=== PATIENT | female | born 1995 | race Caucasian/White ===

== ENCOUNTER 2016-10-24 20:23 | Outpatient (CLI) | payer OTHER ==
[2016-10-24 21:47] LABS: Amorphous Sediment,Urine Rare /hpf; Appearance,Urine Cloudy (Clear); Bacteria,Urine Rare /hpf; Bilirubin,Urine Negative (Negative); Glucose,Urine (UA) Negative (Negative); Ketones,Urine Negative (Negative); Leukocyte Esterase,Urine Large (Negative); Mucus,Urine Occasional /hpf; Nitrite,Urine Negative (Negative); PH, Urine 6.5 (5.0-8.0); Particle Count 10482; Protein,Urine 1+ (Negative); RBC,Urine 10 /hpf (0-5); Specific Gravity,Urine 1.022 (1.001-1.035); Squamous Epithelial Cell,Urine 7 /hpf (0-4); UA Billing (MACRO vs. MICRO) MICRO; WBC,Urine 46 /hpf (0-5)
[2016-10-24] MEDS ORDERED: CEPHALEXIN 500 MG CAP PO STA (21:56)
== END 2016-10-24 22:18 | disposition home or self-care (01) ==
LOC: FBPOP 20:23
PROVIDERS: ATTEND Obstetrics & Gynecology
DX: O99.89 Other specified diseases and conditions complicating pregnancy, childbirth and the puerperium (principal); Z3A.34 34 weeks gestation of pregnancy
CPT/HCPCS: 59025; 82731; 81001; G0463; 99213

== ENCOUNTER 2016-11-02 19:11 | Emergency (ER) | payer OTHER ==
[2016-11-02] MEDS ORDERED: ALBUTEROL NEBULIZED 2.5 MG/3 ML INHALATION STA (22:24)
[2016-11-02 22:37] VITALS: RESP 20
--- NOTE | 2016-11-02 22:49 | ED ---
URI HPI - General Chief Complaint: Upper Respiratory Infection Stated Complaint: Cough Time Seen by Provider: 11/02/16 22:00 Source: patient, RN notes reviewed Mode of arrival: ambulatory Limitations: no limitations - History of Present Illness Initial Comments: Patient is a 21-year-old female presenting to the with chief complaint of cough for approximately one week. She also reports that she has upper respiratory congestion. Patient is 36 weeks . Patient states that she has increased chest discomfort with coughing. Patient reports that she's had no fever or chills. She states that she's recently been placed on Keflex for a urinary tract infection is completed one day of it. Patient reports that her daughter has similar symptoms as well for approximately one week. Patient reports that she was seen approximately 2 months ago for cough and shortness of breath. That time patient was given lab work and a CT angiogram of her chest revealed no evidence of pulmonary embolism. Patient reports that she does have a history of asthma. Patient denies any recent fever, chills, shortness of breath, chest pain, back pain, abdominal pain, nausea vomiting, numbness or tingling, dysuria or hematuria, constipation or diarrhea, headaches or visual changes, or any other current symptoms - Related Data Home Medications Medication Instructions Recorded Confirmed Pnv with Ca,No.72/Iron/FA 1 tab PO HS 03/22/16 11/02/16 [ Plus Tablet] levETIRAcetam [Keppra] 500 mg PO BID 06/02/16 11/02/16 Folic Acid 1 mg PO HS 08/28/16 11/02/16 Allergies Allergy/AdvReac Type Severity Reaction Status Date / Time Sulfa (Sulfonamide Allergy Rash/Hives Verified 11/02/16 20:11 Antibiotics) NUTS Allergy Anaphylaxis Uncoded 11/02/16 20:11 Review of Systems ROS Statement: Those systems with pertinent positive or pertinent negative responses have been documented in the HPI. ROS Other: All systems not noted in ROS Statement are negative. Past Medical History Past Medical History: Seizure Disorder Additional Past Medical History / Comment(s): cerebral palsy History of Any Multi-Drug Resistant Organisms: None Reported Past Surgical History: No Surgical Hx Reported Past Anesthesia/Blood Transfusion Reactions: No Reported Reaction Additional Past Anesthesia/Blood Transfusion Reaction / Comment(s): FATHER- TAKES LONGER TO WAKE UP WITH ANESTHESIA" Past Psychological History: Anxiety, Bipolar Smoking Status: Never smoker Past Alcohol Use History: None Reported Past Drug Use History: None Reported General Exam - General Exam Comments Initial Comments: Patient is a pleasant 21-year-old female. She is on appear to be in any acute distress. Limitations: no limitations General appearance: alert, in no apparent distress Head exam: Present: atraumatic, normocephalic, normal inspection Eye exam: Present: normal appearance, PERRL, EOMI. Absent: scleral icterus, conjunctival injection, periorbital swelling ENT exam: Present: normal exam, mucous membranes moist Neck exam: Present: normal inspection. Absent: tenderness, meningismus, lymphadenopathy Respiratory exam: Present: normal lung sounds bilaterally, rhonchi (Mild rhonchi that is cleared with coughing.). Absent: respiratory distress, wheezes , rales, stridor Cardiovascular Exam: Present: regular rate, normal rhythm, normal heart sounds. Absent: systolic murmur, diastolic murmur, rubs, gallop, clicks GI/Abdominal exam: Present: soft, normal bowel sounds, other (Evidence of 36 weeks gestation.). Absent: distended, tenderness, guarding, rebound, rigid Extremities exam: Present: normal inspection, full ROM, normal capillary refill. Absent: tenderness, pedal edema, joint swelling, calf tenderness Back exam: Present: normal inspection Neurological exam: Present: alert, oriented X3, CN II-XII intact Psychiatric exam: Present: normal affect, normal mood Skin exam: Present: warm, dry, intact, normal color. Absent: rash Course Vital Signs 11/02/16 11/02/16 11/02/16 20:08 22:36 22:40 Temperature 97.3 F L Pulse Rate 104 H 88 Respiratory 18 20 Rate Blood Pressure 105/51 O2 Sat by Pulse 96 Oximetry 11/02/16 11/03/16 22:45 00:29 Temperature 98 F Pulse Rate 88 87 Respiratory 20 Rate Blood Pressure 133/70 O2 Sat by Pulse 98 Oximetry Medical Decision Making - Medical Decision Making Patient is a 21-year-old 36 weeks female with chief complaint of cough and upper a story congestion for approximately one week. Patient reports she has had no fevers. She reports that she's had increased chest discomfort with her coughing. Patient reports that she was given a CT angiogram approximately one month ago and had negative for PE. Patient denies any shortness of breath at this time. She denies any pleuritic chest pain. Patient is given a chest x- ray and albuterol breathing treatment. A verbal report of CXR was given by Dr. Cabrera and is negative for any acute process. Patient reports mild improvement after breathing treatment. Given that patient has been on Keflex for UTI for one day, I advised patient to continue. Patient will be diagnosed with viral upper respiratory syndrome. Given patient is , we will avoid steroids at this time. I advised at home remedies for decongestatns. REturn parameters discussed. Patient understands treatment plan and will comply. 11/02/16 22:56 EKG shows normal sinus rhythm. There is minimal criteria for LVH. Ventricular rate 100 bpm. NM interval is 42 ms. QRS duration 70 ms. QT/QTc is 334/4:30 milliseconds. - Radiology Data Radiology results: report reviewed CXR shows no acute process. Disposition Clinical Impression: Upper respiratory infection Disposition: HOME SELF-CARE Condition: Good Instructions: Upper Respiratory Infection (ED) Additional Instructions: Is instructed to follow-up with primary care physician in one to 2 days. Also follow-up with pattern generator operator Laura in regards to daughter's illness. Patient also instructed to use [id number] remedies such as tea and humidifiers to help with decongestion. Patient return to the [facility] if any alarming signs or symptoms occur. Referrals: Lawrence Bueno MD [Primary Care Provider] - 1-2 days Time of Disposition: 00:04
[2016-11-03 00:30] VITALS: BP 133/70; PULSE 87; TEMP 98
--- NOTE | 2017-01-22 13:14 | XR ---
EXAMINATION TYPE: XR chest 2V DATE OF EXAM: 11/02/2016 11:06 PM COMPARISON: 08/28/2016 HISTORY: Complaints of chest pain and cough. TECHNIQUE: Frontal and lateral views of the chest are obtained. FINDINGS: There is no focal air space opacity, pleural effusion, or pneumothorax seen. The cardiac silhouette size is within normal limits. The osseous structures are intact. IMPRESSION: 1. No acute cardiopulmonary process. 2. No significant interval change.
== END 2016-11-03 00:30 | disposition home or self-care (01) ==
LOC: EC 19:11
DX: O99.513 Diseases of the respiratory system complicating pregnancy, third trimester (principal); J06.9 Acute upper respiratory infection, unspecified; G40.909 Epilepsy, unspecified, not intractable, without status epilepticus; Z3A.36 36 weeks gestation of pregnancy; Z88.2 Allergy status to sulfonamides; Z91.018 Allergy to other foods; Z79.899 Other long term (current) drug therapy
CPT/HCPCS: 71020; 93005; 94640; 99283

== ENCOUNTER 2016-11-05 20:31 | Outpatient (CLI) | payer OTHER | END 2016-11-05 21:55 | disposition home or self-care (01) | LOC: FBPOP 20:31 | PROVIDERS: ATTEND Obstetrics & Gynecology | DX: O62.2 Other uterine inertia (principal); O23.43 Unspecified infection of urinary tract in pregnancy, third trimester; Z3A.36 36 weeks gestation of pregnancy | CPT/HCPCS: 59025; G0463; 99213 ==

== ENCOUNTER 2016-11-14 12:18 | Inpatient (IN) | payer OTHER ==
[2016-11-14 13:05] LABS: Basophils % (A) 0 %; CH 26.6; CHCM 31.5; Eosinophils # (A) 0.1 k/uL (0-0.7); Eosinophils % (A) 1 %; HCT 31.5 % (34.0-46.0); HDW 3.58; Hypochromasia Moderate; Luc % (Auto) 3; Lymphocytes # (A) 1.4 k/uL (1.0-4.8); Lymphocytes % (A) 17 %; MCH 26.9 pg (25.0-35.0); MCHC 31.7 g/dL (31.0-37.0); MCV 84.8 fL (80.0-100.0); Mean Platelet Volume 9.4; Monocytes # (A) 0.5 k/uL (0-1.0); Monocytes % (A) 6 %; Neutrophils % (A) 73 %; Poikilocytosis Slight; RBC 3.72 m/uL (3.80-5.40); RDW 15.2 % (11.5-15.5); WBC 8.3 k/uL (3.8-10.6); WBC (Perox) 8.81
[2016-11-14 13:16] LABS: ALT 29 U/L (9-52); AST 18 U/L (14-36); Blood Urea Nitrogen 11 mg/dL (7-17); LDH 481 U/L (313-618); Non-African American GFR(MDRD) >60 (>60 ml/min/1.73 sqM); Uric Acid 5.4 mg/dL (3.7-7.4)
[2016-11-14 13:38] LABS: Appearance,Urine Clear (Clear); Bacteria,Urine Rare /hpf; Bilirubin,Urine Negative (Negative); Glucose,Urine (UA) Negative (Negative); Ketones,Urine Negative (Negative); Leukocyte Esterase,Urine Moderate (Negative); Mucus,Urine Rare /hpf; Nitrite,Urine Negative (Negative); Particle Count 4131; Protein,Urine Trace (Negative); Specific Gravity,Urine 1.016 (1.001-1.035); Squamous Epithelial Cell,Urine 2 /hpf (0-4); UA Billing (MACRO vs. MICRO) MICRO; Urobilinogen,Urine <2.0 mg/dL (<2.0); WBC,Urine 10 /hpf (0-5)
[2016-11-14] MEDS: LACTATED RINGERS 1,000 ML IV SCH ×3 (14:37→19:15)
--- NOTE | 2016-11-14 16:46 | P.HPOB ---
History of Present Illness H&P Date: 11/14/16 Chief Complaint: IUP at 37 weeks: Active labor: Questionable gestational hypertension Patient is a 21-year-old at 37 weeks gestation who arrived having some vague complaints. She had pain and discomfort and heaviness in her vagina as well as initially some blood pressures that were minimally elevated. We have observed her in triage for a number of hours and over the last 45 minutes to hours she began having contractions that were significantly more regular. She is Feeling the contractions every approximately 5-6 minutes and after initial exam of 480 and -2 she is now 5-1/2 and 90 and about -2-1. She is admitted for labor. 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 She initially was supposed to go to high risk but she really went 1 or 2 times before stopping going to the high risk people as she could not make it there with regularity. She is also on Tegretol for a seizure disorder but has not had any seizures in a very long time. Pertinent labs do include O+ blood type Rh antibody was negative rubella is low positive hepatitis B surface antigen and RPR both negative groupie strep was also negative. Asthma intrauterine at term active labor with cervical dilation of the last 12 hours. Plan expect spontaneous vaginal delivery. She does have cerebral palsy and therefore cannot have an epidural. We'll manage her with IV pain medications as needed. Past Medical History Past Medical History: Seizure Disorder Additional Past Medical History / Comment(s): cerebral palsy History of Any Multi-Drug Resistant Organisms: None Reported Past Surgical History: No Surgical Hx Reported Past Anesthesia/Blood Transfusion Reactions: No Reported Reaction Additional Past Anesthesia/Blood Transfusion Reaction / Comment(s): FATHER- TAKES LONGER TO WAKE UP WITH ANESTHESIA" Past Psychological History: Anxiety, Bipolar Smoking Status: Never smoker Past Alcohol Use History: None Reported Past Drug Use History: None Reported Medications and Allergies Home Medications Medication Instructions Recorded Confirmed Type Pnv with Ca,No.72/Iron/FA 1 tab PO HS 03/22/16 11/07/16 History [ Plus Tablet] levETIRAcetam [Keppra] 500 mg PO BID 06/02/16 11/07/16 History RX: Folic Acid 1 mg PO HS 08/28/16 11/07/16 History Cephalexin [Keflex] 500 mg PO QID 11/05/16 11/07/16 History Allergies Allergy/AdvReac Type Severity Reaction Status Date / Time Sulfa (Sulfonamide Allergy Rash/Hives Verified 11/14/16 12:39 Antibiotics) NUTS Allergy Anaphylaxis Uncoded 11/14/16 12:39 Exam Osteopathic Statement: *. No significant issues noted on an osteopathic structural exam other than those noted in the History and Physical/Consult. - Vital Signs Vital signs: Intake and Output 11/14/16 11/14/16 11/14/16 06:59 14:59 22:59 Other: Weight 84.822 kg Patient Weight 11/15/16 06:59 Weight 84.822 kg - OBG Physical Exam Breast: both: normal (no masses) Abdomen: bowel sounds normal, no diffuse tenderness, no bruit present, no guarding noted, no hepatomegaly, no splenomegaly, no mass Vulva: both: normal Vagina: normal moisture, no discharge Cervix: no lesion (Dilated to 5.5 meters), no discharge Uterus: enlarged Adnexa: both: normal Anus/Rectum: normal perianal skin, no rectal mass, no hemorrhoids, heme negative Results Result Diagrams: 11/14/16 12:50 11/14/16 12:50 Abnormal Lab Results - Last 24 Hours (Table) 11/14/16 11/14/16 Range/Units 12:43 12:50 RBC 3.72 L (3.80-5.40) m/uL Hgb 10.0 L (11.4-16.0) gm/dL Hct 31.5 L (34.0-46.0) % Urine Protein Trace H (Negative) Ur Leukocyte Esterase Moderate H (Negative) Urine WBC 10 H (0-5) /hpf Urine Bacteria Rare H (None) /hpf Urine Mucus Rare H (None) /hpf
[2016-11-14] MEDS ORDERED: TERBUTALINE 1 MG/ML VIAL SQ PRN (17:16)
[2016-11-14] MEDS ORDERED: OXYTOCIN 10 UNIT/ML 1 ML VIAL IM PRN (17:16)
[2016-11-14] MEDS ORDERED: METHYLERGONOVINE 0.2 MG/ML 1 ML AMP IM PRN (17:16)
[2016-11-14] MEDS ORDERED: CARBOPROST TROMETHAMINE 250 MCG/ML 1 ML AMP IM PRN (17:16)
[2016-11-14] MEDS ORDERED: LIDOCAINE 1% (PF) 10 MG/ML (30 ML SDV) SQ PRN (17:16)
[2016-11-14] MEDS ORDERED: LACTATED RINGERS 1,000 ML IV SCH (17:30)
[2016-11-14] MEDS ORDERED: OXYTOCIN 30 UNITS/500 ML NS 30 UNIT in SALINE 1 500ML.BAG IV SCH (17:30)
[2016-11-14 17:51] VITALS: BMI 34.2
[2016-11-14] MEDS ORDERED: BUTORPHANOL 1 MG/ML 1 ML VIAL IV PRN (17:56)
[2016-11-14] MEDS: levETIRAcetam 500 MG TAB PO SCH ×2 (18:13→23:58)
--- NOTE | 2016-11-14 20:56 | P.PROBDLV ---
Vaginal Delivery Note - . Vaginal Delivery Note: Normal spontaneous vaginal delivery viable female infant Apgars 8 and 9 delivery time is 2042 hours. Please see dictated H&P per Dr. Haile on this patient's admission. Brief summary this is a pleasant 21-year-old 2 para 1 female 37-6/7 weeks gestation admitted to labor and delivery for evaluation of multiple symptoms including hypertension. Patient's found to be in active labor. Patient is artificial rupture membranes at 5 cm dilated for clear fluid. She does receive some Pitocin augmentation of labor. Due to multiple neurologic disorders, the patient is not a epidural candidate so she receives one dose of intrapartum Stadol for pain control. Patient progresses quickly and pushes the head and one push to the perineum. The posterior perineum was supported and we have controlled delivery of the 's head over the intact perineum. Mouth and nares are bulb suctioned. There is no evidence of a nuchal cord. With gentle downward traction we then have deliver the anterior and posterior shoulder and rest this infant's body. This is a vigorous viable female infant Apgars are 8 and 9 delivery time is 2042 hours. has spontaneous respirations and good cry and grossly appears normal after delivery of the the umbilical cord is doubly clamped and cut appears to be trivascular. The placenta spontaneously delivered intact. Estimated blood loss is 150 mL. There no lacerations and no repairs indicated. All counts are correct 3. There are no complications. and mother are stable in delivery room.
[2016-11-14] MEDS ORDERED: MEASLES-MUMPS-RUBELLA VACC/PF 12,500 UNIT/0.5 ML VIAL SQ ONE (22:38)
[2016-11-14] MEDS ORDERED: HYDROCORTISONE 2.5% RECTAL CREAM 30 GM TUBE RECTAL PRN (22:38)
[2016-11-14] MEDS ORDERED: Acetaminophen-Codeine 300-30mg TAB PO PRN ×2 (22:38)
[2016-11-14] MEDS ORDERED: LANOLIN CREAM 5 GM TUBE TOPICAL PRN (22:38)
[2016-11-14] MEDS ORDERED: WITCH HAZEL 1 EACH MED..PAD TOPICAL PRN (22:38)
[2016-11-14] MEDS ORDERED: diphenhydrAMINE 50 MG/ML 1 ML VIAL IVP PRN ×2 (22:38)
[2016-11-14] MEDS ORDERED: BENZOCAINE/MENTHOL SPRAY 1 GM/SPRAY AEROSOL TOPICAL PRN (22:38)
[2016-11-14] MEDS ORDERED: ACETAMINOPHEN TAB 325 MG TAB PO PRN (22:38)
[2016-11-14] MEDS ORDERED: SIMETHICONE 80 MG CHEWABLE PO PRN (22:38)
[2016-11-14] MEDS ORDERED: ZOLPIDEM 5 MG TAB PO PRN (22:38)
[2016-11-14] MEDS ORDERED: diphenhydrAMINE 50 MG CAP PO PRN (22:38)
[2016-11-14] MEDS ORDERED: diphenhydrAMINE 25 MG CAP PO PRN (22:38)
[2016-11-14] MEDS: OXYTOCIN 30 UNITS/500 ML NS 30 UNIT in SALINE 1 500ML.BAG IV SCH (22:44)
[2016-11-14] MEDS: SENNOSIDES-DOCUSATE SODIUM 1 EACH TAB PO SCH (23:58)
[2016-11-15] MEDS: OXYTOCIN 30 UNITS/500 ML NS 30 UNIT in SALINE 1 500ML.BAG IV SCH ×2 (03:49→08:02)
[2016-11-15] MEDS: IBUPROFEN 600 MG TAB PO PRN ×2 (04:42→18:40)
[2016-11-15] MEDS: SENNOSIDES-DOCUSATE SODIUM 1 EACH TAB PO SCH (08:08)
[2016-11-15] MEDS: levETIRAcetam 500 MG TAB PO SCH ×2 (08:12→20:34)
--- NOTE | 2016-11-15 09:12 | P.PNOBGVD ---
Subjective - Subjective Principal diagnosis: day 1 Interval history: Overall patient is doing very well. She is ambulating, voiding, and tolerating her diet. She voices no complaints. Patient reports: Reports appetite normal, Reports voiding normally, Reports pain well controlled, Reports ambulating normally [place]: doing well Objective - Latest Vital Signs Latest vital signs: Vital Signs Temp Pulse Resp BP Pulse Ox 11/15/16 08:00 98.0 F 100 17 128/72 97 11/15/16 03:47 97.4 F L 92 16 142/75 97 11/14/16 22:57 89 16 127/76 11/14/16 22:27 88 16 124/74 11/14/16 21:57 95 16 128/72 98 11/14/16 21:42 103 H 18 126/80 99 11/14/16 21:27 96 18 128/89 98 11/14/16 21:12 100 19 128/89 100 11/14/16 20:57 97.0 F L 111 H 20 136/83 98 11/14/16 17:02 95.9 F L 116 H 17 132/87 97 Intake and Output 11/14/16 11/15/16 11/15/16 22:59 06:59 14:59 Intake Total 377.367 Output Total 150 Balance 227.367 Intake: IV 375 Lactated Ringers 1,000 ml 375 @ 999 mls/hr IV .Q1H1M LANCE Rx#:[id number] Intake, IV Titration 2.367 Amount Oxytocin 30 Units/500 ml 2.367 Ns 30 unit In Saline 1 500ml.bag @ 1 MILLIUNIT/ MIN 1 mls/hr IV .Q24H LANCE Rx#:[id number] Output: Estimated Blood Loss 150 Other: # Voids 2 1 2 Weight 84.822 kg - Exam Lungs: bilateral: normal Chest: Normal S1, Normal S2 Extremities: Present: normal Abdomen: Present: normal appearance, soft Uterus: Present: normal, firm - Labs Labs: Abnormal Lab Results - Last 24 Hours (Table) 11/14/16 11/14/16 Range/Units 12:43 12:50 RBC 3.72 L (3.80-5.40) m/uL Hgb 10.0 L (11.4-16.0) gm/dL Hct 31.5 L (34.0-46.0) % Urine Protein Trace H (Negative) Ur Leukocyte Esterase Moderate H (Negative) Urine WBC 10 H (0-5) /hpf Urine Bacteria Rare H (None) /hpf Urine Mucus Rare H (None) /hpf
[2016-11-16] MEDS: SENNOSIDES-DOCUSATE SODIUM 1 EACH TAB PO SCH ×2 (01:21→08:00)
[2016-11-16 07:57] VITALS: RESP 18
--- NOTE | 2016-11-16 08:53 | P.DS ---
Providers Date of admission: 11/14/16 16:36 Expected date of discharge: 11/16/16 Attending physician: Yaron Haile Primary care physician: Stated None Hospital Course: Patient is doing very well day 2. She is ambulating, voiding, and she is tolerating her diet. She voices no complaints. Her vital signs are stable and she is afebrile. Her heart is regular, lungs are clear, extremities are without pain. Abdomen soft uterus is firm lochia is reported be light. Assessment post day 2. Plan discharged home follow up with me in 6 weeks. Prescription for a breast pump has been provided she requests no medications for pain and discharge instructions were thoroughly reviewed and all questions are answered for her prior to her discharge. She is stable for discharge at this time. Patient Condition at Discharge: Good Plan - Discharge Summary Discharge Medication List Pnv with Ca,No.72/Iron/FA [ Plus Tablet] 1 tab PO HS 03/22/16 [History] levETIRAcetam [Keppra] 500 mg PO BID 06/02/16 [History] Folic Acid 1 mg PO HS 08/28/16 [History] Follow up Appointment(s)/Referral(s): Yaron Haile DO [Doctor of Osteopathic Medicine] - 6 Weeks Activity/Diet/Wound Care/Special Instructions: No heavy lifting, limit stairs and driving and pelvic rest. If any high temperatures, heavy bleeding or severe pain call my office. Discharge Disposition: HOME SELF-CARE
[2016-11-16] MEDS: levETIRAcetam 500 MG TAB PO SCH (11:04)
[2016-11-16 16:09] VITALS: BP 133/79; PULSE 82; TEMP 98.3
== END 2016-11-16 20:15 | disposition home or self-care (01) | DRG 775 ==
LOC: FBPOP 12:18 → 4FBP 16:36
PROVIDERS: ADMIT Obstetrics & Gynecology; ATTEND Obstetrics & Gynecology
PROC: 10E0XZZ Delivery of Products of Conception, External Approach (ICD-10-PCS; principal; 2016-11-14)
DX: O13.4 Gestational [pregnancy-induced] hypertension without significant proteinuria, complicating childbirth (principal); O99.354 Diseases of the nervous system complicating childbirth; O99.344 Other mental disorders complicating childbirth; F31.9 Bipolar disorder, unspecified; F41.9 Anxiety disorder, unspecified; O99.52 Diseases of the respiratory system complicating childbirth; J45.909 Unspecified asthma, uncomplicated; G40.909 Epilepsy, unspecified, not intractable, without status epilepticus; G80.9 Cerebral palsy, unspecified; Z3A.37 37 weeks gestation of pregnancy; Z37.0 Single live birth; Z88.2 Allergy status to sulfonamides
CPT/HCPCS: 59025; 81001; 82565; 83615; 84450; 84460; 84520; 84550; 85025; 88307; 90707; 96360; 96361; 99215

== ENCOUNTER 2016-11-18 12:05 | Emergency (ER) | payer OTHER ==
--- NOTE | 2016-11-18 13:35 | ED ---
Skin/Abscess/FB HPI - General Chief complaint: Skin/Abscess/Foreign Body Stated complaint: breast pain Time Seen by Provider: 11/18/16 13:20 Source: patient, RN notes reviewed Mode of arrival: ambulatory Limitations: no limitations - History of Present Illness Initial comments: 21-year-old female presents emergency Department chief complaint of left breast swelling and pain. Patient states that she delivered on the first she's been breast-feeding. Patient states she is not having problems with the right breast that the left breast become tender or firm and swollen. Patient states that she is not getting much milk out of it either. Patient states it just started hurting cause her discomfort so she thought that she should be seen. Patient denies any fever chills with this. Patient denies any cough cold runny nose. Patient denies any history of this in the past. Patient states that she is not currently having any other symptoms. Patient states she was concerned due to to the swelling so she thought that she should be seen.Patient denies any recent fever, chills, shortness of breath, chest pain, back pain, abdominal pain, nausea vomiting, numbness or tingling, dysuria or hematuria, constipation or diarrhea, headaches or visual changes, or any other current symptoms. - Related Data Home Medications Medication Instructions Recorded Confirmed Pnv with Ca,No.72/Iron/FA 1 tab PO HS 03/22/16 11/18/16 [ Plus Tablet] levETIRAcetam [Keppra] 500 mg PO BID 06/02/16 11/18/16 Folic Acid 1 mg PO HS 08/28/16 11/18/16 Previous Rx's Medication Instructions Recorded Cephalexin [Keflex] 500 mg PO Q6HR #40 cap 11/18/16 Allergies Allergy/AdvReac Type Severity Reaction Status Date / Time Sulfa (Sulfonamide Allergy Rash/Hives Verified 11/18/16 12:55 Antibiotics) NUTS Allergy Anaphylaxis Uncoded 11/18/16 12:37 Review of Systems ROS Statement: Those systems with pertinent positive or pertinent negative responses have been documented in the HPI. ROS Other: All systems not noted in ROS Statement are negative. Past Medical History Past Medical History: Seizure Disorder Additional Past Medical History / Comment(s): cerebral palsy, 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 barre in 2010 History of Any Multi-Drug Resistant Organisms: None Reported Past Surgical History: No Surgical Hx Reported Past Anesthesia/Blood Transfusion Reactions: No Reported Reaction Additional Past Anesthesia/Blood Transfusion Reaction / Comment(s): FATHER- TAKES LONGER TO WAKE UP WITH ANESTHESIA" Past Psychological History: Anxiety, Bipolar Smoking Status: Never smoker Past Alcohol Use History: None Reported Past Drug Use History: None Reported - Past Family History Mother Family Medical History: No Reported History General Exam Limitations: no limitations General appearance: alert, in no apparent distress Eye exam: Present: normal appearance, PERRL, EOMI. Absent: scleral icterus, conjunctival injection, periorbital swelling Respiratory exam: Present: normal lung sounds bilaterally. Absent: respiratory distress, wheezes, rales, rhonchi, stridor Cardiovascular Exam: Present: regular rate, normal rhythm, normal heart sounds. Absent: systolic murmur, diastolic murmur, rubs, gallop, clicks GI/Abdominal exam: Present: soft, normal bowel sounds. Absent: distended, tenderness, guarding, rebound, rigid Neurological exam: Present: alert, oriented X3, CN II-XII intact. Absent: motor sensory deficit Psychiatric exam: Present: normal affect, normal mood Skin exam: Present: warm, dry, intact, other (Patient appears to have a swollen and red left breast.) Course Vital Signs 11/18/16 12:33 Temperature 98.2 F Pulse Rate 103 H Respiratory 16 Rate Blood Pressure 141/90 O2 Sat by Pulse 99 Oximetry Medical Decision Making - Medical Decision Making 21-year-old female presents with what appears to be a mastitis. At this time patient does appear to have a mastitis. Patient does not show an obvious abscess. Patient will be started on Keflex. We discussed that we will follow up on the culture and she needs to call back in a few days for the results. We discussed continue breast-feeding continue warm compresses ice as needed for pain. The patient stated that she understood all questions have been answered. She will be discharged. - Radiology Data Radiology results: image reviewed Interpreted by me: tech report reviewed Disposition Clinical Impression: Acute mastitis of left breast Disposition: HOME SELF-CARE Condition: Stable Instructions: Mastitis (ED) Additional Instructions: Please use medication as discussed. Please follow up with family doctor if symptoms have not improved over the next two days. Please return to the emergency room if your symptoms increase or worsen or for any other concerns. Prescriptions: Cephalexin [Keflex] 500 mg PO Q6HR #40 cap Referrals: Lawrence Bueno MD [Primary Care Provider] - 1-2 days Time of Disposition: 14:52
[2016-11-18] MEDS ORDERED: ACETAMINOPHEN TAB 500 MG TAB PO STA (13:36)
--- NOTE | 2016-11-18 15:08 | USB ---
EXAMINATION TYPE: US breast complete LT DATE OF EXAM: 11/18/2016 2:07 PM COMPARISON: NONE CLINICAL HISTORY: 21-year-old female with Pain. Patient is and unable to express milk from the left breast for 24 hours. TECHNIQUE: Whole left breast ultrasound performed including the subareolar region and axilla. Findings: No solid or cystic lesion is seen. There is some superficial glandular thickening noted which may rel ate to normal state or soft tissue infection. Some mildly ectatic ducts are also noted. No lymphadenopathy in the axilla. IMPRESSION: BI-RADS 3 - probably benign RECOMMENDATION: 1. Clinical management for any potential cellulitis or mastitis. There is no abscess or abnormal mas s seen. 2. A 3 month follow-up exam can be performed.
[2016-11-18 15:17] VITALS: BP 137/78; PULSE 89; RESP 18; TEMP 99.2
== END 2016-11-18 15:10 | disposition home or self-care (01) ==
LOC: EC 12:05
DX: O91.22 Nonpurulent mastitis associated with the puerperium (principal); Z79.899 Other long term (current) drug therapy; Z88.2 Allergy status to sulfonamides; Z91.018 Allergy to other foods; G40.909 Epilepsy, unspecified, not intractable, without status epilepticus
CPT/HCPCS: 87070; 87077; 87186; 87205; 99284

== ENCOUNTER 2017-03-02 00:20 | Emergency (ER) | payer OTHER ==
[2017-03-02 00:46] VITALS: TEMP 98.4
[2017-03-02] MEDS ORDERED: KETOROLAC 30 MG/ML 1 ML VIAL IVP STA (02:13)
[2017-03-02] MEDS ORDERED: SODIUM CHLORIDE 0.9% 1,000 ML IV ONE (02:13)
--- NOTE | 2017-03-02 02:16 | ED ---
Dizziness HPI - General Chief Complaint: Dizziness Stated Complaint: dizziness,headache Time Seen by Provider: 03/02/17 01:32 Source: patient, RN notes reviewed Mode of arrival: wheelchair Limitations: no limitations - History of Present Illness Initial Comments: Patient is a 21-year-old female presents to the emergency room for evaluation of dizziness. Patient states she shopping earlier today felt very dizzy and almost fell into her shopping cart. Patient states that her friend caught her. Patient denies loss of consciousness. Patient denies head trauma or any injuries. Patient states she has been feeling very dizzy and 6 out of 10 headache ever since. Patient denies changes in vision. Patient denies ear pain or ringing in ears. Patient denies any current shortness of breath or chest pain. Patient denies nausea or vomiting. Patient denies recent changes in medications. Patient does state that she ate today. Patient denies abdominal pain. Patient denies any chance of . Patient states she recently started new control. Patient states she's had vaginal bleeding ever since she started this new control. patient denies any pain or burning during urination, trouble urinating or blood in urine. She denies vaginal discomfort. Patient denies history of STDs. - Related Data Home Medications Medication Instructions Recorded Confirmed levETIRAcetam [Keppra] 500 mg PO BID 06/02/16 03/02/17 Folic Acid 1 mg PO HS 08/28/16 03/02/17 Mirena Iud 03/02/17 Previous Rx's Medication Instructions Recorded Ciprofloxacin HCl [Cipro] 500 mg PO Q12HR 10 Days 03/02/17 Allergies Allergy/AdvReac Type Severity Reaction Status Date / Time Sulfa (Sulfonamide Allergy Rash/Hives Verified 11/18/16 12:55 Antibiotics) NUTS Allergy Anaphylaxis Uncoded 11/18/16 12:37 Review of Systems ROS Statement: Those systems with pertinent positive or pertinent negative responses have been documented in the HPI. ROS Other: All systems not noted in ROS Statement are negative. Past Medical History Past Medical History: Seizure Disorder Additional Past Medical History / Comment(s): cerebral palsy, 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 barre in 2010 History of Any Multi-Drug Resistant Organisms: None Reported Past Surgical History: No Surgical Hx Reported Past Anesthesia/Blood Transfusion Reactions: No Reported Reaction Additional Past Anesthesia/Blood Transfusion Reaction / Comment(s): FATHER- TAKES LONGER TO WAKE UP WITH ANESTHESIA" Past Psychological History: Anxiety, Bipolar Smoking Status: Never smoker Past Alcohol Use History: None Reported Past Drug Use History: None Reported - Past Family History Mother Family Medical History: No Reported History General Exam - General Exam Comments Initial Comments: sitting in exam room, no acute distress. Limitations: no limitations General appearance: alert, in no apparent distress Head exam: Present: atraumatic, normocephalic, normal inspection Eye exam: Present: normal appearance, PERRL, EOMI Pupils: Present: normal accommodation ENT exam: Present: normal exam Neck exam: Present: normal inspection Respiratory exam: Present: normal lung sounds bilaterally. Absent: respiratory distress Cardiovascular Exam: Present: regular rate, normal rhythm, normal heart sounds GI/Abdominal exam: Present: soft, normal bowel sounds. Absent: distended, tenderness, guarding, rebound, rigid Extremities exam: Present: normal inspection Back exam: Present: normal inspection Neurological exam: Present: alert, oriented X3, CN II-XII intact, normal gait Psychiatric exam: Present: normal affect, normal mood Skin exam: Present: warm, dry, intact, normal color. Absent: rash Course Vital Signs 03/02/17 03/02/17 00:42 03:12 Temperature 98.4 F Pulse Rate 78 Pulse Rate [ 92 Left Standing] Pulse Rate [ 88 Sitting Appeals And Generalist Clerk] Pulse Rate [ 74 Supine Appeals And Generalist Clerk] Respiratory 18 Rate Blood Pressure 113/60 Blood Pressure 128/78 [Left Arm Standing] Blood Pressure 124/72 [Right Arm Sitting] Blood Pressure 119/57 [Right Arm Supine] O2 Sat by Pulse 100 Oximetry EKG Findings - EKG Comments: EKG Findings:: EKG: Normal sinus rhythm, ventricular rate 76 bpm, IN interval 160 ms, QRS duration 86 ms, QT/QTc 424/477 ms Medical Decision Making - Medical Decision Making patient is a 21-year-old female since emergency room for evaluation of dizziness. Labs no concerning findings. Urinalysis suspicious for urinary tract infection. Patient be given a gram of Rocephin in the emergency room and sent home with Kory. Advised patient to follow-up with her primary care provider on Saturday for reevaluation. Patient states she understands everything that was discussed with her. Return parameters discussed. Case discussed with Dr. Solis. - Lab Data Result diagrams: 03/02/17 03:15 03/02/17 03:15 Lab Results 03/02/17 03/02/17 03/02/17 Range/Units 03:15 03:15 03:15 WBC 7.6 (3.8-10.6) k/uL RBC 4.43 (3.80-5.40) m/uL Hgb 12.0 (11.4-16.0) gm/dL Hct 38.6 (34.0-46.0) % MCV 87.1 (80.0-100.0) fL MCH 27.1 (25.0-35.0) pg MCHC 31.1 (31.0-37.0) g/dL RDW 14.5 (11.5-15.5) % Plt Count 232 (150-450) k/uL Neutrophils % 59 % Lymphocytes % 31 % Monocytes % 5 % Eosinophils % 2 % Basophils % 1 % Neutrophils # 4.5 (1.3-7.7) k/uL Lymphocytes # 2.4 (1.0-4.8) k/uL Monocytes # 0.4 (0-1.0) k/uL Eosinophils # 0.2 (0-0.7) k/uL Basophils # 0.0 (0-0.2) k/uL Hypochromasia Slight Sodium 143 (137-145) mmol/L Potassium 4.1 (3.5-5.1) mmol/L Chloride 109 H (98-107) mmol/L Carbon Dioxide 24 (22-30) mmol/L Anion Gap 10 mmol/L BUN 17 (7-17) mg/dL Creatinine 0.80 (0.52-1.04) mg/dL Est GFR (MDRD) Af Amer >60 (>60 ml/min/1.73 sqM) Est GFR (MDRD) Non-Af >60 (>60 ml/min/1.73 sqM) Glucose 80 (74-99) mg/dL Calcium 9.1 (8.4-10.2) mg/dL Total Bilirubin 0.3 (0.2-1.3) mg/dL AST 29 (14-36) U/L ALT 29 (9-52) U/L Alkaline Phosphatase 107 (38-126) U/L Total Protein 6.8 (6.3-8.2) g/dL Albumin 4.1 (3.5-5.0) g/dL Urine Color Urine Appearance (Clear) Urine pH (5.0-8.0) Ur Specific [place] (1.001-1.035) Urine Protein (Negative) Urine Glucose (UA) (Negative) Urine Ketones (Negative) Urine Blood (Negative) Urine Nitrite (Negative) Urine Bilirubin (Negative) Urine Urobilinogen (<2.0) mg/dL Ur Leukocyte Esterase (Negative) Urine RBC (0-5) /hpf Urine WBC (0-5) /hpf Urine WBC Clumps (None) /hpf Ur Squamous Epith Cells (0-4) /hpf Urine Mucus (None) /hpf Urine HCG, Qual Not Detected (Not Detectd) 03/02/17 Range/Units 03:15 WBC (3.8-10.6) k/uL RBC (3.80-5.40) m/uL Hgb (11.4-16.0) gm/dL Hct (34.0-46.0) % MCV (80.0-100.0) fL MCH (25.0-35.0) pg MCHC (31.0-37.0) g/dL RDW (11.5-15.5) % Plt Count (150-450) k/uL Neutrophils % % Lymphocytes % % Monocytes % % Eosinophils % % Basophils % % Neutrophils # (1.3-7.7) k/uL Lymphocytes # (1.0-4.8) k/uL Monocytes # (0-1.0) k/uL Eosinophils # (0-0.7) k/uL Basophils # (0-0.2) k/uL Hypochromasia Sodium (137-145) mmol/L Potassium (3.5-5.1) mmol/L Chloride (98-107) mmol/L Carbon Dioxide (22-30) mmol/L Anion Gap mmol/L BUN (7-17) mg/dL Creatinine (0.52-1.04) mg/dL Est GFR (MDRD) Af Amer (>60 ml/min/1.73 sqM) Est GFR (MDRD) Non-Af (>60 ml/min/1.73 sqM) Glucose (74-99) mg/dL Calcium (8.4-10.2) mg/dL Total Bilirubin (0.2-1.3) mg/dL AST (14-36) U/L ALT (9-52) U/L Alkaline Phosphatase (38-126) U/L Total Protein (6.3-8.2) g/dL Albumin (3.5-5.0) g/dL Urine Color Yellow Urine Appearance Cloudy H (Clear) Urine pH 6.5 (5.0-8.0) Ur Specific [place] 1.022 (1.001-1.035) Urine Protein 1+ H (Negative) Urine Glucose (UA) Negative (Negative) Urine Ketones Negative (Negative) Urine Blood Large H (Negative) Urine Nitrite Negative (Negative) Urine Bilirubin Negative (Negative) Urine Urobilinogen 2.0 (<2.0) mg/dL Ur Leukocyte Esterase Large H (Negative) Urine RBC >182 H (0-5) /hpf Urine WBC >182 H (0-5) /hpf Urine WBC Clumps Occasional H (None) /hpf Ur Squamous Epith Cells 18 H (0-4) /hpf Urine Mucus Rare H (None) /hpf Urine HCG, Qual (Not Detectd) Disposition Clinical Impression: Urinary tract infection Disposition: HOME SELF-CARE Condition: Good Instructions: Urinary Tract Infection in Women (ED) Additional Instructions: Take antibiotics as directed. Please follow up with primary care provider on Saturday. If any new symptom arises or symptoms worsen, return to ER as soon as possible. Prescriptions: Ciprofloxacin HCl [Cipro] 500 mg PO Q12HR 10 Days Referrals: Lawrence Bueno MD [Primary Care Provider] - 1-2 days Time of Disposition: 04:33
[2017-03-02 03:41] LABS: Basophils % (A) 1 %; CH 27.2; CHCM 31.3; Eosinophils # (A) 0.2 k/uL (0-0.7); Eosinophils % (A) 2 %; HCT 38.6 % (34.0-46.0); HDW 2.72; Hypochromasia Slight; Luc # (Auto) 0.14; Luc % (Auto) 2; Lymphocytes # (A) 2.4 k/uL (1.0-4.8); Lymphocytes % (A) 31 %; MCH 27.1 pg (25.0-35.0); MCHC 31.1 g/dL (31.0-37.0); MCV 87.1 fL (80.0-100.0); Mean Platelet Volume 7.7; Monocytes # (A) 0.4 k/uL (0-1.0); Monocytes % (A) 5 %; Neutrophils # (A) 4.5 k/uL (1.3-7.7); Neutrophils % (A) 59 %; RBC 4.43 m/uL (3.80-5.40); RDW 14.5 % (11.5-15.5); WBC 7.6 k/uL (3.8-10.6); WBC (Perox) 7.73
[2017-03-02 03:48] LABS: Appearance,Urine Cloudy (Clear); Bilirubin,Urine Negative (Negative); Glucose,Urine (UA) Negative (Negative); Ketones,Urine Negative (Negative); Leukocyte Esterase,Urine Large (Negative); Mucus,Urine Rare /hpf; Nitrite,Urine Negative (Negative); PH, Urine 6.5 (5.0-8.0); Particle Count 13946; Protein,Urine 1+ (Negative); RBC,Urine >182 /hpf (0-5); Specific Gravity,Urine 1.022 (1.001-1.035); Squamous Epithelial Cell,Urine 18 /hpf (0-4); UA Billing (MACRO vs. MICRO) MICRO; WBC,Urine >182 /hpf (0-5)
[2017-03-02 04:13] LABS: ALT 29 U/L (9-52); AST 29 U/L (14-36); Alkaline Phosphatase 107 U/L (38-126); Anion Gap 10 mmol/L; Blood Urea Nitrogen 17 mg/dL (7-17); Calcium 9.1 mg/dL (8.4-10.2); Carbon Dioxide 24 mmol/L (22-30); Chloride 109 mmol/L (98-107); Glucose 80 mg/dL (74-99); Non-African American GFR(MDRD) >60 (>60 ml/min/1.73 sqM); Potassium 4.1 mmol/L (3.5-5.1); Sodium 143 mmol/L (137-145); Total Bilirubin 0.3 mg/dL (0.2-1.3); Total Protein 6.8 g/dL (6.3-8.2)
[2017-03-02] MEDS ORDERED: ACETAMINOPHEN TAB 325 MG TAB PO STA (04:40)
[2017-03-02 05:58] VITALS: BP 99/51; PULSE 79; RESP 17
== END 2017-03-02 05:56 | disposition home or self-care (01) ==
LOC: EC 00:20
DX: N39.0 Urinary tract infection, site not specified (principal); G40.909 Epilepsy, unspecified, not intractable, without status epilepticus; Z88.2 Allergy status to sulfonamides; Z91.018 Allergy to other foods; Z79.899 Other long term (current) drug therapy
CPT/HCPCS: 99284; 96374; 96375; 96361; 36415; 93005; 80053; 85025; 81001; 81025; 87086; J0696; J1885

== ENCOUNTER 2017-04-03 20:43 | Emergency (ER) | payer OTHER ==
[2017-04-03 21:59] LABS: Appearance,Urine Clear (Clear); Bilirubin,Urine Negative (Negative); Glucose,Urine (UA) Negative (Negative); Ketones,Urine Negative (Negative); Leukocyte Esterase,Urine Large (Negative); Mucus,Urine Rare /hpf; Nitrite,Urine Negative (Negative); Particle Count 3533; Protein,Urine Trace (Negative); RBC,Urine 25 /hpf (0-5); Specific Gravity,Urine 1.022 (1.001-1.035); Squamous Epithelial Cell,Urine 4 /hpf (0-4); UA Billing (MACRO vs. MICRO) MICRO; Urobilinogen,Urine <2.0 mg/dL (<2.0); WBC,Urine 23 /hpf (0-5)
[2017-04-03 22:22] VITALS: TEMP 98
--- NOTE | 2017-04-03 23:07 | US ---
EXAM: US Pelvis, Transvaginal CLINICAL HISTORY: Pelvic pain. TECHNIQUE: Real-time transvaginal pelvic ultrasound (complete) with image documentation. Transvaginal imaging was used for better evaluation of the endometrium and adnexa. COMPARISON: No relevant prior studies available. FINDINGS: Uterus/cervix: Uterus measures 8.3 x 3.8 x 4.6 cm. Intrauterine device noted in the region of the lower uterine segment/upper cervical region. Endometrium measures 5 mm in thickness. Right ovary: Right ovary measures 3.0 x 1.8 x 1.6 cm. Right ovarian follicles visualized. No evidence of right ovarian torsion. Left ovary: Left ovary measures 2.7 x 2.1 x 2.3 cm. Left ovarian follicles visualized. No evidence of left ovarian torsion. Free fluid: No free fluid in the pelvis. IMPRESSION: 1. Bilateral ovaries within normal limits. No evidence of ovarian torsion. 2. Intrauterine device in the region of the lower uterine segment/upper cervical region. 3. No free fluid in the pelvis.
--- NOTE | 2017-04-03 23:20 | ED ---
Abdominal Pain HPI - General Chief Complaint: Abdominal Pain Stated Complaint: Pelvic Pain Time Seen by Provider: 04/03/17 21:07 Source: patient, RN notes reviewed, old records reviewed Mode of arrival: ambulatory Limitations: no limitations - History of Present Illness Initial Comments: This is a 21-year-old female presenting to emergency Department chief complaint of pelvic pain. Patient reports that she has an IUD. She reports that it was placed 3 months ago by her bone char kiln tender. Patient reports that yesterday when she bent over she felt a sharp sudden pain and is concerned that she may have torn or broke her IUD. Patient reports with certain movements and seems to be worse. Patient denies any dysuria or vaginal discharge. She reports that she is not concerned for special transmitted infections. She denies any nausea or vomiting or abdominal pain. Patient reports no fever or chills. - Related Data Home Medications Medication Instructions Recorded Confirmed levETIRAcetam [Keppra] 500 mg PO BID 06/02/16 04/03/17 Folic Acid 1 mg PO HS 08/28/16 04/03/17 Mirena Iud 1 implant VAGINAL ONCE 03/02/17 04/03/17 Previous Rx's Medication Instructions Recorded Doxycycline [Vibramycin] 100 mg PO Q12HR #14 capsule 04/03/17 Allergies Allergy/AdvReac Type Severity Reaction Status Date / Time Sulfa (Sulfonamide Allergy Rash/Hives Verified 04/03/17 21:26 Antibiotics) NUTS Allergy Anaphylaxis Uncoded 04/03/17 20:52 Review of Systems ROS Statement: Those systems with pertinent positive or pertinent negative responses have been documented in the HPI. ROS Other: All systems not noted in ROS Statement are negative. Past Medical History Past Medical History: Seizure Disorder Additional Past Medical History / Comment(s): cerebral palsy, 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 barre in 2011 History of Any Multi-Drug Resistant Organisms: None Reported Past Surgical History: No Surgical Hx Reported Past Anesthesia/Blood Transfusion Reactions: No Reported Reaction Additional Past Anesthesia/Blood Transfusion Reaction / Comment(s): FATHER- TAKES LONGER TO WAKE UP WITH ANESTHESIA" Past Psychological History: Anxiety, Bipolar Smoking Status: Never smoker Past Alcohol Use History: None Reported Past Drug Use History: None Reported - Past Family History Mother Family Medical History: No Reported History General Exam - General Exam Comments Initial Comments: 21-year-old female. No acute distress. Limitations: no limitations General appearance: alert, in no apparent distress Head exam: Present: atraumatic, normocephalic, normal inspection Eye exam: Present: normal appearance, PERRL, EOMI. Absent: scleral icterus, conjunctival injection, periorbital swelling ENT exam: Present: normal exam, mucous membranes moist Neck exam: Present: normal inspection. Absent: tenderness, meningismus, lymphadenopathy Respiratory exam: Present: normal lung sounds bilaterally. Absent: respiratory distress, wheezes, rales, rhonchi, stridor Cardiovascular Exam: Present: regular rate, normal rhythm, normal heart sounds. Absent: systolic murmur, diastolic murmur, rubs, gallop, clicks GI/Abdominal exam: Present: soft, normal bowel sounds. Absent: distended, tenderness, guarding, rebound, rigid External exam: Present: normal external exam Speculum exam: Present: normal speculum exam, cervical discharge (Patient does have a significant amount of cervical discharge. IUD appears to be intact, able to the strings.) By manual exam: Present: cervical motion tenderness. Absent: normal by manual exam Extremities exam: Present: normal inspection, full ROM, normal capillary refill. Absent: tenderness, pedal edema, joint swelling, calf tenderness Back exam: Present: normal inspection Neurological exam: Present: alert, oriented X3, CN II-XII intact Psychiatric exam: Present: normal affect, normal mood Skin exam: Present: warm, dry, intact, normal color. Absent: rash Course Vital Signs 04/03/17 04/03/17 04/03/17 20:49 22:21 23:53 Temperature 98.6 F 98.0 F Pulse Rate 71 67 73 Respiratory 18 16 18 Rate Blood Pressure 132/60 138/65 124/80 O2 Sat by Pulse 96 97 100 Oximetry Medical Decision Making - Medical Decision Making This is a 21-year-old female presenting to emergency Department chief complaint of pelvic pain. Patient reports that she has an IUD. She reports that it was placed 3 months ago by her bone char kiln tender. Patient reports that yesterday when she bent over she felt a sharp sudden pain and is concerned that she may have torn or broke her IUD. Patient did have evidence of significant carotid vaginal discharge on pelvic exam. Her IUD does appear to be intact and able to visualize the strings. She did receive a transvaginal ultrasound. Ultrasound showed intact and in place IUD. Patient's rapid Trichomonas test to come back positive. Therefore patient was treated with Rocephin, Flagyl, and will be discharged with doxycycline for the next week. Advised patient of her results. Advised against sexual intercourse for the next 2 weeks. Patient agrees. Patient understands treatment plan will comply. Return parameters were discussed. - Lab Data Lab Results 04/03/17 04/03/17 04/03/17 Range/Units 21:45 21:45 22:15 Urine Color Yellow Urine Appearance Clear (Clear) Urine pH 6.0 (5.0-8.0) Ur Specific [place] 1.022 (1.001-1.035) Urine Protein Trace H (Negative) Urine Glucose (UA) Negative (Negative) Urine Ketones Negative (Negative) Urine Blood Moderate H (Negative) Urine Nitrite Negative (Negative) Urine Bilirubin Negative (Negative) Urine Urobilinogen <2.0 (<2.0) mg/dL Ur Leukocyte Esterase Large H (Negative) Urine RBC 25 H (0-5) /hpf Urine WBC 23 H (0-5) /hpf Ur Squamous Epith Cells 4 (0-4) /hpf Urine Mucus Rare H (None) /hpf Urine HCG, Qual Not Detected (Not Detectd) C.trachomatis RNA Not detected (Not detected) Chlamydia/GC DNA Source Endocervix N.gonorrhoeae RNA Not detected (Not detected) Trichomonas Ag (Rapid) (Negative) 04/03/17 Range/Units 22:15 Urine Color Urine Appearance (Clear) Urine pH (5.0-8.0) Ur Specific [place] (1.001-1.035) Urine Protein (Negative) Urine Glucose (UA) (Negative) Urine Ketones (Negative) Urine Blood (Negative) Urine Nitrite (Negative) Urine Bilirubin (Negative) Urine Urobilinogen (<2.0) mg/dL Ur Leukocyte Esterase (Negative) Urine RBC (0-5) /hpf Urine WBC (0-5) /hpf Ur Squamous Epith Cells (0-4) /hpf Urine Mucus (None) /hpf Urine HCG, Qual (Not Detectd) C.trachomatis RNA (Not detected) Chlamydia/GC DNA Source N.gonorrhoeae RNA (Not detected) Trichomonas Ag (Rapid) Positive H (Negative) - Radiology Data Radiology results: report reviewed Bilateral ovaries are within normal limits. No evidence of ovarian torsion. IUD in the region of the lower uterine segment and upper cervical region. No free fluid in pelvis. Disposition Clinical Impression: PID (pelvic inflammatory disease), Cervicitis Disposition: HOME SELF-CARE Condition: Good Instructions: Pelvic Inflammatory Disease (ED) Additional Instructions: Follow-up with her primary care provider. Completely anabiotic prescription. Return to the emergency department if any alarming signs or symptoms occur. Prescriptions: Doxycycline [Vibramycin] 100 mg PO Q12HR #14 capsule Referrals: Lawrence Bueno MD [Primary Care Provider] - 1-2 days Time of Disposition: 23:19
[2017-04-03] MEDS: metroNIDAZOLE 500 MG TAB PO STA (23:52)
[2017-04-03 23:54] VITALS: BP 124/80; PULSE 73; RESP 18
[2017-04-03] MEDS: cefTRIAXone 250 MG VIAL IM STA (23:55)
== END 2017-04-04 | disposition home or self-care (01) ==
LOC: EC 20:43
DX: N72 Inflammatory disease of cervix uteri (principal); N73.9 Female pelvic inflammatory disease, unspecified; G40.909 Epilepsy, unspecified, not intractable, without status epilepticus; Z79.899 Other long term (current) drug therapy; Z88.2 Allergy status to sulfonamides; Z91.018 Allergy to other foods; Z97.5 Presence of (intrauterine) contraceptive device
CPT/HCPCS: 87591; 87491; 81001; 81025; 87808; 87070; 93975; 76830; 99284; 96372; J0696; 87205

== ENCOUNTER 2017-05-06 13:34 | Emergency (ER) | payer OTHER ==
[2017-05-06 13:40] VITALS: RESP 16
[2017-05-06] MEDS ORDERED: SODIUM CHLORIDE 0.9% 1,000 ML IV STA (13:51)
[2017-05-06] MEDS ORDERED: ONDANSETRON 4 MG/2 ML VIAL IVP STA (13:51)
--- NOTE | 2017-05-06 14:04 | ED ---
Abdominal Pain HPI - General Chief Complaint: Abdominal Pain Stated Complaint: abdominal pain/vomiting Time Seen by Provider: 05/06/17 13:44 Source: patient, RN notes reviewed Mode of arrival: ambulatory Limitations: no limitations - History of Present Illness Initial Comments: 21-year-old female presents emergency Department chief complaint of abdominal discomfort. Patient states that she has had abdominal discomfort last few days. Patient had intermittent nausea vomiting. Patient states that she's mildly nauseated this time no fevers no chills. Patient states currently control and due for her menstrual cycle. She is concerned that she may have had . Patient denies any vaginal bleeding or vaginal discharge. No prior abdominal surgeries. Patient denies any chest pain or shortness breath patient doesn't dysuria or hematuria. No diarrhea no constipation. - Related Data Home Medications Medication Instructions Recorded Confirmed levETIRAcetam [Keppra] 500 mg PO BID 06/02/16 05/06/17 Folic Acid 1 mg PO DAILY 08/28/16 05/06/17 Mirena Iud 1 implant VAGINAL DIRECTED 03/02/17 05/06/17 Previous Rx's Medication Instructions Recorded Ondansetron Odt [Zofran Odt] 4 mg PO Q8HR PRN #10 tab 05/06/17 Allergies Allergy/AdvReac Type Severity Reaction Status Date / Time Sulfa (Sulfonamide Allergy Rash/Hives Verified 05/06/17 14:01 Antibiotics) NUTS Allergy Anaphylaxis Uncoded 05/06/17 13:37 Review of Systems ROS Statement: Those systems with pertinent positive or pertinent negative responses have been documented in the HPI. ROS Other: All systems not noted in ROS Statement are negative. Past Medical History Past Medical History: Seizure Disorder Additional Past Medical History / Comment(s): cerebral palsy, 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 barre in 2010 History of Any Multi-Drug Resistant Organisms: None Reported Past Surgical History: No Surgical Hx Reported Past Anesthesia/Blood Transfusion Reactions: No Reported Reaction Additional Past Anesthesia/Blood Transfusion Reaction / Comment(s): FATHER- TAKES LONGER TO WAKE UP WITH ANESTHESIA" Past Psychological History: Anxiety, Bipolar Smoking Status: Never smoker Past Alcohol Use History: None Reported Past Drug Use History: None Reported - Past Family History Mother Family Medical History: No Reported History General Exam Limitations: no limitations General appearance: alert, in no apparent distress Respiratory exam: Present: normal lung sounds bilaterally. Absent: respiratory distress, wheezes, rales, rhonchi, stridor Cardiovascular Exam: Present: regular rate, normal rhythm, normal heart sounds. Absent: systolic murmur, diastolic murmur, rubs, gallop, clicks GI/Abdominal exam: Present: soft, tenderness (mild diffuse), normal bowel sounds. Absent: distended, guarding, rebound, rigid Back exam: Absent: CVA tenderness (R), CVA tenderness (L) Skin exam: Present: warm, dry, intact, normal color. Absent: rash Course Vital Signs 05/06/17 13:37 Temperature 97.7 F Pulse Rate 82 Respiratory 16 Rate Blood Pressure 151/78 O2 Sat by Pulse 98 Oximetry Medical Decision Making - Medical Decision Making 21-year-old female presented emergency for nausea and abdominal discomfort. Patient's labwork unremarkable she does feel improved after IV fluids and Zofran. Patient we discharged at this time with Zofran. - Lab Data Result diagrams: 05/06/17 14:53 05/06/17 14:53 Lab Results 05/06/17 05/06/17 05/06/17 Range/Units 13:49 13:50 14:53 WBC (3.8-10.6) k/uL RBC (3.80-5.40) m/uL Hgb (11.4-16.0) gm/dL Hct (34.0-46.0) % MCV (80.0-100.0) fL MCH (25.0-35.0) pg MCHC (31.0-37.0) g/dL RDW (11.5-15.5) % Plt Count (150-450) k/uL Neutrophils % % Lymphocytes % % Monocytes % % Eosinophils % % Basophils % % Neutrophils # (1.3-7.7) k/uL Lymphocytes # (1.0-4.8) k/uL Monocytes # (0-1.0) k/uL Eosinophils # (0-0.7) k/uL Basophils # (0-0.2) k/uL Sodium 142 (137-145) mmol/L Potassium 4.2 (3.5-5.1) mmol/L Chloride 105 (98-107) mmol/L Carbon Dioxide 25 (22-30) mmol/L Anion Gap 12 mmol/L BUN 14 (7-17) mg/dL Creatinine 0.68 (0.52-1.04) mg/dL Est GFR (MDRD) Af Amer >60 (>60 ml/min/1.73 sqM) Est GFR (MDRD) Non-Af >60 (>60 ml/min/1.73 sqM) Glucose 76 (74-99) mg/dL Calcium 8.9 (8.4-10.2) mg/dL Total Bilirubin 0.7 (0.2-1.3) mg/dL AST 29 (14-36) U/L ALT 30 (9-52) U/L Alkaline Phosphatase 100 (38-126) U/L Total Protein 7.1 (6.3-8.2) g/dL Albumin 4.3 (3.5-5.0) g/dL Amylase 43 (30-110) U/L Lipase 57 (23-300) U/L Urine Color Yellow Urine Appearance Clear (Clear) Urine pH 6.5 (5.0-8.0) Ur Specific [place] 1.018 (1.001-1.035) Urine Protein Negative (Negative) Urine Glucose (UA) Negative (Negative) Urine Ketones Negative (Negative) Urine Blood Moderate H (Negative) Urine Nitrite Negative (Negative) Urine Bilirubin Negative (Negative) Urine Urobilinogen <2.0 (<2.0) mg/dL Ur Leukocyte Esterase Moderate H (Negative) Urine RBC <1 (0-5) /hpf Urine WBC 2 (0-5) /hpf Ur Squamous Epith Cells 5 H (0-4) /hpf Urine HCG, Qual Not Detected (Not Detectd) 05/06/17 Range/Units 14:53 WBC 5.7 (3.8-10.6) k/uL RBC 4.47 (3.80-5.40) m/uL Hgb 12.4 (11.4-16.0) gm/dL Hct 38.3 (34.0-46.0) % MCV 85.9 (80.0-100.0) fL MCH 27.8 (25.0-35.0) pg MCHC 32.4 (31.0-37.0) g/dL RDW 15.4 (11.5-15.5) % Plt Count 206 (150-450) k/uL Neutrophils % 68 % Lymphocytes % 22 % Monocytes % 6 % Eosinophils % 2 % Basophils % 0 % Neutrophils # 3.9 (1.3-7.7) k/uL Lymphocytes # 1.3 (1.0-4.8) k/uL Monocytes # 0.4 (0-1.0) k/uL Eosinophils # 0.1 (0-0.7) k/uL Basophils # 0.0 (0-0.2) k/uL Sodium (137-145) mmol/L Potassium (3.5-5.1) mmol/L Chloride (98-107) mmol/L Carbon Dioxide (22-30) mmol/L Anion Gap mmol/L BUN (7-17) mg/dL Creatinine (0.52-1.04) mg/dL Est GFR (MDRD) Af Amer (>60 ml/min/1.73 sqM) Est GFR (MDRD) Non-Af (>60 ml/min/1.73 sqM) Glucose (74-99) mg/dL Calcium (8.4-10.2) mg/dL Total Bilirubin (0.2-1.3) mg/dL AST (14-36) U/L ALT (9-52) U/L Alkaline Phosphatase (38-126) U/L Total Protein (6.3-8.2) g/dL Albumin (3.5-5.0) g/dL Amylase (30-110) U/L Lipase (23-300) U/L Urine Color Urine Appearance (Clear) Urine pH (5.0-8.0) Ur Specific [place] (1.001-1.035) Urine Protein (Negative) Urine Glucose (UA) (Negative) Urine Ketones (Negative) Urine Blood (Negative) Urine Nitrite (Negative) Urine Bilirubin (Negative) Urine Urobilinogen (<2.0) mg/dL Ur Leukocyte Esterase (Negative) Urine RBC (0-5) /hpf Urine WBC (0-5) /hpf Ur Squamous Epith Cells (0-4) /hpf Urine HCG, Qual (Not Detectd) Disposition Clinical Impression: Nausea & vomiting Disposition: HOME SELF-CARE Condition: Stable Instructions: Acute Nausea and Vomiting (ED) Additional Instructions: Please return to the Emergency Department if symptoms worsen or any other concerns. Prescriptions: Ondansetron Odt [Zofran Odt] 4 mg PO Q8HR PRN #10 tab PRN Reason: Nausea Referrals: Alsayegh,Roofan, MD [Primary Care Provider] - 1-2 days Time of Disposition: 16:20
[2017-05-06 14:52] LABS: Appearance,Urine Clear (Clear); Bilirubin,Urine Negative (Negative); Glucose,Urine (UA) Negative (Negative); Ketones,Urine Negative (Negative); Leukocyte Esterase,Urine Moderate (Negative); Nitrite,Urine Negative (Negative); PH, Urine 6.5 (5.0-8.0); Particle Count 4583; Protein,Urine Negative (Negative); RBC,Urine <1 /hpf (0-5); Specific Gravity,Urine 1.018 (1.001-1.035); Squamous Epithelial Cell,Urine 5 /hpf (0-4); UA Billing (MACRO vs. MICRO) MICRO; Urobilinogen,Urine <2.0 mg/dL (<2.0); WBC,Urine 2 /hpf (0-5)
[2017-05-06 15:05] LABS: Basophils % (A) 0 %; CH 27.3; CHCM 31.9; Eosinophils # (A) 0.1 k/uL (0-0.7); Eosinophils % (A) 2 %; HCT 38.3 % (34.0-46.0); HDW 2.44; HGB 12.4 gm/dL (11.4-16.0); Luc # (Auto) 0.08; Luc % (Auto) 1; Lymphocytes # (A) 1.3 k/uL (1.0-4.8); Lymphocytes % (A) 22 %; MCH 27.8 pg (25.0-35.0); MCHC 32.4 g/dL (31.0-37.0); MCV 85.9 fL (80.0-100.0); Mean Platelet Volume 8.7; Monocytes # (A) 0.4 k/uL (0-1.0); Monocytes % (A) 6 %; Neutrophils # (A) 3.9 k/uL (1.3-7.7); Neutrophils % (A) 68 %; RBC 4.47 m/uL (3.80-5.40); RDW 15.4 % (11.5-15.5); WBC 5.7 k/uL (3.8-10.6); WBC (Perox) 5.76
[2017-05-06 15:12] LABS: ALT 30 U/L (9-52); AST 29 U/L (14-36); Alkaline Phosphatase 100 U/L (38-126); Amylase 43 U/L (30-110); Anion Gap 12 mmol/L; Blood Urea Nitrogen 14 mg/dL (7-17); Calcium 8.9 mg/dL (8.4-10.2); Carbon Dioxide 25 mmol/L (22-30); Chloride 105 mmol/L (98-107); Glucose 76 mg/dL (74-99); Non-African American GFR(MDRD) >60 (>60 ml/min/1.73 sqM); Potassium 4.2 mmol/L (3.5-5.1); Sodium 142 mmol/L (137-145); Total Bilirubin 0.7 mg/dL (0.2-1.3); Total Protein 7.1 g/dL (6.3-8.2)
[2017-05-06 16:30] VITALS: BP 120/62; PULSE 64; TEMP 97.9
== END 2017-05-06 16:37 | disposition home or self-care (01) ==
LOC: EC 13:34
DX: R11.2 Nausea with vomiting, unspecified (principal); R10.817 Generalized abdominal tenderness; G40.909 Epilepsy, unspecified, not intractable, without status epilepticus; Z79.899 Other long term (current) drug therapy; Z88.2 Allergy status to sulfonamides; Z91.018 Allergy to other foods; Z97.5 Presence of (intrauterine) contraceptive device
CPT/HCPCS: 36415; 80053; 82150; 83690; 85025; 81001; 81025; 99284; 96374; 96361 ×2; J2405

== ENCOUNTER 2017-07-11 23:23 | Emergency (ER) | payer OTHER ==
[2017-07-11 23:29] VITALS: BP 117/75; PULSE 74; RESP 20; TEMP 98
[2017-07-11] MEDS ORDERED: SODIUM CHLORIDE 0.9% 500 ML IV STA (23:44)
[2017-07-11] MEDS ORDERED: ONDANSETRON 4 MG/2 ML VIAL IVP STA (23:44)
--- NOTE | 2017-07-11 23:46 | ED ---
General Adult HPI - General Chief complaint: Abdominal Pain Stated complaint: Abd Pain Time Seen by Provider: 07/11/17 23:25 Source: patient, RN notes reviewed Mode of arrival: ambulatory Limitations: no limitations - History of Present Illness Initial comments: Is a 21-year-old female presents emergency Department complaining of abdominal pain for a week. Patient states she's able to eat and drink without problem. Patient states over that week occasionally she has had to vomit usually no more than once a day and has been days if she has not vomited all. Patient denies any diarrhea. Patient denies fever chills. Patient denies abdominal surgeries. Patient states she has no dysuria hematuria urinary frequency. Patient states she doesn't believe she is because she is on control. Patient denies any vaginal bleeding or discharge. Patient denies any back pain. Patient denies being around anyone else with similar symptoms. Patient denies any chest pain difficult breathing shortness of breath. When I went in the room to get history from the patient the patient was sitting in bed comfortably texting someone. - Related Data Home Medications Medication Instructions Recorded Confirmed levETIRAcetam [Keppra] 500 mg PO BID 06/02/16 05/06/17 Folic Acid 1 mg PO DAILY 08/28/16 05/06/17 Mirena Iud 1 implant VAGINAL DIRECTED 03/02/17 05/06/17 Previous Rx's Medication Instructions Recorded Ondansetron Odt [Zofran Odt] 4 mg PO Q8HR PRN #10 tab 05/06/17 Allergies Allergy/AdvReac Type Severity Reaction Status Date / Time Sulfa (Sulfonamide Allergy Rash/Hives Verified 07/11/17 23:30 Antibiotics) NUTS Allergy Anaphylaxis Uncoded 07/11/17 23:30 Review of Systems ROS Statement: Those systems with pertinent positive or pertinent negative responses have been documented in the HPI. ROS Other: All systems not noted in ROS Statement are negative. Past Medical History Past Medical History: Seizure Disorder Additional Past Medical History / Comment(s): cerebral palsy, 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 barre in 2010 History of Any Multi-Drug Resistant Organisms: None Reported Past Surgical History: No Surgical Hx Reported Past Anesthesia/Blood Transfusion Reactions: No Reported Reaction Additional Past Anesthesia/Blood Transfusion Reaction / Comment(s): FATHER- TAKES LONGER TO WAKE UP WITH ANESTHESIA" Past Psychological History: Anxiety, Bipolar Smoking Status: Never smoker Past Alcohol Use History: None Reported Past Drug Use History: None Reported - Past Family History Mother Family Medical History: No Reported History General Exam - General Exam Comments Initial Comments: GENERAL: Patient is well-developed and well-nourished. Patient is nontoxic and well- hydrated and is in no acute distress. ENT: Neck is soft and supple. No significant lymphadenopathy is noted. Oropharynx is clear. Moist mucous membranes. Neck has full range of motion without eliciting any pain. EYES: The sclera were anicteric and conjunctiva were pink and moist. Extraocular movements were intact and pupils were equal round and reactive to light. Eyelids were unremarkable. PULMONARY: Unlabored respirations. Good breath sounds bilaterally. No audible rales rhonchi or wheezing was noted. CARDIOVASCULAR: There is a regular rate and rhythm without any murmurs gallops or rubs. ABDOMEN: Soft and nontender with normal bowel sounds. No palpable organomegaly was noted. There is no palpable pulsatile mass. SKIN: Skin is clear with no lesions or rashes and otherwise unremarkable. NEUROLOGIC: Patient is alert and oriented x3. Cranial nerves II through XII are grossly intact. Motor and sensory are also intact. Normal speech, volume and content. Symmetrical smile. MUSCULOSKELETAL: Normal extremities with adequate strength and full range of motion. LYMPHATICS: No significant lymphadenopathy is noted PSYCHIATRIC: Normal psychiatric evaluation. Normal interpersonal interactions appears functionally intact in deals appropriately with others. No signs of depression. No signs of anxiety. Limitations: no limitations Course Vital Signs 07/11/17 23:24 Temperature 98.0 F Pulse Rate 74 Respiratory 20 Rate Blood Pressure 117/75 O2 Sat by Pulse 95 Oximetry Medical Decision Making - Lab Data Result diagrams: 07/11/17 23:56 07/11/17 23:56 Lab Results 07/11/17 07/11/17 07/11/17 Range/Units 23:56 23:56 23:56 WBC 5.7 (3.8-10.6) k/uL RBC 4.91 (3.80-5.40) m/uL Hgb 14.0 (11.4-16.0) gm/dL Hct 43.3 (34.0-46.0) % MCV 88.2 (80.0-100.0) fL MCH 28.6 (25.0-35.0) pg MCHC 32.4 (31.0-37.0) g/dL RDW 16.1 H (11.5-15.5) % Plt Count 221 (150-450) k/uL Neutrophils % 59 % Lymphocytes % 31 % Monocytes % 5 % Eosinophils % 2 % Basophils % 1 % Neutrophils # 3.4 (1.3-7.7) k/uL Lymphocytes # 1.8 (1.0-4.8) k/uL Monocytes # 0.3 (0-1.0) k/uL Eosinophils # 0.1 (0-0.7) k/uL Basophils # 0.0 (0-0.2) k/uL Anisocytosis Slight Sodium 140 (137-145) mmol/L Potassium 4.1 (3.5-5.1) mmol/L Chloride 106 (98-107) mmol/L Carbon Dioxide 25 (22-30) mmol/L Anion Gap 9 mmol/L BUN 18 H (7-17) mg/dL Creatinine 0.70 (0.52-1.04) mg/dL Est GFR (MDRD) Af Amer >60 (>60 ml/min/1.73 sqM) Est GFR (MDRD) Non-Af >60 (>60 ml/min/1.73 sqM) Glucose 100 H (74-99) mg/dL Calcium 9.2 (8.4-10.2) mg/dL Total Bilirubin 0.2 (0.2-1.3) mg/dL AST 16 (14-36) U/L ALT 29 (9-52) U/L Alkaline Phosphatase 116 (38-126) U/L Total Protein 6.7 (6.3-8.2) g/dL Albumin 4.0 (3.5-5.0) g/dL Amylase 45 (30-110) U/L Lipase 75 (23-300) U/L Urine Color Urine Appearance (Clear) Urine pH (5.0-8.0) Ur Specific [place] (1.001-1.035) Urine Protein (Negative) Urine Glucose (UA) (Negative) Urine Ketones (Negative) Urine Blood (Negative) Urine Nitrite (Negative) Urine Bilirubin (Negative) Urine Urobilinogen (<2.0) mg/dL Ur Leukocyte Esterase (Negative) Urine RBC (0-5) /hpf Urine WBC (0-5) /hpf Ur Squamous Epith Cells (0-4) /hpf Urine HCG, Qual Not Detected (Not Detectd) 07/11/17 Range/Units 23:56 WBC (3.8-10.6) k/uL RBC (3.80-5.40) m/uL Hgb (11.4-16.0) gm/dL Hct (34.0-46.0) % MCV (80.0-100.0) fL MCH (25.0-35.0) pg MCHC (31.0-37.0) g/dL RDW (11.5-15.5) % Plt Count (150-450) k/uL Neutrophils % % Lymphocytes % % Monocytes % % Eosinophils % % Basophils % % Neutrophils # (1.3-7.7) k/uL Lymphocytes # (1.0-4.8) k/uL Monocytes # (0-1.0) k/uL Eosinophils # (0-0.7) k/uL Basophils # (0-0.2) k/uL Anisocytosis Sodium (137-145) mmol/L Potassium (3.5-5.1) mmol/L Chloride (98-107) mmol/L Carbon Dioxide (22-30) mmol/L Anion Gap mmol/L BUN (7-17) mg/dL Creatinine (0.52-1.04) mg/dL Est GFR (MDRD) Af Amer (>60 ml/min/1.73 sqM) Est GFR (MDRD) Non-Af (>60 ml/min/1.73 sqM) Glucose (74-99) mg/dL Calcium (8.4-10.2) mg/dL Total Bilirubin (0.2-1.3) mg/dL AST (14-36) U/L ALT (9-52) U/L Alkaline Phosphatase (38-126) U/L Total Protein (6.3-8.2) g/dL Albumin (3.5-5.0) g/dL Amylase (30-110) U/L Lipase (23-300) U/L Urine Color Yellow Urine Appearance Clear (Clear) Urine pH 6.0 (5.0-8.0) Ur Specific [place] 1.017 (1.001-1.035) Urine Protein Negative (Negative) Urine Glucose (UA) Negative (Negative) Urine Ketones Negative (Negative) Urine Blood Negative (Negative) Urine Nitrite Negative (Negative) Urine Bilirubin Negative (Negative) Urine Urobilinogen <2.0 (<2.0) mg/dL Ur Leukocyte Esterase Moderate H (Negative) Urine RBC 1 (0-5) /hpf Urine WBC 4 (0-5) /hpf Ur Squamous Epith Cells 5 H (0-4) /hpf Urine HCG, Qual (Not Detectd) Disposition Clinical Impression: Abdominal pain Disposition: HOME SELF-CARE Instructions: Abdominal Pain (ED) Referrals: Lawrence Bueno MD [Primary Care Provider] - 1-2 days Time of Disposition: 01:16
[2017-07-12 00:26] LABS: Anisocytosis Slight; Basophils % (A) 1 %; CH 28.9; CHCM 32.8; Eosinophils # (A) 0.1 k/uL (0-0.7); Eosinophils % (A) 2 %; HCT 43.3 % (34.0-46.0); HDW 2.39; Luc % (Auto) 2; Lymphocytes # (A) 1.8 k/uL (1.0-4.8); Lymphocytes % (A) 31 %; MCH 28.6 pg (25.0-35.0); MCHC 32.4 g/dL (31.0-37.0); MCV 88.2 fL (80.0-100.0); Mean Platelet Volume 8.7; Monocytes # (A) 0.3 k/uL (0-1.0); Monocytes % (A) 5 %; Neutrophils # (A) 3.4 k/uL (1.3-7.7); Neutrophils % (A) 59 %; RBC 4.91 m/uL (3.80-5.40); RDW 16.1 % (11.5-15.5); WBC 5.7 k/uL (3.8-10.6)
[2017-07-12 00:27] LABS: Appearance,Urine Clear (Clear); Bilirubin,Urine Negative (Negative); Glucose,Urine (UA) Negative (Negative); Ketones,Urine Negative (Negative); Leukocyte Esterase,Urine Moderate (Negative); Nitrite,Urine Negative (Negative); Particle Count 2261; Protein,Urine Negative (Negative); RBC,Urine 1 /hpf (0-5); Specific Gravity,Urine 1.017 (1.001-1.035); Squamous Epithelial Cell,Urine 5 /hpf (0-4); UA Billing (MACRO vs. MICRO) MICRO; Urobilinogen,Urine <2.0 mg/dL (<2.0); WBC,Urine 4 /hpf (0-5)
[2017-07-12 00:37] LABS: ALT 29 U/L (9-52); AST 16 U/L (14-36); Alkaline Phosphatase 116 U/L (38-126); Amylase 45 U/L (30-110); Anion Gap 9 mmol/L; Blood Urea Nitrogen 18 mg/dL (7-17); Calcium 9.2 mg/dL (8.4-10.2); Carbon Dioxide 25 mmol/L (22-30); Chloride 106 mmol/L (98-107); Glucose 100 mg/dL (74-99); Non-African American GFR(MDRD) >60 (>60 ml/min/1.73 sqM); Potassium 4.1 mmol/L (3.5-5.1); Sodium 140 mmol/L (137-145); Total Bilirubin 0.2 mg/dL (0.2-1.3); Total Protein 6.7 g/dL (6.3-8.2)
== END 2017-07-12 01:59 | disposition home or self-care (01) ==
LOC: EC 23:23
DX: R10.9 Unspecified abdominal pain (principal); G40.909 Epilepsy, unspecified, not intractable, without status epilepticus; Z97.5 Presence of (intrauterine) contraceptive device; Z88.2 Allergy status to sulfonamides; Z91.010 Allergy to peanuts; Z79.899 Other long term (current) drug therapy
CPT/HCPCS: 99284; 96374; 96361 ×2; 36415; 80053; 82150; 83690; 85025; 81001; 81025; J2405

== ENCOUNTER 2017-07-29 15:52 | Emergency (ER) | payer OTHER ==
[2017-07-29] MEDS ORDERED: PANTOPRAZOLE 40 MG/10 ML VIAL IVP STA (16:23)
[2017-07-29 17:02] LABS: Basophils % (A) 0 %; CHCM 31.5; Eosinophils # (A) 0.1 k/uL (0-0.7); Eosinophils % (A) 2 %; HCT 41.2 % (34.0-46.0); HGB 13.2 gm/dL (11.4-16.0); Luc # (Auto) 0.12; Luc % (Auto) 2; Lymphocytes # (A) 1.1 k/uL (1.0-4.8); Lymphocytes % (A) 18 %; MCH 28.7 pg (25.0-35.0); MCHC 32.2 g/dL (31.0-37.0); MCV 89.2 fL (80.0-100.0); Mean Platelet Volume 7.9; Monocytes # (A) 0.4 k/uL (0-1.0); Monocytes % (A) 7 %; Neutrophils # (A) 4.1 k/uL (1.3-7.7); Neutrophils % (A) 70 %; RBC 4.62 m/uL (3.80-5.40); RDW 14.6 % (11.5-15.5); WBC 5.9 k/uL (3.8-10.6); WBC (Perox) 5.64
[2017-07-29 17:06] LABS: Appearance,Urine Cloudy (Clear); Bacteria,Urine Rare /hpf; Bilirubin,Urine Negative (Negative); Glucose,Urine (UA) Negative (Negative); Ketones,Urine Negative (Negative); Leukocyte Esterase,Urine Moderate (Negative); Mucus,Urine Occasional /hpf; Nitrite,Urine Positive (Negative); Particle Count 6764; Protein,Urine 1+ (Negative); RBC,Urine 48 /hpf (0-5); Specific Gravity,Urine 1.022 (1.001-1.035); Squamous Epithelial Cell,Urine 13 /hpf (0-4); UA Billing (MACRO vs. MICRO) MICRO; Urobilinogen,Urine <2.0 mg/dL (<2.0); WBC,Urine 43 /hpf (0-5)
--- NOTE | 2017-07-29 17:07 | ED ---
General Adult HPI - General Chief complaint: Abdominal Pain Stated complaint: blood in stool Time Seen by Provider: 07/29/17 16:09 Source: patient, RN notes reviewed Mode of arrival: ambulatory Limitations: no limitations - History of Present Illness Initial comments: Patient 21-year-old female who presents emergency room today with a chief complaint of blood in her stool that she noticed yesterday. She just met that she's had this once in the past proximate 2 years ago. She states she did see a GI specialist at this time. States she never had a colonoscopy. She does admit that it was a bright color in both the toilet and on the toilet paper. Patient states wasn't normal bowel movement. she does admit to some lower abdominal cramping pain at times and lower abdomen. She denies any other complaints or associated symptoms. Patient denies any recent fever, chills, shortness of breath, chest pain, back pain, nausea or vomiting, numbness or tingling, dysuria or hematuria, constipation or diarrhea, headaches or visual changes, or any other complaints. - Related Data Home Medications Medication Instructions Recorded Confirmed levETIRAcetam [Keppra] 500 mg PO BID 06/02/16 07/29/17 Folic Acid 1 mg PO DAILY 08/28/16 07/29/17 Previous Rx's Medication Instructions Recorded Nitrofurantoin Monohyd/M-Cryst 100 mg PO Q12HR #14 cap 07/29/17 [Macrobid] Omeprazole 20 mg PO DAILY #7 capsule. 07/29/17 Allergies Allergy/AdvReac Type Severity Reaction Status Date / Time Sulfa (Sulfonamide Allergy Rash/Hives Verified 07/29/17 16:12 Antibiotics) NUTS Allergy Anaphylaxis Uncoded 07/29/17 15:57 Review of Systems ROS Statement: Those systems with pertinent positive or pertinent negative responses have been documented in the HPI. ROS Other: All systems not noted in ROS Statement are negative. Past Medical History Past Medical History: Seizure Disorder Additional Past Medical History / Comment(s): cerebral palsy, 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 barre in 2010 History of Any Multi-Drug Resistant Organisms: None Reported Past Surgical History: No Surgical Hx Reported Past Anesthesia/Blood Transfusion Reactions: No Reported Reaction Additional Past Anesthesia/Blood Transfusion Reaction / Comment(s): FATHER- TAKES LONGER TO WAKE UP WITH ANESTHESIA" Past Psychological History: Anxiety, Bipolar Smoking Status: Never smoker Past Alcohol Use History: None Reported Past Drug Use History: None Reported - Past Family History Mother Family Medical History: No Reported History General Exam - General Exam Comments Initial Comments: General: The patient is awake and alert, in no distress, and does not appear acutely ill. Eye: Pupils are equal, round and reactive to light, extra-ocular movements are intact. No nystagmus. There is normal conjunctiva bilaterally. No signs of icterus. Ears, nose, mouth and throat: There are moist mucous membranes and no oral lesions. Neck: The neck is supple, there is no tenderness or JVD. Cardiovascular: There is a regular rate and rhythm. No murmur, rub or gallop is appreciated. Respiratory: Lungs are clear to auscultation, respirations are non-labored, breath sounds are equal. No wheezes, stridor, rales, or rhonchi. Gastrointestinal: present Bowel sounds. Soft on palpation. Patient does havemild tenderness lower abdomen on palpation both left and right lower quadrant. No rebound tenderness. No guarding. No CVA tenderness. Musculoskeletal: Normal ROM, no tenderness. Strength 5/5. Sensation intact. Pulses equal bilaterally 2+. Neurological: A&O x 3. CN II-XII intact, There are no obvious motor or sensory deficits. Coordination appears grossly intact. Speech is normal. Skin: Skin is warm and dry and no rashes or lesions are noted. Psychiatric: Cooperative, appropriate mood & affect, normal judgment. Limitations: no limitations Course Vital Signs 07/29/17 15:54 Temperature 97.9 F Pulse Rate 79 Respiratory 20 Rate Blood Pressure 125/80 O2 Sat by Pulse 99 Oximetry Medical Decision Making - Medical Decision Making Patient's labs been reviewed. Guaiac positive. Patient's urinalysis does show evidence for a urinary tract infection. Patient's states she's symptomatically no symptoms for UTI. Patient resting comfortably here in the emergency room. Abdomen soft nontender. Her vitals are stable. Patient will be discharged home to follow up with her GI specialist that she seemed past once for blood in her stool. She is advised to return to emergency room if there is any symptoms of lightheadedness or dizziness or increased runny bowel movements. Patient states understanding and is in agreement. She'll be also treated for urinary tract infection with antibiotics. Advised follow-up the GI specialist or family doctor over the next 1-2 days. She states understanding and is in agreement. - Lab Data Result diagrams: 07/29/17 16:45 07/29/17 16:45 Lab Results 07/29/17 07/29/17 07/29/17 Range/Units 16:45 16:45 16:45 WBC 5.9 (3.8-10.6) k/uL RBC 4.62 (3.80-5.40) m/uL Hgb 13.2 (11.4-16.0) gm/dL Hct 41.2 (34.0-46.0) % MCV 89.2 (80.0-100.0) fL MCH 28.7 (25.0-35.0) pg MCHC 32.2 (31.0-37.0) g/dL RDW 14.6 (11.5-15.5) % Plt Count 190 (150-450) k/uL Neutrophils % 70 % Lymphocytes % 18 % Monocytes % 7 % Eosinophils % 2 % Basophils % 0 % Neutrophils # 4.1 (1.3-7.7) k/uL Lymphocytes # 1.1 (1.0-4.8) k/uL Monocytes # 0.4 (0-1.0) k/uL Eosinophils # 0.1 (0-0.7) k/uL Basophils # 0.0 (0-0.2) k/uL Sodium 141 (137-145) mmol/L Potassium 4.1 (3.5-5.1) mmol/L Chloride 108 H (98-107) mmol/L Carbon Dioxide 23 (22-30) mmol/L Anion Gap 10 mmol/L BUN 13 (7-17) mg/dL Creatinine 0.74 (0.52-1.04) mg/dL Est GFR (MDRD) Af Amer >60 (>60 ml/min/1.73 sqM) Est GFR (MDRD) Non-Af >60 (>60 ml/min/1.73 sqM) Glucose 81 (74-99) mg/dL Calcium 8.9 (8.4-10.2) mg/dL Total Bilirubin 0.3 (0.2-1.3) mg/dL AST 24 (14-36) U/L ALT 34 (9-52) U/L Alkaline Phosphatase 99 (38-126) U/L Total Protein 7.0 (6.3-8.2) g/dL Albumin 4.1 (3.5-5.0) g/dL Urine Color Urine Appearance (Clear) Urine pH (5.0-8.0) Ur Specific [place] (1.001-1.035) Urine Protein (Negative) Urine Glucose (UA) (Negative) Urine Ketones (Negative) Urine Blood (Negative) Urine Nitrite (Negative) Urine Bilirubin (Negative) Urine Urobilinogen (<2.0) mg/dL Ur Leukocyte Esterase (Negative) Urine RBC (0-5) /hpf Urine WBC (0-5) /hpf Ur Squamous Epith Cells (0-4) /hpf Urine Bacteria (None) /hpf Urine Mucus (None) /hpf Urine HCG, Qual Not Detected (Not Detectd) Stool Occult Blood (Negative) 07/29/17 07/29/17 Range/Units 16:45 16:45 WBC (3.8-10.6) k/uL RBC (3.80-5.40) m/uL Hgb (11.4-16.0) gm/dL Hct (34.0-46.0) % MCV (80.0-100.0) fL MCH (25.0-35.0) pg MCHC (31.0-37.0) g/dL RDW (11.5-15.5) % Plt Count (150-450) k/uL Neutrophils % % Lymphocytes % % Monocytes % % Eosinophils % % Basophils % % Neutrophils # (1.3-7.7) k/uL Lymphocytes # (1.0-4.8) k/uL Monocytes # (0-1.0) k/uL Eosinophils # (0-0.7) k/uL Basophils # (0-0.2) k/uL Sodium (137-145) mmol/L Potassium (3.5-5.1) mmol/L Chloride (98-107) mmol/L Carbon Dioxide (22-30) mmol/L Anion Gap mmol/L BUN (7-17) mg/dL Creatinine (0.52-1.04) mg/dL Est GFR (MDRD) Af Amer (>60 ml/min/1.73 sqM) Est GFR (MDRD) Non-Af (>60 ml/min/1.73 sqM) Glucose (74-99) mg/dL Calcium (8.4-10.2) mg/dL Total Bilirubin (0.2-1.3) mg/dL AST (14-36) U/L ALT (9-52) U/L Alkaline Phosphatase (38-126) U/L Total Protein (6.3-8.2) g/dL Albumin (3.5-5.0) g/dL Urine Color Yellow Urine Appearance Cloudy H (Clear) Urine pH 6.0 (5.0-8.0) Ur Specific [place] 1.022 (1.001-1.035) Urine Protein 1+ H (Negative) Urine Glucose (UA) Negative (Negative) Urine Ketones Negative (Negative) Urine Blood Moderate H (Negative) Urine Nitrite Positive H (Negative) Urine Bilirubin Negative (Negative) Urine Urobilinogen <2.0 (<2.0) mg/dL Ur Leukocyte Esterase Moderate H (Negative) Urine RBC 48 H (0-5) /hpf Urine WBC 43 H (0-5) /hpf Ur Squamous Epith Cells 13 H (0-4) /hpf Urine Bacteria Rare H (None) /hpf Urine Mucus Occasional H (None) /hpf Urine HCG, Qual (Not Detectd) Stool Occult Blood Positive H (Negative) Disposition Clinical Impression: UTI (urinary tract infection), Blood in stool Disposition: HOME SELF-CARE Condition: Good Instructions: Urinary Tract Infection in Women (ED) Additional Instructions: Please use medication as discussed. Please follow-up with GI/family doctor in the next 2 days. Please return to emergency room if the symptoms increase or worsen or for any other concerns. Prescriptions: Nitrofurantoin Monohyd/M-Cryst [Macrobid] 100 mg PO Q12HR #14 cap Omeprazole 20 mg PO DAILY #7 capsule.dr Referrals: Lawrence Bueno MD [Primary Care Provider] - 1-2 days Warren Srivastava MD [STAFF PHYSICIAN] - 1-2 days Time of Disposition: 18:22
[2017-07-29 17:14] LABS: ALT 34 U/L (9-52); AST 24 U/L (14-36); Alkaline Phosphatase 99 U/L (38-126); Anion Gap 10 mmol/L; Blood Urea Nitrogen 13 mg/dL (7-17); Calcium 8.9 mg/dL (8.4-10.2); Carbon Dioxide 23 mmol/L (22-30); Chloride 108 mmol/L (98-107); Glucose 81 mg/dL (74-99); Non-African American GFR(MDRD) >60 (>60 ml/min/1.73 sqM); Potassium 4.1 mmol/L (3.5-5.1); Sodium 141 mmol/L (137-145); Total Bilirubin 0.3 mg/dL (0.2-1.3)
--- NOTE | 2017-07-29 18:20 | XR ---
EXAMINATION TYPE: XR KUB DATE OF EXAM: 07/29/2017 COMPARISON: 10/25/2015 HISTORY: Pain and bright red blood in stool TECHNIQUE: 2 upright views FINDINGS: No abnormal gas collections. Bowel gas pattern is normal. No evident soft tissue mass. No s keletal findings. Visualized lung bases and pleural spaces are negative. IMPRESSION: Negative examination.
[2017-07-29 18:54] VITALS: BP 136/82; PULSE 60; RESP 18; TEMP 98
== END 2017-07-29 18:54 | disposition home or self-care (01) ==
LOC: EC 15:52
DX: N39.0 Urinary tract infection, site not specified (principal); K92.1 Melena; R10.30 Lower abdominal pain, unspecified; G40.909 Epilepsy, unspecified, not intractable, without status epilepticus; Z79.899 Other long term (current) drug therapy; Z88.2 Allergy status to sulfonamides; Z91.018 Allergy to other foods
CPT/HCPCS: 99284 ×2; 96374 ×2; 36415; 80053; 85025; 82272; 81001; 81025; 74000; C9113

== ENCOUNTER 2017-09-20 13:45 | Observation (INO) | payer OTHER ==
--- NOTE | 2017-09-20 16:59 | ED ---
General Adult HPI - General Chief complaint: Extremity Injury, Lower Stated complaint: Leg Numbness Time Seen by Provider: 09/20/17 14:05 Source: patient, RN notes reviewed Mode of arrival: ambulatory Limitations: no limitations - History of Present Illness Initial comments: This is a 21-year-old female who presents emergency Department complaining of right lateral leg numbness and right leg weakness. Patient states it started at 4 AM this morning it is been ongoing all day. Patient thought maybe it would go away as the day went on but has not so she came to the emergency department. Patient denies any injury or trauma. Patient states she has a past medical history significant for cerebral palsy but has no symptoms from that normally. 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 - Related Data Home Medications Medication Instructions Recorded Confirmed levETIRAcetam [Keppra] 500 mg PO BID 06/02/16 09/20/17 Allergies Allergy/AdvReac Type Severity Reaction Status Date / Time Sulfa (Sulfonamide Allergy Rash/Hives Verified 09/20/17 17:07 Antibiotics) NUTS Allergy Anaphylaxis Uncoded 09/20/17 14:05 Review of Systems ROS Statement: Those systems with pertinent positive or pertinent negative responses have been documented in the HPI. ROS Other: All systems not noted in ROS Statement are negative. Past Medical History Past Medical History: Seizure Disorder Additional Past Medical History / Comment(s): cerebral palsy, 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 barre in 2010 History of Any Multi-Drug Resistant Organisms: None Reported Past Surgical History: No Surgical Hx Reported Past Anesthesia/Blood Transfusion Reactions: No Reported Reaction Additional Past Anesthesia/Blood Transfusion Reaction / Comment(s): FATHER- TAKES LONGER TO WAKE UP WITH ANESTHESIA" Past Psychological History: Anxiety, Bipolar Smoking Status: Never smoker Past Alcohol Use History: None Reported Past Drug Use History: None Reported - Past Family History Mother Family Medical History: No Reported History General Exam - General Exam Comments Initial Comments: GENERAL: Patient is well-developed and well-nourished. Patient is nontoxic and well- hydrated and is in mild distress. ENT: Neck is soft and supple. No significant lymphadenopathy is noted. Oropharynx is clear. Moist mucous membranes. Neck has full range of motion without eliciting any pain. EYES: The sclera were anicteric and conjunctiva were pink and moist. Extraocular movements were intact and pupils were equal round and reactive to light. Eyelids were unremarkable. PULMONARY: Unlabored respirations. Good breath sounds bilaterally. No audible rales rhonchi or wheezing was noted. CARDIOVASCULAR: There is a regular rate and rhythm without any murmurs gallops or rubs. ABDOMEN: Soft and nontender with normal bowel sounds. No palpable organomegaly was noted. There is no palpable pulsatile mass. SKIN: Skin is clear with no lesions or rashes and otherwise unremarkable. NEUROLOGIC: Patient is alert and oriented x3. Cranial nerves II through XII are grossly intact. Patient is unable to do any kind of dorsiflexion of the right foot and she will not lift her leg off the bed. Patient states sensation down the leg is there however much decreased MUSCULOSKELETAL: Normal extremities with adequate strength and full range of motion. No lower extremity swelling or edema. No calf tenderness. LYMPHATICS: No significant lymphadenopathy is noted PSYCHIATRIC: Normal psychiatric evaluation. Limitations: no limitations Course Vital Signs 09/20/17 09/20/17 09/20/17 14:02 16:55 18:56 Temperature 98.4 F Pulse Rate 62 73 77 Respiratory 18 16 17 Rate Blood Pressure 134/66 127/79 124/65 O2 Sat by Pulse 99 98 97 Oximetry Medical Decision Making - Medical Decision Making EKG shows normal sinus rhythm at 70 bpm NC interval is 154 QRS is 80 QT interval 412 QTC is 469 per patient's EKG shows no ST segment elevation or depression or T wave abnormalities are noted CT of the brain shows no acute abnormality - Lab Data Result diagrams: 09/20/17 17:14 09/20/17 17:14 Lab Results 09/20/17 09/20/17 09/20/17 Range/Units 17:14 17:14 18:00 WBC 5.3 (3.8-10.6) k/uL RBC 4.50 (3.80-5.40) m/uL Hgb 13.0 (11.4-16.0) gm/dL Hct 39.9 (34.0-46.0) % MCV 88.6 (80.0-100.0) fL MCH 28.8 (25.0-35.0) pg MCHC 32.5 (31.0-37.0) g/dL RDW 14.7 (11.5-15.5) % Plt Count 272 (150-450) k/uL Neutrophils % 59 % Lymphocytes % 31 % Monocytes % 5 % Eosinophils % 2 % Basophils % 1 % Neutrophils # 3.1 (1.3-7.7) k/uL Lymphocytes # 1.7 (1.0-4.8) k/uL Monocytes # 0.3 (0-1.0) k/uL Eosinophils # 0.1 (0-0.7) k/uL Basophils # 0.0 (0-0.2) k/uL Sodium 145 (137-145) mmol/L Potassium 3.7 (3.5-5.1) mmol/L Chloride 106 (98-107) mmol/L Carbon Dioxide 26 (22-30) mmol/L Anion Gap 13 mmol/L BUN 14 (7-17) mg/dL Creatinine 0.70 (0.52-1.04) mg/dL Est GFR (MDRD) Af Amer >60 (>60 ml/min/1.73 sqM) Est GFR (MDRD) Non-Af >60 (>60 ml/min/1.73 sqM) Glucose 84 (74-99) mg/dL Calcium 9.3 (8.4-10.2) mg/dL Total Bilirubin 0.4 (0.2-1.3) mg/dL AST 36 (14-36) U/L ALT 41 (9-52) U/L Alkaline Phosphatase 90 (38-126) U/L Total Protein 7.3 (6.3-8.2) g/dL Albumin 4.5 (3.5-5.0) g/dL Urine HCG, Qual Not Detected (Not Detectd) Disposition Clinical Impression: CVA (cerebral vascular accident) Disposition: ADMITTED IP TO THIS HOSP Referrals: Lawrence Bueno MD [Primary Care Provider] - 1-2 days Time of Disposition: 19:25
[2017-09-20 17:30] LABS: Basophils % (A) 1 %; Eosinophils # (A) 0.1 k/uL (0-0.7); Eosinophils % (A) 2 %; HCT 39.9 % (34.0-46.0); Lymphocytes # (A) 1.7 k/uL (1.0-4.8); Lymphocytes % (A) 31 %; MCH 28.8 pg (25.0-35.0); MCHC 32.5 g/dL (31.0-37.0); MCV 88.6 fL (80.0-100.0); Mean Platelet Volume 7.2; Monocytes # (A) 0.3 k/uL (0-1.0); Monocytes % (A) 5 %; Neutrophils # (A) 3.1 k/uL (1.3-7.7); Neutrophils % (A) 59 %; Platelet Count 272 k/uL (150-450); RDW 14.7 % (11.5-15.5); WBC 5.3 k/uL (3.8-10.6)
[2017-09-20 17:40] LABS: ALT 41 U/L (9-52); AST 36 U/L (14-36); Albumin 4.5 g/dL (3.5-5.0); Alkaline Phosphatase 90 U/L (38-126); Anion Gap 13 mmol/L; Blood Urea Nitrogen 14 mg/dL (7-17); Calcium 9.3 mg/dL (8.4-10.2); Carbon Dioxide 26 mmol/L (22-30); Chloride 106 mmol/L (98-107); Glucose 84 mg/dL (74-99); Potassium 3.7 mmol/L (3.5-5.1); Sodium 145 mmol/L (137-145); Total Bilirubin 0.4 mg/dL (0.2-1.3); Total Protein 7.3 g/dL (6.3-8.2)
--- NOTE | 2017-09-20 18:38 | CT ---
EXAMINATION TYPE: CT brain wo con for TPA DATE OF EXAM: 09/20/2017 COMPARISON: 12/11/2013 HISTORY: leg numbness. CT DLP: 996 mGycm Automated exposure control for dose reduction was used. FINDINGS: Ventricles and sulci appear normal. There is no mass effect nor midline shift. There is no sign of in tracranial hemorrhage. The calvarium is intact. IMPRESSION: Negative CT scan of the brain. No change.
[2017-09-20] MEDS ORDERED: SODIUM CHLORIDE 0.9% 1,000 ML IV ONE (19:26)
[2017-09-20] MEDS: levETIRAcetam 500 MG TAB PO SCH (22:22)
[2017-09-21] MEDS: levETIRAcetam 500 MG TAB PO SCH ×2 (07:58→20:42)
--- NOTE | 2017-09-21 11:34 | P.CNNES ---
History of Present Illness Consult date: 09/21/17 Reason for Consult: Patient admitted with right leg weakness and possible stroke. History of Present Illness: This patient is a 21-year-old right-handed white female who was in her usual state of health until yesterday morning. Patient states that she awoke at about 4 AM as this is her normal time to get up to get to work. 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 She got up yesterday and noted that she was having some difficulty standing. She then complained of some numbness in her right leg. She thought it would improve with the time and breast however it did not seem to improve at all. She was able to stand but ambulated very slowly due to right leg weakness. She was complaining of some numbness in the right foot. She did mention this to her mother who suggests that she go to the emergency room for further evaluation. Patient mentions that she has a history of cerebral palsy and seizure disorder. She is on Keppra monotherapy for seizure prophylaxis. She has not had any recent breakthrough seizures. She states that her right leg was feeling numb from the mid leg portion down to the toes. No other areas of numbness was reported. She was having trouble moving her right ankle joint. 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 Second bout occurred in 2013 for which she required almost 3 months of rehabilitation. The exact etiology of these events is not well documented. She states she did have a spinal fluid analysis in 2013 which did not show evidence of Guillain-Snyder at the time. She has not had any recent recurrence of these symptoms. Her weakness in 2014 did involve her legs but it was symmetrical involving both lower extremities. Patient was seen in the emergency room by Dr. Smith. A computed tomography scan of the brain was completed. CAT scan came back negative for any acute changes. There was still some concern for question of acute stroke. Patient was advised admission to the hospital for further assessment and recommendations. Patient states that since coming into the hospital she still feels weak in the right foot. Its mostly the distal foot muscles that are involved. She does have maintained reflexes in the knee jerks bilaterally the finding of which would not be compatible with acute Guillain-Snyder syndrome. She also has slight hyperreflexia in the right knee jerk. Given this patient's young age there is also some concern for demyelinating disease such as MS. We've recommended that she should have a MRI of the brain completed for further evaluation. Depending on the results of the MRI she may require further analysis with a lumbar puncture but we will await the results of the MRI first. Patient states with her 2 bouts of suspected Guillain-Snyder she never required any specific treatment for these conditions. She does not have any sensory level in her waist or in the lower extremities. The acute onset of her symptoms suggest possibility of vascular ischemia and we will need to await her full MRI to be done for further assessment. Patient otherwise states he has been doing fairly well. She has not had any difficulty with seizures. She is on Keppra monotherapy and takes her medications religiously. We've recommended that a Keppra level be done this morning. We will try to obtain an MRI this weekend for further evaluation. We will continue close neurological follow-up this patient during this admission. Her overall prognosis at this time remains guarded. Review of Systems Constitutional: Denies chills, Denies fever Eyes: denies blurred vision, denies pain Ears, nose, mouth and throat: Denies headache, Denies sore throat Cardiovascular: Denies chest pain, Denies shortness of breath Respiratory: Denies cough Gastrointestinal: Denies abdominal pain, Denies diarrhea, Denies nausea, Denies vomiting Genitourinary: Denies dysuria, Denies hematuria Musculoskeletal: Denies myalgias Musculoskeletal: right: ankle stiffness Integumentary: Denies pruritus, Denies rash Neurological: Reports balance difficulties, Reports gait dysfunction, Reports paresthesias, Reports tingling, Denies numbness, Denies weakness Psychiatric: Denies anxiety, Denies depression Endocrine: Denies fatigue, Denies weight change 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, anx/bipolar and seizure disorder-last seizure 5 years ago History of Any Multi-Drug Resistant Organisms: None Reported Past Surgical History: No Surgical Hx Reported Additional Past Surgical History / Comment(s): no reported hx Past Anesthesia/Blood Transfusion Reactions: No Reported Reaction Additional Past Anesthesia/Blood Transfusion Reaction / Comment(s): FATHER- TAKES LONGER TO WAKE UP WITH ANESTHESIA" Smoking Status: Former smoker - Past Family History Mother Family Medical History: Diabetes Mellitus, Hypertension, Seizure Disorder Additional Family Medical History / Comment(s): SVT Father History Unknown: Yes Medications and Allergies Home Medications Medication Instructions Recorded Confirmed Type levETIRAcetam [Keppra] 500 mg PO BID 06/02/16 09/20/17 History Allergies Allergy/AdvReac Type Severity Reaction Status Date / Time Sulfa (Sulfonamide Allergy Rash/Hives Verified 09/20/17 17:07 Antibiotics) NUTS Allergy Anaphylaxis Uncoded 09/20/17 14:05 Physical Examination - Vital Signs Vital Signs: Vital Signs Temp Pulse Pulse Resp BP BP Pulse Ox 09/21/17 07:47 96.8 F L 73 18 110/64 95 09/21/17 04:00 97.8 F 64 16 101/59 96 09/21/17 00:00 97.8 F 85 16 112/62 96 09/20/17 20:30 97.6 F 73 16 129/80 96 09/20/17 20:13 98.6 F 75 16 136/89 99 09/20/17 18:56 77 17 124/65 97 09/20/17 16:55 73 16 127/79 98 09/20/17 14:02 98.4 F 62 18 134/66 99 Intake and Output 09/20/17 09/21/17 09/21/17 22:59 06:59 14:59 Intake Total 600 Balance 600 Intake: Intake, IV Titration 600 Amount Sodium Chloride 0.9% 1, 600 000 ml @ 75 mls/hr IV . [id number] ONE Rx#:[id number] Other: Voiding Method Toilet Toilet # Voids 0 0 Weight 73.6 kg - Constitutional General appearance: average body habitus, cooperative - EENT EENT: PERRL, mucous membranes moist - Respiratory Respiratory: lungs clear, normal breath sounds - Cardiovascular Cardiovascular: regular rate, normal S1, normal S2 Extremities: no peripheral edema bilaterally - Gastrointestinal Gastrointestinal: normoactive bowel sounds - Integumentary Integumentary: normal - Neurologic Cranial nerve examination: PERRL, EOMI, VFF, V1/V2/V3 grossly intact, face symmetric, intact shoulder shrug, intact gag reflex, intact corneal reflex, normal palatal elevation Speech examination: intact Sensorimotor examination: intact Motor examination - right side: 2/5: knee extensors, dorsiflexion, toe extension (EHL), plantarflexion, 3/5: hip flexors, 4/5: biceps, triceps, wrist flexion, wrist extension, recreation therapy teacher Motor examination - left side: 4/5: biceps, triceps, wrist flexion, wrist extension, recreation therapy teacher, hip flexors, knee extensors, dorsiflexion, toe extension (EHL) , plantarflexion Detailed sensory examination: intact Reflex and gait examination: intact Reflexes: 2+: ankle, bicep, tricep, 3+: knee - Musculoskeletal Musculoskeletal: no pain - Psychiatric Psychiatric: mood/affect appropriate, cooperative Results - Laboratory Findings CBC and BMP: 09/20/17 17:14 09/20/17 17:14 Assessment and Plan (1) Acute ischemic left MCA stroke Current Visit: Yes Status: Acute Code(s): I63.512 - CEREB INFRC D/T UNSP OCCLS OR STENOS OF LEFT MID CEREB ART SNOMED Code(s): 046693289 (2) History of Guillain-[place] syndrome Current Visit: Yes Status: Acute Code(s): Z86.69 - PERSONAL HISTORY OF DIS OF THE NERVOUS SYS AND SENSE ORGANS SNOMED Code(s): 177547443885877 (3) Seizure disorder Current Visit: Yes Status: Acute Code(s): G40.909 - EPILEPSY, UNSP, NOT INTRACTABLE, WITHOUT STATUS EPILEPTICUS SNOMED Code(s): 943556649 (4) History of cerebral palsy Current Visit: Yes Status: Acute Code(s): Z86.69 - PERSONAL HISTORY OF DIS OF THE NERVOUS SYS AND SENSE ORGANS SNOMED Code(s): 447872116 Plan: This patient is a 21-year-old female who was admitted to hospital with acute onset of right leg numbness and weakness distally. Patient awoke at 4 AM to go to work and noticed that she was having difficulty with the use of her right leg and foot. She was able to stand and ambulate but felt very weak on her right side. She was brought into the emergency room at [facility] for further evaluation. She was seen in the ER by Dr. Smith. Computed tomography scan of the brain was completed and was negative for any acute stroke or hemorrhage. Clinical findings suggested possibility of stroke. Computed tomography scan of the brain as noted was negative for any acute changes. Patient subsequently admitted to Hospital. 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 Her clinical history and exam findings at this time is not strongly in favor of acute Guillain-Snyder syndrome for this patient's current symptoms. We've recommended that she undergo an MRI of the brain for further evaluation to rule out demyelinating disease such as MS in this young female. We will await an MRI to be done and we'll give further recommendations at that time. If the patient develops ascending paresthesias and weakness we will consider performing a lumbar puncture for further evaluation for acute Guillain-Snyder syndrome. At this time her neurological exam is not consistent with that diagnosis. We will continue to follow her progress closely. As noted further recommendations will be given pending the results of her MRI of the brain. Overall prognosis at this time remains guarded. Time with Patient: Greater than 30
[2017-09-21 12:09] LABS: INR 1.1 (<1.2); Prothrombin Time 10.4 sec (9.0-12.0)
--- NOTE | 2017-09-21 14:40 | P.HPIM ---
History of Present Illness H&P Date: 09/21/17 Chief Complaint: Right lower extremity weakness This is a 21-year-old female with past medical history significant for seizure disorder and bipolar disorder who presented to the emergency room with a right lower extremity weakness and numbness that started yesterday. Patient said that her symptoms started all of a sudden. She described having trouble moving her right ankle joint. He also reported numbness only in the right foot. She denies having any recent seizure episodes. She is maintained on Keppra. She was advised by her mother to go to the emergency room. 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 They also said that this was diagnosed again in 2013 here at this hospital but I was unable to provide any medical records indicate that. Patient is currently admitted to the hospital for further evaluation. She underwent a computed tomography scan of the brain showing no acute intracranial findings. She was seen and evaluated by neurology. Plan to obtain an MRI for further evaluation. Review of Systems Review of system: 14 points review of systems were obtained and were negative except to what were mentioned in the HPI. 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, anx/bipolar and seizure disorder-last seizure 5 years ago History of Any Multi-Drug Resistant Organisms: None Reported Past Surgical History: No Surgical Hx Reported Additional Past Surgical History / Comment(s): no reported hx Past Anesthesia/Blood Transfusion Reactions: No Reported Reaction Additional Past Anesthesia/Blood Transfusion Reaction / Comment(s): FATHER- TAKES LONGER TO WAKE UP WITH ANESTHESIA" Smoking Status: Former smoker - Past Family History Mother Family Medical History: Diabetes Mellitus, Hypertension, Seizure Disorder Additional Family Medical History / Comment(s): SVT Father History Unknown: Yes Medications and Allergies Home Medications Medication Instructions Recorded Confirmed Type levETIRAcetam [Keppra] 500 mg PO BID 06/02/16 09/20/17 History Allergies Allergy/AdvReac Type Severity Reaction Status Date / Time Sulfa (Sulfonamide Allergy Rash/Hives Verified 09/20/17 17:07 Antibiotics) NUTS Allergy Anaphylaxis Uncoded 09/20/17 14:05 Physical Exam Vitals: Vital Signs Temp Pulse Pulse Resp BP BP Pulse Ox 12/09/17 11:23 96.2 F L 75 18 99/61 96 09/21/17 07:47 96.8 F L 73 18 110/64 95 09/21/17 04:00 97.8 F 64 16 101/59 96 09/21/17 00:00 97.8 F 85 16 112/62 96 09/20/17 20:30 97.6 F 73 16 129/80 96 09/20/17 20:13 98.6 F 75 16 136/89 99 09/20/17 18:56 77 17 124/65 97 09/20/17 16:55 73 16 127/79 98 Intake and Output 09/20/17 09/21/17 09/21/17 22:59 06:59 14:59 Intake Total 600 600 Balance 600 600 Intake: Intake, IV Titration 600 600 Amount Sodium Chloride 0.9% 1, 600 600 000 ml @ 75 mls/hr IV . [id number] ONE Rx#:[id number] Other: Voiding Method Toilet Toilet # Voids 0 0 Weight 73.6 kg General: The patient is awake and alert, in no distress Eye: there is normal conjunctiva bilaterally. Neck: The neck is supple, there is no JVD. Cardiovascular: Normal S1-S2, no S3-S4, no murmurs. Respiratory: Lungs clear to auscultation bilaterally Gastrointestinal: Abdomen is soft, nontender Musculoskeletal: There is no pedal edema. Neurological:. Speech is normal. Skin: Skin is warm and dry Results CBC & Chem 7: 09/20/17 17:14 09/20/17 17:14 Assessment and Plan Assessment: 1. Right lower extremity weakness/numbness: Exact etiology unclear. Seen and evaluated by neurology. MRI of the brain ordered. 2. History of seizure disorder, maintained on Keppra. No recent seizures reported. 3. Underlying bipolar disorder 4. 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 No medical records available for me to review. Today, I reviewed her medication list and lab work results. We'll continue current regimen. I will check fasting lipid profile. Appreciate neurology recommendations. PT/OT evaluation.
[2017-09-21] MEDS: HEPARIN SODIUM,PORCINE 5,000 UNIT/ML 1 ML VIAL SQ SCH (20:42)
[2017-09-22 06:45] LABS: Cholesterol 94 mg/dL (<200); HDL Cholesterol 44 mg/dL (40-60); LDL Cholesterol,Calculated 38 mg/dL (0-99); Triglycerides 58 mg/dL (<150)
[2017-09-22 08:43] VITALS: RESP 16
[2017-09-22] MEDS: HEPARIN SODIUM,PORCINE 5,000 UNIT/ML 1 ML VIAL SQ SCH ×2 (09:34→20:19)
[2017-09-22] MEDS: levETIRAcetam 500 MG TAB PO SCH ×2 (09:34→20:18)
--- NOTE | 2017-09-22 11:53 | P.PN ---
Subjective Patient reported that she is feeling the same as yesterday. She is awaiting MRI of the brain to be done as ordered by neurology. Objective - Vital Signs Vital signs: Vital Signs Temp 97.8 F 09/22/17 08:38 Pulse 58 L 09/22/17 08:38 Resp 16 09/22/17 08:38 BP 110/62 09/22/17 08:38 Pulse Ox 99 09/22/17 08:38 Intake & Output 09/21/17 09/22/17 09/22/17 18:59 06:59 18:59 Intake Total 1130 20 236 Output Total 1200 Balance -70 20 236 Weight 74.3 kg Intake: IV 20 0.9 20 Intake, IV Titration 600 Amount Sodium Chloride 0.9% 1, 600 000 ml @ 75 mls/hr IV . [id number] ONE Rx#:[id number] Oral 530 236 Output: Urine 1200 Other: Voiding Method Toilet Toilet - Exam General: The patient is awake and alert, in no distress Eye: there is normal conjunctiva bilaterally. Neck: The neck is supple, there is no JVD. Cardiovascular: Normal S1-S2, no S3-S4, no murmurs. Respiratory: Lungs clear to auscultation bilaterally Gastrointestinal: Abdomen is soft, nontender Musculoskeletal: There is no pedal edema. Neurological:. Speech is normal. Skin: Skin is warm and dry - Labs CBC & Chem 7: 09/20/17 17:14 09/20/17 17:14 Assessment and Plan Assessment: 1. Right lower extremity weakness/numbness: Exact etiology unclear. Seen and evaluated by neurology. MRI of the brain ordered. Cholesterol within normal range 2. History of seizure disorder, maintained on Keppra. No recent seizures reported. 3. Underlying bipolar disorder 4. 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 No medical records available for me to review. Awaiting MRI of the brain to be done in the morning. Today, I reviewed her medication list and lab work results. We'll continue current regimen. Appreciate neurology recommendations. PT/OT evaluation.
--- NOTE | 2017-09-22 14:20 | P.PN ---
Subjective Progress Note Date: 09/22/17 This patient is a 21-year-old female who is being evaluated for right leg numbness and weakness. She has not noticed much change from yesterday in terms of her symptoms of right leg weakness. MRI of the brain is been ordered an will likely be done only tomorrow morning. We are waiting the MRI for further evaluation. Patient has a history of underlying seizure disorder and is currently maintained on Keppra. Her Keppra blood level is still pending from the laboratory. She has not had any breakthrough seizures. Patient denies any headache or back pain at this time. She had given a history of remote Guillain- Snyder syndrome however actual records are still not available for review. She does have maintained reflexes in the lower extremities which is not typically seen with Guillain-Snyder syndrome. As noted we will await the MRI of the brain for further assessment and treatment plans based on these results. We have recommended that she be evaluated by physical therapy. She was able to stand today with some minimal assistance. She states the leg still feels numb. We will continue close neurological follow-up with the patient during this admission. Objective - Vital Signs Vital signs: Vital Signs Temp 97.8 F 09/22/17 08:38 Pulse 58 L 09/22/17 08:38 Resp 16 09/22/17 08:38 BP 110/62 09/22/17 08:38 Pulse Ox 99 09/22/17 08:38 Intake & Output 09/21/17 09/22/17 09/22/17 18:59 06:59 18:59 Intake Total 1130 20 236 Output Total 1200 Balance -70 20 236 Weight 74.3 kg Intake: IV 20 0.9 20 Intake, IV Titration 600 Amount Sodium Chloride 0.9% 1, 600 000 ml @ 75 mls/hr IV . [id number] ONE Rx#:[id number] Oral 530 236 Output: Urine 1200 Other: Voiding Method Toilet Toilet - Exam Physical examination: PHYSICAL EXAMINATION: Patient is resting comfortably in bed. VITAL SIGNS: Blood pressure is [110/62]. Heart rate is [58]. Respiration is [16] . Temperature is [97.8]. HEENT: Head is atraumatic, neck is supple, there were no carotid bruits. CHEST: Lungs are clear to auscultation and percussion. CARDIAC: S1, S2 normal rate and rhythm. There is no murmur. ABDOMEN: Soft and nontender. Bowel sounds are present. EXTREMITIES: There is no pedal edema. Peripheral pulses are present. Neurological examination: Patient's neurological examination is unchanged from yesterday. She continues to have right lower extremity weakness and numbness. - Labs CBC & Chem 7: 09/20/17 17:14 12 17:14 Assessment and Plan (1) Acute ischemic left MCA stroke Current Visit: Yes Status: Acute Code(s): I63.512 - CEREB INFRC D/T UNSP OCCLS OR STENOS OF LEFT MID CEREB ART SNOMED Code(s): 852622865 (2) History of Guillain-[place] syndrome Current Visit: Yes Status: Acute Code(s): Z86.69 - PERSONAL HISTORY OF DIS OF THE NERVOUS SYS AND SENSE ORGANS SNOMED Code(s): 999718785321372 (3) Seizure disorder Current Visit: Yes Status: Acute Code(s): G40.909 - EPILEPSY, UNSP, NOT INTRACTABLE, WITHOUT STATUS EPILEPTICUS SNOMED Code(s): 676945455 (4) History of cerebral palsy Current Visit: Yes Status: Acute Code(s): Z86.69 - PERSONAL HISTORY OF DIS OF THE NERVOUS SYS AND SENSE ORGANS SNOMED Code(s): 549959318 Plan: This patient is a 21-year-old female who was admitted to hospital with acute onset of right leg numbness and weakness distally. Patient awoke at 4 AM to go to work and noticed that she was having difficulty with the use of her right leg and foot. She was able to stand and ambulate but felt very weak on her right side. She was brought into the emergency room at [facility] for further evaluation. She was seen in the ER by Dr. Smith. Computed tomography scan of the brain was completed and was negative for any acute stroke or hemorrhage. Clinical findings suggested possibility of stroke. Computed tomography scan of the brain as noted was negative for any acute changes. Patient subsequently admitted to Hospital. 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 Her clinical history and exam findings at this time is not strongly in favor of acute Guillain-Snyder syndrome for this patient's current symptoms. We've recommended that she undergo an MRI of the brain for further evaluation to rule out demyelinating disease such as MS in this young female. We will await an MRI to be done and we'll give further recommendations at that time. If the patient develops ascending paresthesias and weakness we will consider performing a lumbar puncture for further evaluation for acute Guillain-Snyder syndrome. At this time her neurological exam is not consistent with that diagnosis. MRI of the brain is scheduled to be done tomorrow. Depending on those results further recommendations will be considered. We will continue to follow her progress closely. As noted further recommendations will be given pending the results of her MRI of the brain. Overall prognosis at this time remains guarded.
[2017-09-23] MEDS: levETIRAcetam 500 MG TAB PO SCH ×2 (08:50→20:51)
[2017-09-23] MEDS: HEPARIN SODIUM,PORCINE 5,000 UNIT/ML 1 ML VIAL SQ SCH ×2 (08:50→20:51)
--- NOTE | 2017-09-23 11:57 | P.PN ---
Subjective No events overnight. MRI scheduled for today around 2:30 in the afternoon Objective - Vital Signs Vital signs: Vital Signs Temp 97.5 F L 09/23/17 11:22 Pulse 80 09/23/17 11:22 Resp 16 09/23/17 11:22 BP 105/56 09/23/17 11:22 Pulse Ox 96 09/23/17 11:22 Intake & Output 09/22/17 09/23/17 09/23/17 18:59 06:59 18:59 Intake Total 1296 Output Total 1050 Balance 246 Weight 74.4 kg Intake: IV 0 0.9 0 Oral 1296 Output: Urine 1050 Other: Voiding Method Toilet Toilet Toilet # Voids 2 1 1 - Exam General: The patient is awake and alert, in no distress Eye: there is normal conjunctiva bilaterally. Neck: The neck is supple, there is no JVD. Cardiovascular: Normal S1-S2, no S3-S4, no murmurs. Respiratory: Lungs clear to auscultation bilaterally Gastrointestinal: Abdomen is soft, nontender Musculoskeletal: There is no pedal edema. Neurological:. Speech is normal. Skin: Skin is warm and dry - Labs CBC & Chem 7: 09/20/17 17:14 09/20/17 17:14 Assessment and Plan Assessment: 1. Right lower extremity weakness/numbness: Exact etiology unclear. Seen and evaluated by neurology. MRI of the brain ordered. Cholesterol within normal range 2. History of seizure disorder, maintained on Keppra. No recent seizures reported. 3. Underlying bipolar disorder 4. 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 No medical records available for me to review. Awaiting MRI of the brain to be done in the morning. Today, I reviewed her medication list and lab work results. We'll continue current regimen. Appreciate neurology recommendations. PT/OT evaluation. MRI scheduled for today at 2:30 PM. Appreciate neurology recommendations. Anticipate discharge tomorrow.
--- NOTE | 2017-09-23 15:43 | MR ---
EXAMINATION TYPE: MR brain wo/w con DATE OF EXAM: 09/23/2017 COMPARISON: Prior brain MRI dated 03/16/2015 HISTORY: Acute rt leg weakness, headaches TECHNIQUE: Multiplanar, multisequence images of the brain and brainstem is performed without and with IV contras t, utilizing 7 mL intravenous Gadavist . FINDINGS: Diffusion weighted images demonstrate no evidence of a recent infarct or other diffusion ab normality. There is no extra-axial fluid collection. Some minimal periventricular hyperintensity pre sent bilaterally and inversion recovery and T2-weighted sequences is a stable finding. The ventricula r system and cisternal spaces are normal in size and appearance. The brain volume is age appropriate . Midline structures demonstrate normal morphology. The craniocervical junction appears within normal limits. Post contrast images demonstrate no abnormal enhancement. The dural venous sinuses appear pa tent. The visualized sinuses are remarkable for mucosal disease in the maxillary sinuses and the glob es are intact. IMPRESSION: Stable exam, no acute abnormalities evident
--- NOTE | 2017-09-23 21:19 | P.PN ---
Subjective Progress Note Date: 09/23/17 This patient is a 21-year-old female who is being evaluated for right leg numbness and weakness. She has not noticed much change from yesterday in terms of her symptoms of right leg weakness. MRI of the brain is been ordered an will likely be done only tomorrow morning. We are waiting the MRI for further evaluation. Patient has a history of underlying seizure disorder and is currently maintained on Keppra. Her Keppra blood level is still pending from the laboratory. She has not had any breakthrough seizures. Patient denies any headache or back pain at this time. She had given a history of remote Guillain- Snyder syndrome however actual records are still not available for review. She does have maintained reflexes in the lower extremities which is not typically seen with Guillain-Snyder syndrome. As noted we will await the MRI of the brain for further assessment and treatment plans based on these results. We have recommended that she be evaluated by physical therapy. She was able to stand today with some minimal assistance. She states the leg still feels numb. Patient did go for MRI of the brain today. This MRI study was compared to previous study done on 03/16/2015. The MRI is normal with no evidence of acute stroke. There is no evidence to suggest underlying demyelinating disease. We discussed the results of the MRI today in detail with the patient. She may consider outpatient physical therapy for the right leg symptoms. As noted there is no evidence to consider Guillain-Snyder as her reflexes are intact. Patient is being considered for possible discharge home tomorrow. We will continue close neurological follow-up with the patient during this admission. Objective - Vital Signs Vital signs: Vital Signs Temp 97.6 F 09/23/17 16:00 Pulse 62 09/23/17 16:00 Resp 16 09/23/17 16:00 BP 113/60 09/23/17 16:00 Pulse Ox 100 09/23/17 16:00 Intake & Output 09/22/17 09/23/17 09/23/17 18:59 06:59 18:59 Intake Total 1296 680 Output Total 1050 200 Balance 246 480 Weight 74.4 kg Intake: IV 0 0.9 0 Oral 1296 680 Output: Urine 1050 200 Other: Voiding Method Toilet Toilet Toilet # Voids 2 1 1 - Exam Physical examination: PHYSICAL EXAMINATION: Patient is resting comfortably in bed. VITAL SIGNS: Blood pressure is [114/60]. Heart rate is [62]. Respiration is [16] . Temperature is [97.6]. HEENT: Head is atraumatic, neck is supple, there were no carotid bruits. CHEST: Lungs are clear to auscultation and percussion. CARDIAC: S1, S2 normal rate and rhythm. There is no murmur. ABDOMEN: Soft and nontender. Bowel sounds are present. EXTREMITIES: There is no pedal edema. Peripheral pulses are present. Neurological examination: Patient's neurological examination is unchanged from yesterday. She continues to have right lower extremity numbness only. She states her strength is improved today in the right leg. - Labs CBC & Chem 7: 09/20/17 17:14 12 17:14 Assessment and Plan (1) Acute ischemic left MCA stroke Current Visit: Yes Status: Acute Code(s): I63.512 - CEREB INFRC D/T UNSP OCCLS OR STENOS OF LEFT MID CEREB ART SNOMED Code(s): 665914868 (2) History of Guillain-[place] syndrome Current Visit: Yes Status: Acute Code(s): Z86.69 - PERSONAL HISTORY OF DIS OF THE NERVOUS SYS AND SENSE ORGANS SNOMED Code(s): 925349871547949 (3) Seizure disorder Current Visit: Yes Status: Acute Code(s): G40.909 - EPILEPSY, UNSP, NOT INTRACTABLE, WITHOUT STATUS EPILEPTICUS SNOMED Code(s): 358562923 (4) History of cerebral palsy Current Visit: Yes Status: Acute Code(s): Z86.69 - PERSONAL HISTORY OF DIS OF THE NERVOUS SYS AND SENSE ORGANS SNOMED Code(s): 788778716 Plan: This patient is a 21-year-old female initially admitted to Hospital last week with symptoms of right leg numbness and weakness. Her weakness in the right leg has shown improvement. She has been up and ambulating with a walker. She underwent MRI of the brain today which came back entirely normal with no evidence of acute stroke or demyelinating disease such as MS. We reviewed the MRI results today with the patient in detail. We are recommending she have some outpatient physical therapy. Her exam does not suggest underlying Guillain -Snyder as she has maintained reflexes. At this point we will consider further workup once the patient is more ambulatory. She may benefit from further evaluation of her lumbar spine. She has denied any significant back pain however since admission to the hospital. We reviewed the MRI results once again with the patient in detail. She may be considered for discharge home tomorrow. We will continue to follow her progress very closely during this admission.
[2017-09-24] MEDS: levETIRAcetam 500 MG TAB PO SCH (08:05)
[2017-09-24] MEDS: HEPARIN SODIUM,PORCINE 5,000 UNIT/ML 1 ML VIAL SQ SCH (08:05)
--- NOTE | 2017-09-24 11:37 | P.DS ---
Providers Date of admission: 09/20/17 19:25 Expected date of discharge: 09/24/17 Attending physician: Lawrence Bueno Consults: 09/20/17 19:26 Consult Physician Urgent Consulting Provider: Gene Cortez Consult Reason/Comments: CVA Do you want consulting provider notified?: Yes Primary care physician: Lawrence [facility] Course: This is a 21-year-old female with past medical history noted below who presented to the hospital with right lower extremity numbness and weakness. Patient was evaluated by neurology. She did not have any neurological focal deficits. Computed tomography scan of the brain was unremarkable. Patient underwent an MRI showing no acute findings either. She was cleared by neurology for discharge. She will be referred to physical therapy as an outpatient. Below is a list of her medical problems. 1. Right lower extremity weakness/numbness: Exact etiology unclear. Seen and evaluated by neurology. MRI of the brain unremarkable. Cholesterol within normal range 2. History of seizure disorder, maintained on Keppra. No recent seizures reported. 3. Underlying bipolar disorder 4. 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 No medical records available for me to review. Plan - Discharge Summary Discharge Rx Participant: No New Discharge Prescriptions: Continue levETIRAcetam [Keppra] 500 mg PO BID Discharge Medication List levETIRAcetam [Keppra] 500 mg PO BID 06/02/16 [History] Follow up Appointment(s)/Referral(s): Lawrence Bueno MD [Primary Care Provider] - 09/30/17 3:30 pm (Saturday) Discharge Disposition: HOME SELF-CARE
[2017-09-24 11:39] VITALS: BP 114/79; PULSE 87; TEMP 97.6
== END 2017-09-24 12:46 | disposition home or self-care (01) ==
LOC: EC 13:45 → INTOOBSV 19:25 → 6SEL 19:25 → UNDODISIN 09-24 12:46
PROVIDERS: ADMIT Internal Medicine; ATTEND Internal Medicine
DX: R20.0 Anesthesia of skin (principal); F31.9 Bipolar disorder, unspecified; R53.1 Weakness; G40.909 Epilepsy, unspecified, not intractable, without status epilepticus; G80.9 Cerebral palsy, unspecified; F41.9 Anxiety disorder, unspecified; Z79.899 Other long term (current) drug therapy; Z87.891 Personal history of nicotine dependence; Z88.2 Allergy status to sulfonamides; Z91.018 Allergy to other foods; Z86.69 Personal history of other diseases of the nervous system and sense organs; Z82.49 Family history of ischemic heart disease and other diseases of the circulatory system
CPT/HCPCS: 96376 ×3; 96361 ×3; 96374; 99285; 36415; 93005; 97162; 80061; 80053; 80177; 85025; 85610; 81025; 70450; 70553; G0378 ×5; J1644 ×4; A9581; 96360

== ENCOUNTER 2017-10-11 17:55 | Emergency (ER) | payer OTHER ==
[2017-10-11 18:08] VITALS: TEMP 101
[2017-10-11] MEDS ORDERED: IBUPROFEN 600 MG TAB PO STA (19:28)
[2017-10-11] MEDS ORDERED: ACETAMINOPHEN TAB 500 MG TAB PO STA (19:28)
[2017-10-11] MEDS ORDERED: diphenhydrAMINE 50 MG/ML 1 ML VIAL IVP STA (20:28)
[2017-10-11] MEDS ORDERED: ONDANSETRON 4 MG/2 ML VIAL IVP STA (20:28)
--- NOTE | 2017-10-11 20:28 | ED ---
Headache HPI - General Chief Complaint: Headache Stated Complaint: Headache Time Seen by Provider: 10/11/17 19:16 Source: RN notes reviewed, old records reviewed Mode of arrival: ambulatory Limitations: no limitations - History of Present Illness Initial Comments: Is a 21-year-old female presents emergency department today with 3 days of sore throat, nausea vomiting, and headache and fever. Patient has history of cervical palsy. She rubbed emergency department by herself today. She was admitted one month ago for a CVA possible. Patient had an MRI of her brain that time showed no abnormalities. She denies any neck pain or neck stiffness. She denies any specific abdominal pain. Patient denies any cough. She reports she's been taking Tylenol for relief of her headache. Patient states that she's been having chills, and poor appetite due to her sore throat. - Related Data Home Medications Medication Instructions Recorded Confirmed levETIRAcetam [Keppra] 500 mg PO BID 06/02/16 10/11/17 Acetaminophen Tab [Tylenol Tab] 1,000 mg PO Q6HR 10/11/17 10/11/17 Previous Rx's Medication Instructions Recorded Azithromycin [Zithromax Z-pack] 250 mg PO DIRECTED #6 tab 10/11/17 Ibuprofen [Motrin] 600 mg PO Q6HR PRN #20 tab 10/11/17 Ondansetron Odt [Zofran Odt] 4 mg PO Q8HR PRN #12 tab 10/11/17 methylPREDNISolone [Medrol Dose 4 mg PO DIRECTED #1 pack 10/11/17 Pack] Allergies Allergy/AdvReac Type Severity Reaction Status Date / Time peanut Allergy Anaphylaxis Verified 10/11/17 19:53 Sulfa (Sulfonamide Allergy Rash/Hives Verified 10/11/17 19:53 Antibiotics) tree nut [Nut] Allergy Anaphylaxis Verified 10/11/17 19:53 Review of Systems ROS Statement: Those systems with pertinent positive or pertinent negative responses have been documented in the HPI. ROS Other: All systems not noted in ROS Statement are negative. 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, anx/bipolar and seizure disorder-last seizure 5 years ago History of Any Multi-Drug Resistant Organisms: None Reported Past Surgical History: No Surgical Hx Reported Additional Past Surgical History / Comment(s): no reported hx Past Anesthesia/Blood Transfusion Reactions: No Reported Reaction Additional Past Anesthesia/Blood Transfusion Reaction / Comment(s): FATHER- TAKES LONGER TO WAKE UP WITH ANESTHESIA" Past Psychological History: Anxiety, Bipolar Smoking Status: Former smoker Past Alcohol Use History: None Reported Past Drug Use History: None Reported - Past Family History Mother Family Medical History: Diabetes Mellitus, Hypertension, Seizure Disorder Additional Family Medical History / Comment(s): SVT Father History Unknown: Yes General Exam - General Exam Comments Initial Comments: Is a 21-year-old female. Limitations: no limitations General appearance: alert, in no apparent distress Head exam: Present: atraumatic, normocephalic, normal inspection Eye exam: Present: normal appearance, PERRL, EOMI. Absent: scleral icterus, conjunctival injection, periorbital swelling ENT exam: Present: normal exam, mucous membranes moist. Absent: normal oropharynx (Erythematous oropharynx with bilateral) Neck exam: Present: normal inspection. Absent: tenderness, meningismus, lymphadenopathy Respiratory exam: Present: normal lung sounds bilaterally. Absent: respiratory distress, wheezes, rales, rhonchi, stridor Cardiovascular Exam: Present: regular rate, normal rhythm, normal heart sounds. Absent: systolic murmur, diastolic murmur, rubs, gallop, clicks GI/Abdominal exam: Present: soft, normal bowel sounds. Absent: distended, tenderness, guarding, rebound, rigid Extremities exam: Present: normal inspection, full ROM, normal capillary refill. Absent: tenderness, pedal edema, joint swelling, calf tenderness Back exam: Present: normal inspection, full ROM Neurological exam: Present: alert, oriented X3, CN II-XII intact Psychiatric exam: Present: normal affect, normal mood Skin exam: Present: warm, dry, intact, normal color. Absent: rash Course Vital Signs 10/11/17 10/11/17 18:07 21:29 Temperature 101 F H Pulse Rate 120 H 98 Respiratory 20 18 Rate Blood Pressure 128/66 120/66 O2 Sat by Pulse 97 96 Oximetry Medical Decision Making - Medical Decision Making 21-year-old female presents emergency per day with fever, chills, body aches and headache. Patient arrives to emergency room with fever 101. Given Motrin and Tylenol, IV fluids labwork obtained. Patient's labwork was reviewed and unremarkable. Her rapid strep was negative. Patient does have a significant leave erythematous oropharynx with exudates. Her heterophile test is also negative at this time. Discussed it could be too early to tell for possible mono at this time and he may not of turn positive for the heterophile. However given patient's erythema of her throat I will put the patient on azithromycin today for bacterial pharyngitis. Patient was reevaluated reports that she does feel much better after receiving IV fluids and Motrin Tylenol. Her fever is diminishing at this time. Patient understands treatment plan will comply. Discussed close return parameters. - Lab Data Result diagrams: 10/11/17 20:46 10/11/17 20:46 Lab Results 10/11/17 10/11/17 10/11/17 Range/Units 20:46 20:46 20:46 WBC 10.4 (3.8-10.6) k/uL RBC 4.78 (3.80-5.40) m/uL Hgb 13.8 (11.4-16.0) gm/dL Hct 42.0 (34.0-46.0) % MCV 87.9 (80.0-100.0) fL MCH 28.8 (25.0-35.0) pg MCHC 32.8 (31.0-37.0) g/dL RDW 14.3 (11.5-15.5) % Plt Count 169 (150-450) k/uL Neutrophils % 86 % Lymphocytes % 7 % Monocytes % 5 % Eosinophils % 1 % Basophils % 0 % Neutrophils # 9.0 H (1.3-7.7) k/uL Lymphocytes # 0.7 L (1.0-4.8) k/uL Monocytes # 0.5 (0-1.0) k/uL Eosinophils # 0.1 (0-0.7) k/uL Basophils # 0.0 (0-0.2) k/uL Sodium 136 L (137-145) mmol/L Potassium 5.6 H (3.5-5.1) mmol/L Chloride 101 (98-107) mmol/L Carbon Dioxide 24 (22-30) mmol/L Anion Gap 11 mmol/L BUN 12 (7-17) mg/dL Creatinine 0.82 (0.52-1.04) mg/dL Est GFR (MDRD) Af Amer >60 (>60 ml/min/1.73 sqM) Est GFR (MDRD) Non-Af >60 (>60 ml/min/1.73 sqM) Glucose 102 H (74-99) mg/dL Plasma Lactic Acid [place] (0.7-2.0) mmol/L Calcium 9.3 (8.4-10.2) mg/dL Total Bilirubin 1.0 (0.2-1.3) mg/dL AST 41 H (14-36) U/L ALT 26 (9-52) U/L Alkaline Phosphatase 97 (38-126) U/L Total Protein 8.4 H (6.3-8.2) g/dL Albumin 4.6 (3.5-5.0) g/dL Urine Color Urine Appearance (Clear) Urine pH (5.0-8.0) Ur Specific [place] (1.001-1.035) Urine Protein (Negative) Urine Glucose (UA) (Negative) Urine Ketones (Negative) Urine Blood (Negative) Urine Nitrite (Negative) Urine Bilirubin (Negative) Urine Urobilinogen (<2.0) mg/dL Ur Leukocyte Esterase (Negative) Urine RBC (0-5) /hpf Urine WBC (0-5) /hpf Ur Squamous Epith Cells (0-4) /hpf Urine Bacteria (None) /hpf Hyaline Casts (0-2) /lpf Urine Mucus (None) /hpf Heterophile Antibody (Negative) Influenza Type A RNA Not Detected (Not Detectd) Influenza Type B (PCR) Not Detected (Not Detectd) Group A Strep Rapid Negative (Negative) 10/11/17 10/11/17 10/11/17 Range/Units 20:46 20:46 20:50 WBC (3.8-10.6) k/uL RBC (3.80-5.40) m/uL Hgb (11.4-16.0) gm/dL Hct (34.0-46.0) % MCV (80.0-100.0) fL MCH (25.0-35.0) pg MCHC (31.0-37.0) g/dL RDW (11.5-15.5) % Plt Count (150-450) k/uL Neutrophils % % Lymphocytes % % Monocytes % % Eosinophils % % Basophils % % Neutrophils # (1.3-7.7) k/uL Lymphocytes # (1.0-4.8) k/uL Monocytes # (0-1.0) k/uL Eosinophils # (0-0.7) k/uL Basophils # (0-0.2) k/uL Sodium (137-145) mmol/L Potassium (3.5-5.1) mmol/L Chloride (98-107) mmol/L Carbon Dioxide (22-30) mmol/L Anion Gap mmol/L BUN (7-17) mg/dL Creatinine (0.52-1.04) mg/dL Est GFR (MDRD) Af Amer (>60 ml/min/1.73 sqM) Est GFR (MDRD) Non-Af (>60 ml/min/1.73 sqM) Glucose (74-99) mg/dL Plasma Lactic Acid Milad 0.9 (0.7-2.0) mmol/L Calcium (8.4-10.2) mg/dL Total Bilirubin (0.2-1.3) mg/dL AST (14-36) U/L ALT (9-52) U/L Alkaline Phosphatase (38-126) U/L Total Protein (6.3-8.2) g/dL Albumin (3.5-5.0) g/dL Urine Color Yellow Urine Appearance Clear (Clear) Urine pH 6.0 (5.0-8.0) Ur Specific [place] 1.027 (1.001-1.035) Urine Protein 1+ H (Negative) Urine Glucose (UA) Negative (Negative) Urine Ketones 1+ H (Negative) Urine Blood Negative (Negative) Urine Nitrite Negative (Negative) Urine Bilirubin Negative (Negative) Urine Urobilinogen 2.0 (<2.0) mg/dL Ur Leukocyte Esterase Negative (Negative) Urine RBC 5 (0-5) /hpf Urine WBC 2 (0-5) /hpf Ur Squamous Epith Cells 4 (0-4) /hpf Urine Bacteria Rare H (None) /hpf Hyaline Casts 5 H (0-2) /lpf Urine Mucus Many H (None) /hpf Heterophile Antibody Negative (Negative) Influenza Type A RNA (Not Detectd) Influenza Type B (PCR) (Not Detectd) Group A Strep Rapid (Negative) Disposition Clinical Impression: Pharyngitis, Headache Disposition: HOME SELF-CARE Condition: Good Instructions: Pharyngitis (ED), Acute Headache (ED) Additional Instructions: Rest rest, increase fluids. Follow-up with primary care provider. Alternate Motrin and Tylenol every 4 hours. Return to the emergency department if any alarming signs or symptoms occur. Prescriptions: Azithromycin [Zithromax Z-pack] 250 mg PO DIRECTED #6 tab Ibuprofen [Motrin] 600 mg PO Q6HR PRN #20 tab PRN Reason: Pain methylPREDNISolone [Medrol Dose Pack] 4 mg PO DIRECTED #1 pack Ondansetron Odt [Zofran Odt] 4 mg PO Q8HR PRN #12 tab PRN Reason: Nausea Referrals: Lawrence Bueno MD [Primary Care Provider] - 1-2 days Time of Disposition: 22:01
[2017-10-11 21:00] LABS: Basophils % (A) 0 %; Eosinophils # (A) 0.1 k/uL (0-0.7); Eosinophils % (A) 1 %; HGB 13.8 gm/dL (11.4-16.0); Lymphocytes # (A) 0.7 k/uL (1.0-4.8); Lymphocytes % (A) 7 %; MCH 28.8 pg (25.0-35.0); MCHC 32.8 g/dL (31.0-37.0); MCV 87.9 fL (80.0-100.0); Mean Platelet Volume 7.7; Monocytes # (A) 0.5 k/uL (0-1.0); Monocytes % (A) 5 %; Neutrophils % (A) 86 %; Platelet Count 169 k/uL (150-450); RBC 4.78 m/uL (3.80-5.40); RDW 14.3 % (11.5-15.5); WBC 10.4 k/uL (3.8-10.6)
[2017-10-11 21:14] LABS: ALT 26 U/L (9-52); AST 41 U/L (14-36); Albumin 4.6 g/dL (3.5-5.0); Alkaline Phosphatase 97 U/L (38-126); Anion Gap 11 mmol/L; Blood Urea Nitrogen 12 mg/dL (7-17); Calcium 9.3 mg/dL (8.4-10.2); Carbon Dioxide 24 mmol/L (22-30); Chloride 101 mmol/L (98-107); Glucose 102 mg/dL (74-99); Potassium 5.6 mmol/L (3.5-5.1); Sodium 136 mmol/L (137-145); Total Protein 8.4 g/dL (6.3-8.2)
[2017-10-11 21:24] LABS: Appearance,Urine Clear (Clear); Bacteria,Urine Rare /hpf; Bilirubin,Urine Negative (Negative); Blood,Urine Negative (Negative); Color,Urine Yellow; Glucose,Urine (UA) Negative (Negative); Hyaline Casts,Urine 5 /lpf (0-2); Ketones,Urine 1+ (Negative); Leukocyte Esterase,Urine Negative (Negative); Mucus,Urine Many /hpf; Nitrite,Urine Negative (Negative); Protein,Urine 1+ (Negative); RBC,Urine 5 /hpf (0-5); Specific Gravity,Urine 1.027 (1.001-1.035); Squamous Epithelial Cell,Urine 4 /hpf (0-4); WBC,Urine 2 /hpf (0-5)
[2017-10-11 21:29] VITALS: BP 120/66; PULSE 98; RESP 18
== END 2017-10-11 22:30 | disposition home or self-care (01) ==
LOC: EC 17:55
DX: J02.9 Acute pharyngitis, unspecified (principal); Z86.69 Personal history of other diseases of the nervous system and sense organs; Z87.891 Personal history of nicotine dependence; Z79.899 Other long term (current) drug therapy; Z91.010 Allergy to peanuts; Z91.018 Allergy to other foods; Z88.2 Allergy status to sulfonamides
CPT/HCPCS: 99284; 96374; 96375; 36415; 80053; 83605; 85025; 86308; 81001; 87040; 87086; 87081; 87430; 87077; 87186; 87502; J1200; J2405

== ENCOUNTER → 2017-10-23 | Outpatient (CLI) | payer OTHER | END | disposition home or self-care (01) | LOC: LABWHC1 10:37 | PROVIDERS: ATTEND Obstetrics & Gynecology | DX: N91.2 Amenorrhea, unspecified (principal) | CPT/HCPCS: 36415; 84702 ==

== ENCOUNTER → 2017-12-06 | Outpatient (CLI) | payer OTHER | END | disposition home or self-care (01) | LOC: LABWHC1 15:40 | PROVIDERS: ATTEND Obstetrics & Gynecology | DX: Z34.90 Encounter for supervision of normal pregnancy, unspecified, unspecified trimester (principal) | CPT/HCPCS: 36415; 84702 ==

== ENCOUNTER 2017-12-07 11:51 | Emergency (ER) | payer OTHER ==
[2017-12-07 11:58] VITALS: TEMP 97.8
[2017-12-07] MEDS ORDERED: ONDANSETRON 4 MG/2 ML VIAL IVP STA (12:20)
[2017-12-07] MEDS ORDERED: SODIUM CHLORIDE 0.9% 1,000 ML IV STA (12:20)
[2017-12-07 13:00] LABS: Basophils % (A) 0 %; Eosinophils # (A) 0.1 k/uL (0-0.7); Eosinophils % (A) 3 %; HCT 41.4 % (34.0-46.0); HGB 13.3 gm/dL (11.4-16.0); Lymphocytes # (A) 1.1 k/uL (1.0-4.8); Lymphocytes % (A) 27 %; MCH 28.6 pg (25.0-35.0); MCHC 32.2 g/dL (31.0-37.0); Mean Platelet Volume 7.8; Monocytes # (A) 0.3 k/uL (0-1.0); Monocytes % (A) 7 %; Neutrophils # (A) 2.5 k/uL (1.3-7.7); Neutrophils % (A) 61 %; Platelet Count 199 k/uL (150-450); RBC 4.66 m/uL (3.80-5.40); RDW 14.8 % (11.5-15.5); WBC 4.1 k/uL (3.8-10.6)
[2017-12-07 13:06] LABS: Appearance,Urine Cloudy (Clear); Bacteria,Urine Many /hpf; Bilirubin,Urine Negative (Negative); Blood,Urine Negative (Negative); Color,Urine Yellow; Glucose,Urine (UA) Negative (Negative); Ketones,Urine Negative (Negative); Leukocyte Esterase,Urine Moderate (Negative); Mucus,Urine Few /hpf; Nitrite,Urine Negative (Negative); Protein,Urine 1+ (Negative); Specific Gravity,Urine 1.026 (1.001-1.035); Squamous Epithelial Cell,Urine 24 /hpf (0-4); Urobilinogen,Urine <2.0 mg/dL (<2.0); WBC,Urine 8 /hpf (0-5)
[2017-12-07 13:12] LABS: ALT 27 U/L (9-52); AST 19 U/L (14-36); Albumin 4.2 g/dL (3.5-5.0); Alkaline Phosphatase 89 U/L (38-126); Amylase 56 U/L (30-110); Anion Gap 11 mmol/L; Blood Urea Nitrogen 15 mg/dL (7-17); Calcium 9.1 mg/dL (8.4-10.2); Carbon Dioxide 27 mmol/L (22-30); Chloride 104 mmol/L (98-107); Glucose 107 mg/dL (74-99); Lipase 116 U/L (23-300); Sodium 142 mmol/L (137-145); Total Bilirubin 0.3 mg/dL (0.2-1.3); Total Protein 7.2 g/dL (6.3-8.2)
--- NOTE | 2017-12-07 13:16 | ED ---
General Adult HPI - General Chief complaint: Abdominal Pain Stated complaint: lower abd pain; vomiting Time Seen by Provider: 12/07/17 12:06 Source: patient, RN notes reviewed Mode of arrival: ambulatory Limitations: no limitations - History of Present Illness Initial comments: 22-year-old female presents to the emergency department with a chief complaint of abdominal pain nausea vomiting. She's had this for the past 2 days. She spoke with her [employer] we tested her for and it was negative. She states she continues to have this abdominal pain. There is been nausea vomiting with it. She denies any changes in urination. She states that she was concerned due to the continued pain and continued nausea vomiting so she thought that she should be seen.Patient denies any recent fever, chills, shortness of breath, chest pain, back pain, numbness or tingling, dysuria or hematuria, constipation or diarrhea, headaches or visual changes, or any other current symptoms. - Related Data Home Medications Medication Instructions Recorded Confirmed levETIRAcetam [Keppra] 500 mg PO BID 06/02/16 12/07/17 Previous Rx's Medication Instructions Recorded Ondansetron Odt [Zofran ODT] 4 mg PO Q8HR PRN #20 tab 12/07/17 Allergies Allergy/AdvReac Type Severity Reaction Status Date / Time nut - unspecified Allergy Anaphylaxis Verified 12/07/17 12:24 peanut Allergy Anaphylaxis Verified 12/07/17 12:24 Sulfa (Sulfonamide Allergy Rash/Hives Verified 12/07/17 12:24 Antibiotics) tree nut [Nut] Allergy Anaphylaxis Verified 12/07/17 12:24 Review of Systems ROS Statement: Those systems with pertinent positive or pertinent negative responses have been documented in the HPI. ROS Other: All systems not noted in ROS Statement are negative. 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, anx/bipolar and seizure disorder-last seizure 5 years ago History of Any Multi-Drug Resistant Organisms: None Reported Past Surgical History: No Surgical Hx Reported Additional Past Surgical History / Comment(s): no reported hx Past Anesthesia/Blood Transfusion Reactions: No Reported Reaction Additional Past Anesthesia/Blood Transfusion Reaction / Comment(s): FATHER- TAKES LONGER TO WAKE UP WITH ANESTHESIA" Past Psychological History: Anxiety, Bipolar Smoking Status: Former smoker Past Alcohol Use History: None Reported Past Drug Use History: None Reported - Past Family History Mother Family Medical History: Diabetes Mellitus, Hypertension, Seizure Disorder Additional Family Medical History / Comment(s): SVT Father History Unknown: Yes General Exam - General Exam Comments Initial Comments: General: The patient is awake and alert, in no distress, and does not appear acutely ill. Eye: Pupils are equal, round and reactive to light, extra-ocular movements are intact; there is normal conjunctiva bilaterally. No signs of icterus. Ears, nose, mouth and throat: There are moist mucous membranes and no oral lesions. Neck: The neck is supple, there is no tenderness Cardiovascular: There is a regular rate and rhythm. No murmur, rub or gallop is appreciated. Respiratory: Lungs are clear to auscultation, respirations are non-labored, breath sounds are equal. No wheezes, stridor, rales, or rhonchi. Gastrointestinal: Soft, non-distended, diffusely mildly tender abdomen without masses or organomegaly noted. There is no rebound or guarding present. No CVA tenderness. Bowel sounds are unremarkable. Back: There is no tenderness to palpation in the midline. There is no obvious deformity. No rashes noted. Musculoskeletal: Normal ROM, no tenderness, There is no pedal edema. There is no calf tenderness or swelling. Sensation intact. Pulses equal bilaterally 2+. Neurological: CN II-XII intact, There are no obvious motor or sensory deficits. Coordination appears grossly intact. Speech is normal. Skin: Skin is warm and dry and no rashes or lesions are noted. Psychiatric: Cooperative, appropriate mood & affect, normal judgment. Limitations: no limitations Course Vital Signs 12/07/17 11:56 Temperature 97.8 F Pulse Rate 97 Respiratory 20 Rate Blood Pressure 121/77 O2 Sat by Pulse 96 Oximetry Medical Decision Making - Medical Decision Making 22-year-old female presents for abdominal pain with nausea vomiting. At this time lab work is been reviewed and negative. At this time CAT scan does not show any acute process. We discussed most likely the GI bug. We will start her on Zofran for home. We discussed return parameters and follow-up and all questions. Patient stated that she understood and she is agreement this plan. She will be discharged. - Lab Data Result diagrams: 12/07/17 12:40 12/07/17 12:40 Lab Results 12/07/17 12/07/17 12/07/17 Range/Units 12:40 12:40 12:40 WBC 4.1 (3.8-10.6) k/uL RBC 4.66 (3.80-5.40) m/uL Hgb 13.3 (11.4-16.0) gm/dL Hct 41.4 (34.0-46.0) % MCV 89.0 (80.0-100.0) fL MCH 28.6 (25.0-35.0) pg MCHC 32.2 (31.0-37.0) g/dL RDW 14.8 (11.5-15.5) % Plt Count 199 (150-450) k/uL Neutrophils % 61 % Lymphocytes % 27 % Monocytes % 7 % Eosinophils % 3 % Basophils % 0 % Neutrophils # 2.5 (1.3-7.7) k/uL Lymphocytes # 1.1 (1.0-4.8) k/uL Monocytes # 0.3 (0-1.0) k/uL Eosinophils # 0.1 (0-0.7) k/uL Basophils # 0.0 (0-0.2) k/uL Sodium 142 (137-145) mmol/L Potassium 4.0 (3.5-5.1) mmol/L Chloride 104 (98-107) mmol/L Carbon Dioxide 27 (22-30) mmol/L Anion Gap 11 mmol/L BUN 15 (7-17) mg/dL Creatinine 0.70 (0.52-1.04) mg/dL Est GFR (MDRD) Af Amer >60 (>60 ml/min/1.73 sqM) Est GFR (MDRD) Non-Af >60 (>60 ml/min/1.73 sqM) Glucose 107 H (74-99) mg/dL Calcium 9.1 (8.4-10.2) mg/dL Total Bilirubin 0.3 (0.2-1.3) mg/dL AST 19 (14-36) U/L ALT 27 (9-52) U/L Alkaline Phosphatase 89 (38-126) U/L Total Protein 7.2 (6.3-8.2) g/dL Albumin 4.2 (3.5-5.0) g/dL Amylase 56 (30-110) U/L Lipase 116 (23-300) U/L HCG, Quant <2.4 mIU/mL Urine Color Yellow Urine Appearance Cloudy H (Clear) Urine pH 6.0 (5.0-8.0) Ur Specific [place] 1.026 (1.001-1.035) Urine Protein 1+ H (Negative) Urine Glucose (UA) Negative (Negative) Urine Ketones Negative (Negative) Urine Blood Negative (Negative) Urine Nitrite Negative (Negative) Urine Bilirubin Negative (Negative) Urine Urobilinogen <2.0 (<2.0) mg/dL Ur Leukocyte Esterase Moderate H (Negative) Urine WBC 8 H (0-5) /hpf Ur Squamous Epith Cells 24 H (0-4) /hpf Urine Bacteria Many H (None) /hpf Urine Mucus Few H (None) /hpf - Radiology Data Radiology results: report reviewed, image reviewed Disposition Clinical Impression: Nausea & vomiting, Abdominal pain Disposition: HOME SELF-CARE Condition: Stable Instructions: Abdominal Pain (ED) Additional Instructions: Please use medication as discussed. Please follow up with family doctor if symptoms have not improved over the next two days. Please return to the emergency room if your symptoms increase or worsen or for any other concerns. Prescriptions: Ondansetron Odt [Zofran ODT] 4 mg PO Q8HR PRN #20 tab PRN Reason: Nausea Referrals: Lawrence Bueno MD [Primary Care Provider] - 1-2 days Time of Disposition: 14:29
[2017-12-07 13:28] LABS: HCG,Quantitative Serum <2.4 mIU/mL
[2017-12-07] MEDS ORDERED: RX INFO: IV CONTRAST WAS GIVEN 1 EACH MISC MISCELLANE PRN (13:42)
--- NOTE | 2017-12-07 14:25 | CT ---
EXAMINATION TYPE: CT abdomen pelvis w con DATE OF EXAM: 12/07/2017 HISTORY: Vomiting for [address] DLP: 564.8mGycm Automated Exposure Control for Dose Reduction was Utilized. CONTRAST: CT scan of the abdomen and pelvis is performed without oral but with IV Contrast, patient injected wi th 100 mL of Omnipaque 300. COMPARISON: CT abdomen and pelvis December 16, 2014 FINDINGS: LUNG BASES: No significant abnormality is appreciated. LIVER/GB: No significant abnormality is appreciated. PANCREAS: No significant abnormality is seen. SPLEEN: There is 1.8 cm splenule in splenic hilum redemonstrated ADRENALS: No significant abnormality is seen. KIDNEYS: No significant abnormality is seen. BOWEL: Evaluation of bowel is slightly suboptimal secondary to lack of enteric contrast. There is no suspicious small or large bowel dilatation. There is low lying cecum into the right pelvis. Appendix is felt within normal limits ascending in the midline of the upper pelvis. UTERUS/ADNEXA: Anteverted uterus is seen. Small to moderate amount of free fluid in pelvic cul-de-sac axial image 73 is noted. Both ovaries are seen near axial image 72 and not enlarged. LYMPH NODES: No greater than 1cm abdominal or pelvic lymph nodes are appreciated. OSSEOUS STRUCTURES: Mild facet arthropathy lower lumbar levels is present. OTHER: No significant additional abnormality is seen. IMPRESSION: No bowel obstruction is seen. Small to moderate amount of free fluid in pelvic cul-de-sac , nonspecific finding. Otherwise no significant finding is seen to account for patient's clinical sym ptoms.
[2017-12-07] MEDS ORDERED: METOCLOPRAMIDE 5 MG/ML 2 ML VIAL IVP STA (14:30)
[2017-12-07 14:50] VITALS: BP 105/61; PULSE 72; RESP 18
== END 2017-12-07 14:50 | disposition home or self-care (01) ==
LOC: EC 11:51
DX: R11.2 Nausea with vomiting, unspecified (principal); R10.9 Unspecified abdominal pain; G40.909 Epilepsy, unspecified, not intractable, without status epilepticus; Z87.891 Personal history of nicotine dependence; Z79.899 Other long term (current) drug therapy; Z88.2 Allergy status to sulfonamides; Z91.010 Allergy to peanuts; Z91.018 Allergy to other foods
CPT/HCPCS: 36415; 80053; 82150; 83690; 85025; 81001; 84702; 87086; 74177; 99284; 96374; 96375; 96361 ×2; J2765; J2405; Q9967; 87077; 87186

== ENCOUNTER 2018-01-21 15:13 | Emergency (ER) | payer OTHER ==
[2018-01-21 15:28] VITALS: RESP 18
[2018-01-21 16:16] LABS: Basophils % (A) 0 %; Eosinophils # (A) 0.1 k/uL (0-0.7); Eosinophils % (A) 1 %; HCT 39.2 % (34.0-46.0); HGB 13.4 gm/dL (11.4-16.0); Lymphocytes % (A) 21 %; MCH 29.2 pg (25.0-35.0); MCHC 34.2 g/dL (31.0-37.0); MCV 85.4 fL (80.0-100.0); Mean Platelet Volume 7.8; Monocytes # (A) 0.4 k/uL (0-1.0); Monocytes % (A) 5 %; Neutrophils # (A) 6.7 k/uL (1.3-7.7); Neutrophils % (A) 71 %; Platelet Count 241 k/uL (150-450); RBC 4.59 m/uL (3.80-5.40); RDW 14.8 % (11.5-15.5); WBC 9.4 k/uL (3.8-10.6)
[2018-01-21 16:26] LABS: ALT 26 U/L (9-52); AST 17 U/L (14-36); Albumin 4.2 g/dL (3.5-5.0); Alkaline Phosphatase 86 U/L (38-126); Amylase 62 U/L (30-110); Anion Gap 13 mmol/L; Blood Urea Nitrogen 16 mg/dL (7-17); Calcium 9.4 mg/dL (8.4-10.2); Carbon Dioxide 26 mmol/L (22-30); Chloride 104 mmol/L (98-107); Glucose 83 mg/dL (74-99); Lipase 140 U/L (23-300); Potassium 4.1 mmol/L (3.5-5.1); Sodium 143 mmol/L (137-145); Total Bilirubin <0.1 mg/dL (0.2-1.3); Total Protein 7.2 g/dL (6.3-8.2)
[2018-01-21 16:33] LABS: Appearance,Urine Cloudy (Clear); Bilirubin,Urine Negative (Negative); Blood,Urine Negative (Negative); Color,Urine Yellow; Glucose,Urine (UA) Negative (Negative); Ketones,Urine Negative (Negative); Leukocyte Esterase,Urine Large (Negative); Mucus,Urine Rare /hpf; Nitrite,Urine Negative (Negative); Protein,Urine Trace (Negative); RBC,Urine 3 /hpf (0-5); Specific Gravity,Urine 1.026 (1.001-1.035); Squamous Epithelial Cell,Urine 36 /hpf (0-4); Urobilinogen,Urine <2.0 mg/dL (<2.0); WBC,Urine 10 /hpf (0-5)
[2018-01-21] MEDS ORDERED: ACETAMINOPHEN TAB 500 MG TAB PO STA (19:25)
[2018-01-21] MEDS ORDERED: METOCLOPRAMIDE 10 MG TAB PO STA (19:43)
--- NOTE | 2018-01-21 19:48 | ED ---
Abdominal Pain HPI - General Chief Complaint: Abdominal Pain Stated Complaint: abdominal pain/nausea Time Seen by Provider: 01/21/18 19:18 Source: patient, RN notes reviewed, old records reviewed Mode of arrival: ambulatory Limitations: no limitations - History of Present Illness Initial Comments: This patient is a 22-year-old feel presents emergency room with a chief complaint of lower abdominal pain for the past 5 days. She reports that she's been feeling nauseated and has had a few episodes of vomiting. She relates that she has had no changes in urination or bowel habits. She reports her last menstrual cycle was at the end of December. Patient states that she has had no fevers or chills. She's had vomiting a few days ago but none today. She reports that she needs to drink she feels nauseated. - Related Data Home Medications Medication Instructions Recorded Confirmed levETIRAcetam [Keppra] 500 mg PO BID 06/02/16 01/21/18 Previous Rx's Medication Instructions Recorded Cephalexin [Keflex] 500 mg PO Q8HR #21 cap 01/21/18 Dnu-Lcse-Gxhiw Acid 1 cap PO DAILY #20 cap 01/21/18 [-U Capsule (formulary)] Allergies Allergy/AdvReac Type Severity Reaction Status Date / Time nut - unspecified Allergy Anaphylaxis Verified 01/21/18 19:25 peanut Allergy Anaphylaxis Verified 01/21/18 19:25 Sulfa (Sulfonamide Allergy Rash/Hives Verified 01/21/18 19:25 Antibiotics) tree nut [Nut] Allergy Anaphylaxis Verified 01/21/18 19:25 Review of Systems ROS Statement: Those systems with pertinent positive or pertinent negative responses have been documented in the HPI. ROS Other: All systems not noted in ROS Statement are negative. 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, anx/bipolar and seizure disorder-last seizure 5 years ago History of Any Multi-Drug Resistant Organisms: None Reported Past Surgical History: No Surgical Hx Reported Additional Past Surgical History / Comment(s): no reported hx Past Anesthesia/Blood Transfusion Reactions: No Reported Reaction Additional Past Anesthesia/Blood Transfusion Reaction / Comment(s): FATHER- TAKES LONGER TO WAKE UP WITH ANESTHESIA" Past Psychological History: Anxiety, Bipolar Smoking Status: Former smoker Past Alcohol Use History: None Reported Past Drug Use History: None Reported - Past Family History Mother Family Medical History: Diabetes Mellitus, Hypertension, Seizure Disorder Additional Family Medical History / Comment(s): SVT Father History Unknown: Yes General Exam - General Exam Comments Initial Comments: 22-year-old female. Alert and oriented. No distress. Limitations: no limitations General appearance: alert, in no apparent distress Head exam: Present: atraumatic, normocephalic, normal inspection Eye exam: Present: normal appearance, PERRL, EOMI. Absent: scleral icterus, conjunctival injection, periorbital swelling ENT exam: Present: normal exam, mucous membranes moist Neck exam: Present: normal inspection. Absent: tenderness, meningismus, lymphadenopathy Respiratory exam: Present: normal lung sounds bilaterally. Absent: respiratory distress, wheezes, rales, rhonchi, stridor Cardiovascular Exam: Present: regular rate, normal rhythm, normal heart sounds. Absent: systolic murmur, diastolic murmur, rubs, gallop, clicks GI/Abdominal exam: Present: soft, tenderness (Minimal suprapubic tenderness.), normal bowel sounds. Absent: distended, guarding, rebound, rigid Extremities exam: Present: normal inspection, full ROM, normal capillary refill. Absent: tenderness, pedal edema, joint swelling, calf tenderness Back exam: Present: normal inspection Neurological exam: Present: alert, oriented X3, CN II-XII intact Psychiatric exam: Present: normal affect, normal mood Course Vital Signs 01/21/18 15:24 Temperature 98.5 F Pulse Rate 81 Respiratory 18 Rate Blood Pressure 157/93 O2 Sat by Pulse 96 Oximetry Medical Decision Making - Medical Decision Making 22-year-old female presents emergency room and to the chief complaint of nausea and lower abdominal pain for the past 5 days. She states she had vomiting a few days ago. Patient is found to be , she did not know this prior to coming to emergency department. We the rest of her lab work was reviewed and normal. Rechecking a serum hCG and AB Rh. Patient is undergoing transvaginal ultrasound to confirm intrauterine . She does relate that her last menstrual period was towards the beginning of December she does not know exactly how far along she could be. She denies any vaginal bleeding or spotting. At this time patient is O+. Serum hCG is 123. Formula malignancy of at this time. Ultrasound was reviewed and shows no significant interest. IVP is not identified at this time. Discusses too early. Discussed she can follow-up with her [facility] and repeat hCG in a few days. Patient agrees treatment plan will comply. Return parameters were discussed. - Lab Data Result diagrams: 01/21/18 16:00 01/21/18 16:00 Lab Results 01/21/18 01/21/18 01/21/18 Range/Units 16:00 16:00 16:00 WBC 9.4 (3.8-10.6) k/uL RBC 4.59 (3.80-5.40) m/uL Hgb 13.4 (11.4-16.0) gm/dL Hct 39.2 (34.0-46.0) % MCV 85.4 (80.0-100.0) fL MCH 29.2 (25.0-35.0) pg MCHC 34.2 (31.0-37.0) g/dL RDW 14.8 (11.5-15.5) % Plt Count 241 (150-450) k/uL Neutrophils % 71 % Lymphocytes % 21 % Monocytes % 5 % Eosinophils % 1 % Basophils % 0 % Neutrophils # 6.7 (1.3-7.7) k/uL Lymphocytes # 2.0 (1.0-4.8) k/uL Monocytes # 0.4 (0-1.0) k/uL Eosinophils # 0.1 (0-0.7) k/uL Basophils # 0.0 (0-0.2) k/uL Sodium 143 (137-145) mmol/L Potassium 4.1 (3.5-5.1) mmol/L Chloride 104 (98-107) mmol/L Carbon Dioxide 26 (22-30) mmol/L Anion Gap 13 mmol/L BUN 16 (7-17) mg/dL Creatinine 0.74 (0.52-1.04) mg/dL Est GFR (CKD-EPI)AfAm >90 (>60 ml/min/1.73 sqM) Est GFR (CKD-EPI)NonAf >90 (>60 ml/min/1.73 sqM) Glucose 83 (74-99) mg/dL Calcium 9.4 (8.4-10.2) mg/dL Total Bilirubin <0.1 L (0.2-1.3) mg/dL AST 17 (14-36) U/L ALT 26 (9-52) U/L Alkaline Phosphatase 86 (38-126) U/L Total Protein 7.2 (6.3-8.2) g/dL Albumin 4.2 (3.5-5.0) g/dL Amylase 62 (30-110) U/L Lipase 140 (23-300) U/L HCG, Quant mIU/mL Urine Color Urine Appearance (Clear) Urine pH (5.0-8.0) Ur Specific [place] (1.001-1.035) Urine Protein (Negative) Urine Glucose (UA) (Negative) Urine Ketones (Negative) Urine Blood (Negative) Urine Nitrite (Negative) Urine Bilirubin (Negative) Urine Urobilinogen (<2.0) mg/dL Ur Leukocyte Esterase (Negative) Urine RBC (0-5) /hpf Urine WBC (0-5) /hpf Ur Squamous Epith Cells (0-4) /hpf Urine Mucus (None) /hpf Urine HCG, Qual Detected (Not Detectd) Blood Type Blood Type Recheck 01/21/18 01/21/18 01/21/18 Range/Units 16:00 16:00 16:00 WBC (3.8-10.6) k/uL RBC (3.80-5.40) m/uL Hgb (11.4-16.0) gm/dL Hct (34.0-46.0) % MCV (80.0-100.0) fL MCH (25.0-35.0) pg MCHC (31.0-37.0) g/dL RDW (11.5-15.5) % Plt Count (150-450) k/uL Neutrophils % % Lymphocytes % % Monocytes % % Eosinophils % % Basophils % % Neutrophils # (1.3-7.7) k/uL Lymphocytes # (1.0-4.8) k/uL Monocytes # (0-1.0) k/uL Eosinophils # (0-0.7) k/uL Basophils # (0-0.2) k/uL Sodium (137-145) mmol/L Potassium (3.5-5.1) mmol/L Chloride (98-107) mmol/L Carbon Dioxide (22-30) mmol/L Anion Gap mmol/L BUN (7-17) mg/dL Creatinine (0.52-1.04) mg/dL Est GFR (CKD-EPI)AfAm (>60 ml/min/1.73 sqM) Est GFR (CKD-EPI)NonAf (>60 ml/min/1.73 sqM) Glucose (74-99) mg/dL Calcium (8.4-10.2) mg/dL Total Bilirubin (0.2-1.3) mg/dL AST (14-36) U/L ALT (9-52) U/L Alkaline Phosphatase (38-126) U/L Total Protein (6.3-8.2) g/dL Albumin (3.5-5.0) g/dL Amylase (30-110) U/L Lipase (23-300) U/L HCG, Quant 129.3 mIU/mL Urine Color Yellow Urine Appearance Cloudy H (Clear) Urine pH 6.0 (5.0-8.0) Ur Specific [place] 1.026 (1.001-1.035) Urine Protein Trace H (Negative) Urine Glucose (UA) Negative (Negative) Urine Ketones Negative (Negative) Urine Blood Negative (Negative) Urine Nitrite Negative (Negative) Urine Bilirubin Negative (Negative) Urine Urobilinogen <2.0 (<2.0) mg/dL Ur Leukocyte Esterase Large H (Negative) Urine RBC 3 (0-5) /hpf Urine WBC 10 H (0-5) /hpf Ur Squamous Epith Cells 36 H (0-4) /hpf Urine Mucus Rare H (None) /hpf Urine HCG, Qual (Not Detectd) Blood Type O Positive Blood Type Recheck No - Radiology Data Radiology results: report reviewed No evidence of gestational sac. Minimal free fluid in the cul-de-sac could be physiologic. Thickened endometrium noted. Atelectasis are both reviewed and negative for any cysts or abnormalities. Disposition Clinical Impression: Early stage of , Abdominal pain affecting , UTI (urinary tract infection) Disposition: HOME SELF-CARE Condition: Good Instructions: Abdominal Pain (ED) Additional Instructions: Patient has a follow-up with [facility]. Repeat her hCG in the next 2 days. Take the medication as prescribed. Return to the emergency department if any alarming signs or symptoms occur. Prescriptions: Cephalexin [Keflex] 500 mg PO Q8HR #21 cap Jdz-Gvxf-Rynza Acid [-U Capsule (formulary)] 1 cap PO DAILY # 20 cap Referrals: Lawrence Bueno MD [Primary Care Provider] - 1-2 days Time of Disposition: 20:56
--- NOTE | 2018-01-21 20:51 | US ---
EXAMINATION TYPE: Transabdominal DATE OF EXAM: 01/14/18 COMPARISON: NONE CLINICAL HISTORY: Pain. cramping. EXAM PERFORMED: Transabdominal (TA) EXAM MEASUREMENTS: GESTATIONAL AGE / DATING Physician Established: Not yet established Dates by LMP: LMP unknown Dates by First Scan: No previous this is first scan Dates by Current Scan for: No IUP seen at this time MATERNAL ANATOMY Uterus: Right Ovary: 3.5 x 2.3 x 2.0 cm Left Ovary: 2.5 x 1.5 x 1.8 cm Post CDS / Adnexa: wnl Presence of free fluid: yes Presence of corpus luteal cyst: no GESTATION / SURVEY IUP: No IUP seen at this time Beta HcG (if available): Not available at this time IMPRESSION: No adnexal mass. No evidence of a gestational sac. Minimal free fluid in the cul-de-sac could be physiologic. Thickene d endometrium.
[2018-01-21 21:06] VITALS: BP 131/70; PULSE 76; TEMP 98.8
== END 2018-01-21 21:11 | disposition home or self-care (01) ==
LOC: EC 15:13
DX: O23.41 Unspecified infection of urinary tract in pregnancy, first trimester (principal); O26.891 Other specified pregnancy related conditions, first trimester; R10.30 Lower abdominal pain, unspecified; O99.351 Diseases of the nervous system complicating pregnancy, first trimester; G40.909 Epilepsy, unspecified, not intractable, without status epilepticus; Z3A.01 Less than 8 weeks gestation of pregnancy; Z87.891 Personal history of nicotine dependence; Z79.899 Other long term (current) drug therapy; Z91.010 Allergy to peanuts; Z91.018 Allergy to other foods; Z88.2 Allergy status to sulfonamides
CPT/HCPCS: 36415; 76801; 80053; 81001; 81025; 82150; 83690; 84702; 85025; 86900; 86901; 99284

== ENCOUNTER → 2018-01-23 | Outpatient (CLI) | payer OTHER | END | disposition home or self-care (01) | LOC: LABWHC1 15:34 | PROVIDERS: ATTEND Obstetrics & Gynecology | DX: Z34.80 Encounter for supervision of other normal pregnancy, unspecified trimester (principal); Z3A.00 Weeks of gestation of pregnancy not specified | CPT/HCPCS: 36415; 84702 ==

== ENCOUNTER → 2018-02-03 | Outpatient (CLI) | payer OTHER | END | disposition home or self-care (01) | LOC: LABWHC1 16:37 | PROVIDERS: ATTEND Obstetrics & Gynecology | DX: Z34.80 Encounter for supervision of other normal pregnancy, unspecified trimester (principal); Z3A.00 Weeks of gestation of pregnancy not specified | CPT/HCPCS: 36415; 84702 ==

== ENCOUNTER → 2018-02-10 | Outpatient (CLI) | payer OTHER ==
--- NOTE | 2018-02-10 16:07 | US ---
EXAMINATION TYPE: Transabdominal DATE OF EXAM: 01/14/18 COMPARISON: US 9 days ago. CLINICAL HISTORY: Follow to abn Z36: EXAM PERFORMED: Transvaginal (TV) [to better see pole for heart rate] and Transabdominal (TA) EXAM MEASUREMENTS: GESTATIONAL AGE / DATING Physician Established: Not yet established Dates by LMP: LMP unknown Dates by First Scan: (7 weeks/0 days) EDC: 09/28/2018 Dates by Current Scan for: 6 (weeks/5 days) EDC: 10/01/2018 MATERNAL ANATOMY Uterus: 11.8 x 6.5 x 4.6cm; couple of Nabothian cysts in cervix Right Ovary: 3.2 x 2.4 x 2.2cm Left Ovary: 1.8 x 2.1 x 2.8cm Post CDS / Adnexa: wnl Presence of free fluid: no Presence of corpus luteal cyst: in right ovary = 1.8 x 2.1 x 1.2cm Presence of subchorionic bleed: small anechoic area noted superior subchorion = 0.9 x 1.0 x 0.4cm GESTATION / SURVEY CRL: 0.8cm (6 weeks/5 days) Yolk Sac (normal less than 6mm): 3.0mm Heart Rate: 114 bpm Rhythm: Normal IUP: Viable IUP Date of LMP: unknown Beta HcG (if available): NA Single live intrauterine gestation is seen currently as gestational sac, yolk sac, and pole are identified on current study. No free fluid is seen in pelvic cul-de-sac. There is small curvilinear fluid collection towards end of study felt to reflect small hematoma measuring up to 1.0 cm long axis . A few nabothian cysts are marked in cervix by the technologist. Both ovaries are present. Within right ovary there is rim hypervascular 2.1 cm lesion likely reflecti ng corpus luteal cyst. IMPRESSION: Findings consistent with intrauterine are now confirmed, mean crown-rump length is 0.8 cm c orresponding to 6 week 5 day old fetus.
== END | disposition home or self-care (01) ==
LOC: RADUSWWP 14:51
PROVIDERS: ATTEND Obstetrics & Gynecology
DX: Z36.9 Encounter for antenatal screening, unspecified (principal)
CPT/HCPCS: 76801; 76817

== ENCOUNTER 2018-02-27 22:30 | Emergency (ER) | payer OTHER ==
[2018-02-27 22:45] VITALS: BP 133/79; PULSE 83; RESP 16; TEMP 98.2
--- NOTE | 2018-02-27 23:19 | ED ---
Abdominal Pain HPI - General Chief Complaint: Abdominal Pain Stated Complaint: 9 wks preg/cramping Time Seen by Provider: 02/27/18 22:54 Source: patient Mode of arrival: ambulatory Limitations: no limitations - History of Present Illness Initial Comments: This patient is 22-year-old woman presenting to be evaluated for a feeling of cramping and pressure in the suprapubic area that is been going on today. Patient denies any injury. She is not aware of any other inciting factor. She states that the sensation as constant but gets a little worse if she attempts to sit up. She has not noted any relieving factors. She has not noted changes in urination or bowel movements. She states that she is approximately 9 weeks and has not noticed any discharge or bleeding. She sees Dr.Kuester RIOJAS Complaint: abdominal pain -: hour(s) Location: diffuse Radiation: suprapubic Migration to: no migration Severity: moderate Quality: cramping, fullness Consistency: constant Improves With: nothing Worsens With: nothing Associated Symptoms: denies other symptoms - Related Data Patient : Yes Number of weeks : 9 Previous Rx's Medication Instructions Recorded Cct-Vwrg-Nhuaf Acid 1 cap PO DAILY #20 cap 01/21/18 [-U Capsule (formulary)] Amoxicillin 500 mg PO Q8H #21 capsule 02/28/18 Allergies Allergy/AdvReac Type Severity Reaction Status Date / Time nut - unspecified Allergy Anaphylaxis Verified 02/27/18 22:50 peanut Allergy Anaphylaxis Verified 02/27/18 22:50 Sulfa (Sulfonamide Allergy Rash/Hives Verified 02/27/18 22:50 Antibiotics) tree nut [Nut] Allergy Anaphylaxis Verified 02/27/18 22:50 Review of Systems ROS Statement: Those systems with pertinent positive or pertinent negative responses have been documented in the HPI. ROS Other: All systems not noted in ROS Statement are negative. Constitutional: Denies: fever, chills Respiratory: Denies: cough, dyspnea Cardiovascular: Denies: chest pain, palpitations, edema Gastrointestinal: Reports: as per HPI, abdominal pain. Denies: nausea, vomiting , diarrhea, constipation Genitourinary: Denies: dysuria, hematuria, abnormal menses Musculoskeletal: Denies: back pain Skin: Denies: rash Neurological: Denies: headache, weakness, numbness 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, anx/bipolar and seizure disorder-last seizure 5 years ago History of Any Multi-Drug Resistant Organisms: None Reported Past Surgical History: No Surgical Hx Reported Additional Past Surgical History / Comment(s): no reported hx Past Anesthesia/Blood Transfusion Reactions: No Reported Reaction Additional Past Anesthesia/Blood Transfusion Reaction / Comment(s): FATHER- TAKES LONGER TO WAKE UP WITH ANESTHESIA" Past Psychological History: Anxiety, Bipolar Smoking Status: Former smoker Past Alcohol Use History: None Reported Past Drug Use History: None Reported - Past Family History Mother Family Medical History: Diabetes Mellitus, Hypertension, Seizure Disorder Additional Family Medical History / Comment(s): SVT Father History Unknown: Yes General Exam Limitations: no limitations General appearance: alert, in no apparent distress Head exam: Present: normocephalic Eye exam: Present: normal appearance. Absent: scleral icterus, conjunctival injection ENT exam: Present: normal oropharynx Neck exam: Present: normal inspection Respiratory exam: Present: normal lung sounds bilaterally. Absent: respiratory distress, wheezes, rales, rhonchi, stridor Cardiovascular Exam: Present: regular rate, normal rhythm, normal heart sounds. Absent: systolic murmur, diastolic murmur, rubs, gallop GI/Abdominal exam: Present: soft. Absent: distended, tenderness, guarding, rebound, rigid External exam: Present: normal external exam Speculum exam: Present: normal speculum exam. Absent: erythema, vaginal discharge, cervical discharge, vaginal bleeding, foreign body, tissue, laceration By manual exam: Present: normal by manual exam. Absent: cervical motion tenderness, adnexal tenderness, adnexal mass, uterine enlargement, uterine tenderness Extremities exam: Present: normal inspection, normal capillary refill. Absent: pedal edema, calf tenderness Back exam: Present: normal inspection. Absent: CVA tenderness (R), CVA tenderness (L) Neurological exam: Present: alert Skin exam: Present: warm, dry, intact, normal color. Absent: rash Course Vital Signs 02/27/18 22:42 Temperature 98.2 F Pulse Rate 83 Respiratory 16 Rate Blood Pressure 133/79 O2 Sat by Pulse 98 Oximetry Medical Decision Making - Lab Data Lab Results 02/27/18 Range/Units 22:54 Urine Color Yellow Urine Appearance Cloudy H (Clear) Urine pH 6.5 (5.0-8.0) Ur Specific [place] 1.017 (1.001-1.035) Urine Protein Negative (Negative) Urine Glucose (UA) Negative (Negative) Urine Ketones Negative (Negative) Urine Blood Negative (Negative) Urine Nitrite Negative (Negative) Urine Bilirubin Negative (Negative) Urine Urobilinogen <2.0 (<2.0) mg/dL Ur Leukocyte Esterase Large H (Negative) Urine RBC 2 (0-5) /hpf Urine WBC 14 H (0-5) /hpf Ur Squamous Epith Cells 5 H (0-4) /hpf Amorphous Sediment Rare H (None) /hpf Urine Mucus Rare H (None) /hpf Disposition Clinical Impression: Subchorionic hematoma, Urinary tract infection Disposition: HOME SELF-CARE Condition: Good Instructions: Urinary Tract Infection in (ED), Subchorionic Hemorrhage (ED) Prescriptions: Amoxicillin 500 mg PO Q8H #21 capsule Is patient prescribed a controlled substance at d/c from ED?: No Referrals: Lawrence Bueno MD [Primary Care Provider] - 1-2 days
[2018-02-27 23:21] LABS: Amorphous Sediment,Urine Rare /hpf; Appearance,Urine Cloudy (Clear); Bilirubin,Urine Negative (Negative); Blood,Urine Negative (Negative); Color,Urine Yellow; Glucose,Urine (UA) Negative (Negative); Ketones,Urine Negative (Negative); Leukocyte Esterase,Urine Large (Negative); Mucus,Urine Rare /hpf; Nitrite,Urine Negative (Negative); PH, Urine 6.5 (5.0-8.0); Protein,Urine Negative (Negative); RBC,Urine 2 /hpf (0-5); Specific Gravity,Urine 1.017 (1.001-1.035); Squamous Epithelial Cell,Urine 5 /hpf (0-4); Urobilinogen,Urine <2.0 mg/dL (<2.0); WBC,Urine 14 /hpf (0-5)
--- NOTE | 2018-02-28 00:25 | US ---
EXAMINATION TYPE: Transabdominal DATE OF EXAM: 01/14/18 COMPARISON: US 2017 CLINICAL HISTORY: Pain. Cramping x 1 day, vaginal discharge, 3, para 2 EXAM PERFORMED: Transabdominal (TA) EXAM MEASUREMENTS: GESTATIONAL AGE / DATING Physician Established: (9 weeks/2 days) EDC: 10/01/2018 Dates by LMP: Unknown Dates by First Scan: ( 9 weeks/4 days) EDC: 09/28/2018 Dates by Current Scan for: (9 weeks/4 days) EDC: 09/28/2018 MATERNAL ANATOMY Uterus: 10.6 x 7.5 x 8.1cm, anteverted Right Ovary: 2.7 x 2.3 x 1.9cm Left Ovary: 3.0 x 1.8 x 2.1cm Post CDS / Adnexa: wnl Presence of free fluid: no Presence of corpus luteal cyst: right ovary: 2.2 x 1.7 x 1.5cm hypoechoic area, probably corpus luteu m Presence of subchorionic bleed: 1.9 x 0.9 x 2.1cm complex area inferior to gestational sac, probable subchorionic bleed GESTATION / SURVEY CRL: 2.7cm (9 weeks/4 days) Yolk Sac (normal less than 6mm): 4.3mm Heart Rate: 184 bpm Rhythm: Normal IUP: Viable IUP Date of LMP: Unknown Beta HcG (if available): Not available at time of exam Viable single IUP measuring 9 weeks 4 days with a heart rate of 184bpm and an estimated delivery date of 09/28/2018. IMPRESSION: Ultrasound gestational age is 9 weeks and 4 days. No complicating process seen.
[2018-02-28] MEDS ORDERED: AMOXICILLIN 500 MG CAP PO STA (00:32)
[2018-02-28] MEDS ORDERED: ACETAMINOPHEN TAB 325 MG TAB PO STA (00:32)
== END 2018-02-28 00:49 | disposition home or self-care (01) ==
LOC: EC 22:30
DX: O20.8 Other hemorrhage in early pregnancy (principal); O23.41 Unspecified infection of urinary tract in pregnancy, first trimester; Z3A.09 9 weeks gestation of pregnancy; Z87.891 Personal history of nicotine dependence; Z91.010 Allergy to peanuts; Z91.018 Allergy to other foods; Z88.2 Allergy status to sulfonamides
CPT/HCPCS: 36415; 76801; 81001; 84702; 86900; 86901; 99284

== ENCOUNTER 2018-03-14 18:02 | Emergency (ER) | payer OTHER ==
[2018-03-14] MEDS ORDERED: SODIUM CHLORIDE 0.9% 1,000 ML IV STA (18:54)
[2018-03-14 19:19] LABS: Basophils % (A) 0 %; Eosinophils # (A) 0.1 k/uL (0-0.7); Eosinophils % (A) 1 %; HCT 38.9 % (34.0-46.0); HGB 13.1 gm/dL (11.4-16.0); Lymphocytes # (A) 1.8 k/uL (1.0-4.8); Lymphocytes % (A) 20 %; MCH 29.7 pg (25.0-35.0); MCHC 33.8 g/dL (31.0-37.0); MCV 87.9 fL (80.0-100.0); Mean Platelet Volume 8.1; Monocytes # (A) 0.4 k/uL (0-1.0); Monocytes % (A) 5 %; Neutrophils # (A) 6.3 k/uL (1.3-7.7); Neutrophils % (A) 72 %; Platelet Count 195 k/uL (150-450); RBC 4.42 m/uL (3.80-5.40); RDW 14.5 % (11.5-15.5); WBC 8.7 k/uL (3.8-10.6)
--- NOTE | 2018-03-14 19:20 | ED ---
Dizziness HPI - General Chief Complaint: Dizziness Stated Complaint: Dizziness & SOB 11 weeks and fell Time Seen by Provider: 03/14/18 18:19 Source: patient Mode of arrival: wheelchair Limitations: no limitations - History of Present Illness Initial Comments: 22-year-old female patient presented to the emergency department today for evaluation of dizziness. Patient states that she woke from sleep around 0400 feeling short of breath with some chest tightness. She states that she became dizzy shortly after. States that the room was spinning for quite some time. States that it resolved somewhat throughout the day and then returned this evening. Patient states that she did fall this morning onto her bed from the dizziness and then once again this evening. States that she did fall with her arms outstretched. She denies hitting her head or losing consciousness with this. Denies any injury from this. Patient states that she is 11 weeks 2 days . States that she has been having abdominal pain and intermittent spotting since beginning of the . Patient states this was initially a triplet gestation with 2 losses at the beginning of the . She is A1 (with one twin gestation with one loss, and one spontaneous ). She denies any abnormal vaginal bleeding or discharge today. States that she did have severe abdominal pain that doubled her over yesterday however the pain has receded to her usual discomfort today. She denies any fevers or chills. Denies any nasal congestion, cough, or ear pain. States that she did develop a headache this evening. She denies any numbness, tingling, weakness, nausea, or vomiting. Denies any constipation or diarrhea. Patient denies any recent rash, fever, chills, shortness breath, chest pain, back pain, hematuria, dysuria, urinary urgency, urinary frequency, visual changes, or any other complaints. She is currently being treated for urinary tract infection. - Related Data Previous Rx's Medication Instructions Recorded Qrr-Wwne-Qhrmr Acid 1 cap PO DAILY #20 cap 01/21/18 [-U Capsule (formulary)] Amoxicillin 500 mg PO Q8H #21 capsule 02/28/18 Allergies Allergy/AdvReac Type Severity Reaction Status Date / Time nut - unspecified Allergy Anaphylaxis Verified 03/14/18 19:06 peanut Allergy Anaphylaxis Verified 03/14/18 19:06 Sulfa (Sulfonamide Allergy Rash/Hives Verified 03/14/18 19:06 Antibiotics) tree nut [Nut] Allergy Anaphylaxis Verified 03/14/18 19:06 Review of Systems ROS Statement: Those systems with pertinent positive or pertinent negative responses have been documented in the HPI. ROS Other: All systems not noted in ROS Statement are negative. 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, anx/bipolar and seizure disorder-last seizure 5 years ago History of Any Multi-Drug Resistant Organisms: None Reported Past Surgical History: No Surgical Hx Reported Additional Past Surgical History / Comment(s): no reported hx Past Anesthesia/Blood Transfusion Reactions: No Reported Reaction Additional Past Anesthesia/Blood Transfusion Reaction / Comment(s): FATHER- TAKES LONGER TO WAKE UP WITH ANESTHESIA" Past Psychological History: Anxiety, Bipolar Smoking Status: Former smoker Past Alcohol Use History: None Reported Past Drug Use History: None Reported - Past Family History Mother Family Medical History: Diabetes Mellitus, Hypertension, Seizure Disorder Additional Family Medical History / Comment(s): SVT Father History Unknown: Yes General Exam Limitations: no limitations General appearance: alert, in no apparent distress, other (this is a well- developed, well-nourished adult female patient in no acute distress. Vital signs upon presentation are temperature 98.7F, pulse 94, respirations 16, blood pressure 140/67, pulse ox 97% on room air.) Eye exam: Present: normal appearance, PERRL, EOMI. Absent: scleral icterus, conjunctival injection, periorbital swelling ENT exam: Present: normal exam, normal oropharynx, mucous membranes moist Respiratory exam: Present: normal lung sounds bilaterally. Absent: respiratory distress, wheezes, rales, rhonchi, stridor Cardiovascular Exam: Present: regular rate, normal rhythm, normal heart sounds. Absent: systolic murmur, diastolic murmur, rubs, gallop, clicks GI/Abdominal exam: Present: soft, tenderness (Lower abdominal pain), normal bowel sounds. Absent: distended, guarding, rebound, rigid Back exam: Present: normal inspection. Absent: CVA tenderness (R), CVA tenderness (L) Neurological exam: Present: alert, oriented X3, CN II-XII intact Psychiatric exam: Present: normal affect, normal mood Skin exam: Present: warm, dry, intact, normal color. Absent: rash Course Vital Signs 03/14/18 03/14/18 03/14/18 18:11 20:23 22:10 Temperature 98.7 F 97.6 F 97.8 F Pulse Rate 94 69 98 Respiratory 16 18 18 Rate Blood Pressure 140/67 120/73 119/73 O2 Sat by Pulse 97 100 96 Oximetry EKG Findings - EKG Comments: EKG Findings:: EKG obtained in 191 shows normal sinus rhythm with a ventricular rate of 75, ME interval 168, QR yazdanism 74, QTC 394, QTC 439. No evidence of ST elevation or depression. Medical Decision Making - Medical Decision Making 22-year-old female patient presented to the emergency department today for complaints of dizziness and an episode of shortness of breath at 4:00 this morning. Physical examination is unremarkable. Abdomen is soft and nontender. Lungs are clear to auscultation with good air movement. EKG shows normal sinus rhythm. Labs reviewed and are unremarkable. Ultrasound of the fetus was obtained and showed a normal intrauterine measuring 11 weeks 5 days with normal progression since last ultrasound. I did discuss findings and results with the patient. She is still feeling somewhat dizzy but is feeling better. I did discuss results. Patient be discharged home to follow-up with her [employer] [employer] [facility] as soon as possible. Return parameters discussed in detail. She verbalizes understanding and agrees with this plan. - Lab Data Result diagrams: 03/14/18 19:08 03/14/18 19:08 Lab Results 03/14/18 03/14/18 03/14/18 Range/Units 19:08 19:08 19:08 WBC 8.7 (3.8-10.6) k/uL RBC 4.42 (3.80-5.40) m/uL Hgb 13.1 (11.4-16.0) gm/dL Hct 38.9 (34.0-46.0) % MCV 87.9 (80.0-100.0) fL MCH 29.7 (25.0-35.0) pg MCHC 33.8 (31.0-37.0) g/dL RDW 14.5 (11.5-15.5) % Plt Count 195 (150-450) k/uL Neutrophils % 72 % Lymphocytes % 20 % Monocytes % 5 % Eosinophils % 1 % Basophils % 0 % Neutrophils # 6.3 (1.3-7.7) k/uL Lymphocytes # 1.8 (1.0-4.8) k/uL Monocytes # 0.4 (0-1.0) k/uL Eosinophils # 0.1 (0-0.7) k/uL Basophils # 0.0 (0-0.2) k/uL Sodium 137 (137-145) mmol/L Potassium 3.7 (3.5-5.1) mmol/L Chloride 101 (98-107) mmol/L Carbon Dioxide 27 (22-30) mmol/L Anion Gap 9 mmol/L BUN 9 (7-17) mg/dL Creatinine 0.59 (0.52-1.04) mg/dL Est GFR (CKD-EPI)AfAm >90 (>60 ml/min/1.73 sqM) Est GFR (CKD-EPI)NonAf >90 (>60 ml/min/1.73 sqM) Glucose 74 (74-99) mg/dL Calcium 9.2 (8.4-10.2) mg/dL Total Bilirubin 0.2 (0.2-1.3) mg/dL AST 20 (14-36) U/L ALT 27 (9-52) U/L Alkaline Phosphatase 74 (38-126) U/L Total Creatine Kinase 33 (30-135) U/L CK-MB (CK-2) 0.4 (0.0-2.4) ng/mL CK-MB (CK-2) Rel Index 1.2 Troponin I <0.012 (0.000-0.034) ng/mL Total Protein 6.5 (6.3-8.2) g/dL Albumin 3.8 (3.5-5.0) g/dL Urine Color Urine Appearance (Clear) Urine pH (5.0-8.0) Ur Specific [place] (1.001-1.035) Urine Protein (Negative) Urine Glucose (UA) (Negative) Urine Ketones (Negative) Urine Blood (Negative) Urine Nitrite (Negative) Urine Bilirubin (Negative) Urine Urobilinogen (<2.0) mg/dL Ur Leukocyte Esterase (Negative) Urine RBC (0-5) /hpf Urine WBC (0-5) /hpf Ur Squamous Epith Cells (0-4) /hpf Amorphous Sediment (None) /hpf Urine Bacteria (None) /hpf Urine Mucus (None) /hpf 03/14/18 Range/Units 19:08 WBC (3.8-10.6) k/uL RBC (3.80-5.40) m/uL Hgb (11.4-16.0) gm/dL Hct (34.0-46.0) % MCV (80.0-100.0) fL MCH (25.0-35.0) pg MCHC (31.0-37.0) g/dL RDW (11.5-15.5) % Plt Count (150-450) k/uL Neutrophils % % Lymphocytes % % Monocytes % % Eosinophils % % Basophils % % Neutrophils # (1.3-7.7) k/uL Lymphocytes # (1.0-4.8) k/uL Monocytes # (0-1.0) k/uL Eosinophils # (0-0.7) k/uL Basophils # (0-0.2) k/uL Sodium (137-145) mmol/L Potassium (3.5-5.1) mmol/L Chloride (98-107) mmol/L Carbon Dioxide (22-30) mmol/L Anion Gap mmol/L BUN (7-17) mg/dL Creatinine (0.52-1.04) mg/dL Est GFR (CKD-EPI)AfAm (>60 ml/min/1.73 sqM) Est GFR (CKD-EPI)NonAf (>60 ml/min/1.73 sqM) Glucose (74-99) mg/dL Calcium (8.4-10.2) mg/dL Total Bilirubin (0.2-1.3) mg/dL AST (14-36) U/L ALT (9-52) U/L Alkaline Phosphatase (38-126) U/L Total Creatine Kinase (30-135) U/L CK-MB (CK-2) (0.0-2.4) ng/mL CK-MB (CK-2) Rel Index Troponin I (0.000-0.034) ng/mL Total Protein (6.3-8.2) g/dL Albumin (3.5-5.0) g/dL Urine Color Yellow Urine Appearance Clear (Clear) Urine pH 6.0 (5.0-8.0) Ur Specific [place] 1.026 (1.001-1.035) Urine Protein Trace H (Negative) Urine Glucose (UA) Negative (Negative) Urine Ketones Negative (Negative) Urine Blood Negative (Negative) Urine Nitrite Negative (Negative) Urine Bilirubin Negative (Negative) Urine Urobilinogen <2.0 (<2.0) mg/dL Ur Leukocyte Esterase Moderate H (Negative) Urine RBC 1 (0-5) /hpf Urine WBC 37 H (0-5) /hpf Ur Squamous Epith Cells 8 H (0-4) /hpf Amorphous Sediment Rare H (None) /hpf Urine Bacteria Occasional H (None) /hpf Urine Mucus Occasional H (None) /hpf - Radiology Data Radiology results: report reviewed ultrasound was obtained. Report was reviewed in its entirety. Impression by Dr. Mckeon shows single live intrauterine gestation is redemonstrated, mean crown-rump length is 5.0 cm corresponding to 11 weeks 5-day -old fetus. Satisfactory interval progression is noted. Heart rate was 174. There is resolution a subchorionic hemorrhage felt present. Disposition Clinical Impression: Dizziness Disposition: HOME SELF-CARE Condition: Good Instructions: Dizziness (ED) Additional Instructions: Increase fluids. Follow-up with your [employer] [facility] as soon as possible. Follow-up through primary care physician for recheck. Return here immediately for any new , worsening, or concerning symptoms. Is patient prescribed a controlled substance at d/c from ED?: No Referrals: Lawrence Bueno MD [Primary Care Provider] - 1-2 days Time of Disposition: 21:35
[2018-03-14 19:28] LABS: ALT 27 U/L (9-52); AST 20 U/L (14-36); Albumin 3.8 g/dL (3.5-5.0); Alkaline Phosphatase 74 U/L (38-126); Anion Gap 9 mmol/L; Blood Urea Nitrogen 9 mg/dL (7-17); Calcium 9.2 mg/dL (8.4-10.2); Carbon Dioxide 27 mmol/L (22-30); Chloride 101 mmol/L (98-107); Glucose 74 mg/dL (74-99); Potassium 3.7 mmol/L (3.5-5.1); Sodium 137 mmol/L (137-145); Total Bilirubin 0.2 mg/dL (0.2-1.3); Total Protein 6.5 g/dL (6.3-8.2)
[2018-03-14 19:44] LABS: Creatine Kinase 33 U/L (30-135)
[2018-03-14 19:55] LABS: Creatine Kinase MB 0.4 ng/mL (0.0-2.4); Troponin I <0.012 ng/mL (0.000-0.034)
[2018-03-14 20:15] LABS: Amorphous Sediment,Urine Rare /hpf; Appearance,Urine Clear (Clear); Bacteria,Urine Occasional /hpf; Bilirubin,Urine Negative (Negative); Blood,Urine Negative (Negative); Color,Urine Yellow; Glucose,Urine (UA) Negative (Negative); Ketones,Urine Negative (Negative); Leukocyte Esterase,Urine Moderate (Negative); Mucus,Urine Occasional /hpf; Nitrite,Urine Negative (Negative); Protein,Urine Trace (Negative); RBC,Urine 1 /hpf (0-5); Specific Gravity,Urine 1.026 (1.001-1.035); Squamous Epithelial Cell,Urine 8 /hpf (0-4); Urobilinogen,Urine <2.0 mg/dL (<2.0); WBC,Urine 37 /hpf (0-5)
[2018-03-14 20:24] VITALS: RESP 18
--- NOTE | 2018-03-14 20:24 | US ---
EXAMINATION TYPE: Transabdominal DATE OF EXAM: 01/14/18 COMPARISON: Prior ultrasound from February 27, 2018 CLINICAL HISTORY: Pain. Dizziness since this morning. No bleeding today but states she has occasiona l spotting due to previous subchorionic bleed EXAM PERFORMED: Transabdominal (TA) EXAM MEASUREMENTS: GESTATIONAL AGE / DATING Dates by LMP: (11 weeks/2 days) EDC: 10/02/2018 Dates by Current Scan for: (11 weeks/5 days) EDC: 09/28/2018 MATERNAL ANATOMY Uterus: 13.2 x 8.5 x 6.8 cm Right Ovary: 4.8 x 2.5 x 2.1 cm Left Ovary: 3.2 x 2.0 x 1.5 cm Post CDS / Adnexa: no free fluid Presence of free fluid: no Presence of corpus luteal cyst: right ovarian hypoechoic lesion - 2.5 x 1.4 x 1.6 cm Presence of subchorionic bleed: no GESTATION / SURVEY CRL: 5.0 cm (11 weeks/5 days) MSD: Seen, not measured Yolk Sac (normal less than 6mm): not visualized Heart Rate: 174 bpm Rhythm: Normal IUP: Viable IUP Nuchal Translucency 10-14wks (normal less than 3mm): 1.2 mm Date of LMP: 12/25/2017, Beta HcG (if available): Not available at this time Single live IUP measuring 11 weeks 5 days Single live intrauterine gestation is seen as gestational sac and pole are identified. Yolk sac is not clearly seen on today's study. No free fluid is seen in pelvic cul-de-sac. There is interval resolution of subchorionic hemorrhage felt present. Both ovaries are seen. Within right ovary there is 2.5 cm oval hypoechoic lesion could reflect corpus luteal cyst unchanged from prior. IMPRESSION: Single live intrauterine gestation is redemonstrated, mean crown-rump length is 5.0 cm corresponding to 11 weeks 5 day old fetus. Satisfactory interval progression noted.
[2018-03-14 22:11] VITALS: BP 119/73; PULSE 98; TEMP 97.8
== END 2018-03-14 22:11 | disposition home or self-care (01) ==
LOC: EC 18:02
DX: O99.89 Other specified diseases and conditions complicating pregnancy, childbirth and the puerperium (principal); R42 Dizziness and giddiness; O23.41 Unspecified infection of urinary tract in pregnancy, first trimester; O26.851 Spotting complicating pregnancy, first trimester; R10.30 Lower abdominal pain, unspecified; R06.02 Shortness of breath; R51 Headache; R07.89 Other chest pain; Z87.891 Personal history of nicotine dependence; Z88.2 Allergy status to sulfonamides; Z91.010 Allergy to peanuts; Z91.018 Allergy to other foods; Z3A.11 11 weeks gestation of pregnancy; W01.0XXA Fall on same level from slipping, tripping and stumbling without subsequent striking against object, initial encounter; Y93.01 Activity, walking, marching and hiking; Y92.009 Unspecified place in unspecified non-institutional (private) residence as the place of occurrence of the external cause
CPT/HCPCS: 36415; 76801; 76813; 80053; 81001; 82550; 82553; 84484; 85025; 93005; 96360; 96361; 99284

== ENCOUNTER 2018-03-29 15:16 | Emergency (ER) | payer OTHER ==
[2018-03-29 15:37] VITALS: RESP 18
[2018-03-29] MEDS ORDERED: SODIUM CHLORIDE 0.9% 1,000 ML IV STA (16:03)
[2018-03-29 16:19] LABS: Basophils % (A) 0 %; Eosinophils # (A) 0.1 k/uL (0-0.7); Eosinophils % (A) 1 %; HCT 36.7 % (34.0-46.0); HGB 12.4 gm/dL (11.4-16.0); Lymphocytes # (A) 1.4 k/uL (1.0-4.8); Lymphocytes % (A) 19 %; MCH 29.3 pg (25.0-35.0); MCHC 33.7 g/dL (31.0-37.0); MCV 87.2 fL (80.0-100.0); Mean Platelet Volume 8.2; Monocytes # (A) 0.3 k/uL (0-1.0); Monocytes % (A) 4 %; Neutrophils # (A) 5.4 k/uL (1.3-7.7); Neutrophils % (A) 74 %; Platelet Count 190 k/uL (150-450); RBC 4.21 m/uL (3.80-5.40); RDW 14.5 % (11.5-15.5); WBC 7.2 k/uL (3.8-10.6)
[2018-03-29 16:28] LABS: ALT 27 U/L (9-52); AST 19 U/L (14-36); Albumin 3.4 g/dL (3.5-5.0); Alkaline Phosphatase 69 U/L (38-126); Anion Gap 11 mmol/L; Blood Urea Nitrogen 10 mg/dL (7-17); Calcium 8.7 mg/dL (8.4-10.2); Carbon Dioxide 20 mmol/L (22-30); Chloride 106 mmol/L (98-107); Glucose 96 mg/dL (74-99); Potassium 3.9 mmol/L (3.5-5.1); Sodium 137 mmol/L (137-145); Total Bilirubin 0.2 mg/dL (0.2-1.3); Total Protein 6.2 g/dL (6.3-8.2)
[2018-03-29 16:30] LABS: Appearance,Urine Cloudy (Clear); Bacteria,Urine Rare /hpf; Bilirubin,Urine Negative (Negative); Blood,Urine Negative (Negative); Color,Urine Yellow; Glucose,Urine (UA) Negative (Negative); Ketones,Urine Negative (Negative); Leukocyte Esterase,Urine Large (Negative); Mucus,Urine Rare /hpf; Nitrite,Urine Negative (Negative); Protein,Urine Negative (Negative); RBC,Urine 1 /hpf (0-5); Specific Gravity,Urine 1.017 (1.001-1.035); Squamous Epithelial Cell,Urine 16 /hpf (0-4); Urobilinogen,Urine <2.0 mg/dL (<2.0); WBC,Urine 4 /hpf (0-5)
--- NOTE | 2018-03-29 17:02 | ED ---
General Adult HPI - General Chief complaint: Abdominal Pain Stated complaint: Blood in Stool Time Seen by Provider: 03/29/18 15:20 Source: patient, RN notes reviewed Mode of arrival: ambulatory Limitations: no limitations - History of Present Illness Initial comments: 22-year-old female presents to the emergency department for a chief complaint of vaginal bleeding and cramping 2 days. Patient states she is 13 weeks . Patient states she has a sharp pain in the lower abdomen. Patient states she may also have some rectal bleeding. Patient denies diarrhea. She states her stools are of normal consistency. Patient denies any upper abdominal pain. Patient denies any dizziness, chest pain, or lightheadedness. Patient denies any nausea or vomiting. Patient denies passing any vaginal tissue. Patient has no other complaints at this time including shortness of breath, chest pain, abdominal pain, nausea or vomiting, headache, or visual changes. - Related Data Previous Rx's Medication Instructions Recorded Fzo-Kyow-Qqhbc Acid 1 cap PO DAILY #20 cap 01/21/18 [-U Capsule (formulary)] Amoxicillin 500 mg PO Q8H #21 capsule 02/28/18 Allergies Allergy/AdvReac Type Severity Reaction Status Date / Time nut - unspecified Allergy Anaphylaxis Verified 03/29/18 15:34 peanut Allergy Anaphylaxis Verified 03/29/18 15:34 Sulfa (Sulfonamide Allergy Rash/Hives Verified 03/29/18 15:34 Antibiotics) tree nut [Nut] Allergy Anaphylaxis Verified 03/29/18 15:34 Review of Systems ROS Statement: Those systems with pertinent positive or pertinent negative responses have been documented in the HPI. ROS Other: All systems not noted in ROS Statement are negative. 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, anx/bipolar and seizure disorder-last seizure 5 years ago History of Any Multi-Drug Resistant Organisms: None Reported Past Surgical History: No Surgical Hx Reported Additional Past Surgical History / Comment(s): no reported hx Past Anesthesia/Blood Transfusion Reactions: No Reported Reaction Additional Past Anesthesia/Blood Transfusion Reaction / Comment(s): FATHER- TAKES LONGER TO WAKE UP WITH ANESTHESIA" Past Psychological History: Anxiety, Bipolar Smoking Status: Former smoker Past Alcohol Use History: None Reported Past Drug Use History: None Reported - Past Family History Mother Family Medical History: Diabetes Mellitus, Hypertension, Seizure Disorder Additional Family Medical History / Comment(s): SVT Father History Unknown: Yes General Exam Limitations: no limitations General appearance: alert, in no apparent distress Head exam: Present: atraumatic, normocephalic, normal inspection Eye exam: Present: normal appearance ENT exam: Present: normal exam, mucous membranes moist Neck exam: Present: normal inspection, full ROM. Absent: tenderness, meningismus, lymphadenopathy Respiratory exam: Present: normal lung sounds bilaterally. Absent: respiratory distress, wheezes, rales, rhonchi, stridor Cardiovascular Exam: Present: regular rate, normal rhythm, normal heart sounds. Absent: systolic murmur, diastolic murmur, rubs, gallop, clicks GI/Abdominal exam: Present: soft, tenderness (Mild tenderness in the right and left lower quadrants. Mild tenderness in the suprapubic quadrant.), normal bowel sounds, other (Negative obturator and psoas signs.). Absent: distended, guarding, rebound, rigid Course Vital Signs 03/29/18 15:34 Temperature 98.3 F Pulse Rate 90 Respiratory 18 Rate Blood Pressure 126/83 O2 Sat by Pulse 97 Oximetry Medical Decision Making - Medical Decision Making 22-year-old female presents to the emergency department for a chief complaint of vaginal bleeding and cramping 2 days. Patient is 13 weeks . Patient may also have some rectal bleeding. On exam patient has mild lower abdominal tenderness. Negative obturator and psoas signs. Rest of the exam is unremarkable. CBC and CMP within normal limits. Hemoglobin 12.4. HCG 57,632. Ultrasound demonstrates a viable IUP that correlates with prior scans. Satisfactory growth compared to previous exams. At this time, patient is comfortable going home. She will follow up with OB in 1-2 days for vaginal bleeding and cramping. She will follow up with primary care in 1-2 days for rectal bleeding infection continues. She will return to the emergency Department if she has any worsening symptoms. Discussed with Dr. Burgess - Lab Data Result diagrams: 03/29/18 16:05 03/29/18 16:05 Lab Results 03/29/18 03/29/18 03/29/18 Range/Units 16:05 16:05 16:18 WBC 7.2 (3.8-10.6) k/uL RBC 4.21 (3.80-5.40) m/uL Hgb 12.4 (11.4-16.0) gm/dL Hct 36.7 (34.0-46.0) % MCV 87.2 (80.0-100.0) fL MCH 29.3 (25.0-35.0) pg MCHC 33.7 (31.0-37.0) g/dL RDW 14.5 (11.5-15.5) % Plt Count 190 (150-450) k/uL Neutrophils % 74 % Lymphocytes % 19 % Monocytes % 4 % Eosinophils % 1 % Basophils % 0 % Neutrophils # 5.4 (1.3-7.7) k/uL Lymphocytes # 1.4 (1.0-4.8) k/uL Monocytes # 0.3 (0-1.0) k/uL Eosinophils # 0.1 (0-0.7) k/uL Basophils # 0.0 (0-0.2) k/uL Sodium 137 (137-145) mmol/L Potassium 3.9 (3.5-5.1) mmol/L Chloride 106 (98-107) mmol/L Carbon Dioxide 20 L (22-30) mmol/L Anion Gap 11 mmol/L BUN 10 (7-17) mg/dL Creatinine 0.57 (0.52-1.04) mg/dL Est GFR (CKD-EPI)AfAm >90 (>60 ml/min/1.73 sqM) Est GFR (CKD-EPI)NonAf >90 (>60 ml/min/1.73 sqM) Glucose 96 (74-99) mg/dL Calcium 8.7 (8.4-10.2) mg/dL Total Bilirubin 0.2 (0.2-1.3) mg/dL AST 19 (14-36) U/L ALT 27 (9-52) U/L Alkaline Phosphatase 69 (38-126) U/L Total Protein 6.2 L (6.3-8.2) g/dL Albumin 3.4 L (3.5-5.0) g/dL HCG, Quant 52828.4 mIU/mL Urine Color Yellow Urine Appearance Cloudy H (Clear) Urine pH 7.0 (5.0-8.0) Ur Specific [place] 1.017 (1.001-1.035) Urine Protein Negative (Negative) Urine Glucose (UA) Negative (Negative) Urine Ketones Negative (Negative) Urine Blood Negative (Negative) Urine Nitrite Negative (Negative) Urine Bilirubin Negative (Negative) Urine Urobilinogen <2.0 (<2.0) mg/dL Ur Leukocyte Esterase Large H (Negative) Urine RBC 1 (0-5) /hpf Urine WBC 4 (0-5) /hpf Ur Squamous Epith Cells 16 H (0-4) /hpf Urine Bacteria Rare H (None) /hpf Urine Mucus Rare H (None) /hpf Disposition Clinical Impression: Vaginal bleeding Disposition: HOME SELF-CARE Condition: Good Instructions: First Trimester Vaginal Bleed (ED) Additional Instructions: Please monitor for worsening symptoms including increased pain and increased bleeding and return if these occur. Otherwise follow-up with primary care in 1- 2 days. Is patient prescribed a controlled substance at d/c from ED?: No Referrals: Lawrence Bueno MD [Primary Care Provider] - 1-2 days Time of Disposition: 17:57
[2018-03-29 17:09] LABS: HCG,Quantitative Serum 57632.4 mIU/mL
--- NOTE | 2018-03-29 17:21 | US ---
EXAMINATION TYPE: Transabdominal DATE OF EXAM: 01/14/18 COMPARISON: multiple US's CLINICAL HISTORY: Pain. spotting and cramping EXAM PERFORMED: Transabdominal (TA) EXAM MEASUREMENTS: GESTATIONAL AGE / DATING Physician Established: (13 weeks/3 days) EDC: 10/01/2018 Dates by LMP: LMP unknown Dates by First Scan: (13 weeks/6 days) EDC: 09/28/2018 Dates by Current Scan for: (13 weeks/5 days) EDC: 09/29/2018 MATERNAL ANATOMY Uterus: 13.4 x 8.9 x 9.0 cm Right Ovary: 2.6 x 1.9 x 1.7 cm Left Ovary: 2.6 x 1.7 x 1.9 cm Post CDS / Adnexa: wnl Presence of free fluid: none GESTATION / SURVEY CRL: 7.6 cm (13 weeks/5 days) Yolk Sac (normal less than 6mm): not seen Heart Rate: 155 bpm Rhythm: Normal IUP: Viable IUP Date of LMP: unknown Beta HcG (if available): Viable IUP that correlates with prior scans. IMPRESSION: No complicating process seen. Satisfactory growth compared to previous exams.
[2018-03-29 18:26] VITALS: BP 125/72; PULSE 74; TEMP 98.2
== END 2018-03-29 18:27 | disposition home or self-care (01) ==
LOC: EC 15:16
DX: O20.9 Hemorrhage in early pregnancy, unspecified (principal); Z87.891 Personal history of nicotine dependence; Z91.018 Allergy to other foods; Z91.010 Allergy to peanuts; Z88.2 Allergy status to sulfonamides; Z3A.13 13 weeks gestation of pregnancy
CPT/HCPCS: 36415; 76801; 80053; 81001; 84702; 85025; 96360; 96361; 99284

== ENCOUNTER → 2018-04-21 | Outpatient (CLI) | payer OTHER | END | disposition home or self-care (01) | LOC: LABWHC1 11:09 | PROVIDERS: ATTEND Obstetrics & Gynecology | DX: O99.281 Endocrine, nutritional and metabolic diseases complicating pregnancy, first trimester (principal); O26.891 Other specified pregnancy related conditions, first trimester; O09.291 Supervision of pregnancy with other poor reproductive or obstetric history, first trimester; Z3A.00 Weeks of gestation of pregnancy not specified | CPT/HCPCS: 36415; 82105; 82677; 84702; 86336 ==

== ENCOUNTER 2018-06-02 18:01 | Outpatient (CLI) | payer OTHER ==
[2018-06-02 19:04] VITALS: BP 120/71; PULSE 100; RESP 16; TEMP 97.9
[2018-06-02 19:12] LABS: Appearance,Urine Cloudy (Clear); Bacteria,Urine Few /hpf; Bilirubin,Urine Negative (Negative); Blood,Urine Negative (Negative); Budding Yeast,Urine Occasional /hpf; Color,Urine Yellow; Glucose,Urine (UA) Negative (Negative); Ketones,Urine Negative (Negative); Leukocyte Esterase,Urine Large (Negative); Mucus,Urine Occasional /hpf; Nitrite,Urine Negative (Negative); PH, Urine 6.5 (5.0-8.0); Protein,Urine Trace (Negative); Specific Gravity,Urine 1.017 (1.001-1.035); Squamous Epithelial Cell,Urine 23 /hpf (0-4); Urobilinogen,Urine <2.0 mg/dL (<2.0)
--- NOTE | 2018-06-10 08:13 | P.MSEPDOC ---
Presenting Problems - Arrival Data Date of Arrival on Unit: 06/02/18 Time of Arrival on Unit: 18:01 Mode of Transport: Ambulatory - Complaint OB-Reason for Admission/Chief Complaint: Pain Comment: right flank pain and dysuria Medical History - Information : 3 Para: 2 Term: 1 : 1 Abortions: Spontaneous or Elective: 3 Number of Living Children: 2 - Gestational Age Gestational Age by ARCELIA (wks/days): 22 Weeks and 5 Days - History Complications: Preeclampsia Review of Systems - Review of Systems Constitutional: No problems Breast: No problems ENT: No problems Cardiovascular: No problems Respiratory: No problems Gastrointestinal: No problems Genitourinary: Dysuria Musculoskeletal: No problems Neurological: No problems Skin: No problems Vital Signs - Temperature Temperature: 97.9 F Temperature Source: Temporal Artery Scan - Pulse Right Brachial Pulse Rate: 100 Pulse Assessment Method: Automatic Cuff - Respirations Respiratory Rate: 16 Oxygen Delivery Method: Room Air - Blood Pressure Right Arm Blood Pressure: 120/71 Blood Pressure Mean: 87 Blood Pressure Source: Automatic Cuff Medical Screen Scoring (Pre) - Cervical Exam Dilation: Exam Deferred Effacement: Exam Deferred Membranes: Intact - Uterine Contractions Frequency: N/A Duration: N/A Intensity: N/A - Maternal Vital Signs Maternal Temperature: N/A Maternal Blood Pressure: N/A Signs of Preeclampsia: N/A Maternal Respirations: N/A - Pain Assessment Pain Location and Character: Right, Back, Abdomen Pain Scale Used: Numeric (1 - 10) Pain Intensity: 8 Pain Description: *Acute, Stabbing Pain Frequency: Constant Pain Duration: 5 Pain Duration Units: Hours Pain Behavior: Facial Grimacing, Guarding Pain Aggravating Factors: Activity - Maternal Trauma Maternal Trauma: N/A - Assessment Baseline FHR: 140 Heart Rate - NICHD Category: Category I (Normal) = 0 - Total Score Total Score (Pre): 0 - Level of Risk Level of Risk: Low (0-5) Physician Notification (Pre) - Physician Notified Physician Notified Date: 06/02/18 Physician Notified Time: 19:30 Physician/Practitioner Notifed:: Dr. Haile New Order Received: Yes - Notification Comment Comment: Ordres given to Discharge patient home with instructions and patient to keep regularly scheduled appt. Disposition - Disposition OB Disposition: Discharge to home, Written follow up instructions reviewed Discharge Date: 06/02/18 Discharge Time: 19:39 I agree with the RN Medical Screening Exam: Yes Risk & Benefit of care provided described in d/c instruction: Yes Diagnosis: URINARY TRACT INFECTION, SITE NOT SPECIFIED
== END 2018-06-02 19:39 | disposition home or self-care (01) ==
LOC: FBPOP 18:01
PROVIDERS: ATTEND Obstetrics & Gynecology
DX: O23.40 Unspecified infection of urinary tract in pregnancy, unspecified trimester (principal); Z3A.22 22 weeks gestation of pregnancy
CPT/HCPCS: 81001; 87086; G0463; 99213

== ENCOUNTER → 2018-06-11 | Outpatient (CLI) | payer OTHER ==
[2018-06-11 13:10] LABS: HCT 37.6 % (34.0-46.0); HGB 12.2 gm/dL (11.4-16.0); MCH 30.5 pg (25.0-35.0); MCHC 32.6 g/dL (31.0-37.0); MCV 93.7 fL (80.0-100.0); Mean Platelet Volume 7.8; Platelet Count 201 k/uL (150-450); RBC 4.01 m/uL (3.80-5.40); RDW 15.5 % (11.5-15.5); WBC 9.4 k/uL (3.8-10.6)
== END | disposition home or self-care (01) ==
LOC: LABWHC1 11:57
PROVIDERS: ATTEND Obstetrics & Gynecology
DX: Z34.90 Encounter for supervision of normal pregnancy, unspecified, unspecified trimester (principal)
CPT/HCPCS: 36415; 82950; 84443; 85027

== ENCOUNTER 2018-06-26 15:57 | Outpatient (CLI) | payer OTHER ==
[2018-06-26 16:41] VITALS: BP 131/74; PULSE 94; RESP 18; TEMP 98.6
[2018-06-26 17:23] LABS: Amorphous Sediment,Urine Rare /hpf; Appearance,Urine Cloudy (Clear); Bilirubin,Urine Negative (Negative); Blood,Urine Negative (Negative); Color,Urine Yellow; Glucose,Urine (UA) Negative (Negative); Ketones,Urine Negative (Negative); Leukocyte Esterase,Urine Large (Negative); Mucus,Urine Rare /hpf; Nitrite,Urine Negative (Negative); PH, Urine 6.5 (5.0-8.0); Protein,Urine Negative (Negative); RBC,Urine 2 /hpf (0-5); Specific Gravity,Urine 1.015 (1.001-1.035); Squamous Epithelial Cell,Urine 4 /hpf (0-4); Urobilinogen,Urine <2.0 mg/dL (<2.0); WBC,Urine 14 /hpf (0-5)
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
== END 2018-06-26 18:10 | disposition home or self-care (01) ==
LOC: FBPOP 15:57
PROVIDERS: ATTEND Obstetrics & Gynecology
DX: O26.852 Spotting complicating pregnancy, second trimester (principal); Z3A.26 26 weeks gestation of pregnancy
CPT/HCPCS: 82731; 81001; 87086; G0463; 99213

== ENCOUNTER 2018-07-16 15:12 | Emergency (ER) | payer OTHER ==
--- NOTE | 2018-07-16 16:00 | ED ---
General Adult HPI - General Chief complaint: Nausea/Vomiting/Diarrhea Stated complaint: Dizzy,nauseated Time Seen by Provider: 07/16/18 15:37 Source: patient, RN notes reviewed Mode of arrival: ambulatory Limitations: no limitations - History of Present Illness Initial comments: Patient is a pleasant 22-year-old female presenting to the emergency department with nausea vomiting. Onset of symptoms was yesterday. Symptoms have been mostly persistent. Patient has vomited approximately 10-12 times. Patient is having some occasional blurry vision and dizziness. Patient did have some emesis early with however was not this bad. No abdominal pain. No vaginal bleeding. No pelvic pain. Patient is approximately 29 weeks gravid. Patient does see Dr. Rivera. - Related Data Home Medications Medication Instructions Recorded Confirmed Aspirin 81 mg PO DAILY 06/02/18 07/16/18 Folic Acid 1 mg PO DAILY 07/16/18 07/16/18 Previous Rx's Medication Instructions Recorded Zwl-Nydf-Srgsm Acid 1 cap PO DAILY #20 cap 01/21/18 [-U Capsule (formulary)] Allergies Allergy/AdvReac Type Severity Reaction Status Date / Time nut - unspecified Allergy Anaphylaxis Verified 07/16/18 17:35 peanut Allergy Anaphylaxis Verified 07/16/18 17:35 Sulfa (Sulfonamide Allergy Rash/Hives Verified 07/16/18 17:35 Antibiotics) tree nut [Nut] Allergy Anaphylaxis Verified 07/16/18 17:35 Review of Systems ROS Statement: Those systems with pertinent positive or pertinent negative responses have been documented in the HPI. ROS Other: All systems not noted in ROS Statement are negative. Constitutional: Denies: fever Eyes: Denies: eye pain ENT: Denies: ear pain Respiratory: Denies: cough Cardiovascular: Denies: chest pain Endocrine: Denies: fatigue Gastrointestinal: Reports: nausea, vomiting. Denies: abdominal pain Genitourinary: Denies: dysuria, hematuria Musculoskeletal: Denies: back pain Skin: Denies: rash Neurological: Denies: weakness 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, anx/bipolar and seizure disorder-last seizure 5 years ago History of Any Multi-Drug Resistant Organisms: None Reported Past Surgical History: No Surgical Hx Reported Additional Past Surgical History / Comment(s): no reported hx Past Anesthesia/Blood Transfusion Reactions: No Reported Reaction Additional Past Anesthesia/Blood Transfusion Reaction / Comment(s): FATHER- TAKES LONGER TO WAKE UP WITH ANESTHESIA" Past Psychological History: Anxiety, Bipolar Smoking Status: Former smoker Past Alcohol Use History: None Reported Past Drug Use History: None Reported - Past Family History Mother Family Medical History: Diabetes Mellitus, Hypertension, Seizure Disorder Additional Family Medical History / Comment(s): SVT Father History Unknown: Yes General Exam Limitations: no limitations General appearance: alert, in no apparent distress Head exam: Present: atraumatic Eye exam: Present: normal appearance, PERRL, EOMI. Absent: nystagmus ENT exam: Present: normal oropharynx Neck exam: Present: normal inspection Respiratory exam: Present: normal lung sounds bilaterally Cardiovascular Exam: Present: regular rate, normal rhythm GI/Abdominal exam: Present: soft, distended (Consistent with gravid state). Absent: tenderness, guarding Extremities exam: Present: normal inspection Neurological exam: Present: alert, oriented X3, CN II-XII intact. Absent: motor sensory deficit Expanded Neurological exam: Present: protecting the airway Speech: Present: fluid speech Cranial nerves: EOM's Intact: Normal Sensory exam: Upper Extremity Light Touch: Normal, Lower Extremity Light Touch: Normal Motor strength exam: RUE: 5, LUE: 5, RLE: 5, LLE: 5 Eye Response: (4) open spontaneously Motor Response: (6) obeys commands Verbal Response: (5) oriented Psychiatric exam: Present: normal affect, normal mood Skin exam: Present: normal color Course Vital Signs 07/16/18 07/16/18 15:21 17:12 Temperature 98.4 F Pulse Rate 113 H 86 Respiratory 18 20 Rate Blood Pressure 99/69 122/69 O2 Sat by Pulse 96 99 Oximetry Medical Decision Making - Medical Decision Making Patient reevaluated and feeling much better following medication. Patient will be sent upstairs for monitoring. - Lab Data Result diagrams: 07/16/18 16:45 07/16/18 16:45 Lab Results 07/16/18 07/16/18 07/16/18 Range/Units 16:45 16:45 16:45 WBC 6.0 (3.8-10.6) k/uL RBC 3.88 (3.80-5.40) m/uL Hgb 11.5 (11.4-16.0) gm/dL Hct 34.3 (34.0-46.0) % MCV 88.3 D (80.0-100.0) fL MCH 29.5 (25.0-35.0) pg MCHC 33.5 (31.0-37.0) g/dL RDW 14.8 (11.5-15.5) % Plt Count 165 (150-450) k/uL Neutrophils % 71 % Lymphocytes % 19 % Monocytes % 6 % Eosinophils % 2 % Basophils % 0 % Neutrophils # 4.3 (1.3-7.7) k/uL Lymphocytes # 1.2 (1.0-4.8) k/uL Monocytes # 0.4 (0-1.0) k/uL Eosinophils # 0.1 (0-0.7) k/uL Basophils # 0.0 (0-0.2) k/uL Sodium 138 (137-145) mmol/L Potassium 4.1 (3.5-5.1) mmol/L Chloride 107 (98-107) mmol/L Carbon Dioxide 23 (22-30) mmol/L Anion Gap 8 mmol/L BUN 8 (7-17) mg/dL Creatinine 0.45 L (0.52-1.04) mg/dL Est GFR (CKD-EPI)AfAm >90 (>60 ml/min/1.73 sqM) Est GFR (CKD-EPI)NonAf >90 (>60 ml/min/1.73 sqM) Glucose 103 H (74-99) mg/dL Calcium 8.9 (8.4-10.2) mg/dL Total Bilirubin 0.3 (0.2-1.3) mg/dL AST 24 (14-36) U/L ALT 25 (9-52) U/L Alkaline Phosphatase 110 (38-126) U/L Total Protein 6.1 L (6.3-8.2) g/dL Albumin 3.2 L (3.5-5.0) g/dL Amylase 61 (30-110) U/L Lipase 110 (23-300) U/L HCG, Quant 3525.4 mIU/mL Urine Color Yellow Urine Appearance Turbid H (Clear) Urine pH 7.5 (5.0-8.0) Ur Specific [place] 1.015 (1.001-1.035) Urine Protein Trace H (Negative) Urine Glucose (UA) Negative (Negative) Urine Ketones Negative (Negative) Urine Blood Negative (Negative) Urine Nitrite Negative (Negative) Urine Bilirubin Negative (Negative) Urine Urobilinogen <2.0 (<2.0) mg/dL Ur Leukocyte Esterase Large H (Negative) Urine RBC 7 H (0-5) /hpf Urine WBC 5 (0-5) /hpf Ur Squamous Epith Cells 9 H (0-4) /hpf Amorphous Sediment Occasional H (None) /hpf Urine Mucus Rare H (None) /hpf Disposition Clinical Impression: Vomiting, Dizziness Disposition: HOME SELF-CARE Condition: Stable Instructions: Acute Nausea and Vomiting (ED) Additional Instructions: Please head upstairs for upset recall monitoring and further evaluation. Return for increased dizziness, weakness, persistent vomiting, worsening symptoms or other concerns. Is patient prescribed a controlled substance at d/c from ED?: No Referrals: Lawrence Bueno MD [Primary Care Provider] - 1-2 days Yaron Haile DO [Doctor of Osteopathic Medicine] - 1-2 days Marcellus Zaldivar MD [STAFF PHYSICIAN] - 1-2 days Time of Disposition: 17:41
[2018-07-16] MEDS: SODIUM CHLORIDE 0.9% 2,000 ML IV STA (16:45)
[2018-07-16 16:58] LABS: Basophils % (A) 0 %; Eosinophils # (A) 0.1 k/uL (0-0.7); Eosinophils % (A) 2 %; HCT 34.3 % (34.0-46.0); HGB 11.5 gm/dL (11.4-16.0); Lymphocytes # (A) 1.2 k/uL (1.0-4.8); Lymphocytes % (A) 19 %; MCH 29.5 pg (25.0-35.0); MCHC 33.5 g/dL (31.0-37.0); Mean Platelet Volume 8.7; Monocytes # (A) 0.4 k/uL (0-1.0); Monocytes % (A) 6 %; Neutrophils # (A) 4.3 k/uL (1.3-7.7); Neutrophils % (A) 71 %; Platelet Count 165 k/uL (150-450); RBC 3.88 m/uL (3.80-5.40); RDW 14.8 % (11.5-15.5)
[2018-07-16 17:00] LABS: MCV 88.3 fL (80.0-100.0)
[2018-07-16 17:05] LABS: Amorphous Sediment,Urine Occasional /hpf; Appearance,Urine Turbid (Clear); Bilirubin,Urine Negative (Negative); Blood,Urine Negative (Negative); Color,Urine Yellow; Glucose,Urine (UA) Negative (Negative); Ketones,Urine Negative (Negative); Leukocyte Esterase,Urine Large (Negative); Mucus,Urine Rare /hpf; Nitrite,Urine Negative (Negative); PH, Urine 7.5 (5.0-8.0); Protein,Urine Trace (Negative); RBC,Urine 7 /hpf (0-5); Specific Gravity,Urine 1.015 (1.001-1.035); Squamous Epithelial Cell,Urine 9 /hpf (0-4); Urobilinogen,Urine <2.0 mg/dL (<2.0); WBC,Urine 5 /hpf (0-5)
[2018-07-16] MEDS: MECLIZINE 12.5 MG TAB PO STA (17:06)
[2018-07-16] MEDS: METOCLOPRAMIDE 5 MG/ML 2 ML VIAL IVP STA (17:06)
[2018-07-16 17:08] LABS: ALT 25 U/L (9-52); AST 24 U/L (14-36); Albumin 3.2 g/dL (3.5-5.0); Alkaline Phosphatase 110 U/L (38-126); Amylase 61 U/L (30-110); Anion Gap 8 mmol/L; Blood Urea Nitrogen 8 mg/dL (7-17); Calcium 8.9 mg/dL (8.4-10.2); Carbon Dioxide 23 mmol/L (22-30); Chloride 107 mmol/L (98-107); Glucose 103 mg/dL (74-99); Lipase 110 U/L (23-300); Potassium 4.1 mmol/L (3.5-5.1); Sodium 138 mmol/L (137-145); Total Bilirubin 0.3 mg/dL (0.2-1.3); Total Protein 6.1 g/dL (6.3-8.2)
[2018-07-16] MEDS: FAMOTIDINE 20 MG/2 ML VIAL IV STA (17:09)
[2018-07-16 17:13] VITALS: RESP 20
[2018-07-16 17:24] LABS: HCG,Quantitative Serum 3525.4 mIU/mL
[2018-07-16 18:01] VITALS: BP 129/77; PULSE 89; TEMP 98.1
== END 2018-07-16 17:50 | disposition home or self-care (01) ==
LOC: EC 15:12
DX: O21.9 Vomiting of pregnancy, unspecified (principal); O99.89 Other specified diseases and conditions complicating pregnancy, childbirth and the puerperium; R42 Dizziness and giddiness; Z87.891 Personal history of nicotine dependence; Z79.82 Long term (current) use of aspirin; Z91.018 Allergy to other foods; Z91.010 Allergy to peanuts; Z88.2 Allergy status to sulfonamides; Z3A.29 29 weeks gestation of pregnancy
CPT/HCPCS: 99284 ×2; 96374 ×2; 96375 ×2; 96361 ×3; 59025; 36415; 80053; 82150; 83690; 85025; 81001; 84702; 87086; G0463; J2765; 99213

== ENCOUNTER 2018-07-16 18:10 | Outpatient (CLI) | payer OTHER ==
[2018-07-16 18:36] LABS: Glucose,Whole Blood 82 mg/dL (75-99)
[2018-07-16 19:27] VITALS: BP 121/65; PULSE 81; RESP 18; TEMP 98.2
--- NOTE | 2018-08-11 18:26 | P.MSEPDOC ---
Presenting Problems - Arrival Data Date of Arrival on Unit: 07/16/18 Time of Arrival on Unit: 18:20 Mode of Transport: Ambulatory - Complaint OB-Reason for Admission/Chief Complaint: NST Comment: sent from Ec for montoring after treatment for nausea/vomiting Medical History - Information : 3 Para: 2 Term: 2 : 0 Abortions: Spontaneous or Elective: 0 Number of Living Children: 2 - Gestational Age Gestational Age by ARCELIA (wks/days): 29 Weeks and 0 Days - History Complications: GDM Comment: hx: preeclampsia in 2 previous pregnancies, on ASA. hx seizure disorder , none in the last 7 years Review of Systems - Review of Systems Constitutional: No problems Breast: No problems ENT: No problems Cardiovascular: No problems Respiratory: No problems Gastrointestinal: No problems Genitourinary: No problems Musculoskeletal: No problems Neurological: No problems Skin: No problems Vital Signs - Temperature Temperature: 98.2 F Temperature Source: Oral - Pulse Right Sitting Brachial Pulse Rate: 81 Pulse Assessment Method: Automatic Cuff - Respirations Respiratory Rate: 18 Oxygen Delivery Method: Room Air O2 Sat by Pulse Oximetry: 97 - Blood Pressure Right Arm Sitting Blood Pressure: 121/65 Blood Pressure Mean: 83 Blood Pressure Source: Automatic Cuff Medical Screen Scoring (Pre) - Cervical Exam Dilation: Exam Deferred Effacement: Exam Deferred Membranes: Intact - Uterine Contractions Frequency: N/A Duration: N/A Intensity: N/A - Maternal Vital Signs Maternal Temperature: N/A Maternal Blood Pressure: N/A Signs of Preeclampsia: N/A Maternal Respirations: N/A - Pain Assessment Pain Scale Used: Numeric (1 - 10) Pain Intensity: 0 Pain Management Goal: 3 - Maternal Trauma Maternal Trauma: N/A - Assessment Baseline FHR: 140 Heart Rate - NICHD Category: Category I (Normal) = 0 NST: Reactive Position: N/A Station: N/A - Total Score Total Score (Pre): 0 - Level of Risk Level of Risk: Low (0-5) Physician Notification (Pre) - Physician Notified Physician Notified Date: 07/16/18 Physician Notified Time: 19:17 Physician/Practitioner Notifed:: Dr Telles Spoke With: Dr Telles New Order Received: Yes - Notification Comment Comment: ok to dc home. Follow up with Dr Haile as scheduled. Disposition - Disposition OB Disposition: Discharge to home Discharge Date: 07/16/18 Discharge Time: 19:26 I agree with the RN Medical Screening Exam: Yes Risk & Benefit of care provided described in d/c instruction: Yes Diagnosis: NAUSEA WITH VOMITING, UNSPECIFIED
== END 2018-07-16 19:28 | disposition home or self-care (01) ==
LOC: FBPOP 18:10
PROVIDERS: ATTEND Obstetrics & Gynecology
DX: O21.2 Late vomiting of pregnancy (principal); Z3A.29 29 weeks gestation of pregnancy
CPT/HCPCS: 59025; G0463; 99213

== ENCOUNTER 2018-07-23 16:07 | Outpatient (CLI) | payer OTHER ==
[2018-07-23 16:29] LABS: Appearance,Urine Turbid (Clear); Bilirubin,Urine Negative (Negative); Blood,Urine Negative (Negative); Color,Urine Yellow; Glucose,Urine (UA) Negative (Negative); Ketones,Urine Negative (Negative); Leukocyte Esterase,Urine Large (Negative); Nitrite,Urine Negative (Negative); Protein,Urine Trace (Negative); Specific Gravity,Urine 1.012 (1.001-1.035); Squamous Epithelial Cell,Urine 5 /hpf (0-4); Urobilinogen,Urine <2.0 mg/dL (<2.0); WBC,Urine 10 /hpf (0-5)
[2018-07-23 16:58] VITALS: BP 124/72; PULSE 113; RESP 16; TEMP 98.4
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
== END 2018-07-23 16:50 | disposition home or self-care (01) ==
LOC: FBPOP 16:07
PROVIDERS: ATTEND Obstetrics & Gynecology
DX: O99.89 Other specified diseases and conditions complicating pregnancy, childbirth and the puerperium (principal); R10.9 Unspecified abdominal pain; Z3A.30 30 weeks gestation of pregnancy
CPT/HCPCS: 59025; 81001; G0463; 99213

== ENCOUNTER 2018-08-09 21:55 | Observation (INO) | payer OTHER ==
[2018-08-09 22:39] LABS: Appearance,Urine Clear (Clear); Bacteria,Urine Rare /hpf; Bilirubin,Urine Negative (Negative); Blood,Urine Negative (Negative); Color,Urine Light Yellow; Glucose,Urine (UA) Negative (Negative); Ketones,Urine Negative (Negative); Leukocyte Esterase,Urine Small (Negative); Mucus,Urine Rare /hpf; Nitrite,Urine Negative (Negative); Protein,Urine Negative (Negative); RBC,Urine 1 /hpf (0-5); Specific Gravity,Urine 1.008 (1.001-1.035); Squamous Epithelial Cell,Urine 2 /hpf (0-4); Urobilinogen,Urine <2.0 mg/dL (<2.0); WBC,Urine 2 /hpf (0-5)
[2018-08-09 22:39] LABS: Glucose,Whole Blood 118 mg/dL (75-99)
[2018-08-09 22:41] LABS: Amphetamine Screen,Urine Not Detected (NotDetected); Barbiturate Screen,Urine Not Detected (NotDetected); Benzodiazepines Screen,Urine Not Detected (NotDetected); Cocaine Screen,Urine Not Detected (NotDetected); Methadone Screen, Urine Not Detected (NotDetected); Opiate Screen,Urine Not Detected (NotDetected); Oxycodone Screen, Urine Not Detected (NotDetected); Phencyclidine Screen,Urine Not Detected (NotDetected); Tricyclic Antidepressant,Urine Not Detected (NotDetected); Urn Cannabinoid Scrn Not Detected (NotDetected)
[2018-08-09 23:00] LABS: Basophils % (A) 0 %; Eosinophils # (A) 0.1 k/uL (0-0.7); Eosinophils % (A) 1 %; HCT 33.2 % (34.0-46.0); HGB 10.7 gm/dL (11.4-16.0); Hypochromasia Slight; Lymphocytes # (A) 1.3 k/uL (1.0-4.8); Lymphocytes % (A) 17 %; MCH 28.5 pg (25.0-35.0); MCHC 32.2 g/dL (31.0-37.0); MCV 88.6 fL (80.0-100.0); Mean Platelet Volume 8.9; Monocytes # (A) 0.4 k/uL (0-1.0); Monocytes % (A) 6 %; Neutrophils # (A) 5.7 k/uL (1.3-7.7); Neutrophils % (A) 75 %; Platelet Count 134 k/uL (150-450); RBC 3.75 m/uL (3.80-5.40); RDW 15.6 % (11.5-15.5); WBC 7.7 k/uL (3.8-10.6)
[2018-08-09 23:08] LABS: Uric Acid 3.8 mg/dL (3.7-7.4)
[2018-08-10] VITALS: BMI 34.4
--- NOTE | 2018-08-10 00:20 | US ---
EXAMINATION TYPE: US OB >= 14 wk fetus DATE OF EXAM: 08/09/2018 COMPARISON: None CLINICAL HISTORY: pain TECHNIQUE: Transabdominal (TA) GESTATIONAL AGE / DATING Physician Established: (32 weeks/3 days) EDC: 10/01/2018 Dates by LMP: (32 weeks/3 days) EDC: Dates by First Scan: (32 weeks/0 days) EDC: 09/28/2018 Dates by Current Scan: (32 weeks/2 days) EDC: 10/02/2018 Beta HCG (if available): Not available at this time SURVEY IUP: Single PLACENTA: Posterior PREVIA: No Previa KENNY: 13.4 cm Normal CERVICAL LENGTH (transabdominal: norm > 3.0cm): 3.5 cm BIOMETRY PRESENTATION: Vertex LIE: Longitudinal BPD: 8.2 cm 32 weeks / 5 days HC: 29.6 cm 32 weeks / 5 days AC: 28.7 cm 32 weeks / 5 days FL: 6.3 cm 32 weeks / 4 days ESTIMATED WEIGHT IN GRAMS: 2034 grams ESTIMATED WEIGHT IN LBS/OZ: 4 lbs. 8 oz. WEIGHT PERCENTAGE BASED ON ESTABLISHED DATES: 48.9% HC/AC: 1.0 Normal FL/AC: 21.9 Normal HEART RATE: 147 bpm RHYTHM: Normal IMPRESSION: There is satisfactory growth compared to exam of 02/10/2018. No complicating process seen.
[2018-08-10] MEDS: LACTATED RINGERS 1,000 ML IV SCH ×2 (00:38→16:29)
[2018-08-10] MEDS: BETAMET ACET-BETAMETH SOD PHOS 6 MG/ML VIAL IM SCH (00:38)
--- NOTE | 2018-08-10 01:34 | P.HPOB ---
History of Present Illness H&P Date: 08/10/18 Chief Complaint: Pelvic pain and pressure This patient is a 22-year-old 3 para 2 female estimated date of confinement 10/01/2018 estimated gestational age 32-3/7 weeks who presented to labor and delivery with complaints of lower pelvic pain and pressure. Patient' s care is per Dr. Haile and has been complicated by multiple medical problems including seizure disorder, hyperthyroidism, gestational diabetes. Patient also was induced and her first at 36-6/7 weeks gestation for preeclampsia by Dr. Telles. Patient's blood pressures in the office have been normal, ranging 110-120/70's. Her initial blood pressure today was 155/80, repeat blood pressures have been 130 to 140/70-90. Patient denies headache or other symptomatology at this time. Cervix per the RN was 1 cm and thick however her fibronectin is positive. Patient has been seen by maternal medicine for her gestational diabetes and co-care. Review of Systems Constitutional: Reports as per HPI Genitourinary: Reports Menstruation: Reports amenorrhea Past Medical History Past Medical History: Seizure Disorder, Thyroid Disorder Additional Past Medical History / Comment(s): born 3 months premature has cerebral palsy, 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 barre in 2010, anx/bipolar and seizure disorder-last seizure 5 years ago History of Any Multi-Drug Resistant Organisms: None Reported Past Surgical History: No Surgical Hx Reported Additional Past Surgical History / Comment(s): no reported hx Past Anesthesia/Blood Transfusion Reactions: No Reported Reaction Additional Past Anesthesia/Blood Transfusion Reaction / Comment(s): FATHER- TAKES LONGER TO WAKE UP WITH ANESTHESIA" Past Psychological History: Anxiety, Bipolar Additional Psychological History / Comment(s): lives with parents Smoking Status: Never smoker Past Alcohol Use History: None Reported Additional Past Alcohol Use History / Comment(s): started smoking at Age 15 and quit age 16 ONLY SMOKED 2 CIG PER DAY Past Drug Use History: None Reported - Past Family History Mother Family Medical History: Diabetes Mellitus, Hypertension, Seizure Disorder Additional Family Medical History / Comment(s): SVT Father History Unknown: Yes Medications and Allergies Home Medications Medication Instructions Recorded Confirmed Type Cqd-Moyr-Xeolb Acid 1 cap PO DAILY #20 cap 01/21/18 07/23/18 Rx [-U Capsule (formulary)] Aspirin 81 mg PO DAILY 06/02/18 07/23/18 History Folic Acid 1 mg PO DAILY 07/16/18 07/23/18 History Allergies Allergy/AdvReac Type Severity Reaction Status Date / Time nut - unspecified Allergy Anaphylaxis Verified 07/23/18 16:10 peanut Allergy Anaphylaxis Verified 07/23/18 16:10 Sulfa (Sulfonamide Allergy Rash/Hives Verified 07/23/18 16:10 Antibiotics) tree nut [Nut] Allergy Anaphylaxis Verified 07/23/18 16:10 Exam Vital Signs Temp Pulse Resp BP 08/09/18 22:55 97.3 F L 98 16 155/80 Intake and Output 08/09/18 08/09/18 08/10/18 14:59 22:59 06:59 Other: Weight 85.275 kg 85.275 kg - OBG Physical Exam Abdomen: bowel sounds normal, no diffuse tenderness, no bruit present, no guarding noted, no hepatomegaly, no splenomegaly, no mass Cervix: no lesion (1 cm and thick per the RN.), no discharge Uterus: enlarged Results Obstetrical ultrasound was normal and level III ultrasound done approximately 2 weeks ago was normal. fibronectin was positive. Preeclampsia blood work was negative however her platelets were 136. Result Diagrams: 08/09/18 22:40 Abnormal Lab Results - Last 24 Hours (Table) 08/09/18 08/09/18 08/09/18 Range/Units 20:22 22:36 22:40 RBC 3.75 L (3.80-5.40) m/uL Hgb 10.7 L (11.4-16.0) gm/dL Hct 33.2 L (34.0-46.0) % RDW 15.6 H (11.5-15.5) % Plt Count 134 L (150-450) k/uL POC Glucose (mg/dL) 118 H (75-99) mg/dL Ur Leukocyte Esterase Small H (Negative) Urine Bacteria Rare H (None) /hpf Urine Mucus Rare H (None) /hpf Assessment and Plan Assessment: This is a 22-year-old 3 para 2 female 32-3/7 weeks gestation who is admitted to labor and delivery with complaints of lower pelvic pain and pressure. Cervix is 1 cm and thick however her fibronectin is positive therefore plan is to admit her for Celestone administration due to the increased risk of delivery. Patient is also a gestational diabetic although at this point is not on any medication and only diet controlled. She understands that the Celestone May elevated her glucose. Patient also has some mild gestational hypertension which appears to be new. There is no evidence of preeclampsia at this time. However she is being admitted for observation for this as well. And the repeat her CBC in the morning. Continue NST every shift and monitor closely. (1) 32 weeks gestation of Current Visit: Yes Status: Acute Code(s): Z3A.32 - 32 WEEKS GESTATION OF SNOMED Code(s): 1347424 (2) Pelvic pain affecting in third trimester, antepartum Current Visit: Yes Status: Acute Code(s): O26.893 - OTH RELATED CONDITIONS, THIRD TRIMESTER; R10.2 - PELVIC AND PERINEAL PAIN SNOMED Code(s): 320068023 (3) Gestational hypertension Current Visit: Yes Status: Acute Code(s): O13.9 - GESTATIONAL HTN W/O SIGNIFICANT PROTEINURIA, UNSP TRIMESTER SNOMED Code(s): 754968459
--- NOTE | 2018-08-10 06:59 | P.PN ---
Progress Note - Text Progress Note Date: 08/10/18 Hospital day #2. Patient is sleeping currently without complaints. heart tones are reactive. Blood pressures are now normal. CBC is pending. Patient received a dose of Celestone late last evening and she'll have a repeat 24 hours from that. Plan is to continue observation and every shift NSTs. Repeat Celestone tonight and if her blood pressures remained normal most likely she'll be discharged home tomorrow for close observation as an outpatient.
--- NOTE | 2018-08-10 07:04 | P.MSEPDOC ---
Presenting Problems - Arrival Data Date of Arrival on Unit: 08/09/18 Time of Arrival on Unit: 22:00 Mode of Transport: Portable - Complaint OB-Reason for Admission/Chief Complaint: Pain Medical History - Information : 3 Para: 2 Term: 1 : 1 Abortions: Spontaneous or Elective: 0 Number of Living Children: 2 - Gestational Age Gestational Age by ARCELIA (wks/days): 33 Weeks and 3 Days - History Complications: GDM, Prior Review of Systems - Review of Systems Constitutional: No problems Breast: No problems ENT: No problems Cardiovascular: No problems Respiratory: No problems Gastrointestinal: No problems Genitourinary: No problems Musculoskeletal: No problems Neurological: No problems Skin: No problems Vital Signs - Temperature Temperature: 97.7 F Temperature Source: Tympanic - Pulse Right Brachial Pulse Rate: 94 Pulse Assessment Method: Automatic Cuff - Respirations Respiratory Rate: 16 Oxygen Delivery Method: Room Air - Blood Pressure Right Arm Blood Pressure: 123/66 Blood Pressure Mean: 85 Blood Pressure Source: Automatic Cuff Medical Screen Scoring (Pre) - Cervical Exam Dilation: 1-3 cm = 1 Membranes: Intact - Uterine Contractions Frequency: > 5 minutes apart = 1 - Maternal Vital Signs Maternal Temperature: N/A Maternal Blood Pressure: N/A Signs of Preeclampsia: N/A Maternal Respirations: N/A - Pain Assessment Pain Location and Character: Abdomen Pain Scale Used: Numeric (1 - 10) Pain Intensity: 8 Pain Management Goal: 2 Pain Description: *Acute, Pressure Pain Radiation Location: na Pain Frequency: Intermittent Pain Duration: 1 Pain Duration Units: Minutes Pain Behavior: Vocalization Pain Aggravating Factors: None Non-Pharmacological Interventions: Position/Reposition - Maternal Trauma Maternal Trauma: N/A - Assessment Baseline FHR: 145 Heart Rate - NICHD Category: Category I (Normal) = 0 - Total Score Total Score (Pre): 2 - Level of Risk Level of Risk: Low (0-5) Physician Notification (Pre) - Physician Notified Physician Notified Date: 08/09/18 Physician Notified Time: 22:12 Physician/Practitioner Notifed:: Dr. Head Spoke With: Dr. Head New Order Received: Yes Medical Screen Scoring (Post) - Cervical Exam Dilation: 1-3 cm = 1 Membranes: Intact - Uterine Contractions Frequency: > 5 minutes apart = 1 - Maternal Vital Signs Maternal Temperature: N/A Maternal Blood Pressure: Systolic >139 = 2 Signs of Preeclampsia: N/A Maternal Respirations: N/A - Assessment Heart Rate: 145 Heart Rate - NICHD Category: Category I (Normal) = 0 - Total Score Total Score (Post): 4 - Post Treatment Level of Risk Post Treatment Level of Risk: Low (0-5) Physician Notification (Post) - Physician Notified Physician Notified Date: 08/09/18 Physician Notified Time: 23:15 Physician/Practitioner Notified:: DR. HEAD Spoke With: DR. HEAD New Order Received: Yes - Notification Comment Comment: ADMIT FOR OBV Disposition - Disposition OB Disposition: Admit I agree with the RN Medical Screening Exam: Yes Risk & Benefit of care provided described in d/c instruction: Yes Diagnosis: UNSPECIFIED ABDOMINAL PAIN
[2018-08-10 07:18] LABS: Basophils % (A) 0 %; Eosinophils % (A) 0 %; HGB 10.7 gm/dL (11.4-16.0); Hypochromasia Slight; Lymphocytes # (A) 0.7 k/uL (1.0-4.8); Lymphocytes % (A) 11 %; MCH 28.5 pg (25.0-35.0); MCHC 32.3 g/dL (31.0-37.0); MCV 88.3 fL (80.0-100.0); Mean Platelet Volume 8.6; Monocytes # (A) 0.1 k/uL (0-1.0); Monocytes % (A) 2 %; Neutrophils # (A) 5.9 k/uL (1.3-7.7); Neutrophils % (A) 86 %; Platelet Count 143 k/uL (150-450); RBC 3.74 m/uL (3.80-5.40); RDW 15.8 % (11.5-15.5); WBC 6.8 k/uL (3.8-10.6)
[2018-08-10 09:13] LABS: Glucose,Whole Blood 222 mg/dL (75-99)
--- NOTE | 2018-08-10 09:34 | P.PN ---
Progress Note - Text Progress Note Date: 08/10/18 Patients BS was 222 approximately 45 mins after eating breakfast. She states the highest at home has been 169. She has been apparently managed with diet per MFM. This may be secondary to steroid administration, however unlike to see this early. Regardless will watch glucose closely and start SSI.
[2018-08-10 10:54] LABS: Glucose,Whole Blood 185 mg/dL (75-99)
[2018-08-10] MEDS: INSULIN ASPART 100 UNIT/ML 1 ML 10 ML VIAL SQ SCH ×3 (11:04→20:24)
[2018-08-10 12:25] LABS: Glucose,Whole Blood 149 mg/dL (75-99)
[2018-08-10 14:55] LABS: Glucose,Whole Blood 156 mg/dL (75-99)
[2018-08-10 17:57] LABS: Glucose,Whole Blood 98 mg/dL (75-99)
[2018-08-10 20:26] LABS: Glucose,Whole Blood 139 mg/dL (75-99)
[2018-08-11 00:14] LABS: Glucose,Whole Blood 97 mg/dL (75-99)
[2018-08-11 00:31] VITALS: RESP 16
[2018-08-11] MEDS: BETAMET ACET-BETAMETH SOD PHOS 6 MG/ML VIAL IM SCH (02:32)
[2018-08-11 06:00] VITALS: BP 126/77; PULSE 97; TEMP 97.9
[2018-08-11] MEDS: INSULIN ASPART 100 UNIT/ML 1 ML 10 ML VIAL SQ SCH ×4 (06:01→16:22)
[2018-08-11 07:58] LABS: Glucose,Whole Blood 169 mg/dL (75-99)
--- NOTE | 2018-08-11 09:01 | P.DS ---
Providers Date of admission: 08/09/18 23:34 Expected date of discharge: 08/11/18 Attending physician: Darryl Head Primary care physician: Yaron Haile [facility] Course: Patient is doing well this morning. Her pain has completely resolved and she is having no further contractions. She made no cervical change. She did receive 2 doses of Celestone. She is 32 weeks with a positive fibronectin. Discussion was held with the patient on risks of labor with a relatively low positive predictive value but still possible she could go into labor due to the positive fibronectin and therefore she'll be on modified bedrest at home Couple of weeks. She is aware to not take her children [id number] on Saturday with 2 higher increased risk of going into labor. Other questions were answered for her at this time. Her vital signs stable and afebrile. Heart regular, lungs clear, extremities without pain. We had 1 tracings. All questions are answered for her and she will be discharged home later this morning in stable condition and she'll follow up with me on . Patient Condition at Discharge: Good Plan - Discharge Summary New Discharge Prescriptions: No Action Bux-Haeg-Oidro Acid [-U Capsule (formulary)] 1 cap PO DAILY #20 cap Aspirin 81 mg PO DAILY Folic Acid 1 mg PO DAILY Discharge Medication List Njs-Putk-Vngui Acid [-U Capsule (formulary)] 1 cap PO DAILY # 20 cap 01/21/18 [Rx] Aspirin 81 mg PO DAILY 06/02/18 [History] Folic Acid 1 mg PO DAILY 07/16/18 [History] Follow up Appointment(s)/Referral(s): Yaron Haile DO [Primary Care Provider] - 08/14/18 Activity/Diet/Wound Care/Special Instructions: No heavy lifting and complete pelvic rest. To be on modified bedrest at home for the next few days. Return with any contractions less than 10 minutes apart that are consistent and strong. Discharge Disposition: HOME SELF-CARE
[2018-08-11 10:09] LABS: Glucose,Whole Blood 190 mg/dL (75-99)
[2018-08-11] MEDS ORDERED: metFORMIN 500 MG TAB PO ONE (12:00)
[2018-08-11 16:28] LABS: Glucose,Whole Blood 143 mg/dL (75-99)
== END 2018-08-11 17:18 | disposition home or self-care (01) ==
LOC: FBPOP 21:55 → 4FBP 23:34 → INTOOBSV 23:34
PROVIDERS: ADMIT Obstetrics & Gynecology; ATTEND Obstetrics & Gynecology
DX: O26.893 Other specified pregnancy related conditions, third trimester (principal); R10.2 Pelvic and perineal pain; Z3A.36 36 weeks gestation of pregnancy; O14.93 Unspecified pre-eclampsia, third trimester; O13.3 Gestational [pregnancy-induced] hypertension without significant proteinuria, third trimester; O24.419 Gestational diabetes mellitus in pregnancy, unspecified control; G40.909 Epilepsy, unspecified, not intractable, without status epilepticus; E05.90 Thyrotoxicosis, unspecified without thyrotoxic crisis or storm; O99.283 Endocrine, nutritional and metabolic diseases complicating pregnancy, third trimester; G80.9 Cerebral palsy, unspecified; O99.353 Diseases of the nervous system complicating pregnancy, third trimester; Z87.891 Personal history of nicotine dependence; Z83.3 Family history of diabetes mellitus; Z82.49 Family history of ischemic heart disease and other diseases of the circulatory system; Z82.0 Family history of epilepsy and other diseases of the nervous system; Z79.82 Long term (current) use of aspirin; Z88.2 Allergy status to sulfonamides; Z91.018 Allergy to other foods; Z91.010 Allergy to peanuts
CPT/HCPCS: 59025; 96360; 96361; 96372 ×2; 82731; 83615; 84450; 84460; 84550; 85025 ×2; 81001; 80306; 87086; 83036; 76805; G0463; G0378 ×3; J0702 ×2; 99215

== ENCOUNTER 2018-08-21 16:57 | Emergency (ER) | payer OTHER ==
[2018-08-21 17:10] VITALS: TEMP 98.1
[2018-08-21 19:15] LABS: Glucose,Whole Blood 137 mg/dL (75-99)
[2018-08-21] MEDS ORDERED: SODIUM CHLORIDE 0.9% 1,000 ML IV STA (19:31)
--- NOTE | 2018-08-21 19:39 | ED ---
General Adult HPI - General Chief complaint: Recheck/Abnormal Lab/Rx Stated complaint: High blood sugar/34 wks preg Time Seen by Provider: 08/21/18 19:12 Source: patient, RN notes reviewed Mode of arrival: wheelchair Limitations: no limitations - History of Present Illness Initial comments: 22-year-old female who is currently 34 weeks presents to the emergency department for a chief complaint of "high blood sugar." Patient states she was at home when she checked her glucose and it was 210. She states that she believes it has gone down since that time she did check and in the waiting room. She states she was recently admitted 1 week ago and started on metformin for high glucose. She states that she has a follow-up tomorrow with a high risk reduction counselor for gestational diabetes. Patient states she has had mild chest pain earlier today that is now feeling much better and denies any shortness of breath with this. She denies any swelling. Patient has no other complaints at this time including shortness of breath, abdominal pain, nausea or vomiting, headache, or visual changes. - Related Data Home Medications Medication Instructions Recorded Confirmed Aspirin 81 mg PO DAILY 06/02/18 08/21/18 Folic Acid 1 mg PO DAILY 07/16/18 08/21/18 metFORMIN HCL 500 mg PO BID 08/21/18 08/21/18 Previous Rx's Medication Instructions Recorded Qov-Fizx-Atrxg Acid 1 cap PO DAILY #20 cap 01/21/18 [-U Capsule (formulary)] Cephalexin [Keflex] 500 mg PO Q6HR 10 Days cap 08/21/18 Allergies Allergy/AdvReac Type Severity Reaction Status Date / Time nut - unspecified Allergy Anaphylaxis Verified 08/21/18 18:52 peanut Allergy Anaphylaxis Verified 08/21/18 18:52 Sulfa (Sulfonamide Allergy Rash/Hives Verified 08/21/18 18:52 Antibiotics) tree nut [Nut] Allergy Anaphylaxis Verified 08/21/18 18:52 Review of Systems ROS Statement: Those systems with pertinent positive or pertinent negative responses have been documented in the HPI. ROS Other: All systems not noted in ROS Statement are negative. Past Medical History Past Medical History: Seizure Disorder, Thyroid Disorder Additional Past Medical History / Comment(s): born 3 months premature has cerebral palsy, 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 barre in 2010, anx/bipolar and seizure disorder-last seizure 5 years ago History of Any Multi-Drug Resistant Organisms: None Reported Past Surgical History: No Surgical Hx Reported Additional Past Surgical History / Comment(s): no reported hx Past Anesthesia/Blood Transfusion Reactions: No Reported Reaction Additional Past Anesthesia/Blood Transfusion Reaction / Comment(s): FATHER- TAKES LONGER TO WAKE UP WITH ANESTHESIA" Past Psychological History: Anxiety, Bipolar Smoking Status: Never smoker Past Alcohol Use History: None Reported Past Drug Use History: None Reported - Past Family History Mother Family Medical History: Diabetes Mellitus, Hypertension, Seizure Disorder Additional Family Medical History / Comment(s): SVT Father History Unknown: Yes General Exam Limitations: no limitations General appearance: alert, in no apparent distress Head exam: Present: atraumatic, normocephalic, normal inspection Eye exam: Present: normal appearance, PERRL, EOMI. Absent: scleral icterus, conjunctival injection, periorbital swelling ENT exam: Present: normal exam, mucous membranes moist Neck exam: Present: normal inspection, full ROM. Absent: tenderness, meningismus, lymphadenopathy Respiratory exam: Present: normal lung sounds bilaterally. Absent: respiratory distress, wheezes, rales, rhonchi, stridor Cardiovascular Exam: Present: regular rate, normal rhythm, normal heart sounds. Absent: systolic murmur, diastolic murmur, rubs, gallop, clicks GI/Abdominal exam: Present: soft, normal bowel sounds, other (). Absent : distended, tenderness, guarding, rebound, rigid Extremities exam: Absent: pedal edema (No pedal edema present) Neurological exam: Present: alert, oriented X3, CN II-XII intact Psychiatric exam: Present: normal affect, normal mood Course Vital Signs 08/21/18 17:07 Temperature 98.1 F Pulse Rate 114 H Respiratory 20 Rate Blood Pressure 125/83 O2 Sat by Pulse 95 Oximetry Medical Decision Making - Medical Decision Making 22-year-old female currently 34 weeks presents to the emergency department for a chief complaint of high glucose. Patient states she was 210 at home. Patient states she is being evaluated for gestational diabetes. She denies any swelling and does not have any pedal edema. Patient states she has a specialist appointment tomorrow morning for this. CBC and CMP are unremarkable. Glucose is 125. At this Point, patient would like to be discharged home so she can follow-up with her specialty appointment for this problem tomorrow. Urine did show possible infection and so patient will be treated with Keflex. No CVA tenderness on exam and patient denies back pain. However, I did discuss with the patient that this may be due to contamination and culture will be sent. She agrees to follow up in 2 days to seek culture results as to whether to continue the antibiotics. She will follow-up with Dr. Rivera as well for this. She will return here if she has any worsening symptoms. She voices understanding of this and agrees with this plan. Discussed care with Dr Burgess. - Lab Data Result diagrams: 08/21/18 19:08 08/21/18 19:08 Lab Results 08/21/18 08/21/18 08/21/18 Range/Units 19:02 19: 19:08 WBC 8.1 (3.8-10.6) k/uL RBC 4.13 (3.80-5.40) m/uL Hgb 11.7 (11.4-16.0) gm/dL Hct 35.6 (34.0-46.0) % MCV 86.3 (80.0-100.0) fL MCH 28.3 (25.0-35.0) pg MCHC 32.8 (31.0-37.0) g/dL RDW 15.9 H (11.5-15.5) % Plt Count 158 (150-450) k/uL Neutrophils % 72 % Lymphocytes % 19 % Monocytes % 7 % Eosinophils % 1 % Basophils % 0 % Neutrophils # 5.8 (1.3-7.7) k/uL Lymphocytes # 1.5 (1.0-4.8) k/uL Monocytes # 0.6 (0-1.0) k/uL Eosinophils # 0.1 (0-0.7) k/uL Basophils # 0.0 (0-0.2) k/uL Hypochromasia Slight Sodium 135 L (137-145) mmol/L Potassium 4.1 (3.5-5.1) mmol/L Chloride 106 (98-107) mmol/L Carbon Dioxide 22 (22-30) mmol/L Anion Gap 7 mmol/L BUN 11 (7-17) mg/dL Creatinine 0.52 (0.52-1.04) mg/dL Est GFR (CKD-EPI)AfAm >90 (>60 ml/min/1.73 sqM) Est GFR (CKD-EPI)NonAf >90 (>60 ml/min/1.73 sqM) Glucose 125 H (74-99) mg/dL POC Glucose (mg/dL) 137 H (75-99) mg/dL POC Glu Leadite Heater ID Fer Jeffries Calcium 9.2 (8.4-10.2) mg/dL Total Bilirubin 0.3 (0.2-1.3) mg/dL AST 17 (14-36) U/L ALT 22 (9-52) U/L Alkaline Phosphatase 165 H (38-126) U/L Total Protein 6.3 (6.3-8.2) g/dL Albumin 3.2 L (3.5-5.0) g/dL Urine Color Urine Appearance (Clear) Urine pH (5.0-8.0) Ur Specific [place] (1.001-1.035) Urine Protein (Negative) Urine Glucose (UA) (Negative) Urine Ketones (Negative) Urine Blood (Negative) Urine Nitrite (Negative) Urine Bilirubin (Negative) Urine Urobilinogen (<2.0) mg/dL Ur Leukocyte Esterase (Negative) Urine RBC (0-5) /hpf Urine WBC (0-5) /hpf Ur Squamous Epith Cells (0-4) /hpf Urine Bacteria (None) /hpf Urine Mucus (None) /hpf Urine Yeast (Budding) (None) /hpf 08/21/18 Range/Units 19:57 WBC (3.8-10.6) k/uL RBC (3.80-5.40) m/uL Hgb (11.4-16.0) gm/dL Hct (34.0-46.0) % MCV (80.0-100.0) fL MCH (25.0-35.0) pg MCHC (31.0-37.0) g/dL RDW (11.5-15.5) % Plt Count (150-450) k/uL Neutrophils % % Lymphocytes % % Monocytes % % Eosinophils % % Basophils % % Neutrophils # (1.3-7.7) k/uL Lymphocytes # (1.0-4.8) k/uL Monocytes # (0-1.0) k/uL Eosinophils # (0-0.7) k/uL Basophils # (0-0.2) k/uL Hypochromasia Sodium (137-145) mmol/L Potassium (3.5-5.1) mmol/L Chloride (98-107) mmol/L Carbon Dioxide (22-30) mmol/L Anion Gap mmol/L BUN (7-17) mg/dL Creatinine (0.52-1.04) mg/dL Est GFR (CKD-EPI)AfAm (>60 ml/min/1.73 sqM) Est GFR (CKD-EPI)NonAf (>60 ml/min/1.73 sqM) Glucose (74-99) mg/dL POC Glucose (mg/dL) (75-99) mg/dL POC Glu Leadite Heater ID Calcium (8.4-10.2) mg/dL Total Bilirubin (0.2-1.3) mg/dL AST (14-36) U/L ALT (9-52) U/L Alkaline Phosphatase (38-126) U/L Total Protein (6.3-8.2) g/dL Albumin (3.5-5.0) g/dL Urine Color Yellow Urine Appearance Cloudy H (Clear) Urine pH 7.0 (5.0-8.0) Ur Specific [place] 1.015 (1.001-1.035) Urine Protein Trace H (Negative) Urine Glucose (UA) Negative (Negative) Urine Ketones Negative (Negative) Urine Blood Negative (Negative) Urine Nitrite Negative (Negative) Urine Bilirubin Negative (Negative) Urine Urobilinogen <2.0 (<2.0) mg/dL Ur Leukocyte Esterase Large H (Negative) Urine RBC 6 H (0-5) /hpf Urine WBC 79 H (0-5) /hpf Ur Squamous Epith Cells 9 H (0-4) /hpf Urine Bacteria Occasional H (None) /hpf Urine Mucus Rare H (None) /hpf Urine Yeast (Budding) Few H (None) /hpf Disposition Clinical Impression: , UTI (urinary tract infection) Disposition: HOME SELF-CARE Condition: Good Instructions: Urinary Tract Infection in (ED) Additional Instructions: Please take Keflex as directed. Please follow-up with your specialist appointment tomorrow as well as your [employer]GER in 1-2 days. Return to the emergency department if you have any worsening symptoms. Prescriptions: Cephalexin [Keflex] 500 mg PO Q6HR 10 Days cap Is patient prescribed a controlled substance at d/c from ED?: No Referrals: Yaron Haile DO [Doctor of Osteopathic Medicine] - 1-2 days Time of Disposition: 22:14
[2018-08-21 20:31] LABS: Appearance,Urine Cloudy (Clear); Bacteria,Urine Occasional /hpf; Bilirubin,Urine Negative (Negative); Blood,Urine Negative (Negative); Budding Yeast,Urine Few /hpf; Color,Urine Yellow; Glucose,Urine (UA) Negative (Negative); Ketones,Urine Negative (Negative); Leukocyte Esterase,Urine Large (Negative); Mucus,Urine Rare /hpf; Nitrite,Urine Negative (Negative); Protein,Urine Trace (Negative); RBC,Urine 6 /hpf (0-5); Specific Gravity,Urine 1.015 (1.001-1.035); Squamous Epithelial Cell,Urine 9 /hpf (0-4); Urobilinogen,Urine <2.0 mg/dL (<2.0); WBC,Urine 79 /hpf (0-5)
[2018-08-21 20:37] LABS: ALT 22 U/L (9-52); AST 17 U/L (14-36); Albumin 3.2 g/dL (3.5-5.0); Alkaline Phosphatase 165 U/L (38-126); Anion Gap 7 mmol/L; Blood Urea Nitrogen 11 mg/dL (7-17); Calcium 9.2 mg/dL (8.4-10.2); Carbon Dioxide 22 mmol/L (22-30); Chloride 106 mmol/L (98-107); Glucose 125 mg/dL (74-99); Potassium 4.1 mmol/L (3.5-5.1); Sodium 135 mmol/L (137-145); Total Bilirubin 0.3 mg/dL (0.2-1.3); Total Protein 6.3 g/dL (6.3-8.2)
[2018-08-21 21:04] LABS: Basophils % (A) 0 %; Eosinophils # (A) 0.1 k/uL (0-0.7); Eosinophils % (A) 1 %; HCT 35.6 % (34.0-46.0); HGB 11.7 gm/dL (11.4-16.0); Hypochromasia Slight; Lymphocytes # (A) 1.5 k/uL (1.0-4.8); Lymphocytes % (A) 19 %; MCH 28.3 pg (25.0-35.0); MCHC 32.8 g/dL (31.0-37.0); MCV 86.3 fL (80.0-100.0); Mean Platelet Volume 9.7; Monocytes # (A) 0.6 k/uL (0-1.0); Monocytes % (A) 7 %; Neutrophils # (A) 5.8 k/uL (1.3-7.7); Neutrophils % (A) 72 %; Platelet Count 158 k/uL (150-450); RBC 4.13 m/uL (3.80-5.40); RDW 15.9 % (11.5-15.5); WBC 8.1 k/uL (3.8-10.6)
[2018-08-21 22:42] VITALS: BP 121/77; PULSE 93; RESP 16
== END 2018-08-21 22:41 | disposition home or self-care (01) ==
LOC: EC 16:57
DX: O23.43 Unspecified infection of urinary tract in pregnancy, third trimester (principal); O24.415 Gestational diabetes mellitus in pregnancy, controlled by oral hypoglycemic drugs; Z3A.34 34 weeks gestation of pregnancy; Z79.82 Long term (current) use of aspirin; Z79.84 Long term (current) use of oral hypoglycemic drugs; Z79.899 Other long term (current) drug therapy; Z88.2 Allergy status to sulfonamides; Z91.010 Allergy to peanuts; Z91.018 Allergy to other foods
CPT/HCPCS: 36415; 80053; 81001; 85025; 87086; 96360; 99283

== ENCOUNTER 2018-09-19 09:16 | Emergency (ER) | payer OTHER ==
[2018-09-19 09:20] VITALS: RESP 18
[2018-09-19] MEDS ORDERED: SODIUM CHLORIDE 0.9% 1,000 ML IV STA (09:34)
[2018-09-19] MEDS ORDERED: ONDANSETRON 4 MG/2 ML VIAL IVP STA (09:34)
--- NOTE | 2018-09-19 09:38 | ED ---
General Adult HPI - General Chief complaint: Nausea/Vomiting/Diarrhea Stated complaint: dizzy Time Seen by Provider: 09/19/18 09:22 Source: patient, RN notes reviewed Mode of arrival: ambulatory Limitations: no limitations - History of Present Illness Initial comments: Patient 22-year-old female presented to the emergency room today with a chief complaint of nausea vomiting over the last 3 days. States unable to keep anything down. Patient does admit to recent vaginal delivery at 34 weeks 5 days. Patient does admit that she had gestational diabetes. States she was taking metformin but has not been since the . Patient admits to feeling dizzy. She denies any other complaints or symptoms. Patient denies any recent fever, chills, shortness of breath, chest pain, back pain, numbness or tingling, headaches or visual changes, or any other complaints. - Related Data Previous Rx's Medication Instructions Recorded Wtf-Nlgc-Onkpr Acid 1 cap PO DAILY #20 cap 01/21/18 [-U Capsule (formulary)] Cephalexin [Keflex] 500 mg PO Q12HR 10 Days cap 09/19/18 Ondansetron Odt [Zofran ODT] 4 mg PO Q8HR PRN #20 tab 09/19/18 Allergies Allergy/AdvReac Type Severity Reaction Status Date / Time nut - unspecified Allergy Anaphylaxis Verified 09/19/18 09:49 peanut Allergy Anaphylaxis Verified 09/19/18 09:49 Sulfa (Sulfonamide Allergy Rash/Hives Verified 09/19/18 09:49 Antibiotics) tree nut [Nut] Allergy Anaphylaxis Verified 09/19/18 09:49 Review of Systems ROS Statement: Those systems with pertinent positive or pertinent negative responses have been documented in the HPI. ROS Other: All systems not noted in ROS Statement are negative. Past Medical History Past Medical History: Seizure Disorder, Thyroid Disorder Additional Past Medical History / Comment(s): born 3 months premature has cerebral palsy, 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 barre in 2010, anx/bipolar and seizure disorder-last seizure 5 years ago History of Any Multi-Drug Resistant Organisms: None Reported Past Surgical History: No Surgical Hx Reported Additional Past Surgical History / Comment(s): no reported hx Past Anesthesia/Blood Transfusion Reactions: No Reported Reaction Additional Past Anesthesia/Blood Transfusion Reaction / Comment(s): FATHER- TAKES LONGER TO WAKE UP WITH ANESTHESIA" Past Psychological History: Anxiety, Bipolar Smoking Status: Former smoker Past Alcohol Use History: None Reported Past Drug Use History: None Reported - Past Family History Mother Family Medical History: Diabetes Mellitus, Hypertension, Seizure Disorder Additional Family Medical History / Comment(s): SVT Father History Unknown: Yes General Exam - General Exam Comments Initial Comments: General: The patient is awake and alert, in no distress, and does not appear acutely ill. Eye: There is normal conjunctiva bilaterally. No signs of icterus. Ears, nose, mouth and throat: There are moist mucous membranes and no oral lesions. Neck: The neck is supple, there is no tenderness or JVD. Cardiovascular: There is a regular rate and rhythm. No murmur, rub or gallop is appreciated. Respiratory: Lungs are clear to auscultation, respirations are non-labored, breath sounds are equal. No wheezes, stridor, rales, or rhonchi. Gastrointestinal: Soft, non-distended, non-tender abdomen without masses or organomegaly noted. There is no rebound or guarding present. No CVA tenderness. Musculoskeletal: Normal ROM, no tenderness. Strength 5/5. Sensation intact. Pulses equal bilaterally 2+. Neurological: A&O x 3. CN II-XII intact, There are no obvious motor or sensory deficits. Coordination appears grossly intact. Speech is normal. Skin: Skin is warm and dry and no rashes or lesions are noted. Psychiatric: Cooperative, appropriate mood & affect, normal judgment. Limitations: no limitations Course Vital Signs 09/19/18 09/19/18 09:18 10:18 Temperature 98.2 F Pulse Rate 89 78 Respiratory 18 18 Rate Blood Pressure 159/81 120/75 O2 Sat by Pulse 99 98 Oximetry Medical Decision Making - Medical Decision Making Case discussed in detail with attending physician Dr. Burgess. Patient's labs been reviewed and show a positive acetone. Blood glucose was normal. Patient' s symptoms improved after nausea medication and IV fluids here. Her abdomen is soft nontender. Patient's vitals stable. Blood pressure much improved after initial elevated blood pressure at triage. Patient did have trace protein in the urine. She did have 2+ ketones. At this time patient is doing well and will be discharged home continue on nausea medication advised follow-up family doctor next 2 days. Urinalysis reviewed showing 17 white cells and patient does admit to some dysuria will be treated as cultures pending. She is advised return if any symptoms increase or worsen or for any other concerns. - Lab Data Result diagrams: 09/19/18 10:13 09/19/18 10:13 Lab Results 09/19/18 09/19/18 09/19/18 Range/Units 10:13 10:13 10:13 WBC 6.3 (3.8-10.6) k/uL RBC 4.78 (3.80-5.40) m/uL Hgb 13.4 (11.4-16.0) gm/dL Hct 41.7 (34.0-46.0) % MCV 87.2 (80.0-100.0) fL MCH 28.1 (25.0-35.0) pg MCHC 32.2 (31.0-37.0) g/dL RDW 16.1 H (11.5-15.5) % Plt Count 233 (150-450) k/uL Neutrophils % 72 % Lymphocytes % 20 % Monocytes % 5 % Eosinophils % 2 % Basophils % 0 % Neutrophils # 4.5 (1.3-7.7) k/uL Lymphocytes # 1.2 (1.0-4.8) k/uL Monocytes # 0.3 (0-1.0) k/uL Eosinophils # 0.1 (0-0.7) k/uL Basophils # 0.0 (0-0.2) k/uL Anisocytosis Slight Sodium 143 (137-145) mmol/L Potassium 4.1 (3.5-5.1) mmol/L Chloride 106 (98-107) mmol/L Carbon Dioxide 25 (22-30) mmol/L Anion Gap 12 mmol/L BUN 14 (7-17) mg/dL Creatinine 0.83 (0.52-1.04) mg/dL Est GFR (CKD-EPI)AfAm >90 (>60 ml/min/1.73 sqM) Est GFR (CKD-EPI)NonAf >90 (>60 ml/min/1.73 sqM) Glucose 82 (74-99) mg/dL Calcium 9.5 (8.4-10.2) mg/dL Total Bilirubin 0.5 (0.2-1.3) mg/dL AST 27 (14-36) U/L ALT 32 (9-52) U/L Alkaline Phosphatase 127 H (38-126) U/L Total Protein 7.5 (6.3-8.2) g/dL Albumin 4.3 (3.5-5.0) g/dL Amylase 56 (30-110) U/L Lipase 64 (23-300) U/L Urine Color Urine Appearance (Clear) Urine pH (5.0-8.0) Ur Specific [place] (1.001-1.035) Urine Protein (Negative) Urine Glucose (UA) (Negative) Urine Ketones (Negative) Urine Blood (Negative) Urine Nitrite (Negative) Urine Bilirubin (Negative) Urine Urobilinogen (<2.0) mg/dL Ur Leukocyte Esterase (Negative) Urine RBC (0-5) /hpf Urine WBC (0-5) /hpf Ur Squamous Epith Cells (0-4) /hpf Urine Mucus (None) /hpf Urine HCG, Qual Not Detected (Not Detectd) Acetone, Qual Positive (Negative) 09/19/18 Range/Units 10:13 WBC (3.8-10.6) k/uL RBC (3.80-5.40) m/uL Hgb (11.4-16.0) gm/dL Hct (34.0-46.0) % MCV (80.0-100.0) fL MCH (25.0-35.0) pg MCHC (31.0-37.0) g/dL RDW (11.5-15.5) % Plt Count (150-450) k/uL Neutrophils % % Lymphocytes % % Monocytes % % Eosinophils % % Basophils % % Neutrophils # (1.3-7.7) k/uL Lymphocytes # (1.0-4.8) k/uL Monocytes # (0-1.0) k/uL Eosinophils # (0-0.7) k/uL Basophils # (0-0.2) k/uL Anisocytosis Sodium (137-145) mmol/L Potassium (3.5-5.1) mmol/L Chloride (98-107) mmol/L Carbon Dioxide (22-30) mmol/L Anion Gap mmol/L BUN (7-17) mg/dL Creatinine (0.52-1.04) mg/dL Est GFR (CKD-EPI)AfAm (>60 ml/min/1.73 sqM) Est GFR (CKD-EPI)NonAf (>60 ml/min/1.73 sqM) Glucose (74-99) mg/dL Calcium (8.4-10.2) mg/dL Total Bilirubin (0.2-1.3) mg/dL AST (14-36) U/L ALT (9-52) U/L Alkaline Phosphatase (38-126) U/L Total Protein (6.3-8.2) g/dL Albumin (3.5-5.0) g/dL Amylase (30-110) U/L Lipase (23-300) U/L Urine Color Yellow Urine Appearance Cloudy H (Clear) Urine pH 6.0 (5.0-8.0) Ur Specific [place] 1.023 (1.001-1.035) Urine Protein Trace H (Negative) Urine Glucose (UA) Negative (Negative) Urine Ketones 2+ H (Negative) Urine Blood Moderate H (Negative) Urine Nitrite Negative (Negative) Urine Bilirubin Negative (Negative) Urine Urobilinogen 2.0 (<2.0) mg/dL Ur Leukocyte Esterase Large H (Negative) Urine RBC 3 (0-5) /hpf Urine WBC 17 H (0-5) /hpf Ur Squamous Epith Cells 4 (0-4) /hpf Urine Mucus Many H (None) /hpf Urine HCG, Qual (Not Detectd) Acetone, Qual (Negative) Disposition Clinical Impression: UTI (urinary tract infection), Nausea & vomiting Disposition: HOME SELF-CARE Condition: Good Instructions: Acute Nausea and Vomiting (ED) Additional Instructions: Please use medication as discussed. Please follow-up with family doctor in the next 2 days of symptoms have not improved. Please return to emergency room if the symptoms increase or worsen or for any other concerns. Prescriptions: Cephalexin [Keflex] 500 mg PO Q12HR 10 Days cap Ondansetron Odt [Zofran ODT] 4 mg PO Q8HR PRN #20 tab PRN Reason: Nausea Is patient prescribed a controlled substance at d/c from ED?: No Referrals: None,Stated [Primary Care Provider] - 1-2 days Time of Disposition: 11:45
[2018-09-19 10:33] LABS: Anisocytosis Slight; Basophils % (A) 0 %; Eosinophils # (A) 0.1 k/uL (0-0.7); Eosinophils % (A) 2 %; HCT 41.7 % (34.0-46.0); HGB 13.4 gm/dL (11.4-16.0); Lymphocytes # (A) 1.2 k/uL (1.0-4.8); Lymphocytes % (A) 20 %; MCH 28.1 pg (25.0-35.0); MCHC 32.2 g/dL (31.0-37.0); MCV 87.2 fL (80.0-100.0); Mean Platelet Volume 7.6; Monocytes # (A) 0.3 k/uL (0-1.0); Monocytes % (A) 5 %; Neutrophils # (A) 4.5 k/uL (1.3-7.7); Neutrophils % (A) 72 %; Platelet Count 233 k/uL (150-450); RBC 4.78 m/uL (3.80-5.40); RDW 16.1 % (11.5-15.5); WBC 6.3 k/uL (3.8-10.6)
[2018-09-19 10:45] LABS: ALT 32 U/L (9-52); AST 27 U/L (14-36); Albumin 4.3 g/dL (3.5-5.0); Alkaline Phosphatase 127 U/L (38-126); Amylase 56 U/L (30-110); Anion Gap 12 mmol/L; Blood Urea Nitrogen 14 mg/dL (7-17); Calcium 9.5 mg/dL (8.4-10.2); Carbon Dioxide 25 mmol/L (22-30); Chloride 106 mmol/L (98-107); Glucose 82 mg/dL (74-99); Lipase 64 U/L (23-300); Potassium 4.1 mmol/L (3.5-5.1); Sodium 143 mmol/L (137-145); Total Bilirubin 0.5 mg/dL (0.2-1.3); Total Protein 7.5 g/dL (6.3-8.2)
[2018-09-19 10:49] LABS: Appearance,Urine Cloudy (Clear); Bilirubin,Urine Negative (Negative); Blood,Urine Moderate (Negative); Color,Urine Yellow; Glucose,Urine (UA) Negative (Negative); Ketones,Urine 2+ (Negative); Leukocyte Esterase,Urine Large (Negative); Mucus,Urine Many /hpf; Nitrite,Urine Negative (Negative); Protein,Urine Trace (Negative); RBC,Urine 3 /hpf (0-5); Specific Gravity,Urine 1.023 (1.001-1.035); Squamous Epithelial Cell,Urine 4 /hpf (0-4)
[2018-09-19 12:02] VITALS: BP 105/67; PULSE 54
[2018-09-19 12:08] VITALS: TEMP 98
== END 2018-09-19 12:07 | disposition home or self-care (01) ==
LOC: EC 09:16
DX: N39.0 Urinary tract infection, site not specified (principal); R11.2 Nausea with vomiting, unspecified; Z87.891 Personal history of nicotine dependence; Z91.018 Allergy to other foods; Z91.010 Allergy to peanuts; Z88.2 Allergy status to sulfonamides
CPT/HCPCS: 36415; 93005; 80053; 82150; 82009; 83690; 85025; 81001; 81025; 87086; 99284; 96374; 96361; J2405

== ENCOUNTER 2018-09-22 08:35 | Emergency (ER) | payer OTHER ==
[2018-09-22 08:40] VITALS: RESP 18; TEMP 98.3
[2018-09-22] MEDS ORDERED: SODIUM CHLORIDE 0.9% 1,000 ML IV STA (09:04)
--- NOTE | 2018-09-22 09:54 | ED ---
Seizure HPI - General Chief Complaint: Seizure Stated Complaint: siezure Time Seen by Provider: 09/22/18 08:46 Source: patient, RN notes reviewed Mode of arrival: ambulatory Limitations: no limitations - History of Present Illness Initial Comments: 22-year-old female presents emergency Department chief complaint seizure. Patient states she's been having multiple seizures daily over the last few days. Patient states that she had not had any prior to this for last 7 years. She used to be on Tegretol. Patient states that she believes she is having them in her sleep but also one witnessed by mother. Patient states that she is 3 Weeks . Patient states she had no diagnosis of preeclampsia. Patient denies any issues with her blood pressure. She was gestational diabetic. Patient states that she feels that she's having seizures because she gets very confused states her face gets very flushed. Patient states either same symptoms that she has after a seizure. Patient denies any current headache , blurred vision, focal weakness, nausea vomiting. - Related Data Previous Rx's Medication Instructions Recorded Jkc-Lvyt-Rdurm Acid 1 cap PO DAILY #20 cap 01/21/18 [-U Capsule (formulary)] Cephalexin [Keflex] 500 mg PO Q6HR #20 cap 09/22/18 Ondansetron Odt [Zofran Odt] 4 mg PO Q8HR PRN #10 tab 09/22/18 Allergies Allergy/AdvReac Type Severity Reaction Status Date / Time nut - unspecified Allergy Anaphylaxis Verified 09/22/18 09:09 peanut Allergy Anaphylaxis Verified 09/22/18 09:09 Sulfa (Sulfonamide Allergy Rash/Hives Verified 09/22/18 09:09 Antibiotics) tree nut [Nut] Allergy Anaphylaxis Verified 09/22/18 09:09 Review of Systems ROS Statement: Those systems with pertinent positive or pertinent negative responses have been documented in the HPI. ROS Other: All systems not noted in ROS Statement are negative. Past Medical History Past Medical History: Seizure Disorder, Thyroid Disorder Additional Past Medical History / Comment(s): born 3 months premature has cerebral palsy, 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 barre in 2010, anx/bipolar and seizure disorder-last seizure 5 years ago History of Any Multi-Drug Resistant Organisms: None Reported Past Surgical History: No Surgical Hx Reported Additional Past Surgical History / Comment(s): no reported hx Past Anesthesia/Blood Transfusion Reactions: No Reported Reaction Additional Past Anesthesia/Blood Transfusion Reaction / Comment(s): FATHER- TAKES LONGER TO WAKE UP WITH ANESTHESIA" Past Psychological History: Anxiety, Bipolar Smoking Status: Former smoker Past Alcohol Use History: None Reported Past Drug Use History: None Reported - Past Family History Mother Family Medical History: Diabetes Mellitus, Hypertension, Seizure Disorder Additional Family Medical History / Comment(s): SVT Father History Unknown: Yes General Exam Limitations: no limitations General appearance: alert, in no apparent distress Head exam: Present: atraumatic, normocephalic, normal inspection Eye exam: Present: normal appearance, PERRL, EOMI. Absent: scleral icterus, conjunctival injection, periorbital swelling ENT exam: Present: normal exam, normal oropharynx, mucous membranes moist Neck exam: Present: normal inspection, full ROM. Absent: tenderness, meningismus, lymphadenopathy Respiratory exam: Present: normal lung sounds bilaterally. Absent: respiratory distress, wheezes, rales, rhonchi, stridor Cardiovascular Exam: Present: regular rate, normal rhythm, normal heart sounds. Absent: systolic murmur, diastolic murmur, rubs, gallop, clicks GI/Abdominal exam: Present: soft, normal bowel sounds. Absent: distended, tenderness, guarding, rebound, rigid Neurological exam: Present: alert, oriented X3, CN II-XII intact, reflexes normal. Absent: motor sensory deficit Skin exam: Present: warm, dry, intact, normal color. Absent: rash Course Vital Signs 09/22/18 08:37 Temperature 98.3 F Pulse Rate 76 Respiratory 18 Rate Blood Pressure 144/87 O2 Sat by Pulse 96 Oximetry Medical Decision Making - Medical Decision Making 22-year-old female presented to emergency department for possible seizure. Patient does have a history. Patient had lab work, EKG, drug screen, urinalysis. She does have mild dehydration, evidence of urinary tract infection. Patient also had mild hyperglycemia. She does feel improved after IV fluids, eating. Patient will be discharged with antiemetics, follow-up with Dr. Siegel her neurologist and return for any worsening symptoms. We did discuss no driving for 6 months and until cleared by neurology. - Lab Data Result diagrams: 09/22/18 09:45 09/22/18 09:45 Lab Results 09/22/18 09/22/18 09/22/18 Range/Units 09:45 09:45 09:45 WBC 5.8 (3.8-10.6) k/uL RBC 4.89 (3.80-5.40) m/uL Hgb 13.7 (11.4-16.0) gm/dL Hct 42.6 (34.0-46.0) % MCV 87.1 (80.0-100.0) fL MCH 27.9 (25.0-35.0) pg MCHC 32.0 (31.0-37.0) g/dL RDW 16.2 H (11.5-15.5) % Plt Count 228 (150-450) k/uL Neutrophils % 69 % Lymphocytes % 22 % Monocytes % 5 % Eosinophils % 2 % Basophils % 0 % Neutrophils # 4.0 (1.3-7.7) k/uL Lymphocytes # 1.3 (1.0-4.8) k/uL Monocytes # 0.3 (0-1.0) k/uL Eosinophils # 0.1 (0-0.7) k/uL Basophils # 0.0 (0-0.2) k/uL Anisocytosis Slight Sodium 144 (137-145) mmol/L Potassium 4.3 (3.5-5.1) mmol/L Chloride 106 (98-107) mmol/L Carbon Dioxide 25 (22-30) mmol/L Anion Gap 13 mmol/L BUN 12 (7-17) mg/dL Creatinine 0.83 (0.52-1.04) mg/dL Est GFR (CKD-EPI)AfAm >90 (>60 ml/min/1.73 sqM) Est GFR (CKD-EPI)NonAf >90 (>60 ml/min/1.73 sqM) Glucose 70 L (74-99) mg/dL Uric Acid 8.7 H (3.7-7.4) mg/dL Calcium 9.6 (8.4-10.2) mg/dL Total Bilirubin 0.6 (0.2-1.3) mg/dL AST 27 (14-36) U/L ALT 33 (9-52) U/L Alkaline Phosphatase 115 (38-126) U/L Lactate Dehydrogenase 549 (313-618) U/L Total Protein 7.5 (6.3-8.2) g/dL Albumin 4.3 (3.5-5.0) g/dL Urine Color Yellow Urine Appearance Cloudy H (Clear) Urine pH 6.0 (5.0-8.0) Ur Specific [place] 1.024 (1.001-1.035) Urine Protein 1+ H (Negative) Urine Glucose (UA) Negative (Negative) Urine Ketones 3+ H (Negative) Urine Blood Large H (Negative) Urine Nitrite Negative (Negative) Urine Bilirubin Negative (Negative) Urine Urobilinogen 2.0 (<2.0) mg/dL Ur Leukocyte Esterase Large H (Negative) Urine RBC 7 H (0-5) /hpf Urine WBC 72 H (0-5) /hpf Ur Squamous Epith Cells 17 H (0-4) /hpf Urine Bacteria Occasional H (None) /hpf Urine Mucus Few H (None) /hpf Urine HCG, Qual (Not Detectd) Urine Opiates Screen Not Detected (NotDetected) Ur Oxycodone Screen Not Detected (NotDetected) Urine Methadone Screen Not Detected (NotDetected) Ur Propoxyphene Screen Not Detected (NotDetected) Ur Barbiturates Screen Not Detected (NotDetected) U Tricyclic Antidepress Not Detected (NotDetected) Ur Phencyclidine Scrn Not Detected (NotDetected) Ur Amphetamines Screen Not Detected (NotDetected) U Methamphetamines Scrn Not Detected (NotDetected) U Benzodiazepines Scrn Not Detected (NotDetected) Urine Cocaine Screen Not Detected (NotDetected) U Marijuana (THC) Screen Not Detected (NotDetected) 09/22/18 Range/Units 09:45 WBC (3.8-10.6) k/uL RBC (3.80-5.40) m/uL Hgb (11.4-16.0) gm/dL Hct (34.0-46.0) % MCV (80.0-100.0) fL MCH (25.0-35.0) pg MCHC (31.0-37.0) g/dL RDW (11.5-15.5) % Plt Count (150-450) k/uL Neutrophils % % Lymphocytes % % Monocytes % % Eosinophils % % Basophils % % Neutrophils # (1.3-7.7) k/uL Lymphocytes # (1.0-4.8) k/uL Monocytes # (0-1.0) k/uL Eosinophils # (0-0.7) k/uL Basophils # (0-0.2) k/uL Anisocytosis Sodium (137-145) mmol/L Potassium (3.5-5.1) mmol/L Chloride (98-107) mmol/L Carbon Dioxide (22-30) mmol/L Anion Gap mmol/L BUN (7-17) mg/dL Creatinine (0.52-1.04) mg/dL Est GFR (CKD-EPI)AfAm (>60 ml/min/1.73 sqM) Est GFR (CKD-EPI)NonAf (>60 ml/min/1.73 sqM) Glucose (74-99) mg/dL Uric Acid (3.7-7.4) mg/dL Calcium (8.4-10.2) mg/dL Total Bilirubin (0.2-1.3) mg/dL AST (14-36) U/L ALT (9-52) U/L Alkaline Phosphatase (38-126) U/L Lactate Dehydrogenase (313-618) U/L Total Protein (6.3-8.2) g/dL Albumin (3.5-5.0) g/dL Urine Color Urine Appearance (Clear) Urine pH (5.0-8.0) Ur Specific [place] (1.001-1.035) Urine Protein (Negative) Urine Glucose (UA) (Negative) Urine Ketones (Negative) Urine Blood (Negative) Urine Nitrite (Negative) Urine Bilirubin (Negative) Urine Urobilinogen (<2.0) mg/dL Ur Leukocyte Esterase (Negative) Urine RBC (0-5) /hpf Urine WBC (0-5) /hpf Ur Squamous Epith Cells (0-4) /hpf Urine Bacteria (None) /hpf Urine Mucus (None) /hpf Urine HCG, Qual Not Detected (Not Detectd) Urine Opiates Screen (NotDetected) Ur Oxycodone Screen (NotDetected) Urine Methadone Screen (NotDetected) Ur Propoxyphene Screen (NotDetected) Ur Barbiturates Screen (NotDetected) U Tricyclic Antidepress (NotDetected) Ur Phencyclidine Scrn (NotDetected) Ur Amphetamines Screen (NotDetected) U Methamphetamines Scrn (NotDetected) U Benzodiazepines Scrn (NotDetected) Urine Cocaine Screen (NotDetected) U Marijuana (THC) Screen (NotDetected) Disposition Clinical Impression: Seizure disorder, Nausea & vomiting, Dehydration, UTI (urinary tract infection) Disposition: HOME SELF-CARE Condition: Stable Instructions: Acute Nausea and Vomiting (ED) Additional Instructions: Please return to the Emergency Department if symptoms worsen or any other concerns. Prescriptions: Cephalexin [Keflex] 500 mg PO Q6HR #20 cap Ondansetron Odt [Zofran Odt] 4 mg PO Q8HR PRN #10 tab PRN Reason: Nausea Is patient prescribed a controlled substance at d/c from ED?: No Referrals: Sherrie Siegel MD [STAFF PHYSICIAN] - 1-2 days Time of Disposition: 11:15
[2018-09-22 10:16] LABS: Anisocytosis Slight; Basophils % (A) 0 %; Eosinophils # (A) 0.1 k/uL (0-0.7); Eosinophils % (A) 2 %; HCT 42.6 % (34.0-46.0); HGB 13.7 gm/dL (11.4-16.0); Lymphocytes # (A) 1.3 k/uL (1.0-4.8); Lymphocytes % (A) 22 %; MCH 27.9 pg (25.0-35.0); MCV 87.1 fL (80.0-100.0); Mean Platelet Volume 7.7; Monocytes # (A) 0.3 k/uL (0-1.0); Monocytes % (A) 5 %; Neutrophils % (A) 69 %; Platelet Count 228 k/uL (150-450); RBC 4.89 m/uL (3.80-5.40); RDW 16.2 % (11.5-15.5); WBC 5.8 k/uL (3.8-10.6)
[2018-09-22 10:26] LABS: ALT 33 U/L (9-52); AST 27 U/L (14-36); Albumin 4.3 g/dL (3.5-5.0); Alkaline Phosphatase 115 U/L (38-126); Anion Gap 13 mmol/L; Blood Urea Nitrogen 12 mg/dL (7-17); Calcium 9.6 mg/dL (8.4-10.2); Carbon Dioxide 25 mmol/L (22-30); Chloride 106 mmol/L (98-107); Glucose 70 mg/dL (74-99); LDH 549 U/L (313-618); Potassium 4.3 mmol/L (3.5-5.1); Sodium 144 mmol/L (137-145); Total Bilirubin 0.6 mg/dL (0.2-1.3); Total Protein 7.5 g/dL (6.3-8.2); Uric Acid 8.7 mg/dL (3.7-7.4)
[2018-09-22 10:29] LABS: Amphetamine Screen,Urine Not Detected (NotDetected); Barbiturate Screen,Urine Not Detected (NotDetected); Benzodiazepines Screen,Urine Not Detected (NotDetected); Cocaine Screen,Urine Not Detected (NotDetected); Methadone Screen, Urine Not Detected (NotDetected); Opiate Screen,Urine Not Detected (NotDetected); Oxycodone Screen, Urine Not Detected (NotDetected); Phencyclidine Screen,Urine Not Detected (NotDetected); Tricyclic Antidepressant,Urine Not Detected (NotDetected); Urn Cannabinoid Scrn Not Detected (NotDetected)
[2018-09-22 10:45] LABS: Appearance,Urine Cloudy (Clear); Bacteria,Urine Occasional /hpf; Bilirubin,Urine Negative (Negative); Blood,Urine Large (Negative); Color,Urine Yellow; Glucose,Urine (UA) Negative (Negative); Ketones,Urine 3+ (Negative); Leukocyte Esterase,Urine Large (Negative); Mucus,Urine Few /hpf; Nitrite,Urine Negative (Negative); Protein,Urine 1+ (Negative); RBC,Urine 7 /hpf (0-5); Specific Gravity,Urine 1.024 (1.001-1.035); Squamous Epithelial Cell,Urine 17 /hpf (0-4); WBC,Urine 72 /hpf (0-5)
[2018-09-22 11:33] VITALS: BP 126/89; PULSE 70
== END 2018-09-22 11:31 | disposition home or self-care (01) ==
LOC: EC 08:35
DX: O99.355 Diseases of the nervous system complicating the puerperium (principal); G40.909 Epilepsy, unspecified, not intractable, without status epilepticus; O86.20 Urinary tract infection following delivery, unspecified; O99.285 Endocrine, nutritional and metabolic diseases complicating the puerperium; E86.0 Dehydration; O90.89 Other complications of the puerperium, not elsewhere classified; R11.2 Nausea with vomiting, unspecified; R73.9 Hyperglycemia, unspecified; Z87.891 Personal history of nicotine dependence; Z88.2 Allergy status to sulfonamides; Z91.010 Allergy to peanuts; Z91.018 Allergy to other foods; Z82.0 Family history of epilepsy and other diseases of the nervous system
CPT/HCPCS: 36415; 80053; 80306; 81001; 81025; 83615; 84550; 85025; 93005; 96360; 96361; 99284

== ENCOUNTER 2018-09-25 17:22 | Emergency (ER) | payer OTHER ==
[2018-09-25 17:50] VITALS: BP 128/81; PULSE 67; RESP 18; TEMP 98.5
[2018-09-25] MEDS ORDERED: SODIUM CHLORIDE 0.9% 1,000 ML IV STA ×2 (19:29)
[2018-09-25] MEDS ORDERED: KETOROLAC 30 MG/ML 1 ML VIAL IVP STA (19:30)
[2018-09-25] MEDS ORDERED: ORPHENADRINE 30 MG/ML 2 ML VIAL IVP STA (19:30)
[2018-09-25] MEDS ORDERED: ONDANSETRON 4 MG/2 ML VIAL IVP STA (19:30)
--- NOTE | 2018-09-25 19:32 | ED ---
General Adult HPI - General Source: patient, RN notes reviewed, old records reviewed Mode of arrival: ambulatory Limitations: no limitations <Claudia Crowell - Last Filed: 09/26/18 23:18> <Paige Bonilla - Last Filed: 10/01/18 04:58> - General Chief complaint: Neuro Symptoms/Deficit Stated complaint: POSS SEIZURE, POSS CP Time Seen by Provider: 09/25/18 19:14 - History of Present Illness Initial comments: 22-year-old female presents emergency Department today with complaint of questionable seizure activity. Patient states that she has been having pain in the back of her head and neck reading down her left arm. She states that her hands will cramp up and be numb and tingling. Patient states she's been having symptoms adamantly for the past few weeks. Patient thinks that she needs to be back on Tegretol her previous seizure medication. Patient reports that she does have some pain in her neck and back. Whenever she takes Motrin Tylenol makes her very sleepy. Patient states that she is supposed to follow up with Dr. Regalado on the . Patient was seen in the emergency department 3 daysor similar complaints. Patient is that sinus or urinary tract infection and started on antibiotics. (Claudia Crowell) - Related Data Previous Rx's Medication Instructions Recorded Gfn-Ipzv-Yyodg Acid 1 cap PO DAILY #20 cap 01/21/18 [-U Capsule (formulary)] Cephalexin [Keflex] 500 mg PO Q6HR #20 cap 09/22/18 Ondansetron Odt [Zofran Odt] 4 mg PO Q8HR PRN #10 tab 09/22/18 carBAMazepine [TEGretol] 200 mg PO Q12H #10 tablet 09/25/18 Allergies Allergy/AdvReac Type Severity Reaction Status Date / Time nut - unspecified Allergy Anaphylaxis Verified 09/25/18 19:16 peanut Allergy Anaphylaxis Verified 09/25/18 19:16 Sulfa (Sulfonamide Allergy Rash/Hives Verified 09/25/18 19:16 Antibiotics) tree nut [Nut] Allergy Anaphylaxis Verified 09/25/18 19:16 Review of Systems ROS Other: All systems not noted in ROS Statement are negative. <Claudia Crowell - Last Filed: 09/26/18 23:18> ROS Other: All systems not noted in ROS Statement are negative. <Paige Bonilla Livier - Last Filed: 10/01/18 04:58> ROS Statement: Those systems with pertinent positive or pertinent negative responses have been documented in the HPI. Past Medical History Past Medical History: Seizure Disorder, Thyroid Disorder Additional Past Medical History / Comment(s): born 3 months premature has cerebral palsy, 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 barre in 2011, anx/bipolar and seizure disorder-last seizure 5 years ago History of Any Multi-Drug Resistant Organisms: None Reported Past Surgical History: No Surgical Hx Reported Additional Past Surgical History / Comment(s): no reported hx Past Anesthesia/Blood Transfusion Reactions: No Reported Reaction Additional Past Anesthesia/Blood Transfusion Reaction / Comment(s): FATHER- TAKES LONGER TO WAKE UP WITH ANESTHESIA" Past Psychological History: Anxiety, Bipolar Smoking Status: Former smoker Past Alcohol Use History: None Reported Past Drug Use History: None Reported - Past Family History Mother Family Medical History: Diabetes Mellitus, Hypertension, Seizure Disorder Additional Family Medical History / Comment(s): SVT Father History Unknown: Yes <Claudia Crowell - Last Filed: 09/26/18 23:18> General Exam Limitations: no limitations General appearance: alert, in no apparent distress Head exam: Present: atraumatic, normocephalic, normal inspection Eye exam: Present: normal appearance, PERRL, EOMI. Absent: scleral icterus, conjunctival injection, periorbital swelling ENT exam: Present: normal exam, mucous membranes moist Neck exam: Present: normal inspection. Absent: tenderness, meningismus, lymphadenopathy Respiratory exam: Present: normal lung sounds bilaterally. Absent: respiratory distress, wheezes, rales, rhonchi, stridor Cardiovascular Exam: Present: regular rate, normal rhythm, normal heart sounds. Absent: systolic murmur, diastolic murmur, rubs, gallop, clicks GI/Abdominal exam: Present: soft, normal bowel sounds. Absent: distended, tenderness, guarding, rebound, rigid Extremities exam: Present: normal inspection, full ROM, normal capillary refill. Absent: tenderness, pedal edema, joint swelling, calf tenderness Back exam: Present: normal inspection Neurological exam: Present: alert, oriented X3, CN II-XII intact Psychiatric exam: Present: normal affect, normal mood Skin exam: Present: warm, dry, intact, normal color. Absent: rash <Claudia Crowell - Last Filed: 09/26/18 23:18> <Paige Bonilla - Last Filed: 10/01/18 04:58> - General Exam Comments Initial Comments: 22-year-old female. Alert and oriented. Patient appears in no significant distress. (Claudia Crowell) Vital Signs 09/25/18 17:46 Temperature 98.5 F Pulse Rate 67 Respiratory 18 Rate Blood Pressure 128/81 O2 Sat by Pulse 96 Oximetry Medical Decision Making - Lab Data Result diagrams: 09/25/18 19:55 09/25/18 19:55 <Claudia Crowell - Last Filed: 09/26/18 23:18> - Lab Data Result diagrams: 09/25/18 19:55 09/25/18 19:55 <Paige Bonilla - Last Filed: 10/01/18 04:58> - Medical Decision Making 22-year-old female presents returns today with chief complaint of paresthesias left arm. She's been having similar complaint the past few weeks. She simmers and paravertebral 3 days of similar complaints. She has no neurological deficits. Full range of motion. Normal pulses and sensation. This time Patient EKG was reviewed and normal. Lab work was unremarkable. Down time occurred and unable to see results of urinalysis. Patient was anxious for discharge per she was feeling better after medication. Do that with patient's pain be having nummular headaches and muscle spasms within the neck causing some of her headache in pain in the arm. At this time patient's family also requests that she be restarted on her seizure medication she has been off of that. They follow-up with neurology in 2 days. I discussed that we can resume Tegretol this time with low-dose and she can follow-up with her neurologist for further prescriptions. (Claudia Crowell) I was available for consultation in the emergency department. The history and physical exam were done by the midlevel provider. I was consulted for this patient's care. I reviewed the case with the midlevel provider and based on their presentation of the patient, I agree with the assessment, medical decision making and plan of care as documented. (Paige Bonilla) - Lab Data Lab Results 09/25/18 09/25/18 09/25/18 Range/Units 19:55 19:55 19:55 WBC 6.7 (3.8-10.6) k/uL RBC 4.70 (3.80-5.40) m/uL Hgb 12.9 (11.4-16.0) gm/dL Hct 40.6 (34.0-46.0) % MCV 86.4 (80.0-100.0) fL MCH 27.5 (25.0-35.0) pg MCHC 31.8 (31.0-37.0) g/dL RDW 16.2 H (11.5-15.5) % Plt Count 211 (150-450) k/uL Neutrophils % 57 % Lymphocytes % 33 % Monocytes % 5 % Eosinophils % 3 % Basophils % 0 % Neutrophils # 3.8 (1.3-7.7) k/uL Lymphocytes # 2.2 (1.0-4.8) k/uL Monocytes # 0.3 (0-1.0) k/uL Eosinophils # 0.2 (0-0.7) k/uL Basophils # 0.0 (0-0.2) k/uL Anisocytosis Slight PT 10.5 (9.0-12.0) sec INR 1.0 (<1.2) APTT 26.5 (22.0-30.0) sec Sodium 141 (137-145) mmol/L Potassium 3.7 (3.5-5.1) mmol/L Chloride 106 (98-107) mmol/L Carbon Dioxide 26 (22-30) mmol/L Anion Gap 9 mmol/L BUN 10 (7-17) mg/dL Creatinine 0.78 (0.52-1.04) mg/dL Est GFR (CKD-EPI)AfAm >90 (>60 ml/min/1.73 sqM) Est GFR (CKD-EPI)NonAf >90 (>60 ml/min/1.73 sqM) Glucose 77 (74-99) mg/dL Calcium 9.1 (8.4-10.2) mg/dL Total Bilirubin 0.4 (0.2-1.3) mg/dL AST 19 (14-36) U/L ALT 33 (9-52) U/L Alkaline Phosphatase 95 (38-126) U/L Total Protein 6.8 (6.3-8.2) g/dL Albumin 4.1 (3.5-5.0) g/dL Urine Color Urine Appearance (Clear) Urine pH (5.0-8.0) Ur Specific [place] (1.001-1.035) Urine Protein (Negative) Urine Glucose (UA) (Negative) Urine Ketones (Negative) Urine Blood (Negative) Urine Nitrite (Negative) Urine Bilirubin (Negative) Urine Urobilinogen (<2.0) mg/dL Ur Leukocyte Esterase (Negative) Urine RBC (0-5) /hpf Urine WBC (0-5) /hpf Ur Squamous Epith Cells (0-4) /hpf Urine Mucus (None) /hpf 09/25/18 Range/Units 21:05 WBC (3.8-10.6) k/uL RBC (3.80-5.40) m/uL Hgb (11.4-16.0) gm/dL Hct (34.0-46.0) % MCV (80.0-100.0) fL MCH (25.0-35.0) pg MCHC (31.0-37.0) g/dL RDW (11.5-15.5) % Plt Count (150-450) k/uL Neutrophils % % Lymphocytes % % Monocytes % % Eosinophils % % Basophils % % Neutrophils # (1.3-7.7) k/uL Lymphocytes # (1.0-4.8) k/uL Monocytes # (0-1.0) k/uL Eosinophils # (0-0.7) k/uL Basophils # (0-0.2) k/uL Anisocytosis PT (9.0-12.0) sec INR (<1.2) APTT (22.0-30.0) sec Sodium (137-145) mmol/L Potassium (3.5-5.1) mmol/L Chloride (98-107) mmol/L Carbon Dioxide (22-30) mmol/L Anion Gap mmol/L BUN (7-17) mg/dL Creatinine (0.52-1.04) mg/dL Est GFR (CKD-EPI)AfAm (>60 ml/min/1.73 sqM) Est GFR (CKD-EPI)NonAf (>60 ml/min/1.73 sqM) Glucose (74-99) mg/dL Calcium (8.4-10.2) mg/dL Total Bilirubin (0.2-1.3) mg/dL AST (14-36) U/L ALT (9-52) U/L Alkaline Phosphatase (38-126) U/L Total Protein (6.3-8.2) g/dL Albumin (3.5-5.0) g/dL Urine Color Yellow Urine Appearance Cloudy H (Clear) Urine pH 6.5 (5.0-8.0) Ur Specific [place] 1.011 (1.001-1.035) Urine Protein Trace H (Negative) Urine Glucose (UA) Negative (Negative) Urine Ketones Negative (Negative) Urine Blood Trace H (Negative) Urine Nitrite Negative (Negative) Urine Bilirubin Negative (Negative) Urine Urobilinogen <2.0 (<2.0) mg/dL Ur Leukocyte Esterase Large H (Negative) Urine RBC 13 H (0-5) /hpf Urine WBC >182 H (0-5) /hpf Ur Squamous Epith Cells 23 H (0-4) /hpf Urine Mucus Many H (None) /hpf 09/26/18 23:19 EKG performed at 2008 showed normal sinus rhythm, specifically there are no. Normally QT. Ventricular 84 bpm. Multiple 60 most seconds. QRS duration 74 ms. QT QTc is 360/434 ms. (Claudia Crowell) Disposition Is patient prescribed a controlled substance at d/c from ED?: No Time of Disposition: 21:32 <Claudia Crowell - Last Filed: 09/26/18 23:18> <Paige Bonilla - Last Filed: 10/01/18 04:58> Clinical Impression: Cervical paraspinal muscle spasm, Paresthesia Disposition: HOME SELF-CARE Condition: Good Prescriptions: carBAMazepine [TEGretol] 200 mg PO Q12H #10 tablet Referrals: None,Stated [Primary Care Provider] - 1-2 days Sherrie Siegel MD [STAFF PHYSICIAN] - 1-2 days
[2018-09-25 20:29] LABS: Anisocytosis Slight; Basophils % (A) 0 %; Eosinophils # (A) 0.2 k/uL (0-0.7); Eosinophils % (A) 3 %; HCT 40.6 % (34.0-46.0); HGB 12.9 gm/dL (11.4-16.0); Lymphocytes # (A) 2.2 k/uL (1.0-4.8); Lymphocytes % (A) 33 %; MCH 27.5 pg (25.0-35.0); MCHC 31.8 g/dL (31.0-37.0); MCV 86.4 fL (80.0-100.0); Mean Platelet Volume 7.6; Monocytes # (A) 0.3 k/uL (0-1.0); Monocytes % (A) 5 %; Neutrophils # (A) 3.8 k/uL (1.3-7.7); Neutrophils % (A) 57 %; Platelet Count 211 k/uL (150-450); RDW 16.2 % (11.5-15.5); WBC 6.7 k/uL (3.8-10.6)
[2018-09-25 20:31] LABS: ALT 33 U/L (9-52); AST 19 U/L (14-36); Albumin 4.1 g/dL (3.5-5.0); Alkaline Phosphatase 95 U/L (38-126); Anion Gap 9 mmol/L; Blood Urea Nitrogen 10 mg/dL (7-17); Calcium 9.1 mg/dL (8.4-10.2); Carbon Dioxide 26 mmol/L (22-30); Chloride 106 mmol/L (98-107); Glucose 77 mg/dL (74-99); Partial Thromboplastin Time 26.5 sec (22.0-30.0); Potassium 3.7 mmol/L (3.5-5.1); Prothrombin Time 10.5 sec (9.0-12.0); Sodium 141 mmol/L (137-145); Total Bilirubin 0.4 mg/dL (0.2-1.3); Total Protein 6.8 g/dL (6.3-8.2)
[2018-09-26 02:41] LABS: Appearance,Urine Cloudy (Clear); Bilirubin,Urine Negative (Negative); Blood,Urine Trace (Negative); Color,Urine Yellow; Glucose,Urine (UA) Negative (Negative); Ketones,Urine Negative (Negative); Leukocyte Esterase,Urine Large (Negative); Mucus,Urine Many /hpf; Nitrite,Urine Negative (Negative); PH, Urine 6.5 (5.0-8.0); Protein,Urine Trace (Negative); RBC,Urine 13 /hpf (0-5); Specific Gravity,Urine 1.011 (1.001-1.035); Squamous Epithelial Cell,Urine 23 /hpf (0-4); Urobilinogen,Urine <2.0 mg/dL (<2.0); WBC,Urine >182 /hpf (0-5)
== END 2018-09-25 22:15 | disposition home or self-care (01) ==
LOC: EC 17:22
DX: M62.830 Muscle spasm of back (principal); R20.2 Paresthesia of skin; M79.602 Pain in left arm; R51 Headache; Z87.891 Personal history of nicotine dependence; Z91.018 Allergy to other foods; Z91.010 Allergy to peanuts; Z88.2 Allergy status to sulfonamides
CPT/HCPCS: 36415; 93005; 80053; 85025; 85610; 85730; 81001; 99284; 96374; 96375 ×2; J2360; J2405; J1885

== ENCOUNTER 2018-10-17 18:13 | Emergency (ER) | payer OTHER ==
--- NOTE | 2018-10-17 19:11 | ED ---
URI HPI - General Chief Complaint: Upper Respiratory Infection Stated Complaint: cough/congestion/abdominal pain Time Seen by Provider: 10/17/18 19:00 Source: patient, RN notes reviewed Mode of arrival: ambulatory Limitations: no limitations - History of Present Illness Initial Comments: 22-year-old female sent emergency Department chief complaint of cough and cold- like symptoms for last 3-4 days. Patient states that hurts daughter at home has croup, her son who is 1-month-old is positive influenza admitted to the hospital. Patient states she has productive cough, sinus congestion. She has not taken any iybm-oqq-aertkll cough and cold medications. No reported fever. Denies any chest pain or shortness of breath. She states she has sinus pressure and earache. - Related Data Previous Rx's Medication Instructions Recorded Dnq-Rupd-Hswuw Acid 1 cap PO DAILY #20 cap 01/21/18 [-U Capsule (formulary)] Cephalexin [Keflex] 500 mg PO Q6HR #20 cap 09/22/18 Ondansetron Odt [Zofran Odt] 4 mg PO Q8HR PRN #10 tab 09/22/18 carBAMazepine [TEGretol] 200 mg PO Q12H #10 tablet 09/25/18 Oseltamivir [Tamiflu] 75 mg PO Q12HR #10 cap 10/17/18 Allergies Allergy/AdvReac Type Severity Reaction Status Date / Time nut - unspecified Allergy Anaphylaxis Verified 10/17/18 18:55 peanut Allergy Anaphylaxis Verified 10/17/18 18:55 Sulfa (Sulfonamide Allergy Rash/Hives Verified 10/17/18 18:55 Antibiotics) tree nut [Nut] Allergy Anaphylaxis Verified 10/17/18 18:55 Review of Systems ROS Statement: Those systems with pertinent positive or pertinent negative responses have been documented in the HPI. ROS Other: All systems not noted in ROS Statement are negative. Past Medical History Past Medical History: Seizure Disorder, Thyroid Disorder Additional Past Medical History / Comment(s): cerebral palsy, gullian barre in 2010 History of Any Multi-Drug Resistant Organisms: None Reported Past Surgical History: No Surgical Hx Reported Additional Past Surgical History / Comment(s): no reported hx Past Anesthesia/Blood Transfusion Reactions: No Reported Reaction Additional Past Anesthesia/Blood Transfusion Reaction / Comment(s): FATHER- TAKES LONGER TO WAKE UP WITH ANESTHESIA" Past Psychological History: Anxiety, Bipolar Smoking Status: Former smoker Past Alcohol Use History: None Reported Past Drug Use History: None Reported - Past Family History Mother Family Medical History: Diabetes Mellitus, Hypertension, Seizure Disorder Additional Family Medical History / Comment(s): SVT Father History Unknown: Yes General Exam Limitations: no limitations General appearance: alert, in no apparent distress Head exam: Present: atraumatic, normocephalic, normal inspection Eye exam: Present: normal appearance, PERRL, EOMI. Absent: scleral icterus, conjunctival injection, periorbital swelling ENT exam: Present: normal exam, normal oropharynx, mucous membranes moist, TM's normal bilaterally, normal external ear exam Neck exam: Present: normal inspection, full ROM. Absent: tenderness, meningismus, lymphadenopathy Respiratory exam: Present: normal lung sounds bilaterally. Absent: respiratory distress, wheezes, rales, rhonchi, stridor Cardiovascular Exam: Present: regular rate, normal rhythm, normal heart sounds. Absent: systolic murmur, diastolic murmur, rubs, gallop, clicks GI/Abdominal exam: Present: soft, normal bowel sounds. Absent: distended, tenderness, guarding, rebound, rigid Course Vital Signs 10/17/18 10/17/18 18:52 19:31 Temperature 98.1 F Pulse Rate 90 89 Respiratory 18 16 Rate Blood Pressure 120/82 124/88 O2 Sat by Pulse 97 95 Oximetry Medical Decision Making - Medical Decision Making 22-year-old female presented emergency Department chief complaint of cough congestion. Patient's influenza B positive. Patient will placed on antiviral secondary to sun been inpatient, multiple contacts at home. - Lab Data Lab Results 10/17/18 Range/Units 19:10 Influenza Type A RNA Not Detected (Not Detectd) Influenza Type B (PCR) Detected H (Not Detectd) Disposition Clinical Impression: Influenza B Disposition: HOME SELF-CARE Condition: Stable Instructions: Influenza (ED) Additional Instructions: Please return to the Emergency Department if symptoms worsen or any other concerns. Prescriptions: Oseltamivir [Tamiflu] 75 mg PO Q12HR #10 cap Is patient prescribed a controlled substance at d/c from ED?: No Referrals: Garland Lopez MD [Primary Care Provider] - 1-2 days Time of Disposition: 19:42
[2018-10-17 19:32] VITALS: BP 124/88; PULSE 89; RESP 16
--- NOTE | 2018-10-17 20:00 | XR ---
EXAMINATION TYPE: XR chest 2V DATE OF EXAM: 10/17/2018 COMPARISON: 08/13/2017 HISTORY: Cough TECHNIQUE: Frontal and lateral views of the chest are obtained. FINDINGS: Heart and mediastinum are normal. Lungs are clear. Diaphragm is normal. Bony thorax appear s normal. IMPRESSION: Normal chest. No adverse change compared to old exam.
[2018-10-17 20:02] VITALS: TEMP 98.6
== END 2018-10-17 20:02 | disposition home or self-care (01) ==
LOC: EC 18:13
DX: J10.1 Influenza due to other identified influenza virus with other respiratory manifestations (principal); H92.09 Otalgia, unspecified ear; Z87.891 Personal history of nicotine dependence; Z91.010 Allergy to peanuts; Z91.018 Allergy to other foods; Z88.2 Allergy status to sulfonamides
CPT/HCPCS: 71046; 87502; 99283

== ENCOUNTER 2018-11-13 23:38 | Emergency (ER) | payer OTHER ==
--- NOTE | 2018-11-14 01:00 | ED ---
Abdominal Pain HPI <Tasha Bermeo - Last Filed: 11/14/18 02:29> - General Source: patient Mode of arrival: ambulatory Limitations: no limitations - History of Present Illness MD Complaint: abdominal pain Onset/Timin -: hour(s) Location: suprapubic Radiation: none Migration to: no migration Severity: moderate Quality: cramping, sharp Consistency: constant Improves With: nothing Worsens With: nothing Associated Symptoms: other (Vaginal discharge) - Related Data LMP Date: 11/06/18 LMP (females 10-50): this week <Tony Solis - Last Filed: 11/14/18 03:21> - General Chief Complaint: Abdominal Pain Stated Complaint: abd pain Time Seen by Provider: 11/14/18 00:06 - History of Present Illness Initial Comments: This patient is a 23-year-old woman who presents to be evaluated for lower abdominal pain and vaginal discharge. The patient states that the pain started tonight around 7 PM. She states that she had been just sitting at the time and she noticed a sharp stabbing pain in the suprapubic area. The patient had approximately 2 weeks of a whitish vaginal discharge that is been going on before the onset of all this. The patient states that her last menstrual period was on November 06 and she states that it seemed to occur early. The patient denies any other symptoms. No nausea or vomiting. No change in bowel movements. No change in urination. (Tony Solis) - Related Data Previous Rx's Medication Instructions Recorded carBAMazepine [TEGretol] 200 mg PO Q12H #10 tablet 09/25/18 Oseltamivir [Tamiflu] 75 mg PO Q12HR #10 cap 10/17/18 metroNIDAZOLE [Flagyl] 500 mg PO BID #14 tab 11/14/18 Allergies Allergy/AdvReac Type Severity Reaction Status Date / Time nut - unspecified Allergy Anaphylaxis Verified 10/17/18 19:46 peanut Allergy Anaphylaxis Verified 10/17/18 19:46 Sulfa (Sulfonamide Allergy Rash/Hives Verified 10/17/18 19:46 Antibiotics) tree nut [Nut] Allergy Anaphylaxis Verified 10/17/18 19:46 Review of Systems ROS Other: All systems not noted in ROS Statement are negative. <Tasha Bermeo - Last Filed: 11/14/18 02:29> ROS Other: All systems not noted in ROS Statement are negative. Constitutional: Denies: fever, chills Respiratory: Denies: cough, dyspnea Cardiovascular: Denies: chest pain, palpitations, edema, syncope Gastrointestinal: Reports: abdominal pain. Denies: nausea, vomiting, diarrhea, constipation Genitourinary: Reports: discharge, abnormal menses. Denies: urgency, dysuria, frequency, hematuria Musculoskeletal: Denies: back pain Skin: Denies: rash Neurological: Denies: headache, weakness <Tony Solis - Last Filed: 11/14/18 03:21> ROS Statement: Those systems with pertinent positive or pertinent negative responses have been documented in the HPI. Past Medical History Past Medical History: Seizure Disorder, Thyroid Disorder Additional Past Medical History / Comment(s): cerebral palsy, gullian barre in 2010 History of Any Multi-Drug Resistant Organisms: None Reported Past Surgical History: No Surgical Hx Reported Additional Past Surgical History / Comment(s): no reported hx Past Anesthesia/Blood Transfusion Reactions: No Reported Reaction Additional Past Anesthesia/Blood Transfusion Reaction / Comment(s): FATHER- TAKES LONGER TO WAKE UP WITH ANESTHESIA" Past Psychological History: Anxiety, Bipolar Smoking Status: Former smoker Past Alcohol Use History: None Reported Past Drug Use History: None Reported - Past Family History Mother Family Medical History: Diabetes Mellitus, Hypertension, Seizure Disorder Additional Family Medical History / Comment(s): SVT Father History Unknown: Yes <Tony Solis - Last Filed: 11/14/18 03:21> General Exam External exam: Present: normal external exam Speculum exam: Present: vaginal discharge (Milky white vaginal discharge) By manual exam: Present: cervical motion tenderness (mild), adnexal tenderness ( mild). Absent: adnexal mass, uterine tenderness <Tasha Bermeo - Last Filed: 11/14/18 02:29> Limitations: no limitations General appearance: alert, in no apparent distress Head exam: Present: atraumatic, normocephalic Eye exam: Present: normal appearance. Absent: scleral icterus, conjunctival injection ENT exam: Present: normal oropharynx Neck exam: Present: normal inspection Respiratory exam: Present: normal lung sounds bilaterally. Absent: respiratory distress, wheezes, rales, rhonchi, stridor Cardiovascular Exam: Present: regular rate, normal rhythm, normal heart sounds. Absent: systolic murmur, diastolic murmur, rubs, gallop GI/Abdominal exam: Present: soft. Absent: distended, tenderness, guarding, rebound, rigid, mass, pulsatile mass, hernia Extremities exam: Present: normal inspection, normal capillary refill. Absent: pedal edema, calf tenderness Back exam: Present: normal inspection. Absent: CVA tenderness (R), CVA tenderness (L) Neurological exam: Present: alert Skin exam: Present: warm, dry, intact, normal color. Absent: rash <Tony Solis - Last Filed: 11/14/18 03:21> Vital Signs 11/13/18 23:47 Temperature 98.3 F Pulse Rate 75 Respiratory 16 Rate Blood Pressure 118/82 O2 Sat by Pulse 98 Oximetry - Lab Data Lab Results 11/14/18 11/14/18 Range/Units 00:40 00:40 Urine Color Yellow Urine Appearance Cloudy H (Clear) Urine pH 6.0 (5.0-8.0) Ur Specific [place] 1.025 (1.001-1.035) Urine Protein Trace H (Negative) Urine Glucose (UA) Negative (Negative) Urine Ketones Negative (Negative) Urine Blood Negative (Negative) Urine Nitrite Negative (Negative) Urine Bilirubin Negative (Negative) Urine Urobilinogen <2.0 (<2.0) mg/dL Ur Leukocyte Esterase Moderate H (Negative) Urine RBC 3 (0-5) /hpf Urine WBC 4 (0-5) /hpf Ur Squamous Epith Cells 18 H (0-4) /hpf Urine Mucus Rare H (None) /hpf Urine HCG, Qual Not Detected (Not Detectd) Disposition <Tasha Bermeo - Last Filed: 11/14/18 02:29> Is patient prescribed a controlled substance at d/c from ED?: No <Tony Solis - Last Filed: 11/14/18 03:21> Clinical Impression: Cervicitis Disposition: HOME SELF-CARE Condition: Fair Instructions (If sedation given, give patient instructions): Cervicitis (ED) Prescriptions: metroNIDAZOLE [Flagyl] 500 mg PO BID #14 tab Referrals: Garland Lopez MD [Primary Care Provider] - 1-2 days Yaron Haile DO [Doctor of Osteopathic Medicine] - 1-2 days
[2018-11-14 01:04] LABS: Appearance,Urine Cloudy (Clear); Bilirubin,Urine Negative (Negative); Blood,Urine Negative (Negative); Color,Urine Yellow; Glucose,Urine (UA) Negative (Negative); Ketones,Urine Negative (Negative); Leukocyte Esterase,Urine Moderate (Negative); Mucus,Urine Rare /hpf; Nitrite,Urine Negative (Negative); Protein,Urine Trace (Negative); RBC,Urine 3 /hpf (0-5); Specific Gravity,Urine 1.025 (1.001-1.035); Squamous Epithelial Cell,Urine 18 /hpf (0-4); Urobilinogen,Urine <2.0 mg/dL (<2.0); WBC,Urine 4 /hpf (0-5)
[2018-11-14] MEDS ORDERED: cefTRIAXone 250 MG VIAL IM STA (03:20)
[2018-11-14] MEDS ORDERED: AZITHROMYCIN 250 MG TAB PO STA (03:20)
[2018-11-14 03:49] VITALS: BP 108/72; PULSE 72; RESP 18; TEMP 98.2
[2018-11-15 15:30] LABS: C. trachomatis,PCR Negative (Neg,Equiv); Chlamydia trachomatis Source Vagina; N. gonorrhoeae,PCR Negative (Neg,Equiv); Neisseria Source Vagina
== END 2018-11-14 03:49 | disposition home or self-care (01) ==
LOC: EC 23:38
DX: N72 Inflammatory disease of cervix uteri (principal); Z87.891 Personal history of nicotine dependence; Z91.010 Allergy to peanuts; Z88.2 Allergy status to sulfonamides; Z91.018 Allergy to other foods
CPT/HCPCS: 81001; 81025; 87808; 87491; 87591; 99284; 96372; J0696

== ENCOUNTER → 2018-11-20 | Outpatient (CLI) | payer OTHER ==
--- NOTE | 2018-11-20 11:40 | US ---
EXAMINATION TYPE: US pelvis complete transvag DATE OF EXAM: 11/20/2018 COMPARISON: multiple OB ultrasounds CLINICAL HISTORY: Pelvic pain R10.2. TECHNIQUE: Transvaginal (TV) and Transabdominal (TA) . Transabdominal sonographic images of the pel vis were acquired. Transvaginal sonographic images were medically necessary to better assess the fol lowing anatomy: ovaries and uterus Date of LMP: 11/17/2018 EXAM MEASUREMENTS: Uterus: 8.2 x 4.3 x 5.5 cm Endometrial Stripe: 0.8 cm Right Ovary: 2.9 x 2.3 x 1.6 cm Left Ovary: 2.2 x 2.4 x 1.9 cm 1. Uterus: Anteverted multiple nabothian cysts, largest measures 1.2 x 1.1 x 1.3 cm and has hospitality internship al echoes. 2. Endometrium: wnl 3. Right Ovary: wnl 4. Left Ovary: wnl 5. Bilateral Adnexa: wnl 6. Posterior cul-de-sac: no free fluid IMPRESSION: 1. Multiple cervical nabothian cysts.
== END | disposition home or self-care (01) ==
LOC: RADUSWWP 10:53
PROVIDERS: ATTEND Obstetrics & Gynecology
DX: N88.8 Other specified noninflammatory disorders of cervix uteri (principal); R10.2 Pelvic and perineal pain
CPT/HCPCS: 76830; 76856

== ENCOUNTER 2018-12-20 12:00 | Emergency (ER) | payer OTHER ==
[2018-12-20 12:07] VITALS: RESP 18
[2018-12-20] MEDS ORDERED: METOCLOPRAMIDE 5 MG/ML 2 ML VIAL IVP STA (12:10)
[2018-12-20] MEDS ORDERED: SODIUM CHLORIDE 0.9% 1,000 ML IV ONE (12:10)
[2018-12-20 12:54] LABS: Basophils % (A) 0 %; Eosinophils # (A) 0.1 k/uL (0-0.7); Eosinophils % (A) 2 %; HCT 39.2 % (34.0-46.0); HGB 12.6 gm/dL (11.4-16.0); Lymphocytes # (A) 1.1 k/uL (1.0-4.8); Lymphocytes % (A) 17 %; MCH 28.3 pg (25.0-35.0); MCHC 32.1 g/dL (31.0-37.0); MCV 88.2 fL (80.0-100.0); Mean Platelet Volume 8.1; Monocytes # (A) 0.3 k/uL (0-1.0); Monocytes % (A) 5 %; Neutrophils # (A) 5.1 k/uL (1.3-7.7); Neutrophils % (A) 75 %; Platelet Count 199 k/uL (150-450); RBC 4.45 m/uL (3.80-5.40); RDW 14.8 % (11.5-15.5); WBC 6.7 k/uL (3.8-10.6)
[2018-12-20 13:07] LABS: ALT 32 U/L (9-52); AST 20 U/L (14-36); Albumin 4.5 g/dL (3.5-5.0); Alkaline Phosphatase 101 U/L (38-126); Anion Gap 12 mmol/L; Blood Urea Nitrogen 13 mg/dL (7-17); Calcium 9.2 mg/dL (8.4-10.2); Carbon Dioxide 24 mmol/L (22-30); Chloride 104 mmol/L (98-107); Glucose 83 mg/dL (74-99); Lipase 53 U/L (23-300); Potassium 3.7 mmol/L (3.5-5.1); Sodium 140 mmol/L (137-145); Total Bilirubin 0.8 mg/dL (0.2-1.3); Total Protein 7.4 g/dL (6.3-8.2)
[2018-12-20 13:08] LABS: Appearance,Urine Clear (Clear); Bilirubin,Urine Negative (Negative); Blood,Urine Negative (Negative); Color,Urine Yellow; Glucose,Urine (UA) Negative (Negative); Ketones,Urine Negative (Negative); Leukocyte Esterase,Urine Moderate (Negative); Mucus,Urine Many /hpf; Nitrite,Urine Negative (Negative); Protein,Urine 1+ (Negative); Specific Gravity,Urine 1.028 (1.001-1.035); Squamous Epithelial Cell,Urine 3 /hpf (0-4); Urobilinogen,Urine <2.0 mg/dL (<2.0)
--- NOTE | 2018-12-20 13:32 | ED ---
Abdominal Pain HPI - General Chief Complaint: Abdominal Pain Stated Complaint: abd pain, nausea (16wks pp) Time Seen by Provider: 12/20/18 12:09 Source: patient, RN notes reviewed Mode of arrival: ambulatory Limitations: no limitations - History of Present Illness Initial Comments: This a 23-year-old female presents emergency Department chief complaint of intermittent lower abdominal pain, intermittent nausea vomiting. Patient denies diarrhea constipation. Patient has no dysuria no hematuria. Patient is 4 months . Patient denies any vaginal bleeding or vaginal discharge. Patient denies any chance . Patient states she has no flank pain no back pain. Patient had multiple sick contacts with some her symptoms. - Related Data Previous Rx's Medication Instructions Recorded carBAMazepine [TEGretol] 200 mg PO Q12H #10 tablet 09/25/18 Oseltamivir [Tamiflu] 75 mg PO Q12HR #10 cap 10/17/18 metroNIDAZOLE [Flagyl] 500 mg PO BID #14 tab 11/14/18 Cephalexin [Keflex] 500 mg PO Q8HR 5 Days #15 cap 12/20/18 Allergies Allergy/AdvReac Type Severity Reaction Status Date / Time nut - unspecified Allergy Anaphylaxis Verified 12/20/18 12:07 peanut Allergy Anaphylaxis Verified 12/20/18 12:07 Sulfa (Sulfonamide Allergy Rash/Hives Verified 12/20/18 12:07 Antibiotics) tree nut [Nut] Allergy Anaphylaxis Verified 12/20/18 12:07 Review of Systems ROS Statement: Those systems with pertinent positive or pertinent negative responses have been documented in the HPI. ROS Other: All systems not noted in ROS Statement are negative. Past Medical History Past Medical History: Seizure Disorder, Thyroid Disorder Additional Past Medical History / Comment(s): cerebral palsy, gullian barre in 2010 History of Any Multi-Drug Resistant Organisms: None Reported Past Surgical History: No Surgical Hx Reported Additional Past Surgical History / Comment(s): no reported hx Past Anesthesia/Blood Transfusion Reactions: No Reported Reaction Additional Past Anesthesia/Blood Transfusion Reaction / Comment(s): FATHER- TAKES LONGER TO WAKE UP WITH ANESTHESIA" Past Psychological History: Anxiety, Bipolar Smoking Status: Former smoker Past Alcohol Use History: None Reported Past Drug Use History: None Reported - Past Family History Mother Family Medical History: Diabetes Mellitus, Hypertension, Seizure Disorder Additional Family Medical History / Comment(s): SVT Father History Unknown: Yes General Exam Limitations: no limitations General appearance: alert, in no apparent distress Head exam: Present: atraumatic, normocephalic, normal inspection Eye exam: Present: normal appearance, PERRL, EOMI. Absent: scleral icterus, conjunctival injection, periorbital swelling ENT exam: Present: normal exam, normal oropharynx, mucous membranes moist, TM's normal bilaterally Neck exam: Present: normal inspection, full ROM. Absent: tenderness, meningismus, lymphadenopathy Respiratory exam: Present: normal lung sounds bilaterally. Absent: respiratory distress, wheezes, rales, rhonchi, stridor Cardiovascular Exam: Present: regular rate, normal rhythm, normal heart sounds. Absent: systolic murmur, diastolic murmur, rubs, gallop, clicks GI/Abdominal exam: Present: soft, normal bowel sounds. Absent: distended, tenderness, guarding, rebound, rigid Back exam: Absent: CVA tenderness (R), CVA tenderness (L) Skin exam: Present: warm, dry, intact, normal color. Absent: rash Course Vital Signs 12/20/18 12:05 Temperature 98.2 F Pulse Rate 84 Respiratory 18 Rate Blood Pressure 137/67 O2 Sat by Pulse 100 Oximetry Medical Decision Making - Medical Decision Making 23-year-old female presented for lower abdominal pain. Patient is positive for at this time. Patient does have some asymptomatic bacteriuria. Patient be placed on Keflex. Patient's advised follow-up with [facility] return parameters were discussed. Patient did have ultrasound shows possible early gestational sac low patient's hCG is only 99 at this time. Patient will follow- up for recheck of beta hCG in 48 hours with [facility] and repeat ultrasound. - Lab Data Result diagrams: 12/20/18 12:35 12/20/18 12:35 Lab Results 12/20/18 12/20/18 12/20/18 Range/Units 12:35 12:35 12:35 WBC 6.7 (3.8-10.6) k/uL RBC 4.45 (3.80-5.40) m/uL Hgb 12.6 (11.4-16.0) gm/dL Hct 39.2 (34.0-46.0) % MCV 88.2 (80.0-100.0) fL MCH 28.3 (25.0-35.0) pg MCHC 32.1 (31.0-37.0) g/dL RDW 14.8 (11.5-15.5) % Plt Count 199 (150-450) k/uL Neutrophils % 75 % Lymphocytes % 17 % Monocytes % 5 % Eosinophils % 2 % Basophils % 0 % Neutrophils # 5.1 (1.3-7.7) k/uL Lymphocytes # 1.1 (1.0-4.8) k/uL Monocytes # 0.3 (0-1.0) k/uL Eosinophils # 0.1 (0-0.7) k/uL Basophils # 0.0 (0-0.2) k/uL Sodium 140 (137-145) mmol/L Potassium 3.7 (3.5-5.1) mmol/L Chloride 104 (98-107) mmol/L Carbon Dioxide 24 (22-30) mmol/L Anion Gap 12 mmol/L BUN 13 (7-17) mg/dL Creatinine 0.64 (0.52-1.04) mg/dL Est GFR (CKD-EPI)AfAm >90 (>60 ml/min/1.73 sqM) Est GFR (CKD-EPI)NonAf >90 (>60 ml/min/1.73 sqM) Glucose 83 (74-99) mg/dL Calcium 9.2 (8.4-10.2) mg/dL Total Bilirubin 0.8 (0.2-1.3) mg/dL AST 20 (14-36) U/L ALT 32 (9-52) U/L Alkaline Phosphatase 101 (38-126) U/L Total Protein 7.4 (6.3-8.2) g/dL Albumin 4.5 (3.5-5.0) g/dL Lipase 53 (23-300) U/L HCG, Quant mIU/mL Urine Color Yellow Urine Appearance Clear (Clear) Urine pH 6.0 (5.0-8.0) Ur Specific [place] 1.028 (1.001-1.035) Urine Protein 1+ H (Negative) Urine Glucose (UA) Negative (Negative) Urine Ketones Negative (Negative) Urine Blood Negative (Negative) Urine Nitrite Negative (Negative) Urine Bilirubin Negative (Negative) Urine Urobilinogen <2.0 (<2.0) mg/dL Ur Leukocyte Esterase Moderate H (Negative) Urine WBC 6 H (0-5) /hpf Ur Squamous Epith Cells 3 (0-4) /hpf Urine Mucus Many H (None) /hpf Urine HCG, Qual (Not Detectd) 12/20/18 12/20/18 Range/Units 12:35 12:35 WBC (3.8-10.6) k/uL RBC (3.80-5.40) m/uL Hgb (11.4-16.0) gm/dL Hct (34.0-46.0) % MCV (80.0-100.0) fL MCH (25.0-35.0) pg MCHC (31.0-37.0) g/dL RDW (11.5-15.5) % Plt Count (150-450) k/uL Neutrophils % % Lymphocytes % % Monocytes % % Eosinophils % % Basophils % % Neutrophils # (1.3-7.7) k/uL Lymphocytes # (1.0-4.8) k/uL Monocytes # (0-1.0) k/uL Eosinophils # (0-0.7) k/uL Basophils # (0-0.2) k/uL Sodium (137-145) mmol/L Potassium (3.5-5.1) mmol/L Chloride (98-107) mmol/L Carbon Dioxide (22-30) mmol/L Anion Gap mmol/L BUN (7-17) mg/dL Creatinine (0.52-1.04) mg/dL Est GFR (CKD-EPI)AfAm (>60 ml/min/1.73 sqM) Est GFR (CKD-EPI)NonAf (>60 ml/min/1.73 sqM) Glucose (74-99) mg/dL Calcium (8.4-10.2) mg/dL Total Bilirubin (0.2-1.3) mg/dL AST (14-36) U/L ALT (9-52) U/L Alkaline Phosphatase (38-126) U/L Total Protein (6.3-8.2) g/dL Albumin (3.5-5.0) g/dL Lipase (23-300) U/L HCG, Quant 99.4 mIU/mL Urine Color Urine Appearance (Clear) Urine pH (5.0-8.0) Ur Specific [place] (1.001-1.035) Urine Protein (Negative) Urine Glucose (UA) (Negative) Urine Ketones (Negative) Urine Blood (Negative) Urine Nitrite (Negative) Urine Bilirubin (Negative) Urine Urobilinogen (<2.0) mg/dL Ur Leukocyte Esterase (Negative) Urine WBC (0-5) /hpf Ur Squamous Epith Cells (0-4) /hpf Urine Mucus (None) /hpf Urine HCG, Qual Detected (Not Detectd) Disposition Clinical Impression: , Asymptomatic bacteriuria during Disposition: HOME SELF-CARE Condition: Stable Instructions (If sedation given, give patient instructions): (ED) Additional Instructions: Please return to the Emergency Department if symptoms worsen or any other concerns. Prescriptions: Cephalexin [Keflex] 500 mg PO Q8HR 5 Days #15 cap Is patient prescribed a controlled substance at d/c from ED?: No Referrals: Garland Lopez MD [Primary Care Provider] - 1-2 days Time of Disposition: 14:22
--- NOTE | 2018-12-20 14:00 | US ---
EXAMINATION TYPE: US transvaginal DATE OF EXAM: 12/20/2018 COMPARISON: US CLINICAL HISTORY: Pain. Pelvic pain x 1 week; and is 12 weeks post . TECHNIQUE: Transvaginal (TV) per EC Dept. Transvaginal sonographic images were completed. Date of LMP: approximately 11-27-18 EXAM MEASUREMENTS: Uterus: 9.5 x 6.5 x 4.8 cm Endometrial Stripe: 1.3 cm Right Ovary: 3.1 x 2.1x 1.9 cm Left Ovary: 4.1 x 2.4 x 2.7 cm 1. Uterus: Anteverted; multiple Nabothian Cysts seen in cervix. The largest complex cystic area nancy ures 1.2 x 1.2 x 1.0cm and was seen on prior US here likely representing a complex nabothian cyst. 2. Endometrium: multiple small endometrial cysts are seen with largest in upper endometrium = 0.3 x 0.3 x 0.2cm; endometrial thickness is wnl for day 24 LMP. 3. Right Ovary: multiple small follicles 4. Left Ovary: multifollicular with largest as complex cyst with peripheral ring of color flow = 1.7 x 1.8 x 1.3cm , likely corpus luteal cyst. Spectral, color and waveform Doppler imaging shows good arterial and venous flow within the ovaries ; there is no evidence for ovarian torsion. 5. Bilateral Adnexa: wnl 6. Posterior cul-de-sac: small amount of free fluid here = 2.4 x 2.7 x 0.4cm. Urine HCG from EC: qualitative detected IMPRESSION: Very small intraendometrial cystic change (3 mm) could represent early intrauterine gestation or pseu dogestational sac of ectopic . Correlation with serum beta hCG level is recommended. If the beta-hCG level is not fitting for very early intrauterine , ectopic should be cons idered as there is a complex irregular appearing nabothian cysts within the cervix although present o n the prior of 11/20/2018 that could less likely represent a cervical ectopic (rare).
[2018-12-20 14:43] VITALS: BP 128/75; PULSE 87; TEMP 97.8
== END 2018-12-20 14:43 | disposition home or self-care (01) ==
LOC: EC 12:00
DX: O99.89 Other specified diseases and conditions complicating pregnancy, childbirth and the puerperium (principal); R82.71 Bacteriuria; Z88.2 Allergy status to sulfonamides; Z91.018 Allergy to other foods; Z91.010 Allergy to peanuts; Z87.891 Personal history of nicotine dependence; Z3A.16 16 weeks gestation of pregnancy
CPT/HCPCS: 36415; 80053; 83690; 85025; 81001; 81025; 84702; 93975; 76830; 99284; 96374; 96361 ×2; J2765

== ENCOUNTER → 2018-12-24 | Outpatient (CLI) | payer OTHER | END | disposition home or self-care (01) | LOC: LABWHC1 09:07 | PROVIDERS: ATTEND Obstetrics & Gynecology | DX: Z34.80 Encounter for supervision of other normal pregnancy, unspecified trimester (principal) | CPT/HCPCS: 36415; 84702 ==

== ENCOUNTER 2018-12-29 08:44 | Emergency (ER) | payer OTHER ==
[2018-12-29 09:04] VITALS: RESP 18; TEMP 98.8
--- NOTE | 2018-12-29 10:53 | ED ---
Abdominal Pain HPI - General Chief Complaint: Abdominal Pain Stated Complaint: abdominal pain Time Seen by Provider: 12/29/18 09:59 Source: patient, RN notes reviewed Mode of arrival: ambulatory Limitations: no limitations - History of Present Illness Initial Comments: 23-year-old female presents emergency Department with chief complaint of lower abdominal pain. His been ongoing issue. Patient was here last week for similar complaints and found out she was . Patient had early . Has not had a repeat hCG. She states presents status repeated. She does have an appointment with [facility] January 16. Patient is A0. Patient is unsure how far along she is. Patient denies any current nausea vomiting diarrhea constipation. Patient has no dysuria no hematuria. - Related Data Home Medications Medication Instructions Recorded Confirmed No Known Home Medications 12/29/18 12/29/18 Allergies Allergy/AdvReac Type Severity Reaction Status Date / Time nut - unspecified Allergy Anaphylaxis Verified 12/29/18 10:08 peanut Allergy Anaphylaxis Verified 12/29/18 10:08 Sulfa (Sulfonamide Allergy Rash/Hives Verified 12/29/18 10:08 Antibiotics) tree nut [Nut] Allergy Anaphylaxis Verified 12/29/18 10:08 Review of Systems ROS Statement: Those systems with pertinent positive or pertinent negative responses have been documented in the HPI. ROS Other: All systems not noted in ROS Statement are negative. Past Medical History Past Medical History: Seizure Disorder, Thyroid Disorder Additional Past Medical History / Comment(s): cerebral palsy, gullian barre in 2010 History of Any Multi-Drug Resistant Organisms: None Reported Past Surgical History: No Surgical Hx Reported Additional Past Surgical History / Comment(s): no reported hx Past Anesthesia/Blood Transfusion Reactions: No Reported Reaction Additional Past Anesthesia/Blood Transfusion Reaction / Comment(s): FATHER- TAKES LONGER TO WAKE UP WITH ANESTHESIA" Past Psychological History: Anxiety, Bipolar Smoking Status: Former smoker Past Alcohol Use History: None Reported Past Drug Use History: None Reported - Past Family History Mother Family Medical History: Diabetes Mellitus, Hypertension, Seizure Disorder Additional Family Medical History / Comment(s): SVT Father History Unknown: Yes General Exam Limitations: no limitations General appearance: alert, in no apparent distress Head exam: Present: atraumatic, normocephalic, normal inspection Respiratory exam: Present: normal lung sounds bilaterally. Absent: respiratory distress, wheezes, rales, rhonchi, stridor Cardiovascular Exam: Present: regular rate, normal rhythm, normal heart sounds. Absent: systolic murmur, diastolic murmur, rubs, gallop, clicks GI/Abdominal exam: Present: soft, normal bowel sounds. Absent: distended, tenderness, guarding, rebound, rigid Back exam: Absent: CVA tenderness (R), CVA tenderness (L) Skin exam: Present: warm, dry, intact, normal color. Absent: rash Course Vital Signs 12/29/18 12/29/18 08:58 12:33 Temperature 98.8 F Pulse Rate 94 80 Respiratory 18 18 Rate Blood Pressure 121/70 120/71 O2 Sat by Pulse 98 98 Oximetry Medical Decision Making - Medical Decision Making 23-year-old female presented for abdominal pain. Patient hCG did significantly L Edy at this time all child was obtained does not show confirmed intrauterine . Dr. Rivera was contacted by Dr. Ruiz who feels this is just an early . She is repeat hCG Saturday morning and follow-up in office at 1:30 PM. Patient understands this and verbalizes understanding. - Lab Data Result diagrams: 12/29/18 10:45 Lab Results 12/29/18 12/29/18 12/29/18 Range/Units 10:45 10:45 10:45 WBC 6.6 (3.8-10.6) k/uL RBC 4.62 (3.80-5.40) m/uL Hgb 13.0 (11.4-16.0) gm/dL Hct 40.9 (34.0-46.0) % MCV 88.6 (80.0-100.0) fL MCH 28.1 (25.0-35.0) pg MCHC 31.7 (31.0-37.0) g/dL RDW 14.8 (11.5-15.5) % Plt Count 258 (150-450) k/uL Neutrophils % 67 % Lymphocytes % 25 % Monocytes % 5 % Eosinophils % 2 % Basophils % 0 % Neutrophils # 4.4 (1.3-7.7) k/uL Lymphocytes # 1.6 (1.0-4.8) k/uL Monocytes # 0.3 (0-1.0) k/uL Eosinophils # 0.1 (0-0.7) k/uL Basophils # 0.0 (0-0.2) k/uL HCG, Qual Detected HCG, Quant 7515.0 mIU/mL Urine Color Yellow Urine Appearance Cloudy H (Clear) Urine pH 6.5 (5.0-8.0) Ur Specific [place] 1.020 (1.001-1.035) Urine Protein Trace H (Negative) Urine Glucose (UA) Negative (Negative) Urine Ketones Negative (Negative) Urine Blood Negative (Negative) Urine Nitrite Negative (Negative) Urine Bilirubin Negative (Negative) Urine Urobilinogen <2.0 (<2.0) mg/dL Ur Leukocyte Esterase Large H (Negative) Urine RBC 3 (0-5) /hpf Urine WBC 2 (0-5) /hpf Ur Squamous Epith Cells 16 H (0-4) /hpf Urine Bacteria Rare H (None) /hpf Urine Mucus Rare H (None) /hpf Disposition Clinical Impression: Abdominal pain, Disposition: HOME SELF-CARE Condition: Stable Instructions (If sedation given, give patient instructions): Abdominal Pain in (ED) Additional Instructions: Please return to the Emergency Department if symptoms worsen or any other concerns. Is patient prescribed a controlled substance at d/c from ED?: No Referrals: Garland Lopez MD [Primary Care Provider] - 1-2 days
[2018-12-29 11:11] LABS: Basophils % (A) 0 %; Eosinophils # (A) 0.1 k/uL (0-0.7); Eosinophils % (A) 2 %; HCT 40.9 % (34.0-46.0); Lymphocytes # (A) 1.6 k/uL (1.0-4.8); Lymphocytes % (A) 25 %; MCH 28.1 pg (25.0-35.0); MCHC 31.7 g/dL (31.0-37.0); MCV 88.6 fL (80.0-100.0); Mean Platelet Volume 7.5; Monocytes # (A) 0.3 k/uL (0-1.0); Monocytes % (A) 5 %; Neutrophils # (A) 4.4 k/uL (1.3-7.7); Neutrophils % (A) 67 %; Platelet Count 258 k/uL (150-450); RBC 4.62 m/uL (3.80-5.40); RDW 14.8 % (11.5-15.5); WBC 6.6 k/uL (3.8-10.6)
[2018-12-29 11:24] LABS: Appearance,Urine Cloudy (Clear); Bacteria,Urine Rare /hpf; Bilirubin,Urine Negative (Negative); Blood,Urine Negative (Negative); Color,Urine Yellow; Glucose,Urine (UA) Negative (Negative); Ketones,Urine Negative (Negative); Leukocyte Esterase,Urine Large (Negative); Mucus,Urine Rare /hpf; Nitrite,Urine Negative (Negative); PH, Urine 6.5 (5.0-8.0); Protein,Urine Trace (Negative); RBC,Urine 3 /hpf (0-5); Squamous Epithelial Cell,Urine 16 /hpf (0-4); Urobilinogen,Urine <2.0 mg/dL (<2.0)
[2018-12-29 11:26] LABS: HCG,Qualitative Serum Detected
[2018-12-29 12:37] VITALS: BP 120/71; PULSE 80
--- NOTE | 2018-12-29 12:52 | US ---
EXAMINATION TYPE: Transabdominal DATE OF EXAM: 12/29/2018 12:36 PM COMPARISON: us 12/20/2018 CLINICAL HISTORY: Pain. EXAM PERFORMED: Transvaginal (TV) and Transabdominal (TA), endovaginal scanning performed for better evaluation of the uterus and ovaries EXAM MEASUREMENTS: GESTATIONAL AGE / DATING Physician Established: Not yet established Dates by LMP: LMP unknown Dates by First Scan: No IUP visualized Dates by Current Scan for: No viable MATERNAL ANATOMY Uterus: 10.1 x 5.5 x 6.0 cm Right Ovary: 2.9 x 1.8 x 1.3 cm Left Ovary: 3.4 x 2.3 x 2.5 cm Post CDS / Adnexa: Small amount of free fluid visualized in cul de sac Presence of free fluid: Yes Presence of corpus luteal cyst: Left ovary measuring 2.6 x 1.7 x 2.2 cm Presence of subchorionic bleed: No GESTATION / SURVEY MSD: 0.57 cm - too small to date IUP: No pole or yolk sac visualized Date of LMP: LMP unknown Beta HcG (if available): 7515 No pole or yolk sac visualized. Hypoechoic area visualized within the endometrium measuring0.6 x 0.6 x 0.6 cm. Multiple possible nabothian cysts visualized. One of these areas within the cervix co ntains echogenic debris Endometrium thought to be thickened. IMPRESSION: Small sac present within the endometrial region is seen which is decreased in size compared to prior. No intrauterine identified at this time. Endometrial stripe thickening is present. Follow- up recommended.
== END 2018-12-29 14:31 | disposition home or self-care (01) ==
LOC: EC 08:44
DX: O26.891 Other specified pregnancy related conditions, first trimester (principal); R10.30 Lower abdominal pain, unspecified; Z3A.01 Less than 8 weeks gestation of pregnancy; Z87.891 Personal history of nicotine dependence; Z91.010 Allergy to peanuts; Z88.2 Allergy status to sulfonamides; Z91.018 Allergy to other foods
CPT/HCPCS: 36415; 76801; 76817; 81001; 84702; 84703; 85025; 99284

== ENCOUNTER → 2018-12-31 | Outpatient (CLI) | payer OTHER | END | disposition home or self-care (01) | LOC: LABWHC1 10:45 | PROVIDERS: ATTEND Physician Assistant | DX: O20.0 Threatened abortion (principal); Z3A.00 Weeks of gestation of pregnancy not specified | CPT/HCPCS: 36415; 84702 ==

== ENCOUNTER 2019-01-04 18:59 | Emergency (ER) | payer OTHER ==
[2019-01-04 19:40] VITALS: RESP 18
--- NOTE | 2019-01-04 21:24 | ED ---
General Adult HPI - General Source: patient, RN notes reviewed, old records reviewed Mode of arrival: ambulatory Limitations: no limitations <Roberto Stahl - Last Filed: 01/05/19 05:33> <Paige Bonilla - Last Filed: 01/05/19 07:52> - General Chief complaint: Vaginal Bleeding Stated complaint: 4 wks preg,bleeding Time Seen by Provider: 01/04/19 21:05 - History of Present Illness Initial comments: 23-year-old female patient presents to ER with approximately 3 days of suprapubic cramping pain, 3 days of vaginal bleeding. Patient reports that she is at least 4 weeks . Patient has followed up with [facility] one time for this , Dr. Rivera. Patient denies any other complaints. Patient denies nausea vomiting diarrhea, other areas of abdominal pain. Patient denies any chest pain or shortness of breath. Denies any dysuria. Systemic: Pt denies fatigue, myalgia, fever/chills, rash. Pt denies weakness, night sweats, weight loss. Neuro: Pt denies headache, visual disturbances, syncope or pre-syncope. HEENT: Pt denies ocular discharge or irritation, otalgia, rhinorrhea, pharyngit is or notable lymphadenopathy. Cardiopulmonary: Pt denies chest pain, SOB, heart palpitations, dyspnea on exertion. Abdominal/GI: Pt denies abdominal pain, n/v/d. : Pt denies dysuria, burning w/ urination, frequency/urgency. Denies new onset urinary or bowel incontinence. MSK: Pt denies myalgia, loss of strength or function in extremities. Neuro: Pt denies new onset weakness, paresthesias. (Roberto Stahl) - Related Data Previous Rx's Medication Instructions Recorded Cephalexin [Keflex] 500 mg PO Q12HR 10 Days cap 01/05/19 Allergies Allergy/AdvReac Type Severity Reaction Status Date / Time nut - unspecified Allergy Anaphylaxis Verified 12/29/18 10:08 peanut Allergy Anaphylaxis Verified 12/29/18 10:08 Sulfa (Sulfonamide Allergy Rash/Hives Verified 12/29/18 10:08 Antibiotics) tree nut [Nut] Allergy Anaphylaxis Verified 12/29/18 10:08 Review of Systems ROS Other: All systems not noted in ROS Statement are negative. <Roberto Stahl - Last Filed: 01/05/19 05:33> ROS Other: All systems not noted in ROS Statement are negative. <Paige Bonilla - Last Filed: 01/05/19 07:52> ROS Statement: Those systems with pertinent positive or pertinent negative responses have been documented in the HPI. Past Medical History Past Medical History: Seizure Disorder, Thyroid Disorder Additional Past Medical History / Comment(s): cerebral palsy, gullian barre in 2011, multiple miscarriages History of Any Multi-Drug Resistant Organisms: None Reported Past Surgical History: No Surgical Hx Reported Additional Past Surgical History / Comment(s): no reported hx Past Anesthesia/Blood Transfusion Reactions: No Reported Reaction Additional Past Anesthesia/Blood Transfusion Reaction / Comment(s): FATHER- TAKES LONGER TO WAKE UP WITH ANESTHESIA" Past Psychological History: Anxiety, Bipolar Smoking Status: Former smoker Past Alcohol Use History: None Reported Past Drug Use History: None Reported - Past Family History Mother Family Medical History: Diabetes Mellitus, Hypertension, Seizure Disorder Additional Family Medical History / Comment(s): SVT Father History Unknown: Yes <Roberto Stahl - Last Filed: 01/05/19 05:33> General Exam Limitations: no limitations <Roberto Stahl - Last Filed: 01/05/19 05:33> - General Exam Comments Initial Comments: Constitutional: NAD, AOX3, Pt has pleasant affect. HEENT: NC/AT, trachea midline, neck supple, no lymphadenopathy. Posterior pharynx non erythematous, without exudates. External ears appear normal, without discharge. Mucous membranes moist. Eyes PERRLA, EOM intact. There is no scleral icterus. No pallor noted. Cardiopulmonary: RRR, no murmurs, rubs or gallops, no JVD noted. Lungs CTAB in anterior and posterior min. No peripheral edema. Abdominal exam: Abdomen soft and non-distended. Abdomen non-tender to palpation in all 4 quadrants. Bowel sounds active in LLQ. No hepatosplenomegaly. No ecchymosis Neuro: CN II-XII grossly intact. No nuchal rigidity. MSK: No posterior calf tenderness bilaterally, homans sign negative bilaterally. Posterior tibialis and radial pulse +2 bilaterally. Sensation intact in upper and lower extremities. Full active ROM in upper and lower extremities, 5/5 stregnth. Pelvic: Cervical os closed, mild amount of blood noted in vaginal canal. No ulcerations, no lesions, no pathologic findings. Chaperogned by EUGENIO Heard. (Roberto Stahl) Course Vital Signs 01/04/19 01/04/19 01/05/19 19:35 22:31 00:40 Temperature 97.4 F L 97.6 F Pulse Rate 88 78 84 Respiratory 18 18 18 Rate Blood Pressure 142/77 127/84 137/78 O2 Sat by Pulse 99 98 100 Oximetry Medical Decision Making - Lab Data Result diagrams: 01/04/19 21:42 01/04/19 21:42 <Roberto Stahl - Last Filed: 01/05/19 05:33> - Lab Data Result diagrams: 01/04/19 21:42 01/04/19 21:42 <Paige Bonilla - Last Filed: 01/05/19 07:52> - Medical Decision Making 23-year-old female patient presents to ER with approximately 3 days of mims prapubic cramping pain, 3 days of vaginal bleeding. Patient reports that she is at least 4 weeks . Patient has followed up with [facility] one time for this , Dr. Rivera. Patient denies any other complaints. Patient denies nausea vomiting diarrhea, other areas of abdominal pain. Patient denies any chest pain or shortness of breath. Denies any dysuria. Patient's vital signs stable, afebrile. Physical exam displayed: Cervical os closed, mild amount of blood noted in vaginal canal. No ulcerations, no lesions, no pathologic findings. Chaperogned by EUGENIO Heard. Laboratory investigations revealed nonspecific CBC, CMP. UA displayed blood, asymptomatic bacteriuria. Transvaginal ultrasound displayed viable intrauterine , small subchorionic hemorrhage. Patient diagnosed with threatened , asymptomatic bacteria. Patient discharged with Keflex. Patient will follow-up with [facility] tomorrow. Patient return to ER if new symptoms develop or if condition worsens in any way. Case discussed with Dr. Bonilla. (Roberto Stahl) I was available for consultation in the emergency department. The history and physical exam were done by the midlevel provider. I was consulted for this patient's care. I reviewed the case with the midlevel provider and based on their presentation of the patient, I agree with the assessment, medical decision making and plan of care as documented. (Paige Bonilla) - Lab Data Lab Results 01/04/19 01/04/19 01/04/19 Range/Units 21:38 21:42 21:42 WBC 8.5 (3.8-10.6) k/uL RBC 4.49 (3.80-5.40) m/uL Hgb 12.2 (11.4-16.0) gm/dL Hct 39.6 (34.0-46.0) % MCV 88.1 (80.0-100.0) fL MCH 27.1 (25.0-35.0) pg MCHC 30.8 L (31.0-37.0) g/dL RDW 14.4 (11.5-15.5) % Plt Count 235 (150-450) k/uL Neutrophils % 70 % Lymphocytes % 21 % Monocytes % 5 % Eosinophils % 2 % Basophils % 0 % Neutrophils # 6.0 (1.3-7.7) k/uL Lymphocytes # 1.8 (1.0-4.8) k/uL Monocytes # 0.4 (0-1.0) k/uL Eosinophils # 0.2 (0-0.7) k/uL Basophils # 0.0 (0-0.2) k/uL Sodium 137 (137-145) mmol/L Potassium 4.6 (3.5-5.1) mmol/L Chloride 104 (98-107) mmol/L Carbon Dioxide 25 (22-30) mmol/L Anion Gap 8 mmol/L BUN 13 (7-17) mg/dL Creatinine 0.61 (0.52-1.04) mg/dL Est GFR (CKD-EPI)AfAm >90 (>60 ml/min/1.73 sqM) Est GFR (CKD-EPI)NonAf >90 (>60 ml/min/1.73 sqM) Glucose 66 L (74-99) mg/dL POC Glucose (mg/dL) (75-99) mg/dL POC Glu Stencil Sprayer ID Calcium 9.5 (8.4-10.2) mg/dL Total Bilirubin 0.4 (0.2-1.3) mg/dL AST 27 (14-36) U/L ALT 26 (9-52) U/L Alkaline Phosphatase 73 (38-126) U/L Total Protein 7.2 (6.3-8.2) g/dL Albumin 4.3 (3.5-5.0) g/dL Urine Color Urine Appearance (Clear) Urine pH (5.0-8.0) Ur Specific [place] (1.001-1.035) Urine Protein (Negative) Urine Glucose (UA) (Negative) Urine Ketones (Negative) Urine Blood (Negative) Urine Nitrite (Negative) Urine Bilirubin (Negative) Urine Urobilinogen (<2.0) mg/dL Ur Leukocyte Esterase (Negative) Urine RBC (0-5) /hpf Urine WBC (0-5) /hpf Ur Squamous Epith Cells (0-4) /hpf Urine Bacteria (None) /hpf Urine Mucus (None) /hpf Urine HCG, Qual (Not Detectd) Trichomonas Ag (Rapid) (Negative) Blood Type O Positive Blood Type Recheck No 01/04/19 01/04/19 01/05/19 Range/Units 22:12 22:12 00:21 WBC (3.8-10.6) k/uL RBC (3.80-5.40) m/uL Hgb (11.4-16.0) gm/dL Hct (34.0-46.0) % MCV (80.0-100.0) fL MCH (25.0-35.0) pg MCHC (31.0-37.0) g/dL RDW (11.5-15.5) % Plt Count (150-450) k/uL Neutrophils % % Lymphocytes % % Monocytes % % Eosinophils % % Basophils % % Neutrophils # (1.3-7.7) k/uL Lymphocytes # (1.0-4.8) k/uL Monocytes # (0-1.0) k/uL Eosinophils # (0-0.7) k/uL Basophils # (0-0.2) k/uL Sodium (137-145) mmol/L Potassium (3.5-5.1) mmol/L Chloride (98-107) mmol/L Carbon Dioxide (22-30) mmol/L Anion Gap mmol/L BUN (7-17) mg/dL Creatinine (0.52-1.04) mg/dL Est GFR (CKD-EPI)AfAm (>60 ml/min/1.73 sqM) Est GFR (CKD-EPI)NonAf (>60 ml/min/1.73 sqM) Glucose (74-99) mg/dL POC Glucose (mg/dL) (75-99) mg/dL POC Glu Stencil Sprayer ID Calcium (8.4-10.2) mg/dL Total Bilirubin (0.2-1.3) mg/dL AST (14-36) U/L ALT (9-52) U/L Alkaline Phosphatase (38-126) U/L Total Protein (6.3-8.2) g/dL Albumin (3.5-5.0) g/dL Urine Color Yellow Urine Appearance Cloudy H (Clear) Urine pH 6.5 (5.0-8.0) Ur Specific [place] 1.022 (1.001-1.035) Urine Protein 1+ H (Negative) Urine Glucose (UA) Negative (Negative) Urine Ketones Negative (Negative) Urine Blood Large H (Negative) Urine Nitrite Negative (Negative) Urine Bilirubin Negative (Negative) Urine Urobilinogen <2.0 (<2.0) mg/dL Ur Leukocyte Esterase Large H (Negative) Urine RBC >182 H (0-5) /hpf Urine WBC 75 H (0-5) /hpf Ur Squamous Epith Cells 22 H (0-4) /hpf Urine Bacteria Rare H (None) /hpf Urine Mucus Rare H (None) /hpf Urine HCG, Qual Detected (Not Detectd) Trichomonas Ag (Rapid) Negative (Negative) Blood Type Blood Type Recheck 01/05/19 Range/Units 00:34 WBC (3.8-10.6) k/uL RBC (3.80-5.40) m/uL Hgb (11.4-16.0) gm/dL Hct (34.0-46.0) % MCV (80.0-100.0) fL MCH (25.0-35.0) pg MCHC (31.0-37.0) g/dL RDW (11.5-15.5) % Plt Count (150-450) k/uL Neutrophils % % Lymphocytes % % Monocytes % % Eosinophils % % Basophils % % Neutrophils # (1.3-7.7) k/uL Lymphocytes # (1.0-4.8) k/uL Monocytes # (0-1.0) k/uL Eosinophils # (0-0.7) k/uL Basophils # (0-0.2) k/uL Sodium (137-145) mmol/L Potassium (3.5-5.1) mmol/L Chloride (98-107) mmol/L Carbon Dioxide (22-30) mmol/L Anion Gap mmol/L BUN (7-17) mg/dL Creatinine (0.52-1.04) mg/dL Est GFR (CKD-EPI)AfAm (>60 ml/min/1.73 sqM) Est GFR (CKD-EPI)NonAf (>60 ml/min/1.73 sqM) Glucose (74-99) mg/dL POC Glucose (mg/dL) 95 (75-99) mg/dL POC Glu Stencil Sprayer ID Orquidea Myers Calcium (8.4-10.2) mg/dL Total Bilirubin (0.2-1.3) mg/dL AST (14-36) U/L ALT (9-52) U/L Alkaline Phosphatase (38-126) U/L Total Protein (6.3-8.2) g/dL Albumin (3.5-5.0) g/dL Urine Color Urine Appearance (Clear) Urine pH (5.0-8.0) Ur Specific [place] (1.001-1.035) Urine Protein (Negative) Urine Glucose (UA) (Negative) Urine Ketones (Negative) Urine Blood (Negative) Urine Nitrite (Negative) Urine Bilirubin (Negative) Urine Urobilinogen (<2.0) mg/dL Ur Leukocyte Esterase (Negative) Urine RBC (0-5) /hpf Urine WBC (0-5) /hpf Ur Squamous Epith Cells (0-4) /hpf Urine Bacteria (None) /hpf Urine Mucus (None) /hpf Urine HCG, Qual (Not Detectd) Trichomonas Ag (Rapid) (Negative) Blood Type Blood Type Recheck Disposition Is patient prescribed a controlled substance at d/c from ED?: No <Roberto Stahl - Last Filed: 01/05/19 05:33> <Paige Bonilla - Last Filed: 01/05/19 07:52> Clinical Impression: Asymptomatic bacteriuria, Threatened Disposition: HOME SELF-CARE Condition: Stable Instructions (If sedation given, give patient instructions): Threatened Miscarriage (ED) Additional Instructions: Patient to adhere to previously discussed treatment plan and will take medication(s) as directed. Patient to follow up with PCP in 1-2 days. Patient to return to ED if symptoms do not improve. Please take medication as prescribed. Please follow-up with [facility] tomorrow. Please follow up with primary care provider in 1-2 days. Please return to ER if condition worsens in any way. Prescriptions: Cephalexin [Keflex] 500 mg PO Q12HR 10 Days cap Referrals: Garland Lopez MD [Primary Care Provider] - 1-2 days
[2019-01-04 21:58] LABS: Basophils % (A) 0 %; Eosinophils # (A) 0.2 k/uL (0-0.7); Eosinophils % (A) 2 %; HCT 39.6 % (34.0-46.0); HGB 12.2 gm/dL (11.4-16.0); Lymphocytes # (A) 1.8 k/uL (1.0-4.8); Lymphocytes % (A) 21 %; MCH 27.1 pg (25.0-35.0); MCHC 30.8 g/dL (31.0-37.0); MCV 88.1 fL (80.0-100.0); Mean Platelet Volume 8.4; Monocytes # (A) 0.4 k/uL (0-1.0); Monocytes % (A) 5 %; Neutrophils % (A) 70 %; Platelet Count 235 k/uL (150-450); RBC 4.49 m/uL (3.80-5.40); RDW 14.4 % (11.5-15.5); WBC 8.5 k/uL (3.8-10.6)
[2019-01-04 22:07] LABS: ALT 26 U/L (9-52); AST 27 U/L (14-36); Albumin 4.3 g/dL (3.5-5.0); Alkaline Phosphatase 73 U/L (38-126); Anion Gap 8 mmol/L; Blood Urea Nitrogen 13 mg/dL (7-17); Calcium 9.5 mg/dL (8.4-10.2); Carbon Dioxide 25 mmol/L (22-30); Chloride 104 mmol/L (98-107); Glucose 66 mg/dL (74-99); Sodium 137 mmol/L (137-145); Total Bilirubin 0.4 mg/dL (0.2-1.3); Total Protein 7.2 g/dL (6.3-8.2)
[2019-01-04 22:11] LABS: Potassium 4.6 mmol/L (3.5-5.1)
[2019-01-04 22:25] LABS: Appearance,Urine Cloudy (Clear); Bacteria,Urine Rare /hpf; Bilirubin,Urine Negative (Negative); Blood,Urine Large (Negative); Color,Urine Yellow; Glucose,Urine (UA) Negative (Negative); Ketones,Urine Negative (Negative); Leukocyte Esterase,Urine Large (Negative); Mucus,Urine Rare /hpf; Nitrite,Urine Negative (Negative); PH, Urine 6.5 (5.0-8.0); Protein,Urine 1+ (Negative); RBC,Urine >182 /hpf (0-5); Specific Gravity,Urine 1.022 (1.001-1.035); Squamous Epithelial Cell,Urine 22 /hpf (0-4); Urobilinogen,Urine <2.0 mg/dL (<2.0)
--- NOTE | 2019-01-04 22:36 | US ---
EXAM: US First Trimester, Transabdominal CLINICAL HISTORY: ITS.REASON US Reason: pain TECHNIQUE: Real-time transabdominal obstetrical ultrasound of the maternal pelvis and a first trimester with image documentation. COMPARISON: No relevant prior studies available. FINDINGS: Gestation: Gestational sac is visualized within the upper, fundal region of the rightward uterus. Yolk sac is visualized measuring 3 mm. pole is visualized measuring up to 2.8 mm estimated 5 week 6 day gestational age. Cardiac activity is visualized, heart rate currently measured up to 104 bpm. Placenta/amniotic fluid: There is a hypoechoic structure adjacent to the gestational sac measuring approximately 1.7 x 1.3 x 1.6 cm, most likely representing a subchorionic hemorrhage. Uterus/cervix: Uterus length 10.4 cm. Ovaries: The left ovary measures 3.3 x 2.1 x 2.3 cm. Peripherally vascular complex cystic focus is identified within the left ovary which is most likely a corpus luteum. The right ovary measures 3.0 x 1.3 x 1.1 cm. Free fluid: No free fluid. IMPRESSION: 1. Viable intrauterine , approximate age by measurements of 5 weeks 6 days. Low heart rate measurement between 102 and 104 bpm, possibly related to early gestational age. Attention recommended on follow-up. 2. Small subchorionic hemorrhage as above. Attention to this also recommended at follow-up.
[2019-01-05 00:35] LABS: Glucose,Whole Blood 95 mg/dL (75-99)
[2019-01-05 00:41] VITALS: BP 137/78; PULSE 84; TEMP 97.6
--- NOTE | 2019-01-05 05:35 | ED ---
Medical Decision Making - Medical Decision Making Patient blood type O+, rhogam not indicated. - Lab Data Result diagrams: 01/04/19 21:42 01/04/19 21:42 Lab Results 01/04/19 01/04/19 01/04/19 Range/Units 21:38 21:42 21:42 WBC 8.5 (3.8-10.6) k/uL RBC 4.49 (3.80-5.40) m/uL Hgb 12.2 (11.4-16.0) gm/dL Hct 39.6 (34.0-46.0) % MCV 88.1 (80.0-100.0) fL MCH 27.1 (25.0-35.0) pg MCHC 30.8 L (31.0-37.0) g/dL RDW 14.4 (11.5-15.5) % Plt Count 235 (150-450) k/uL Neutrophils % 70 % Lymphocytes % 21 % Monocytes % 5 % Eosinophils % 2 % Basophils % 0 % Neutrophils # 6.0 (1.3-7.7) k/uL Lymphocytes # 1.8 (1.0-4.8) k/uL Monocytes # 0.4 (0-1.0) k/uL Eosinophils # 0.2 (0-0.7) k/uL Basophils # 0.0 (0-0.2) k/uL Sodium 137 (137-145) mmol/L Potassium 4.6 (3.5-5.1) mmol/L Chloride 104 (98-107) mmol/L Carbon Dioxide 25 (22-30) mmol/L Anion Gap 8 mmol/L BUN 13 (7-17) mg/dL Creatinine 0.61 (0.52-1.04) mg/dL Est GFR (CKD-EPI)AfAm >90 (>60 ml/min/1.73 sqM) Est GFR (CKD-EPI)NonAf >90 (>60 ml/min/1.73 sqM) Glucose 66 L (74-99) mg/dL POC Glucose (mg/dL) (75-99) mg/dL POC Glu Recycling Attendant ID Calcium 9.5 (8.4-10.2) mg/dL Total Bilirubin 0.4 (0.2-1.3) mg/dL AST 27 (14-36) U/L ALT 26 (9-52) U/L Alkaline Phosphatase 73 (38-126) U/L Total Protein 7.2 (6.3-8.2) g/dL Albumin 4.3 (3.5-5.0) g/dL Urine Color Urine Appearance (Clear) Urine pH (5.0-8.0) Ur Specific [place] (1.001-1.035) Urine Protein (Negative) Urine Glucose (UA) (Negative) Urine Ketones (Negative) Urine Blood (Negative) Urine Nitrite (Negative) Urine Bilirubin (Negative) Urine Urobilinogen (<2.0) mg/dL Ur Leukocyte Esterase (Negative) Urine RBC (0-5) /hpf Urine WBC (0-5) /hpf Ur Squamous Epith Cells (0-4) /hpf Urine Bacteria (None) /hpf Urine Mucus (None) /hpf Urine HCG, Qual (Not Detectd) Trichomonas Ag (Rapid) (Negative) Blood Type O Positive Blood Type Recheck No 01/04/19 01/04/19 01/05/19 Range/Units 22:12 22:12 00:21 WBC (3.8-10.6) k/uL RBC (3.80-5.40) m/uL Hgb (11.4-16.0) gm/dL Hct (34.0-46.0) % MCV (80.0-100.0) fL MCH (25.0-35.0) pg MCHC (31.0-37.0) g/dL RDW (11.5-15.5) % Plt Count (150-450) k/uL Neutrophils % % Lymphocytes % % Monocytes % % Eosinophils % % Basophils % % Neutrophils # (1.3-7.7) k/uL Lymphocytes # (1.0-4.8) k/uL Monocytes # (0-1.0) k/uL Eosinophils # (0-0.7) k/uL Basophils # (0-0.2) k/uL Sodium (137-145) mmol/L Potassium (3.5-5.1) mmol/L Chloride (98-107) mmol/L Carbon Dioxide (22-30) mmol/L Anion Gap mmol/L BUN (7-17) mg/dL Creatinine (0.52-1.04) mg/dL Est GFR (CKD-EPI)AfAm (>60 ml/min/1.73 sqM) Est GFR (CKD-EPI)NonAf (>60 ml/min/1.73 sqM) Glucose (74-99) mg/dL POC Glucose (mg/dL) (75-99) mg/dL POC Glu Recycling Attendant ID Calcium (8.4-10.2) mg/dL Total Bilirubin (0.2-1.3) mg/dL AST (14-36) U/L ALT (9-52) U/L Alkaline Phosphatase (38-126) U/L Total Protein (6.3-8.2) g/dL Albumin (3.5-5.0) g/dL Urine Color Yellow Urine Appearance Cloudy H (Clear) Urine pH 6.5 (5.0-8.0) Ur Specific [place] 1.022 (1.001-1.035) Urine Protein 1+ H (Negative) Urine Glucose (UA) Negative (Negative) Urine Ketones Negative (Negative) Urine Blood Large H (Negative) Urine Nitrite Negative (Negative) Urine Bilirubin Negative (Negative) Urine Urobilinogen <2.0 (<2.0) mg/dL Ur Leukocyte Esterase Large H (Negative) Urine RBC >182 H (0-5) /hpf Urine WBC 75 H (0-5) /hpf Ur Squamous Epith Cells 22 H (0-4) /hpf Urine Bacteria Rare H (None) /hpf Urine Mucus Rare H (None) /hpf Urine HCG, Qual Detected (Not Detectd) Trichomonas Ag (Rapid) Negative (Negative) Blood Type Blood Type Recheck 01/05/19 Range/Units 00:34 WBC (3.8-10.6) k/uL RBC (3.80-5.40) m/uL Hgb (11.4-16.0) gm/dL Hct (34.0-46.0) % MCV (80.0-100.0) fL MCH (25.0-35.0) pg MCHC (31.0-37.0) g/dL RDW (11.5-15.5) % Plt Count (150-450) k/uL Neutrophils % % Lymphocytes % % Monocytes % % Eosinophils % % Basophils % % Neutrophils # (1.3-7.7) k/uL Lymphocytes # (1.0-4.8) k/uL Monocytes # (0-1.0) k/uL Eosinophils # (0-0.7) k/uL Basophils # (0-0.2) k/uL Sodium (137-145) mmol/L Potassium (3.5-5.1) mmol/L Chloride (98-107) mmol/L Carbon Dioxide (22-30) mmol/L Anion Gap mmol/L BUN (7-17) mg/dL Creatinine (0.52-1.04) mg/dL Est GFR (CKD-EPI)AfAm (>60 ml/min/1.73 sqM) Est GFR (CKD-EPI)NonAf (>60 ml/min/1.73 sqM) Glucose (74-99) mg/dL POC Glucose (mg/dL) 95 (75-99) mg/dL POC Glu Recycling Attendant Orquidea Chapin Calcium (8.4-10.2) mg/dL Total Bilirubin (0.2-1.3) mg/dL AST (14-36) U/L ALT (9-52) U/L Alkaline Phosphatase (38-126) U/L Total Protein (6.3-8.2) g/dL Albumin (3.5-5.0) g/dL Urine Color Urine Appearance (Clear) Urine pH (5.0-8.0) Ur Specific [place] (1.001-1.035) Urine Protein (Negative) Urine Glucose (UA) (Negative) Urine Ketones (Negative) Urine Blood (Negative) Urine Nitrite (Negative) Urine Bilirubin (Negative) Urine Urobilinogen (<2.0) mg/dL Ur Leukocyte Esterase (Negative) Urine RBC (0-5) /hpf Urine WBC (0-5) /hpf Ur Squamous Epith Cells (0-4) /hpf Urine Bacteria (None) /hpf Urine Mucus (None) /hpf Urine HCG, Qual (Not Detectd) Trichomonas Ag (Rapid) (Negative) Blood Type Blood Type Recheck Disposition Clinical Impression: Asymptomatic bacteriuria, Threatened Disposition: HOME SELF-CARE Condition: Stable Instructions (If sedation given, give patient instructions): Threatened Miscarriage (ED) Additional Instructions: Patient to adhere to previously discussed treatment plan and will take med ication(s) as directed. Patient to follow up with PCP in 1-2 days. Patient to return to ED if symptoms do not improve. Please take medication as prescribed. Please follow-up with [facility] tomorrow. Please follow up with primary care provider in 1-2 days. Please return to ER if condition worsens in any way. Prescriptions: Cephalexin [Keflex] 500 mg PO Q12HR 10 Days cap Is patient prescribed a controlled substance at d/c from ED?: No Referrals: Garland Lopez MD [Primary Care Provider] - 1-2 days
[2019-01-06 15:21] LABS: N. gonorrhoeae,PCR Negative (Neg,Equiv); Neisseria Source Vagina
[2019-01-06 16:32] LABS: C. trachomatis,PCR Negative (Neg,Equiv); Chlamydia trachomatis Source Vagina
== END 2019-01-05 00:40 | disposition home or self-care (01) ==
LOC: EC 18:59
DX: O20.0 Threatened abortion (principal); O99.89 Other specified diseases and conditions complicating pregnancy, childbirth and the puerperium; R82.71 Bacteriuria; Z3A.01 Less than 8 weeks gestation of pregnancy; Z91.010 Allergy to peanuts; Z91.018 Allergy to other foods; Z88.2 Allergy status to sulfonamides; Z87.891 Personal history of nicotine dependence
CPT/HCPCS: 36415; 76801; 80053; 81001; 81025; 85025; 86900; 86901; 87070; 87086; 87205; 87491; 87591; 87808; 99284

== ENCOUNTER 2019-01-12 19:35 | Emergency (ER) | payer OTHER ==
--- NOTE | 2019-01-12 20:28 | ED ---
Female Urogenital HPI - General Chief complaint: Vaginal Bleeding Stated complaint: Vaginal bleeding-poss miscarriage Time Seen by Provider: 01/12/19 20:13 Source: patient, RN notes reviewed, old records reviewed Mode of arrival: ambulatory Limitations: no limitations - History of Present Illness Initial comments: Simba is a female presents or urgency department today with complaints of vaginal bleeding. She played she's 56 weeks . Patient reports that she's been having some intermittent bleeding throughout this is beginning stage of . She reports that have been passing clots over the past week. Patient states that she has had some lower abdominal cramping. She denies any other complaints. - Related Data Home Medications Medication Instructions Recorded Confirmed No Known Home Medications 01/12/19 01/12/19 Allergies Allergy/AdvReac Type Severity Reaction Status Date / Time nut - unspecified Allergy Anaphylaxis Verified 01/12/19 20:49 peanut Allergy Anaphylaxis Verified 01/12/19 20:49 Sulfa (Sulfonamide Allergy Rash/Hives Verified 01/12/19 20:49 Antibiotics) tree nut [Nut] Allergy Anaphylaxis Verified 01/12/19 20:49 Review of Systems ROS Statement: Those systems with pertinent positive or pertinent negative responses have been documented in the HPI. ROS Other: All systems not noted in ROS Statement are negative. Past Medical History Past Medical History: Seizure Disorder, Thyroid Disorder Additional Past Medical History / Comment(s): cerebral palsy, gullian barre in 2010, multiple miscarriages, History of Any Multi-Drug Resistant Organisms: None Reported Past Surgical History: No Surgical Hx Reported Additional Past Surgical History / Comment(s): no reported hx Past Anesthesia/Blood Transfusion Reactions: No Reported Reaction Additional Past Anesthesia/Blood Transfusion Reaction / Comment(s): FATHER- TAKES LONGER TO WAKE UP WITH ANESTHESIA" Past Psychological History: Anxiety, Bipolar Smoking Status: Former smoker Past Alcohol Use History: None Reported Past Drug Use History: None Reported - Past Family History Mother Family Medical History: Diabetes Mellitus, Hypertension, Seizure Disorder Additional Family Medical History / Comment(s): SVT Father History Unknown: Yes General Exam - General Exam Comments Initial Comments: 23-year-old female. Alert and oriented 3. Patient appears in no significant distress. Limitations: no limitations Head exam: Present: atraumatic, normocephalic, normal inspection Eye exam: Present: normal appearance, PERRL, EOMI. Absent: scleral icterus, conjunctival injection, periorbital swelling ENT exam: Present: normal exam, mucous membranes moist Neck exam: Present: normal inspection. Absent: tenderness, meningismus, lymphadenopathy Respiratory exam: Present: normal lung sounds bilaterally. Absent: respiratory distress, wheezes, rales, rhonchi, stridor Cardiovascular Exam: Present: regular rate, normal rhythm, normal heart sounds. Absent: systolic murmur, diastolic murmur, rubs, gallop, clicks GI/Abdominal exam: Present: soft, normal bowel sounds. Absent: distended, tenderness, guarding, rebound, rigid External exam: Present: other (Patient refused pelvic exam) Extremities exam: Present: normal inspection, full ROM, normal capillary refill. Absent: tenderness, pedal edema, joint swelling, calf tenderness Back exam: Present: normal inspection Neurological exam: Present: alert, oriented X3, CN II-XII intact Psychiatric exam: Present: normal affect, normal mood Course Vital Signs 01/12/19 01/12/19 19:39 22:29 Temperature 98.6 F Pulse Rate 82 77 Respiratory 18 16 Rate Blood Pressure 144/80 120/72 O2 Sat by Pulse 100 100 Oximetry Medical Decision Making - Medical Decision Making 23-year-old female presents with vaginal bleeding past week. She reports she's possible clots concerned she has a miscarriage. She had ultrasound last week drinker weeks 6 days. She states she's been having bleeding since that time. Her hCG level has increased. Therefore ultrasound was completed. This shows a viable IUP. Heart rate 132. Patient is Rh+. She has refused pelvic exam at this time after ultrasound. Patient has no signs of UTI. Discussed following up with her [employer]. She has an appointment on the fifth. - Lab Data Result diagrams: 01/12/19 20:44 Lab Results 01/12/19 01/12/19 01/12/19 Range/Units 20:44 20:44 20:44 WBC 9.3 (3.8-10.6) k/uL RBC 4.45 (3.80-5.40) m/uL Hgb 12.5 (11.4-16.0) gm/dL Hct 37.8 (34.0-46.0) % MCV 85.0 (80.0-100.0) fL MCH 28.2 (25.0-35.0) pg MCHC 33.1 (31.0-37.0) g/dL RDW 14.9 (11.5-15.5) % Plt Count 228 (150-450) k/uL Neutrophils % 75 % Lymphocytes % 19 % Monocytes % 5 % Eosinophils % 1 % Basophils % 0 % Neutrophils # 6.9 (1.3-7.7) k/uL Lymphocytes # 1.8 (1.0-4.8) k/uL Monocytes # 0.4 (0-1.0) k/uL Eosinophils # 0.1 (0-0.7) k/uL Basophils # 0.0 (0-0.2) k/uL HCG, Quant 181811.0 mIU/mL Urine Color Urine Appearance (Clear) Urine pH (5.0-8.0) Ur Specific [place] (1.001-1.035) Urine Protein (Negative) Urine Glucose (UA) (Negative) Urine Ketones (Negative) Urine Blood (Negative) Urine Nitrite (Negative) Urine Bilirubin (Negative) Urine Urobilinogen (<2.0) mg/dL Ur Leukocyte Esterase (Negative) Urine WBC (0-5) /hpf Ur Squamous Epith Cells (0-4) /hpf Urine Mucus (None) /hpf Blood Type O Positive Blood Type Recheck No 01/12/19 Range/Units 20:51 WBC (3.8-10.6) k/uL RBC (3.80-5.40) m/uL Hgb (11.4-16.0) gm/dL Hct (34.0-46.0) % MCV (80.0-100.0) fL MCH (25.0-35.0) pg MCHC (31.0-37.0) g/dL RDW (11.5-15.5) % Plt Count (150-450) k/uL Neutrophils % % Lymphocytes % % Monocytes % % Eosinophils % % Basophils % % Neutrophils # (1.3-7.7) k/uL Lymphocytes # (1.0-4.8) k/uL Monocytes # (0-1.0) k/uL Eosinophils # (0-0.7) k/uL Basophils # (0-0.2) k/uL HCG, Quant mIU/mL Urine Color Yellow Urine Appearance Cloudy H (Clear) Urine pH 6.5 (5.0-8.0) Ur Specific [place] 1.023 (1.001-1.035) Urine Protein Negative (Negative) Urine Glucose (UA) Negative (Negative) Urine Ketones Negative (Negative) Urine Blood Moderate H (Negative) Urine Nitrite Negative (Negative) Urine Bilirubin Negative (Negative) Urine Urobilinogen <2.0 (<2.0) mg/dL Ur Leukocyte Esterase Small H (Negative) Urine WBC 3 (0-5) /hpf Ur Squamous Epith Cells 2 (0-4) /hpf Urine Mucus Rare H (None) /hpf Blood Type Blood Type Recheck Disposition Clinical Impression: 6 weeks gestation of , Vaginal bleeding during Disposition: HOME SELF-CARE Condition: Good Instructions (If sedation given, give patient instructions): First Trimester Vaginal Bleed (ED) Additional Instructions: Patient needs to follow-up with her [employer] for further [employer] care. Return to emergency department if any alarming signs or symptoms occur. Is patient prescribed a controlled substance at d/c from ED?: No Referrals: None,Stated [Primary Care Provider] - 1-2 days Yaron Haile DO [Doctor of Osteopathic Medicine] - 1-2 days Time of Disposition: 23:55
[2019-01-12 21:10] LABS: Basophils % (A) 0 %; Eosinophils # (A) 0.1 k/uL (0-0.7); Eosinophils % (A) 1 %; HCT 37.8 % (34.0-46.0); HGB 12.5 gm/dL (11.4-16.0); Lymphocytes # (A) 1.8 k/uL (1.0-4.8); Lymphocytes % (A) 19 %; MCH 28.2 pg (25.0-35.0); MCHC 33.1 g/dL (31.0-37.0); Mean Platelet Volume 8.1; Monocytes # (A) 0.4 k/uL (0-1.0); Monocytes % (A) 5 %; Neutrophils # (A) 6.9 k/uL (1.3-7.7); Neutrophils % (A) 75 %; Platelet Count 228 k/uL (150-450); RBC 4.45 m/uL (3.80-5.40); RDW 14.9 % (11.5-15.5); WBC 9.3 k/uL (3.8-10.6)
[2019-01-12 21:23] LABS: Appearance,Urine Cloudy (Clear); Bilirubin,Urine Negative (Negative); Blood,Urine Moderate (Negative); Color,Urine Yellow; Glucose,Urine (UA) Negative (Negative); Ketones,Urine Negative (Negative); Leukocyte Esterase,Urine Small (Negative); Mucus,Urine Rare /hpf; Nitrite,Urine Negative (Negative); PH, Urine 6.5 (5.0-8.0); Protein,Urine Negative (Negative); Specific Gravity,Urine 1.023 (1.001-1.035); Squamous Epithelial Cell,Urine 2 /hpf (0-4); Urobilinogen,Urine <2.0 mg/dL (<2.0); WBC,Urine 3 /hpf (0-5)
--- NOTE | 2019-01-12 23:49 | US ---
EXAM: US First Trimester, Transabdominal US , Transvaginal CLINICAL HISTORY: Pain TECHNIQUE: Real-time transabdominal and transvaginal obstetrical ultrasound of the maternal pelvis and a first trimester with image documentation. Transvaginal imaging was used for better evaluation of the fetus and adnexa. COMPARISON: No relevant prior studies available. FINDINGS: Gestation: Single intrauterine gestation with embryonic pole crown-rump length 8.9 mm consistent with 6 weeks 6 day gestation. Yolk sac is demonstrated. Positive heart tones 132 bpm. Uterus/cervix: 9.8 x 8.4 x 6.5 cm Unremarkable. No myometrial mass. Ovaries: The right ovary measures 2.3 x 1.1 x 1.2 cm. The left ovary measures 2.7 x 1.5 x 2.3 cm. Normal symmetric blood flow noted to the left and right ovary no mass. Free fluid: No free fluid. IMPRESSION: Viable single intrauterine gestation proximal to 6 weeks 6 days by ultrasound. Positive heart tones 132 bpm. Normal appearance left and right ovary
[2019-01-13 00:17] VITALS: BP 119/80; PULSE 81; RESP 18; TEMP 98.3
== END 2019-01-13 00:16 | disposition home or self-care (01) ==
LOC: EC 19:35
DX: O20.9 Hemorrhage in early pregnancy, unspecified (principal); Z3A.01 Less than 8 weeks gestation of pregnancy; Z87.891 Personal history of nicotine dependence; Z88.2 Allergy status to sulfonamides; Z91.010 Allergy to peanuts; Z91.018 Allergy to other foods
CPT/HCPCS: 36415; 76801; 81001; 84702; 85025; 86900; 86901; 99284

== ENCOUNTER 2019-02-08 21:04 | Emergency (ER) | payer OTHER ==
[2019-02-08 21:09] VITALS: BP 133/86; PULSE 87; RESP 18; TEMP 98.4
[2019-02-08] MEDS ORDERED: SODIUM CHLORIDE 0.9% 2,000 ML IV STA (21:25)
[2019-02-08] MEDS ORDERED: ACETAMINOPHEN TAB 500 MG TAB PO STA (21:25)
[2019-02-08] MEDS ORDERED: diphenhydrAMINE 50 MG/ML 1 ML VIAL IVP STA (21:27)
[2019-02-08] MEDS ORDERED: METOCLOPRAMIDE 5 MG/ML 2 ML VIAL IVP STA (21:27)
[2019-02-08 22:15] LABS: Amorphous Sediment,Urine Rare /hpf; Appearance,Urine Cloudy (Clear); Bilirubin,Urine Negative (Negative); Blood,Urine Negative (Negative); Color,Urine Yellow; Glucose,Urine (UA) Negative (Negative); Ketones,Urine Negative (Negative); Leukocyte Esterase,Urine Moderate (Negative); Mucus,Urine Rare /hpf; Nitrite,Urine Negative (Negative); PH, Urine 6.5 (5.0-8.0); Protein,Urine Negative (Negative); Specific Gravity,Urine 1.019 (1.001-1.035); Squamous Epithelial Cell,Urine 1 /hpf (0-4); Urobilinogen,Urine <2.0 mg/dL (<2.0); WBC,Urine 4 /hpf (0-5)
[2019-02-08 22:16] LABS: ALT 20 U/L (9-52); AST 16 U/L (14-36); Alkaline Phosphatase 90 U/L (38-126); Anion Gap 8 mmol/L; Blood Urea Nitrogen 12 mg/dL (7-17); Calcium 9.4 mg/dL (8.4-10.2); Carbon Dioxide 24 mmol/L (22-30); Chloride 105 mmol/L (98-107); Glucose 86 mg/dL (74-99); Potassium 3.6 mmol/L (3.5-5.1); Sodium 137 mmol/L (137-145); Total Bilirubin 0.2 mg/dL (0.2-1.3); Total Protein 6.9 g/dL (6.3-8.2)
[2019-02-08 22:23] LABS: Basophils % (A) 0 %; Eosinophils # (A) 0.1 k/uL (0-0.7); Eosinophils % (A) 1 %; HCT 37.3 % (34.0-46.0); HGB 12.3 gm/dL (11.4-16.0); Lymphocytes # (A) 1.6 k/uL (1.0-4.8); Lymphocytes % (A) 22 %; MCH 28.6 pg (25.0-35.0); MCHC 32.8 g/dL (31.0-37.0); Mean Platelet Volume 8.5; Monocytes # (A) 0.4 k/uL (0-1.0); Monocytes % (A) 5 %; Neutrophils # (A) 5.1 k/uL (1.3-7.7); Neutrophils % (A) 69 %; Platelet Count 214 k/uL (150-450); RBC 4.29 m/uL (3.80-5.40); RDW 15.1 % (11.5-15.5); WBC 7.4 k/uL (3.8-10.6)
--- NOTE | 2019-02-08 22:55 | ED ---
General Adult HPI - General Chief complaint: Dizziness Stated complaint: vomiting,dizziness Time Seen by Provider: 02/08/19 21:12 Source: patient, RN notes reviewed Mode of arrival: ambulatory Limitations: no limitations - History of Present Illness Initial comments: 23-year-old female currently 9 weeks presents to the emergency department for a chief complaint of nausea vomiting and diarrhea 2 hours. Patient states she has had nausea throughout her but it worsened somewhat 2 hours ago. Patient also had one episode of diarrhea. Patient also complaining of a generalized headache throughout the day which she states is con sistent with previous migraines. Patient denies any sensation of room spinning or dizziness but does state that she felt somewhat lightheaded when vomiting. Patient denies any loss of consciousness.patient does have a confirmed intrauterine . Patient has no other complaints at this time including shortness of breath, chest pain, abdominal pain, or visual changes. - Related Data Home Medications Medication Instructions Recorded Confirmed No Known Home Medications 01/12/19 01/12/19 Allergies Allergy/AdvReac Type Severity Reaction Status Date / Time nut - unspecified Allergy Anaphylaxis Verified 01/12/19 20:49 peanut Allergy Anaphylaxis Verified 01/12/19 20:49 Sulfa (Sulfonamide Allergy Rash/Hives Verified 01/12/19 20:49 Antibiotics) tree nut [Nut] Allergy Anaphylaxis Verified 01/12/19 20:49 Review of Systems ROS Statement: Those systems with pertinent positive or pertinent negative responses have been documented in the HPI. ROS Other: All systems not noted in ROS Statement are negative. Past Medical History Past Medical History: Seizure Disorder, Thyroid Disorder Additional Past Medical History / Comment(s): cerebral palsy, gullian barre in 2010, multiple miscarriages, History of Any Multi-Drug Resistant Organisms: None Reported Past Surgical History: No Surgical Hx Reported Additional Past Surgical History / Comment(s): no reported hx Past Anesthesia/Blood Transfusion Reactions: No Reported Reaction Additional Past Anesthesia/Blood Transfusion Reaction / Comment(s): FATHER- TAKES LONGER TO WAKE UP WITH ANESTHESIA" Past Psychological History: Anxiety, Bipolar Smoking Status: Former smoker Past Alcohol Use History: None Reported Past Drug Use History: None Reported - Past Family History Mother Family Medical History: Diabetes Mellitus, Hypertension, Seizure Disorder Additional Family Medical History / Comment(s): SVT Father History Unknown: Yes General Exam Limitations: no limitations General appearance: alert, in no apparent distress Head exam: Present: atraumatic, normocephalic, normal inspection Eye exam: Present: normal appearance, PERRL, EOMI. Absent: scleral icterus, conjunctival injection, periorbital swelling ENT exam: Present: normal exam, normal oropharynx, mucous membranes moist, TM's normal bilaterally, normal external ear exam Neck exam: Present: normal inspection, full ROM. Absent: tenderness, meningismus, lymphadenopathy Respiratory exam: Present: normal lung sounds bilaterally. Absent: respiratory distress, wheezes, rales, rhonchi, stridor Cardiovascular Exam: Present: regular rate, normal rhythm, normal heart sounds. Absent: systolic murmur, diastolic murmur, rubs, gallop, clicks GI/Abdominal exam: Present: soft, normal bowel sounds. Absent: distended, tenderness, guarding, rebound, rigid Neurological exam: Present: alert, oriented X3, CN II-XII intact, normal gait Expanded Patient oriented to: Present: person, place, time Speech: Present: fluid speech Cranial nerves: EOM's Intact: Normal, Tongue Deviation: Normal, Nystagmus: Normal, Facial Sensation: Normal Cerebellar function: Finger to Nose: Normal Upper motor neuron: Pronator Drift: Normal Sensory exam: Upper Extremity Light Touch: Normal, Upper Extremity Pin Prick: Normal, Lower Extremity Light Touch: Normal, Lower Extremity Pin Prick: Normal Motor strength exam: RUE: 5, LUE: 5, RLE: 5, LLE: 5 Eye Response: (4) open spontaneously Motor Response: (6) obeys commands Verbal Response: (5) oriented [place] Total: 15 Psychiatric exam: Present: normal affect, normal mood Skin exam: Present: warm, dry, intact, normal color. Absent: rash Course Vital Signs 02/08/19 21:06 Temperature 98.4 F Pulse Rate 87 Respiratory 18 Rate Blood Pressure 133/86 O2 Sat by Pulse 99 Oximetry Medical Decision Making - Medical Decision Making 23-year-old female currently 9 weeks presents for chief complaint of nausea vomiting and diarrhea 2 hours. This is consistent with patient's nausea throughout her but somewhat worse. Patient also has a headache and visit with migraine the patient has had multiple times in the past. States pain is exactly the same. No focal neuro deficits on exam. Patient is well- appearing. She is watching TV and comfortably resting. No abdominal tenderness. Patient denies any vaginal bleeding or discharge. CBC CMP is unremarkable. Urine is negative patient was given Tylenol Reglan and Benadryl, feeling much better at this time although the Benadryl did make her feel somewhat "loopy." Patient states nausea and headache if completely subsided. Patient requesting discharge. Patient will follow up with primary care in 1-2 days as well as her [employer]. She will return here if she has any worsening symptoms. - Lab Data Result diagrams: 02/08/19 21:00 02/08/19 21:00 Lab Results 02/08/19 02/08/19 02/08/19 Range/Units 21:00 21:00 21:00 WBC 7.4 (3.8-10.6) k/uL RBC 4.29 (3.80-5.40) m/uL Hgb 12.3 (11.4-16.0) gm/dL Hct 37.3 (34.0-46.0) % MCV 87.0 (80.0-100.0) fL MCH 28.6 (25.0-35.0) pg MCHC 32.8 (31.0-37.0) g/dL RDW 15.1 (11.5-15.5) % Plt Count 214 (150-450) k/uL Neutrophils % 69 % Lymphocytes % 22 % Monocytes % 5 % Eosinophils % 1 % Basophils % 0 % Neutrophils # 5.1 (1.3-7.7) k/uL Lymphocytes # 1.6 (1.0-4.8) k/uL Monocytes # 0.4 (0-1.0) k/uL Eosinophils # 0.1 (0-0.7) k/uL Basophils # 0.0 (0-0.2) k/uL Sodium 137 (137-145) mmol/L Potassium 3.6 (3.5-5.1) mmol/L Chloride 105 (98-107) mmol/L Carbon Dioxide 24 (22-30) mmol/L Anion Gap 8 mmol/L BUN 12 (7-17) mg/dL Creatinine 0.48 L (0.52-1.04) mg/dL Est GFR (CKD-EPI)AfAm >90 (>60 ml/min/1.73 sqM) Est GFR (CKD-EPI)NonAf >90 (>60 ml/min/1.73 sqM) Glucose 86 (74-99) mg/dL Calcium 9.4 (8.4-10.2) mg/dL Total Bilirubin 0.2 (0.2-1.3) mg/dL AST 16 (14-36) U/L ALT 20 (9-52) U/L Alkaline Phosphatase 90 (38-126) U/L Total Protein 6.9 (6.3-8.2) g/dL Albumin 4.0 (3.5-5.0) g/dL Urine Color Urine Appearance (Clear) Urine pH (5.0-8.0) Ur Specific [place] (1.001-1.035) Urine Protein (Negative) Urine Glucose (UA) (Negative) Urine Ketones (Negative) Urine Blood (Negative) Urine Nitrite (Negative) Urine Bilirubin (Negative) Urine Urobilinogen (<2.0) mg/dL Ur Leukocyte Esterase (Negative) Urine WBC (0-5) /hpf Ur Squamous Epith Cells (0-4) /hpf Amorphous Sediment (None) /hpf Urine Mucus (None) /hpf Urine HCG, Qual Detected (Not Detectd) 02/08/19 Range/Units 21:00 WBC (3.8-10.6) k/uL RBC (3.80-5.40) m/uL Hgb (11.4-16.0) gm/dL Hct (34.0-46.0) % MCV (80.0-100.0) fL MCH (25.0-35.0) pg MCHC (31.0-37.0) g/dL RDW (11.5-15.5) % Plt Count (150-450) k/uL Neutrophils % % Lymphocytes % % Monocytes % % Eosinophils % % Basophils % % Neutrophils # (1.3-7.7) k/uL Lymphocytes # (1.0-4.8) k/uL Monocytes # (0-1.0) k/uL Eosinophils # (0-0.7) k/uL Basophils # (0-0.2) k/uL Sodium (137-145) mmol/L Potassium (3.5-5.1) mmol/L Chloride (98-107) mmol/L Carbon Dioxide (22-30) mmol/L Anion Gap mmol/L BUN (7-17) mg/dL Creatinine (0.52-1.04) mg/dL Est GFR (CKD-EPI)AfAm (>60 ml/min/1.73 sqM) Est GFR (CKD-EPI)NonAf (>60 ml/min/1.73 sqM) Glucose (74-99) mg/dL Calcium (8.4-10.2) mg/dL Total Bilirubin (0.2-1.3) mg/dL AST (14-36) U/L ALT (9-52) U/L Alkaline Phosphatase (38-126) U/L Total Protein (6.3-8.2) g/dL Albumin (3.5-5.0) g/dL Urine Color Yellow Urine Appearance Cloudy H (Clear) Urine pH 6.5 (5.0-8.0) Ur Specific [place] 1.019 (1.001-1.035) Urine Protein Negative (Negative) Urine Glucose (UA) Negative (Negative) Urine Ketones Negative (Negative) Urine Blood Negative (Negative) Urine Nitrite Negative (Negative) Urine Bilirubin Negative (Negative) Urine Urobilinogen <2.0 (<2.0) mg/dL Ur Leukocyte Esterase Moderate H (Negative) Urine WBC 4 (0-5) /hpf Ur Squamous Epith Cells 1 (0-4) /hpf Amorphous Sediment Rare H (None) /hpf Urine Mucus Rare H (None) /hpf Urine HCG, Qual (Not Detectd) Disposition Clinical Impression: Nausea vomiting and diarrhea, Headache Disposition: HOME SELF-CARE Condition: Good Instructions (If sedation given, give patient instructions): Nausea and Vomiting in (ED) Additional Instructions: Please drink plenty of fluids. Take Tylenol for any pain. Please follow-up w [facility] primary care in 1-2 days. Return here to the emergency department if you have any worsening symptoms. Is patient prescribed a controlled substance at d/c from ED?: No Referrals: Mi Unger MD [REFERRING] - 1-2 days Time of Disposition: 22:54
== END 2019-02-08 23:11 | disposition home or self-care (01) ==
LOC: EC 21:04
DX: O21.9 Vomiting of pregnancy, unspecified (principal); O99.89 Other specified diseases and conditions complicating pregnancy, childbirth and the puerperium; R19.7 Diarrhea, unspecified; R51 Headache; R42 Dizziness and giddiness; Z86.69 Personal history of other diseases of the nervous system and sense organs; Z87.891 Personal history of nicotine dependence; Z91.018 Allergy to other foods; Z91.010 Allergy to peanuts; Z88.2 Allergy status to sulfonamides; Z3A.09 9 weeks gestation of pregnancy
CPT/HCPCS: 36415; 80053; 85025; 81001; 81025; 99284; 96374; 96375; 96361; J1200; J2765

== ENCOUNTER 2019-02-23 15:55 | Emergency (ER) | payer OTHER ==
[2019-02-23 16:00] VITALS: RESP 18; TEMP 98.2
[2019-02-23 16:53] LABS: Basophils % (A) 0 %; Eosinophils # (A) 0.1 k/uL (0-0.7); Eosinophils % (A) 1 %; HCT 35.5 % (34.0-46.0); HGB 11.9 gm/dL (11.4-16.0); Lymphocytes # (A) 1.6 k/uL (1.0-4.8); Lymphocytes % (A) 21 %; MCH 28.8 pg (25.0-35.0); MCHC 33.5 g/dL (31.0-37.0); MCV 85.8 fL (80.0-100.0); Mean Platelet Volume 8.5; Monocytes # (A) 0.3 k/uL (0-1.0); Monocytes % (A) 4 %; Neutrophils # (A) 5.3 k/uL (1.3-7.7); Neutrophils % (A) 71 %; Platelet Count 187 k/uL (150-450); RBC 4.14 m/uL (3.80-5.40); WBC 7.4 k/uL (3.8-10.6)
[2019-02-23 16:55] LABS: Amorphous Sediment,Urine Rare /hpf; Appearance,Urine Turbid (Clear); Bilirubin,Urine Negative (Negative); Blood,Urine Negative (Negative); Color,Urine Yellow; Glucose,Urine (UA) Negative (Negative); Ketones,Urine Negative (Negative); Leukocyte Esterase,Urine Negative (Negative); Mucus,Urine Rare /hpf; Nitrite,Urine Negative (Negative); Protein,Urine Negative (Negative); Specific Gravity,Urine 1.022 (1.001-1.035); Squamous Epithelial Cell,Urine 2 /hpf (0-4); Urobilinogen,Urine <2.0 mg/dL (<2.0)
[2019-02-23 17:01] LABS: ALT 16 U/L (9-52); AST 18 U/L (14-36); Albumin 3.8 g/dL (3.5-5.0); Alkaline Phosphatase 85 U/L (38-126); Anion Gap 7 mmol/L; Blood Urea Nitrogen 9 mg/dL (7-17); Calcium 9.2 mg/dL (8.4-10.2); Carbon Dioxide 24 mmol/L (22-30); Chloride 107 mmol/L (98-107); Glucose 86 mg/dL (74-99); Sodium 138 mmol/L (137-145); Total Bilirubin 0.1 mg/dL (0.2-1.3); Total Protein 6.6 g/dL (6.3-8.2)
--- NOTE | 2019-02-23 17:21 | ED ---
Female Urogenital HPI - General Chief complaint: Vaginal Bleeding Stated complaint: 13 wks /bleeding Time Seen by Provider: 02/23/19 16:07 Source: patient Mode of arrival: ambulatory Limitations: no limitations - History of Present Illness Initial comments: A1 female with no past medical history presenting today for chief complaint of leading of . Patient states her last menstrual period was every night she believes she is about 13 weeks . She states today which woke with 6 EMGs restaurant she noticed a blood clot in the toilet. She states she has had light spotting since. Patient states she has mild lower abdominal cramping that has been resolving throughout her stay in the emergency department. Patient denies dysuria urgency frequency she denies any severe abdominal pain chest pain source of breath or lower extremity swelling. Patient was concerned she was miscarrying and presents emergency department for further evaluation. Upon arrival patient appears well there is no signs of acute distress. She is hemodynamically stable. Remaining review of systems negative Last Menstrual Period: 11/22/18 - Related Data Home Medications Medication Instructions Recorded Confirmed Aspirin [[place] Aspirin EC] 81 mg PO DAILY 02/23/19 02/23/19 Folic Acid 1 mg PO DAILY 02/23/19 02/23/19 Pta-Enje-Heipo Acid 1 cap PO DAILY 02/23/19 02/23/19 [-U Capsule (formulary)] Allergies Allergy/AdvReac Type Severity Reaction Status Date / Time nut - unspecified Allergy Anaphylaxis Verified 02/23/19 16:20 peanut Allergy Anaphylaxis Verified 02/23/19 16:20 Sulfa (Sulfonamide Allergy Rash/Hives Verified 02/23/19 16:20 Antibiotics) tree nut [Nut] Allergy Anaphylaxis Verified 02/23/19 16:20 Review of Systems ROS Statement: Those systems with pertinent positive or pertinent negative responses have been documented in the HPI. ROS Other: All systems not noted in ROS Statement are negative. Past Medical History Past Medical History: Seizure Disorder, Thyroid Disorder Additional Past Medical History / Comment(s): cerebral palsy, gullian barre in 2010, multiple miscarriages, History of Any Multi-Drug Resistant Organisms: None Reported Past Surgical History: No Surgical Hx Reported Additional Past Surgical History / Comment(s): no reported hx Past Anesthesia/Blood Transfusion Reactions: No Reported Reaction Additional Past Anesthesia/Blood Transfusion Reaction / Comment(s): FATHER- TAKES LONGER TO WAKE UP WITH ANESTHESIA" Past Psychological History: Anxiety, Bipolar Smoking Status: Former smoker Past Alcohol Use History: None Reported Past Drug Use History: None Reported - Past Family History Mother Family Medical History: Diabetes Mellitus, Hypertension, Seizure Disorder Additional Family Medical History / Comment(s): SVT Father History Unknown: Yes General Exam - General Exam Comments Initial Comments: General: The patient is awake and alert, in no distress, and does not appear acutely ill. Eye: Pupils are equal, round and reactive to light, extra-ocular movements are intact. No nystagmus. There is normal conjunctiva bilaterally. No signs of icterus. Ears, nose, mouth and throat: There are moist mucous membranes and no oral lesions. Neck: The neck is supple, there is no tenderness or JVD. Cardiovascular: There is a regular rate and rhythm. No murmur, rub or gallop is appreciated. Respiratory: Lungs are clear to auscultation, respirations are non-labored, breath sounds are equal. No wheezes, stridor, rales, or rhonchi. Gastrointestinal: Soft, non-distended, non-tender abdomen without masses or organomegaly noted. There is no rebound or guarding present. No CVA tenderness. Bowel sounds are unremarkable. Pelvic: No external lesions. Vaginal mucosa pink well rugated. No adnexal or cervical motion tenderness. No blood in the vault. Small amount of scant vaginal discharge. No odor. Musculoskeletal: Normal ROM, no tenderness. Strength 5/5. Sensation intact. Pulses equal bilaterally 2+. Neurological: A&O x 3. CN II-XII intact, There are no obvious motor or sensory deficits. Coordination appears grossly intact. Speech is normal. Skin: Skin is warm and dry and no rashes or lesions are noted. Psychiatric: Cooperative, appropriate mood & affect, normal judgment. Limitations: no limitations Course Vital Signs 02/23/19 02/23/19 15:58 17:43 Temperature 98.2 F Pulse Rate 75 76 Respiratory 18 18 Rate Blood Pressure 150/59 132/86 O2 Sat by Pulse 95 97 Oximetry Medical Decision Making - Medical Decision Making Well-appearing 23-year-old female who believes she is 13 weeks presenting for bleeding in . Laboratory studies reveal stable hemoglobin. Patient denies heavy bleeding. Patient is O+. No antibodies. No vaginal bleeding evident on pelvic examination. There is discharge. Cultures pending. [place] is negative. Patient denies concern for STD and refuses prophylactic treatment. Patient urinalysis revealed no signs of urinary tract infection. US revealed 13 wk without complicating process. At this time feel patient is stable for discharge with outpatient [facility] follow-up for threatened . Patient has established care with Dr. Haile. At this time feel patient is stable for discharge with outpatient f/u as scheduled. Pt is agreeable with care plan and discharge. - Lab Data Result diagrams: 02/23/19 16:30 02/23/19 16:30 Lab Results 02/23/19 02/23/19 02/23/19 Range/Units 16:30 16:30 16:30 WBC 7.4 (3.8-10.6) k/uL RBC 4.14 (3.80-5.40) m/uL Hgb 11.9 (11.4-16.0) gm/dL Hct 35.5 (34.0-46.0) % MCV 85.8 (80.0-100.0) fL MCH 28.8 (25.0-35.0) pg MCHC 33.5 (31.0-37.0) g/dL RDW 15.0 (11.5-15.5) % Plt Count 187 (150-450) k/uL Neutrophils % 71 % Lymphocytes % 21 % Monocytes % 4 % Eosinophils % 1 % Basophils % 0 % Neutrophils # 5.3 (1.3-7.7) k/uL Lymphocytes # 1.6 (1.0-4.8) k/uL Monocytes # 0.3 (0-1.0) k/uL Eosinophils # 0.1 (0-0.7) k/uL Basophils # 0.0 (0-0.2) k/uL Sodium 138 (137-145) mmol/L Potassium 4.0 (3.5-5.1) mmol/L Chloride 107 (98-107) mmol/L Carbon Dioxide 24 (22-30) mmol/L Anion Gap 7 mmol/L BUN 9 (7-17) mg/dL Creatinine 0.64 (0.52-1.04) mg/dL Est GFR (CKD-EPI)AfAm >90 (>60 ml/min/1.73 sqM) Est GFR (CKD-EPI)NonAf >90 (>60 ml/min/1.73 sqM) Glucose 86 (74-99) mg/dL Calcium 9.2 (8.4-10.2) mg/dL Total Bilirubin 0.1 L (0.2-1.3) mg/dL AST 18 (14-36) U/L ALT 16 (9-52) U/L Alkaline Phosphatase 85 (38-126) U/L Total Protein 6.6 (6.3-8.2) g/dL Albumin 3.8 (3.5-5.0) g/dL HCG, Quant 56580.3 mIU/mL Urine Color Urine Appearance (Clear) Urine pH (5.0-8.0) Ur Specific [place] (1.001-1.035) Urine Protein (Negative) Urine Glucose (UA) (Negative) Urine Ketones (Negative) Urine Blood (Negative) Urine Nitrite (Negative) Urine Bilirubin (Negative) Urine Urobilinogen (<2.0) mg/dL Ur Leukocyte Esterase (Negative) Ur Squamous Epith Cells (0-4) /hpf Amorphous Sediment (None) /hpf Urine Mucus (None) /hpf Trichomonas Ag (Rapid) (Negative) Blood Type O Positive Blood Type Recheck No Antibody Screen NEGATIVE Spec Expiration Date 02/26/2019 - 232902/23/19 02/23/19 Range/Units 16:30 17:50 WBC (3.8-10.6) k/uL RBC (3.80-5.40) m/uL Hgb (11.4-16.0) gm/dL Hct (34.0-46.0) % MCV (80.0-100.0) fL MCH (25.0-35.0) pg MCHC (31.0-37.0) g/dL RDW (11.5-15.5) % Plt Count (150-450) k/uL Neutrophils % % Lymphocytes % % Monocytes % % Eosinophils % % Basophils % % Neutrophils # (1.3-7.7) k/uL Lymphocytes # (1.0-4.8) k/uL Monocytes # (0-1.0) k/uL Eosinophils # (0-0.7) k/uL Basophils # (0-0.2) k/uL Sodium (137-145) mmol/L Potassium (3.5-5.1) mmol/L Chloride (98-107) mmol/L Carbon Dioxide (22-30) mmol/L Anion Gap mmol/L BUN (7-17) mg/dL Creatinine (0.52-1.04) mg/dL Est GFR (CKD-EPI)AfAm (>60 ml/min/1.73 sqM) Est GFR (CKD-EPI)NonAf (>60 ml/min/1.73 sqM) Glucose (74-99) mg/dL Calcium (8.4-10.2) mg/dL Total Bilirubin (0.2-1.3) mg/dL AST (14-36) U/L ALT (9-52) U/L Alkaline Phosphatase (38-126) U/L Total Protein (6.3-8.2) g/dL Albumin (3.5-5.0) g/dL HCG, Quant mIU/mL Urine Color Yellow Urine Appearance Turbid H (Clear) Urine pH 7.0 (5.0-8.0) Ur Specific [place] 1.022 (1.001-1.035) Urine Protein Negative (Negative) Urine Glucose (UA) Negative (Negative) Urine Ketones Negative (Negative) Urine Blood Negative (Negative) Urine Nitrite Negative (Negative) Urine Bilirubin Negative (Negative) Urine Urobilinogen <2.0 (<2.0) mg/dL Ur Leukocyte Esterase Negative (Negative) Ur Squamous Epith Cells 2 (0-4) /hpf Amorphous Sediment Rare H (None) /hpf Urine Mucus Rare H (None) /hpf Trichomonas Ag (Rapid) Negative (Negative) Blood Type Blood Type Recheck Antibody Screen Spec Expiration Date Disposition Clinical Impression: Threatened , Bleeding in early , Cramping complicating , antepartum Disposition: HOME SELF-CARE Condition: Good Instructions (If sedation given, give patient instructions): Threatened Miscarriage (ED) Additional Instructions: Please use medication as discussed. Please follow-up with OBGYN as scheduled. Please return to emergency room if the symptoms increase or worsen or for any other concerns. Is patient prescribed a controlled substance at d/c from ED?: No Referrals: None,Stated [Primary Care Provider] - 1-2 days Yaron Haile DO [Doctor of Osteopathic Medicine] - 1-2 days Time of Disposition: 17:53
--- NOTE | 2019-02-23 17:30 | US ---
EXAMINATION TYPE: Transabdominal DATE OF EXAM: 02/23/2019 5:09 PM COMPARISON: 01/04/2019 CLINICAL HISTORY: pain. Bleeding earlier today. EXAM PERFORMED: Transabdominal (TA) EXAM MEASUREMENTS: GESTATIONAL AGE / DATING Physician Established: (13 weeks/2 days) EDC: 08/29/2019 Dates by LMP: (13 weeks/2 days) EDC: 08/29/2019 Dates by First Scan: (6 weeks/6 days) EDC: 08/29/2019 Dates by Current Scan for: (13 weeks/0 days) EDC: 08/31/2019 MATERNAL ANATOMY Uterus: 11.3 x 9.5 x 10.1 cm Right Ovary: 2.7 x 1.5 x 1.6 cm Left Ovary: 2.8 x 1.3 x 3.1 cm Post CDS / Adnexa: wnl Presence of free fluid: no Presence of corpus luteal cyst: no Presence of subchorionic bleed: no CRL: 6.71cm (13 weeks/0 days) Heart Rate: 142 bpm Rhythm: Normal IUP: Viable IUP Beta HcG (if available): Not available at this time IMPRESSION: No complicating process seen. There is satisfactory growth compared to old exam.
[2019-02-23 17:44] VITALS: BP 132/86; PULSE 76
[2019-02-23 17:45] LABS: HCG,Quantitative Serum 70323.3 mIU/mL
[2019-02-24 15:57] LABS: C. trachomatis,PCR Negative (Neg,Equiv); Chlamydia trachomatis Source Vagina; N. gonorrhoeae,PCR Negative (Neg,Equiv); Neisseria Source Vagina
== END 2019-02-23 17:55 | disposition home or self-care (01) ==
LOC: EC 15:55
DX: O20.0 Threatened abortion (principal); O26.891 Other specified pregnancy related conditions, first trimester; R10.9 Unspecified abdominal pain; Z3A.13 13 weeks gestation of pregnancy; Z79.82 Long term (current) use of aspirin; Z88.2 Allergy status to sulfonamides; Z91.010 Allergy to peanuts; Z91.018 Allergy to other foods; Z87.891 Personal history of nicotine dependence
CPT/HCPCS: 36415; 76801; 80053; 81001; 84702; 85025; 86850; 86900; 86901; 87070; 87205; 87491; 87591; 87808; 99284

== ENCOUNTER 2019-03-09 20:56 | Emergency (ER) | payer OTHER ==
[2019-03-09] MEDS ORDERED: PYRIDOXINE 100 MG/ML 1 ML VIAL IVP STA (21:25)
[2019-03-09] MEDS ORDERED: SODIUM CHLORIDE 0.9% 1,000 ML IV STA ×2 (21:25)
[2019-03-09] MEDS ORDERED: diphenhydrAMINE 50 MG/ML 1 ML VIAL IVP STA (21:25)
[2019-03-09] MEDS ORDERED: SODIUM CHLORIDE 0.9% 500 ML 500 ML IV STA (21:25)
[2019-03-09 22:22] LABS: Basophils % (A) 0 %; Eosinophils # (A) 0.2 k/uL (0-0.7); Eosinophils % (A) 2 %; HCT 35.7 % (34.0-46.0); HGB 11.9 gm/dL (11.4-16.0); Lymphocytes # (A) 1.6 k/uL (1.0-4.8); Lymphocytes % (A) 16 %; MCH 28.3 pg (25.0-35.0); MCHC 33.3 g/dL (31.0-37.0); MCV 84.8 fL (80.0-100.0); Mean Platelet Volume 8.1; Monocytes # (A) 0.4 k/uL (0-1.0); Monocytes % (A) 4 %; Neutrophils # (A) 7.9 k/uL (1.3-7.7); Neutrophils % (A) 78 %; Platelet Count 191 k/uL (150-450); RBC 4.21 m/uL (3.80-5.40); RDW 15.8 % (11.5-15.5); WBC 10.2 k/uL (3.8-10.6)
--- NOTE | 2019-03-09 22:28 | ED ---
Nausea/Vomiting/Diarrhea HPI - General Chief complaint: Nausea/Vomiting/Diarrhea Stated complaint: Dizzy, Chest Pain-15 weeks Time Seen by Provider: 03/09/19 21:21 Source: patient, old records reviewed Mode of arrival: wheelchair Limitations: no limitations - History of Present Illness Initial comments: This is a 23-year-old female the ER for evaluation does say for evaluation regards to nausea vomiting and . Patient has positive currently. With nausea vomiting is been affecting entire . She is on medication with history of. Preeclampsia. Patient otherwise has no abdominal pain, no active nausea vomiting. MD complaint: nausea, vomiting -: week(s) Description of Vomiting: food contents, watery Associated Abdominal Pain: No Radiation: none Severity: mild Severity scale (1-10): 3 Worsens with: none Associated Symptoms: loss of appetite, nausea/vomiting - Related Data Home Medications Medication Instructions Recorded Confirmed Aspirin [[place] Aspirin EC] 81 mg PO DAILY 02/23/19 03/09/19 Folic Acid 1 mg PO DAILY 02/23/19 03/09/19 Dyf-Koeo-Iavkl Acid 1 cap PO DAILY 02/23/19 03/09/19 [-U Capsule (formulary)] Allergies Allergy/AdvReac Type Severity Reaction Status Date / Time nut - unspecified Allergy Anaphylaxis Verified 03/09/19 21:22 peanut Allergy Anaphylaxis Verified 03/09/19 21:22 Sulfa (Sulfonamide Allergy Rash/Hives Verified 03/09/19 21:22 Antibiotics) tree nut [Nut] Allergy Anaphylaxis Verified 03/09/19 21:22 Review of Systems ROS Statement: Those systems with pertinent positive or pertinent negative responses have been documented in the HPI. ROS Other: All systems not noted in ROS Statement are negative. Past Medical History Past Medical History: Seizure Disorder, Thyroid Disorder Additional Past Medical History / Comment(s): cerebral palsy, gullian barre in 2011, multiple miscarriages, History of Any Multi-Drug Resistant Organisms: None Reported Past Surgical History: No Surgical Hx Reported Additional Past Surgical History / Comment(s): no reported hx Past Anesthesia/Blood Transfusion Reactions: No Reported Reaction Additional Past Anesthesia/Blood Transfusion Reaction / Comment(s): FATHER- TAKES LONGER TO WAKE UP WITH ANESTHESIA" Past Psychological History: Anxiety, Bipolar Smoking Status: Former smoker Past Alcohol Use History: None Reported Past Drug Use History: None Reported - Past Family History Mother Family Medical History: Diabetes Mellitus, Hypertension, Seizure Disorder Additional Family Medical History / Comment(s): SVT Father History Unknown: Yes General Exam Limitations: no limitations General appearance: alert, in no apparent distress Head exam: Present: atraumatic, normocephalic, normal inspection Eye exam: Present: normal appearance, PERRL, EOMI. Absent: scleral icterus, conjunctival injection, periorbital swelling ENT exam: Present: normal exam, mucous membranes moist Neck exam: Present: normal inspection. Absent: tenderness, meningismus, lymphadenopathy Respiratory exam: Present: normal lung sounds bilaterally. Absent: respiratory distress, wheezes, rales, rhonchi, stridor Cardiovascular Exam: Present: regular rate, normal rhythm, normal heart sounds. Absent: systolic murmur, diastolic murmur, rubs, gallop, clicks GI/Abdominal exam: Present: soft, normal bowel sounds. Absent: distended, tenderness, guarding, rebound, rigid Extremities exam: Present: normal inspection, full ROM, normal capillary refill. Absent: tenderness, pedal edema, joint swelling, calf tenderness Back exam: Present: normal inspection Neurological exam: Present: alert, oriented X3, CN II-XII intact Psychiatric exam: Present: normal affect, normal mood Skin exam: Present: warm, dry, intact, normal color. Absent: rash Course Vital Signs 03/09/19 21:07 Temperature 98.5 F Pulse Rate 91 Respiratory 20 Rate Blood Pressure 128/79 O2 Sat by Pulse 98 Oximetry - Reevaluation(s) Reevaluation #1: 03/09/19 23:30 Medical record is reviewed Reevaluation #2: 03/09/19 23:30 Patient symptoms are improved feeling better Medical Decision Making - Medical Decision Making 23 female DEL with nausea vomiting does have follow-up appointment tomorrow with her OB labwork is otherwise normal. Patient will be discharged home history of. Preeclampsia blood pressure now currently normal. No protein in the urine - Lab Data Result diagrams: 03/09/19 22:05 03/09/19 22:05 Lab Results 03/09/19 03/09/19 03/09/19 Range/Units 22:05 22:05 22:32 WBC 10.2 (3.8-10.6) k/uL RBC 4.21 (3.80-5.40) m/uL Hgb 11.9 (11.4-16.0) gm/dL Hct 35.7 (34.0-46.0) % MCV 84.8 (80.0-100.0) fL MCH 28.3 (25.0-35.0) pg MCHC 33.3 (31.0-37.0) g/dL RDW 15.8 H (11.5-15.5) % Plt Count 191 (150-450) k/uL Neutrophils % 78 % Lymphocytes % 16 % Monocytes % 4 % Eosinophils % 2 % Basophils % 0 % Neutrophils # 7.9 H (1.3-7.7) k/uL Lymphocytes # 1.6 (1.0-4.8) k/uL Monocytes # 0.4 (0-1.0) k/uL Eosinophils # 0.2 (0-0.7) k/uL Basophils # 0.0 (0-0.2) k/uL Sodium 139 (137-145) mmol/L Potassium 3.7 (3.5-5.1) mmol/L Chloride 107 (98-107) mmol/L Carbon Dioxide 24 (22-30) mmol/L Anion Gap 8 mmol/L BUN 12 (7-17) mg/dL Creatinine 0.53 (0.52-1.04) mg/dL Est GFR (CKD-EPI)AfAm >90 (>60 ml/min/1.73 sqM) Est GFR (CKD-EPI)NonAf >90 (>60 ml/min/1.73 sqM) Glucose 87 (74-99) mg/dL Calcium 9.3 (8.4-10.2) mg/dL Phosphorus 3.7 (2.5-4.5) mg/dL Magnesium 1.8 (1.6-2.3) mg/dL Total Bilirubin 0.1 L (0.2-1.3) mg/dL AST 15 (14-36) U/L ALT 14 (9-52) U/L Alkaline Phosphatase 88 (38-126) U/L Creatine Kinase 30 (30-135) U/L Total Protein 7.0 (6.3-8.2) g/dL Albumin 4.0 (3.5-5.0) g/dL Urine Color Yellow Urine Appearance Cloudy H (Clear) Urine pH 6.5 (5.0-8.0) Ur Specific [place] 1.027 (1.001-1.035) Urine Protein Negative (Negative) Urine Glucose (UA) Negative (Negative) Urine Ketones Negative (Negative) Urine Blood Negative (Negative) Urine Nitrite Negative (Negative) Urine Bilirubin Negative (Negative) Urine Urobilinogen <2.0 (<2.0) mg/dL Ur Leukocyte Esterase Moderate H (Negative) Urine RBC 3 (0-5) /hpf Urine WBC 5 (0-5) /hpf Ur Squamous Epith Cells 5 H (0-4) /hpf Amorphous Sediment Rare H (None) /hpf Urine Mucus Rare H (None) /hpf - EKG Data -: EKG Interpreted by Me (EKG shows normal sinus rhythm rate of 92, [place] 150, QRS 84, QTC 445) Disposition Clinical Impression: Vomiting, Nausea & vomiting, Nausea/vomiting in Disposition: HOME SELF-CARE Condition: Good Instructions (If sedation given, give patient instructions): Acute Nausea and Vomiting (ED) Is patient prescribed a controlled substance at d/c from ED?: No Referrals: None,Stated [Primary Care Provider] - 1-2 days
[2019-03-09 22:56] LABS: Amorphous Sediment,Urine Rare /hpf; Appearance,Urine Cloudy (Clear); Bilirubin,Urine Negative (Negative); Blood,Urine Negative (Negative); Color,Urine Yellow; Glucose,Urine (UA) Negative (Negative); Ketones,Urine Negative (Negative); Leukocyte Esterase,Urine Moderate (Negative); Mucus,Urine Rare /hpf; Nitrite,Urine Negative (Negative); PH, Urine 6.5 (5.0-8.0); Protein,Urine Negative (Negative); RBC,Urine 3 /hpf (0-5); Specific Gravity,Urine 1.027 (1.001-1.035); Squamous Epithelial Cell,Urine 5 /hpf (0-4); Urobilinogen,Urine <2.0 mg/dL (<2.0); WBC,Urine 5 /hpf (0-5)
[2019-03-09 23:03] LABS: ALT 14 U/L (9-52); AST 15 U/L (14-36); Alkaline Phosphatase 88 U/L (38-126); Anion Gap 8 mmol/L; Blood Urea Nitrogen 12 mg/dL (7-17); Calcium 9.3 mg/dL (8.4-10.2); Carbon Dioxide 24 mmol/L (22-30); Chloride 107 mmol/L (98-107); Creatine Kinase 30 U/L (30-135); Glucose 87 mg/dL (74-99); Magnesium 1.8 mg/dL (1.6-2.3); Phosphorus 3.7 mg/dL (2.5-4.5); Potassium 3.7 mmol/L (3.5-5.1); Sodium 139 mmol/L (137-145); Total Bilirubin 0.1 mg/dL (0.2-1.3)
[2019-03-10 00:15] VITALS: BP 125/73; PULSE 79; RESP 19; TEMP 98.7
== END 2019-03-10 00:01 | disposition home or self-care (01) ==
LOC: EC 20:56
DX: O21.9 Vomiting of pregnancy, unspecified (principal); O99.89 Other specified diseases and conditions complicating pregnancy, childbirth and the puerperium; R07.9 Chest pain, unspecified; R19.7 Diarrhea, unspecified; R63.0 Anorexia; Z79.82 Long term (current) use of aspirin; Z91.018 Allergy to other foods; Z91.010 Allergy to peanuts; Z88.2 Allergy status to sulfonamides; Z87.891 Personal history of nicotine dependence; Z3A.15 15 weeks gestation of pregnancy
CPT/HCPCS: 36415; 80053; 82550; 83735; 84100; 85025; 81001; 87086; 99284; 96374; 96375; 96361; J1200; J3415

== ENCOUNTER → 2019-03-19 | Outpatient (CLI) | payer OTHER | END | disposition home or self-care (01) | LOC: LABWHC1 13:59 | PROVIDERS: ATTEND Obstetrics & Gynecology Maternal & Fetal Medicine | DX: Z34.81 Encounter for supervision of other normal pregnancy, first trimester (principal) | CPT/HCPCS: 36415; 82105; 82677; 84702; 86336 ==

== ENCOUNTER 2019-03-26 23:40 | Emergency (ER) | payer OTHER ==
[2019-03-26 23:45] VITALS: RESP 16; TEMP 99.3
[2019-03-27 00:59] LABS: Appearance,Urine Cloudy (Clear); Bacteria,Urine Rare /hpf; Bilirubin,Urine Negative (Negative); Blood,Urine Negative (Negative); Color,Urine Yellow; Glucose,Urine (UA) Negative (Negative); Ketones,Urine Negative (Negative); Leukocyte Esterase,Urine Small (Negative); Mucus,Urine Rare /hpf; Nitrite,Urine Negative (Negative); PH, Urine 6.5 (5.0-8.0); Protein,Urine Negative (Negative); RBC,Urine 1 /hpf (0-5); Specific Gravity,Urine 1.014 (1.001-1.035); Squamous Epithelial Cell,Urine 11 /hpf (0-4); Urobilinogen,Urine <2.0 mg/dL (<2.0); WBC,Urine 9 /hpf (0-5)
--- NOTE | 2019-03-27 01:29 | ED ---
General Adult HPI - General Chief complaint: Urogenital Stated complaint: Abd Pain Time Seen by Provider: 03/26/19 23:53 Source: patient, RN notes reviewed Mode of arrival: ambulatory Limitations: no limitations - History of Present Illness Initial comments: 23-year-old female presents to the emergency department for a chief complaint of pelvic discomfort 3 days. Patient currently 17 weeks . Patient states that she is having suprapubic cramping that is sometimes sharp in nature. States she feels like she has pressure in her vagina. Denies any vaginal bleeding. Patient states this has been ongoing for 3 days but she has not had a chance to be evaluated. Patient denies fevers or chills. Patient denies diarrhea, states she is having normal bowel movements. Denies nausea or vomiting. States otherwise feels fine.Patient has no other complaints at this time including shortness of breath, chest pain, nausea or vomiting, headache, or visual changes. - Related Data Home Medications Medication Instructions Recorded Confirmed Aspirin [[place] Aspirin EC] 81 mg PO DAILY 02/23/19 03/09/19 Folic Acid 1 mg PO DAILY 02/23/19 03/09/19 Ogq-Vqdg-Zfrbk Acid 1 cap PO DAILY 02/23/19 03/09/19 [-U Capsule (formulary)] Allergies Allergy/AdvReac Type Severity Reaction Status Date / Time nut - unspecified Allergy Anaphylaxis Verified 03/26/19 23:45 peanut Allergy Anaphylaxis Verified 03/26/19 23:45 Sulfa (Sulfonamide Allergy Rash/Hives Verified 03/26/19 23:45 Antibiotics) tree nut [Nut] Allergy Anaphylaxis Verified 03/26/19 23:45 Review of Systems ROS Statement: Those systems with pertinent positive or pertinent negative responses have been documented in the HPI. ROS Other: All systems not noted in ROS Statement are negative. Past Medical History Past Medical History: Seizure Disorder, Thyroid Disorder Additional Past Medical History / Comment(s): cerebral palsy, gullian barre in 2010, multiple miscarriages, History of Any Multi-Drug Resistant Organisms: None Reported Past Surgical History: No Surgical Hx Reported Additional Past Surgical History / Comment(s): no reported hx Past Anesthesia/Blood Transfusion Reactions: No Reported Reaction Additional Past Anesthesia/Blood Transfusion Reaction / Comment(s): FATHER- TAKES LONGER TO WAKE UP WITH ANESTHESIA" Past Psychological History: Anxiety, Bipolar Smoking Status: Former smoker Past Alcohol Use History: None Reported Past Drug Use History: None Reported - Past Family History Mother Family Medical History: Diabetes Mellitus, Hypertension, Seizure Disorder Additional Family Medical History / Comment(s): SVT Father History Unknown: Yes General Exam Limitations: no limitations General appearance: alert, in no apparent distress Head exam: Present: atraumatic, normocephalic, normal inspection Eye exam: Present: normal appearance, PERRL, EOMI. Absent: scleral icterus, conjunctival injection, periorbital swelling ENT exam: Present: normal exam, mucous membranes moist Neck exam: Present: normal inspection, full ROM. Absent: tenderness, meningismus, lymphadenopathy Respiratory exam: Present: normal lung sounds bilaterally. Absent: respiratory distress, wheezes, rales, rhonchi, stridor Cardiovascular Exam: Present: regular rate, normal rhythm, normal heart sounds. Absent: systolic murmur, diastolic murmur, rubs, gallop, clicks GI/Abdominal exam: Present: soft, tenderness (Mild lower suprapubic tenderness. No upper abdominal tenderness, no right upper quadrant tenderness.), normal bowel sounds. Absent: distended, guarding, rebound, rigid External exam: Present: normal external exam. Absent: erythema, swelling, lesions, lacerations, ecchymosis Speculum exam: Present: normal speculum exam, vaginal discharge (Mild discharge noted). Absent: erythema, cervical discharge, vaginal bleeding, foreign body, tissue, laceration By manual exam: Present: adnexal tenderness, uterine tenderness. Absent: normal by manual exam, cervical motion tenderness Neurological exam: Present: alert, oriented X3, CN II-XII intact Psychiatric exam: Present: normal affect, normal mood Course Vital Signs 03/26/19 03/27/19 23:43 02:08 Temperature 99.3 F Pulse Rate 98 84 Respiratory 16 16 Rate Blood Pressure 133/83 113/68 O2 Sat by Pulse 98 100 Oximetry Medical Decision Making - Medical Decision Making 23-year-old female presents to the emergency department for a chief complaint of lower abdominal cramping 3 days. States it is sharp in nature. States it comes and goes. States she feels a pressure in her vagina associated with this. Denies any vaginal bleeding. Patient is currently 17 weeks . No nausea or vomiting. Denies diarrhea, having normal bowel movements. Denies fevers or chills. On exam patient has minimal lower abdominal tenderness without any guarding or rebound. No right upper quadrant tenderness. No upper abdominal tenderness at all. On bimanual exam patient does have uterus and bilateral adnexal tenderness. Minimal discharge, no significant discharge present. Gonorrhea, chlamydia pending. Trichomonas is negative. Urine does show small leukocyte esterase with 9 white blood cells and 11 squamous cells. This will be cultured. Ultrasound shows a normal with a heart rate of 158. On discharge patient's blood pressure 113/68. Patient follow-up with [facility] tomorrow. She will return here if she has any worsening symptoms. - Lab Data Lab Results 03/27/19 03/27/19 Range/Units 00:18 00:18 Urine Color Yellow Urine Appearance Cloudy H (Clear) Urine pH 6.5 (5.0-8.0) Ur Specific [place] 1.014 (1.001-1.035) Urine Protein Negative (Negative) Urine Glucose (UA) Negative (Negative) Urine Ketones Negative (Negative) Urine Blood Negative (Negative) Urine Nitrite Negative (Negative) Urine Bilirubin Negative (Negative) Urine Urobilinogen <2.0 (<2.0) mg/dL Ur Leukocyte Esterase Small H (Negative) Urine RBC 1 (0-5) /hpf Urine WBC 9 H (0-5) /hpf Ur Squamous Epith Cells 11 H (0-4) /hpf Urine Bacteria Rare H (None) /hpf Urine Mucus Rare H (None) /hpf Trichomonas Ag (Rapid) Negative (Negative) Disposition Clinical Impression: Pelvic pain during Disposition: HOME SELF-CARE Condition: Good Instructions (If sedation given, give patient instructions): Abdominal Pain in (ED) Additional Instructions: Please follow up with [facility] in one to 2 days. Please return here to the emergency department after having any worsening symptoms. Is patient prescribed a controlled substance at d/c from ED?: No Referrals: Yaron Haile DO [Doctor of Osteopathic Medicine] - 1-2 days Time of Disposition: 01:58
--- NOTE | 2019-03-27 01:52 | US ---
EXAM: US Uterus, Limited CLINICAL HISTORY: ITS.REASON US Reason: Pain TECHNIQUE: Real-time ultrasound of the maternal uterus (limited) with image documentation. COMPARISON: No relevant prior studies available. FINDINGS: Single live intrauterine is identified. BPD, head circumference, abdominal circumference, femur length (4.1 cm, 15 cm, 12.5 cm, 2.6 cm respectively) Estimated age is 18 weeks and 0 days. Estimated weight is 220 g. KENNY is 12.3 cm. Cervical length is 3.3 cm. position is vertex. Placenta is posterior. No peritoneal. Heart rate is 158 bpm. IMPRESSION: Normal ultrasound. Estimated delivery date is 08/28/19.
[2019-03-27 02:10] VITALS: BP 113/68; PULSE 84
[2019-03-29 13:38] LABS: C. trachomatis,PCR Negative (Neg,Equiv); Chlamydia trachomatis Source Vagina
[2019-03-29 13:44] LABS: N. gonorrhoeae,PCR Negative (Neg,Equiv); Neisseria Source Vagina
== END 2019-03-27 02:26 | disposition home or self-care (01) ==
LOC: EC 23:40
DX: O26.892 Other specified pregnancy related conditions, second trimester (principal); R10.2 Pelvic and perineal pain; Z3A.17 17 weeks gestation of pregnancy; Z87.891 Personal history of nicotine dependence; Z79.82 Long term (current) use of aspirin; Z79.899 Other long term (current) drug therapy; Z91.010 Allergy to peanuts; Z88.2 Allergy status to sulfonamides; Z91.018 Allergy to other foods
CPT/HCPCS: 76805; 81001; 87070; 87086; 87205; 87491; 87591; 87808; 99284

== ENCOUNTER 2019-05-08 18:46 | Emergency (ER) | payer OTHER ==
[2019-05-08 18:57] VITALS: BP 135/94; PULSE 94; RESP 18; TEMP 98.3
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
--- NOTE | 2019-05-08 20:11 | XR ---
PROCEDURE: XR hand complete LT - 3V DATE AND TIME: 05/08/2019 7:18 PM CLINICAL INDICATION: PHH; Pain TECHNIQUE: Department protocol COMPARISON: None FINDINGS: There is no fracture or malalignment. The soft tissues are unremarkable. IMPRESSION: NO ACUTE PROCESS.
--- NOTE | 2019-05-08 20:16 | XR ---
PROCEDURE: XR wrist complete LT - 4V DATE AND TIME: 05/08/2019 7:18 PM CLINICAL INDICATION: PHH; Pain TECHNIQUE: Department protocol COMPARISON: None FINDINGS: There is no fracture or malalignment. The soft tissues are unremarkable. IMPRESSION: NO ACUTE PROCESS.
== END 2019-05-08 20:33 | disposition home or self-care (01) ==
LOC: EC 18:46
DX: O9A.212 Injury, poisoning and certain other consequences of external causes complicating pregnancy, second trimester (principal); S69.92XA Unspecified injury of left wrist, hand and finger(s), initial encounter; Z87.891 Personal history of nicotine dependence; Z88.2 Allergy status to sulfonamides; Z91.010 Allergy to peanuts; Z91.018 Allergy to other foods; Z79.82 Long term (current) use of aspirin; Z87.59 Personal history of other complications of pregnancy, childbirth and the puerperium; Z3A.24 24 weeks gestation of pregnancy; Y04.0XXA Assault by unarmed brawl or fight, initial encounter; Y92.009 Unspecified place in unspecified non-institutional (private) residence as the place of occurrence of the external cause
CPT/HCPCS: 99284

== ENCOUNTER 2019-06-12 01:25 | Observation (INO) | payer OTHER ==
[2019-06-12 02:21] LABS: Anisocytosis Slight; Basophils % (A) 0 %; Eosinophils # (A) 0.2 k/uL (0-0.7); Eosinophils % (A) 2 %; HCT 32.9 % (34.0-46.0); HGB 10.4 gm/dL (11.4-16.0); Hypochromasia Slight; Lymphocytes # (A) 1.7 k/uL (1.0-4.8); Lymphocytes % (A) 16 %; MCH 27.4 pg (25.0-35.0); MCHC 31.6 g/dL (31.0-37.0); MCV 86.8 fL (80.0-100.0); Mean Platelet Volume 8.2; Monocytes # (A) 0.6 k/uL (0-1.0); Monocytes % (A) 5 %; Neutrophils # (A) 8.1 k/uL (1.3-7.7); Neutrophils % (A) 76 %; Platelet Count 190 k/uL (150-450); RBC 3.79 m/uL (3.80-5.40); RDW 16.7 % (11.5-15.5); WBC 10.7 k/uL (3.8-10.6)
[2019-06-12 02:28] LABS: Appearance,Urine Clear (Clear); Bacteria,Urine Rare /hpf; Bilirubin,Urine Negative (Negative); Blood,Urine Negative (Negative); Color,Urine Yellow; Glucose,Urine (UA) Negative (Negative); Ketones,Urine Negative (Negative); Leukocyte Esterase,Urine Large (Negative); Mucus,Urine Rare /hpf; Nitrite,Urine Negative (Negative); PH, Urine 6.5 (5.0-8.0); Protein,Urine Trace (Negative); RBC,Urine 1 /hpf (0-5); Specific Gravity,Urine 1.022 (1.001-1.035); Squamous Epithelial Cell,Urine 5 /hpf (0-4); Urobilinogen,Urine <2.0 mg/dL (<2.0); WBC,Urine 11 /hpf (0-5)
[2019-06-12 02:30] LABS: ALT 18 U/L (9-52); AST 16 U/L (14-36); African American GFR (CKD) >90 (>60 ml/min/1.73 sqM); Amylase 67 U/L (30-110); Anion Gap 11 mmol/L; Blood Urea Nitrogen 10 mg/dL (7-17); Carbon Dioxide 21 mmol/L (22-30); Chloride 105 mmol/L (98-107); Glucose 101 mg/dL (74-99); Magnesium 1.7 mg/dL (1.6-2.3); Phosphorus 3.7 mg/dL (2.5-4.5); Potassium 3.9 mmol/L (3.5-5.1); Sodium 137 mmol/L (137-145); Total Bilirubin 0.2 mg/dL (0.2-1.3); Uric Acid 3.6 mg/dL (3.7-7.4)
[2019-06-12 02:46] LABS: LDH 368 U/L (313-618)
[2019-06-12 03:17] LABS: INR 0.8 (<1.2); Prothrombin Time 9.3 sec (9.0-12.0)
[2019-06-12 04:20] VITALS: BP 120/72; PULSE 96; RESP 16
[2019-06-12 04:26] VITALS: BMI 33.0
[2019-06-12 04:31] VITALS: TEMP 97
--- NOTE | 2019-06-12 07:50 | US ---
EXAMINATION TYPE: US abdomen complete DATE OF EXAM: 06/12/2019 COMPARISON: CT 02/04/2018 CLINICAL HISTORY: 23-year-old female abdominal pain. TECHNIQUE: Multiple sonographic images of the abdomen are obtained. FINDINGS: FUR EXAMINER NOTES: Limited exam due to overlying bowel gas. Patient is 28 weeks EXAM MEASUREMENTS: Liver Length: 16.7 cm Gallbladder Wall: 0.2 cm CBD: 0.4 cm Spleen: 11.4 cm Right Kidney: 9.4 x 3.8 x 4.6 cm Left Kidney: 10.8 x 4.5 x 4.4 cm Pancreas: Mostly obscured by bowel gas. The visualized portion of the pancreatic body shows no gross abnormality. Liver: wnl as visualized Gallbladder: wnl Evidence for sonographic Jorgensen's sign: No CBD: wnl as visualized Spleen: wnl Right Kidney: No hydronephrosis. Left Kidney: No hydronephrosis. Upper IVC: wnl Abd Aorta: wnl as visualized, there are portions that are obscured by bowel gas IMPRESSION: Technically limited exam. No specific abnormality seen.
--- NOTE | 2019-06-12 07:56 | US ---
EXAMINATION TYPE: US OB >= 14 wk fetus DATE OF EXAM: 06/12/2019 COMPARISON: US 03/27/2019 CLINICAL HISTORY: 23-year-old female abdominal pain TECHNIQUE: Transabdominal (TA) FINDINGS: GESTATIONAL AGE / DATING Physician Established: (28 weeks/6 days) EDC: 08/29/2019 Dates by LMP: (28 weeks/6 days) EDC: 08/29/2019 Dates by First Scan: (28 weeks/4 days) EDC: 08/31/2019 Dates by Current Scan: (29 weeks/5 days) EDC: 08/23/2019 (5 days more growth than expected from 03/27/2019). Beta HCG (if available): Not available at this time SURVEY IUP: Single PLACENTA: Fundal PREVIA: No Previa KENNY: 14.5 cm Normal CERVICAL LENGTH (transabdominal: norm > 3.0cm): 3.9 cm BIOMETRY PRESENTATION: Vertex LIE: Longitudinal BPD: 7.4 cm 29 weeks / 6 days HC: 27.0 cm 29 weeks / 4 days AC: 25.6 cm 19 weeks / 6 days FL: 5.6 cm 29 weeks / 4 days ESTIMATED WEIGHT IN GRAMS: 1429 grams ESTIMATED WEIGHT IN LBS/OZ: 3 lbs. 2 oz. WEIGHT PERCENTAGE BASED ON ESTABLISHED DATES: 67% HC/AC: 1.06 Normal FL/AC: 22% Normal HEART RATE: 150 bpm RHYTHM: Normal Head Machinist notes: Viable IUP, measurements consistent with dates. IMPRESSION: 1. Single live intrauterine with estimated gestational age of 28 weeks 6 days by LMP. Curre nt ultrasound biometry is larger but concordant (29 weeks 5 days) placing the child at the 67th perce ntile for weight. Note 5 days more growth than expected from 03/27/2019. 2. Note that this was not performed as a survey for assessment of structures.
--- NOTE | 2019-06-12 08:07 | P.HPOB ---
History of Present Illness H&P Date: 06/12/19 Chief Complaint: Abdominal pain: at 28 weeks Patient is a 23-year-old G 6 P3 at 28 weeks gestation who for last 2 days had significant headaches, visual changes, abdominal epigastric pain, and overall generalized nausea and not feeling well. With her prior she did have an episode of preeclampsia and she is very concerned about this recurring. Vital signs are however stable with blood pressures in the 1 teens to 120s over 70s. There are no other outward signs or symptoms of preeclampsia, i.e., peripheral edema is absent as well as deep tendon reflexes being normal. Preeclampsia labs were done and were all normal. There is trace protein in her urine but other otherwise no other significant findings. We are admitting her for observational care and an ultrasound will be performed first thing in the morning of both the abdomen and the fetus. This will be done to rule out either renal stones or choledocholithiasis. Vital signs are stable and afebrile. Heart regular, lungs clear, extremities without pain. Abdomen overall is soft there is no significant specific tenderness there is no acute pain in the right upper quadrant at my evaluation. She does have positive bowel sounds. Assessment intrauterine 28 weeks Plan ultrasound and depending on results we'll make plans for future care. Past Medical History Past Medical History: Seizure Disorder, Thyroid Disorder Additional Past Medical History / Comment(s): cerebral palsy, gullian barre in 2010, multiple miscarriages, History of Any Multi-Drug Resistant Organisms: None Reported Past Surgical History: No Surgical Hx Reported Additional Past Surgical History / Comment(s): no reported hx Past Anesthesia/Blood Transfusion Reactions: No Reported Reaction Additional Past Anesthesia/Blood Transfusion Reaction / Comment(s): FATHER- TAKES LONGER TO WAKE UP WITH ANESTHESIA" Past Psychological History: Anxiety, Bipolar Additional Psychological History / Comment(s): lives with children Smoking Status: Former smoker Past Alcohol Use History: None Reported Additional Past Alcohol Use History / Comment(s): started smoking at Age 15 and quit age 16 ONLY SMOKED 2 CIG PER DAY Past Drug Use History: None Reported - Past Family History Mother Family Medical History: Diabetes Mellitus, Hypertension, Seizure Disorder Additional Family Medical History / Comment(s): SVT Father History Unknown: Yes Medications and Allergies Home Medications Medication Instructions Recorded Confirmed Type Aspirin [[place] Aspirin EC] 81 mg PO DAILY 02/23/19 06/12/19 History Folic Acid 1 mg PO DAILY 02/23/19 06/12/19 History Kdm-Ynob-Ghwja Acid 1 cap PO DAILY 02/23/19 06/12/19 History [-U Capsule (formulary)] Allergies Allergy/AdvReac Type Severity Reaction Status Date / Time nut - unspecified Allergy Anaphylaxis Verified 06/12/19 01:31 peanut Allergy Anaphylaxis Verified 06/12/19 01:31 Sulfa (Sulfonamide Allergy Rash/Hives Verified 06/12/19 01:31 Antibiotics) tree nut [Nut] Allergy Anaphylaxis Verified 06/12/19 01:31 Exam Osteopathic Statement: *. No significant issues noted on an osteopathic structural exam other than those noted in the History and Physical/Consult. Vital Signs Temp Pulse Resp BP Pulse Ox 06/12/19 04:00 96 16 120/72 06/12/19 01:50 97.0 F L 85 16 129/77 98 Intake and Output 06/11/19 06/12/19 06/12/19 22:59 06:59 14:59 Other: # Voids 3 Weight 82.1 kg Results Result Diagrams: 06/12/19 01:59 06/12/19 01:59 Abnormal Lab Results - Last 24 Hours (Table) 06/12/19 06/12/19 06/12/19 Range/Units 01:59 01:59 01:59 WBC 10.7 H (3.8-10.6) k/uL RBC 3.79 L (3.80-5.40) m/uL Hgb 10.4 L (11.4-16.0) gm/dL Hct 32.9 L (34.0-46.0) % RDW 16.7 H (11.5-15.5) % Neutrophils # 8.1 H (1.3-7.7) k/uL Fibrinogen (200-500) mg/dL Carbon Dioxide 21 L (22-30) mmol/L Creatinine 0.48 L (0.52-1.04) mg/dL Glucose 101 H (74-99) mg/dL Uric Acid 3.6 L (3.7-7.4) mg/dL Urine Protein Trace H (Negative) Ur Leukocyte Esterase Large H (Negative) Urine WBC 11 H (0-5) /hpf Ur Squamous Epith Cells 5 H (0-4) /hpf Urine Bacteria Rare H (None) /hpf Urine Mucus Rare H (None) /hpf 06/12/19 Range/Units 03:00 WBC (3.8-10.6) k/uL RBC (3.80-5.40) m/uL Hgb (11.4-16.0) gm/dL Hct (34.0-46.0) % RDW (11.5-15.5) % Neutrophils # (1.3-7.7) k/uL Fibrinogen 561 H (200-500) mg/dL Carbon Dioxide (22-30) mmol/L Creatinine (0.52-1.04) mg/dL Glucose (74-99) mg/dL Uric Acid (3.7-7.4) mg/dL Urine Protein (Negative) Ur Leukocyte Esterase (Negative) Urine WBC (0-5) /hpf Ur Squamous Epith Cells (0-4) /hpf Urine Bacteria (None) /hpf Urine Mucus (None) /hpf
--- NOTE | 2019-06-12 08:15 | P.DS ---
Providers Date of admission: 06/12/19 03:28 Expected date of discharge: 06/12/19 Attending physician: Yaron Haile Primary care physician: Stated None Hospital Course: Patient is doing much better this morning. Her pain is essentially resolved. Ultrasound reveals no gross findings with either or her abdomen. With normal labs as well the most likely scenario is that this is Precis related pain. Headache is completely resolved as well no visual changes this morning the room however, did have a strong odor of marijuana will need to add drug screen just to verify no other substance issues. She relates that she does not smoke marijuana and that it is her significant other that is using but the room unfortunately smell strongly of THC. She is aware that she is not supposed to be smoking and that she really should limit completely her exposure to the drug has some the drum will filter through her system and potential for the baby. Physical exam is generally unremarkable as morning. Assessment intrauterine 28 weeks pain essentially resolved no other gross findings Follow-up with me in 1 week. Return with increase or worsening of symptoms. Patient Condition at Discharge: Good Plan - Discharge Summary New Discharge Prescriptions: No Action Uch-Wazn-Fqgvc Acid [-U Capsule (formulary)] 1 cap PO DAILY Folic Acid 1 mg PO DAILY Aspirin [[place] Aspirin EC] 81 mg PO DAILY Discharge Medication List Aspirin [[place] Aspirin EC] 81 mg PO DAILY 02/23/19 [History] Folic Acid 1 mg PO DAILY 02/23/19 [History] Wjn-Byyk-Lhkah Acid [-U Capsule (formulary)] 1 cap PO DAILY 02/23/19 [History]
[2019-06-12 18:33] LABS: Urine Alcohol Negative (Negative); Urine Barbiturate Negative (Negative); Urine Cocaine Negative (Negative); Urine Methadone Negative (Negative); Urine Opiates Negative (Negative); Urine Phencyclidine Negative (Negative)
== END 2019-06-12 10:22 | disposition home or self-care (01) ==
LOC: FBPOP 01:25 → 4FBP 03:28
PROVIDERS: ADMIT Obstetrics & Gynecology; ATTEND Obstetrics & Gynecology
DX: O26.893 Other specified pregnancy related conditions, third trimester (principal); Z3A.28 28 weeks gestation of pregnancy; R10.13 Epigastric pain; R51 Headache; H53.149 Visual discomfort, unspecified; R11.0 Nausea; T75.89XA Other specified effects of external causes, initial encounter; O99.353 Diseases of the nervous system complicating pregnancy, third trimester; G40.909 Epilepsy, unspecified, not intractable, without status epilepticus; G80.9 Cerebral palsy, unspecified; O99.343 Other mental disorders complicating pregnancy, third trimester; F31.9 Bipolar disorder, unspecified; F41.9 Anxiety disorder, unspecified; Z87.891 Personal history of nicotine dependence; Z88.2 Allergy status to sulfonamides; Z91.018 Allergy to other foods; Z91.010 Allergy to peanuts; Z79.82 Long term (current) use of aspirin; Z83.3 Family history of diabetes mellitus; Z82.49 Family history of ischemic heart disease and other diseases of the circulatory system; Z82.0 Family history of epilepsy and other diseases of the nervous system
CPT/HCPCS: 80051; 82150; 82247; 82565; 83615; 83690; 83735; 84100; 82947; 84450; 84460; 84520; 84550; 85025; 85384; 85610; 85730; 81001; 80306; 76700; 76805; G0378

== ENCOUNTER 2019-07-03 09:15 | Outpatient (CLI) | payer OTHER ==
[2019-07-03 10:11] LABS: Appearance,Urine Cloudy (Clear); Bacteria,Urine Occasional /hpf; Bilirubin,Urine Negative (Negative); Blood,Urine Negative (Negative); Color,Urine Yellow; Glucose,Urine (UA) Negative (Negative); Ketones,Urine Negative (Negative); Leukocyte Esterase,Urine Large (Negative); Mucus,Urine Rare /hpf; Nitrite,Urine Negative (Negative); PH, Urine 6.5 (5.0-8.0); Protein,Urine Trace (Negative); RBC,Urine 2 /hpf (0-5); Specific Gravity,Urine 1.016 (1.001-1.035); Squamous Epithelial Cell,Urine 17 /hpf (0-4); Urobilinogen,Urine <2.0 mg/dL (<2.0); WBC,Urine 165 /hpf (0-5)
[2019-07-03 10:25] VITALS: BP 115/78; PULSE 88; RESP 14; TEMP 96.1
--- NOTE | 2019-08-12 00:33 | P.MSEPDOC ---
Presenting Problems - Arrival Data Date of Arrival on Unit: 07/03/19 Time of Arrival on Unit: 09:35 Mode of Transport: Ambulatory - Complaint OB-Reason for Admission/Chief Complaint: Other Comment: pain Medical History - Information : 6 Para: 3 Term: 0 : 3 Abortions: Spontaneous or Elective: 2 Number of Living Children: 3 - Gestational Age Gestational Age by ARCELIA (wks/days): 31 Weeks and 6 Days Review of Systems - Review of Systems Constitutional: No problems Breast: No problems ENT: No problems Cardiovascular: No problems Respiratory: No problems Gastrointestinal: No problems Genitourinary: No problems Musculoskeletal: No problems Neurological: No problems Skin: No problems Vital Signs - Temperature Temperature: 96.1 F Temperature Source: Temporal Artery Scan - Pulse Right Brachial Pulse Rate: 88 Pulse Assessment Method: Automatic Cuff - Respirations Respiratory Rate: 14 Oxygen Delivery Method: Room Air - Blood Pressure Right Arm Blood Pressure: 115/78 Blood Pressure Mean: 90 Blood Pressure Source: Automatic Cuff Medical Screen Scoring (Pre) - Cervical Exam Dilation: 0 cm = 0 Membranes: Intact - Uterine Contractions Frequency: N/A Duration: N/A Intensity: N/A - Maternal Vital Signs Maternal Temperature: N/A Maternal Blood Pressure: N/A Signs of Preeclampsia: N/A Maternal Respirations: N/A - Maternal Trauma Maternal Trauma: N/A - Assessment - Baby A Baseline FHR: 145 Heart Rate - NICHD Category: Category I (Normal) = 0 NST: Reactive - Total Score - Baby A Total Score - Baby A: 0 - Total Score - Baby B Total Score - Baby B: 0 - Total Score - Baby C Total Score - Baby C: 0 - Level of Risk - Baby A Level of Risk - Baby A: Low (0-5) - Level of Risk - Baby B Level of Risk - Baby B: Low (0-5) - Level of Risk - Baby C Level of Risk - Baby C: Low (0-5) Physician Notification (Pre) - Physician Notified Physician Notified Date: 07/03/19 Physician Notified Time: 10:10 Physician/Practitioner Notifed:: aguilar Spoke With: aguilar New Order Received: Yes - Notification Comment Comment: reported pt visit with c/o of sharp shooting pains x2 days with more intense today, reported hx of deliveries, collected ua, ffn, cervical exam, reactive nst, no contractions,. pt may be discharged with ua results wnl, no need to send ffn Disposition - Disposition OB Disposition: Triage, Discharge to home Discharge Date: 07/03/19 Discharge Time: 11:07 I agree with the RN Medical Screening Exam: Yes Risk & Benefit of care provided described in d/c instruction: Yes Diagnosis: FALSE LABOR BEFORE 37 COMPLETED WEEKS OF GEST, SECOND TRI
== END 2019-07-03 11:08 | disposition home or self-care (01) ==
LOC: FBPOP 09:15
PROVIDERS: ATTEND Obstetrics & Gynecology
DX: O47.03 False labor before 37 completed weeks of gestation, third trimester (principal); Z3A.31 31 weeks gestation of pregnancy
CPT/HCPCS: 59025; 81001; 87086; G0463; 99213

== ENCOUNTER 2019-07-11 02:35 | Outpatient (CLI) | payer OTHER ==
[2019-07-11 02:59] LABS: Amorphous Sediment,Urine Rare /hpf; Appearance,Urine Clear (Clear); Bacteria,Urine Rare /hpf; Bilirubin,Urine Negative (Negative); Blood,Urine Negative (Negative); Color,Urine Yellow; Glucose,Urine (UA) Negative (Negative); Ketones,Urine Negative (Negative); Leukocyte Esterase,Urine Large (Negative); Mucus,Urine Rare /hpf; Nitrite,Urine Negative (Negative); PH, Urine 6.5 (5.0-8.0); Protein,Urine Negative (Negative); RBC,Urine 1 /hpf (0-5); Specific Gravity,Urine 1.015 (1.001-1.035); Squamous Epithelial Cell,Urine 3 /hpf (0-4); Urobilinogen,Urine <2.0 mg/dL (<2.0); WBC,Urine 16 /hpf (0-5)
[2019-07-11 04:15] VITALS: BP 134/79; PULSE 97; RESP 16; TEMP 98.2
--- NOTE | 2019-07-11 10:48 | P.MSEPDOC ---
Presenting Problems - Arrival Data Date of Arrival on Unit: 07/11/19 Time of Arrival on Unit: 02:35 Mode of Transport: Wheelchair - Complaint OB-Reason for Admission/Chief Complaint: Pain Comment: abdominal pain that shoots to her lower back. Medical History - Information : 6 Para: 3 Term: 1 : 2 Abortions: Spontaneous or Elective: 2 Number of Living Children: 3 - Gestational Age Gestational Age by ARCELIA (wks/days): 33 Weeks and 0 Days - History Complications: GDM Review of Systems - Review of Systems Constitutional: No problems Breast: No problems ENT: No problems Cardiovascular: No problems Respiratory: No problems Gastrointestinal: No problems Genitourinary: No problems Musculoskeletal: No problems Neurological: Dizziness Skin: No problems Vital Signs - Temperature Temperature: 98.2 F Temperature Source: Oral - Pulse Right Sitting Pulse Rate: 97 Pulse Assessment Method: Automatic Cuff - Respirations Respiratory Rate: 16 Oxygen Delivery Method: Room Air O2 Sat by Pulse Oximetry: 97 - Blood Pressure Right Arm Sitting Blood Pressure: 134/79 Blood Pressure Mean: 97 Blood Pressure Source: Automatic Cuff Medical Screen Scoring (Pre) - Cervical Exam Dilation: Exam Deferred Effacement: Exam Deferred Membranes: Intact - Uterine Contractions Frequency: N/A - Maternal Vital Signs Maternal Temperature: N/A Maternal Respirations: N/A - Maternal Trauma Maternal Trauma: N/A - Assessment - Baby A Baseline FHR: 145 Heart Rate - NICHD Category: Category I (Normal) = 0 NST: Reactive - Total Score - Baby A Total Score - Baby A: 0 - Total Score - Baby B Total Score - Baby B: 0 - Total Score - Baby C Total Score - Baby C: 0 - Level of Risk - Baby A Level of Risk - Baby A: Low (0-5) - Level of Risk - Baby B Level of Risk - Baby B: Low (0-5) - Level of Risk - Baby C Level of Risk - Baby C: Low (0-5) Physician Notification (Pre) - Physician Notified Physician Notified Date: 07/11/19 Physician Notified Time: 03:24 Physician/Practitioner Notifed:: Mic Song Order Received: Yes - Notification Comment Comment: antibiotic and yeast infection med sent to [facility] Disposition - Disposition OB Disposition: Discharge to home, Written follow up instructions reviewed Discharge Date: 07/11/19 Discharge Time: 03:45 I agree with the RN Medical Screening Exam: Yes Risk & Benefit of care provided described in d/c instruction: Yes Diagnosis: URINARY TRACT INFECTION, SITE NOT SPECIFIED
== END 2019-07-11 03:45 | disposition home or self-care (01) ==
LOC: FBPOP 02:35
PROVIDERS: ATTEND Obstetrics & Gynecology
DX: O99.89 Other specified diseases and conditions complicating pregnancy, childbirth and the puerperium (principal); N39.0 Urinary tract infection, site not specified; Z3A.33 33 weeks gestation of pregnancy
CPT/HCPCS: 59025; 81001; G0463; 99213

== ENCOUNTER 2019-07-23 00:40 | Outpatient (CLI) | payer OTHER ==
[2019-07-23 01:20] VITALS: BP 118/77; PULSE 100; RESP 16; TEMP 97.2
[2019-07-23 01:41] LABS: Glucose,Whole Blood 116 mg/dL (75-99)
[2019-07-23] MEDS ORDERED: BETAMET ACET-BETAMETH SOD PHOS 6 MG/ML VIAL IM SCH (02:15)
--- NOTE | 2019-08-01 09:02 | P.MSEPDOC ---
Presenting Problems - Arrival Data Date of Arrival on Unit: 07/23/19 Time of Arrival on Unit: 00:40 Mode of Transport: Wheelchair - Complaint OB-Reason for Admission/Chief Complaint: Possible Onset of Labor Medical History - Information : 6 Para: 3 Term: 2 : 1 Abortions: Spontaneous or Elective: 2 Number of Living Children: 3 - Gestational Age Gestational Age by ARCELIA (wks/days): 34 Weeks and 5 Days - History Complications: GDM, Prior Review of Systems - Review of Systems Constitutional: No problems Breast: No problems ENT: No problems Cardiovascular: No problems Respiratory: No problems Gastrointestinal: No problems Genitourinary: No problems Musculoskeletal: No problems Neurological: No problems Skin: No problems Vital Signs - Temperature Temperature: 97.2 F Temperature Source: Temporal Artery Scan - Pulse Right Brachial Pulse Rate: 100 Pulse Assessment Method: Automatic Cuff - Respirations Respiratory Rate: 16 Oxygen Delivery Method: Room Air O2 Sat by Pulse Oximetry: 97 - Blood Pressure Right Arm Blood Pressure: 118/77 Blood Pressure Mean: 90 Blood Pressure Source: Automatic Cuff Medical Screen Scoring (Pre) - Cervical Exam Dilation: 1-3 cm = 1 Membranes: Intact - Uterine Contractions Frequency: N/A - Maternal Vital Signs Maternal Temperature: N/A Maternal Blood Pressure: N/A Signs of Preeclampsia: N/A Maternal Respirations: N/A - Maternal Trauma Maternal Trauma: N/A - Assessment - Baby A Baseline FHR: 150 Heart Rate - NICHD Category: Category I (Normal) = 0 NST: Reactive Position: N/A Station: N/A - Total Score - Baby A Total Score - Baby A: 1 - Total Score - Baby B Total Score - Baby B: 1 - Total Score - Baby C Total Score - Baby C: 1 - Level of Risk - Baby A Level of Risk - Baby A: Low (0-5) - Level of Risk - Baby B Level of Risk - Baby B: Low (0-5) - Level of Risk - Baby C Level of Risk - Baby C: Low (0-5) Physician Notification (Pre) - Physician Notified Physician Notified Date: 07/23/19 Physician Notified Time: 02:00 Physician/Practitioner Notifed:: Dr. Haile Spoke With: Dr. Haile New Order Received: Yes - Notification Comment Comment: Dr. Haile called and given the FFN results. Orders recieved to administer. 12mg dose of celestone and to recheck vag exam. If no change and pt is comfortable to. d/c to home. If pt is uncomfortable pt may stay for obv and will be evaluated by Dr. Haile in the am. Disposition - Disposition OB Disposition: Discharge to home Discharge Date: 07/23/19 Discharge Time: 02:27 I agree with the RN Medical Screening Exam: Yes Risk & Benefit of care provided described in d/c instruction: Yes Diagnosis: FALSE LABOR BEFORE 37 COMPLETED WEEKS OF GEST, THIRD TRI
== END 2019-07-23 02:27 | disposition home or self-care (01) ==
LOC: FBPOP 00:40
PROVIDERS: ATTEND Obstetrics & Gynecology
DX: O47.03 False labor before 37 completed weeks of gestation, third trimester (principal); Z3A.34 34 weeks gestation of pregnancy
CPT/HCPCS: 59025; 96372; 82731; G0463; J0702; 99214

== ENCOUNTER 2019-07-23 12:55 | Outpatient (CLI) | payer OTHER ==
[2019-07-23 13:21] LABS: Glucose,Whole Blood 162 mg/dL (75-99)
[2019-07-23 15:53] VITALS: BP 132/67; PULSE 111; RESP 16; TEMP 97.6
--- NOTE | 2019-07-31 10:53 | P.MSEPDOC ---
Presenting Problems - Arrival Data Date of Arrival on Unit: 07/23/19 Time of Arrival on Unit: 12:55 Mode of Transport: Ambulatory - Complaint OB-Reason for Admission/Chief Complaint: Possible Onset of Labor Medical History - Information : 6 Para: 3 Term: 1 : 2 Abortions: Spontaneous or Elective: 2 Number of Living Children: 3 - Gestational Age Gestational Age by ARCELIA (wks/days): 26 Weeks and 3 Days - History Complications: GDM Review of Systems - Review of Systems Constitutional: No problems Breast: No problems ENT: No problems Cardiovascular: No problems Respiratory: No problems Gastrointestinal: No problems Genitourinary: No problems Musculoskeletal: No problems Neurological: No problems Skin: No problems Vital Signs - Temperature Temperature: 97.6 F Temperature Source: Temporal Artery Scan - Pulse Pulse Oximetery Pulse Rate: 111 Pulse Assessment Method: Pulse Oximetry - Respirations Respiratory Rate: 16 - Blood Pressure Right Arm Sitting Blood Pressure: 132/67 Blood Pressure Mean: 88 Blood Pressure Source: Automatic Cuff Medical Screen Scoring (Pre) - Cervical Exam Dilation: 4-7 cm = 2 Effacement: More than 50% = 2 Membranes: Intact - Uterine Contractions Frequency: N/A Duration: N/A Intensity: N/A - Maternal Vital Signs Maternal Temperature: N/A Maternal Blood Pressure: N/A Signs of Preeclampsia: N/A Maternal Respirations: N/A - Maternal Trauma Maternal Trauma: N/A - Assessment - Baby A Baseline FHR: 140 Position: N/A Station: N/A - Total Score - Baby A Total Score - Baby A: 4 - Total Score - Baby B Total Score - Baby B: 4 - Total Score - Baby C Total Score - Baby C: 4 - Level of Risk - Baby A Level of Risk - Baby A: Low (0-5) - Level of Risk - Baby B Level of Risk - Baby B: Low (0-5) - Level of Risk - Baby C Level of Risk - Baby C: Low (0-5) Physician Notification (Pre) - Physician Notified Physician Notified Date: 07/23/19 Physician Notified Time: 13:30 Physician/Practitioner Notifed:: Dr Rogers Medical Screen Scoring (Post) - Cervical Exam Dilation: 4-7 cm = 2 Effacement: More than 50% = 2 Membranes: Intact - Uterine Contractions Frequency: N/A Duration: N/A Intensity: N/A - Maternal Vital Signs Maternal Temperature: N/A Maternal Blood Pressure: N/A Signs of Preeclampsia: N/A Maternal Respirations: N/A - Maternal Trauma Maternal Trauma: N/A - Assessment - Baby A Heart Rate: 140 Heart Rate - NICHD Category: Category I (Normal) = 0 NST: Reactive Position: N/A Station: N/A - Total Score Total Score - Baby A: 4 Total Score - Baby B: 4 Total Score - Baby C: 4 - Post Treatment Level of Risk Post Treatment Level of Risk - Baby A: Low (0-5) Post Treatment Level of Risk - Baby B: Low (0-5) Post Treatment Level of Risk - Baby C: Low (0-5) Physician Notification (Post) - Physician Notified Physician Notified Date: 07/23/19 Physician Notified Time: 13:30 Physician/Practitioner Notified:: Dr Rogers - Notification Comment Comment: If no cervical change after recheck may discharge home with instructions to return between [id number] 07/23/19 for 2nd Celestone injection. Disposition - Disposition OB Disposition: Triage Discharge Date: 07/23/19 Discharge Time: 14:30 I agree with the RN Medical Screening Exam: Yes Risk & Benefit of care provided described in d/c instruction: Yes Diagnosis: FALSE LABOR BEFORE 37 COMPLETED WEEKS OF GEST, THIRD TRI
== END 2019-07-23 14:30 | disposition home or self-care (01) ==
LOC: FBPOP 12:55
PROVIDERS: ATTEND Obstetrics & Gynecology
DX: O47.03 False labor before 37 completed weeks of gestation, third trimester (principal); Z3A.26 26 weeks gestation of pregnancy
CPT/HCPCS: 59025; G0463; 99213

== ENCOUNTER 2019-07-23 20:17 | Outpatient (CLI) | payer OTHER ==
[2019-07-24 00:38] VITALS: BP 130/72; PULSE 90; RESP 16; TEMP 98.4
--- NOTE | 2019-07-30 08:35 | P.MSEPDOC ---
Presenting Problems - Arrival Data Date of Arrival on Unit: 07/24/19 Time of Arrival on Unit: 20:17 Mode of Transport: Ambulatory - Complaint OB-Reason for Admission/Chief Complaint: Possible Onset of Labor Comment: pt presents to triage ambulatory complaints of contractions regular and more painful than when she was here earlier today. discharged today at 1430for ctx complaints. vag exam then 4 cm 70% -2 pt states has some bloody discharge, thinks is leaking amniotic fluid, states contractions make it so not feeling baby move the same Medical History - Information : 6 Para: 3 Term: 0 : 3 Abortions: Spontaneous or Elective: 2 Number of Living Children: 3 - Gestational Age Gestational Age by ARCELIA (wks/days): 34 Weeks and 6 Days Review of Systems - Review of Systems Constitutional: No problems Breast: No problems ENT: No problems Cardiovascular: No problems Respiratory: No problems Gastrointestinal: No problems Genitourinary: No problems Musculoskeletal: No problems Neurological: No problems Skin: No problems Vital Signs - Temperature Temperature: 98.4 F Temperature Source: Oral - Pulse Right Pulse Rate: 90 Pulse Assessment Method: Automatic Cuff - Respirations Respiratory Rate: 16 Oxygen Delivery Method: Room Air O2 Sat by Pulse Oximetry: 98 - Blood Pressure Right Arm Blood Pressure: 130/72 Blood Pressure Mean: 91 Blood Pressure Source: Automatic Cuff Medical Screen Scoring (Pre) - Cervical Exam Dilation: 4-7 cm = 2 Membranes: Intact - Uterine Contractions Frequency: N/A Duration: N/A Intensity: N/A - Maternal Vital Signs Maternal Temperature: N/A Maternal Blood Pressure: N/A Signs of Preeclampsia: N/A Maternal Respirations: N/A - Maternal Trauma Maternal Trauma: N/A - Assessment - Baby A Baseline FHR: 140 Heart Rate - NICHD Category: Category I (Normal) = 0 NST: Reactive Position: N/A Station: N/A - Total Score - Baby A Total Score - Baby A: 2 - Total Score - Baby B Total Score - Baby B: 2 - Total Score - Baby C Total Score - Baby C: 2 - Level of Risk - Baby A Level of Risk - Baby A: Low (0-5) - Level of Risk - Baby B Level of Risk - Baby B: Low (0-5) - Level of Risk - Baby C Level of Risk - Baby C: Low (0-5) Physician Notification (Pre) - Physician Notified Physician Notified Date: 07/24/19 Physician Notified Time: 21:00 Physician/Practitioner Notifed:: Dr Rogers New Order Received: Yes - Notification Comment Comment: Dr Rogers updated with Cervical exam unchanged from eariler today, amnisure negative, nst reactive. fht cat 1. no contractions per palpation or on toco. Orders to discharge pt with reassuance she is not in labor at this time since cervix is not changing and no contractions are noted. encourage pt to keep next scheduled appt and may return with worsening of symptoms Disposition - Disposition Discharge Date: 07/23/19 Discharge Time: 21:10 I agree with the RN Medical Screening Exam: Yes Risk & Benefit of care provided described in d/c instruction: Yes Diagnosis: RELATED CONDITIONS, UNSPECIFIED, THIRD TRIMESTER
== END 2019-07-23 21:10 | disposition home or self-care (01) ==
LOC: FBPOP 20:17
PROVIDERS: ATTEND Obstetrics & Gynecology
DX: O26.93 Pregnancy related conditions, unspecified, third trimester (principal); Z3A.34 34 weeks gestation of pregnancy
CPT/HCPCS: 59025; G0463; 99213

== ENCOUNTER 2019-07-24 06:45 | Outpatient (CLI) | payer OTHER ==
[2019-07-24 06:54] VITALS: PULSE 106; RESP 16; TEMP 96.6
[2019-07-24] MEDS ORDERED: BETAMET ACET-BETAMETH SOD PHOS 6 MG/ML VIAL IM SCH (07:00)
== END 2019-07-24 07:09 | disposition home or self-care (01) ==
LOC: FBPOP 06:45
PROVIDERS: ATTEND Obstetrics & Gynecology
DX: O60.00 Preterm labor without delivery, unspecified trimester (principal)
CPT/HCPCS: 96372; J0702

== ENCOUNTER 2019-07-25 10:05 | Outpatient (CLI) | payer OTHER ==
[2019-07-25 10:32] LABS: Glucose,Whole Blood 125 mg/dL (75-99)
[2019-07-25 10:49] VITALS: BP 130/69; PULSE 100; RESP 18; TEMP 98.3
--- NOTE | 2019-08-12 08:13 | P.MSEPDOC ---
Presenting Problems - Arrival Data Date of Arrival on Unit: 07/25/19 Time of Arrival on Unit: 10:05 Mode of Transport: Ambulatory - Complaint OB-Reason for Admission/Chief Complaint: Possible Onset of Labor Comment: irregular contractions, ?spotting in the bathtub, pressure Medical History - Information : 6 Para: 3 Number of Living Children: 3 - Gestational Age Gestational Age by ARCELIA (wks/days): 35 Weeks and 0 Days - History Complications: GDM, Prior Comment: second dose celestone given yesterday 07/24. blood sugar 125 currently. pt is diet controlled and states she checks her sugars 4x daily Review of Systems - Review of Systems Constitutional: No problems Breast: No problems ENT: No problems Cardiovascular: No problems Respiratory: No problems Gastrointestinal: No problems Genitourinary: No problems Musculoskeletal: No problems Neurological: No problems Skin: No problems Vital Signs - Temperature Temperature: 98.3 F Temperature Source: Oral - Pulse Right Sitting Brachial Pulse Rate: 100 Pulse Assessment Method: Auscultation - Respirations Respiratory Rate: 18 Oxygen Delivery Method: Room Air O2 Sat by Pulse Oximetry: 96 - Blood Pressure Right Arm Sitting Blood Pressure: 130/69 Blood Pressure Mean: 89 Blood Pressure Source: Automatic Cuff Medical Screen Scoring (Pre) - Cervical Exam Dilation: 4-7 cm = 2 Effacement: More than 50% = 2 Membranes: Intact - Uterine Contractions Frequency: > 5 minutes apart = 1 Duration: N/A Intensity: N/A - Maternal Vital Signs Maternal Temperature: N/A Maternal Blood Pressure: N/A Signs of Preeclampsia: N/A Maternal Respirations: N/A - Maternal Trauma Maternal Trauma: N/A - Assessment - Baby A Baseline FHR: 150 Heart Rate - NICHD Category: Category I (Normal) = 0 NST: Reactive Position: N/A - Total Score - Baby A Total Score - Baby A: 5 - Total Score - Baby B Total Score - Baby B: 5 - Total Score - Baby C Total Score - Baby C: 5 - Level of Risk - Baby A Level of Risk - Baby A: Low (0-5) - Level of Risk - Baby B Level of Risk - Baby B: Low (0-5) - Level of Risk - Baby C Level of Risk - Baby C: Low (0-5) Physician Notification (Pre) - Physician Notified Physician Notified Date: 07/25/19 Physician Notified Time: 10:30 Physician/Practitioner Notifed:: Dr Telles Spoke With: Dr Telles New Order Received: Yes - Notification Comment Comment: cervix remains 4cm. NST reactive. contractions irregular. dc home. pt to follow up with Dr Haile as scheduled. Disposition - Disposition OB Disposition: Discharge to home Discharge Date: 07/25/19 Discharge Time: 10:35 I agree with the RN Medical Screening Exam: Yes Risk & Benefit of care provided described in d/c instruction: Yes Diagnosis: FALSE LABOR BEFORE 37 COMPLETED WEEKS OF GEST, THIRD TRI
== END 2019-07-25 10:35 | disposition home or self-care (01) ==
LOC: FBPOP 10:05
PROVIDERS: ATTEND Obstetrics & Gynecology
DX: O47.03 False labor before 37 completed weeks of gestation, third trimester (principal); Z3A.35 35 weeks gestation of pregnancy
CPT/HCPCS: 59025; G0463; 99213

== ENCOUNTER 2019-07-29 16:35 | Outpatient (CLI) | payer OTHER ==
[2019-07-29 17:45] LABS: Basophils % (A) 0 %; Eosinophils # (A) 0.1 k/uL (0-0.7); Eosinophils % (A) 1 %; Hypochromasia Marked; Lymphocytes # (A) 1.6 k/uL (1.0-4.8); Lymphocytes % (A) 13 %; MCH 26.3 pg (25.0-35.0); MCHC 31.3 g/dL (31.0-37.0); Mean Platelet Volume 8.4; Monocytes # (A) 0.6 k/uL (0-1.0); Monocytes % (A) 5 %; Neutrophils # (A) 9.5 k/uL (1.3-7.7); Neutrophils % (A) 79 %; Platelet Count 183 k/uL (150-450); Poikilocytosis Slight; RBC 3.81 m/uL (3.80-5.40); RDW 15.4 % (11.5-15.5)
[2019-07-29 19:02] VITALS: BP 127/76; PULSE 122; RESP 18; TEMP 98.7
--- NOTE | 2019-08-01 12:04 | P.MSEPDOC ---
Presenting Problems - Arrival Data Date of Arrival on Unit: 07/29/19 Time of Arrival on Unit: 16:35 Mode of Transport: Ambulatory - Complaint OB-Reason for Admission/Chief Complaint: Observation/Evaluation Comment: pt here from office with order for cbc and plse ox monitoring for shorntess of. breath in office. Dr Haile in department at arrival and states to call him directly. with results. Medical History - Information : 6 Para: 3 Term: 1 : 2 Abortions: Spontaneous or Elective: 2 Number of Living Children: 3 - Gestational Age Gestational Age by ARCELIA (wks/days): 35 Weeks and 4 Days - History Complications: Prior Comment: pt states has pain in back and cramping in abd rated at 7/10. states is. "getting used to it" adn that it is not any different than it has been the last couple. weeks. pt has been to triage multiple times for contractions and pain Review of Systems - Review of Systems Constitutional: No problems Breast: No problems ENT: No problems Cardiovascular: No problems Respiratory: No problems Gastrointestinal: No problems Genitourinary: No problems Musculoskeletal: No problems Neurological: No problems Skin: No problems Vital Signs - Temperature Temperature: 98.7 F Temperature Source: Oral - Pulse Right Pulse Rate: 122 Pulse Assessment Method: Pulse Oximetry - Respirations Respiratory Rate: 18 Oxygen Delivery Method: Room Air O2 Sat by Pulse Oximetry: 97 - Blood Pressure Right Arm Blood Pressure: 127/76 Blood Pressure Mean: 93 Blood Pressure Source: Automatic Cuff Medical Screen Scoring (Pre) - Cervical Exam Dilation: Exam Deferred Effacement: Exam Deferred Membranes: Intact - Uterine Contractions Frequency: N/A - Maternal Vital Signs Maternal Temperature: N/A Maternal Blood Pressure: N/A Signs of Preeclampsia: N/A Maternal Respirations: N/A - Maternal Trauma Maternal Trauma: N/A - Assessment - Baby A Baseline FHR: 155 Heart Rate - NICHD Category: Category I (Normal) = 0 Position: N/A Station: N/A - Total Score - Baby A Total Score - Baby A: 0 - Total Score - Baby B Total Score - Baby B: 0 - Total Score - Baby C Total Score - Baby C: 0 - Level of Risk - Baby A Level of Risk - Baby A: Low (0-5) - Level of Risk - Baby B Level of Risk - Baby B: Low (0-5) - Level of Risk - Baby C Level of Risk - Baby C: Low (0-5) Physician Notification (Pre) - Physician Notified Physician Notified Date: 07/29/19 Physician Notified Time: 17:55 Physician/Practitioner Notifed:: Dr Haile Spoke With: Dr Haile New Order Received: Yes (discharge) - Notification Comment Comment: : Mic updated with cbc results including hgb 10. status cat 1, resp non. labored. lungs cta bilat. pulse ox 95 -97% while pt talking, no shortness of breath. observed. resp easy non labored. maternal heart rate elevated from her nourm at 105-125. order for discharge received. Disposition - Disposition OB Disposition: Discharge to home Discharge Date: 07/29/19 Discharge Time: 18:00 I agree with the RN Medical Screening Exam: Yes Risk & Benefit of care provided described in d/c instruction: Yes Diagnosis: RELATED CONDITIONS, UNSPECIFIED, THIRD TRIMESTER
== END 2019-07-29 18:00 | disposition home or self-care (01) ==
LOC: FBPOP 16:35
PROVIDERS: ATTEND Obstetrics & Gynecology
DX: O26.93 Pregnancy related conditions, unspecified, third trimester (principal); Z3A.35 35 weeks gestation of pregnancy
CPT/HCPCS: 85025

== ENCOUNTER 2019-07-30 20:36 | Outpatient (CLI) | payer OTHER ==
[2019-07-30 22:23] LABS: Amorphous Sediment,Urine Rare /hpf; Appearance,Urine Cloudy (Clear); Bacteria,Urine Few /hpf; Bilirubin,Urine Negative (Negative); Blood,Urine Negative (Negative); Color,Urine Yellow; Glucose,Urine (UA) Negative (Negative); Ketones,Urine Negative (Negative); Leukocyte Esterase,Urine Large (Negative); Mucus,Urine Rare /hpf; Nitrite,Urine Negative (Negative); Protein,Urine Negative (Negative); Specific Gravity,Urine 1.012 (1.001-1.035); Squamous Epithelial Cell,Urine 2 /hpf (0-4); Urobilinogen,Urine <2.0 mg/dL (<2.0); WBC,Urine 3 /hpf (0-5)
[2019-07-30 23:15] VITALS: BP 138/78; PULSE 106; RESP 18; TEMP 96.2
--- NOTE | 2019-07-31 08:23 | P.MSEPDOC ---
Presenting Problems - Arrival Data Date of Arrival on Unit: 07/30/19 Time of Arrival on Unit: 20:36 Mode of Transport: Wheelchair - Complaint OB-Reason for Admission/Chief Complaint: Possible Onset of Labor Comment: pt presents with c/o contractions since 1800 every couple of minutes Medical History - Information : 6 Para: 3 Term: 1 : 2 Abortions: Spontaneous or Elective: 2 Number of Living Children: 3 - Gestational Age Gestational Age by ARCELIA (wks/days): 35 Weeks and 5 Days Review of Systems - Review of Systems Constitutional: No problems Breast: No problems ENT: No problems Cardiovascular: No problems Respiratory: No problems Gastrointestinal: No problems Genitourinary: No problems Musculoskeletal: No problems Neurological: No problems Skin: No problems Vital Signs - Temperature Temperature: 96.2 F Temperature Source: Temporal Artery Scan - Pulse Right Brachial Pulse Rate: 106 Pulse Assessment Method: Automatic Cuff - Respirations Respiratory Rate: 18 Oxygen Delivery Method: Room Air O2 Sat by Pulse Oximetry: 96 - Blood Pressure Right Arm Blood Pressure: 138/78 Blood Pressure Mean: 98 Blood Pressure Source: Automatic Cuff Medical Screen Scoring (Pre) - Cervical Exam Dilation: 1-3 cm = 1 Effacement: More than 50% = 2 Membranes: Intact - Uterine Contractions Frequency: N/A, > 5 minutes apart = 1 Intensity: N/A - Maternal Vital Signs Maternal Temperature: N/A Maternal Blood Pressure: N/A Signs of Preeclampsia: N/A Maternal Respirations: N/A - Maternal Trauma Maternal Trauma: N/A - Assessment - Baby A Baseline FHR: 145 Heart Rate - NICHD Category: Category I (Normal) = 0 NST: Reactive Position: N/A Station: N/A - Total Score - Baby A Total Score - Baby A: 4 - Total Score - Baby B Total Score - Baby B: 4 - Total Score - Baby C Total Score - Baby C: 4 - Level of Risk - Baby A Level of Risk - Baby A: Low (0-5) - Level of Risk - Baby B Level of Risk - Baby B: Low (0-5) - Level of Risk - Baby C Level of Risk - Baby C: Low (0-5) Physician Notification (Pre) - Physician Notified Physician Notified Date: 07/30/19 Physician Notified Time: 22:24 Physician/Practitioner Notifed:: Dr. Head Spoke With: Dr. Head New Order Received: Yes - Notification Comment Comment: discharge pt home, follow up at next scheduled appt on aug 03 Disposition - Disposition OB Disposition: Discharge to home Discharge Date: 07/30/19 Discharge Time: 22:35 I agree with the RN Medical Screening Exam: Yes Risk & Benefit of care provided described in d/c instruction: Yes Diagnosis: FALSE LABOR BEFORE 37 COMPLETED WEEKS OF GEST, THIRD TRI (No cervical change from previous cervical exam earlier this week. No regular contractions. FHT are reactive. Advised to return if contractions become regular, decreased movement, leaking of fluid, etc. No evidence of active labor at this time. No evidence of maternal/ compromise. Followup with Dr. Haile as scheduled.)
== END 2019-07-30 22:34 | disposition home or self-care (01) ==
LOC: FBPOP 20:36
PROVIDERS: ATTEND Obstetrics & Gynecology
DX: O47.03 False labor before 37 completed weeks of gestation, third trimester (principal); Z3A.35 35 weeks gestation of pregnancy
CPT/HCPCS: 59025; 81001; G0463; 99213

== ENCOUNTER 2019-08-05 15:19 | Outpatient (CLI) | payer OTHER ==
[2019-08-05 16:54] VITALS: BP 123/77; PULSE 108; RESP 18; TEMP 96.6
--- NOTE | 2019-09-01 08:21 | P.MSEPDOC ---
Presenting Problems - Arrival Data Date of Arrival on Unit: 08/05/19 Time of Arrival on Unit: 15:20 Mode of Transport: Ambulatory - Complaint OB-Reason for Admission/Chief Complaint: Possible Onset of Labor Comment: sent from office for monitoring and cervical check per Dr Haile Medical History - Information : 6 Para: 3 Number of Living Children: 3 - Gestational Age Gestational Age by ARCELIA (wks/days): 36 Weeks and 4 Days Review of Systems - Review of Systems Constitutional: No problems Breast: No problems ENT: No problems Cardiovascular: No problems Respiratory: No problems Gastrointestinal: No problems Genitourinary: No problems Musculoskeletal: No problems Neurological: No problems Skin: No problems Vital Signs - Temperature Temperature: 96.6 F Temperature Source: Temporal Artery Scan - Pulse Right Sitting Brachial Pulse Rate: 108 Pulse Assessment Method: Automatic Cuff - Respirations Respiratory Rate: 18 Oxygen Delivery Method: Room Air O2 Sat by Pulse Oximetry: 96 - Blood Pressure Right Arm Sitting Blood Pressure: 123/77 Blood Pressure Mean: 92 Blood Pressure Source: Automatic Cuff Medical Screen Scoring (Pre) - Cervical Exam Dilation: 4-7 cm = 2 Effacement: More than 50% = 2 Membranes: Intact - Uterine Contractions Frequency: N/A Duration: N/A Intensity: N/A - Maternal Vital Signs Maternal Temperature: N/A Maternal Blood Pressure: N/A Signs of Preeclampsia: N/A Maternal Respirations: N/A - Maternal Trauma Maternal Trauma: N/A - Assessment - Baby A Baseline FHR: 145 Heart Rate - NICHD Category: Category I (Normal) = 0 NST: Reactive Position: N/A - Total Score - Baby A Total Score - Baby A: 4 - Total Score - Baby B Total Score - Baby B: 4 - Total Score - Baby C Total Score - Baby C: 4 - Level of Risk - Baby A Level of Risk - Baby A: Low (0-5) - Level of Risk - Baby B Level of Risk - Baby B: Low (0-5) - Level of Risk - Baby C Level of Risk - Baby C: Low (0-5) - Pain Assessment Pain Location and Character: Abdomen Pain Scale Used: Numeric (1 - 10) Pain Intensity: 6 Pain Management Goal: 3 Pain Description: Cramping Pain Radiation Location: none Pain Frequency: Constant Pain Duration: 1 Pain Duration Units: Months Pain Behavior: None Exhibited Effects of Pain: nnone Pain Aggravating Factors: None Physician Notification (Pre) - Physician Notified Physician Notified Date: 08/05/19 Physician Notified Time: 16:53 Physician/Practitioner Notifed:: dr haile Spoke With: dr haile New Order Received: Yes - Notification Comment Comment: dc home. pt remains 5 cm. pt to return with continued or increased symptoms. Disposition - Disposition OB Disposition: Discharge to home Discharge Date: 08/05/19 Discharge Time: 16:53 I agree with the RN Medical Screening Exam: Yes Risk & Benefit of care provided described in d/c instruction: Yes Diagnosis: FALSE LABOR BEFORE 37 COMPLETED WEEKS OF GEST, THIRD TRI
== END 2019-08-05 16:54 | disposition home or self-care (01) ==
LOC: FBPOP 15:19
PROVIDERS: ATTEND Obstetrics & Gynecology
DX: O47.03 False labor before 37 completed weeks of gestation, third trimester (principal); Z3A.36 36 weeks gestation of pregnancy
CPT/HCPCS: 59025; G0463; 99213

== ENCOUNTER 2019-08-05 22:12 | Inpatient (IN) | payer OTHER ==
[2019-08-05] MEDS ORDERED: ONDANSETRON 4 MG/2 ML VIAL IVP STA (22:22)
[2019-08-05] MEDS: LACTATED RINGERS 1,000 ML IV SCH ×2 (22:30→23:46)
[2019-08-06 00:10] VITALS: BMI 34.5
[2019-08-06] MEDS ORDERED: CARBOPROST TROMETHAMINE 250 MCG/ML 1 ML AMP IM PRN (09:24)
[2019-08-06] MEDS ORDERED: LIDOCAINE 0.5% (PF) 5 MG/ML (50 ML SDV) SQ PRN (09:24)
[2019-08-06] MEDS ORDERED: AMPICILLIN 2,000 MG in SODIUM CHLORIDE 0.9% 100 ML IVPB STA (09:24)
[2019-08-06] MEDS ORDERED: METHYLERGONOVINE 0.2 MG/ML 1 ML AMP IM PRN (09:24)
[2019-08-06] MEDS ORDERED: OXYTOCIN 10 UNIT/ML 1 ML VIAL IM PRN (09:24)
[2019-08-06] MEDS ORDERED: TERBUTALINE 1 MG/ML VIAL SQ PRN (09:24)
[2019-08-06] MEDS ORDERED: OXYTOCIN 30 UNITS/500 ML NS 30 UNIT in SALINE 1 500ML.BAG IV SCH (09:30)
[2019-08-06 09:54] LABS: Basophils % (A) 0 %; Eosinophils # (A) 0.1 k/uL (0-0.7); Eosinophils % (A) 1 %; HCT 32.4 % (34.0-46.0); HGB 10.2 gm/dL (11.4-16.0); Hypochromasia Marked; Lymphocytes # (A) 1.1 k/uL (1.0-4.8); Lymphocytes % (A) 11 %; MCH 26.7 pg (25.0-35.0); MCHC 31.4 g/dL (31.0-37.0); Mean Platelet Volume 9.7; Monocytes # (A) 0.5 k/uL (0-1.0); Monocytes % (A) 5 %; Neutrophils # (A) 8.3 k/uL (1.3-7.7); Neutrophils % (A) 82 %; Platelet Count 133 k/uL (150-450); Poikilocytosis Slight; RBC 3.81 m/uL (3.80-5.40); RDW 15.8 % (11.5-15.5); WBC 10.1 k/uL (3.8-10.6)
[2019-08-06] MEDS: LACTATED RINGERS 1,000 ML IV SCH ×10 (09:57→18:22)
[2019-08-06] MEDS: ONDANSETRON 4 MG/2 ML VIAL IVP PRN ×2 (11:16→19:02)
[2019-08-06] MEDS ORDERED: AMPICILLIN 1,000 MG in SODIUM CHLORIDE 0.9% 50 ML IVPB SCH (13:30)
[2019-08-06] MEDS ORDERED: BUTORPHANOL 1 MG/ML 1 ML VIAL IV PRN (14:30)
[2019-08-06] MEDS ORDERED: diphenhydrAMINE 25 MG CAP PO PRN (16:01)
[2019-08-06] MEDS ORDERED: diphenhydrAMINE 50 MG/ML 1 ML VIAL IVP PRN ×2 (16:01)
[2019-08-06] MEDS ORDERED: SIMETHICONE 80 MG CHEWABLE PO PRN (16:01)
[2019-08-06] MEDS ORDERED: ZOLPIDEM 5 MG TAB PO PRN (16:01)
[2019-08-06] MEDS ORDERED: LANOLIN CREAM 5 GM TUBE TOPICAL PRN (16:01)
[2019-08-06] MEDS ORDERED: WITCH HAZEL 1 EACH MED..PAD TOPICAL PRN (16:01)
[2019-08-06] MEDS ORDERED: BENZOCAINE/MENTHOL SPRAY 1 GM/SPRAY AEROSOL TOPICAL PRN (16:01)
[2019-08-06] MEDS ORDERED: HYDROCORTISONE 2.5% RECTAL CREAM 30 GM TUBE RECTAL PRN (16:01)
[2019-08-06] MEDS ORDERED: diphenhydrAMINE 50 MG CAP PO PRN (16:01)
[2019-08-06] MEDS: IBUPROFEN 600 MG TAB PO PRN (16:12)
[2019-08-06] MEDS ORDERED: OXYTOCIN 20 UNITS/1000 ML NS 1,000 ML IV SCH (16:15)
[2019-08-07] MEDS: IBUPROFEN 600 MG TAB PO PRN (00:42)
[2019-08-07] MEDS: SENNOSIDES-DOCUSATE SODIUM 1 EACH TAB PO SCH ×3 (02:08→19:54)
--- NOTE | 2019-08-07 06:40 | P.PROBDLV ---
Vaginal Delivery Note - . Vaginal Delivery Note: 23-year-old presented with advanced cervical dilation at 36 weeks and 5 days. She continued to make cervical change without contractions to about 6-1/2 cm, 70% effaced, and -2 station. Pitocin augmentation was started and amniotomy was performed at 1332. Clear fluid noted. Her cervix was completely dilated at 1452. She pushed, and delivered a viable female infant at 1453. I did miss the delivery and walked in with the baby in the warmer. I did deliver the placenta 1502 spontaneously intact with a three-vessel cord. Baby was 7 pounds 2.8 ounces and Apgars were 8, 9. Examined the cervix vagina and perineum, first- degree midline laceration repaired with 3-0 Vicryl. Estimated blood loss 300 mL. Mother and baby in stable condition.
--- NOTE | 2019-08-07 08:06 | P.PNOBGVD ---
Subjective - Subjective Principal diagnosis: day 1 Interval history: Overall patient doing very well. She is ambulating, voiding and tolerating her diet. She voices no complaints. Baby is still a little early and will therefore be kept until tomorrow. No other problems or concerns at this time. Plan for discharge to home tomorrow Patient reports: Reports appetite normal, Reports voiding normally, Reports pain well controlled, Reports ambulating normally : doing well Objective - Latest Vital Signs Latest vital signs: Vital Signs Temp Pulse Resp BP Pulse Ox 08/07/19 00:00 98.7 F 97 14 126/85 95 08/06/19 20:00 98.7 F 89 14 115/75 97 08/06/19 16:59 97.6 F 81 18 124/73 96 08/06/19 16:42 84 18 130/71 08/06/19 16:12 97.1 F L 85 18 118/65 08/06/19 15:57 96.8 F L 84 18 127/72 08/06/19 15:42 97.5 F L 84 18 130/73 08/06/19 15:27 98.1 F 86 18 130/66 08/06/19 15:12 96.9 F L 82 18 134/78 Intake and Output 08/06/19 08/07/19 08/07/19 22:59 06:59 14:59 Other: Voiding Method Toilet # Voids 1 1 - Exam Lungs: bilateral: normal Chest: Normal S1, Normal S2 Extremities: Present: normal Abdomen: Present: normal appearance, soft Uterus: Present: normal, firm - Labs Labs: Abnormal Lab Results - Last 24 Hours (Table) 08/05/19 Range/Units 22:30 Hgb 10.2 L (11.4-16.0) gm/dL Hct 32.4 L (34.0-46.0) % RDW 15.8 H (11.5-15.5) % Plt Count 133 L (150-450) k/uL Neutrophils # 8.3 H (1.3-7.7) k/uL
[2019-08-07 08:28] LABS: Anisocytosis Slight; Basophils % (A) 0 %; Eosinophils # (A) 0.1 k/uL (0-0.7); Eosinophils % (A) 2 %; HGB 9.2 gm/dL (11.4-16.0); Hypochromasia Moderate; Lymphocytes # (A) 1.4 k/uL (1.0-4.8); Lymphocytes % (A) 17 %; MCH 26.5 pg (25.0-35.0); MCHC 31.6 g/dL (31.0-37.0); MCV 83.7 fL (80.0-100.0); Mean Platelet Volume 9.1; Monocytes # (A) 0.5 k/uL (0-1.0); Monocytes % (A) 6 %; Neutrophils # (A) 5.6 k/uL (1.3-7.7); Neutrophils % (A) 72 %; Platelet Count 133 k/uL (150-450); Poikilocytosis Slight; RBC 3.47 m/uL (3.80-5.40); RDW 16.7 % (11.5-15.5); WBC 7.8 k/uL (3.8-10.6)
[2019-08-07] MEDS: ACETAMINOPHEN TAB 325 MG TAB PO PRN ×2 (19:44→19:45)
--- NOTE | 2019-08-08 07:06 | P.PNOBGVD ---
Subjective - Subjective Patient reports: Reports appetite normal, Reports voiding normally, Reports pain well controlled, Reports ambulating normally : doing well Objective - Latest Vital Signs Latest vital signs: Vital Signs Temp Pulse Resp BP Pulse Ox 08/08/19 00:00 97.8 F 86 18 127/87 95 08/07/19 16:00 98.8 F 91 18 115/63 97 08/07/19 08:00 98.2 F 101 H 18 118/74 95 - Exam Lungs: bilateral: normal Chest: Normal S1, Normal S2 Extremities: Present: normal Abdomen: Present: normal appearance, soft Uterus: Present: normal, firm - Labs Labs: Abnormal Lab Results - Last 24 Hours (Table) 08/07/19 Range/Units 08:11 RBC 3.47 L (3.80-5.40) m/uL Hgb 9.2 L (11.4-16.0) gm/dL Hct 29.0 L (34.0-46.0) % RDW 16.7 H (11.5-15.5) % Plt Count 133 L (150-450) k/uL Assessment and Plan Assessment: day #2. Patient is resting without complaints. Vital signs are stable she is afebrile. Uterus is firm nontender and she is having normal lochia. My impression this is a normal course. Plan is to continue routine care discharge home later today. (1) Normal vaginal delivery Current Visit: Yes Status: Acute Code(s): O80 - ENCOUNTER FOR FULL-TERM UNCOMPLICATED DELIVERY SNOMED Code(s): 10538222
--- NOTE | 2019-08-08 07:09 | P.DS ---
Providers Date of admission: 08/06/19 00:23 Expected date of discharge: 08/08/19 Attending physician: Yaron Haile Primary care physician: Stated None - Discharge Diagnosis(es) (1) Normal vaginal delivery Current Visit: Yes Status: Acute Hospital Course: Please see dictated H&P per Dr. Haile on this patient's admission. Brief summary this is a 23-year-old 6 para 3 female 36-5/7 weeks gestation admitted to labor and delivery in active labor. Patient goes on to have a vaginal delivery viable female , please see dictated delivery note per Dr. Telles. On day #2 patient's felt be stable for discharge home follow up with Dr. Haile in 6 weeks. Procedures: Normal spontaneous vaginal delivery Patient Condition at Discharge: Good Plan - Discharge Summary New Discharge Prescriptions: New Ibuprofen [Motrin] 600 mg PO Q6HR PRN #30 tab PRN Reason: Pain No Action [id number] Acid [-U Capsule (formulary)] 1 cap PO DAILY Folic Acid 1 mg PO DAILY Aspirin [[place] Aspirin EC] 81 mg PO DAILY metFORMIN HCL 500 mg PO AC-BID Discharge Medication List Aspirin [[place] Aspirin EC] 81 mg PO DAILY 02/23/19 [History] Folic Acid 1 mg PO DAILY 02/23/19 [History] [id number] Acid [-U Capsule (formulary)] 1 cap PO DAILY 02/23/19 [History] metFORMIN HCL 500 mg PO AC-BID 07/29/19 [History] Ibuprofen [Motrin] 600 mg PO Q6HR PRN #30 tab 08/07/19 [Rx] Follow up Appointment(s)/Referral(s): Yaron Haile DO [Doctor of Osteopathic Medicine] - 6 Weeks Patient Instructions/Handouts: Vaginal Delivery (DC) Activity/Diet/Wound Care/Special Instructions: No heavy lifting, limit stairs and driving, and pelvic rest. If any high temperatures, heavy bleeding, or severe pain call my office Discharge Disposition: HOME SELF-CARE
[2019-08-08 08:24] VITALS: BP 112/63; PULSE 92; RESP 15; TEMP 97.9
[2019-08-08] MEDS: SENNOSIDES-DOCUSATE SODIUM 1 EACH TAB PO SCH (08:25)
--- NOTE | 2019-08-17 18:30 | P.HPOB ---
History of Present Illness H&P Date: 08/17/19 Chief Complaint: Intrauterine at term Patient arrives in active labor and cervical change. Will admit for labor. Her course has been, complicated by gestational diabetes mellitus for which she saw maternal- medicine has been followed very closely over the latter part of the . She is currently 36 weeks 4 days gestation and other than labor pains is feeling well. She is receiving nonstress tests and biophysical profiles when indicated. Otherwise no other complaints and she is feeling well at this time. On physical exam vital signs are stable and afebrile. Heart regular, lungs clear, extremities without pain. Abdomen soft gravid uterus is noted. heart tones are reactive and showed category 1 tracing. Assessment intrauterine at 36 weeks 4 days gestation. Plan expect spontaneous vaginal delivery. Past Medical History Past Medical History: Seizure Disorder, Thyroid Disorder Additional Past Medical History / Comment(s): cerebral palsy, gullian barre in 2010, multiple miscarriages, History of Any Multi-Drug Resistant Organisms: None Reported Past Surgical History: No Surgical Hx Reported Additional Past Surgical History / Comment(s): no reported hx Past Anesthesia/Blood Transfusion Reactions: No Reported Reaction Additional Past Anesthesia/Blood Transfusion Reaction / Comment(s): FATHER- TAKES LONGER TO WAKE UP WITH ANESTHESIA" Past Psychological History: Anxiety, Bipolar Additional Psychological History / Comment(s): lives with children Smoking Status: Former smoker Additional Past Alcohol Use History / Comment(s): started smoking at Age 15 and quit age 16 ONLY SMOKED 2 CIG PER DAY Past Drug Use History: None Reported - Past Family History Mother Family Medical History: Diabetes Mellitus, Hypertension, Seizure Disorder, Supraventricular Tachycardia (SVT) Additional Family Medical History / Comment(s): SVT Father History Unknown: Yes Medications and Allergies Home Medications Medication Instructions Recorded Confirmed Type Aspirin [[place] Aspirin EC] 81 mg PO DAILY 02/23/19 08/05/19 History Folic Acid 1 mg PO DAILY 02/23/19 08/05/19 History Fhd-[id number]-Pqnrr Acid 1 cap PO DAILY 02/23/19 08/05/19 History [-U Capsule (formulary)] metFORMIN HCL 500 mg PO AC-BID 07/29/19 08/05/19 History Ibuprofen [Motrin] 600 mg PO Q6HR PRN #30 tab 08/07/19 Rx Allergies Allergy/AdvReac Type Severity Reaction Status Date / Time nut - unspecified Allergy Anaphylaxis Verified 08/05/19 22:20 peanut Allergy Anaphylaxis Verified 08/05/19 22:20 Sulfa (Sulfonamide Allergy Rash/Hives Verified 08/05/19 22:20 Antibiotics) tree nut [Nut] Allergy Anaphylaxis Verified 08/05/19 22:20 Exam Osteopathic Statement: *. No significant issues noted on an osteopathic structural exam other than those noted in the History and Physical/Consult. Results Result Diagrams: 08/07/19 08:11
== END 2019-08-08 13:30 | disposition home or self-care (01) | DRG 807 ==
LOC: FBPOP 22:12 → 4FBP 23:26 → OBSVTOIN 08-06 00:23
PROVIDERS: ADMIT Obstetrics & Gynecology; ATTEND Obstetrics & Gynecology
PROC: 10E0XZZ Delivery of Products of Conception, External Approach (ICD-10-PCS; principal; 2019-08-07)
PROC: 0HQ9XZZ Repair Perineum Skin, External Approach (ICD-10-PCS; 2019-08-07)
DX: O70.0 First degree perineal laceration during delivery (principal); Z37.0 Single live birth; Z3A.36 36 weeks gestation of pregnancy
CPT/HCPCS: 59025; 85025; 86850; 86900; 86901; 88307; 96361; 96374; 99214

== ENCOUNTER 2020-01-08 14:06 | Emergency (ER) | payer OTHER ==
[2020-01-08 14:52] LABS: Appearance,Urine Cloudy (Clear); Bacteria,Urine Rare /hpf; Bilirubin,Urine Negative (Negative); Blood,Urine Negative (Negative); Color,Urine Yellow; Glucose,Urine (UA) Negative (Negative); Hyaline Casts,Urine 1 /lpf (0-2); Ketones,Urine Negative (Negative); Leukocyte Esterase,Urine Large (Negative); Mucus,Urine Moderate /hpf; Nitrite,Urine Negative (Negative); Protein,Urine 1+ (Negative); RBC,Urine 2 /hpf (0-5); Specific Gravity,Urine 1.036 (1.001-1.035); Squamous Epithelial Cell,Urine 9 /hpf (0-4); Urobilinogen,Urine <2.0 mg/dL (<2.0); WBC,Urine 14 /hpf (0-5)
[2020-01-08] MEDS ORDERED: SODIUM CHLORIDE 0.9% 1,000 ML IV ONE (15:02)
[2020-01-08] MEDS ORDERED: ONDANSETRON 4 MG/2 ML VIAL IVP STA (15:02)
--- NOTE | 2020-01-08 15:03 | ED ---
General Adult HPI - General Chief complaint: Abdominal Pain Stated complaint: Nausea, Abd Pain Time Seen by Provider: 01/08/20 14:15 Source: patient Mode of arrival: ambulatory Limitations: no limitations - History of Present Illness Initial comments: Patient presents the ED complaining of having diffuse lower abdominal pain for the past 3 days and nausea since yesterday. Patient states that she has an IUD in place, and she states that her LMP was some time last month. Patient denies trauma or injury, fever or chills, headache, focal neuro deficit, chest pain, dyspnea, dizziness, upper abdominal pain, back or flank pain, vomiting, diarrhea or constipation, bloody or melanotic stool, dysuria/urinary frequency/hematuria/urinary symptoms, vaginal bleeding or discharge, or any other symptoms or complaints. - Related Data Home Medications Medication Instructions Recorded Confirmed Aspirin [[place] Aspirin EC] 81 mg PO DAILY 02/23/19 08/05/19 Folic Acid 1 mg PO DAILY 02/23/19 08/05/19 Ygf-Ihlb-Helrc Acid 1 cap PO DAILY 02/23/19 08/05/19 [-U Capsule (formulary)] metFORMIN HCL 500 mg PO AC-BID 07/29/19 08/05/19 Previous Rx's Medication Instructions Recorded Ibuprofen [Motrin] 600 mg PO Q6HR PRN #30 tab 08/07/19 Ciprofloxacin HCl [Cipro] 250 mg PO BID 3 Days #6 tab 01/08/20 Ondansetron Odt [Zofran Odt] 4 mg PO Q8HR PRN #10 tab 01/08/20 Allergies Allergy/AdvReac Type Severity Reaction Status Date / Time nut - unspecified Allergy Anaphylaxis Verified 01/08/20 14:11 peanut Allergy Anaphylaxis Verified 01/08/20 14:11 Sulfa (Sulfonamide Allergy Rash/Hives Verified 01/08/20 14:11 Antibiotics) tree nut [Nut] Allergy Anaphylaxis Verified 01/08/20 14:11 Review of Systems ROS Statement: Those systems with pertinent positive or pertinent negative responses have been documented in the HPI. ROS Other: All systems not noted in ROS Statement are negative. Past Medical History Past Medical History: Seizure Disorder, Thyroid Disorder Additional Past Medical History / Comment(s): cerebral palsy, gullian barre in 2010, multiple miscarriages, History of Any Multi-Drug Resistant Organisms: None Reported Past Surgical History: No Surgical Hx Reported Additional Past Surgical History / Comment(s): no reported hx Past Anesthesia/Blood Transfusion Reactions: No Reported Reaction Additional Past Anesthesia/Blood Transfusion Reaction / Comment(s): FATHER- TAKES LONGER TO WAKE UP WITH ANESTHESIA" Past Psychological History: Anxiety, Bipolar Smoking Status: Former smoker Past Alcohol Use History: None Reported Past Drug Use History: None Reported - Past Family History Mother Family Medical History: Diabetes Mellitus, Hypertension, Seizure Disorder, Supraventricular Tachycardia (SVT) Additional Family Medical History / Comment(s): SVT Father History Unknown: Yes General Exam Limitations: no limitations General appearance: alert, in no apparent distress Head exam: Present: atraumatic, normocephalic Eye exam: Present: normal appearance, EOMI ENT exam: Present: mucous membranes moist Respiratory exam: Present: normal lung sounds bilaterally. Absent: respiratory distress, wheezes, rales, rhonchi Cardiovascular Exam: Present: regular rate, normal rhythm, normal heart sounds, other (Normal radial pulses bilaterally) GI/Abdominal exam: Present: soft, normal bowel sounds, other (Mild generalized lower abdominal tenderness; no McBurney's point tenderness). Absent: distended, guarding, rebound Extremities exam: Absent: tenderness, pedal edema Back exam: Absent: CVA tenderness (R), CVA tenderness (L) Neurological exam: Present: alert, oriented X3. Absent: motor sensory deficit Psychiatric exam: Present: normal affect, normal mood Skin exam: Present: warm, dry, intact, normal color Course Vital Signs 01/08/20 01/08/20 14:07 15:48 Temperature 98.2 F 97.9 F Pulse Rate 104 H 96 Respiratory 20 18 Rate Blood Pressure 136/86 117/75 O2 Sat by Pulse 99 Oximetry - Reevaluation(s) Reevaluation #1: 01/08/20 16:06 Patient's abdomen remains soft and without any surgical signs on exam. Patient denies development of any new symptoms while in the ED. Patient is aware of her test results, and she feels comfortable being discharged home at this time. Medical Decision Making - Medical Decision Making Patient's UA is suggestive of possible UTI. Given her reported lower abdominal pain, will treat the patient with a course of antibiotics for UTI. Patient has no surgical signs on exam, and she has no McBurney's point tenderness. Patient is afebrile and without leukocytosis. Patient's test is negative. Patient's labs are otherwise fairly unremarkable. I do not suspect an emergent medical condition or a surgical abdominal process. Will discharge the patient home at this time. Patient was counseled about abdominal pain and UTI, and she was clearly explained return and follow-up instructions. She was instructed to return to the ED should she develop new or worsening pain or symptoms. Patient was also instructed to follow up closely with her primary care provider. She feels comfortable with this plan. - Lab Data Result diagrams: 01/08/20 14:56 01/08/20 14:56 Lab Results 01/08/20 01/08/20 01/08/20 Range/Units 14:15 14:15 14:56 WBC 8.3 (3.8-10.6) k/uL RBC 4.95 (3.80-5.40) m/uL Hgb 12.3 (11.4-16.0) gm/dL Hct 39.9 (34.0-46.0) % MCV 80.8 (80.0-100.0) fL MCH 24.8 L (25.0-35.0) pg MCHC 30.7 L (31.0-37.0) g/dL RDW 15.7 H (11.5-15.5) % Plt Count 235 (150-450) k/uL Neutrophils % 69 % Lymphocytes % 22 % Monocytes % 5 % Eosinophils % 2 % Basophils % 1 % Neutrophils # 5.7 (1.3-7.7) k/uL Lymphocytes # 1.9 (1.0-4.8) k/uL Monocytes # 0.4 (0-1.0) k/uL Eosinophils # 0.2 (0-0.7) k/uL Basophils # 0.0 (0-0.2) k/uL Hypochromasia Slight Sodium (137-145) mmol/L Potassium (3.5-5.1) mmol/L Chloride (98-107) mmol/L Carbon Dioxide (22-30) mmol/L Anion Gap mmol/L BUN (7-17) mg/dL Creatinine (0.52-1.04) mg/dL Est GFR (CKD-EPI)AfAm (>60 ml/min/1.73 sqM) Est GFR (CKD-EPI)NonAf (>60 ml/min/1.73 sqM) Glucose (74-99) mg/dL Calcium (8.4-10.2) mg/dL Total Bilirubin (0.2-1.3) mg/dL AST (14-36) U/L ALT (4-34) U/L Alkaline Phosphatase (38-126) U/L Total Protein (6.3-8.2) g/dL Albumin (3.5-5.0) g/dL Lipase (23-300) U/L HCG, Quant mIU/mL Urine Color Yellow Urine Appearance Cloudy H (Clear) Urine pH 6.0 (5.0-8.0) Ur Specific [place] 1.036 H (1.001-1.035) Urine Protein 1+ H (Negative) Urine Glucose (UA) Negative (Negative) Urine Ketones Negative (Negative) Urine Blood Negative (Negative) Urine Nitrite Negative (Negative) Urine Bilirubin Negative (Negative) Urine Urobilinogen <2.0 (<2.0) mg/dL Ur Leukocyte Esterase Large H (Negative) Urine RBC 2 (0-5) /hpf Urine WBC 14 H (0-5) /hpf Ur Squamous Epith Cells 9 H (0-4) /hpf Urine Bacteria Rare H (None) /hpf Hyaline Casts 1 (0-2) /lpf Urine Mucus Moderate H (None) /hpf Urine HCG, Qual Not Detected (Not Detectd) 01/08/20 Range/Units 14:56 WBC (3.8-10.6) k/uL RBC (3.80-5.40) m/uL Hgb (11.4-16.0) gm/dL Hct (34.0-46.0) % MCV (80.0-100.0) fL MCH (25.0-35.0) pg MCHC (31.0-37.0) g/dL RDW (11.5-15.5) % Plt Count (150-450) k/uL Neutrophils % % Lymphocytes % % Monocytes % % Eosinophils % % Basophils % % Neutrophils # (1.3-7.7) k/uL Lymphocytes # (1.0-4.8) k/uL Monocytes # (0-1.0) k/uL Eosinophils # (0-0.7) k/uL Basophils # (0-0.2) k/uL Hypochromasia Sodium 141 (137-145) mmol/L Potassium 3.8 (3.5-5.1) mmol/L Chloride 105 (98-107) mmol/L Carbon Dioxide 25 (22-30) mmol/L Anion Gap 11 mmol/L BUN 18 H (7-17) mg/dL Creatinine 0.78 (0.52-1.04) mg/dL Est GFR (CKD-EPI)AfAm >90 (>60 ml/min/1.73 sqM) Est GFR (CKD-EPI)NonAf >90 (>60 ml/min/1.73 sqM) Glucose 98 (74-99) mg/dL Calcium 9.3 (8.4-10.2) mg/dL Total Bilirubin 0.5 (0.2-1.3) mg/dL AST 29 (14-36) U/L ALT 22 (4-34) U/L Alkaline Phosphatase 102 (38-126) U/L Total Protein 7.7 (6.3-8.2) g/dL Albumin 4.6 (3.5-5.0) g/dL Lipase 74 (23-300) U/L HCG, Quant <2.4 mIU/mL Urine Color Urine Appearance (Clear) Urine pH (5.0-8.0) Ur Specific [place] (1.001-1.035) Urine Protein (Negative) Urine Glucose (UA) (Negative) Urine Ketones (Negative) Urine Blood (Negative) Urine Nitrite (Negative) Urine Bilirubin (Negative) Urine Urobilinogen (<2.0) mg/dL Ur Leukocyte Esterase (Negative) Urine RBC (0-5) /hpf Urine WBC (0-5) /hpf Ur Squamous Epith Cells (0-4) /hpf Urine Bacteria (None) /hpf Hyaline Casts (0-2) /lpf Urine Mucus (None) /hpf Urine HCG, Qual (Not Detectd) Disposition Clinical Impression: Abdominal pain, Nausea Narrative: Suspected UTI Disposition: HOME SELF-CARE Condition: Stable Instructions (If sedation given, give patient instructions): Abdominal Pain (ED), Urinary Tract Infection in Women (ED) Additional Instructions: Return to the ER immediately should you develop new or worsening pain, right lower abdominal pain, a fever, vomiting, feeling dizzy or faint, shortness of breath, or new or worsening symptoms. Follow up closely with your primary care provider. Prescriptions: Ciprofloxacin HCl [Cipro] 250 mg PO BID 3 Days #6 tab Ondansetron Odt [Zofran Odt] 4 mg PO Q8HR PRN #10 tab PRN Reason: Nausea Is patient prescribed a controlled substance at d/c from ED?: No Referrals: None,Stated [Primary Care Provider] - 1-2 days Time of Disposition: 16:12
[2020-01-08 15:12] LABS: Basophils % (A) 1 %; Eosinophils # (A) 0.2 k/uL (0-0.7); Eosinophils % (A) 2 %; HCT 39.9 % (34.0-46.0); HGB 12.3 gm/dL (11.4-16.0); Hypochromasia Slight; Lymphocytes # (A) 1.9 k/uL (1.0-4.8); Lymphocytes % (A) 22 %; MCH 24.8 pg (25.0-35.0); MCHC 30.7 g/dL (31.0-37.0); MCV 80.8 fL (80.0-100.0); Mean Platelet Volume 8.7; Monocytes # (A) 0.4 k/uL (0-1.0); Monocytes % (A) 5 %; Neutrophils # (A) 5.7 k/uL (1.3-7.7); Neutrophils % (A) 69 %; Platelet Count 235 k/uL (150-450); RBC 4.95 m/uL (3.80-5.40); RDW 15.7 % (11.5-15.5); WBC 8.3 k/uL (3.8-10.6)
[2020-01-08 15:21] LABS: ALT 22 U/L (4-34); AST 29 U/L (14-36); African American GFR (CKD) >90 (>60 ml/min/1.73 sqM); Albumin 4.6 g/dL (3.5-5.0); Alkaline Phosphatase 102 U/L (38-126); Anion Gap 11 mmol/L; Blood Urea Nitrogen 18 mg/dL (7-17); Calcium 9.3 mg/dL (8.4-10.2); Carbon Dioxide 25 mmol/L (22-30); Chloride 105 mmol/L (98-107); Glucose 98 mg/dL (74-99); Non-African American GFR(CKD) >90 (>60 ml/min/1.73 sqM); Potassium 3.8 mmol/L (3.5-5.1); Sodium 141 mmol/L (137-145); Total Bilirubin 0.5 mg/dL (0.2-1.3); Total Protein 7.7 g/dL (6.3-8.2)
[2020-01-08 15:38] LABS: HCG,Quantitative Serum <2.4 mIU/mL
[2020-01-08 15:49] VITALS: BP 117/75; PULSE 96; RESP 18; TEMP 97.9
== END 2020-01-08 16:20 | disposition home or self-care (01) ==
LOC: EC 14:06
DX: R11.0 Nausea (principal); N39.0 Urinary tract infection, site not specified; Z32.02 Encounter for pregnancy test, result negative; G80.9 Cerebral palsy, unspecified; G61.0 Guillain-Barre syndrome; Z87.891 Personal history of nicotine dependence; Z88.2 Allergy status to sulfonamides; Z91.010 Allergy to peanuts; Z91.018 Allergy to other foods; Z79.82 Long term (current) use of aspirin; Z97.5 Presence of (intrauterine) contraceptive device
CPT/HCPCS: 36415; 80053; 83690; 85025; 81001; 81025; 84702; 87086; 99284; 96374; 96361; J2405

== ENCOUNTER → 2020-03-16 | Outpatient (CLI) | payer OTHER ==
--- NOTE | 2020-03-16 17:22 | US ---
EXAMINATION TYPE: US pelvis complete transvag DATE OF EXAM: 03/16/2020 COMPARISON: NONE CLINICAL HISTORY: Z97.5Presence of (intrauterine) [id number]. Patient states IUD fell out x few days ago. TECHNIQUE: Transvaginal (TV) and Transabdominal (TA) . Transabdominal sonographic images of the pel vis were acquired. Transvaginal sonographic images were medically necessary to better assess the fol lowing anatomy: Endometrium Date of LMP: 02/17/2020, EXAM MEASUREMENTS: Uterus: 7.8 x 6.2 x 3.8 cm Endometrial Stripe: 1.1 cm Right Ovary: 2.9 x 1.9 x 2.0 cm Left Ovary: 3.2 x 2.3 x 2.1 cm 1. Uterus: Anteverted wnl 2. Endometrium: Appears heterogenous and with possible fluid with debris. IUD not visualized 3. Right Ovary: follicles 4. Left Ovary: follicles 5. Bilateral Adnexa: wnl 6. Posterior cul-de-sac: no free fluid Cervix- nabothian cysts. Fluid seen at external os. Heterogeneous anteverted uterus. Endometrial stripe is not thickened but canal shows hypoechoic mater ial probable blood products or debris. Shadowing linear IUD not identified in normal or abnormal posi tion. IMPRESSION: Blood products felt present within central endometrial canal. Expulsion of IUD confirmed.
== END | disposition home or self-care (01) ==
LOC: RADUSWWP 14:36
PROVIDERS: ATTEND Obstetrics & Gynecology
DX: T83.32XA Displacement of intrauterine contraceptive device, initial encounter (principal); T83.89XA Other specified complication of genitourinary prosthetic devices, implants and grafts, initial encounter; N92.0 Excessive and frequent menstruation with regular cycle
CPT/HCPCS: 76830; 76856

== ENCOUNTER 2020-04-24 15:13 | Emergency (ER) | payer OTHER ==
[2020-04-24] MEDS ORDERED: ONDANSETRON 4 MG ODT STARTER PACK 2 TAB BTL PO STA (15:31)
--- NOTE | 2020-04-24 15:33 | ED ---
Nausea/Vomiting/Diarrhea HPI - General Chief complaint: Nausea/Vomiting/Diarrhea Stated complaint: Nausea, headache Time Seen by Provider: 04/24/20 15:22 Source: patient Mode of arrival: ambulatory Limitations: no limitations - History of Present Illness Initial comments: 24-year-old female presenting today for chief complaint of nausea, vomiting. Patient states that she became nauseated at work and have multiple episodes of vomiting. Patient states that she denied a headache prior to this. Patient states that she gradually developed a headache stating that this is typical when she doesn't wear her glasses and she is not wearing her glasses today she states she was not really concerned the headache more so the nausea, vomiting. Denies visual changes, neck stiffness, fever, cough, congestion, urinary symptoms. Unsure if she is . LMP lst month. Patient has no additional complaints, denies diarrhea, hemoptysis or lightheadedness. on arrival no active vomiting appears well. States she came to the ER because she was told she needed to be covid tested before she could come back. - Related Data Home Medications Medication Instructions Recorded Confirmed Aspirin [[place] Aspirin EC] 81 mg PO DAILY 02/23/19 08/05/19 Folic Acid 1 mg PO DAILY 02/23/19 08/05/19 Nys-Evmd-Iraed Acid 1 cap PO DAILY 02/23/19 08/05/19 [-U Capsule (formulary)] metFORMIN HCL 500 mg PO AC-BID 07/29/19 08/05/19 Previous Rx's Medication Instructions Recorded Ibuprofen [Motrin] 600 mg PO Q6HR PRN #30 tab 08/07/19 Ciprofloxacin HCl [Cipro] 250 mg PO BID 3 Days #6 tab 01/08/20 Ondansetron Odt [Zofran Odt] 4 mg PO Q8HR PRN #10 tab 01/08/20 Allergies Allergy/AdvReac Type Severity Reaction Status Date / Time nut - unspecified Allergy Anaphylaxis Verified 04/24/20 15:21 peanut Allergy Anaphylaxis Verified 04/24/20 15:21 Sulfa (Sulfonamide Allergy Rash/Hives Verified 04/24/20 15:21 Antibiotics) tree nut [Nut] Allergy Anaphylaxis Verified 04/24/20 15:21 Review of Systems ROS Statement: Those systems with pertinent positive or pertinent negative responses have been documented in the HPI. ROS Other: All systems not noted in ROS Statement are negative. Past Medical History Past Medical History: Seizure Disorder, Thyroid Disorder Additional Past Medical History / Comment(s): cerebral palsy, gullian barre in 2011, multiple miscarriages, History of Any Multi-Drug Resistant Organisms: None Reported Past Surgical History: No Surgical Hx Reported Additional Past Surgical History / Comment(s): no reported hx Past Anesthesia/Blood Transfusion Reactions: No Reported Reaction Additional Past Anesthesia/Blood Transfusion Reaction / Comment(s): FATHER- TAKES LONGER TO WAKE UP WITH ANESTHESIA" Past Psychological History: Anxiety, Bipolar Smoking Status: Former smoker Past Alcohol Use History: None Reported Past Drug Use History: None Reported - Past Family History Mother Family Medical History: Diabetes Mellitus, Hypertension, Seizure Disorder, Supraventricular Tachycardia (SVT) Additional Family Medical History / Comment(s): SVT Father History Unknown: Yes General Exam - General Exam Comments Initial Comments: General: The patient is awake and alert, in no distress, and does not appear acutely ill. Eye: +3 mm pupils are equal, round and reactive to light, extra-ocular movements are intact. No nystagmus. There is normal conjunctiva bilaterally. No signs of icterus. Ears, nose, mouth and throat: There are moist mucous membranes and no oral lesions. Neck: The neck is supple, there is no tenderness or JVD. Cardiovascular: There is a regular rate and rhythm. No murmur, rub or gallop is appreciated. Respiratory: Lungs are clear to auscultation, respirations are non-labored, breath sounds are equal. No wheezes, stridor, rales, or rhonchi. Gastrointestinal: Soft, non-distended, non-tender abdomen without masses or organomegaly noted. There is no rebound or guarding present. Musculoskeletal: Normal ROM, no tenderness. Strength 5/5. Sensation intact. Radial pulses equal bilaterally 2+. Neurological: A&O x 3. CN II-XII intact, There are no obvious motor or sensory deficits. Coordination appears grossly intact. Speech is normal. Skin: Skin is warm and dry and no rashes or lesions are noted. Psychiatric: Cooperative, appropriate mood & affect, normal judgment. Limitations: no limitations Course Vital Signs 04/24/20 04/24/20 04/24/20 15:19 16:31 16:34 Temperature 98.4 F 98 F 98 F Pulse Rate 76 62 62 Respiratory 20 16 16 Rate Blood Pressure 122/80 105/71 105/71 O2 Sat by Pulse 97 95 95 Oximetry Medical Decision Making - Medical Decision Making 24yo presenting for vomiting that began today. HCG (-) no fevers, no abdominal pain complaints nor on exam. Patient appears well nontoxic. 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 Discussed return parameters and importance of PCP f/u. Patient is agreeable to care plan and discharge. - Lab Data Lab Results 04/24/20 Range/Units 15:44 Urine HCG, Qual Not Detected (Not Detectd) Disposition Clinical Impression: Nausea, Vomiting, Headache Disposition: HOME SELF-CARE Condition: Good Instructions (If sedation given, give patient instructions): Acute Nausea and Vomiting (ED) Additional Instructions: Please use medication as discussed. Please follow-up with family doctor in the next 2 days. Please return to emergency room if the symptoms increase or worsen or for any other concerns. Is patient prescribed a controlled substance at d/c from ED?: No Referrals: None,Stated [Primary Care Provider] - 1-2 days Time of Disposition: 15:32
[2020-04-24 16:35] VITALS: BP 105/71; PULSE 62; RESP 16; TEMP 98
== END 2020-04-24 16:36 | disposition home or self-care (01) ==
LOC: EC 15:13
DX: R11.2 Nausea with vomiting, unspecified (principal); R51 Headache; G80.9 Cerebral palsy, unspecified; Z79.82 Long term (current) use of aspirin; Z87.891 Personal history of nicotine dependence; Z91.010 Allergy to peanuts; Z88.2 Allergy status to sulfonamides; Z20.828 Contact with and (suspected) exposure to other viral communicable diseases
CPT/HCPCS: 81025; 99284; U0003; S0119

== ENCOUNTER → 2020-05-12 | Outpatient (CLI) | payer OTHER ==
--- NOTE | 2020-05-12 15:36 | XR ---
EXAMINATION TYPE: XR lumbar spine 2 or 3V DATE OF EXAM: 05/12/2020 CLINICAL HISTORY: Right foot numbness for one week. 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 TECHNIQUE: Frontal and lateral views of the lumbar spine obtained. COMPARISON: 01/07/2011 lumbar radiograph FINDINGS: There are 5 lumbar type vertebral bodies identified. The lumbar spine shows satisfactory alignment without evidence of acute fracture or dislocation. Vertebral body heights and disk space he ights are within normal limits. The overlying soft tissue appears unremarkable. IMPRESSION: No acute fracture or dislocation is seen in the lumbar spine.
== END | disposition home or self-care (01) ==
LOC: RADXRMAIN 11:36
PROVIDERS: ATTEND Internal Medicine
DX: G90.09 Other idiopathic peripheral autonomic neuropathy (principal)
CPT/HCPCS: 72100

== ENCOUNTER → 2020-09-01 | Outpatient (CLI) | payer OTHER | END | disposition home or self-care (01) | LOC: LABWHC1 16:25 | PROVIDERS: ATTEND Obstetrics & Gynecology | DX: N91.2 Amenorrhea, unspecified (principal) | CPT/HCPCS: 36415; 84702 ==

== ENCOUNTER 2020-09-07 15:35 | Emergency (ER) | payer OTHER ==
--- NOTE | 2020-09-07 17:14 | ED ---
General Adult HPI - General Chief complaint: Headache Stated complaint: headaches/cough/diarrhea Time Seen by Provider: 09/07/20 16:56 Source: patient Mode of arrival: ambulatory Limitations: no limitations - History of Present Illness Initial comments: Patient is 24-year-old female presenting to the emergency department with a chief complaint of headache and nausea. Patient reports she was exposed to her who tested positive or Covid about 4 days ago. Patient states about 2 days ago she developed her symptoms. She also reports some sinus congestion and rhinorrhea. States she has some chills but no fevers at home. Does report taking Tylenol Cold for the fever. She denies any chest pain, shortness of breath, light headedness, dizziness. States she does have history of headaches and they are exacerbated whenever she is sick. She does report nausea but no vomiting or diarrhea. - Related Data Home Medications Medication Instructions Recorded Confirmed Aspirin [[place] Aspirin EC] 81 mg PO DAILY 02/23/19 08/05/19 Folic Acid 1 mg PO DAILY 02/23/19 08/05/19 Qjx-Kuhz-Swzms Acid 1 cap PO DAILY 02/23/19 08/05/19 [-U Capsule (formulary)] metFORMIN HCL 500 mg PO AC-BID 07/29/19 08/05/19 Previous Rx's Medication Instructions Recorded Ibuprofen [Motrin] 600 mg PO Q6HR PRN #30 tab 08/07/19 Ciprofloxacin HCl [Cipro] 250 mg PO BID 3 Days #6 tab 01/08/20 Ondansetron Odt [Zofran Odt] 4 mg PO Q8HR PRN #10 tab 01/08/20 Allergies Allergy/AdvReac Type Severity Reaction Status Date / Time nut - unspecified Allergy Anaphylaxis Verified 09/07/20 16:25 peanut Allergy Anaphylaxis Verified 09/07/20 16:25 Sulfa (Sulfonamide Allergy Rash/Hives Verified 09/07/20 16:25 Antibiotics) tree nut [Nut] Allergy Anaphylaxis Verified 09/07/20 16:25 Review of Systems ROS Statement: Those systems with pertinent positive or pertinent negative responses have been documented in the HPI. ROS Other: All systems not noted in ROS Statement are negative. Past Medical History Past Medical History: Seizure Disorder, Thyroid Disorder Additional Past Medical History / Comment(s): cerebral palsy, gullian barre in 2010, multiple miscarriages, History of Any Multi-Drug Resistant Organisms: None Reported Past Surgical History: No Surgical Hx Reported Additional Past Surgical History / Comment(s): no reported hx Past Anesthesia/Blood Transfusion Reactions: No Reported Reaction Additional Past Anesthesia/Blood Transfusion Reaction / Comment(s): FATHER- TAKES LONGER TO WAKE UP WITH ANESTHESIA" Past Psychological History: Anxiety, Bipolar Smoking Status: Never smoker Past Alcohol Use History: None Reported Past Drug Use History: None Reported - Past Family History Mother Family Medical History: Diabetes Mellitus, Hypertension, Seizure Disorder, Supraventricular Tachycardia (SVT) Additional Family Medical History / Comment(s): SVT Father History Unknown: Yes General Exam Limitations: no limitations General appearance: alert, in no apparent distress Head exam: Present: atraumatic, normocephalic, normal inspection Eye exam: Present: normal appearance, PERRL, EOMI Pupils: Present: normal accommodation ENT exam: Present: normal exam, normal oropharynx, mucous membranes moist, TM's normal bilaterally, normal external ear exam Neck exam: Present: normal inspection, full ROM. Absent: tenderness, lymphadenopathy Respiratory exam: Present: normal lung sounds bilaterally. Absent: respiratory distress, wheezes, rales, rhonchi, stridor, chest wall tenderness, accessory muscle use Cardiovascular Exam: Present: regular rate, normal rhythm, normal heart sounds. Absent: bradycardia, tachycardia, systolic murmur, diastolic murmur Extremities exam: Present: normal inspection, full ROM, normal capillary refill. Absent: tenderness, pedal edema, joint swelling, calf tenderness Back exam: Present: normal inspection, full ROM. Absent: tenderness, CVA tenderness (R), CVA tenderness (L) Neurological exam: Present: alert, oriented X3 Psychiatric exam: Present: normal affect, normal mood. Absent: depressed, agitated Skin exam: Present: warm, dry, intact, normal color Course Vital Signs 09/07/20 09/07/20 16:23 17:57 Temperature 97.8 F 98 F Pulse Rate 99 78 Respiratory 18 16 Rate Blood Pressure 110/78 128/78 O2 Sat by Pulse 96 99 Oximetry Medical Decision Making - Medical Decision Making 24-year-old female presenting to the emergency department with a chief complaint of headache and nausea. On physical examination, patient is not in any respiratory distress. Lungs are clear to auscultation. Her vitals are stable. Patient also brought her 4 children to be evaluated as well. They have all been exposed to her who tested positive for days ago. I advised the patient that I we will only swab her for Covid, PCR testing. I advised her that if one person living in the household had tested positive while they have been living in close quarters for several days, the likelihood is very high that all of them have contracted the virus. She will receive the results in 3-5 days. She was advised to self isolate for 10 days from the day of onset of symptoms and only take Tylenol if she develops a fever. She was advised to follow with the primary care physician. Strict return parameters were thoroughly discussed with patient was intending agreeable. Case discussed with physician. Disposition Clinical Impression: Diarrhea, Headache, Fever Disposition: HOME SELF-CARE Condition: Stable Instructions (If sedation given, give patient instructions): Acute Headache (ED) Additional Instructions: Self isolate for 10 days from the onset of symptoms. Take Tylenol for fever. Follow with a primary care physician. Return to emergency department if symptoms worsen. Is patient prescribed a controlled substance at d/c from ED?: No Referrals: Mi Unger MD [Primary Care Provider] - 1-2 days Time of Disposition: 17:13
[2020-09-07 17:58] VITALS: BP 128/78; PULSE 78; RESP 16; TEMP 98
== END 2020-09-07 17:57 | disposition home or self-care (01) ==
LOC: EC 15:35
DX: R51.9 Headache, unspecified (principal); R50.9 Fever, unspecified; R19.7 Diarrhea, unspecified; Z88.2 Allergy status to sulfonamides; Z91.010 Allergy to peanuts; Z91.048 Other nonmedicinal substance allergy status; Z20.828 Contact with and (suspected) exposure to other viral communicable diseases
CPT/HCPCS: 99284; U0003

== ENCOUNTER → 2020-09-23 | Outpatient (CLI) | payer OTHER ==
[2020-09-24 09:12] LABS: DHEA Sulfate 366.7 ug/dL (26.0-430.0)
[2020-09-24 09:42] LABS: Estradiol 43.6 pg/mL; Luteinizing Hormone 9.1 mIU/mL; Prolactin 6.5 ng/mL (2.8-29.2)
[2020-09-24 09:43] LABS: Follicle Stimulating Hormone 9.9 mIU/mL
[2020-09-24 09:59] LABS: HCG,Quantitative Serum <2.0 mIU/mL
[2020-09-24 10:54] LABS: Progesterone 0.9 ng/mL
== END | disposition home or self-care (01) ==
LOC: LABWHC1 15:41
PROVIDERS: ATTEND Obstetrics & Gynecology
DX: Z13.29 Encounter for screening for other suspected endocrine disorder (principal); N93.8 Other specified abnormal uterine and vaginal bleeding
CPT/HCPCS: 36415; 82627; 82670; 83001; 83002; 84144; 84146; 84403; 84439; 84443; 84479; 84702

== ENCOUNTER → 2020-09-29 | Outpatient (CLI) | payer OTHER ==
--- NOTE | 2020-09-29 15:52 | US ---
EXAMINATION TYPE: US pelvic complete DATE OF EXAM: 09/29/2020 COMPARISON: [place] office on March 16, 2020 CLINICAL HISTORY: R10.2 PELVIC PAIN. cycles stopped in March, spotting in April, , pelvic pain and patient states her cervix dilates on it's own. TECHNIQUE: TA. Transabdominal sonographic images of the pelvis were acquired. Date of LMP: 03/2020 EXAM MEASUREMENTS: Uterus: 8.4 x 5.5 x 4.1 cm Endometrial Stripe: 1.1 cm Right Ovary: 2.4 x 1.8 x 2.0 cm Left Ovary: 2.4 x 2.0 x 1.8 cm 1. Uterus: Anteverted wnl 2. Endometrium: wnl 3. Right Ovary: follicles seen 4. Left Ovary: follicles seen 5. Bilateral Adnexa: wnl 6. Posterior cul-de-sac: wnl IMPRESSION: Transabdominal pelvic ultrasound is within normal limits on current study.
== END | disposition home or self-care (01) ==
LOC: RADUSWWP 15:05
PROVIDERS: ATTEND Obstetrics & Gynecology
DX: R10.2 Pelvic and perineal pain (principal)
CPT/HCPCS: 76856

== ENCOUNTER 2020-10-21 00:39 | Emergency (ER) | payer OTHER ==
[2020-10-21] MEDS ORDERED: KETOROLAC 15 MG/ML 1 ML VIAL IM STA (01:25)
--- NOTE | 2020-10-21 01:36 | ED ---
General Adult HPI - General Chief complaint: Chest Pain Stated complaint: Chest Pain Time Seen by Provider: 10/21/20 00:55 Source: patient Mode of arrival: wheelchair Limitations: no limitations - History of Present Illness Initial comments: 24-year-old female patient presents to the emergency department today for evaluation of chest pain. Patient states the pain is in the right upper chest started suddenly around 8 PM and has been worsening since. States she does have some shortness of breath with this. States the pain worsens with movement. Den ies any recent injury. States that she was not doing any increased physical activity at time of onset. Denies ever having pain similar to this. Denies cough or congestion. Denies fever or chills. Denies any pain to the lower extremities her calves. Denies taking any medications for her symptoms. Patient denies any recent rash, abdominal pain, nausea, vomiting, diarrhea, constipation, back pain, numbness, tingling, dizziness, weakness, hematuria, dysuria, urinary urgency, urinary frequency, headache, visual changes, or any other complaints. - Related Data Home Medications Medication Instructions Recorded Confirmed Aspirin [[place] Aspirin EC] 81 mg PO DAILY 02/23/19 08/05/19 Folic Acid 1 mg PO DAILY 02/23/19 08/05/19 Fyv-Fcsu-Zgcnk Acid 1 cap PO DAILY 02/23/19 08/05/19 [-U Capsule (formulary)] metFORMIN HCL 500 mg PO AC-BID 07/29/19 08/05/19 Previous Rx's Medication Instructions Recorded Ibuprofen [Motrin] 600 mg PO Q6HR PRN #30 tab 08/07/19 Ciprofloxacin HCl [Cipro] 250 mg PO BID 3 Days #6 tab 01/08/20 Ondansetron Odt [Zofran Odt] 4 mg PO Q8HR PRN #10 tab 01/08/20 Ibuprofen [Motrin] 600 mg PO Q8HR PRN #30 tab 10/21/20 Allergies Allergy/AdvReac Type Severity Reaction Status Date / Time nut - unspecified Allergy Anaphylaxis Verified 10/21/20 00:50 peanut Allergy Anaphylaxis Verified 10/21/20 00:50 Sulfa (Sulfonamide Allergy Rash/Hives Verified 10/21/20 00:50 Antibiotics) tree nut [Nut] Allergy Anaphylaxis Verified 10/21/20 00:50 Review of Systems ROS Statement: Those systems with pertinent positive or pertinent negative responses have been documented in the HPI. ROS Other: All systems not noted in ROS Statement are negative. Past Medical History Past Medical History: Seizure Disorder, Thyroid Disorder Additional Past Medical History / Comment(s): cerebral palsy, gullian barre in 2011, multiple miscarriages, History of Any Multi-Drug Resistant Organisms: None Reported Past Surgical History: No Surgical Hx Reported Additional Past Surgical History / Comment(s): no reported hx Past Anesthesia/Blood Transfusion Reactions: No Reported Reaction Additional Past Anesthesia/Blood Transfusion Reaction / Comment(s): FATHER- TAKES LONGER TO WAKE UP WITH ANESTHESIA" Past Psychological History: Anxiety, Bipolar Smoking Status: Never smoker Past Alcohol Use History: None Reported Past Drug Use History: None Reported - Past Family History Mother Family Medical History: Diabetes Mellitus, Hypertension, Seizure Disorder, Supraventricular Tachycardia (SVT) Additional Family Medical History / Comment(s): SVT Father History Unknown: Yes General Exam Limitations: no limitations General appearance: alert, in no apparent distress, other (This is a well- developed, well-nourished adult female patient in no acute distress. Vital signs upon presentation are temperature 98.1F, pulse 81, respirations 16, blood pressure 129/81, pulse ox 98% on room air.) Respiratory exam: Present: normal lung sounds bilaterally, chest wall tenderness (Right upper). Absent: respiratory distress, wheezes, rales, rhonchi, stridor, accessory muscle use Cardiovascular Exam: Present: regular rate, normal rhythm, normal heart sounds. Absent: systolic murmur, diastolic murmur, rubs, gallop, clicks GI/Abdominal exam: Present: soft, normal bowel sounds. Absent: distended, tenderness, guarding, rebound, rigid Neurological exam: Present: alert, oriented X3, CN II-XII intact Psychiatric exam: Present: normal affect, normal mood Skin exam: Present: warm, dry, intact, normal color. Absent: rash Course Vital Signs 10/21/20 10/21/20 00:50 01:52 Temperature 98.1 F Pulse Rate 81 Respiratory 16 18 Rate Blood Pressure 129/81 O2 Sat by Pulse 98 Oximetry EKG Findings - EKG Comments: EKG Findings:: EKG obtained at 0101 shows normal sinus rhythm with a ventricular rate of 89, NJ interval 166, QRS duration 84, QT 374, QTC 455, no evidence of ST elevation or depression. Medical Decision Making - Medical Decision Making 24 year old female patient presents to the emergency department today for evaluation of right-sided chest pain. Reports increased pain with movement and palpation over the area. Lungs are clear to auscultation with good air movement. EKG is unremarkable no ST elevation or depression. Chest x-ray is negative. She was given IM Toradol. Upon reevaluation she is resting comfortable in bed. She'll be discharged home to follow-up with her primary care physician for recheck in 1-2 days. Return parameters were discussed in detail. She verbalizes understanding and agrees with this plan. - Lab Data Lab Results 10/21/20 Range/Units 01:45 Urine HCG, Qual Not Detected (Not Detectd) - Radiology Data Radiology results: image reviewed Two-view x-ray of the chest is obtained. No signs of acute cardio pulmonary process after review of the images. Disposition Clinical Impression: Chest pain Disposition: HOME SELF-CARE Condition: Good Instructions (If sedation given, give patient instructions): Chest Pain (ED) Additional Instructions: Follow up with your primary care physician for recheck in 1-2 days. Return to the emergency department for further evaluation of any new, worsening, or concerning symptoms. Rest. Prescriptions: Ibuprofen [Motrin] 600 mg PO Q8HR PRN #30 tab PRN Reason: Pain Is patient prescribed a controlled substance at d/c from ED?: No Referrals: Mi Unger MD [Primary Care Provider] - 1-2 days Time of Disposition: 02:53
[2020-10-21 02:04] VITALS: RESP 18
--- NOTE | 2020-10-21 02:56 | XR ---
EXAM: XR Chest, 2 Views CLINICAL HISTORY: ITS.REASON XR Reason: Chest pain TECHNIQUE: Frontal and lateral views of the chest. COMPARISON: 10/17/2018 FINDINGS: Lungs: No focal consolidation. The pulmonary vasculature demonstrates no significant radiographic abnormality. Pleural space: Unremarkable. No pneumothorax. No large pleural effusion. Heart: Unremarkable. No cardiomegaly. Mediastinum: Unremarkable. No significant abnormality identified. The trachea is midline. Bones/joints: Unremarkable. IMPRESSION: No focal consolidation or acute cardiopulmonary process identified.
[2020-10-21 03:07] VITALS: BP 137/80; PULSE 76; TEMP 98.4
== END 2020-10-21 03:07 | disposition home or self-care (01) ==
LOC: EC 00:39
DX: R07.9 Chest pain, unspecified (principal); Z79.82 Long term (current) use of aspirin; Z79.899 Other long term (current) drug therapy; Z79.84 Long term (current) use of oral hypoglycemic drugs; Z91.018 Allergy to other foods; Z91.010 Allergy to peanuts; Z88.2 Allergy status to sulfonamides
CPT/HCPCS: 93005; 81025; 71046; 99285; 96372; J1885

== ENCOUNTER 2020-11-12 15:30 | Emergency (ER) | payer OTHER ==
[2020-11-12 15:44] VITALS: PULSE 86
[2020-11-12 16:15] LABS: Appearance,Urine Cloudy (Clear); Bacteria,Urine Rare /hpf; Bilirubin,Urine Negative (Negative); Blood,Urine Negative (Negative); Color,Urine Yellow; Glucose,Urine (UA) Negative (Negative); Ketones,Urine Negative (Negative); Leukocyte Esterase,Urine Large (Negative); Mucus,Urine Moderate /hpf; Nitrite,Urine Negative (Negative); PH, Urine 6.5 (5.0-8.0); Protein,Urine 1+ (Negative); RBC,Urine 4 /hpf (0-5); Specific Gravity,Urine 1.029 (1.001-1.035); Squamous Epithelial Cell,Urine 25 /hpf (0-4); Urobilinogen,Urine <2.0 mg/dL (<2.0); WBC,Urine 22 /hpf (0-5)
[2020-11-12] MEDS ORDERED: predniSONE 50 MG TAB PO STA (16:22)
[2020-11-12] MEDS ORDERED: KETOROLAC 15 MG/ML 1 ML VIAL IM STA (16:22)
--- NOTE | 2020-11-12 16:28 | ED ---
General Adult HPI - General Chief complaint: Neuro Symptoms/Deficit Stated complaint: legs are numb and painful Time Seen by Provider: 11/12/20 15:53 Source: patient, RN notes reviewed Mode of arrival: wheelchair Limitations: no limitations - History of Present Illness Initial comments: 25-year-old female with a past medical history of cerebral palsy, Guillain-Snyder presents to the emergency room for back pain. Patient reports she has back pain on the right side that radiates down the right leg. States her leg is tingling. Patient states it has been intermittently happening for several months. Patient has seen her neurologist for this who gave her a pain shot in her back. She is being referred to [facility] for this on the 25 of November. Patient states the only reason she came in today was because she needed a work note as she did not go to work. Pt denies any bladder or bowel changes, numbness in the saddle region, weakness of the legs, difficulty ambulating, or fevers. Patient has had Guillain-Snyder in the past but states this does not feel anything like that.Patient has no other complaints at this time including shortness of breath, chest pain, abdominal pain, nausea or vomiting, headache, or visual changes. - Related Data Home Medications Medication Instructions Recorded Confirmed Aspirin [[place] Aspirin EC] 81 mg PO DAILY 02/23/19 08/05/19 Folic Acid 1 mg PO DAILY 02/23/19 08/05/19 Vot-Uxsj-Sxthx Acid 1 cap PO DAILY 02/23/19 08/05/19 [-U Capsule (formulary)] metFORMIN HCL 500 mg PO AC-BID 07/29/19 08/05/19 Previous Rx's Medication Instructions Recorded Ibuprofen [Motrin] 600 mg PO Q6HR PRN #30 tab 08/07/19 Ciprofloxacin HCl [Cipro] 250 mg PO BID 3 Days #6 tab 01/08/20 Ondansetron Odt [Zofran Odt] 4 mg PO Q8HR PRN #10 tab 01/08/20 Ibuprofen [Motrin] 600 mg PO Q8HR PRN #30 tab 10/21/20 predniSONE 50 mg PO DAILY #5 tablet 11/12/20 Allergies Allergy/AdvReac Type Severity Reaction Status Date / Time nut - unspecified Allergy Anaphylaxis Verified 11/12/20 15:44 peanut Allergy Anaphylaxis Verified 11/12/20 15:44 Sulfa (Sulfonamide Allergy Rash/Hives Verified 11/12/20 15:44 Antibiotics) tree nut [Nut] Allergy Anaphylaxis Verified 11/12/20 15:44 Review of Systems ROS Statement: Those systems with pertinent positive or pertinent negative responses have been documented in the HPI. ROS Other: All systems not noted in ROS Statement are negative. Past Medical History Past Medical History: Seizure Disorder, Thyroid Disorder Additional Past Medical History / Comment(s): cerebral palsy, gullian barre in 2011, multiple miscarriages, History of Any Multi-Drug Resistant Organisms: None Reported Past Surgical History: No Surgical Hx Reported Additional Past Surgical History / Comment(s): no reported hx Past Anesthesia/Blood Transfusion Reactions: No Reported Reaction Additional Past Anesthesia/Blood Transfusion Reaction / Comment(s): FATHER- TAKES LONGER TO WAKE UP WITH ANESTHESIA" Past Psychological History: Anxiety, Bipolar Smoking Status: Never smoker Past Alcohol Use History: None Reported Past Drug Use History: None Reported - Past Family History Mother Family Medical History: Diabetes Mellitus, Hypertension, Seizure Disorder, Supraventricular Tachycardia (SVT) Additional Family Medical History / Comment(s): SVT Father History Unknown: Yes General Exam Limitations: no limitations General appearance: alert Head exam: Present: atraumatic Eye exam: Present: normal appearance, PERRL, EOMI. Absent: scleral icterus ENT exam: Present: normal exam, mucous membranes moist Neck exam: Present: normal inspection, full ROM. Absent: tenderness Respiratory exam: Present: normal lung sounds bilaterally. Absent: respiratory distress, wheezes Cardiovascular Exam: Present: regular rate, normal rhythm, normal heart sounds GI/Abdominal exam: Present: soft, normal bowel sounds. Absent: distended, tenderness, guarding, rebound, rigid Extremities exam: Present: full ROM (Full range motion of the right lower extremity.), normal capillary refill (Capillary refill less than 2 seconds in the right lower extremity, DP pulses 2+. ), other (Sensation intact right lower extremity. Strength 5 out of 5 and equal in the lower extremities bilaterally.). Absent: tenderness Neurological exam: Present: normal gait Course Vital Signs 11/12/20 15:41 Temperature 98 F Pulse Rate 86 Respiratory 16 Rate Blood Pressure 112/82 O2 Sat by Pulse 97 Oximetry Medical Decision Making - Medical Decision Making HPI and physical exam as documented. Symptoms have been ongoing for months, patient is here because she needs a work note. No red flag symptoms. No neuro deficits in the right leg. Neurovascular status intact. Patient likely experiencing lumbar radiculopathy. She will follow-up at her specialist appointment and if she has worsening symptoms she'll return here. She was given Toradol and prednisone after negative test. Urine sample does appear contaminated with squamous cells. I discussed this case with attending Dr. Veras who agrees with this assessment and treatment plan. - Lab Data Lab Results 11/12/20 11/12/20 Range/Units 16:07 16:07 Urine Color Yellow Urine Appearance Cloudy H (Clear) Urine pH 6.5 (5.0-8.0) Ur Specific [place] 1.029 (1.001-1.035) Urine Protein 1+ H (Negative) Urine Glucose (UA) Negative (Negative) Urine Ketones Negative (Negative) Urine Blood Negative (Negative) Urine Nitrite Negative (Negative) Urine Bilirubin Negative (Negative) Urine Urobilinogen <2.0 (<2.0) mg/dL Ur Leukocyte Esterase Large H (Negative) Urine RBC 4 (0-5) /hpf Urine WBC 22 H (0-5) /hpf Urine WBC Clumps Few H (None) /hpf Ur Squamous Epith Cells 25 H (0-4) /hpf Urine Bacteria Rare H (None) /hpf Urine Mucus Moderate H (None) /hpf Urine HCG, Qual Not Detected (Not Detectd) Disposition Clinical Impression: Lumbar radiculopathy, right Disposition: HOME SELF-CARE Condition: Good Instructions (If sedation given, give patient instructions): Lumbar Radiculopathy (ED), Lower Back Exercises (ED) Additional Instructions: Please take steroid as directed. Please follow-up at your specialist appointment for this complaint. Return to the emergency room for any worsening symptoms. Prescriptions: predniSONE 50 mg PO DAILY #5 tablet Is patient prescribed a controlled substance at d/c from ED?: No Referrals: Mi Unger MD [Primary Care Provider] - 1-2 days Time of Disposition: 16:27
[2020-11-12 17:02] VITALS: BP 134/85; RESP 18; TEMP 98.2
== END 2020-11-12 17:01 | disposition home or self-care (01) ==
LOC: EC 15:30
DX: M54.16 Radiculopathy, lumbar region (principal); G80.9 Cerebral palsy, unspecified; Z79.84 Long term (current) use of oral hypoglycemic drugs; Z79.82 Long term (current) use of aspirin; Z88.2 Allergy status to sulfonamides; Z91.010 Allergy to peanuts; Z91.018 Allergy to other foods
CPT/HCPCS: 81001; 81025; 87086; 99283; 96372; J1885; J7512

== ENCOUNTER 2020-11-27 14:19 | Emergency (ER) | payer OTHER ==
[2020-11-27 14:44] VITALS: RESP 16
[2020-11-27] MEDS ORDERED: SODIUM CHLORIDE 0.9% 1,000 ML IV ONE (15:10)
--- NOTE | 2020-11-27 15:13 | ED ---
General Adult HPI - General Chief complaint: Vaginal Bleeding Stated complaint: abd. pain Time Seen by Provider: 11/27/20 14:50 Source: patient, RN notes reviewed Mode of arrival: ambulatory Limitations: no limitations - History of Present Illness Initial comments: Patient is a 25-year-old G 13 P4 female currently reporting an LMP of October 29 with a positive test for a chief, and a vaginal bleeding. Patient reports that she had a positive test a few weeks ago. Patient states that she took 3 more in all were "slightly positive." Patient states today she started have some mild vaginal bleeding that has since stopped. Patient is concerned she is miscarrying. 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 Patient with some minimal cramping denies any significant pain. Denies any lightheadedness or dizziness.Patient has no other complaints at this time including shortness of breath, chest pain, abdominal pain, nausea or vomiting, headache, or visual changes. - Related Data Home Medications Medication Instructions Recorded Confirmed Aspirin [Pamlico Aspirin EC] 81 mg PO DAILY 02/23/19 08/05/19 Folic Acid 1 mg PO DAILY 02/23/19 08/05/19 Ckv-[id number]-Saxyq Acid 1 cap PO DAILY 02/23/19 08/05/19 [-U Capsule (formulary)] metFORMIN HCL 500 mg PO AC-BID 07/29/19 08/05/19 Previous Rx's Medication Instructions Recorded Ibuprofen [Motrin] 600 mg PO Q6HR PRN #30 tab 08/07/19 Ciprofloxacin HCl [Cipro] 250 mg PO BID 3 Days #6 tab 01/08/20 Ondansetron Odt [Zofran Odt] 4 mg PO Q8HR PRN #10 tab 01/08/20 Ibuprofen [Motrin] 600 mg PO Q8HR PRN #30 tab 10/21/20 predniSONE 50 mg PO DAILY #5 tablet 11/12/20 Allergies Allergy/AdvReac Type Severity Reaction Status Date / Time nut - unspecified Allergy Anaphylaxis Verified 11/27/20 14:44 peanut Allergy Anaphylaxis Verified 11/27/20 14:44 Sulfa (Sulfonamide Allergy Rash/Hives Verified 11/27/20 14:44 Antibiotics) tree nut [Nut] Allergy Anaphylaxis Verified 11/27/20 14:44 Review of Systems ROS Statement: Those systems with pertinent positive or pertinent negative responses have been documented in the HPI. ROS Other: All systems not noted in ROS Statement are negative. Past Medical History Past Medical History: Seizure Disorder, Thyroid Disorder Additional Past Medical History / Comment(s): cerebral palsy, gullian barre in 2011, multiple miscarriages, History of Any Multi-Drug Resistant Organisms: None Reported Past Surgical History: No Surgical Hx Reported Additional Past Surgical History / Comment(s): no reported hx Past Anesthesia/Blood Transfusion Reactions: No Reported Reaction Additional Past Anesthesia/Blood Transfusion Reaction / Comment(s): FATHER- TAKES LONGER TO WAKE UP WITH ANESTHESIA" Past Psychological History: Anxiety, Bipolar Smoking Status: Never smoker Past Alcohol Use History: None Reported Past Drug Use History: None Reported - Past Family History Mother Family Medical History: Diabetes Mellitus, Hypertension, Seizure Disorder, Supraventricular Tachycardia (SVT) Additional Family Medical History / Comment(s): SVT Father History Unknown: Yes General Exam Limitations: no limitations General appearance: alert Head exam: Present: atraumatic, normocephalic, normal inspection Eye exam: Present: normal appearance, PERRL, EOMI. Absent: scleral icterus, conjunctival injection ENT exam: Present: normal exam, mucous membranes moist Neck exam: Present: normal inspection, full ROM. Absent: tenderness Respiratory exam: Present: normal lung sounds bilaterally. Absent: respiratory distress, wheezes Cardiovascular Exam: Present: regular rate, normal rhythm, normal heart sounds GI/Abdominal exam: Present: soft, normal bowel sounds. Absent: distended, tenderness External exam: Present: normal external exam. Absent: erythema, swelling, lesions, lacerations, ecchymosis Speculum exam: Present: normal speculum exam. Absent: erythema, vaginal discharge, cervical discharge, vaginal bleeding, foreign body, tissue, laceratio n By manual exam: Present: normal by manual exam. Absent: cervical motion tenderness, adnexal tenderness, adnexal mass, uterine enlargement, uterine tenderness Course Vital Signs 11/27/20 11/27/20 14:41 15:48 Temperature 98.6 F Pulse Rate 79 82 Respiratory 16 16 Rate Blood Pressure 147/96 121/60 O2 Sat by Pulse 98 98 Oximetry Medical Decision Making - Medical Decision Making Vitals are stable. Patient is well-appearing. Pelvic exam did not reveal any active vaginal bleeding. CBC CMP unremarkable. HCG Quant is negative. Urinalysis is contaminated with squamous cells, culture will be sent. At this time patient does not have any evidence of . Likely experiencing her menstrual cycle as her last period was one month ago. However she will follow- up with her [facility] and return here for any worsening symptoms. - Lab Data Result diagrams: 11/27/20 15:25 11/27/20 16:10 Lab Results 11/27/20 11/27/20 11/27/20 Range/Units 15:25 15:25 15:25 WBC 8.2 (3.8-10.6) k/uL RBC 4.90 (3.80-5.40) m/uL Hgb 13.9 (11.4-16.0) gm/dL Hct 42.7 (34.0-46.0) % MCV 87.1 (80.0-100.0) fL MCH 28.3 (25.0-35.0) pg MCHC 32.5 (31.0-37.0) g/dL RDW 15.5 (11.5-15.5) % Plt Count 203 (150-450) k/uL MPV 8.6 Neutrophils % 74 % Lymphocytes % 19 % Monocytes % 4 % Eosinophils % 3 % Basophils % 0 % Neutrophils # 6.0 (1.3-7.7) k/uL Lymphocytes # 1.5 (1.0-4.8) k/uL Monocytes # 0.3 (0-1.0) k/uL Eosinophils # 0.2 (0-0.7) k/uL Basophils # 0.0 (0-0.2) k/uL Sodium (137-145) mmol/L Potassium (3.5-5.1) mmol/L Chloride (98-107) mmol/L Carbon Dioxide (22-30) mmol/L Anion Gap mmol/L BUN (7-17) mg/dL Creatinine (0.52-1.04) mg/dL Est GFR (CKD-EPI)AfAm (>60 ml/min/1.73 sqM) Est GFR (CKD-EPI)NonAf (>60 ml/min/1.73 sqM) Glucose (74-99) mg/dL Calcium (8.4-10.2) mg/dL Total Bilirubin (0.2-1.3) mg/dL AST (14-36) U/L ALT (4-34) U/L Alkaline Phosphatase (38-126) U/L Total Protein (6.3-8.2) g/dL Albumin (3.5-5.0) g/dL HCG, Quant mIU/mL Urine Color Yellow Urine Appearance Cloudy H (Clear) Urine pH 6.0 (5.0-8.0) Ur Specific [place] 1.027 (1.001-1.035) Urine Protein Trace H (Negative) Urine Glucose (UA) Negative (Negative) Urine Ketones Negative (Negative) Urine Blood Trace H (Negative) Urine Nitrite Negative (Negative) Urine Bilirubin Negative (Negative) Urine Urobilinogen <2.0 (<2.0) mg/dL Ur Leukocyte Esterase Large H (Negative) Urine RBC 5 (0-5) /hpf Urine WBC 21 H (0-5) /hpf Ur Squamous Epith Cells 27 H (0-4) /hpf Urine Bacteria Occasional H (None) /hpf Urine Mucus Moderate H (None) /hpf Urine HCG, Qual Not Detected (Not Detectd) Trichomonas Ag (Rapid) (Negative) Blood Type Blood Type Recheck Bld Type Recheck Status 11/27/20 11/27/20 11/27/20 Range/Units 15:25 15:25 16:10 WBC (3.8-10.6) k/uL RBC (3.80-5.40) m/uL Hgb (11.4-16.0) gm/dL Hct (34.0-46.0) % MCV (80.0-100.0) fL MCH (25.0-35.0) pg MCHC (31.0-37.0) g/dL RDW (11.5-15.5) % Plt Count (150-450) k/uL MPV Neutrophils % % Lymphocytes % % Monocytes % % Eosinophils % % Basophils % % Neutrophils # (1.3-7.7) k/uL Lymphocytes # (1.0-4.8) k/uL Monocytes # (0-1.0) k/uL Eosinophils # (0-0.7) k/uL Basophils # (0-0.2) k/uL Sodium 140 (137-145) mmol/L Potassium 4.1 (3.5-5.1) mmol/L Chloride 106 (98-107) mmol/L Carbon Dioxide 27 (22-30) mmol/L Anion Gap 7 mmol/L BUN 12 (7-17) mg/dL Creatinine 0.69 (0.52-1.04) mg/dL Est GFR (CKD-EPI)AfAm >90 (>60 ml/min/1.73 sqM) Est GFR (CKD-EPI)NonAf >90 (>60 ml/min/1.73 sqM) Glucose 88 (74-99) mg/dL Calcium 8.6 (8.4-10.2) mg/dL Total Bilirubin 0.4 (0.2-1.3) mg/dL AST 20 (14-36) U/L ALT 20 (4-34) U/L Alkaline Phosphatase 94 (38-126) U/L Total Protein 6.8 (6.3-8.2) g/dL Albumin 4.0 (3.5-5.0) g/dL HCG, Quant <2.4 mIU/mL Urine Color Urine Appearance (Clear) Urine pH (5.0-8.0) Ur Specific [place] (1.001-1.035) Urine Protein (Negative) Urine Glucose (UA) (Negative) Urine Ketones (Negative) Urine Blood (Negative) Urine Nitrite (Negative) Urine Bilirubin (Negative) Urine Urobilinogen (<2.0) mg/dL Ur Leukocyte Esterase (Negative) Urine RBC (0-5) /hpf Urine WBC (0-5) /hpf Ur Squamous Epith Cells (0-4) /hpf Urine Bacteria (None) /hpf Urine Mucus (None) /hpf Urine HCG, Qual (Not Detectd) Trichomonas Ag (Rapid) Negative (Negative) Blood Type O Positive Blood Type Recheck O Pos Bld Type Recheck Status No Disposition Clinical Impression: Vaginal bleeding Disposition: HOME SELF-CARE Condition: Good Additional Instructions: Please follow up with primary care and [facility]. Take Motrin for pain. Return to the emergency room for any worsening symptoms such as severe bleeding. Is patient prescribed a controlled substance at d/c from ED?: No Referrals: Mi Unger MD [Primary Care Provider] - 1-2 days Time of Disposition: 17:16
[2020-11-27 15:48] LABS: Basophils % (A) 0 %; Eosinophils # (A) 0.2 k/uL (0-0.7); Eosinophils % (A) 3 %; HCT 42.7 % (34.0-46.0); HGB 13.9 gm/dL (11.4-16.0); Lymphocytes # (A) 1.5 k/uL (1.0-4.8); Lymphocytes % (A) 19 %; MCH 28.3 pg (25.0-35.0); MCHC 32.5 g/dL (31.0-37.0); MCV 87.1 fL (80.0-100.0); Mean Platelet Volume 8.6; Monocytes # (A) 0.3 k/uL (0-1.0); Monocytes % (A) 4 %; Neutrophils % (A) 74 %; Platelet Count 203 k/uL (150-450); RDW 15.5 % (11.5-15.5); WBC 8.2 k/uL (3.8-10.6)
[2020-11-27 15:49] VITALS: PULSE 82
[2020-11-27 15:56] LABS: Appearance,Urine Cloudy (Clear); Bacteria,Urine Occasional /hpf; Bilirubin,Urine Negative (Negative); Blood,Urine Trace (Negative); Color,Urine Yellow; Glucose,Urine (UA) Negative (Negative); Ketones,Urine Negative (Negative); Leukocyte Esterase,Urine Large (Negative); Mucus,Urine Moderate /hpf; Nitrite,Urine Negative (Negative); Protein,Urine Trace (Negative); RBC,Urine 5 /hpf (0-5); Specific Gravity,Urine 1.027 (1.001-1.035); Squamous Epithelial Cell,Urine 27 /hpf (0-4); Urobilinogen,Urine <2.0 mg/dL (<2.0); WBC,Urine 21 /hpf (0-5)
[2020-11-27 16:41] LABS: ALT 20 U/L (4-34); AST 20 U/L (14-36); African American GFR (CKD) >90 (>60 ml/min/1.73 sqM); Alkaline Phosphatase 94 U/L (38-126); Anion Gap 7 mmol/L; Blood Urea Nitrogen 12 mg/dL (7-17); Calcium 8.6 mg/dL (8.4-10.2); Carbon Dioxide 27 mmol/L (22-30); Chloride 106 mmol/L (98-107); Glucose 88 mg/dL (74-99); Non-African American GFR(CKD) >90 (>60 ml/min/1.73 sqM); Potassium 4.1 mmol/L (3.5-5.1); Sodium 140 mmol/L (137-145); Total Bilirubin 0.4 mg/dL (0.2-1.3); Total Protein 6.8 g/dL (6.3-8.2)
[2020-11-27 16:58] LABS: HCG,Quantitative Serum <2.4 mIU/mL
[2020-11-27 17:37] VITALS: BP 128/71; TEMP 97.9
== END 2020-11-27 17:30 | disposition home or self-care (01) ==
LOC: EC 14:19
DX: N93.9 Abnormal uterine and vaginal bleeding, unspecified (principal); Z32.02 Encounter for pregnancy test, result negative; Z88.2 Allergy status to sulfonamides; Z91.010 Allergy to peanuts; Z91.018 Allergy to other foods
CPT/HCPCS: 36415; 80053; 81001; 81025; 84702; 85025; 86900; 86901; 87070; 87086; 87491; 87591; 87808; 96360; 99284

== ENCOUNTER 2021-01-03 11:49 | Emergency (ER) | payer OTHER ==
[2021-01-03 11:57] VITALS: TEMP 97.9
[2021-01-03] MEDS ORDERED: SODIUM CHLORIDE 0.9% 500 ML 500 ML IV STA (13:36)
--- NOTE | 2021-01-03 13:57 | ED ---
General Adult HPI - General Chief complaint: Abdominal Pain Stated complaint: Abd pain Time Seen by Provider: 01/03/21 13:28 Source: patient, RN notes reviewed, old records reviewed Mode of arrival: wheelchair Limitations: no limitations - History of Present Illness Initial comments: 25-year-old female presenting for evaluation of lower abdominal pain. Pain began early this morning. This woke patient from sleep. This was lower bilateral abdominal pain. There is no associated dysuria or hematuria. Patient did have some spotting. She is uncertain if she is . Stating that she's had several abnormal episodes of vaginal bleeding over the past one month. She states she had a normal bowel movement within the past 24 hours. No vomiting. No fever. - Related Data Previous Rx's Medication Instructions Recorded Cephalexin [Keflex] 500 mg PO Q12HR #20 cap 01/03/21 Allergies Allergy/AdvReac Type Severity Reaction Status Date / Time nut - unspecified Allergy Anaphylaxis Verified 01/03/21 13:54 peanut Allergy Anaphylaxis Verified 01/03/21 13:54 Sulfa (Sulfonamide Allergy Rash/Hives Verified 01/03/21 13:54 Antibiotics) tree nut [Nut] Allergy Anaphylaxis Verified 01/03/21 13:54 Review of Systems ROS Statement: Those systems with pertinent positive or pertinent negative responses have been documented in the HPI. ROS Other: All systems not noted in ROS Statement are negative. Past Medical History Past Medical History: Seizure Disorder, Thyroid Disorder Additional Past Medical History / Comment(s): cerebral palsy, gullian barre in 2010, multiple miscarriages, History of Any Multi-Drug Resistant Organisms: None Reported Past Surgical History: No Surgical Hx Reported Additional Past Surgical History / Comment(s): no reported hx Past Anesthesia/Blood Transfusion Reactions: No Reported Reaction Additional Past Anesthesia/Blood Transfusion Reaction / Comment(s): FATHER- TA KES LONGER TO WAKE UP WITH ANESTHESIA" Past Psychological History: Anxiety, Bipolar Smoking Status: Never smoker Past Alcohol Use History: None Reported Past Drug Use History: None Reported - Past Family History Mother Family Medical History: Diabetes Mellitus, Hypertension, Seizure Disorder, Supraventricular Tachycardia (SVT) Additional Family Medical History / Comment(s): SVT Father History Unknown: Yes General Exam Limitations: no limitations General appearance: alert, in no apparent distress Head exam: Present: atraumatic, normocephalic Eye exam: Present: normal appearance, PERRL ENT exam: Present: mucous membranes dry Neck exam: Present: normal inspection. Absent: tenderness, meningismus Respiratory exam: Present: normal lung sounds bilaterally. Absent: respiratory distress, wheezes Cardiovascular Exam: Present: regular rate, normal rhythm GI/Abdominal exam: Present: soft, tenderness (Bilateral lower abdominal tenderness). Absent: distended Extremities exam: Present: normal inspection, normal capillary refill. Absent: pedal edema, calf tenderness Neurological exam: Present: alert, oriented X3, CN II-XII intact. Absent: motor sensory deficit Psychiatric exam: Present: normal affect, normal mood Skin exam: Present: warm, dry, intact. Absent: cyanosis, diaphoretic Course Vital Signs 01/03/21 11:55 Temperature 97.9 F Pulse Rate 104 H Respiratory 16 Rate Blood Pressure 109/70 O2 Sat by Pulse 96 Oximetry Medical Decision Making - Medical Decision Making 25-year-old female presenting with lower abdominal pain. Minimal vaginal bleeding. Patient is not , she has mild leukocytosis, no anemia. Normal CMP. Ultrasound performed of the pelvis, which shows trace fluid with no other acute abnormalities. Patient's given Toradol and on reevaluation is feeling completely better. She is eager for discharge. She's given return parameters and will follow-up with her primary care physician. - Lab Data Result diagrams: 01/03/21 13:48 01/03/21 13:48 Lab Results 01/03/21 01/03/21 01/03/21 Range/Units 13:48 13:48 13:48 WBC 12.9 H (3.8-10.6) k/uL RBC 4.94 (3.80-5.40) m/uL Hgb 14.4 (11.4-16.0) gm/dL Hct 43.0 (34.0-46.0) % MCV 87.2 (80.0-100.0) fL MCH 29.1 (25.0-35.0) pg MCHC 33.4 (31.0-37.0) g/dL RDW 15.1 (11.5-15.5) % Plt Count 273 (150-450) k/uL MPV 8.3 Neutrophils % 78 % Lymphocytes % 16 % Monocytes % 4 % Eosinophils % 1 % Basophils % 0 % Neutrophils # 10.0 H (1.3-7.7) k/uL Lymphocytes # 2.1 (1.0-4.8) k/uL Monocytes # 0.5 (0-1.0) k/uL Eosinophils # 0.1 (0-0.7) k/uL Basophils # 0.0 (0-0.2) k/uL PT 9.6 (9.0-12.0) sec INR 0.9 (<1.2) APTT 26.8 (22.0-30.0) sec Sodium (137-145) mmol/L Potassium (3.5-5.1) mmol/L Chloride (98-107) mmol/L Carbon Dioxide (22-30) mmol/L Anion Gap mmol/L BUN (7-17) mg/dL Creatinine (0.52-1.04) mg/dL Est GFR (CKD-EPI)AfAm (>60 ml/min/1.73 sqM) Est GFR (CKD-EPI)NonAf (>60 ml/min/1.73 sqM) Glucose (74-99) mg/dL Plasma Lactic Acid [place] (0.7-2.0) mmol/L Calcium (8.4-10.2) mg/dL Total Bilirubin (0.2-1.3) mg/dL AST (14-36) U/L ALT (4-34) U/L Alkaline Phosphatase (38-126) U/L Total Protein (6.3-8.2) g/dL Albumin (3.5-5.0) g/dL Amylase (30-110) U/L Lipase (23-300) U/L Urine Color Yellow Urine Appearance Cloudy H (Clear) Urine pH 8.0 (5.0-8.0) Ur Specific [place] 1.021 (1.001-1.035) Urine Protein Trace H (Negative) Urine Glucose (UA) Negative (Negative) Urine Ketones Negative (Negative) Urine Blood Negative (Negative) Urine Nitrite Negative (Negative) Urine Bilirubin Negative (Negative) Urine Urobilinogen <2.0 (<2.0) mg/dL Ur Leukocyte Esterase Moderate H (Negative) Urine RBC 2 (0-5) /hpf Urine WBC 19 H (0-5) /hpf Ur Squamous Epith Cells 10 H (0-4) /hpf Urine Bacteria Moderate H (None) /hpf Urine Mucus Rare H (None) /hpf Urine HCG, Qual (Not Detectd) 01/03/21 01/03/21 01/03/21 Range/Units 13:48 13:48 13:48 WBC (3.8-10.6) k/uL RBC (3.80-5.40) m/uL Hgb (11.4-16.0) gm/dL Hct (34.0-46.0) % MCV (80.0-100.0) fL MCH (25.0-35.0) pg MCHC (31.0-37.0) g/dL RDW (11.5-15.5) % Plt Count (150-450) k/uL MPV Neutrophils % % Lymphocytes % % Monocytes % % Eosinophils % % Basophils % % Neutrophils # (1.3-7.7) k/uL Lymphocytes # (1.0-4.8) k/uL Monocytes # (0-1.0) k/uL Eosinophils # (0-0.7) k/uL Basophils # (0-0.2) k/uL PT (9.0-12.0) sec INR (<1.2) APTT (22.0-30.0) sec Sodium 137 (137-145) mmol/L Potassium 4.1 (3.5-5.1) mmol/L Chloride 100 (98-107) mmol/L Carbon Dioxide 28 (22-30) mmol/L Anion Gap 9 mmol/L BUN 12 (7-17) mg/dL Creatinine 0.72 (0.52-1.04) mg/dL Est GFR (CKD-EPI)AfAm >90 (>60 ml/min/1.73 sqM) Est GFR (CKD-EPI)NonAf >90 (>60 ml/min/1.73 sqM) Glucose 87 (74-99) mg/dL Plasma Lactic Acid [place] 0.8 (0.7-2.0) mmol/L Calcium 9.3 (8.4-10.2) mg/dL Total Bilirubin 0.5 (0.2-1.3) mg/dL AST 25 (14-36) U/L ALT 24 (4-34) U/L Alkaline Phosphatase 111 (38-126) U/L Total Protein 7.7 (6.3-8.2) g/dL Albumin 4.6 (3.5-5.0) g/dL Amylase 60 (30-110) U/L Lipase 50 (23-300) U/L Urine Color Urine Appearance (Clear) Urine pH (5.0-8.0) Ur Specific [place] (1.001-1.035) Urine Protein (Negative) Urine Glucose (UA) (Negative) Urine Ketones (Negative) Urine Blood (Negative) Urine Nitrite (Negative) Urine Bilirubin (Negative) Urine Urobilinogen (<2.0) mg/dL Ur Leukocyte Esterase (Negative) Urine RBC (0-5) /hpf Urine WBC (0-5) /hpf Ur Squamous Epith Cells (0-4) /hpf Urine Bacteria (None) /hpf Urine Mucus (None) /hpf Urine HCG, Qual Not Detected (Not Detectd) Disposition Clinical Impression: Abdominal pain, UTI (urinary tract infection) Disposition: ADMITTED IP TO THIS HOSP Condition: Stable Instructions (If sedation given, give patient instructions): Abdominal Pain (ED) Prescriptions: Cephalexin [Keflex] 500 mg PO Q12HR #20 cap Is patient prescribed a controlled substance at d/c from ED?: No Referrals: Mi Unger MD [Primary Care Provider] - 1-2 days Time of Disposition: 16:17
[2021-01-03 14:25] LABS: Basophils % (A) 0 %; Eosinophils # (A) 0.1 k/uL (0-0.7); Eosinophils % (A) 1 %; HGB 14.4 gm/dL (11.4-16.0); Lymphocytes # (A) 2.1 k/uL (1.0-4.8); Lymphocytes % (A) 16 %; MCH 29.1 pg (25.0-35.0); MCHC 33.4 g/dL (31.0-37.0); MCV 87.2 fL (80.0-100.0); Mean Platelet Volume 8.3; Monocytes # (A) 0.5 k/uL (0-1.0); Monocytes % (A) 4 %; Neutrophils % (A) 78 %; Platelet Count 273 k/uL (150-450); RBC 4.94 m/uL (3.80-5.40); RDW 15.1 % (11.5-15.5); WBC 12.9 k/uL (3.8-10.6)
[2021-01-03 14:36] LABS: Appearance,Urine Cloudy (Clear); Bacteria,Urine Moderate /hpf; Bilirubin,Urine Negative (Negative); Blood,Urine Negative (Negative); Color,Urine Yellow; Glucose,Urine (UA) Negative (Negative); Ketones,Urine Negative (Negative); Leukocyte Esterase,Urine Moderate (Negative); Mucus,Urine Rare /hpf; Nitrite,Urine Negative (Negative); Protein,Urine Trace (Negative); RBC,Urine 2 /hpf (0-5); Specific Gravity,Urine 1.021 (1.001-1.035); Squamous Epithelial Cell,Urine 10 /hpf (0-4); Urobilinogen,Urine <2.0 mg/dL (<2.0); WBC,Urine 19 /hpf (0-5)
[2021-01-03 14:41] LABS: ALT 24 U/L (4-34); AST 25 U/L (14-36); African American GFR (CKD) >90 (>60 ml/min/1.73 sqM); Albumin 4.6 g/dL (3.5-5.0); Alkaline Phosphatase 111 U/L (38-126); Amylase 60 U/L (30-110); Anion Gap 9 mmol/L; Blood Urea Nitrogen 12 mg/dL (7-17); Calcium 9.3 mg/dL (8.4-10.2); Carbon Dioxide 28 mmol/L (22-30); Chloride 100 mmol/L (98-107); Glucose 87 mg/dL (74-99); Lipase 50 U/L (23-300); Non-African American GFR(CKD) >90 (>60 ml/min/1.73 sqM); Sodium 137 mmol/L (137-145); Total Bilirubin 0.5 mg/dL (0.2-1.3); Total Protein 7.7 g/dL (6.3-8.2)
[2021-01-03 14:43] LABS: INR 0.9 (<1.2); Partial Thromboplastin Time 26.8 sec (22.0-30.0); Prothrombin Time 9.6 sec (9.0-12.0)
[2021-01-03] MEDS ORDERED: KETOROLAC 15 MG/ML 1 ML VIAL IVP STA (14:46)
[2021-01-03 15:13] LABS: Potassium 4.1 mmol/L (3.5-5.1)
--- NOTE | 2021-01-03 16:00 | US ---
EXAMINATION TYPE: US pelvic complete DATE OF EXAM: 01/03/2021 COMPARISON: 09/29/2020 CLINICAL HISTORY: pelvic pain. Pt states generalized pelvic pain x 1 day, abnormal menses TECHNIQUE: Transvaginal (TV). Transvaginal sonographic images of the pelvis were acquired. Date of LMP: 12/27/2020 EXAM MEASUREMENTS: Uterus: 9.1 x 4.4 x 5.5 cm Endometrial Stripe: 1.0 cm Right Ovary: 3.2 x 2.2 x 2.6 cm Left Ovary: 3.4 x 2.3 x 2.1 cm 1. Uterus: Anteverted Multiple Nabothian cysts in cervix 2. Endometrium: wnl 3. Right Ovary: wnl, follicles 4. Left Ovary: wnl, follicles Spectral, color and waveform doppler imaging shows good arterial and venous flow within the ovaries ; there is no evidence for ovarian torsion. 5. Bilateral Adnexa: wnl 6. Posterior cul-de-sac: Very small amount of free fluid IMPRESSION: 1. Small amount of free fluid in the pelvis.
[2021-01-03 16:27] VITALS: BP 136/71; PULSE 87; RESP 18
== END 2021-01-03 16:27 | disposition other institution (70) ==
LOC: EC 11:49
DX: N39.0 Urinary tract infection, site not specified (principal); N93.9 Abnormal uterine and vaginal bleeding, unspecified; F41.9 Anxiety disorder, unspecified; F31.9 Bipolar disorder, unspecified; G40.909 Epilepsy, unspecified, not intractable, without status epilepticus; G80.9 Cerebral palsy, unspecified
CPT/HCPCS: 36415; 80053; 82150; 83605; 83690; 85025; 85610; 85730; 81001; 81025; 87086; 93975; 76830; 99285; 96374; J1885

== ENCOUNTER 2021-02-26 10:06 | Emergency (ER) | payer OTHER ==
[2021-02-26 10:26] VITALS: BP 139/95; PULSE 82; RESP 18; TEMP 98.2
[2021-02-26] MEDS ORDERED: ONDANSETRON ODT 4 MG TAB PO STA (10:36)
[2021-02-26 10:58] LABS: Appearance,Urine Clear (Clear); Bacteria,Urine Rare /hpf; Bilirubin,Urine Negative (Negative); Blood,Urine Negative (Negative); Color,Urine Light Yellow; Glucose,Urine (UA) Negative (Negative); Ketones,Urine Negative (Negative); Leukocyte Esterase,Urine Moderate (Negative); Nitrite,Urine Negative (Negative); PH, Urine 7.5 (5.0-8.0); Protein,Urine Negative (Negative); RBC,Urine 2 /hpf (0-5); Specific Gravity,Urine 1.016 (1.001-1.035); Squamous Epithelial Cell,Urine 2 /hpf (0-4); Urobilinogen,Urine <2.0 mg/dL (<2.0); WBC,Urine 2 /hpf (0-5)
--- NOTE | 2021-02-26 11:22 | ED ---
Nausea/Vomiting/Diarrhea HPI - General Chief complaint: Nausea/Vomiting/Diarrhea Stated complaint: N/V, sore throat Time Seen by Provider: 02/26/21 10:21 Source: patient, RN notes reviewed Mode of arrival: ambulatory Limitations: no limitations - History of Present Illness Initial comments: 25-year-old female presents emergency Department chief complaint of just not feeling well. Patient states that she is some urinary frequency, nausea vomiting. Patient has no severe abdominal pain she states she is on some sick people in which she is concerned she may have gotten sick from. Patient denies any chance or diarrhea no constipation denies any chest pain or shortness of breath patient has no flank pain no other associated symptoms - Related Data Previous Rx's Medication Instructions Recorded Cephalexin [Keflex] 500 mg PO Q12HR #20 cap 01/03/21 Ondansetron Odt [Zofran Odt] 4 mg PO Q8HR PRN #10 tab 02/26/21 Allergies Allergy/AdvReac Type Severity Reaction Status Date / Time nut - unspecified Allergy Anaphylaxis Verified 02/26/21 10:25 peanut Allergy Anaphylaxis Verified 02/26/21 10:25 Sulfa (Sulfonamide Allergy Rash/Hives Verified 02/26/21 10:25 Antibiotics) tree nut [Nut] Allergy Anaphylaxis Verified 02/26/21 10:25 Review of Systems ROS Statement: Those systems with pertinent positive or pertinent negative responses have been documented in the HPI. ROS Other: All systems not noted in ROS Statement are negative. Past Medical History Past Medical History: Seizure Disorder, Thyroid Disorder Additional Past Medical History / Comment(s): cerebral palsy, gullian barre in 2010, multiple miscarriages, History of Any Multi-Drug Resistant Organisms: None Reported Past Surgical History: No Surgical Hx Reported Additional Past Surgical History / Comment(s): no reported hx Past Anesthesia/Blood Transfusion Reactions: No Reported Reaction Additional Past Anesthesia/Blood Transfusion Reaction / Comment(s): FATHER- TAKES LONGER TO WAKE UP WITH ANESTHESIA" Past Psychological History: Anxiety, Bipolar Smoking Status: Never smoker Past Alcohol Use History: None Reported Past Drug Use History: None Reported - Past Family History Mother Family Medical History: Diabetes Mellitus, Hypertension, Seizure Disorder, [place] praventricular Tachycardia (SVT) Additional Family Medical History / Comment(s): SVT Father History Unknown: Yes General Exam Limitations: no limitations General appearance: alert, in no apparent distress Head exam: Present: atraumatic, normocephalic, normal inspection Eye exam: Present: normal appearance, PERRL, EOMI. Absent: scleral icterus, conjunctival injection, periorbital swelling ENT exam: Present: normal exam, normal oropharynx, mucous membranes moist Neck exam: Present: normal inspection, full ROM. Absent: tenderness, lymphadenopathy Respiratory exam: Present: normal lung sounds bilaterally. Absent: respiratory distress, wheezes, rales, rhonchi, stridor Cardiovascular Exam: Present: regular rate, normal rhythm, normal heart sounds. Absent: systolic murmur, diastolic murmur, rubs, gallop, clicks GI/Abdominal exam: Present: soft, normal bowel sounds. Absent: distended, tenderness, guarding, rebound, rigid Back exam: Absent: CVA tenderness (R), CVA tenderness (L) Neurological exam: Present: alert Skin exam: Present: warm, dry, intact, normal color. Absent: rash Course Vital Signs 02/26/21 10:18 Temperature 98.2 F Pulse Rate 82 Respiratory 18 Rate Blood Pressure 139/95 O2 Sat by Pulse 98 Oximetry Medical Decision Making - Medical Decision Making 25-year-old presented for been exposed to sick people, not feeling well urinalysis does not reveal any signs of infection, dehydration negative test. Patient did have a negative COVID-19 testing. Patient's improves his nausea meds. Patient we discharged stable condition return parameters were discussed. - Lab Data Lab Results 02/26/21 02/26/21 02/26/21 Range/Units 10:26 10:26 10:39 Urine Color Light Yellow Urine Appearance Clear (Clear) Urine pH 7.5 (5.0-8.0) Ur Specific [place] 1.016 (1.001-1.035) Urine Protein Negative (Negative) Urine Glucose (UA) Negative (Negative) Urine Ketones Negative (Negative) Urine Blood Negative (Negative) Urine Nitrite Negative (Negative) Urine Bilirubin Negative (Negative) Urine Urobilinogen <2.0 (<2.0) mg/dL Ur Leukocyte Esterase Moderate H (Negative) Urine RBC 2 (0-5) /hpf Urine WBC 2 (0-5) /hpf Ur Squamous Epith Cells 2 (0-4) /hpf Urine Bacteria Rare H (None) /hpf Urine HCG, Qual Not Detected (Not Detectd) Coronavirus (PCR) Not Detected (Not Detectd) Disposition Clinical Impression: Urinary frequency, Viral illness, Nausea & vomiting Disposition: HOME SELF-CARE Instructions (If sedation given, give patient instructions): Acute Nausea and Vomiting (ED) Additional Instructions: Please return to the Emergency Department if symptoms worsen or any other corey rns. Prescriptions: Ondansetron Odt [Zofran Odt] 4 mg PO Q8HR PRN #10 tab PRN Reason: Nausea Is patient prescribed a controlled substance at d/c from ED?: No Referrals: Mi Unger MD [Primary Care Provider] - 1-2 days Time of Disposition: 11:40
== END 2021-02-26 11:51 | disposition home or self-care (01) ==
LOC: EC 10:06
DX: N39.0 Urinary tract infection, site not specified (principal); B34.9 Viral infection, unspecified; R11.2 Nausea with vomiting, unspecified
CPT/HCPCS: 81001; 81025; 87635; 99284

== ENCOUNTER 2021-05-31 17:02 | Emergency (ER) | payer OTHER ==
[2021-05-31 17:18] LABS: Glucose,Whole Blood 112 mg/dL (75-99)
[2021-05-31] MEDS ORDERED: SODIUM CHLORIDE 0.9% 1,000 ML IV STA (18:50)
[2021-05-31 19:13] LABS: Basophils % (A) 0 %; Eosinophils # (A) 0.2 k/uL (0-0.7); Eosinophils % (A) 2 %; HCT 41.7 % (34.0-46.0); HGB 14.1 gm/dL (11.4-16.0); Lymphocytes % (A) 28 %; MCH 30.4 pg (25.0-35.0); MCHC 33.7 g/dL (31.0-37.0); MCV 90.2 fL (80.0-100.0); Mean Platelet Volume 8.9; Monocytes # (A) 0.4 k/uL (0-1.0); Monocytes % (A) 6 %; Neutrophils # (A) 4.4 k/uL (1.3-7.7); Neutrophils % (A) 62 %; Platelet Count 234 k/uL (150-450); RBC 4.63 m/uL (3.80-5.40); RDW 15.1 % (11.5-15.5); WBC 7.1 k/uL (3.8-10.6)
[2021-05-31 19:18] LABS: Appearance,Urine Cloudy (Clear); Bacteria,Urine Rare /hpf; Bilirubin,Urine Negative (Negative); Blood,Urine Negative (Negative); Budding Yeast,Urine Occasional /hpf; Color,Urine Yellow; Glucose,Urine (UA) Negative (Negative); Hyaline Casts,Urine 1 /lpf (0-2); Ketones,Urine Negative (Negative); Leukocyte Esterase,Urine Large (Negative); Mucus,Urine Few /hpf; Nitrite,Urine Negative (Negative); Protein,Urine 1+ (Negative); RBC,Urine 4 /hpf (0-5); Specific Gravity,Urine 1.028 (1.001-1.035); Squamous Epithelial Cell,Urine 13 /hpf (0-4); WBC,Urine 12 /hpf (0-5)
[2021-05-31 19:24] LABS: ALT 27 U/L (4-34); AST 27 U/L (14-36); African American GFR (CKD) >90 (>60 ml/min/1.73 sqM); Albumin 4.3 g/dL (3.5-5.0); Alkaline Phosphatase 105 U/L (38-126); Anion Gap 9 mmol/L; Blood Urea Nitrogen 13 mg/dL (7-17); Calcium 9.3 mg/dL (8.4-10.2); Carbon Dioxide 26 mmol/L (22-30); Chloride 104 mmol/L (98-107); Glucose 91 mg/dL (74-99); Non-African American GFR(CKD) >90 (>60 ml/min/1.73 sqM); Potassium 3.9 mmol/L (3.5-5.1); Sodium 139 mmol/L (137-145); Total Bilirubin 0.3 mg/dL (0.2-1.3)
--- NOTE | 2021-05-31 19:59 | ED ---
General Adult HPI - General Chief complaint: Dizziness Stated complaint: feels like a seizure is going to start Time Seen by Provider: 05/31/21 18:17 Source: patient Mode of arrival: ambulatory Limitations: no limitations - History of Present Illness Initial comments: Patient is a 25-year-old female with history of epilepsy, presenting to the emergency department with complaint of "feeling like she may have a seizure." She states that starting this morning she felt a little shaky a little lightheaded. She remembers feeling this way the last time she had a seizure. She has not had a seizure in over 10 years, she is not currently on any medications. She does follow with Dr. Siegel. Patient denies any chest pain or shortness of breath, no abdominal pain, no nausea or vomiting. She states no recent fevers or cough. No dysuria. She otherwise has no further complaints. Upon arrival to the ER her vitals are stable, and glucose is 112 in triage. - Related Data Previous Rx's Medication Instructions Recorded Cephalexin [Keflex] 500 mg PO Q12HR #20 cap 01/03/21 Ondansetron Odt [Zofran Odt] 4 mg PO Q8HR PRN #10 tab 02/26/21 Allergies Allergy/AdvReac Type Severity Reaction Status Date / Time nut - unspecified Allergy Anaphylaxis Verified 05/31/21 17:22 peanut Allergy Anaphylaxis Verified 05/31/21 17:22 Sulfa (Sulfonamide Allergy Rash/Hives Verified 05/31/21 17:22 Antibiotics) tree nut [Nut] Allergy Anaphylaxis Verified 05/31/21 17:22 Review of Systems ROS Statement: Those systems with pertinent positive or pertinent negative responses have been documented in the HPI. ROS Other: All systems not noted in ROS Statement are negative. Past Medical History Past Medical History: Seizure Disorder, Thyroid Disorder Additional Past Medical History / Comment(s): cerebral palsy, gullian barre in 2011, multiple miscarriages, History of Any Multi-Drug Resistant Organisms: None Reported Past Surgical History: No Surgical Hx Reported Additional Past Surgical History / Comment(s): no reported hx Past Anesthesia/Blood Transfusion Reactions: No Reported Reaction Additional Past Anesthesia/Blood Transfusion Reaction / Comment(s): FATHER- TAKES LONGER TO WAKE UP WITH ANESTHESIA" Past Psychological History: Anxiety, Bipolar Smoking Status: Never smoker Past Alcohol Use History: None Reported Past Drug Use History: None Reported - Past Family History Mother Family Medical History: Diabetes Mellitus, Hypertension, Seizure Disorder, Supraventricular Tachycardia (SVT) Additional Family Medical History / Comment(s): SVT Father History Unknown: Yes General Exam - General Exam Comments Initial Comments: GENERAL: Patient is well-developed and well-nourished. Patient is nontoxic and in no acute distress. HEAD: Atraumatic, normocephalic. EYES: Pupils equal round and reactive to light, extraocular movements intact, sclera anicteric, conjunctiva are normal. Eyelids were unremarkable. ENT: Nares patent, oropharynx clear without exudates. Moist mucous membranes. NECK: Normal range of motion, supple without lymphadenopathy or JVD. LUNGS: Unlabored respirations. Breath sounds clear to auscultation bilaterally and equal. No wheezes rales or rhonchi. HEART: Regular rate and rhythm without murmurs, rubs or gallops. ABDOMEN: Soft, nontender, normoactive bowel sounds. No guarding, no rebound. No masses appreciated. : Deferred MUSCULOSKELETAL: Normal extremities with adequate strength and normal range of motion, no pitting or edema. No clubbing or cyanosis. NEUROLOGICAL: Patient is alert and oriented x 3. Motor and sensory are also intact. Cranial nerves II through XII grossly intact. Symmetrical smile. Normal speech, normal gait. PSYCH: Normal mood, normal affect. SKIN: Warm, Dry, normal turgor, no rashes or lesions noted. Limitations: no limitations Course Vital Signs 05/31/21 17:16 Temperature 97.8 F Pulse Rate 82 Respiratory 17 Rate Blood Pressure 109/81 O2 Sat by Pulse 97 Oximetry EKG Findings - EKG Comments: EKG Findings:: Normal sinus rhythm, nonspecific T-wave abnormalities, prolonged QT, similar to previous on 10/21/2020. This is acute ST segment elevation. Ventricular rate 79, IA interval 178, QTC 430. Medical Decision Making - Medical Decision Making Patient is a 25-year-old female with history of epilepsy, presenting for feeling like she may have a seizure since this morning. She is complaining of feeling shaky, some mild lightheadedness. She has not had a seizure in 10 years, she has not on any medications, she does follow with Dr. Siegel. Her vitals are stable upon arrival. EKG showed no acute process. Patient's lab work is unremarkable including a normal troponin and TSH. Urine shows no signs of infection, a she is not detected. She was given some fluids. She has been stable here in the ER. I discussed these findings with her, recommended fo llowing up with her neurologist. She is agreeable to this. She is stable for discharge. Return parameters were discussed with her and she verbalized understanding. Case discussed with Dr. Smith. - Lab Data Result diagrams: 05/31/21 18:57 05/31/21 18:57 Lab Results 05/31/21 05/31/21 05/31/21 Range/Units 17:17 18:57 18:57 WBC 7.1 (3.8-10.6) k/uL RBC 4.63 (3.80-5.40) m/uL Hgb 14.1 (11.4-16.0) gm/dL Hct 41.7 (34.0-46.0) % MCV 90.2 (80.0-100.0) fL MCH 30.4 (25.0-35.0) pg MCHC 33.7 (31.0-37.0) g/dL RDW 15.1 (11.5-15.5) % Plt Count 234 (150-450) k/uL MPV 8.9 Neutrophils % 62 % Lymphocytes % 28 % Monocytes % 6 % Eosinophils % 2 % Basophils % 0 % Neutrophils # 4.4 (1.3-7.7) k/uL Lymphocytes # 2.0 (1.0-4.8) k/uL Monocytes # 0.4 (0-1.0) k/uL Eosinophils # 0.2 (0-0.7) k/uL Basophils # 0.0 (0-0.2) k/uL Sodium (137-145) mmol/L Potassium (3.5-5.1) mmol/L Chloride (98-107) mmol/L Carbon Dioxide (22-30) mmol/L Anion Gap mmol/L BUN (7-17) mg/dL Creatinine (0.52-1.04) mg/dL Est GFR (CKD-EPI)AfAm (>60 ml/min/1.73 sqM) Est GFR (CKD-EPI)NonAf (>60 ml/min/1.73 sqM) Glucose (74-99) mg/dL POC Glucose (mg/dL) 112 H (75-99) mg/dL POC Glu [employer] ID Janet Dai Plasma Lactic Acid Milad (0.7-2.0) mmol/L Calcium (8.4-10.2) mg/dL Total Bilirubin (0.2-1.3) mg/dL AST (14-36) U/L ALT (4-34) U/L Alkaline Phosphatase (38-126) U/L Troponin I (0.000-0.034) ng/mL Total Protein (6.3-8.2) g/dL Albumin (3.5-5.0) g/dL TSH (0.465-4.680) mIU/L Urine Color Yellow Urine Appearance Cloudy H (Clear) Urine pH 7.0 (5.0-8.0) Ur Specific [place] 1.028 (1.001-1.035) Urine Protein 1+ H (Negative) Urine Glucose (UA) Negative (Negative) Urine Ketones Negative (Negative) Urine Blood Negative (Negative) Urine Nitrite Negative (Negative) Urine Bilirubin Negative (Negative) Urine Urobilinogen 2.0 (<2.0) mg/dL Ur Leukocyte Esterase Large H (Negative) Urine RBC 4 (0-5) /hpf Urine WBC 12 H (0-5) /hpf Ur Squamous Epith Cells 13 H (0-4) /hpf Urine Bacteria Rare H (None) /hpf Hyaline Casts 1 (0-2) /lpf Urine Mucus Few H (None) /hpf Urine Yeast (Budding) Occasional H (None) /hpf Urine HCG, Qual (Not Detectd) 05/31/21 05/31/21 05/31/21 Range/Units 18:57 18:57 18:57 WBC (3.8-10.6) k/uL RBC (3.80-5.40) m/uL Hgb (11.4-16.0) gm/dL Hct (34.0-46.0) % MCV (80.0-100.0) fL MCH (25.0-35.0) pg MCHC (31.0-37.0) g/dL RDW (11.5-15.5) % Plt Count (150-450) k/uL MPV Neutrophils % % Lymphocytes % % Monocytes % % Eosinophils % % Basophils % % Neutrophils # (1.3-7.7) k/uL Lymphocytes # (1.0-4.8) k/uL Monocytes # (0-1.0) k/uL Eosinophils # (0-0.7) k/uL Basophils # (0-0.2) k/uL Sodium 139 (137-145) mmol/L Potassium 3.9 (3.5-5.1) mmol/L Chloride 104 (98-107) mmol/L Carbon Dioxide 26 (22-30) mmol/L Anion Gap 9 mmol/L BUN 13 (7-17) mg/dL Creatinine 0.83 (0.52-1.04) mg/dL Est GFR (CKD-EPI)AfAm >90 (>60 ml/min/1.73 sqM) Est GFR (CKD-EPI)NonAf >90 (>60 ml/min/1.73 sqM) Glucose 91 (74-99) mg/dL POC Glucose (mg/dL) (75-99) mg/dL POC Glu [employer] ID Plasma Lactic Acid Milad 1.2 (0.7-2.0) mmol/L Calcium 9.3 (8.4-10.2) mg/dL Total Bilirubin 0.3 (0.2-1.3) mg/dL AST 27 (14-36) U/L ALT 27 (4-34) U/L Alkaline Phosphatase 105 (38-126) U/L Troponin I (0.000-0.034) ng/mL Total Protein 7.0 (6.3-8.2) g/dL Albumin 4.3 (3.5-5.0) g/dL TSH 1.980 (0.465-4.680) mIU/L Urine Color Urine Appearance (Clear) Urine pH (5.0-8.0) Ur Specific [place] (1.001-1.035) Urine Protein (Negative) Urine Glucose (UA) (Negative) Urine Ketones (Negative) Urine Blood (Negative) Urine Nitrite (Negative) Urine Bilirubin (Negative) Urine Urobilinogen (<2.0) mg/dL Ur Leukocyte Esterase (Negative) Urine RBC (0-5) /hpf Urine WBC (0-5) /hpf Ur Squamous Epith Cells (0-4) /hpf Urine Bacteria (None) /hpf Hyaline Casts (0-2) /lpf Urine Mucus (None) /hpf Urine Yeast (Budding) (None) /hpf Urine HCG, Qual Not Detected (Not Detectd) 05/31/21 Range/Units 18:57 WBC (3.8-10.6) k/uL RBC (3.80-5.40) m/uL Hgb (11.4-16.0) gm/dL Hct (34.0-46.0) % MCV (80.0-100.0) fL MCH (25.0-35.0) pg MCHC (31.0-37.0) g/dL RDW (11.5-15.5) % Plt Count (150-450) k/uL MPV Neutrophils % % Lymphocytes % % Monocytes % % Eosinophils % % Basophils % % Neutrophils # (1.3-7.7) k/uL Lymphocytes # (1.0-4.8) k/uL Monocytes # (0-1.0) k/uL Eosinophils # (0-0.7) k/uL Basophils # (0-0.2) k/uL Sodium (137-145) mmol/L Potassium (3.5-5.1) mmol/L Chloride (98-107) mmol/L Carbon Dioxide (22-30) mmol/L Anion Gap mmol/L BUN (7-17) mg/dL Creatinine (0.52-1.04) mg/dL Est GFR (CKD-EPI)AfAm (>60 ml/min/1.73 sqM) Est GFR (CKD-EPI)NonAf (>60 ml/min/1.73 sqM) Glucose (74-99) mg/dL POC Glucose (mg/dL) (75-99) mg/dL POC Glu [employer] ID Plasma Lactic Acid Milad (0.7-2.0) mmol/L Calcium (8.4-10.2) mg/dL Total Bilirubin (0.2-1.3) mg/dL AST (14-36) U/L ALT (4-34) U/L Alkaline Phosphatase (38-126) U/L Troponin I <0.012 (0.000-0.034) ng/mL Total Protein (6.3-8.2) g/dL Albumin (3.5-5.0) g/dL TSH (0.465-4.680) mIU/L Urine Color Urine Appearance (Clear) Urine pH (5.0-8.0) Ur Specific [place] (1.001-1.035) Urine Protein (Negative) Urine Glucose (UA) (Negative) Urine Ketones (Negative) Urine Blood (Negative) Urine Nitrite (Negative) Urine Bilirubin (Negative) Urine Urobilinogen (<2.0) mg/dL Ur Leukocyte Esterase (Negative) Urine RBC (0-5) /hpf Urine WBC (0-5) /hpf Ur Squamous Epith Cells (0-4) /hpf Urine Bacteria (None) /hpf Hyaline Casts (0-2) /lpf Urine Mucus (None) /hpf Urine Yeast (Budding) (None) /hpf Urine HCG, Qual (Not Detectd) Disposition Clinical Impression: Lightheadedness Disposition: HOME SELF-CARE Condition: Stable Instructions (If sedation given, give patient instructions): Normal Exam (ED) Additional Instructions: Please return to the Emergency Department if symptoms worsen or any other concerns. Continue to drink plenty of fluids, regular diet. Please follow up with your neurologist. Is patient prescribed a controlled substance at d/c from ED?: No Referrals: Mi Unger MD [Primary Care Provider] - 1-2 days Sherrie Siegel MD [Medical Doctor] - 1-2 days Time of Disposition: 20:24
[2021-05-31 21:07] VITALS: BP 137/88; PULSE 87; RESP 18; TEMP 98.7
== END 2021-05-31 21:06 | disposition home or self-care (01) ==
LOC: EC 17:02
DX: R42 Dizziness and giddiness (principal)
CPT/HCPCS: 36415; 80053; 81001; 81025; 83605; 84443; 84484; 85025; 87086; 93005; 96360; 99284

== ENCOUNTER → 2021-06-12 | Outpatient (CLI) | payer OTHER ==
[2021-06-12 12:50] LABS: Basophils % (A) 0 %; Eosinophils # (A) 0.1 k/uL (0-0.7); Eosinophils % (A) 2 %; HCT 45.7 % (34.0-46.0); HGB 14.5 gm/dL (11.4-16.0); Hypochromasia Slight; Lymphocytes # (A) 1.9 k/uL (1.0-4.8); Lymphocytes % (A) 28 %; MCH 29.3 pg (25.0-35.0); MCHC 31.7 g/dL (31.0-37.0); MCV 92.4 fL (80.0-100.0); Mean Platelet Volume 8.9; Monocytes # (A) 0.4 k/uL (0-1.0); Monocytes % (A) 5 %; Neutrophils # (A) 4.2 k/uL (1.3-7.7); Neutrophils % (A) 62 %; Platelet Count 239 k/uL (150-450); RBC 4.94 m/uL (3.80-5.40); RDW 15.1 % (11.5-15.5); WBC 6.8 k/uL (3.8-10.6)
== END | disposition home or self-care (01) ==
LOC: LABPAT 11:55
PROVIDERS: ATTEND Obstetrics & Gynecology
DX: Z01.812 Encounter for preprocedural laboratory examination (principal)
CPT/HCPCS: 36415; 85025

== ENCOUNTER 2021-06-29 09:27 | Day surgery (SDC) | payer OTHER ==
[2021-06-28 08:35] VITALS: BMI 39.6
--- NOTE | 2021-06-29 08:10 | P.HPOB ---
History of Present Illness H&P Date: 06/29/21 Chief Complaint: Dysfunctional uterine bleeding Patient is a 25-year-old female with dysfunctional uterine bleeding. She relates that bleeding initially was precipitated by intercourse and that each time after having sex or last several months she's had bleeding. Normal Pap is noted from December 2020. This is a new onset of symptoms. An ultrasound was done and showed a thickening of the endometrium she is therefore scheduled for a D&C with hysteroscopy. Risks/benefits/alternatives to this procedure were reviewed with the patient in detail and all questions were answered for her prior to proceeding to the operative room. Past Medical History Past Medical History: Seizure Disorder, Thyroid Disorder Additional Past Medical History / Comment(s): cerebral palsy, gullian barre in 2010, multiple miscarriages History of Any Multi-Drug Resistant Organisms: None Reported Past Surgical History: No Surgical Hx Reported Additional Past Surgical History / Comment(s): egd Past Anesthesia/Blood Transfusion Reactions: No Reported Reaction Additional Past Anesthesia/Blood Transfusion Reaction / Comment(s): FATHER- TAKES LONGER TO WAKE UP WITH ANESTHESIA". "takes longer to wake up" Smoking Status: Never smoker - Past Family History Mother Family Medical History: Diabetes Mellitus, Hypertension, Seizure Disorder, Supraventricular Tachycardia (SVT) Additional Family Medical History / Comment(s): SVT Father History Unknown: Yes Medications and Allergies Home Medications Medication Instructions Recorded Confirmed Type No Known Home Medications 06/28/21 06/28/21 History Allergies Allergy/AdvReac Type Severity Reaction Status Date / Time nut - unspecified Allergy Anaphylaxis Verified 06/28/21 08:28 peanut Allergy Anaphylaxis Verified 06/28/21 08:28 Sulfa (Sulfonamide Allergy Rash/Hives Verified 06/28/21 08:28 Antibiotics) tree nut [Nut] Allergy Anaphylaxis Verified 06/28/21 08:28 Exam Osteopathic Statement: *. No significant issues noted on an osteopathic structural exam other than those noted in the History and Physical/Consult. - OBG Physical Exam Breast: both: normal (no masses) Abdomen: bowel sounds normal, no diffuse tenderness, no bruit present, no guarding noted, no hepatomegaly, no splenomegaly, no mass Vulva: both: normal Vagina: normal moisture, no discharge Cervix: no lesion, no discharge Uterus: normal size, normal contour Adnexa: both: normal Anus/Rectum: normal perianal skin, no rectal mass, no hemorrhoids, heme negative
[~2021-06-29 09:27] MED LIST: LACTATED RINGERS 1,000 ML IV SCH; Pre Op ABX Message 1 EACH MISC MISCELLANE ONE
[2021-06-29] MEDS ORDERED: ONDANSETRON 4 MG/2 ML VIAL ONE (10:02)
[2021-06-29] MEDS ORDERED: ONDANSETRON 4 MG/2 ML VIAL IVP ONE (10:14)
[2021-06-29] MEDS ORDERED: LIDOCAINE 1% (10MG/ML) FOR IV START INTRADERMA ONE (10:14)
[2021-06-29 10:15] VITALS: RESP 16
[2021-06-29] MEDS ORDERED: DEXAMETHASONE SOD PHOSPHATE 4 MG/ML 1 ML VIAL IV ONE (10:15)
[2021-06-29] MEDS ORDERED: MIDAZOLAM 2 MG/2 ML VIAL ONE (11:28)
[2021-06-29] MEDS ORDERED: fentaNYL (PF) 50 MCG/ML 2 ML AMP ONE (11:28)
[2021-06-29] MEDS ORDERED: LIDOCAINE 1% INJ 10MG/ML (20 ML MDV) ONE (11:28)
[2021-06-29] MEDS ORDERED: PROPOFOL 10 MG/ML 20 ML VIAL IV ONE (11:28)
--- NOTE | 2021-06-29 11:54 | P.OP ---
Date of Procedure: 06/29/21 Preoperative Diagnosis: Dysfunctional uterine bleeding Postoperative Diagnosis: Same with suspected proliferative endometrium Procedure(s) Performed: D&C with hysteroscopy Anesthesia: BRANDIE Surgeon: Yaron Haile Estimated Blood Loss (ml): 4 Pathology: other (Uterine curettings) Condition: stable Disposition: same day Operative Findings: Proliferative endometrium. Pathology pending. Cannot rule out hyperplasia Description of Procedure: Patient was taken to the operating suite where a general anesthetic was found be adequate. She was prepped and draped in normal sterile fashion and placed in dorsal lithotomy position. Initially a weighted speculum was inserted in the vagina and anterior lip of the cervix identified and grasped with a single-tooth tenaculum. Cervix was then dilated and camera was inserted. Proliferative endometrium was noted. Camera was removed and sharp curettings of the endometrium were obtained. Tissue was all collected and placed on Telfa and sent to pathology for evaluation. Once this was completed, instruments removed and patient was taken to the recovery room in stable and satisfactory condition. Plan - Discharge Summary Discharge Rx Participant: No New Discharge Prescriptions: New Ibuprofen [Motrin] 600 mg PO Q6HR PRN #30 tab PRN Reason: Pain Discharge Medication List Ibuprofen [Motrin] 600 mg PO Q6HR PRN #30 tab 06/29/21 [Rx] Follow up Appointment(s)/Referral(s): Yaron Haile DO [Doctor of Osteopathic Medicine] - 1 Week Activity/Diet/Wound Care/Special Instructions: No heavy lifting, limit stairs and driving, and pelvic rest. If any high temperatures, heavy bleeding, or severe pain call my office Discharge Disposition: HOME SELF-CARE
[2021-06-29 12:03] VITALS: TEMP 96.8
[2021-06-29] MEDS ORDERED: KETOROLAC 15 MG/ML 1 ML VIAL ONE (12:24)
[2021-06-29 13:11] VITALS: BP 123/80; PULSE 80
== END 2021-06-29 13:52 | disposition home or self-care (01) ==
LOC: OR 09:27
PROVIDERS: ATTEND Obstetrics & Gynecology
DX: N85.00 Endometrial hyperplasia, unspecified (principal); N93.8 Other specified abnormal uterine and vaginal bleeding; G40.909 Epilepsy, unspecified, not intractable, without status epilepticus; E07.9 Disorder of thyroid, unspecified; G80.9 Cerebral palsy, unspecified; F17.210 Nicotine dependence, cigarettes, uncomplicated; F31.9 Bipolar disorder, unspecified; G61.0 Guillain-Barre syndrome; F41.9 Anxiety disorder, unspecified; Z88.2 Allergy status to sulfonamides; Z91.018 Allergy to other foods; Z91.010 Allergy to peanuts
CPT/HCPCS: 58558; 81025; 88305; J2250; J1100; J2405; J2001; J3010; J1885; J2704

== ENCOUNTER 2022-01-15 10:40 | Emergency (ER) | payer OTHER ==
[2022-01-15 10:45] VITALS: TEMP 98.1
[2022-01-15] MEDS ORDERED: SODIUM CHLORIDE 0.9% 1,000 ML IV STA (11:13)
[2022-01-15] MEDS ORDERED: ONDANSETRON 4 MG/2 ML VIAL IVP STA (11:13)
--- NOTE | 2022-01-15 11:37 | ED ---
General Adult HPI - General Chief complaint: Nausea/Vomiting/Diarrhea Stated complaint: vomiting Time Seen by Provider: 01/15/22 10:50 Source: patient Mode of arrival: ambulatory Limitations: no limitations - History of Present Illness Initial comments: This 26-year-old female past medical history of seizure disorder and thyroid disorder presents emergency Department with vomiting 4 days. Patient states 4 days ago in the evening after she ate dinner she began to feel nauseous and vomited later in the night. Patient states she has vomited about 5-7 times a day over the last 4 days. Patient states she is unable to keep solids down but has been able to keep little bit of water down. Patient states she usually vomits within 1 hour of eating. Patient denies taking any medications to help relieve symptoms. Patient denies any hemoptysis or blood in the vomit. Patient states she did have a headache a couple days ago which has since resolved. Patient states she had a D&C performed last January due to having normal menstrual cycle 6 months. Patient states since this D&C she has had an irregular menstrual cycle with heavy bleeding that last 1-2 months. Patient states the last day of her last menstrual period was last Saturday and states she has not bled since. Patient states she bled almost daily for the last 2 months. She states she usually has 2-3 weeks in between her menstrual cycles but states they do usually last around 1-2 months in duration. Patient states she does not currently have a DESK CLERKS SUPERVISOR as her last one did retire. She states she does have a primary care provider but has not followed up with him for this issue. She d enies any alcohol use. Patient denies any fevers, diarrhea, constipation or abdominal pain. Patient denies any chest pain, shortness of breath, change in bowel or bladder, headache, lightheadedness, dizziness. Patient is unsure when she had her thyroid levels checked last. She denies being on any medication for her thyroid disorder. - Related Data Home Medications Medication Instructions Recorded Confirmed ARIPiprazole [Abilify] 2 mg PO HS 01/15/22 01/15/22 busPIRone HCl [Buspar] 5 mg PO DAILY 01/15/22 01/15/22 Previous Rx's Medication Instructions Recorded Ondansetron Odt [Zofran ODT] 4 mg PO Q8HR PRN #10 tab 01/15/22 Allergies Allergy/AdvReac Type Severity Reaction Status Date / Time nut - unspecified Allergy Anaphylaxis Verified 01/15/22 11:08 peanut Allergy Anaphylaxis Verified 01/15/22 11:08 Sulfa (Sulfonamide Allergy Rash/Hives Verified 01/15/22 11:08 Antibiotics) tree nut [Nut] Allergy Anaphylaxis Verified 01/15/22 11:08 Review of Systems ROS Statement: Those systems with pertinent positive or pertinent negative responses have been documented in the HPI. ROS Other: All systems not noted in ROS Statement are negative. Past Medical History Past Medical History: Seizure Disorder, Thyroid Disorder Additional Past Medical History / Comment(s): cerebral palsy, gullian barre in 2011, multiple miscarriages History of Any Multi-Drug Resistant Organisms: None Reported Past Surgical History: No Surgical Hx Reported Additional Past Surgical History / Comment(s): egd Past Anesthesia/Blood Transfusion Reactions: No Reported Reaction Additional Past Anesthesia/Blood Transfusion Reaction / Comment(s): FATHER- TAKES LONGER TO WAKE UP WITH ANESTHESIA". "takes longer to wake up" Past Psychological History: Anxiety, Bipolar Smoking Status: Never smoker - Past Family History Mother Family Medical History: Diabetes Mellitus, Hypertension, Seizure Disorder, Supraventricular Tachycardia (SVT) Additional Family Medical History / Comment(s): SVT Father History Unknown: Yes General Exam Limitations: no limitations General appearance: alert, in no apparent distress Head exam: Present: atraumatic, normocephalic, normal inspection Eye exam: Present: normal appearance, PERRL, EOMI. Absent: scleral icterus, conjunctival injection, periorbital swelling Pupils: Present: normal accommodation ENT exam: Present: normal exam, mucous membranes dry Neck exam: Present: normal inspection. Absent: tenderness, meningismus, lymphadenopathy Respiratory exam: Present: normal lung sounds bilaterally. Absent: respiratory distress, wheezes, rales, rhonchi, stridor, chest wall tenderness Cardiovascular Exam: Present: regular rate, normal rhythm, normal heart sounds. Absent: systolic murmur, diastolic murmur, rubs, gallop, clicks GI/Abdominal exam: Present: soft, normal bowel sounds. Absent: distended, tenderness, guarding, rebound, rigid Extremities exam: Present: normal inspection, full ROM, normal capillary refill. Absent: tenderness, pedal edema, joint swelling, calf tenderness Back exam: Present: normal inspection, full ROM. Absent: CVA tenderness (R), CVA tenderness (L), paraspinal tenderness, vertebral tenderness Neurological exam: Present: alert, oriented X3, CN II-XII intact Psychiatric exam: Present: normal affect, normal mood Skin exam: Present: warm, dry, intact, normal color. Absent: rash Course Vital Signs 01/15/22 01/15/22 10:42 14:00 Temperature 98.1 F Pulse Rate 81 79 Respiratory 18 16 Rate Blood Pressure 118/80 144/87 O2 Sat by Pulse 99 99 Oximetry - Reevaluation(s) Reevaluation #1: 01/15/22 12:21 After receiving fluids and Zofran, patient states she feels much better. Patient denies any nausea at this time. Water in saltine crackers given to the patient 01/15/22 13:02 Patient was able to keep down water in saltine crackers, however she states she does feel a little bit nauseous. However she did not vomit. Reglan and Benadryl given prior to discharge. Zofran prescription given to patient and patient was instructed to follow-up with her primary care provider next 1-2 days. 01/15/22 13:32 And evaluation, patient states she does not have any symptoms at this time. She denies any nausea or vomiting. Patient denies any abdominal pain. Patient to be discharged follow up with her primary care provider. Informed patient that she should seek DESK CLERKS SUPERVISOR and did request that she asked her primary care provider to set her up with DESK CLERKS SUPERVISOR. Patient verbally agreed to plan. Patient stated she would return if her symptoms return or if any new or worsening symptoms arise. Medical Decision Making - Medical Decision Making This 26-year-old female presents emergency Department with vomiting 4 days. Urine with large leukocyte esterase, 46 white blood cells, 17 squamous epithelial cells, rare bacteria. Culture sent. Patient not given antibiotics is not having any urinary symptoms at this time. After receiving fluids and Zofran, patient states she does feel much better. She denies any nausea at this time. Patient was requesting water. Patient was able to keep down water and saltine crackers, however after she ate some crackers she did feel slightly nauseous. Reglan and Benadryl were given to patient. Zofran prescription given for home and patient was instructed to follow up with her primary care provider in next 1-2 days. Prior to discharge patient was asymptomatic and stated she do not have any symptoms. I did instruct patient that she does need to find a new DESK CLERKS SUPERVISOR if her primary care provider does not assess [employer]PERATOR complaints/issues due to patient's hemoglobin being low and patient having menstrual cycles that last 1-2 months. Strict return precautions were discussed. Patient verbally agreed to plan. Patient sent home in stable condition. Case discussed in detail with my attending, Dr. Smith. - Lab Data Result diagrams: 01/15/22 11:28 01/15/22 11:28 Lab Results 01/15/22 01/15/22 01/15/22 Range/Units 11:28 11:28 11:28 WBC 5.6 (3.8-10.6) k/uL RBC 3.71 L (3.80-5.40) m/uL Hgb 8.7 L (11.4-16.0) gm/dL Hct 28.9 L (34.0-46.0) % MCV 77.9 L (80.0-100.0) fL MCH 23.5 L (25.0-35.0) pg MCHC 30.2 L (31.0-37.0) g/dL RDW 15.1 (11.5-15.5) % Plt Count 255 (150-450) k/uL MPV 10.2 Neutrophils % 66 % Lymphocytes % 22 % Monocytes % 7 % Eosinophils % 2 % Basophils % 0 % Neutrophils # 3.6 (1.3-7.7) k/uL Lymphocytes # 1.2 (1.0-4.8) k/uL Monocytes # 0.4 (0-1.0) k/uL Eosinophils # 0.1 (0-0.7) k/uL Basophils # 0.0 (0-0.2) k/uL Hypochromasia Marked Poikilocytosis Moderate Sodium 138 (137-145) mmol/L Potassium 5.0 (3.5-5.1) mmol/L Chloride 105 (98-107) mmol/L Carbon Dioxide 25 (22-30) mmol/L Anion Gap 8 mmol/L BUN 15 (7-17) mg/dL Creatinine 0.71 (0.52-1.04) mg/dL Est GFR (CKD-EPI)AfAm >90 (>60 ml/min/1.73 sqM) Est GFR (CKD-EPI)NonAf >90 (>60 ml/min/1.73 sqM) Glucose 92 (74-99) mg/dL Plasma Lactic Acid Milad (0.7-2.0) mmol/L Calcium 8.4 (8.4-10.2) mg/dL Total Bilirubin 0.7 (0.2-1.3) mg/dL AST 69 H (14-36) U/L ALT 45 H (4-34) U/L Alkaline Phosphatase 107 (38-126) U/L Total Protein 7.6 (6.3-8.2) g/dL Albumin 4.2 (3.5-5.0) g/dL Lipase 80 (23-300) U/L TSH 3.200 (0.465-4.680) mIU/L Urine Color Yellow Urine Appearance Cloudy H (Clear) Urine pH 6.0 (5.0-8.0) Ur Specific [place] 1.025 (1.001-1.035) Urine Protein Trace H (Negative) Urine Glucose (UA) Negative (Negative) Urine Ketones Negative (Negative) Urine Blood Negative (Negative) Urine Nitrite Negative (Negative) Urine Bilirubin Negative (Negative) Urine Urobilinogen <2.0 (<2.0) mg/dL Ur Leukocyte Esterase Large H (Negative) Urine WBC 46 H (0-5) /hpf Ur Squamous Epith Cells 17 H (0-4) /hpf Urine Bacteria Rare H (None) /hpf Urine Mucus Occasional H (None) /hpf Urine HCG, Qual (Not Detectd) Coronavirus (PCR) (Not Detectd) 01/15/22 01/15/22 01/15/22 Range/Units 11:28 11:28 11:28 WBC (3.8-10.6) k/uL RBC (3.80-5.40) m/uL Hgb (11.4-16.0) gm/dL Hct (34.0-46.0) % MCV (80.0-100.0) fL MCH (25.0-35.0) pg MCHC (31.0-37.0) g/dL RDW (11.5-15.5) % Plt Count (150-450) k/uL MPV Neutrophils % % Lymphocytes % % Monocytes % % Eosinophils % % Basophils % % Neutrophils # (1.3-7.7) k/uL Lymphocytes # (1.0-4.8) k/uL Monocytes # (0-1.0) k/uL Eosinophils # (0-0.7) k/uL Basophils # (0-0.2) k/uL Hypochromasia Poikilocytosis Sodium (137-145) mmol/L Potassium (3.5-5.1) mmol/L Chloride (98-107) mmol/L Carbon Dioxide (22-30) mmol/L Anion Gap mmol/L BUN (7-17) mg/dL Creatinine (0.52-1.04) mg/dL Est GFR (CKD-EPI)AfAm (>60 ml/min/1.73 sqM) Est GFR (CKD-EPI)NonAf (>60 ml/min/1.73 sqM) Glucose (74-99) mg/dL Plasma Lactic Acid Milad 0.8 (0.7-2.0) mmol/L Calcium (8.4-10.2) mg/dL Total Bilirubin (0.2-1.3) mg/dL AST (14-36) U/L ALT (4-34) U/L Alkaline Phosphatase (38-126) U/L Total Protein (6.3-8.2) g/dL Albumin (3.5-5.0) g/dL Lipase (23-300) U/L TSH (0.465-4.680) mIU/L Urine Color Urine Appearance (Clear) Urine pH (5.0-8.0) Ur Specific [place] (1.001-1.035) Urine Protein (Negative) Urine Glucose (UA) (Negative) Urine Ketones (Negative) Urine Blood (Negative) Urine Nitrite (Negative) Urine Bilirubin (Negative) Urine Urobilinogen (<2.0) mg/dL Ur Leukocyte Esterase (Negative) Urine WBC (0-5) /hpf Ur Squamous Epith Cells (0-4) /hpf Urine Bacteria (None) /hpf Urine Mucus (None) /hpf Urine HCG, Qual Not Detected (Not Detectd) Coronavirus (PCR) Not Detected (Not Detectd) Disposition Clinical Impression: Vomiting Disposition: HOME SELF-CARE Condition: Stable Instructions (If sedation given, give patient instructions): Acute Nausea and Vomiting (ED) Additional Instructions: Take Zofran as directed. Return to the emergency department if any symptoms return or if any new, worsening, or concerning symptoms arise. Follow-up with your primary care provider next 1-2 days. Prescriptions: Ondansetron Odt [Zofran ODT] 4 mg PO Q8HR PRN #10 tab PRN Reason: Nausea Is patient prescribed a controlled substance at d/c from ED?: No Referrals: Garland Lopez MD [Primary Care Provider] - 1-2 days Time of Disposition: 13:09
[2022-01-15 11:59] LABS: Basophils % (A) 0 %; Eosinophils # (A) 0.1 k/uL (0-0.7); Eosinophils % (A) 2 %; HCT 28.9 % (34.0-46.0); HGB 8.7 gm/dL (11.4-16.0); Hypochromasia Marked; Lymphocytes # (A) 1.2 k/uL (1.0-4.8); Lymphocytes % (A) 22 %; MCH 23.5 pg (25.0-35.0); MCHC 30.2 g/dL (31.0-37.0); MCV 77.9 fL (80.0-100.0); Mean Platelet Volume 10.2; Monocytes # (A) 0.4 k/uL (0-1.0); Monocytes % (A) 7 %; Neutrophils # (A) 3.6 k/uL (1.3-7.7); Neutrophils % (A) 66 %; Platelet Count 255 k/uL (150-450); Poikilocytosis Moderate; RBC 3.71 m/uL (3.80-5.40); RDW 15.1 % (11.5-15.5); WBC 5.6 k/uL (3.8-10.6)
[2022-01-15 12:10] LABS: ALT 45 U/L (4-34); African American GFR (CKD) >90 (>60 ml/min/1.73 sqM); Anion Gap 8 mmol/L; Appearance,Urine Cloudy (Clear); Bacteria,Urine Rare /hpf; Bilirubin,Urine Negative (Negative); Blood Urea Nitrogen 15 mg/dL (7-17); Blood,Urine Negative (Negative); Calcium 8.4 mg/dL (8.4-10.2); Carbon Dioxide 25 mmol/L (22-30); Chloride 105 mmol/L (98-107); Color,Urine Yellow; Glucose 92 mg/dL (74-99); Glucose,Urine (UA) Negative (Negative); Ketones,Urine Negative (Negative); Leukocyte Esterase,Urine Large (Negative); Lipase 80 U/L (23-300); Mucus,Urine Occasional /hpf; Nitrite,Urine Negative (Negative); Non-African American GFR(CKD) >90 (>60 ml/min/1.73 sqM); Protein,Urine Trace (Negative); Sodium 138 mmol/L (137-145); Specific Gravity,Urine 1.025 (1.001-1.035); Squamous Epithelial Cell,Urine 17 /hpf (0-4); Total Bilirubin 0.7 mg/dL (0.2-1.3); Urobilinogen,Urine <2.0 mg/dL (<2.0); WBC,Urine 46 /hpf (0-5)
[2022-01-15 12:24] LABS: AST 69 U/L (14-36); Albumin 4.2 g/dL (3.5-5.0); Alkaline Phosphatase 107 U/L (38-126); Total Protein 7.6 g/dL (6.3-8.2)
[2022-01-15] MEDS ORDERED: diphenhydrAMINE 50 MG/ML 1 ML VIAL IM STA (13:05)
[2022-01-15] MEDS ORDERED: METOCLOPRAMIDE 5 MG/ML 2 ML VIAL IVP STA (13:05)
[2022-01-15 14:02] VITALS: BP 144/87; PULSE 79; RESP 16
== END 2022-01-15 14:17 | disposition home or self-care (01) ==
LOC: EC 10:40
DX: R11.2 Nausea with vomiting, unspecified (principal); Z20.822 Contact with and (suspected) exposure to COVID-19; F31.9 Bipolar disorder, unspecified; F41.9 Anxiety disorder, unspecified; Z79.899 Other long term (current) drug therapy
CPT/HCPCS: 36415; 80053; 84443; 83605; 83690; 85025; 81001; 81025; 87086; 87635; 99284; 96374; 96375; 96361; 96372; J1200; J2765; J2405

== ENCOUNTER 2022-02-10 13:23 | Emergency (ER) | payer OTHER ==
[2022-02-10 13:51] LABS: Appearance,Urine Cloudy (Clear); Bilirubin,Urine Negative (Negative); Blood,Urine Large (Negative); Color,Urine Yellow; Glucose,Urine (UA) Negative (Negative); Ketones,Urine Negative (Negative); Leukocyte Esterase,Urine Small (Negative); Mucus,Urine Few /hpf; Nitrite,Urine Negative (Negative); PH, Urine 6.5 (5.0-8.0); Protein,Urine Trace (Negative); RBC,Urine >182 /hpf (0-5); Specific Gravity,Urine 1.022 (1.001-1.035); Urobilinogen,Urine <2.0 mg/dL (<2.0); WBC,Urine 17 /hpf (0-5)
[2022-02-10] MEDS ORDERED: ONDANSETRON 4 MG/2 ML VIAL IVP STA (14:20)
[2022-02-10] MEDS ORDERED: ACETAMINOPHEN TAB 325 MG TAB PO STA (14:26)
[2022-02-10 14:42] LABS: Basophils % (A) 1 %; Eosinophils # (A) 0.1 k/uL (0-0.7); Eosinophils % (A) 2 %; HGB 8.9 gm/dL (11.4-16.0); Hypochromasia Marked; Lymphocytes # (A) 1.2 k/uL (1.0-4.8); Lymphocytes % (A) 27 %; MCH 21.5 pg (25.0-35.0); MCHC 28.6 g/dL (31.0-37.0); MCV 75.3 fL (80.0-100.0); Mean Platelet Volume 8.6; Microcytosis Slight; Monocytes # (A) 0.3 k/uL (0-1.0); Monocytes % (A) 6 %; Neutrophils # (A) 2.8 k/uL (1.3-7.7); Neutrophils % (A) 63 %; Platelet Count 228 k/uL (150-450); Poikilocytosis Slight; RBC 4.11 m/uL (3.80-5.40); RDW 15.9 % (11.5-15.5); WBC 4.5 k/uL (3.8-10.6)
[2022-02-10 14:57] LABS: ALT 23 U/L (4-34); AST 25 U/L (14-36); African American GFR (CKD) >90 (>60 ml/min/1.73 sqM); Albumin 4.1 g/dL (3.5-5.0); Alkaline Phosphatase 111 U/L (38-126); Anion Gap 6 mmol/L; Blood Urea Nitrogen 12 mg/dL (7-17); Calcium 8.7 mg/dL (8.4-10.2); Carbon Dioxide 26 mmol/L (22-30); Chloride 107 mmol/L (98-107); Glucose 91 mg/dL (74-99); Non-African American GFR(CKD) >90 (>60 ml/min/1.73 sqM); Potassium 4.2 mmol/L (3.5-5.1); Sodium 139 mmol/L (137-145); Total Bilirubin 0.4 mg/dL (0.2-1.3); Total Protein 7.2 g/dL (6.3-8.2)
--- NOTE | 2022-02-10 15:16 | US ---
EXAMINATION TYPE: US transvaginal DATE OF EXAM: 02/10/2022 COMPARISON: US dated 01/03/2021 CLINICAL HISTORY: rule out ovarian torsion. abdominal pain TECHNIQUE: Transvaginal (TV). Date of LMP: patient states cycles very irregular, she is bleeding now but not sure if it is her cyc le. EXAM MEASUREMENTS: Uterus: 9.7 x 4.2 x 5.7 cm Endometrial Stripe: 1.4 cm Right Ovary: 3.5 x 2.4 x 2.9 cm Left Ovary: 3.2 x 2.8 x 2.9 cm 1. Uterus: Anteverted multiple nabothian cysts noted 2. Endometrium: measures 1.4 cm 3. Right Ovary: wnl 4. Left Ovary: wnl Spectral, color and waveform doppler imaging shows good arterial and venous flow within the ovaries ; there is no evidence for ovarian torsion. 5. Bilateral Adnexa: wnl 6. Posterior cul-de-sac: small amount of free fluid IMPRESSION: No significant abnormality seen.
--- NOTE | 2022-02-10 16:03 | ED ---
General Adult HPI - General Chief complaint: Abdominal Pain Stated complaint: abd pain Time Seen by Provider: 02/10/22 14:11 Source: patient Mode of arrival: ambulatory Limitations: no limitations - History of Present Illness Initial comments: Patient is a 26-year-old female who presents to the emergency department with chief complaint of pelvic cramping and nausea. Patient states symptoms started 2 days ago. Patient denies fever, chills, vomiting, and diarrhea. She reports normal bowel movements with last one yesterday. Patient has polycystic ovarian syndrome and states her menstrual periods have been very irregular for the past 6 months. Patient states she has had 5 menstrual periods this month. Menstrual period varies from 2 days to 2 and half months. Patient denies chest pain, palpitations, dizziness, lightheadedness, and shortness of breath. Patient denies concern for . She denies control use or IUD. Patient is seeking a new STOCK SHAPER as she states she is unable to make an appointment with her current one. - Related Data Home Medications Medication Instructions Recorded Confirmed ARIPiprazole [Abilify] 2 mg PO HS 01/15/22 01/15/22 busPIRone HCl [Buspar] 5 mg PO DAILY 01/15/22 01/15/22 Previous Rx's Medication Instructions Recorded Ondansetron Odt [Zofran ODT] 4 mg PO Q8HR PRN #10 tab 01/15/22 Ondansetron Odt [Zofran Odt] 4 mg PO Q8HR PRN #15 tab 02/10/22 Allergies Allergy/AdvReac Type Severity Reaction Status Date / Time nut - unspecified Allergy Anaphylaxis Verified 02/10/22 13:28 peanut Allergy Anaphylaxis Verified 02/10/22 13:28 Sulfa (Sulfonamide Allergy Rash/Hives Verified 02/10/22 13:28 Antibiotics) tree nut [Nut] Allergy Anaphylaxis Verified 02/10/22 13:28 Review of Systems ROS Statement: Those systems with pertinent positive or pertinent negative responses have been documented in the HPI. ROS Other: All systems not noted in ROS Statement are negative. Past Medical History Past Medical History: Diabetes Mellitus, Seizure Disorder, Thyroid Disorder Additional Past Medical History / Comment(s): cerebral palsy, gullian barre in 2011, multiple miscarriages History of Any Multi-Drug Resistant Organisms: None Reported Past Surgical History: No Surgical Hx Reported Additional Past Surgical History / Comment(s): egd Past Anesthesia/Blood Transfusion Reactions: No Reported Reaction Additional Past Anesthesia/Blood Transfusion Reaction / Comment(s): FATHER- TAKES LONGER TO WAKE UP WITH ANESTHESIA". "takes longer to wake up" Past Psychological History: Anxiety, Bipolar Smoking Status: Never smoker Past Alcohol Use History: None Reported Past Drug Use History: None Reported - Past Family History Mother Family Medical History: Diabetes Mellitus, Hypertension, Seizure Disorder, Supraventricular Tachycardia (SVT) Additional Family Medical History / Comment(s): SVT Father History Unknown: Yes General Exam Limitations: no limitations General appearance: alert, in no apparent distress Head exam: Present: atraumatic, normocephalic, normal inspection Respiratory exam: Present: normal lung sounds bilaterally. Absent: respiratory distress, wheezes, rales, rhonchi, stridor Cardiovascular Exam: Present: regular rate, normal rhythm, normal heart sounds. Absent: systolic murmur, diastolic murmur, rubs, gallop, clicks GI/Abdominal exam: Present: soft, normal bowel sounds. Absent: distended, tenderness, guarding, rebound, rigid Neurological exam: Present: alert, oriented X3, CN II-XII intact Psychiatric exam: Present: normal affect, normal mood Skin exam: Present: warm, dry, intact, normal color. Absent: rash Course Vital Signs 02/10/22 13:27 Temperature 98.4 F Pulse Rate 74 Respiratory 20 Rate Blood Pressure 132/83 O2 Sat by Pulse 99 Oximetry Medical Decision Making - Medical Decision Making This is a 26-year-old female who presents with pelvic cramping and nausea for 2 days. Thorough history and examination were performed. Patient is afebrile. She looks well and is in no apparent distress. Patient has history of PCOS with irregular bleeding for 6 months. The abdomen is soft and nontender. Laboratory studies were obtained. Hemoglobin is 8.9, consistent with her last visit on 01/15/22. RBC's are found on urinalysis likely due to menstruation. With patient's pain and history of PCOS, ovarian torsion cannot be ruled out. Ultrasound was obtained which shows no significant abnormality. At this time it appears the patient is having dysfunctional uterine bleeding of unknown etiology. Patient will be discharged with referral to Dr. Telles. Patient states she has seen her previously. Patient and I discussed the importance of STOCK SHAPER follow-up due to low hemoglobin. Return parameters discussed. She verbalizes understanding and is agreeable to this plan. Dr. Copeland is my attending. - Lab Data Result diagrams: 02/10/22 14:32 02/10/22 14:32 Lab Results 02/10/22 02/10/22 02/10/22 Range/Units 13:30 13:30 14:32 WBC 4.5 (3.8-10.6) k/uL RBC 4.11 (3.80-5.40) m/uL Hgb 8.9 L (11.4-16.0) gm/dL Hct 31.0 L (34.0-46.0) % MCV 75.3 L (80.0-100.0) fL MCH 21.5 L (25.0-35.0) pg MCHC 28.6 L (31.0-37.0) g/dL RDW 15.9 H (11.5-15.5) % Plt Count 228 (150-450) k/uL MPV 8.6 Neutrophils % 63 % Lymphocytes % 27 % Monocytes % 6 % Eosinophils % 2 % Basophils % 1 % Neutrophils # 2.8 (1.3-7.7) k/uL Lymphocytes # 1.2 (1.0-4.8) k/uL Monocytes # 0.3 (0-1.0) k/uL Eosinophils # 0.1 (0-0.7) k/uL Basophils # 0.0 (0-0.2) k/uL Hypochromasia Marked Poikilocytosis Slight Microcytosis Slight Sodium (137-145) mmol/L Potassium (3.5-5.1) mmol/L Chloride (98-107) mmol/L Carbon Dioxide (22-30) mmol/L Anion Gap mmol/L BUN (7-17) mg/dL Creatinine (0.52-1.04) mg/dL Est GFR (CKD-EPI)AfAm (>60 ml/min/1.73 sqM) Est GFR (CKD-EPI)NonAf (>60 ml/min/1.73 sqM) Glucose (74-99) mg/dL Calcium (8.4-10.2) mg/dL Total Bilirubin (0.2-1.3) mg/dL AST (14-36) U/L ALT (4-34) U/L Alkaline Phosphatase (38-126) U/L Total Protein (6.3-8.2) g/dL Albumin (3.5-5.0) g/dL Urine Color Yellow Urine Appearance Cloudy H (Clear) Urine pH 6.5 (5.0-8.0) Ur Specific [place] 1.022 (1.001-1.035) Urine Protein Trace H (Negative) Urine Glucose (UA) Negative (Negative) Urine Ketones Negative (Negative) Urine Blood Large H (Negative) Urine Nitrite Negative (Negative) Urine Bilirubin Negative (Negative) Urine Urobilinogen <2.0 (<2.0) mg/dL Ur Leukocyte Esterase Small H (Negative) Urine RBC >182 H (0-5) /hpf Urine WBC 17 H (0-5) /hpf Urine Mucus Few H (None) /hpf Urine HCG, Qual Not Detected (Not Detectd) 02/10/22 Range/Units 14:32 WBC (3.8-10.6) k/uL RBC (3.80-5.40) m/uL Hgb (11.4-16.0) gm/dL Hct (34.0-46.0) % MCV (80.0-100.0) fL MCH (25.0-35.0) pg MCHC (31.0-37.0) g/dL RDW (11.5-15.5) % Plt Count (150-450) k/uL MPV Neutrophils % % Lymphocytes % % Monocytes % % Eosinophils % % Basophils % % Neutrophils # (1.3-7.7) k/uL Lymphocytes # (1.0-4.8) k/uL Monocytes # (0-1.0) k/uL Eosinophils # (0-0.7) k/uL Basophils # (0-0.2) k/uL Hypochromasia Poikilocytosis Microcytosis Sodium 139 (137-145) mmol/L Potassium 4.2 (3.5-5.1) mmol/L Chloride 107 (98-107) mmol/L Carbon Dioxide 26 (22-30) mmol/L Anion Gap 6 mmol/L BUN 12 (7-17) mg/dL Creatinine 0.71 (0.52-1.04) mg/dL Est GFR (CKD-EPI)AfAm >90 (>60 ml/min/1.73 sqM) Est GFR (CKD-EPI)NonAf >90 (>60 ml/min/1.73 sqM) Glucose 91 (74-99) mg/dL Calcium 8.7 (8.4-10.2) mg/dL Total Bilirubin 0.4 (0.2-1.3) mg/dL AST 25 (14-36) U/L ALT 23 (4-34) U/L Alkaline Phosphatase 111 (38-126) U/L Total Protein 7.2 (6.3-8.2) g/dL Albumin 4.1 (3.5-5.0) g/dL Urine Color Urine Appearance (Clear) Urine pH (5.0-8.0) Ur Specific [place] (1.001-1.035) Urine Protein (Negative) Urine Glucose (UA) (Negative) Urine Ketones (Negative) Urine Blood (Negative) Urine Nitrite (Negative) Urine Bilirubin (Negative) Urine Urobilinogen (<2.0) mg/dL Ur Leukocyte Esterase (Negative) Urine RBC (0-5) /hpf Urine WBC (0-5) /hpf Urine Mucus (None) /hpf Urine HCG, Qual (Not Detectd) Disposition Clinical Impression: Dysfunctional uterine bleeding, Pelvic pain Disposition: HOME SELF-CARE Condition: Good Instructions (If sedation given, give patient instructions): Abnormal (Dysfunctional) Uterine Bleeding (ED), Abdominal Pain (ED) Additional Instructions: Please take medication as directed. Take Tylenol or Motrin as needed for pain. It is important to follow-up with the STOCK SHAPER provided as your hemoglobin is low likely due to chronic vaginal bleeding. Return to the emergency department if you experience new, concerning, or worsening symptoms. Prescriptions: Ondansetron Odt [Zofran Odt] 4 mg PO Q8HR PRN #15 tab PRN Reason: Nausea Is patient prescribed a controlled substance at d/c from ED?: No Referrals: Garland Lopez MD [Primary Care Provider] - 1-2 days Kika Telles DO [Doctor of Osteopathic Medicine] - 1-2 days
[2022-02-10 17:00] VITALS: BP 120/68; PULSE 87; RESP 18; TEMP 98.8
== END 2022-02-10 16:40 | disposition home or self-care (01) ==
LOC: EC 13:23
DX: N93.8 Other specified abnormal uterine and vaginal bleeding (principal); E11.9 Type 2 diabetes mellitus without complications; F31.9 Bipolar disorder, unspecified; F41.9 Anxiety disorder, unspecified; Z79.899 Other long term (current) drug therapy
CPT/HCPCS: 36415; 80053; 85025; 81001; 81025; 87086; 93975; 76830; 99284; 96374; J2405

== ENCOUNTER 2022-03-21 16:57 | Observation (INO) | payer OTHER ==
--- NOTE | 2022-03-21 17:42 | ED ---
General Adult HPI - General Chief complaint: Vaginal Bleeding Stated complaint: Vag Bleeding Time Seen by Provider: 03/21/22 17:11 Source: patient, family, EMS, RN notes reviewed Mode of arrival: EMS Limitations: no limitations - History of Present Illness Initial comments: Patient is a pleasant 26-year-old female transferred from [facility]. Patient has been having heavy vaginal bleeding for the past 3 months. Prior to this patient had a D&C. Prior to that patient had not had a menstrual cycle in 6 months. Patient is a history of she 16, P4. No current . Patient was having some fatigue and exertional dyspnea today. Patient did have hemoglobin of 5.8 and blood transfusion was provided. No abdominal pain. Patient is going through pads frequently. Today seems slightly power originator and has only gone through 4 pads today. Patient did have pelvic done at transferring facility. Patient feels bleeding is power originator at this time. - Related Data Home Medications Medication Instructions Recorded Confirmed busPIRone HCl [Buspar] 5 mg PO DAILY 01/15/22 03/21/22 Acetaminophen Tab [Tylenol] 650 mg PO Q4H PRN 03/21/22 03/21/22 Allergies Allergy/AdvReac Type Severity Reaction Status Date / Time nut - unspecified Allergy Anaphylaxis Verified 03/21/22 17:32 peanut Allergy Anaphylaxis Verified 03/21/22 17:32 Sulfa (Sulfonamide Allergy Rash/Hives Verified 03/21/22 17:32 Antibiotics) tree nut [Nut] Allergy Anaphylaxis Verified 03/21/22 17:32 Review of Systems ROS Statement: Those systems with pertinent positive or pertinent negative responses have been documented in the HPI. ROS Other: All systems not noted in ROS Statement are negative. Constitutional: Denies: fever Eyes: Denies: eye pain ENT: Denies: ear pain Respiratory: Reports: as per HPI. Denies: cough Cardiovascular: Denies: chest pain Endocrine: Reports: fatigue Gastrointestinal: Denies: abdominal pain Genitourinary: Reports: as per HPI Musculoskeletal: Denies: back pain Skin: Denies: rash Past Medical History Past Medical History: Diabetes Mellitus, Seizure Disorder, Thyroid Disorder Additional Past Medical History / Comment(s): cerebral palsy, gullian barre in 2010, multiple miscarriages History of Any Multi-Drug Resistant Organisms: None Reported Past Surgical History: No Surgical Hx Reported Additional Past Surgical History / Comment(s): egd Past Anesthesia/Blood Transfusion Reactions: No Reported Reaction Additional Past Anesthesia/Blood Transfusion Reaction / Comment(s): FATHER- TAKES LONGER TO WAKE UP WITH ANESTHESIA". "takes longer to wake up" Past Psychological History: Anxiety, Bipolar Smoking Status: Never smoker Past Alcohol Use History: None Reported Past Drug Use History: None Reported - Past Family History Mother Family Medical History: Diabetes Mellitus, Hypertension, Seizure Disorder, Supraventricular Tachycardia (SVT) Additional Family Medical History / Comment(s): SVT Father History Unknown: Yes General Exam Limitations: no limitations General appearance: alert, in no apparent distress Head exam: Present: normocephalic Eye exam: Present: normal appearance Neck exam: Present: normal inspection Respiratory exam: Present: normal lung sounds bilaterally Cardiovascular Exam: Present: regular rate, normal rhythm GI/Abdominal exam: Present: soft. Absent: tenderness Extremities exam: Present: normal inspection Neurological exam: Present: alert Psychiatric exam: Present: normal affect, normal mood Skin exam: Present: normal color Course Vital Signs 03/21/22 16:59 Temperature 98.5 F Pulse Rate 93 Respiratory 16 Rate Blood Pressure 105/71 O2 Sat by Pulse 97 Oximetry Medical Decision Making - Medical Decision Making Case was discussed with Dr. Telles, who will admit. Disposition Clinical Impression: Dysfunctional uterine bleeding Disposition: ADMITTED IP TO THIS HOSP Is patient prescribed a controlled substance at d/c from ED?: No Referrals: Garland Lopez MD [Primary Care Provider] - 1-2 days Time of Disposition: 17:57
[2022-03-21] MEDS ORDERED: NALOXONE 0.4 MG/ML 1 ML VIAL IV PRN (17:58)
--- NOTE | 2022-03-21 22:00 | CONS ---
CONSULTATION This 26-year-old white female was transferred from [facility] due to vaginal bleeding in the past 3 months. She has not had a menstrual period in 6 months. She had fatigue, exertional dyspnea, hemoglobin of 5.8. Blood transfusion was provided. previously. Home medicines include BuSpar, Tylenol. ALLERGIES: PLEASE SEE LIST. Fourteen-point review of systems otherwise is negative except for weakness, fatigue, lightheadedness, dizziness. Otherwise negative. PAST MEDICAL HISTORY: Diabetes mellitus, seizure disorder, hypothyroidism, cerebral palsy, Guillain-Aurora, multiple miscarriages. SOCIAL HISTORY: No smoking. No alcohol. No drugs. FAMILY HISTORY: Mother with diabetes mellitus, hypertension, seizures, tachycardia. PHYSICAL EXAMINATION: Temperature 98.5, pulse 90 to 93, respiratory rate 16 to 18, blood pressure 105/71, O2 97. Normal appearance. Normocephalic, atraumatic. Lungs clear. Cardiovascular S1, S2. GI soft. Extremities no edema. Psych fair mood and affect. ASSESSMENT: Dysfunction uterine bleeding. Keep on her home medications. Wait for recommendations from the GI physician. We have to monitor for anemia. Clear liquid diet. Pelvic ultrasound. Prognosis guarded. MMODL / IJN: [id number] /
--- NOTE | 2022-03-21 22:28 | US ---
EXAMINATION TYPE: US pelvic complete DATE OF EXAM: 03/21/2022 COMPARISON: TV 02/10/22 CLINICAL HISTORY: Vaginal bleeding x 3 mths. Patient had D&C 3 months ago and states she has been ble eding ever since. Patient's hemoglobin was 5.8 today. Patient was given 2 transfusions. TECHNIQUE: Transabdominal (TA). EXAM MEASUREMENTS: Uterus: 10.1 x 5.1 x 6.1 cm Endometrial Stripe: 1.0 cm Right Ovary: 2.8 x 2.1 x 2.4 cm Left Ovary: 2.7 x 2.1 x 2.0 cm 1. Uterus: Anteverted No apparent abnormality seen 2. Endometrium: Appears thickened 3. Right Ovary: Limited visualization 4. Left Ovary: Follicles noted; appears wnl 5. Bilateral Adnexa: Appears wnl 6. Posterior cul-de-sac: wnl IMPRESSION: Negative transabdominal pelvic sonogram. No adnexal mass or free fluid. No endometrial mass.
[2022-03-21] MEDS: ACETAMINOPHEN TAB 325 MG TAB PO PRN (23:17)
[2022-03-21] MEDS: SODIUM CHLORIDE 0.9% 1,000 ML IV SCH (23:17)
[2022-03-21 23:43] LABS: Anisocytosis Slight; Basophils % (A) 0 %; Eosinophils # (A) 0.1 k/uL (0-0.7); Eosinophils % (A) 1 %; HCT 24.9 % (34.0-46.0); Hypochromasia Marked; Lymphocytes # (A) 0.8 k/uL (1.0-4.8); Lymphocytes % (A) 13 %; MCH 21.1 pg (25.0-35.0); MCHC 27.6 g/dL (31.0-37.0); MCV 76.3 fL (80.0-100.0); Mean Platelet Volume 9.2; Microcytosis Slight; Monocytes # (A) 0.4 k/uL (0-1.0); Monocytes % (A) 6 %; Neutrophils % (A) 79 %; Platelet Count 150 k/uL (150-450); Poikilocytosis Marked; RBC 3.26 m/uL (3.80-5.40); RDW 17.2 % (11.5-15.5); WBC 6.3 k/uL (3.8-10.6)
[2022-03-22 00:04] LABS: HGB 6.9 gm/dL (11.4-16.0)
[2022-03-22] MEDS: ACETAMINOPHEN TAB 325 MG TAB PO PRN ×2 (05:05→15:59)
[2022-03-22 07:05] LABS: Anisocytosis Slight; HCT 24.2 % (34.0-46.0); Hypochromasia Marked; MCH 21.5 pg (25.0-35.0); MCV 76.6 fL (80.0-100.0); Microcytosis Slight; Platelet Count 161 k/uL (150-450); Poikilocytosis Marked; RBC 3.16 m/uL (3.80-5.40); RDW 17.2 % (11.5-15.5); WBC 5.9 k/uL (3.8-10.6)
[2022-03-22 07:13] LABS: HGB 6.8 gm/dL (11.4-16.0)
[2022-03-22] MEDS: busPIRone HCl 5 MG TAB PO SCH (07:59)
[2022-03-22] MEDS: PANTOPRAZOLE 40 MG/10 ML VIAL IV SCH (08:00)
[2022-03-22 09:58] LABS: Iron 139 ug/dL (50-170)
--- NOTE | 2022-03-22 10:44 | P.HPOB ---
History of Present Illness H&P Date: 03/22/22 Chief Complaint: DUB, anemia 26 year old with history of DUB s/p D&C in June by Dr Haile. She presented to ER yesterday with c/o heavy vaginal bleeding for the last few months. She is not currently bleeding. She says it stopped in ER yesterday after given 1 dose of rocephin. I admitted pt for 2 units of PRBCs and cont rocephin. She had one fever of 101 yesterday after getting the blood transfusion. She has no elevation of wbcs so I am not convinced of infection, did send urine for culture. Review of Systems All systems: negative Constitutional: Denies chills, Denies fever Eyes: denies blurred vision, denies pain Ears, nose, mouth and throat: Denies headache, Denies sore throat Cardiovascular: Denies chest pain, Denies shortness of breath Respiratory: Denies cough Gastrointestinal: Denies abdominal pain, Denies diarrhea, Denies nausea, Denies vomiting Genitourinary: Denies dysuria, Denies hematuria Musculoskeletal: Denies myalgias Integumentary: Denies pruritus, Denies rash Neurological: Denies numbness, Denies weakness Psychiatric: Denies anxiety, Denies depression Endocrine: Denies fatigue, Denies weight change Past Medical History Past Medical History: Seizure Disorder, Thyroid Disorder Additional Past Medical History / Comment(s): cerebral palsy, gullian barre in 2010, multiple miscarriages, anemia History of Any Multi-Drug Resistant Organisms: None Reported Past Surgical History: No Surgical Hx Reported Additional Past Surgical History / Comment(s): D&C Past Anesthesia/Blood Transfusion Reactions: No Reported Reaction Additional Past Anesthesia/Blood Transfusion Reaction / Comment(s): FATHER- TAKES LONGER TO WAKE UP WITH ANESTHESIA". "takes longer to wake up" Past Psychological History: Anxiety, Bipolar Additional Psychological History / Comment(s): lives with children Smoking Status: Never smoker Past Alcohol Use History: None Reported Additional Past Alcohol Use History / Comment(s): started smoking at Age 15 and quit age 16 ONLY SMOKED 2 CIG PER DAY Past Drug Use History: None Reported - Past Family History Mother Family Medical History: Diabetes Mellitus, Hypertension, Seizure Disorder, Supraventricular Tachycardia (SVT) Additional Family Medical History / Comment(s): SVT Father History Unknown: Yes Medications and Allergies Home Medications Medication Instructions Recorded Confirmed Type busPIRone HCl [Buspar] 5 mg PO DAILY 01/15/22 03/21/22 History Acetaminophen Tab [Tylenol] 650 mg PO Q4H PRN 03/21/22 03/21/22 History Allergies Allergy/AdvReac Type Severity Reaction Status Date / Time nut - unspecified Allergy Anaphylaxis Verified 03/21/22 17:32 peanut Allergy Anaphylaxis Verified 03/21/22 17:32 Sulfa (Sulfonamide Allergy Rash/Hives Verified 03/21/22 17:32 Antibiotics) tree nut [Nut] Allergy Anaphylaxis Verified 03/21/22 17:32 Exam Osteopathic Statement: *. No significant issues noted on an osteopathic structural exam other than those noted in the History and Physical/Consult. Vital Signs Temp Pulse Pulse Resp BP BP Pulse Ox 03/22/22 08:00 97.0 F L 90 16 110/52 98 03/22/22 05:11 99.2 F 95 15 110/57 95 03/22/22 02:00 100.4 F H 105 H 16 110/58 99 03/22/22 01:00 100.4 F H 120 H 17 130/72 98 03/21/22 23:02 101.4 F H 110 H 16 114/59 98 03/21/22 21:17 97.9 F 85 16 118/61 99 03/21/22 20:00 99.3 F 85 16 118/61 99 03/21/22 16:59 98.5 F 93 16 105/71 97 Intake and Output 03/21/22 03/22/22 03/22/22 22:59 06:59 14:59 Other: # Voids 3 1 Weight 87.543 kg Heart: Regular rate and rhythm Lungs: Clear to auscultation bilaterally Abdomen: Soft, nontender Extremities: Negative Homans sign Results Result Diagrams: 03/22/22 06:32 Abnormal Lab Results - Last 24 Hours (Table) 03/21/22 03/22/22 Range/Units 23:12 06:32 RBC 3.26 L 3.16 L (3.80-5.40) m/uL Hgb 6.9 L* D 6.8 L* (11.4-16.0) gm/dL Hct 24.9 L 24.2 L (34.0-46.0) % MCV 76.3 L 76.6 L (80.0-100.0) fL MCH 21.1 L 21.5 L (25.0-35.0) pg MCHC 27.6 L 28.0 L (31.0-37.0) g/dL RDW 17.2 H 17.2 H (11.5-15.5) % Lymphocytes # 0.8 L (1.0-4.8) k/uL Assessment and Plan (1) Dysfunctional uterine bleeding Current Visit: Yes Status: Acute Code(s): N93.8 - OTHER SPECIFIED ABNORMAL UTERINE AND VAGINAL BLEEDING SNOMED Code(s): 74339880601757 (2) Anemia due to blood loss, chronic Current Visit: Yes Status: Acute Code(s): D50.0 - IRON DEFICIENCY ANEMIA SECONDARY TO BLOOD LOSS (CHRONIC) SNOMED Code(s): 719322786 Plan: 1. her hgb is 6.8 today and stable from last night after transfusion. will monitor for s/s of anemia today 2. keep inpatient for IV antibiotics until 24 hours afebrile 3. pt has had appt with Juan A Davis who is an RECONCILIATION COORDINATOR working with RETAIL [employer]VERT[employer] EXECUTIVE Dr Gonzalez. After discharge I will have her follow up there.
[2022-03-22 11:24] LABS: Neutrophils # (M) 4.31 k/uL (1.3-7.7); Neutrophils % (M) 73 %
[2022-03-22 11:25] LABS: Lymphocytes # (M) 1.24 k/uL (1.0-4.8); Monocytes # (M) 0.35 k/uL (0-1.0); Nucleated Red Blood Cells 0 /100 WBC (0-0); Total Cells Counted 100
[2022-03-22 14:30] LABS: % Iron Saturation 30.83 (12.00-45.00); Total Iron Binding Capacity 451 ug/dL (228-460)
[2022-03-22] MEDS: SODIUM CHLORIDE 0.9% 1,000 ML IV SCH (20:56)
[2022-03-23] MEDS: ACETAMINOPHEN TAB 325 MG TAB PO PRN (00:16)
[2022-03-23 04:20] VITALS: RESP 16
[2022-03-23 06:59] LABS: HCT 28.1 % (34.0-46.0); RBC 3.58 m/uL (3.80-5.40); WBC 5.7 k/uL (3.8-10.6)
[2022-03-23 07:00] LABS: Anisocytosis Slight; Basophils % (A) 0 %; Eosinophils # (A) 0.1 k/uL (0-0.7); Eosinophils % (A) 3 %; Hypochromasia Marked; Lymphocytes # (A) 1.5 k/uL (1.0-4.8); Lymphocytes % (A) 27 %; MCH 23.2 pg (25.0-35.0); MCHC 29.5 g/dL (31.0-37.0); MCV 78.7 fL (80.0-100.0); Mean Platelet Volume 8.1; Microcytosis Slight; Monocytes # (A) 0.4 k/uL (0-1.0); Monocytes % (A) 8 %; Neutrophils # (A) 3.4 k/uL (1.3-7.7); Neutrophils % (A) 59 %; Platelet Count 149 k/uL (150-450); Poikilocytosis Marked; RDW 18.2 % (11.5-15.5)
[2022-03-23 07:01] LABS: HGB 8.3 gm/dL (11.4-16.0)
--- NOTE | 2022-03-23 07:36 | P.DS ---
Providers Date of admission: 03/21/22 18:00 Expected date of discharge: 03/23/22 Attending physician: Kika Telles Consults: 03/21/22 17:58 Consult Physician Routine Consulting Provider: Garland Lopez Consult Reason/Comments: medical care Do you want consulting provider notified?: Yes Primary care physician: Garland Lopez - Discharge Diagnosis(es) (1) Dysfunctional uterine bleeding Current Visit: Yes Status: Acute (2) Anemia due to blood loss, chronic Current Visit: Yes Status: Acute Hospital Course: Patient presented to Hospital after a 9 month history of vaginal bleeding. She says she's had vaginal bleeding since her D&C with Dr. Rivera. When I asked her when that D&C was she thought was in December but actually was way back in June 2021. This showed proliferative endometrium. Patient says she's been back and forth from the hospital a few times with this vaginal bleeding but this time she was so anemic that she needed blood transfusion. Her hemoglobin was 5.8. Her hemoglobin was then stable at 6.8 and she was not tachycardic but Dr. Lopez thought that she is still needed one more unit of blood. Her hemoglobin is now 8.6 and she is feeling great. She is just spotting vaginally now. She does have an appointment with [facility] in [place] a nurse practitioner with Dr. Gonzalez who is doing a workup for her outpatient. I will have her follow-up with Dr. Gonzalez and [facility] in [place] for possible control or an IUD to help with this bleeding. Currently patient is very stable, she denies nausea, vomiting, chest pain, shortness of breath headache or any calf pain. She is ambulating voiding without difficulty. Patient will be discharged home in stable condition to follow-up with her RELIEF CHARGE NURSE next week. Plan - Discharge Summary New Discharge Prescriptions: New Cephalexin [Keflex] 500 mg PO Q6HR 7 Days #28 cap No Action busPIRone HCl [Buspar] 5 mg PO DAILY Acetaminophen Tab [Tylenol] 650 mg PO Q4H PRN PRN Reason: Pain Or Fever > 100.5 Discharge Medication List busPIRone HCl [Buspar] 5 mg PO DAILY 01/15/22 [History] Acetaminophen Tab [Tylenol] 650 mg PO Q4H PRN 03/21/22 [History] Cephalexin [Keflex] 500 mg PO Q6HR 7 Days #28 cap 03/23/22 [Rx] Follow up Appointment(s)/Referral(s): Garland Lopez MD [Primary Care Provider] - 1-2 days Juan A Davis NPC [Nurse Practitioner] - 1 Week Discharge Disposition: HOME SELF-CARE
--- NOTE | 2022-03-23 08:40 | PN ---
PROGRESS NOTE 26-year-old white female remains on BuSpar for anxiety, Rocephin for possible UTI, Protonix for GERD. Labs show hemoglobin 6.8 down from 6.9. She is going to get 1 unit of blood and we will get hematology consult. Still lightheaded, dizzy. Temp 98.9, respiratory rate 18, blood pressure 114/68, O2 saturation 97. Cardiovascular S1-S2. Lungs clear. GI soft. ASSESSMENT: 1. Vaginal bleeding. 2. Severe anemia, symptomatic. Hemoglobin below 6 7. She is going to get a unit of blood. Prognosis guarded. Await for Hematology consult. Follow up in the morning. MMODL / IJN: [id number] /
[2022-03-23] MEDS: PANTOPRAZOLE 40 MG/10 ML VIAL IV SCH (08:50)
[2022-03-23] MEDS: busPIRone HCl 5 MG TAB PO SCH (08:58)
[2022-03-23 09:12] VITALS: BP 126/76; PULSE 77; TEMP 97.8
== END 2022-03-23 09:20 | disposition home or self-care (01) ==
LOC: EC 16:57 → 4FBP 18:00
PROVIDERS: ADMIT Obstetrics & Gynecology; ATTEND Obstetrics & Gynecology
DX: N93.8 Other specified abnormal uterine and vaginal bleeding (principal); D50.0 Iron deficiency anemia secondary to blood loss (chronic); F41.9 Anxiety disorder, unspecified; F31.9 Bipolar disorder, unspecified; E03.9 Hypothyroidism, unspecified; E11.9 Type 2 diabetes mellitus without complications; K21.9 Gastro-esophageal reflux disease without esophagitis; R50.9 Fever, unspecified; G40.909 Epilepsy, unspecified, not intractable, without status epilepticus; G80.9 Cerebral palsy, unspecified; G61.0 Guillain-Barre syndrome; Z87.891 Personal history of nicotine dependence; Z79.899 Other long term (current) drug therapy; Z88.2 Allergy status to sulfonamides; Z91.018 Allergy to other foods; Z91.010 Allergy to peanuts; Z83.3 Family history of diabetes mellitus; Z82.49 Family history of ischemic heart disease and other diseases of the circulatory system; Z82.0 Family history of epilepsy and other diseases of the nervous system
CPT/HCPCS: 96365; 96375; 99285; 86900; 86901; 84443; 83540; 83550; 85025 ×3; 86850; 86920; 76856; 36430; G0378 ×3; P9016; J0696; C9113

== ENCOUNTER → 2022-08-06 | Outpatient (CLI) | payer OTHER ==
[2022-08-06 11:44] LABS: Anisocytosis Slight; HCT 26.1 % (34.0-46.0); HGB 7.3 gm/dL (11.4-16.0); Hypochromasia Marked; MCH 19.8 pg (25.0-35.0); MCHC 27.8 g/dL (31.0-37.0); MCV 71.2 fL (80.0-100.0); Mean Platelet Volume 9.4; Microcytosis Marked; Platelet Count 230 k/uL (150-450); Poikilocytosis Slight; RBC 3.67 m/uL (3.80-5.40); RDW 18.4 % (11.5-15.5); WBC 6.3 k/uL (3.8-10.6)
[2022-08-06 18:17] LABS: Hepatitis A Antibody IgM Nonreactive (Nonreactive); Hepatitis B Core IgM Nonreactive (Nonreactive); Hepatitis B Surface Antigen Nonreactive (Nonreactive); Hepatitis C IgG Antibody Nonreactive (Nonreactive)
[2022-08-06 18:22] LABS: % Iron Saturation 3.17 (12.00-45.00); Ferritin 4.1 ng/mL (10.0-291.0)
[2022-08-06 20:28] LABS: HIV 2 AB Non-Reactive (Non-Reactive); HIV AB P24 Non-Reactive (Non-Reactive); HIV P24 AG Non-Reactive (Non-Reactive)
== END | disposition home or self-care (01) ==
LOC: LABWHC1 11:04
PROVIDERS: ATTEND Family Medicine
DX: D64.9 Anemia, unspecified (principal)
CPT/HCPCS: 36415; 80074; 82728; 83540; 83550; 85027; 86694; 87390

== ENCOUNTER 2022-08-28 19:07 | Emergency (ER) | payer OTHER ==
[2022-08-28] MEDS ORDERED: SODIUM CHLORIDE 0.9% 1,000 ML IV STA (19:49)
[2022-08-28 20:14] LABS: Anisocytosis Moderate; Basophils % (A) 1 %; Eosinophils # (A) 0.1 k/uL (0-0.7); Eosinophils % (A) 1 %; Hypochromasia Marked; Lymphocytes # (A) 1.5 k/uL (1.0-4.8); Lymphocytes % (A) 20 %; MCH 19.5 pg (25.0-35.0); MCHC 26.8 g/dL (31.0-37.0); MCV 72.9 fL (80.0-100.0); Mean Platelet Volume 8.1; Microcytosis Marked; Monocytes # (A) 0.3 k/uL (0-1.0); Monocytes % (A) 4 %; Neutrophils # (A) 5.4 k/uL (1.3-7.7); Neutrophils % (A) 72 %; Platelet Count 236 k/uL (150-450); RBC 4.12 m/uL (3.80-5.40); RDW 20.3 % (11.5-15.5); WBC 7.4 k/uL (3.8-10.6)
[2022-08-28 20:28] LABS: ALT 21 U/L (4-34); AST 24 U/L (14-36); African American GFR (CKD) >90 (>60 ml/min/1.73 sqM); Albumin 4.6 g/dL (3.5-5.0); Alkaline Phosphatase 107 U/L (38-126); Anion Gap 7 mmol/L; Blood Urea Nitrogen 14 mg/dL (7-17); Calcium 8.9 mg/dL (8.4-10.2); Carbon Dioxide 27 mmol/L (22-30); Chloride 105 mmol/L (98-107); Glucose 68 mg/dL (74-99); Non-African American GFR(CKD) >90 (>60 ml/min/1.73 sqM); Potassium 4.2 mmol/L (3.5-5.1); Sodium 139 mmol/L (137-145); Total Bilirubin 0.3 mg/dL (0.2-1.3); Total Protein 7.4 g/dL (6.3-8.2)
[2022-08-28 20:35] LABS: Appearance,Urine Cloudy (Clear); Bilirubin,Urine Negative (Negative); Blood,Urine Negative (Negative); Color,Urine Yellow; Glucose,Urine (UA) Negative (Negative); Ketones,Urine Negative (Negative); Leukocyte Esterase,Urine Large (Negative); Mucus,Urine Rare /hpf; Nitrite,Urine Negative (Negative); PH, Urine 6.5 (5.0-8.0); Protein,Urine Trace (Negative); RBC,Urine 1 /hpf (0-5); Specific Gravity,Urine 1.025 (1.001-1.035); Squamous Epithelial Cell,Urine 12 /hpf (0-4); Urobilinogen,Urine <2.0 mg/dL (<2.0); WBC,Urine 23 /hpf (0-5)
[2022-08-28 20:48] LABS: HCG,Quantitative Serum <2.4 mIU/mL
[2022-08-28 21:07] VITALS: RESP 16
--- NOTE | 2022-08-28 21:37 | US ---
EXAMINATION TYPE: US transvaginal DATE OF EXAM: 08/28/2022 COMPARISON: 02/10/22 CLINICAL HISTORY: pelvic pain, poss . pelvic pain x 1 week midline. hCG was negative. , 2 D&C's. TECHNIQUE: Transvaginal sonographic images of the pelvis were acquired. Date of LMP: 07/05/22 EXAM MEASUREMENTS: Uterus: 9.7 x 5.3 x 4.7 cm Endometrial Stripe: 1.1 cm Right Ovary: 3.7 x 2.4 x 2.4 cm Left Ovary: 3.6 x 3.1 x 2.8 cm 1. Uterus: Anteverted wnl 2. Endometrium: Heterogeneous 3. Right Ovary: wnl 4. Left Ovary: Hyperechoic area seen measuring 1.5 x 1.2 x 1.0cm Spectral, color and waveform doppler imaging shows good arterial and venous flow within the ovaries ; there is no evidence for ovarian torsion. 5. Bilateral Adnexa: wnl 6. Posterior cul-de-sac: Small amount of free fluid seen. IMPRESSION: No evidence of intrauterine gestational sac, correlate with B-hCG. This can be seen in early pregnanc y, ectopic and spontaneous . Follow up pelvic ultrasound in 5-7 days and serial bet a hCG studies are recommended.
[2022-08-28] MEDS ORDERED: NITROFURANTOIN MONOHYD/M-CRYST 100 MG CAP PO STA (21:51)
--- NOTE | 2022-08-28 21:53 | ED ---
Abdominal Pain HPI - General Chief Complaint: Abdominal Pain Stated Complaint: Lower Abd Pain Time Seen by Provider: 08/28/22 19:39 Source: patient Mode of arrival: ambulatory Limitations: no limitations - History of Present Illness Initial Comments: Patient is a 26-year-old female presenting with chief complaint of pelvic pain. Patient admits to [facility] pelvic pain for the last 3 days. Pain is cramping in nature. Patient also has not had a menstrual cycle since 07/05/22. She states there is a chance of . Patient denies any chance of her concern for STI's. She denies any vaginal bleeding or discharge. No fever or chills. No nausea or vomiting. No dysuria or hematuria. No flank or back pain. No chest pain or difficulty breathing. No diarrhea, hematochezia, melena. - Related Data Home Medications Medication Instructions Recorded Confirmed busPIRone HCl [Buspar] 5 mg PO DAILY 01/15/22 03/21/22 Acetaminophen Tab [Tylenol] 650 mg PO Q4H PRN 03/21/22 03/21/22 Previous Rx's Medication Instructions Recorded Cephalexin [Keflex] 500 mg PO Q6HR 7 Days #28 cap 03/23/22 Nitrofurantoin Monohyd/M-Cryst 100 mg PO Q12HR 5 Days #10 cap 08/28/22 [Macrobid] Allergies Allergy/AdvReac Type Severity Reaction Status Date / Time nut - unspecified Allergy Anaphylaxis Verified 08/28/22 19:24 peanut Allergy Anaphylaxis Verified 08/28/22 19:24 Sulfa (Sulfonamide Allergy Rash/Hives Verified 08/28/22 19:24 Antibiotics) tree nut [Nut] Allergy Anaphylaxis Verified 08/28/22 19:24 Review of Systems ROS Statement: Those systems with pertinent positive or pertinent negative responses have been documented in the HPI. ROS Other: All systems not noted in ROS Statement are negative. Past Medical History Past Medical History: Seizure Disorder, Thyroid Disorder Additional Past Medical History / Comment(s): cerebral palsy, gullian barre in 2010, multiple miscarriages, anemia History of Any Multi-Drug Resistant Organisms: None Reported Past Surgical History: No Surgical Hx Reported Additional Past Surgical History / Comment(s): D&C Past Anesthesia/Blood Transfusion Reactions: No Reported Reaction Additional Past Anesthesia/Blood Transfusion Reaction / Comment(s): FATHER- TAKES LONGER TO WAKE UP WITH ANESTHESIA". "takes longer to wake up" Past Psychological History: Anxiety, Bipolar Smoking Status: Never smoker Past Alcohol Use History: None Reported Past Drug Use History: None Reported - Past Family History Mother Family Medical History: Diabetes Mellitus, Hypertension, Seizure Disorder, Supraventricular Tachycardia (SVT) Additional Family Medical History / Comment(s): SVT Father History Unknown: Yes General Exam Limitations: no limitations General appearance: alert, in no apparent distress Head exam: Present: atraumatic, normocephalic, normal inspection Eye exam: Present: normal appearance Neck exam: Present: normal inspection Respiratory exam: Present: normal lung sounds bilaterally. Absent: respiratory distress, wheezes, rales, rhonchi, stridor Cardiovascular Exam: Present: regular rate, normal rhythm, normal heart sounds. Absent: systolic murmur, diastolic murmur, rubs, gallop, clicks GI/Abdominal exam: Present: soft. Absent: distended, tenderness, guarding, rebound, rigid Neurological exam: Present: alert, oriented X3, CN II-XII intact Psychiatric exam: Present: normal affect, normal mood Skin exam: Present: warm, dry, intact, normal color. Absent: rash Course Vital Signs 08/28/22 08/28/22 08/28/22 19:22 21:06 22:22 Temperature 97.8 F 98.0 F 97.9 F Pulse Rate 80 75 73 Respiratory 18 16 16 Rate Blood Pressure 130/53 126/75 123/73 O2 Sat by Pulse 100 100 99 Oximetry Medical Decision Making - Medical Decision Making Patient is a 26-year-old female presenting for evaluation of centralized pelvic pain for the last 3 days. No vaginal discharge or bleeding. No nausea or vomiting. No fever or chills. Patient states there is a chance she could be , pain 07/05/22. Physical examination is unremarkable. Lab work shows hemoglobin of 8.0, this is trending upward from previous severe anemia due to heavy vaginal bleeding. CMP is unremarkable. Serum hCG is less than 2.4. Urine shows signs of UTI, there are large leukocytes and 23 urine WBC. Transvaginal ultrasound shows no evidence of intrauterine station also neck. There is good arterial and venous flow within the ovaries. Patient is educated on these findings, will be treated for UTI with Macrobid. She is instructed to follow-up with OBGYN regarding irregular menstrual cycle.Follow-up with PCP. R eport back to ER with any new or worsening symptoms. Discussed return parameters and answered all questions. Patient conveyed verbal understanding and agreed to the plan. I discussed this case in detail with my attending Dr. Burgess. - Lab Data Result diagrams: 08/28/22 19:55 08/28/22 19:58 Lab Results 08/28/22 08/28/22 08/28/22 Range/Units 19:55 19:58 19:58 WBC 7.4 (3.8-10.6) k/uL RBC 4.12 (3.80-5.40) m/uL Hgb 8.0 L (11.4-16.0) gm/dL Hct 30.0 L (34.0-46.0) % MCV 72.9 L (80.0-100.0) fL MCH 19.5 L (25.0-35.0) pg MCHC 26.8 L (31.0-37.0) g/dL RDW 20.3 H (11.5-15.5) % Plt Count 236 (150-450) k/uL MPV 8.1 Neutrophils % 72 % Lymphocytes % 20 % Monocytes % 4 % Eosinophils % 1 % Basophils % 1 % Neutrophils # 5.4 (1.3-7.7) k/uL Lymphocytes # 1.5 (1.0-4.8) k/uL Monocytes # 0.3 (0-1.0) k/uL Eosinophils # 0.1 (0-0.7) k/uL Basophils # 0.0 (0-0.2) k/uL Hypochromasia Marked Anisocytosis Moderate Microcytosis Marked Sodium 139 (137-145) mmol/L Potassium 4.2 (3.5-5.1) mmol/L Chloride 105 (98-107) mmol/L Carbon Dioxide 27 (22-30) mmol/L Anion Gap 7 mmol/L BUN 14 (7-17) mg/dL Creatinine 0.74 (0.52-1.04) mg/dL Est GFR (CKD-EPI)AfAm >90 (>60 ml/min/1.73 sqM) Est GFR (CKD-EPI)NonAf >90 (>60 ml/min/1.73 sqM) Glucose 68 L (74-99) mg/dL Plasma Lactic Acid Milad (0.7-2.0) mmol/L Calcium 8.9 (8.4-10.2) mg/dL Total Bilirubin 0.3 (0.2-1.3) mg/dL AST 24 (14-36) U/L ALT 21 (4-34) U/L Alkaline Phosphatase 107 (38-126) U/L Total Protein 7.4 (6.3-8.2) g/dL Albumin 4.6 (3.5-5.0) g/dL HCG, Quant <2.4 mIU/mL Urine Color Yellow Urine Appearance Cloudy H (Clear) Urine pH 6.5 (5.0-8.0) Ur Specific [place] 1.025 (1.001-1.035) Urine Protein Trace H (Negative) Urine Glucose (UA) Negative (Negative) Urine Ketones Negative (Negative) Urine Blood Negative (Negative) Urine Nitrite Negative (Negative) Urine Bilirubin Negative (Negative) Urine Urobilinogen <2.0 (<2.0) mg/dL Ur Leukocyte Esterase Large H (Negative) Urine RBC 1 (0-5) /hpf Urine WBC 23 H (0-5) /hpf Ur Squamous Epith Cells 12 H (0-4) /hpf Urine Mucus Rare H (None) /hpf Urine HCG, Qual (Not Detectd) 08/28/22 08/28/22 Range/Units 19:58 19:58 WBC (3.8-10.6) k/uL RBC (3.80-5.40) m/uL Hgb (11.4-16.0) gm/dL Hct (34.0-46.0) % MCV (80.0-100.0) fL MCH (25.0-35.0) pg MCHC (31.0-37.0) g/dL RDW (11.5-15.5) % Plt Count (150-450) k/uL MPV Neutrophils % % Lymphocytes % % Monocytes % % Eosinophils % % Basophils % % Neutrophils # (1.3-7.7) k/uL Lymphocytes # (1.0-4.8) k/uL Monocytes # (0-1.0) k/uL Eosinophils # (0-0.7) k/uL Basophils # (0-0.2) k/uL Hypochromasia Anisocytosis Microcytosis Sodium (137-145) mmol/L Potassium (3.5-5.1) mmol/L Chloride (98-107) mmol/L Carbon Dioxide (22-30) mmol/L Anion Gap mmol/L BUN (7-17) mg/dL Creatinine (0.52-1.04) mg/dL Est GFR (CKD-EPI)AfAm (>60 ml/min/1.73 sqM) Est GFR (CKD-EPI)NonAf (>60 ml/min/1.73 sqM) Glucose (74-99) mg/dL Plasma Lactic Acid Milad 1.0 (0.7-2.0) mmol/L Calcium (8.4-10.2) mg/dL Total Bilirubin (0.2-1.3) mg/dL AST (14-36) U/L ALT (4-34) U/L Alkaline Phosphatase (38-126) U/L Total Protein (6.3-8.2) g/dL Albumin (3.5-5.0) g/dL HCG, Quant mIU/mL Urine Color Urine Appearance (Clear) Urine pH (5.0-8.0) Ur Specific [place] (1.001-1.035) Urine Protein (Negative) Urine Glucose (UA) (Negative) Urine Ketones (Negative) Urine Blood (Negative) Urine Nitrite (Negative) Urine Bilirubin (Negative) Urine Urobilinogen (<2.0) mg/dL Ur Leukocyte Esterase (Negative) Urine RBC (0-5) /hpf Urine WBC (0-5) /hpf Ur Squamous Epith Cells (0-4) /hpf Urine Mucus (None) /hpf Urine HCG, Qual Not Detected (Not Detectd) Disposition Clinical Impression: UTI (urinary tract infection) Disposition: HOME SELF-CARE Condition: Good Instructions (If sedation given, give patient instructions): Urinary Tract Infection in Women (ED) Additional Instructions: Follow up with WARRANTY ADMINISTRATOR. Report back to ER with any new or worsening symptoms. Take medication as prescribed. Prescriptions: Nitrofurantoin Monohyd/M-Cryst [Macrobid] 100 mg PO Q12HR 5 Days #10 cap Is patient prescribed a controlled substance at d/c from ED?: No Referrals: Garland Lopez MD [Primary Care Provider] - 1-2 days Mago Randle MD [STAFF PHYSICIAN] - 1-2 days Time of Disposition: 21:53
[2022-08-28 22:22] VITALS: BP 123/73; PULSE 73; TEMP 97.9
== END 2022-08-28 22:27 | disposition home or self-care (01) ==
LOC: EC 19:07
DX: N39.0 Urinary tract infection, site not specified (principal); E07.9 Disorder of thyroid, unspecified; F41.9 Anxiety disorder, unspecified; F31.9 Bipolar disorder, unspecified; Z79.83 Long term (current) use of bisphosphonates; Z91.010 Allergy to peanuts; Z91.018 Allergy to other foods; Z88.2 Allergy status to sulfonamides; Z79.899 Other long term (current) drug therapy
CPT/HCPCS: 36415; 76830; 80053; 81001; 81025; 83605; 84702; 85025; 87086; 96360; 99284

== ENCOUNTER 2022-09-30 09:30 | Emergency (ER) | payer OTHER ==
[2022-09-30] MEDS ORDERED: DEXAMETHASONE SOD PHOSPHATE 10 MG/ML 1 ML VIAL IM STA (09:58)
--- NOTE | 2022-09-30 10:13 | ED ---
ENT HPI - General Chief complaint: ENT Stated complaint: Swollen Tonsils Time Seen by Provider: 09/30/22 09:35 Source: patient, RN notes reviewed Mode of arrival: ambulatory Limitations: no limitations - History of Present Illness Initial comments: This is a 26-year-old female who presents to the emergency department for a sore throat and losing her voice. Patient states that this began 2 days ago. She feels like her tonsils may be swollen. She has no significant history of strep throat or similar symptoms in the past. Denies any coughing or congestion. Also denies any sick contacts. Denies any fevers, chills, cough, dyspnea, chest pain, palpitations, abdominal pain, nausea, vomiting, diarrhea, back pain, or headaches. MD complaint: sore throat Onset/Timin -: days(s) - Related Data Home Medications Medication Instructions Recorded Confirmed busPIRone HCl [Buspar] 5 mg PO DAILY 01/15/22 03/21/22 Acetaminophen Tab [Tylenol] 650 mg PO Q4H PRN 03/21/22 03/21/22 Previous Rx's Medication Instructions Recorded Cephalexin [Keflex] 500 mg PO Q6HR 7 Days #28 cap 03/23/22 Nitrofurantoin Monohyd/M-Cryst 100 mg PO Q12HR 5 Days #10 cap 08/28/22 [Macrobid] Cephalexin [Keflex] 500 mg PO Q12HR 10 Days #20 cap 09/30/22 predniSONE 50 mg PO DAILY 5 Days #5 tablet 09/30/22 Allergies Allergy/AdvReac Type Severity Reaction Status Date / Time nut - unspecified Allergy Anaphylaxis Verified 09/30/22 09:34 peanut Allergy Anaphylaxis Verified 09/30/22 09:34 Sulfa (Sulfonamide Allergy Rash/Hives Verified 09/30/22 09:34 Antibiotics) tree nut [Nut] Allergy Anaphylaxis Verified 09/30/22 09:34 Review of Systems ROS Statement: Those systems with pertinent positive or pertinent negative responses have been documented in the HPI. ROS Other: All systems not noted in ROS Statement are negative. Past Medical History Past Medical History: Seizure Disorder, Thyroid Disorder Additional Past Medical History / Comment(s): cerebral palsy, gullian barre in 2010, multiple miscarriages, anemia History of Any Multi-Drug Resistant Organisms: None Reported Past Surgical History: No Surgical Hx Reported Additional Past Surgical History / Comment(s): D&C Past Anesthesia/Blood Transfusion Reactions: No Reported Reaction Additional Past Anesthesia/Blood Transfusion Reaction / Comment(s): FATHER- TAKES LONGER TO WAKE UP WITH ANESTHESIA". "takes longer to wake up" Past Psychological History: Anxiety, Bipolar Smoking Status: Never smoker Past Alcohol Use History: None Reported Past Drug Use History: None Reported - Past Family History Mother Family Medical History: Diabetes Mellitus, Hypertension, Seizure Disorder, Supraventricular Tachycardia (SVT) Additional Family Medical History / Comment(s): SVT Father History Unknown: Yes General Exam Limitations: no limitations General appearance: alert, in no apparent distress, other Head exam: Present: atraumatic, normocephalic, normal inspection Expanded Mouth exam: Present: muffled voice Throat exam: tonsillar erythema, tonsillomegaly Respiratory exam: Present: normal lung sounds bilaterally. Absent: respiratory distress, wheezes, rales, rhonchi, stridor Cardiovascular Exam: Present: regular rate, normal rhythm, normal heart sounds. Absent: systolic murmur, diastolic murmur, rubs, gallop, clicks Neurological exam: Present: alert, oriented X3, CN II-XII intact Psychiatric exam: Present: normal affect, normal mood Skin exam: Present: warm, dry, intact, normal color. Absent: rash Course Vital Signs 09/30/22 09/30/22 09:32 11:20 Temperature 97.9 F 98.3 F Pulse Rate 76 80 Respiratory 16 18 Rate Blood Pressure 132/81 122/58 O2 Sat by Pulse 100 98 Oximetry Medical Decision Making - Medical Decision Making This is a 26-year-old female who presents to the emergency department after losing her voice with an associated sore throat. Patient is positive for strep throat. She was given a dose of IM Decadron in the emergency department. Rx for Keflex and prednisone provided with dosing instructions reviewed. Advised hot liquids and [id number] throat lozenges. Return precautions reviewed in depth, the patient is instructed to return to the emergency department with any new, worsening, or concerning symptoms. Patient verbalized understanding. This case was discussed in detail with the attending ED physician. Presentation, findings, and treatment plan discussed in detail as well. - Lab Data Lab Results 09/30/22 09/30/22 Range/Units 09:43 09:54 Influenza Type A (PCR) Not Detected (Not Detectd) Influenza Type B (PCR) Not Detected (Not Detectd) RSV (PCR) Not Detected (Not Detectd) SARS-CoV-2 (PCR) Not Detected (Not Detectd) Group A Strep (PCR) DETECTED A (Not Detectd) Disposition Clinical Impression: Strep pharyngitis Disposition: HOME SELF-CARE Instructions (If sedation given, give patient instructions): Strep Throat (ED) Additional Instructions: Return to the emergency department with any new, worsening, or concerning symptoms. Take the antibiotic as prescribed for 10 days. Take the prednisone daily for 5 days. You can continue to use [id number] anesthetics in the throat to help with additional pain. Follow up with your primary care provider in 1-2 days. Prescriptions: Cephalexin [Keflex] 500 mg PO Q12HR 10 Days #20 cap predniSONE 50 mg PO DAILY 5 Days #5 tablet Is patient prescribed a controlled substance at d/c from ED?: No Referrals: Garland Lopez MD [Primary Care Provider] - 1-2 days
[2022-09-30 11:40] VITALS: BP 122/58; PULSE 80; RESP 18; TEMP 98.3
== END 2022-09-30 11:20 | disposition home or self-care (01) ==
LOC: EC 09:30
DX: J02.0 Streptococcal pharyngitis (principal); F41.9 Anxiety disorder, unspecified; F31.9 Bipolar disorder, unspecified; Z88.3 Allergy status to other anti-infective agents; Z88.2 Allergy status to sulfonamides; Z20.822 Contact with and (suspected) exposure to COVID-19
CPT/HCPCS: 87651; 87636; 99283; 96372; J1100

== ENCOUNTER 2023-01-05 02:43 | Emergency (ER) | payer OTHER ==
[2023-01-05 02:50] VITALS: BP 121/68; PULSE 95; RESP 16; TEMP 98.5
[2023-01-05 02:51] LABS: Glucose,Whole Blood 133 mg/dL (70-110)
[2023-01-05] MEDS ORDERED: ACETAMINOPHEN TAB 500 MG TAB PO STA (03:03)
[2023-01-05 04:16] LABS: Appearance,Urine Cloudy (Clear); Bilirubin,Urine Negative (Negative); Blood,Urine Negative (Negative); Color,Urine Yellow; Glucose,Urine (UA) Negative (Negative); Ketones,Urine Negative (Negative); Leukocyte Esterase,Urine Large (Negative); Mucus,Urine Rare /hpf; Nitrite,Urine Negative (Negative); Protein,Urine Trace (Negative); RBC,Urine 1 /hpf (0-5); Specific Gravity,Urine 1.034 (1.001-1.035); Squamous Epithelial Cell,Urine 16 /hpf (0-4); WBC,Urine 6 /hpf (0-5)
[2023-01-05] MEDS ORDERED: CEPHALEXIN 500 MG CAP PO STA (04:56)
--- NOTE | 2023-01-05 04:57 | ED ---
General Adult HPI - General Chief complaint: Urogenital Stated complaint: Abd Pain Time Seen by Provider: 01/05/23 02:52 Source: patient, RN notes reviewed, old records reviewed Mode of arrival: ambulatory Limitations: no limitations - History of Present Illness Initial comments: Patient is a 27-year-old female with past medical history remarkable for seizure disorder, cerebral palsy, currently 7 weeks approximately a UTI symptoms. Has a history of chronic UTIs. States she has some lower abdominal discomfort which is why she presents today. Has not been on antibiotics. Has not been able follow-up with her PCP obtain urinalysis last week. Is seeking antibiotics. Denies vaginal discharge or bleeding. Denies any significant cramping. Denies any chest pain or shortness of breath. His no other acute complaint at this time. Has not been able to see here [facility] [employer]. Does have a confirmed intrauterine on prior ultrasound performed here. Denies any fevers or sick contacts. - Related Data Home Medications Medication Instructions Recorded Confirmed busPIRone HCl [Buspar] 5 mg PO DAILY 01/15/22 03/21/22 Acetaminophen Tab [Tylenol] 650 mg PO Q4H PRN 03/21/22 03/21/22 Previous Rx's Medication Instructions Recorded Cephalexin [Keflex] 500 mg PO Q6HR 7 Days #28 cap 03/23/22 Nitrofurantoin Monohyd/M-Cryst 100 mg PO Q12HR 5 Days #10 cap 08/28/22 [Macrobid] Cephalexin [Keflex] 500 mg PO Q12HR 10 Days #20 cap 09/30/22 predniSONE 50 mg PO DAILY 5 Days #5 tablet 09/30/22 Cephalexin [Keflex] 500 mg PO Q12HR 5 Days #10 cap 01/05/23 Allergies Allergy/AdvReac Type Severity Reaction Status Date / Time nut - unspecified Allergy Anaphylaxis Verified 12/19/22 01:17 peanut Allergy Anaphylaxis Verified 12/19/22 01:17 Sulfa (Sulfonamide Allergy Rash/Hives Verified 12/19/22 01:17 Antibiotics) tree nut [Nut] Allergy Anaphylaxis Verified 12/19/22 01:17 Review of Systems ROS Statement: Those systems with pertinent positive or pertinent negative responses have been documented in the HPI. Review of Systems: CONST: Denies fever EYES: Denies blurry vision ENT: Denies nasal congestion C/V: Denies Chest pain RESP: Denies shortness of breath GI: Endorses suprapubic discomfort. : Denies dysuria SKIN: Denies rash. MSK: Denies joint pain. NEURO: Denies headache ROS Other: All systems not noted in ROS Statement are negative. Past Medical History Past Medical History: Seizure Disorder, Thyroid Disorder Additional Past Medical History / Comment(s): cerebral palsy, gullian barre in 2011, multiple miscarriages, anemia. History of Any Multi-Drug Resistant Organisms: None Reported Past Surgical History: No Surgical Hx Reported Additional Past Surgical History / Comment(s): D&C Past Anesthesia/Blood Transfusion Reactions: No Reported Reaction Additional Past Anesthesia/Blood Transfusion Reaction / Comment(s): FATHER- TAKES LONGER TO WAKE UP WITH ANESTHESIA". "takes longer to wake up" Past Psychological History: Anxiety, Bipolar Smoking Status: Never smoker Past Alcohol Use History: None Reported Past Drug Use History: None Reported - Past Family History Mother Family Medical History: Diabetes Mellitus, Hypertension, Seizure Disorder, Supraventricular Tachycardia (SVT) Additional Family Medical History / Comment(s): SVT Father History Unknown: Yes General Exam - General Exam Comments Initial Comments: General: Appears in no acute distress. HEAD: Normal with no signs of head trauma. EYES: EOMI ENT: Hearing grossly intact RESPIRATORY: Clear breath sounds bilaterally. No wheezes, rales, or rhonchi. C/V: Regular rate and rhythm. S1 and S2 auscultated ABD: Abd is soft, nontender, nondistended. No guarding. EXT: no obvious deformity SKIN: No rashes or lesions observed on exposed skin. NEURO: Alert and oriented x 4. Limitations: no limitations Course Vital Signs 01/05/23 02:45 Temperature 98.5 F Pulse Rate 95 Respiratory 16 Rate Blood Pressure 121/68 O2 Sat by Pulse 100 Oximetry Medical Decision Making - Medical Decision Making Was pt. sent in by a medical professional or institution (, PA, KEY PERSON, urgent care, hospital, or [facility]...) When possible be specific @ -No Did you speak to anyone other than the patient for history (EMS, parent, family, police, friend...)? What history was obtained from this source @ -No Did you review nursing and triage notes (agree or disagree)? Why? @ -I reviewed and agree with nursing and triage notes Were old charts reviewed (outside hosp., previous admission, EMS record, old EKG, old radiological studies, urgent care reports/EKG's, [facility] records)? Report findings @ -Old ultrasound was reviewed confirming definitive intrauterine from December 19. Differential Diagnosis (chest pain, altered mental status, abdominal pain women, abdominal pain men, vaginal bleeding, weakness, fever, dyspnea, syncope, headache, dizziness, GI bleed, back pain, seizure, CVA, palpatations, mental health, musculoskeletal)? @ -UTI, abdominal pain. This list is not all inclusive. EKG interpreted by me (3pts min.). @ -None done X-rays interpreted by me (1pt min.). @ -None done CT interpreted by me (1pt min.). @ -None done U/S interpreted by me (1pt. min.). @ -None done What testing was considered but not performed or refused? (CT, X-rays, U/S, labs)? Why? @ -None What meds were considered but not given or refused? Why? @ -None Did you discuss the management of the patient with other professionals (professionals i.e. , PA, KEY PERSON, lab, RT, psych nurse, social work supervisor, nutrition services manager, teacher, radiological defense officer, case monitor)? Give summary @ -No Was smoking cessation discussed for >3mins.? @ -No Was critical care preformed (if so, how long)? @ -No Were there social determinants of health that impacted care today? How? (Homelessness, low income, unemployed, alcoholism, drug addiction, transportation, low edu. Level, literacy, decrease access to med. care, usp, rehab)? @ -No Was there de-escalation of care discussed even if they declined (Discuss DNR or withdrawal of care, Hospice)? DNR status @ -No What co-morbidities impacted this encounter? (DM, HTN, Smoking, COPD, CAD, Cancer, CVA, ARF, Chemo, Hep., AIDS, mental health diagnosis, sleep apnea, morbid obesity)? @ -None Was patient admitted / discharged? Hospital course, mention meds given and route, prescriptions, significant lab abnormalities, going to OR and other pertinent info. @ -Based on the patient's presentation and physical exam, I'm concerned for UTI for the patient. She is having a typical symptoms, has a history of UTIs, and is seeking treatment. No other acute complaints this time. Exam unremarkable. Vital signs within acceptable limits. Patient will be given a Tylenol for analgesia. We'll obtain a urinalysis. She has no signs or symptoms of miscarriage with no evidence of vaginal bleeding or discharge. She is approximate 7 weeks . Does have a history of multiple miscarriages but states this is her typical UTI type symptoms. Urinalysis shows borderline UTI. However with her symptoms I did recommend that we treat her with Keflex. She was in agreement this plan. Strict return precautions discussed. She'll follow-up with her PCP. Recommend she follow up with her [facility]. I will provide the patient with a prescription for Keflex. I instructed the patient to follow up with their PCP in the next 1-3 days. I explained that the patient should return to the emergency department if they experience any worsening symptoms. Strict return precautions were discussed with the patient. The patient expressed understanding of these instructions. I answered all questions that the patient had. The patient was discharged home in good condition with their prescriptions and follow up information. Undiagnosed new problem with uncertain prognosis? @ -No Drug Therapy requiring intensive monitoring for toxicity (Heparin, Nitro, Insulin, Cardizem)? @ -No Were any procedures done? @ -No Diagnosis/symptom? @ -UTI Acute, or Chronic, or Acute on Chronic? @ -Acute Uncomplicated (without systemic symptoms) or Complicated (systemic symptoms)? @ -Uncomplicated Side effects of treatment? @ -No Exacerbation, Progression, or Severe Exacerbation? @ -No Poses a threat to life or bodily function? How? (Chest pain, [place], [place], pneumonia, PE, COPD, DKA, ARF, appy, cholecystitis, CVA, Diverticulitis, Homicidal, Suicidal, threat to staff... and all critical care pts) @ -No - Lab Data Lab Results 01/05/23 01/05/23 Range/Units 02:49 03:16 POC Glucose (mg/dL) 133 H (70-110) mg/dL POC Glu [employer] Urine Color Yellow Urine Appearance Cloudy H (Clear) Urine pH 6.0 (5.0-8.0) Ur Specific Dexter 1.034 (1.001-1.035) Urine Protein Trace H (Negative) Urine Glucose (UA) Negative (Negative) Urine Ketones Negative (Negative) Urine Blood Negative (Negative) Urine Nitrite Negative (Negative) Urine Bilirubin Negative (Negative) Urine Urobilinogen 2.0 (<2.0) mg/dL Ur Leukocyte Esterase Large H (Negative) Urine RBC 1 (0-5) /hpf Urine WBC 6 H (0-5) /hpf Ur Squamous Epith Cells 16 H (0-4) /hpf Urine Mucus Rare H (None) /hpf Disposition Clinical Impression: UTI (urinary tract infection) Disposition: HOME SELF-CARE Condition: Good Instructions (If sedation given, give patient instructions): Urinary Tract Infection in Women (ED) Prescriptions: Cephalexin [Keflex] 500 mg PO Q12HR 5 Days #10 cap Is patient prescribed a controlled substance at d/c from ED?: No Referrals: Garland Lopez MD [Primary Care Provider] - 1-2 days Zulay Sanchez MD [STAFF PHYSICIAN] - 1-2 days Time of Disposition: 04:50
== END 2023-01-05 05:13 | disposition home or self-care (01) ==
LOC: EC 02:43
DX: O23.41 Unspecified infection of urinary tract in pregnancy, first trimester (principal); N39.0 Urinary tract infection, site not specified; O99.341 Other mental disorders complicating pregnancy, first trimester; F31.9 Bipolar disorder, unspecified; F41.9 Anxiety disorder, unspecified; Z88.1 Allergy status to other antibiotic agents; Z88.2 Allergy status to sulfonamides; Z91.018 Allergy to other foods; Z3A.01 Less than 8 weeks gestation of pregnancy
CPT/HCPCS: 36415; 81001; 99283

== ENCOUNTER 2023-01-26 23:03 | Emergency (ER) | payer OTHER ==
[2023-01-26 23:09] VITALS: TEMP 98.1
[2023-01-27 00:39] LABS: ALT 17 U/L (4-34); AST 19 U/L (14-36); African American GFR (CKD) >90 (>60 ml/min/1.73 sqM); Albumin 3.6 g/dL (3.5-5.0); Alkaline Phosphatase 90 U/L (38-126); Anion Gap 8 mmol/L; Blood Urea Nitrogen 14 mg/dL (7-17); Calcium 8.5 mg/dL (8.4-10.2); Carbon Dioxide 22 mmol/L (22-30); Chloride 105 mmol/L (98-107); Glucose 96 mg/dL (74-99); Lipase 143 U/L (23-300); Magnesium 1.8 mg/dL (1.6-2.3); Non-African American GFR(CKD) >90 (>60 ml/min/1.73 sqM); Potassium 3.7 mmol/L (3.5-5.1); Sodium 135 mmol/L (137-145); Total Bilirubin 0.2 mg/dL (0.2-1.3); Total Protein 6.6 g/dL (6.3-8.2)
--- NOTE | 2023-01-27 00:41 | ED ---
General Adult HPI - General Chief complaint: Abdominal Pain Stated complaint: Vaginal bleeding/10 weeks preg Time Seen by Provider: 01/26/23 23:15 Source: patient Mode of arrival: ambulatory Limitations: no limitations - History of Present Illness Initial comments: this is a 27-year-old female with a past medical history including multiple previous miscarriages, presents emergency department for possible vaginal bleeding. The patient stated that she went to the bathroom to urinate today and she noted some light pink spotting on the toilet paper. The patient denied any significant bleeding but did report that she had a second episode when she was at home.the patient stated that she had some minor cramping in the lower abdomen but denied any other acute pain. The patient did state that the pain was similar to her previous miscarriages. The patient denied any lightheadedness or dizziness. The patient was resting in bed comfortably. - Related Data Home Medications Medication Instructions Recorded Confirmed busPIRone HCl [Buspar] 5 mg PO DAILY 01/15/22 03/21/22 Acetaminophen Tab [Tylenol] 650 mg PO Q4H PRN 03/21/22 03/21/22 Previous Rx's Medication Instructions Recorded Cephalexin [Keflex] 500 mg PO Q6HR 7 Days #28 cap 03/23/22 Nitrofurantoin Monohyd/M-Cryst 100 mg PO Q12HR 5 Days #10 cap 08/28/22 [Macrobid] Cephalexin [Keflex] 500 mg PO Q12HR 10 Days #20 cap 09/30/22 predniSONE 50 mg PO DAILY 5 Days #5 tablet 09/30/22 Cephalexin [Keflex] 500 mg PO Q12HR 5 Days #10 cap 01/05/23 Allergies Allergy/AdvReac Type Severity Reaction Status Date / Time nut - unspecified Allergy Anaphylaxis Verified 01/26/23 23:09 peanut Allergy Anaphylaxis Verified 01/26/23 23:09 Sulfa (Sulfonamide Allergy Rash/Hives Verified 01/26/23 23:09 Antibiotics) tree nut [Nut] Allergy Anaphylaxis Verified 01/26/23 23:09 Review of Systems ROS Statement: Those systems with pertinent positive or pertinent negative responses have been documented in the HPI. ROS Other: All systems not noted in ROS Statement are negative. Past Medical History Past Medical History: Seizure Disorder, Thyroid Disorder Additional Past Medical History / Comment(s): cerebral palsy, gullian barre in 2011, multiple miscarriages, anemia. History of Any Multi-Drug Resistant Organisms: None Reported Past Surgical History: No Surgical Hx Reported Additional Past Surgical History / Comment(s): D&C Past Anesthesia/Blood Transfusion Reactions: No Reported Reaction Additional Past Anesthesia/Blood Transfusion Reaction / Comment(s): FATHER- TAKES LONGER TO WAKE UP WITH ANESTHESIA". "takes longer to wake up" Past Psychological History: Anxiety, Bipolar Smoking Status: Never smoker Past Alcohol Use History: None Reported Past Drug Use History: None Reported - Past Family History Mother Family Medical History: Diabetes Mellitus, Hypertension, Seizure Disorder, Supraventricular Tachycardia (SVT) Additional Family Medical History / Comment(s): SVT Father History Unknown: Yes General Exam Limitations: no limitations General appearance: alert, in no apparent distress Head exam: Present: atraumatic, normocephalic, normal inspection Eye exam: Present: normal appearance, PERRL Pupils: Present: normal accommodation ENT exam: Present: normal exam, normal oropharynx, mucous membranes moist Neck exam: Present: normal inspection, full ROM Respiratory exam: Present: normal lung sounds bilaterally Cardiovascular Exam: Present: regular rate, normal rhythm, normal heart sounds GI/Abdominal exam: Present: soft, tenderness (minor tenderness to palpation noted to the suprapubic region), normal bowel sounds Rectal exam: Present: deferred Extremities exam: Present: normal inspection, full ROM Back exam: Present: normal inspection, full ROM Neurological exam: Present: alert, oriented X3, CN II-XII intact Psychiatric exam: Present: normal affect, normal mood Skin exam: Present: warm, dry Course Vital Signs 01/26/23 01/27/23 23:05 01:09 Temperature 98.1 F Pulse Rate 93 82 Respiratory 20 18 Rate Blood Pressure 146/90 129/74 O2 Sat by Pulse 99 100 Oximetry Medical Decision Making - Medical Decision Making Was pt. sent in by a medical professional or institution (, PA, GATE WATCHMAN, urgent care, hospital, or long term...) When possible be specific @ -No Did you speak to anyone other than the patient for history (EMS, parent, family, police, friend...)? What history was obtained from this source @ -No Did you review nursing and triage notes (agree or disagree)? Why? @ -I reviewed and agree with nursing and triage notes Were old charts reviewed (outside hosp., previous admission, EMS record, old EKG, old radiological studies, urgent care reports/EKG's, long term records)? Report findings @ -No old charts were reviewed Differential Diagnosis (chest pain, altered mental status, abdominal pain women, abdominal pain men, vaginal bleeding, weakness, fever, dyspnea, syncope, headache, dizziness, GI bleed, back pain, seizure, CVA, palpatations, mental health)? @ -Spontaneous , vaginal bleeding in , UTI EKG interpreted by me (3pts min.). @ -None X-rays interpreted by me (1pt min.). @ -None done CT interpreted by me (1pt min.). @ -None done U/S interpreted by me (1pt. min.). @ -Pelvic ultrasound was obtained and was interpreted by myself showing a intrauterine gestation measuring 10 weeks and 3 days with 2 small subchorionic hemorrhages. What testing was considered but not performed or refused? (CT, X-rays, U/S, labs)? Why? @ -None What meds were considered but not given or refused? Why? @ -None Did you discuss the management of the patient with other professionals (enma castañeda i.e. , PA, GATE WATCHMAN, lab, RT, psych nurse, school social worker, optical engineering manager, teacher, chief marketing officer, lead case manager)? Give summary @ -No Was smoking cessation discussed for >3mins.? @ -No Was critical care preformed (if so, how long)? @ -No Were there social determinants of health that impacted care today? How? (Homelessness, low income, unemployed, alcoholism, drug addiction, transpor tation, low edu. Level, literacy, decrease access to med. care, skilled nursing, rehab)? @ -No Was there de-escalation of care discussed even if they declined (Discuss DNR or withdrawal of care, Hospice)? DNR status @ -No What co-morbidities impacted this encounter? (DM, HTN, Smoking, COPD, CAD, Cancer, CVA, ARF, Chemo, Hep., AIDS, mental health diagnosis, sleep apnea, morbid obesity)? @ -Multiple previous miscarriages, anemia Was patient admitted / discharged? Hospital course, mention meds given and route, prescriptions, significant lab abnormalities, going to OR and other pertinent info. @ -The patient was seen and evaluated emergency department. On physical exam, the patient was resting in bed without any acute distress. Vital signs admission were stable. Due to the nature the patient's complaints, laboratory workup was obtained and was within normal limits. The patient's anemia was at baseline. Her beta hCG quantitative level was 68,000 and consistent with her gestational age. The ultrasound did show a intrauterine gestation measuring 10 weeks. The patient had some minor vaginal bleeding secondary to the 2 small subchorionic hemorrhages and she did agree with deferring the pelvic exam at this time. The patient was seems still for discharge and told to follow-up with her [employer] for further workup and evaluation. The patient was agreeable to [facility] and all of her questions were answered. The patient was discharged home in stable condition with her significant other. Undiagnosed new problem with uncertain prognosis? @ -No Drug Therapy requiring intensive monitoring for toxicity (Heparin, Nitro, Insulin, Cardizem)? @ -No Were any procedures done? @ -No Diagnosis/symptom? @ -Vaginal bleeding in early secondary to small subchorionic hemorrhages Acute, or Chronic, or Acute on Chronic? @ -Acute Uncomplicated (without systemic symptoms) or Complicated (systemic symptoms)? @ -Uncomplicated Side effects of treatment? @ -No Exacerbation, Progression, or Severe Exacerbation? @ -No Poses a threat to life or bodily function? How? (Chest pain, USA, NM, pneumonia, PE, COPD, DKA, ARF, appy, cholecystitis, CVA, Diverticulitis, Homicidal, Suicidal, threat to staff... and all critical care pts) @ -No - Lab Data Result diagrams: 01/27/23 00:24 01/27/23 00:24 Lab Results 01/27/23 01/27/23 01/27/23 Range/Units 00:24 00:24 00:24 WBC 7.3 (3.8-10.6) k/uL RBC 4.12 (3.80-5.40) m/uL Hgb 8.8 L (11.4-16.0) gm/dL Hct 29.7 L (34.0-46.0) % MCV 72.1 L (80.0-100.0) fL MCH 21.3 L (25.0-35.0) pg MCHC 29.5 L (31.0-37.0) g/dL RDW 19.3 H (11.5-15.5) % Plt Count 198 (150-450) k/uL MPV 7.6 Neutrophils % 70 % Lymphocytes % 22 % Monocytes % 5 % Eosinophils % 2 % Basophils % 0 % Neutrophils # 5.1 (1.3-7.7) k/uL Lymphocytes # 1.6 (1.0-4.8) k/uL Monocytes # 0.4 (0-1.0) k/uL Eosinophils # 0.1 (0-0.7) k/uL Basophils # 0.0 (0-0.2) k/uL Hypochromasia Marked Poikilocytosis Slight Anisocytosis Slight Microcytosis Marked Sodium 135 L (137-145) mmol/L Potassium 3.7 (3.5-5.1) mmol/L Chloride 105 (98-107) mmol/L Carbon Dioxide 22 (22-30) mmol/L Anion Gap 8 mmol/L BUN 14 (7-17) mg/dL Creatinine 0.57 (0.52-1.04) mg/dL Est GFR (CKD-EPI)AfAm >90 (>60 ml/min/1.73 sqM) Est GFR (CKD-EPI)NonAf >90 (>60 ml/min/1.73 sqM) Glucose 96 (74-99) mg/dL Calcium 8.5 (8.4-10.2) mg/dL Magnesium 1.8 (1.6-2.3) mg/dL Total Bilirubin 0.2 (0.2-1.3) mg/dL AST 19 (14-36) U/L ALT 17 (4-34) U/L Alkaline Phosphatase 90 (38-126) U/L Total Protein 6.6 (6.3-8.2) g/dL Albumin 3.6 (3.5-5.0) g/dL Lipase 143 (23-300) U/L HCG, Quant 02024.6 mIU/mL Urine Color Yellow Urine Appearance Cloudy H (Clear) Urine pH 5.5 (5.0-8.0) Ur Specific [place] 1.036 H (1.001-1.035) Urine Protein Trace H (Negative) Urine Glucose (UA) Negative (Negative) Urine Ketones Trace H (Negative) Urine Blood Negative (Negative) Urine Nitrite Negative (Negative) Urine Bilirubin Negative (Negative) Urine Urobilinogen 2.0 (<2.0) mg/dL Ur Leukocyte Esterase Negative (Negative) Urine RBC <1 (0-5) /hpf Urine WBC 1 (0-5) /hpf Ur Squamous Epith Cells 14 H (0-4) /hpf Urine Bacteria Rare H (None) /hpf Urine Mucus Few H (None) /hpf Disposition Clinical Impression: Subchorionic hemorrhage in first trimester Disposition: HOME SELF-CARE Condition: Stable Instructions (If sedation given, give patient instructions): Non-Threatening First Trimester Vaginal Bleed (ED) Is patient prescribed a controlled substance at d/c from ED?: No Referrals: Garland Lopez MD [Primary Care Provider] - 1-2 days Time of Disposition: 01:40
[2023-01-27 00:46] LABS: Anisocytosis Slight; Basophils % (A) 0 %; Eosinophils # (A) 0.1 k/uL (0-0.7); Eosinophils % (A) 2 %; HCT 29.7 % (34.0-46.0); HGB 8.8 gm/dL (11.4-16.0); Hypochromasia Marked; Lymphocytes # (A) 1.6 k/uL (1.0-4.8); Lymphocytes % (A) 22 %; MCH 21.3 pg (25.0-35.0); MCHC 29.5 g/dL (31.0-37.0); MCV 72.1 fL (80.0-100.0); Mean Platelet Volume 7.6; Microcytosis Marked; Monocytes # (A) 0.4 k/uL (0-1.0); Monocytes % (A) 5 %; Neutrophils # (A) 5.1 k/uL (1.3-7.7); Neutrophils % (A) 70 %; Platelet Count 198 k/uL (150-450); Poikilocytosis Slight; RBC 4.12 m/uL (3.80-5.40); RDW 19.3 % (11.5-15.5); WBC 7.3 k/uL (3.8-10.6)
[2023-01-27 01:15] LABS: Appearance,Urine Cloudy (Clear); Bacteria,Urine Rare /hpf; Bilirubin,Urine Negative (Negative); Blood,Urine Negative (Negative); Color,Urine Yellow; Glucose,Urine (UA) Negative (Negative); Ketones,Urine Trace (Negative); Leukocyte Esterase,Urine Negative (Negative); Mucus,Urine Few /hpf; Nitrite,Urine Negative (Negative); PH, Urine 5.5 (5.0-8.0); Protein,Urine Trace (Negative); RBC,Urine <1 /hpf (0-5); Specific Gravity,Urine 1.036 (1.001-1.035); Squamous Epithelial Cell,Urine 14 /hpf (0-4); WBC,Urine 1 /hpf (0-5)
--- NOTE | 2023-01-27 01:17 | US ---
EXAM: US First Trimester , Transabdominal CLINICAL HISTORY: ITS.REASON US Reason: Vaginal bleeding in TECHNIQUE: Real-time transabdominal obstetrical ultrasound of the maternal pelvis and a first trimester with image documentation. COMPARISON: No relevant prior studies available. FINDINGS: Gestation: Intrauterine gestational sac. pole corresponding to a gestational age of 10 weeks 3 days. heart rate is estimated to be 163 bpm. Placenta/amniotic fluid: 2 small subchorionic hemorrhages measuring up to 0.7 cm in thickness. Uterus/cervix: Uterus measures 9.3 x 12.5 x 8.8 cm. No myometrial mass. Ovaries: Right ovary measures 1.8 x 3.9 x 2.0 cm. Left ovary measures 2.0 x 3.4 x 1.9 cm. No mass. Free fluid: No free fluid. IMPRESSION: 1. 10 week 3 day viable intrauterine . 2. 2 small subchorionic hemorrhages.
[2023-01-27 01:30] LABS: HCG,Quantitative Serum 68785.6 mIU/mL
[2023-01-27 01:42] VITALS: BP 129/74; PULSE 82; RESP 18
== END 2023-01-27 02:01 | disposition home or self-care (01) ==
LOC: EC 23:03
DX: O20.8 Other hemorrhage in early pregnancy (principal); O99.341 Other mental disorders complicating pregnancy, first trimester; F31.9 Bipolar disorder, unspecified; Z3A.10 10 weeks gestation of pregnancy; Z79.899 Other long term (current) drug therapy
CPT/HCPCS: 36415; 76801; 80053; 81001; 83690; 83735; 84702; 85025; 99284

== ENCOUNTER 2023-02-21 16:07 | Emergency (ER) | payer OTHER ==
--- NOTE | 2023-02-21 16:10 | ED ---
General Adult HPI <Estefany Jacob - Last Filed: 02/22/23 20:24> - General Source: RN notes reviewed, old records reviewed, Caregiver Mode of arrival: ambulatory Limitations: no limitations - History of Present Illness -: minutes(s) Location: chest, right, upper extremity Radiation: extremity Severity scale (1-10): 3 Quality: stabbing, aching Consistency: constant, other (Improving) Improves with: none Worsens with: none Associated Symptoms: denies other symptoms Treatments Prior to Arrival: none <Vasiliy Burgess - Last Filed: 02/23/23 16:26> - General Stated complaint: SNEHAL Time Seen by Provider: 02/21/23 16:09 - History of Present Illness Initial comments: 27-year-old female presents to the emergency department with a chief complaint of ALLERGIC reaction. She reports that she received an iron infusion earlier today. (Estefany Jacob) This is a 27-year-old female to the emergency department for evaluation patient presents today for evaluation regards to chest pain right arm pain after infusion. No prior history of iron infusions was her first iron infusion secondary to heavy periods. Patient is no evidence weakness. No shortness of breath symptoms are improving here in the ER (Vasiliy Burgess) - Related Data Home Medications Medication Instructions Recorded Confirmed busPIRone HCl [Buspar] 5 mg PO DAILY 01/15/22 03/21/22 Acetaminophen Tab [Tylenol] 650 mg PO Q4H PRN 03/21/22 03/21/22 Previous Rx's Medication Instructions Recorded Cephalexin [Keflex] 500 mg PO Q6HR 7 Days #28 cap 03/23/22 Nitrofurantoin Monohyd/M-Cryst 100 mg PO Q12HR 5 Days #10 cap 08/28/22 [Macrobid] Cephalexin [Keflex] 500 mg PO Q12HR 10 Days #20 cap 09/30/22 predniSONE 50 mg PO DAILY 5 Days #5 tablet 09/30/22 Cephalexin [Keflex] 500 mg PO Q12HR 5 Days #10 cap 01/05/23 Allergies Allergy/AdvReac Type Severity Reaction Status Date / Time nut - unspecified Allergy Anaphylaxis Verified 02/21/23 16:15 peanut Allergy Anaphylaxis Verified 02/21/23 16:15 Sulfa (Sulfonamide Allergy Rash/Hives Verified 02/21/23 16:15 Antibiotics) tree nut [Nut] Allergy Anaphylaxis Verified 02/21/23 16:15 Review of Systems ROS Other: All systems not noted in ROS Statement are negative. <Estefany Jacob - Last Filed: 02/22/23 20:24> ROS Other: All systems not noted in ROS Statement are negative. <AdityaVasiliy Juana - Last Filed: 02/23/23 16:26> ROS Statement: Those systems with pertinent positive or pertinent negative responses have been documented in the HPI. Past Medical History Past Medical History: Asthma, Diabetes Mellitus, Seizure Disorder, Thyroid Disorder Additional Past Medical History / Comment(s): cerebral palsy, gullian barre in 2010, multiple miscarriages, anemia. Currently 14 weeks 02/21/2023 History of Any Multi-Drug Resistant Organisms: None Reported Past Surgical History: No Surgical Hx Reported Additional Past Surgical History / Comment(s): D&C Past Anesthesia/Blood Transfusion Reactions: No Reported Reaction Additional Past Anesthesia/Blood Transfusion Reaction / Comment(s): FATHER- TAKES LONGER TO WAKE UP WITH ANESTHESIA". "takes longer to wake up" Past Psychological History: Anxiety, Bipolar Additional Psychological History / Comment(s): lives with children Smoking Status: Former smoker Past Alcohol Use History: None Reported Additional Past Alcohol Use History / Comment(s): started smoking at Age 15 and quit age 16 ONLY SMOKED 2 CIG PER DAY Past Drug Use History: None Reported - Past Family History Mother Family Medical History: Diabetes Mellitus, Hypertension, Seizure Disorder, Supraventricular Tachycardia (SVT) Additional Family Medical History / Comment(s): SVT Father History Unknown: Yes <Estefany Jacob - Last Filed: 02/22/23 20:24> General Exam <Estefany Jacob - Last Filed: 02/22/23 20:24> General appearance: alert, in no apparent distress, anxious Head exam: Present: atraumatic, normocephalic, normal inspection Eye exam: Present: normal appearance, PERRL, EOMI. Absent: scleral icterus, conjunctival injection, periorbital swelling ENT exam: Present: normal exam, mucous membranes moist Neck exam: Present: normal inspection. Absent: tenderness, meningismus, lymphadenopathy Respiratory exam: Present: normal lung sounds bilaterally. Absent: respiratory distress, wheezes, rales, rhonchi, stridor Cardiovascular Exam: Present: regular rate, normal rhythm, tachycardia, normal heart sounds. Absent: systolic murmur, diastolic murmur, rubs, gallop, clicks GI/Abdominal exam: Present: soft, normal bowel sounds. Absent: distended, tenderness, guarding, rebound, rigid Extremities exam: Present: normal inspection, full ROM, normal capillary refill. Absent: tenderness, pedal edema, joint swelling, calf tenderness Back exam: Present: normal inspection Neurological exam: Present: alert, oriented X3, CN II-XII intact Psychiatric exam: Present: normal affect, normal mood Skin exam: Present: warm, dry, intact, normal color. Absent: rash <Vasiliy Burgess - Last Filed: 02/23/23 16:26> - General Exam Comments Initial Comments: Visual Physical Exam Vital signs reviewed General: Well-appearing, nontoxic, no acute distress. Head: Normocephalic, atraumatic Eyes: PERRLA, EOMI ENT: Airway patent Chest: Nonlabored breathing Skin: No visual rash, normal skin tone Neuro: Alert and oriented 3 Musculoskeletal: No gross abnormalities (Estefany Jacob) Course <Vasiliy Burgess - Last Filed: 02/23/23 16:26> Vital Signs 02/21/23 02/21/23 02/21/23 16:12 20:22 20:25 Temperature 98.6 F 98.9 F Pulse Rate 104 H 98 Pulse Rate [ 90 Pulse Oximetery ] Respiratory 18 17 Rate Blood Pressure 113/71 128/75 O2 Sat by Pulse 96 94 L Oximetry 02/21/23 02/21/23 21:02 21:51 Temperature 98.7 F Pulse Rate 90 Pulse Rate [ Pulse Oximetery ] Respiratory 18 Rate Blood Pressure 114/70 120/80 O2 Sat by Pulse 100 Oximetry - Reevaluation(s) Reevaluation #1: 02/21/23 23:54 Medical records reviewed (Vasiliy Burgess) Reevaluation #2: 02/21/23 23:54 Patient informed results questions answered (Vasiliy Burgess) Reevaluation #3: 02/21/23 23:54 Was pt. sent in by a medical professional or institution? @ -no Did you speak to anyone other than the patient for history? @ -no Did you review nursing and triage notes? @ -agree Were old charts reviewed? @ -no Differential Diagnosis? @ -prior EKG interpreted by me (3pts min.)? @ -yes X-rays interpreted by me (1pt min.)? @ -yes CT interpreted by me (1pt min.)? @ -no U/S interpreted by me (1pt. min.)? @ -no What testing was considered but not performed? (CT, X-rays, U/S, labs)? Why? @ -no What meds were considered but not given? Why? @ -no Did you discuss the management of the patient with other professionals? @ -no Did you reconcile home meds? @ -no Was smoking cessation discussed for >3mins.? @ -no Was critical care preformed (if so, how long)? @ -no Were there social determinants of health that impacted care today? How? (Homelessness, low income, unemployed, alcoholism, drug addiction, transportation, low edu. Level, literacy, decrease access to med. care, [facility], rehab)? @ -no Was there de-escalation of care discussed even if they declined? (Discuss DNR or withdrawal of care, Hospice)? @ -no What co-morbidities impacted this encounter? (DM, HTN, Smoking, COPD, CAD, Cancer, CVA, Hep., AIDS, mental health diagnosis, sleep apnea, morbid obesity)? @ -none Was patient admitted / discharged? @ -dc Undiagnosed new problem with uncertain prognosis? @ -no Drug Therapy requiring intensive monitoring for toxicity (Heparin, Nitro, Insulin, Cardizem)? @ -no Were any procedures done? @ -no Diagnosis/symptom? @ -cp,medication reaction Acute, or Chronic, or Acute on Chronic? @ -no Uncomplicated (without systemic symptoms) or Complicated (systemic symptoms)? @ -uncomplicated Side effects of treatment? @ -no Exacerbation, Progression, or Severe Exacerbation] @ -no Poses a threat to life or bodily function? @ -no (Vasiliy Burgess) Reevaluation #4: 02/21/23 23:54 Patient informed results questions answered (Vasiliy Burgess) Reevaluation #5: 02/21/23 23:54 Differential Chest Pain: Stable Angina, Unstable Angina, STEMI, NSTEMI Aortic Dissection, Pneumothorax, Musculoskeletal, Esophageal Spasm GERD, Cholecystitis, Pancreatitis, Zoster, this is not meant to be an all-inclusive list. (Vasiliy Burgess) EKG Findings - EKG Comments: EKG Findings:: EKG is sinus 89 NJ 159 QRS 80 QTc 415 <Vasiliy Burgess - Last Filed: 02/23/23 16:26> Medical Decision Making - Lab Data Result diagrams: 02/21/23 17:09 02/21/23 17:09 <Estefany Jacob - Last Filed: 02/22/23 20:24> - Lab Data Result diagrams: 02/21/23 17:09 02/21/23 17:09 - Radiology Data Radiology results: report reviewed (Chest x-rays negative for acute disease), image reviewed <Vasiliy Burgess - Last Filed: 02/23/23 16:26> - Medical Decision Making 27 female to the emergency department for evaluation of chest pain right should er pain. Chest pain, Symptoms began after iron infusion for the first time resolved here in the ER testing is negative patient can be discharged home (Vasiliy Burgess) - Lab Data Lab Results 02/21/23 02/21/23 02/21/23 Range/Units 17:09 17:09 19:33 WBC 9.6 (3.8-10.6) k/uL RBC 4.59 (3.80-5.40) m/uL Hgb 9.7 L (11.4-16.0) gm/dL Hct 33.0 L (34.0-46.0) % MCV 71.9 L (80.0-100.0) fL MCH 21.1 L (25.0-35.0) pg MCHC 29.4 L (31.0-37.0) g/dL RDW 18.5 H (11.5-15.5) % Plt Count 190 (150-450) k/uL MPV 8.6 Neutrophils % 93 % Lymphocytes % 6 % Monocytes % 1 % Eosinophils % 0 % Basophils % 0 % Neutrophils # 8.9 H (1.3-7.7) k/uL Lymphocytes # 0.6 L (1.0-4.8) k/uL Monocytes # 0.1 (0-1.0) k/uL Eosinophils # 0.0 (0-0.7) k/uL Basophils # 0.0 (0-0.2) k/uL Hypochromasia Marked Anisocytosis Slight Microcytosis Marked Sodium 136 L (137-145) mmol/L Potassium 4.4 (3.5-5.1) mmol/L Chloride 104 (98-107) mmol/L Carbon Dioxide 22 (22-30) mmol/L Anion Gap 10 mmol/L BUN 11 (7-17) mg/dL Creatinine 0.72 (0.52-1.04) mg/dL Est GFR (CKD-EPI)AfAm >90 (>60 ml/min/1.73 sqM) Est GFR (CKD-EPI)NonAf >90 (>60 ml/min/1.73 sqM) Glucose 159 H (74-99) mg/dL Calcium 8.8 (8.4-10.2) mg/dL Total Bilirubin 0.2 (0.2-1.3) mg/dL AST 20 (14-36) U/L ALT 21 (4-34) U/L Alkaline Phosphatase 100 (38-126) U/L Troponin I <0.012 (0.000-0.034) ng/mL Total Protein 7.3 (6.3-8.2) g/dL Albumin 4.1 (3.5-5.0) g/dL Disposition Is patient prescribed a controlled substance at d/c from ED?: No <Estefany Jacob - Last Filed: 02/22/23 20:24> Time of Disposition: 21:15 <Vasiliy Burgess - Last Filed: 02/23/23 16:26> Clinical Impression: Chest pain, Atypical chest pain, Medication reaction Disposition: HOME SELF-CARE Condition: Good Instructions (If sedation given, give patient instructions): Chest Pain (ED) Referrals: Garland Lopez MD [Primary Care Provider] - 1-2 days
[2023-02-21 17:35] LABS: ALT 21 U/L (4-34); AST 20 U/L (14-36); African American GFR (CKD) >90 (>60 ml/min/1.73 sqM); Albumin 4.1 g/dL (3.5-5.0); Alkaline Phosphatase 100 U/L (38-126); Anion Gap 10 mmol/L; Blood Urea Nitrogen 11 mg/dL (7-17); Calcium 8.8 mg/dL (8.4-10.2); Carbon Dioxide 22 mmol/L (22-30); Chloride 104 mmol/L (98-107); Glucose 159 mg/dL (74-99); Non-African American GFR(CKD) >90 (>60 ml/min/1.73 sqM); Potassium 4.4 mmol/L (3.5-5.1); Sodium 136 mmol/L (137-145); Total Bilirubin 0.2 mg/dL (0.2-1.3); Total Protein 7.3 g/dL (6.3-8.2)
[2023-02-21 18:57] LABS: Anisocytosis Slight; Basophils % (A) 0 %; Eosinophils % (A) 0 %; HGB 9.7 gm/dL (11.4-16.0); Hypochromasia Marked; Lymphocytes # (A) 0.6 k/uL (1.0-4.8); Lymphocytes % (A) 6 %; MCH 21.1 pg (25.0-35.0); MCHC 29.4 g/dL (31.0-37.0); MCV 71.9 fL (80.0-100.0); Mean Platelet Volume 8.6; Microcytosis Marked; Monocytes # (A) 0.1 k/uL (0-1.0); Monocytes % (A) 1 %; Neutrophils # (A) 8.9 k/uL (1.3-7.7); Neutrophils % (A) 93 %; Platelet Count 190 k/uL (150-450); RBC 4.59 m/uL (3.80-5.40); RDW 18.5 % (11.5-15.5); WBC 9.6 k/uL (3.8-10.6)
[2023-02-21] MEDS ORDERED: KETOROLAC 15 MG/ML 1 ML VIAL IVP STA (20:40)
[2023-02-21 21:03] VITALS: PULSE 90; RESP 18; TEMP 98.7
--- NOTE | 2023-02-21 21:19 | XR ---
EXAMINATION: XR chest 1V portable DATE AND TIME: 02/21/2023 8:23 PM CLINICAL INDICATION: PHH; cp TECHNIQUE: AP upright portable COMPARISON: 10/21/2020 FINDINGS: The overlying soft tissues are prominent. The lungs appear to be clear. Question The pleural spaces are negative. The cardiac silhouette is not enlarged. The remainder of the mediastinal silhouette is unremarkable. The skeletal structures and soft tissues are negative for acute findings. IMPRESSION: NO ACUTE PROCESS.
[2023-02-21 21:54] VITALS: BP 120/80
== END 2023-02-21 21:54 | disposition home or self-care (01) ==
LOC: EC 16:07
DX: O26.892 Other specified pregnancy related conditions, second trimester (principal); R07.89 Other chest pain; O99.322 Drug use complicating pregnancy, second trimester; T45.4X5A Adverse effect of iron and its compounds, initial encounter; O24.112 Pre-existing type 2 diabetes mellitus, in pregnancy, second trimester; E11.9 Type 2 diabetes mellitus without complications; O99.341 Other mental disorders complicating pregnancy, first trimester; F41.9 Anxiety disorder, unspecified; F31.9 Bipolar disorder, unspecified; O99.512 Diseases of the respiratory system complicating pregnancy, second trimester; J45.909 Unspecified asthma, uncomplicated; Z88.2 Allergy status to sulfonamides; Z91.010 Allergy to peanuts; Z91.018 Allergy to other foods; Z87.891 Personal history of nicotine dependence; Z79.899 Other long term (current) drug therapy; Z3A.14 14 weeks gestation of pregnancy
CPT/HCPCS: 36415; 93005; 80053; 84484; 85025; 71045; 99285; 96374; J1885

== ENCOUNTER 2023-03-09 00:06 | Emergency (ER) | payer OTHER ==
[2023-03-09] MEDS ORDERED: ACETAMINOPHEN TAB 500 MG TAB PO STA (00:29)
[2023-03-09] MEDS ORDERED: SODIUM CHLORIDE 0.9% 1,000 ML IV ONE (00:29)
[2023-03-09 00:44] LABS: Anisocytosis Moderate; Basophils % (A) 0 %; Eosinophils # (A) 0.2 k/uL (0-0.7); Eosinophils % (A) 2 %; HCT 30.9 % (34.0-46.0); HGB 9.4 gm/dL (11.4-16.0); Hypochromasia Marked; Lymphocytes # (A) 1.8 k/uL (1.0-4.8); Lymphocytes % (A) 21 %; MCH 22.6 pg (25.0-35.0); MCHC 30.4 g/dL (31.0-37.0); MCV 74.3 fL (80.0-100.0); Mean Platelet Volume 8.4; Microcytosis Moderate; Monocytes # (A) 0.5 k/uL (0-1.0); Monocytes % (A) 5 %; Neutrophils # (A) 5.9 k/uL (1.3-7.7); Neutrophils % (A) 70 %; Platelet Count 221 k/uL (150-450); RBC 4.16 m/uL (3.80-5.40); RDW 21.7 % (11.5-15.5); WBC 8.5 k/uL (3.8-10.6)
[2023-03-09 00:59] LABS: INR 0.9 (<1.2); Prothrombin Time 9.6 sec (9.0-12.0)
[2023-03-09 01:05] LABS: ALT 21 U/L (4-34); AST 72 U/L (14-36); African American GFR (CKD) >90 (>60 ml/min/1.73 sqM); Albumin 3.8 g/dL (3.5-5.0); Alkaline Phosphatase 58 U/L (38-126); Anion Gap 8 mmol/L; Blood Urea Nitrogen 11 mg/dL (7-17); Calcium 8.6 mg/dL (8.4-10.2); Carbon Dioxide 23 mmol/L (22-30); Chloride 104 mmol/L (98-107); Glucose 91 mg/dL (74-99); Non-African American GFR(CKD) >90 (>60 ml/min/1.73 sqM); Sodium 135 mmol/L (137-145); Total Bilirubin 1.1 mg/dL (0.2-1.3)
--- NOTE | 2023-03-09 01:13 | ED ---
Abdominal Pain HPI - General Chief Complaint: Abdominal Pain Stated Complaint: Abd Pain, 16wks Time Seen by Provider: 03/09/23 00:20 Source: patient Mode of arrival: ambulatory Limitations: no limitations - History of Present Illness Initial Comments: Patient is a 27-year-old female currently 15 weeks presenting with chief complaint of pelvic cramping that has been ongoing since 9 PM. This is the patient's 24th she has had 4 deliveries and [address] Patient [address] Rod Yeung in [place] as she states she has a history of preeclampsia as well as pre-existing history of epilepsy, cerebral palsy, Guillain-Snyder. She denies any vaginal bleeding or discharge. No dysuria or hematuria. No back pain. No fevers or chills. - Related Data Home Medications Medication Instructions Recorded Confirmed busPIRone HCl [Buspar] 5 mg PO DAILY 01/15/22 03/21/22 Acetaminophen Tab [Tylenol] 650 mg PO Q4H PRN 03/21/22 03/21/22 Previous Rx's Medication Instructions Recorded Cephalexin [Keflex] 500 mg PO Q6HR 7 Days #28 cap 03/23/22 Nitrofurantoin Monohyd/M-Cryst 100 mg PO Q12HR 5 Days #10 cap 08/28/22 [Macrobid] Cephalexin [Keflex] 500 mg PO Q12HR 10 Days #20 cap 09/30/22 predniSONE 50 mg PO DAILY 5 Days #5 tablet 09/30/22 Cephalexin [Keflex] 500 mg PO Q12HR 5 Days #10 cap 01/05/23 Cephalexin [Keflex] 500 mg PO Q12HR 5 Days #10 cap 03/09/23 Allergies Allergy/AdvReac Type Severity Reaction Status Date / Time nut - unspecified Allergy Anaphylaxis Verified 03/09/23 00:18 peanut Allergy Anaphylaxis Verified 03/09/23 00:18 Sulfa (Sulfonamide Allergy Rash/Hives Verified 03/09/23 00:18 Antibiotics) tree nut [Nut] Allergy Anaphylaxis Verified 03/09/23 00:18 Review of Systems ROS Statement: Those systems with pertinent positive or pertinent negative responses have been documented in the HPI. ROS Other: All systems not noted in ROS Statement are negative. Past Medical History Past Medical History: Asthma, Diabetes Mellitus, Seizure Disorder, Thyroid Disorder Additional Past Medical History / Comment(s): cerebral palsy, gullian barre in 2010, multiple miscarriages, anemia. Currently 14 weeks 02/21/2023 History of Any Multi-Drug Resistant Organisms: None Reported Past Surgical History: No Surgical Hx Reported Additional Past Surgical History / Comment(s): D&C Past Anesthesia/Blood Transfusion Reactions: No Reported Reaction Additional Past Anesthesia/Blood Transfusion Reaction / Comment(s): FATHER- TAKES LONGER TO WAKE UP WITH ANESTHESIA". "takes longer to wake up" Past Psychological History: Anxiety, Bipolar Smoking Status: Former smoker Past Alcohol Use History: None Reported Past Drug Use History: None Reported - Past Family History Mother Family Medical History: Diabetes Mellitus, Hypertension, Seizure Disorder, Supraventricular Tachycardia (SVT) Additional Family Medical History / Comment(s): SVT Father History Unknown: Yes General Exam Limitations: no limitations General appearance: alert, in no apparent distress Head exam: Present: atraumatic, normocephalic, normal inspection Eye exam: Present: normal appearance, EOMI. Absent: scleral icterus, evangelista orbital swelling Neck exam: Present: normal inspection, full ROM Respiratory exam: Present: normal lung sounds bilaterally. Absent: respiratory distress, wheezes, rales, rhonchi, stridor Cardiovascular Exam: Present: regular rate, normal rhythm, normal heart sounds. Absent: systolic murmur, diastolic murmur, rubs, gallop, clicks Neurological exam: Present: alert, oriented X3, CN II-XII intact Psychiatric exam: Present: normal affect, normal mood Skin exam: Present: warm, dry, intact, normal color. Absent: rash Course Vital Signs 03/09/23 03/09/23 00:15 01:49 Temperature 97.8 F 98.6 F Pulse Rate 87 79 Respiratory 18 16 Rate Blood Pressure 112/74 112/76 O2 Sat by Pulse 98 97 Oximetry Medical Decision Making - Medical Decision Making Was pt. sent in by a medical professional or institution (, PA, ICE HANDLER, urgent c are, hospital, or prison...) When possible be specific @ -No Did you speak to anyone other than the patient for history (EMS, parent, family, police, friend...)? What history was obtained from this source @ -No Did you review nursing and triage notes (agree or disagree)? Why? @ -I reviewed and agree with nursing and triage notes Were old charts reviewed (outside hosp., previous admission, EMS record, old EKG, old radiological studies, urgent care reports/EKG's, prison records)? Report findings @ -No old charts were reviewed Differential Diagnosis (chest pain, altered mental status, abdominal pain women, abdominal pain men, vaginal bleeding, weakness, fever, dyspnea, syncope, headache, dizziness, GI bleed, back pain, seizure, CVA, palpatations, mental health, musculoskeletal)? @ -MDM Differential Abdominal Pain Women: Appendicitis, Cholecystitis, diverticulosis, ischemic bowel, pancreatitis, hepatitis, UTI, gastroenteritis, AAA, incarcerated hernia, bowel obstruction, constipation, inflammatory bowel, hepatitis, peptic ulcer disease, splenic infarction, perforated viscus, vulvitis, ovarian torsion, PID, kidney stone, placenta abruption... This is not meant to be an all-inclusive list EKG interpreted by me (3pts min.). @ -As above X-rays interpreted by me (1pt min.). @ -None done CT interpreted by me (1pt min.). @ -None done U/S interpreted by me (1pt. min.). @ -Ultrasound shows single living intrauterine . Gestational age 17 w eeks and 3 days. No acute abnormality What testing was considered but not performed or refused? (CT, X-rays, U/S, labs)? Why? @ -None What meds were considered but not given or refused? Why? @ -None Did you discuss the management of the patient with other professionals (professionals i.e. , PA, ICE HANDLER, lab, RT, psych nurse, social insurance analyst, director of adult epilepsy, teacher, chief business officer, case folder)? Give summary @ -No Was smoking cessation discussed for >3mins.? @ -No Was critical care preformed (if so, how long)? @ -No Were there social determinants of health that impacted care today? How? (Homeles sness, low income, unemployed, alcoholism, drug addiction, transportation, low edu. Level, literacy, decrease access to med. care, detention, rehab)? @ -No Was there de-escalation of care discussed even if they declined (Discuss DNR or withdrawal of care, Hospice)? DNR status @ -No What co-morbidities impacted this encounter? (DM, HTN, Smoking, COPD, CAD, Cancer, CVA, ARF, Chemo, Hep., AIDS, mental health diagnosis, sleep apnea, morbid obesity)? @ -None Was patient admitted / discharged? Hospital course, mention meds given and route, prescriptions, significant lab abnormalities, going to OR and other pertinent info. @ -Discharged. 27-year-old female currently 15 weeks presenting with chief complaint of pelvic cramping that started this evening. Lab work shows hemoglobin 9.4 which is consistent with the patient's baseline. There is some asymptomatic bacteriuria noted on UA, urine sent for culture and patient will be started on Keflex. Ultrasound shows no acute abnormality with single living intrauterine . Patient is given IV fluids and Tylenol. On reassessment patient is educated on today's findings. She is instructed to follow-up with her OB as soon as possible, she states she has upcoming appointment on Saturday. Follow-up with PCP and OB. Report back to ER with any new or worsening symptoms. Discussed return parameters and answered all questions. Patient conveyed verbal understanding and agreed to the plan. I discussed this case in detail with my attending Dr. Veras Undiagnosed new problem with uncertain prognosis? @ -No Drug Therapy requiring intensive monitoring for toxicity (Heparin, Nitro, Insulin, Cardizem)? @ -No Were any procedures done? @ -No Diagnosis/symptom? @ -Abdominal pain in Acute, or Chronic, or Acute on Chronic? @ -Acute Uncomplicated (without systemic symptoms) or Complicated (systemic symptoms)? @ -Uncomplicated Side effects of treatment? @ -No Exacerbation, Progression, or Severe Exacerbation? @ -No Poses a threat to life or bodily function? How? (Chest pain, USA, MA, pneumonia, PE, COPD, DKA, ARF, appy, cholecystitis, CVA, Diverticulitis, Homicidal, Suicidal, threat to staff... and all critical care pts) @ -low likelihood - Lab Data Result diagrams: 03/09/23 00:28 03/09/23 00:28 Lab Results 03/09/23 03/09/23 03/09/23 Range/Units 00:28 00:28 00:28 WBC 8.5 (3.8-10.6) k/uL RBC 4.16 (3.80-5.40) m/uL Hgb 9.4 L (11.4-16.0) gm/dL Hct 30.9 L (34.0-46.0) % MCV 74.3 L (80.0-100.0) fL MCH 22.6 L (25.0-35.0) pg MCHC 30.4 L (31.0-37.0) g/dL RDW 21.7 H (11.5-15.5) % Plt Count 221 (150-450) k/uL MPV 8.4 Neutrophils % 70 % Lymphocytes % 21 % Monocytes % 5 % Eosinophils % 2 % Basophils % 0 % Neutrophils # 5.9 (1.3-7.7) k/uL Lymphocytes # 1.8 (1.0-4.8) k/uL Monocytes # 0.5 (0-1.0) k/uL Eosinophils # 0.2 (0-0.7) k/uL Basophils # 0.0 (0-0.2) k/uL Hypochromasia Marked Anisocytosis Moderate Microcytosis Moderate PT (9.0-12.0) sec INR (<1.2) APTT (22.0-30.0) sec Sodium 135 L (137-145) mmol/L Potassium 5.0 (3.5-5.1) mmol/L Chloride 104 (98-107) mmol/L Carbon Dioxide 23 (22-30) mmol/L Anion Gap 8 mmol/L BUN 11 (7-17) mg/dL Creatinine 0.65 (0.52-1.04) mg/dL Est GFR (CKD-EPI)AfAm >90 (>60 ml/min/1.73 sqM) Est GFR (CKD-EPI)NonAf >90 (>60 ml/min/1.73 sqM) Glucose 91 (74-99) mg/dL Calcium 8.6 (8.4-10.2) mg/dL Total Bilirubin 1.1 (0.2-1.3) mg/dL AST 72 H (14-36) U/L ALT 21 (4-34) U/L Alkaline Phosphatase 58 (38-126) U/L Total Protein 7.0 (6.3-8.2) g/dL Albumin 3.8 (3.5-5.0) g/dL Urine Color Urine Appearance (Clear) Urine pH (5.0-8.0) Ur Specific [place] (1.001-1.035) Urine Protein (Negative) Urine Glucose (UA) (Negative) Urine Ketones (Negative) Urine Blood (Negative) Urine Nitrite (Negative) Urine Bilirubin (Negative) Urine Urobilinogen (<2.0) mg/dL Ur Leukocyte Esterase (Negative) Urine RBC (0-5) /hpf Urine WBC (0-5) /hpf Ur Squamous Epith Cells (0-4) /hpf Urine Bacteria (None) /hpf Urine Mucus (None) /hpf Urine HCG, Qual (Not Detectd) Blood Type O Positive Blood Type Recheck O Pos Bld Type Recheck Status No 03/09/23 03/09/23 03/09/23 Range/Units 00:36 01:15 01:15 WBC (3.8-10.6) k/uL RBC (3.80-5.40) m/uL Hgb (11.4-16.0) gm/dL Hct (34.0-46.0) % MCV (80.0-100.0) fL MCH (25.0-35.0) pg MCHC (31.0-37.0) g/dL RDW (11.5-15.5) % Plt Count (150-450) k/uL MPV Neutrophils % % Lymphocytes % % Monocytes % % Eosinophils % % Basophils % % Neutrophils # (1.3-7.7) k/uL Lymphocytes # (1.0-4.8) k/uL Monocytes # (0-1.0) k/uL Eosinophils # (0-0.7) k/uL Basophils # (0-0.2) k/uL Hypochromasia Anisocytosis Microcytosis PT 9.6 (9.0-12.0) sec INR 0.9 (<1.2) APTT 24.0 (22.0-30.0) sec Sodium (137-145) mmol/L Potassium (3.5-5.1) mmol/L Chloride (98-107) mmol/L Carbon Dioxide (22-30) mmol/L Anion Gap mmol/L BUN (7-17) mg/dL Creatinine (0.52-1.04) mg/dL Est GFR (CKD-EPI)AfAm (>60 ml/min/1.73 sqM) Est GFR (CKD-EPI)NonAf (>60 ml/min/1.73 sqM) Glucose (74-99) mg/dL Calcium (8.4-10.2) mg/dL Total Bilirubin (0.2-1.3) mg/dL AST (14-36) U/L ALT (4-34) U/L Alkaline Phosphatase (38-126) U/L Total Protein (6.3-8.2) g/dL Albumin (3.5-5.0) g/dL Urine Color Yellow Urine Appearance Cloudy H (Clear) Urine pH 6.0 (5.0-8.0) Ur Specific [place] 1.027 (1.001-1.035) Urine Protein Trace H (Negative) Urine Glucose (UA) Negative (Negative) Urine Ketones Negative (Negative) Urine Blood Negative (Negative) Urine Nitrite Negative (Negative) Urine Bilirubin Negative (Negative) Urine Urobilinogen <2.0 (<2.0) mg/dL Ur Leukocyte Esterase Moderate H (Negative) Urine RBC 1 (0-5) /hpf Urine WBC 7 H (0-5) /hpf Ur Squamous Epith Cells 3 (0-4) /hpf Urine Bacteria Rare H (None) /hpf Urine Mucus Few H (None) /hpf Urine HCG, Qual Detected (Not Detectd) Blood Type Blood Type Recheck Bld Type Recheck Status Disposition Clinical Impression: Abdominal pain during Disposition: HOME SELF-CARE Condition: Good Instructions (If sedation given, give patient instructions): Abdominal Pain in (ED) Additional Instructions: Follow up with your [facility]. Report back to ER with any new or worsening symptoms. Prescriptions: Cephalexin [Keflex] 500 mg PO Q12HR 5 Days #10 cap Is patient prescribed a controlled substance at d/c from ED?: No Referrals: Garland Lopez MD [Primary Care Provider] - 1-2 days Rod Yeung MD [REFERRING] - 1-2 days Time of Disposition: 01:42
[2023-03-09 01:30] LABS: Appearance,Urine Cloudy (Clear); Bacteria,Urine Rare /hpf; Bilirubin,Urine Negative (Negative); Blood,Urine Negative (Negative); Color,Urine Yellow; Glucose,Urine (UA) Negative (Negative); Ketones,Urine Negative (Negative); Leukocyte Esterase,Urine Moderate (Negative); Mucus,Urine Few /hpf; Nitrite,Urine Negative (Negative); Protein,Urine Trace (Negative); RBC,Urine 1 /hpf (0-5); Specific Gravity,Urine 1.027 (1.001-1.035); Squamous Epithelial Cell,Urine 3 /hpf (0-4); Urobilinogen,Urine <2.0 mg/dL (<2.0); WBC,Urine 7 /hpf (0-5)
--- NOTE | 2023-03-09 01:30 | US ---
EXAM: US Second or Third Trimester , Transabdominal CLINICAL HISTORY: ITS.REASON US Reason: pain TECHNIQUE: Real-time transabdominal obstetrical ultrasound of the maternal pelvis and a second or third trimester with image documentation. COMPARISON: No relevant prior studies available. FINDINGS: Fetus: Single living intrauterine . Estimated gestational age 17 weeks and 3 days. Heart rate: heart rate 163 bpm. Presentation: Placenta: Fundal. No abruption. Amniotic fluid: KENNY 10.7 cm. BIOMETRICS Gestational age: See above. ARCELIA: EFW: EFW 187 g (90 percentile). BPD: BPD 3.7 cm 17 weeks 3 days. HC: HC 13.8 cm 17 weeks 2 days. AC: AC 11.3 cm 17 weeks 1 day. FL: FL 2.5 cm 17 weeks 3 days. MATERNAL: Uterus: Unremarkable. No myometrial mass. Cervix: Cervix closed measuring 2.8 cm. Free fluid: No free fluid. IMPRESSION: Single living intrauterine . Estimated gestational age 17 weeks and 3 days. No acute abnormality.
[2023-03-09 01:51] VITALS: BP 112/76; PULSE 79; RESP 16; TEMP 98.6
== END 2023-03-09 01:51 | disposition home or self-care (01) ==
LOC: EC 00:06
DX: O26.892 Other specified pregnancy related conditions, second trimester (principal); R10.9 Unspecified abdominal pain; O99.512 Diseases of the respiratory system complicating pregnancy, second trimester; J45.909 Unspecified asthma, uncomplicated; O24.112 Pre-existing type 2 diabetes mellitus, in pregnancy, second trimester; O99.342 Other mental disorders complicating pregnancy, second trimester; F41.9 Anxiety disorder, unspecified; F31.9 Bipolar disorder, unspecified; Z87.891 Personal history of nicotine dependence; Z91.010 Allergy to peanuts; Z88.2 Allergy status to sulfonamides; Z88.8 Allergy status to other drugs, medicaments and biological substances; Z79.899 Other long term (current) drug therapy; Z3A.17 17 weeks gestation of pregnancy
CPT/HCPCS: 36415; 76805; 80053; 81001; 81025; 85025; 85610; 85730; 86900; 86901; 96360; 99284

== ENCOUNTER → 2023-04-08 | Outpatient (CLI) | payer OTHER ==
[2023-04-09 02:39] LABS: HCT 31.7 % (37.2-46.3); HGB 8.6 d/dL (12.0-15.0); MCH 21.7 pg (27.0-32.0); MCHC 27.1 d/dL (32.0-37.0); MCV 79.8 FL (80.0-97.0); Mean Platelet Volume 12.2 FL (9.5-12.2); NRBC Per 100 WBC 0 X 10*3/uL (0.00-0.01); Platelet Count 188 X 10*3/uL (140-440); RBC 3.97 X 10*6/uL (4.10-5.20); RDW 21.8 % (11.5-14.5); WBC 9.08 X 10*3/uL (4.50-10.00)
[2023-04-09 02:47] LABS: ALT 19 U/L (8-44); AST 14 U/L (13-35); Albumin 3.6 d/dL (3.8-4.9); Albumin/Globulin Ratio 1.33 Ratio (1.60-3.17); Alkaline Phosphatase 95 U/L (41-126); Blood Urea Nitrogen 10.5 mg/dL (9.0-27.0); Calcium 9.1 mg/dL (8.7-10.3); Carbon Dioxide 24.2 mmol/L (21.6-31.8); Chloride 104 mmol/L (96-109); Globulin 2.7 d/dL (1.6-3.3); Glucose 92 mg/dL (70-110); Potassium 4.4 mmol/L (3.5-5.5); Sodium 139 mmol/L (135-145); Total Bilirubin <0.2 mg/dL (0.3-1.2); Total Protein 6.3 d/dL (6.2-8.2)
[2023-04-09 05:41] LABS: Appearance,Urine Cloudy (Clear); Bilirubin,Urine Negative (Negative); Blood,Urine Negative (Negative); Color,Urine Yellow (Yellow); Ketones,Urine Trace (Negative); Nitrite,Urine Negative (Negative); PH, Urine 6.5; Specific Gravity,Urine 1.026 (1.001-1.030)
[2023-04-09 05:42] LABS: Bacteria,Urine 3+ (None Seen); Calcium Oxalate Crystals,Urine Present (None Seen)
== END | disposition home or self-care (01) ==
LOC: LABWHC1 15:47
PROVIDERS: ATTEND Obstetrics & Gynecology
DX: B89 Unspecified parasitic disease (principal)
CPT/HCPCS: 36415; 80053; 81001; 85027

== ENCOUNTER 2023-05-07 17:10 | Inpatient (IN) | payer OTHER ==
[2023-05-07] MEDS ORDERED: SODIUM CHLORIDE 0.9% 500 ML 500 ML IV STA (19:41)
--- NOTE | 2023-05-07 19:46 | ED ---
General Adult HPI - General Chief complaint: Urogenital Stated complaint: UTI Time Seen by Provider: 05/07/23 19:02 Source: patient, RN notes reviewed, old records reviewed Mode of arrival: ambulatory Limitations: no limitations - History of Present Illness Initial comments: Nontoxic appearing 27-year-old female presents to the emergency room with compl aints of urinary tract infection for the past 2 months despite 5 rounds of antibiotics. Patient does not remember the names of the antibiotics that she was being prescribed by her PCP. She states Dr. Lopez sent her to the emergency room for admission for UTI, pyelonephritis and . States that she is also 25 weeks and has lost 20 pounds since April 14. She is seeing high school football coach/GYN Dr. Thrasher in [place]. Her last ultrasound was performed April 25 with no complications. Patient is a G 25 P 4. 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 She did have some vaginal spotting yesterday but none today. Denies any abdominal pain. No nausea vomiting diarrhea or fevers. History of asthma, diabetes, seizures -: month(s) (2) Location: pelvis Radiation: back (low back) Severity scale (1-10): 6 Consistency: constant Improves with: none Associated Symptoms: other (chronic uti for 2 months, 5 rounds of antibiotics with PCP) - Related Data Home Medications Medication Instructions Recorded Confirmed busPIRone HCl [Buspar] 5 mg PO DAILY 01/15/22 05/07/23 Albuterol Sulfate [Albuterol 2 puff PO RT-BID PRN 05/07/23 05/07/23 Sulfate Hfa] Ascorbic Acid [Vitamin C] 500 mg PO DAILY 05/07/23 05/07/23 Aspirin EC [Ecotrin Low Dose] 81 mg PO DAILY 05/07/23 05/07/23 Ergocalciferol (Vitamin D2) 1,250 mcg PO ALEXANDRA 05/07/23 05/07/23 [Drisdol (50,000 Iu)] Folic Acid 1 mg PO DAILY 05/07/23 05/07/23 Ondansetron [Zofran] 4 mg PO QID 05/07/23 05/07/23 Pnv,Calcium 72/Iron/Folic Acid 1 tab PO DAILY 05/07/23 05/07/23 [Westab Plus Tablet] Allergies Allergy/AdvReac Type Severity Reaction Status Date / Time nut - unspecified Allergy Anaphylaxis Verified 05/07/23 21:49 peanut Allergy Anaphylaxis Verified 05/07/23 21:49 Sulfa (Sulfonamide Allergy Rash/Hives Verified 05/07/23 21:49 Antibiotics) tree nut [Nut] Allergy Anaphylaxis Verified 05/07/23 21:49 Review of Systems ROS Statement: Those systems with pertinent positive or pertinent negative responses have been documented in the HPI. ROS Other: All systems not noted in ROS Statement are negative. Past Medical History Past Medical History: Asthma, Diabetes Mellitus, Seizure Disorder, Thyroid Disorder Additional Past Medical History / Comment(s): cerebral palsy, gullian barre in 2010, multiple miscarriages, anemia. Currently 14 weeks 02/21/2023 History of Any Multi-Drug Resistant Organisms: None Reported Past Surgical History: No Surgical Hx Reported Additional Past Surgical History / Comment(s): D&C Past Anesthesia/Blood Transfusion Reactions: No Reported Reaction Additional Past Anesthesia/Blood Transfusion Reaction / Comment(s): FATHER- TAKES LONGER TO WAKE UP WITH ANESTHESIA". "takes longer to wake up" Past Psychological History: Anxiety, Bipolar Smoking Status: Former smoker Past Alcohol Use History: None Reported Past Drug Use History: None Reported - Past Family History Mother Family Medical History: Diabetes Mellitus, Hypertension, Seizure Disorder, Supraventricular Tachycardia (SVT) Additional Family Medical History / Comment(s): SVT Father History Unknown: Yes General Exam Limitations: no limitations General appearance: alert, in no apparent distress Head exam: Present: atraumatic Eye exam: Present: normal appearance. Absent: scleral icterus, conjunctival injection, periorbital swelling, periorbital tenderness ENT exam: Present: mucous membranes moist Neck exam: Present: full ROM. Absent: meningismus Respiratory exam: Absent: respiratory distress, accessory muscle use Cardiovascular Exam: Present: bradycardia GI/Abdominal exam: Present: soft Back exam: Present: tenderness (low back), paraspinal tenderness (lumbar). Absent: CVA tenderness (R), CVA tenderness (L), vertebral tenderness, rash noted Neurological exam: Present: alert, oriented X3 Psychiatric exam: Present: normal affect, normal mood Skin exam: Present: warm, dry, normal color. Absent: cyanosis, diaphoretic, petechiae, pallor Course Vital Signs 05/07/23 05/07/23 05/07/23 17:14 21:55 22:23 Temperature 98.8 F 97.8 F 98.1 F Pulse Rate 58 L 90 Pulse Rate [ 88 Right Pulse Oximetery] Respiratory 20 16 16 Rate Blood Pressure 126/69 115/77 Blood Pressure 116/68 [Left Arm] O2 Sat by Pulse 95 98 98 Oximetry Medical Decision Making - Medical Decision Making Was pt. sent in by a medical professional or institution (, BRIT, ASSISTANT BASEBALL COACH, urgent care, hospital, or retirement...) When possible be specific @ -Dr. Lopez Did you speak to anyone other than the patient for history (EMS, parent, family, police, friend...)? What history was obtained from this source @ -No Did you review nursing and triage notes (agree or disagree)? Why? @ -I reviewed and agree with nursing and triage notes Were old charts reviewed (outside hosp., previous admission, EMS record, old EKG, old radiological studies, urgent care reports/EKG's, retirement records)? Report findings @ -No old charts were reviewed Differential Diagnosis (chest pain, altered mental status, abdominal pain women, abdominal pain men, vaginal bleeding, weakness, fever, dyspnea, syncope, headache, dizziness, GI bleed, back pain, seizure, CVA, palpatations, mental health, musculoskeletal)? @ -UTI, pyelonephritis, sepsis, dehydration, this is not a occlusive list EKG interpreted by me (3pts min.). @ -n/a X-rays interpreted by me (1pt min.). @ -None done CT interpreted by me (1pt min.). @ -None done U/S interpreted by me (1pt. min.). @ -None done What testing was considered but not performed or refused? (CT, X-rays, U/S, labs)? Why? @ - Ultrasound was considered however patient denies any vaginal bleeding. No abdominal pain. Had an ultrasound on April 25 with [facility] What meds were considered but not given or refused? Why? @ -None Did you discuss the management of the patient with other professionals (professionals i.e. BRIT Ascencio, ASSISTANT BASEBALL COACH, lab, RT, psych nurse, social service agency director, bank teller machine mechanic, teacher, field crop technical officer, field nurse case manager)? Give summary @ -No Was smoking cessation discussed for >3mins.? @ -No Was critical care preformed (if so, how long)? @ -No Were there social determinants of health that impacted care today? How? (Homelessness, low income, unemployed, alcoholism, drug addiction, transportation, low edu. Level, literacy, decrease access to med. care, prison, rehab)? @ -No Was there de-escalation of care discussed even if they declined (Discuss DNR or withdrawal of care, Hospice)? DNR status @ -No What co-morbidities impacted this encounter? (DM, HTN, Smoking, COPD, CAD, Cancer, CVA, ARF, Chemo, Hep., AIDS, mental health diagnosis, sleep apnea, morbid obesity)? @ -, diabetes, asthma, seizures Was patient admitted / discharged? Hospital course, mention meds given and route, prescriptions, significant lab abnormalities, going to OR and other pertinent info. @ -Admitted Nontoxic appearing 27-year-old female presents to the emergency room with complaints of urinary tract infection for the past 2 months despite 5 rounds of antibiotics. Patient does not remember the names of the antibiotics that she was being prescribed by her PCP. She states Dr. Lopez sent her to the emergency room for admission for UTI, pyelonephritis and . States that she is also 25 weeks and has lost 20 pounds since April 14. She is seeing high school football coach/GYN Dr. Thrasher in [place]. Her last ultrasound was performed April 25 with no complications. Patient is a G 25 P 4. 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 Does have low back pain but denies any abdominal pain. No nausea vomiting diarrhea or fevers. She states that she just finished a 10 day course Keflex 2 days ago. She arrives with paperwork from her primary care doctor with diagnosis of UTI, pyelonephritis and requesting admission with infectious disease consult. According to medical records patient was prescribed Macrobid in August 2022 for UTI and azithromycin April 12 of this year for UTI. She does have an ALLERGY to sulfa. She has not seen a urologist for her frequent urinary tract infections. On physical exam patient has no CVA tenderness. Denies any vaginal bleeding or abdominal pain. Vital signs are stable. Afebrile. Today labs show no evidence of leukocytosis. Kidney functions tests within normal limits. Urinalysis shows large leukocyte esterase, 5 white blood cells and few bacteria. Urine culture was sent. Patient was given IV fluids and started on Macrobid. History of asthma, diabetes, seizures. Her last miscarriage was 2019. Patient was admitted per Dr Lopez for UTI, failed outpatient therapy during Related pains Dr. Veras Undiagnosed new problem with uncertain prognosis? @ -No Drug Therapy requiring intensive monitoring for toxicity (Heparin, Nitro, Insulin, Cardizem)? @ -No Were any procedures done? @ -No Diagnosis/symptom? @ -UTI in failed outpatient therapy Acute, or Chronic, or Acute on Chronic? @ -Acute Uncomplicated (without systemic symptoms) or Complicated (systemic symptoms)? @ -Complicated Side effects of treatment? @ -No Exacerbation, Progression, or Severe Exacerbation? @ -No Poses a threat to life or bodily function? How? (Chest pain, USA, NV, pneumonia, PE, COPD, DKA, ARF, appy, cholecystitis, CVA, Diverticulitis, Homicidal, Marycarmen cidal, threat to staff... and all critical care pts) @ -No - Lab Data Result diagrams: 05/07/23 20:03 05/07/23 20:03 Lab Results 05/07/23 05/07/23 05/07/23 Range/Units 20:03 20:03 20:03 WBC 8.0 (3.8-10.6) k/uL RBC 4.20 (3.80-5.40) m/uL Hgb 10.1 L (11.4-16.0) gm/dL Hct 33.0 L (34.0-46.0) % MCV 78.6 L (80.0-100.0) fL MCH 24.0 L (25.0-35.0) pg MCHC 30.5 L (31.0-37.0) g/dL RDW 18.8 H (11.5-15.5) % Plt Count 168 (150-450) k/uL MPV 9.8 Neutrophils % 72 % Lymphocytes % 20 % Monocytes % 6 % Eosinophils % 1 % Basophils % 0 % Neutrophils # 5.7 (1.3-7.7) k/uL Lymphocytes # 1.6 (1.0-4.8) k/uL Monocytes # 0.4 (0-1.0) k/uL Eosinophils # 0.1 (0-0.7) k/uL Basophils # 0.0 (0-0.2) k/uL Hypochromasia Marked Anisocytosis Slight Microcytosis Slight Sodium 135 L (137-145) mmol/L Potassium 3.6 (3.5-5.1) mmol/L Chloride 106 (98-107) mmol/L Carbon Dioxide 22 (22-30) mmol/L Anion Gap 7 mmol/L BUN 7 (7-17) mg/dL Creatinine 0.50 L (0.52-1.04) mg/dL Est GFR (CKD-EPI)AfAm >90 (>60 ml/min/1.73 sqM) Est GFR (CKD-EPI)NonAf >90 (>60 ml/min/1.73 sqM) Glucose 69 L (74-99) mg/dL Plasma Lactic Acid Milad (0.7-2.0) mmol/L Calcium 8.2 L (8.4-10.2) mg/dL Total Bilirubin 0.5 (0.2-1.3) mg/dL AST 23 (14-36) U/L ALT 24 (4-34) U/L Alkaline Phosphatase 100 (38-126) U/L Total Protein 6.2 L (6.3-8.2) g/dL Albumin 3.3 L (3.5-5.0) g/dL Amylase 74 (30-110) U/L Lipase 165 (23-300) U/L HCG, Quant 68628.6 mIU/mL Urine Color Light Red Urine Appearance Cloudy H (Clear) Urine pH 6.5 (5.0-8.0) Ur Specific [place] 1.028 (1.001-1.035) Urine Protein 1+ H (Negative) Urine Glucose (UA) Negative (Negative) Urine Ketones 2+ H (Negative) Urine Blood Negative (Negative) Urine Nitrite Negative (Negative) Urine Bilirubin Negative (Negative) Urine Urobilinogen <2.0 (<2.0) mg/dL Ur Leukocyte Esterase Large H (Negative) Urine RBC 2 (0-5) /hpf Urine WBC 25 H (0-5) /hpf Ur Squamous Epith Cells 2 (0-4) /hpf Urine Bacteria Few H (None) /hpf Urine Mucus Few H (None) /hpf //23 Range/Units 20:03 WBC (3.8-10.6) k/uL RBC (3.80-5.40) m/uL Hgb (11.4-16.0) gm/dL Hct (34.0-46.0) % MCV (80.0-100.0) fL MCH (25.0-35.0) pg MCHC (31.0-37.0) g/dL RDW (11.5-15.5) % Plt Count (150-450) k/uL MPV Neutrophils % % Lymphocytes % % Monocytes % % Eosinophils % % Basophils % % Neutrophils # (1.3-7.7) k/uL Lymphocytes # (1.0-4.8) k/uL Monocytes # (0-1.0) k/uL Eosinophils # (0-0.7) k/uL Basophils # (0-0.2) k/uL Hypochromasia Anisocytosis Microcytosis Sodium (137-145) mmol/L Potassium (3.5-5.1) mmol/L Chloride (98-107) mmol/L Carbon Dioxide (22-30) mmol/L Anion Gap mmol/L BUN (7-17) mg/dL Creatinine (0.52-1.04) mg/dL Est GFR (CKD-EPI)AfAm (>60 ml/min/1.73 sqM) Est GFR (CKD-EPI)NonAf (>60 ml/min/1.73 sqM) Glucose (74-99) mg/dL Plasma Lactic Acid Milad 0.9 (0.7-2.0) mmol/L Calcium (8.4-10.2) mg/dL Total Bilirubin (0.2-1.3) mg/dL AST (14-36) U/L ALT (4-34) U/L Alkaline Phosphatase (38-126) U/L Total Protein (6.3-8.2) g/dL Albumin (3.5-5.0) g/dL Amylase (30-110) U/L Lipase (23-300) U/L HCG, Quant mIU/mL Urine Color Urine Appearance (Clear) Urine pH (5.0-8.0) Ur Specific [place] (1.001-1.035) Urine Protein (Negative) Urine Glucose (UA) (Negative) Urine Ketones (Negative) Urine Blood (Negative) Urine Nitrite (Negative) Urine Bilirubin (Negative) Urine Urobilinogen (<2.0) mg/dL Ur Leukocyte Esterase (Negative) Urine RBC (0-5) /hpf Urine WBC (0-5) /hpf Ur Squamous Epith Cells (0-4) /hpf Urine Bacteria (None) /hpf Urine Mucus (None) /hpf Disposition Clinical Impression: UTI (urinary tract infection) in in second trimester, Failure of outpatient treatment Disposition: ADMITTED IP TO THIS HOSP Decision Date: 05/07/23 Decision Time: 21:16
[2023-05-07 20:15] LABS: Anisocytosis Slight; Basophils % (A) 0 %; Eosinophils # (A) 0.1 k/uL (0-0.7); Eosinophils % (A) 1 %; HGB 10.1 gm/dL (11.4-16.0); Hypochromasia Marked; Lymphocytes # (A) 1.6 k/uL (1.0-4.8); Lymphocytes % (A) 20 %; MCHC 30.5 g/dL (31.0-37.0); MCV 78.6 fL (80.0-100.0); Mean Platelet Volume 9.8; Microcytosis Slight; Monocytes # (A) 0.4 k/uL (0-1.0); Monocytes % (A) 6 %; Neutrophils # (A) 5.7 k/uL (1.3-7.7); Neutrophils % (A) 72 %; Platelet Count 168 k/uL (150-450); RDW 18.8 % (11.5-15.5)
[2023-05-07 20:18] LABS: Appearance,Urine Cloudy (Clear); Bilirubin,Urine Negative (Negative); Blood,Urine Negative (Negative); Color,Urine Light Red; Glucose,Urine (UA) Negative (Negative); Ketones,Urine 2+ (Negative); Leukocyte Esterase,Urine Large (Negative); Nitrite,Urine Negative (Negative); PH, Urine 6.5 (5.0-8.0); Protein,Urine 1+ (Negative); Specific Gravity,Urine 1.028 (1.001-1.035); Urobilinogen,Urine <2.0 mg/dL (<2.0)
[2023-05-07 20:22] LABS: WBC,Urine 25 /hpf (0-5)
[2023-05-07 20:23] LABS: RBC,Urine 2 /hpf (0-5); Squamous Epithelial Cell,Urine 2 /hpf (0-4)
[2023-05-07 20:31] LABS: ALT 24 U/L (4-34); AST 23 U/L (14-36); African American GFR (CKD) >90 (>60 ml/min/1.73 sqM); Albumin 3.3 g/dL (3.5-5.0); Alkaline Phosphatase 100 U/L (38-126); Amylase 74 U/L (30-110); Anion Gap 7 mmol/L; Blood Urea Nitrogen 7 mg/dL (7-17); Calcium 8.2 mg/dL (8.4-10.2); Carbon Dioxide 22 mmol/L (22-30); Chloride 106 mmol/L (98-107); Glucose 69 mg/dL (74-99); Lipase 165 U/L (23-300); Non-African American GFR(CKD) >90 (>60 ml/min/1.73 sqM); Potassium 3.6 mmol/L (3.5-5.1); Sodium 135 mmol/L (137-145); Total Bilirubin 0.5 mg/dL (0.2-1.3); Total Protein 6.2 g/dL (6.3-8.2)
[2023-05-07 20:37] LABS: Bacteria,Urine Few /hpf; Mucus,Urine Few /hpf
[2023-05-07 20:47] LABS: HCG,Quantitative Serum 11078.6 mIU/mL
[2023-05-07] MEDS ORDERED: NALOXONE 0.4 MG/ML 1 ML VIAL IV PRN (21:16)
[2023-05-07] MEDS ORDERED: ACETAMINOPHEN TAB 325 MG TAB PO PRN (21:16)
[2023-05-07] MEDS: NITROFURANTOIN MONOHYD/M-CRYST 100 MG CAP PO SCH (21:52)
--- NOTE | 2023-05-08 09:18 | P.HPOB ---
History of Present Illness H&P Date: 05/08/23 Chief Complaint: Persistent UTI in Ms. Nixon is a 27 year old 4 19 4 at 25 weeks and 0 days presenting admitting to Dr. Lopez for symptoms of urinary tract infection despite 5 courses of antibiotics, the patient believes it was Keflex 5 times. Her pregna ncy is high risk with a history of pre-eclampsia, gestational diabetes, recurrent loss, and deliveries. She gets obstetric care from Dr. Rod Yeung at [facility] with co-management from Dr. Price ABREU. The patient states that this month she has had extreme nausea and vomiting and has lost 26 pounds since April 14. She is feeling good movement. She has had occassional spotting and cramping, but denies that at this time. She complains of dysuria and suprapubic tenderness. She denies flank pain, fevers, or chills. Obstetric history: 4 deliveries: 1st at 35 weeks for a female weighing 8#7oz complicated by pre-eclampsia, 2nd at 35 weeks female weighing 7#8 ounces induced for pre-eclampsia, 3rd male born at 34 weeks 2/2 labor weighing 6#1 ounce, 4th at 35 weeks female weighing 8#5 ounces. All pregnancies were complicated by diet-controlled gestational diabetes. 19 spontaneous abortions. Past medical history: diet-controlled diabetes, epilespy on no medications, anxiety, depression, asthma Past surgical history: D&C x2 Medications: PNVs, buspar 5mg daily, ferrous sulfate, Vitamin B12, Vitamin D, folic acid, ASA 162 mg daily, albuterol inhaler prn [place]: sulfa drugs Past Medical History Past Medical History: Asthma, Diabetes Mellitus, Seizure Disorder, Thyroid Disorder Additional Past Medical History / Comment(s): cerebral palsy, gullian barre in 2010, multiple miscarriages, anemia. Currently 14 weeks 02/21/2023 History of Any Multi-Drug Resistant Organisms: None Reported Past Surgical History: No Surgical Hx Reported Additional Past Surgical History / Comment(s): D&C Past Anesthesia/Blood Transfusion Reactions: No Reported Reaction Additional Past Anesthesia/Blood Transfusion Reaction / Comment(s): FATHER- TAKES LONGER TO WAKE UP WITH ANESTHESIA". "takes longer to wake up" Past Psychological History: Anxiety, Bipolar Smoking Status: Former smoker Past Alcohol Use History: None Reported Past Drug Use History: None Reported - Past Family History Mother Family Medical History: Diabetes Mellitus, Hypertension, Seizure Disorder, Supraventricular Tachycardia (SVT) Additional Family Medical History / Comment(s): SVT Father History Unknown: Yes Medications and Allergies Home Medications Medication Instructions Recorded Confirmed Type busPIRone HCl [Buspar] 5 mg PO DAILY 01/15/22 05/07/23 History Albuterol Sulfate [Albuterol 2 puff PO RT-BID PRN 05/07/23 05/07/23 History Sulfate Hfa] Ascorbic Acid [Vitamin C] 500 mg PO DAILY 05/07/23 05/07/23 History Aspirin EC [Ecotrin Low Dose] 81 mg PO DAILY 05/07/23 05/07/23 History Ergocalciferol (Vitamin D2) 1,250 mcg PO ALEXANDRA 05/07/23 05/07/23 History [Drisdol (50,000 Iu)] Folic Acid 1 mg PO DAILY 05/07/23 05/07/23 History Ondansetron [Zofran] 4 mg PO QID 05/07/23 05/07/23 History Pnv,Calcium 72/Iron/Folic Acid 1 tab PO DAILY 05/07/23 05/07/23 History [Westab Plus Tablet] Allergies Allergy/AdvReac Type Severity Reaction Status Date / Time nut - unspecified Allergy Anaphylaxis Verified 05/07/23 21:49 peanut Allergy Anaphylaxis Verified 05/07/23 21:49 Sulfa (Sulfonamide Allergy Rash/Hives Verified 05/07/23 21:49 Antibiotics) tree nut [Nut] Allergy Anaphylaxis Verified 05/07/23 21:49 Exam Vital Signs Temp Pulse Pulse Resp BP BP Pulse Ox 05/07/23 22:23 98.1 F 88 16 116/68 98 05/07/23 21:55 97.8 F 90 16 115/77 98 05/07/23 17:14 98.8 F 58 L 20 126/69 95 Intake and Output 05/07/23 05/08/23 05/08/23 22:59 06:59 14:59 Other: # Voids 1 Weight 82.554 kg Focused physical exam is performed. This is a healthy-appearing in no apparent distress. Vital signs stable. Non-labored breathing. No CVA tenderness. + suprapubic tenderess. Extremities non-edematous, non-tender. Results Result Diagrams: 05/07/23 20:03 05/07/23 20:03 Abnormal Lab Results - Last 24 Hours (Table) 05/07/23 05/07/23 05/07/23 Range/Units 20:03 20:03 20:03 Hgb 10.1 L (11.4-16.0) gm/dL Hct 33.0 L (34.0-46.0) % MCV 78.6 L (80.0-100.0) fL MCH 24.0 L (25.0-35.0) pg MCHC 30.5 L (31.0-37.0) g/dL RDW 18.8 H (11.5-15.5) % Sodium 135 L (137-145) mmol/L Creatinine 0.50 L (0.52-1.04) mg/dL Glucose 69 L (74-99) mg/dL Calcium 8.2 L (8.4-10.2) mg/dL Total Protein 6.2 L (6.3-8.2) g/dL Albumin 3.3 L (3.5-5.0) g/dL Urine Appearance Cloudy H (Clear) Urine Protein 1+ H (Negative) Urine Ketones 2+ H (Negative) Ur Leukocyte Esterase Large H (Negative) Urine WBC 25 H (0-5) /hpf Urine Bacteria Few H (None) /hpf Urine Mucus Few H (None) /hpf Assessment and Plan Assessment: 27 year old G25 P 0 4 19 4 at 25 weeks and 0 days admitting to medicine for recurrent UTI Plan: 1. Recurrent UTI. Patient started by medicine team on Macrobid 100mg PO BID. ID consulted, appreciate recs. Urine cx pending, UA positive for infection. VSS, afebrile. 2. 25 week gestation. Daily EFM x20 minutes qShift. 3. Multiple comorbities. Home medications ordered. Dispo: Appreciate ID recs, urine cx pending. Anticipate need for daily antibiotic suppression for the remainder of . Time with Patient: Greater than 30 (30 minutes)
[2023-05-08] MEDS ORDERED: ALBUTEROL NEBULIZED 2.5 MG/3 ML INHALATION PRN (09:20)
[2023-05-08] MEDS ORDERED: ONDANSETRON ODT 4 MG TAB PO PRN (09:20)
[2023-05-08] MEDS: PRENATAL VIT-IRON-FOLIC ACID 1 EACH TABLET PO SCH (09:51)
[2023-05-08] MEDS: CYANOCOBALAMIN 500 MCG TAB PO SCH (09:52)
[2023-05-08] MEDS: ASPIRIN 81 MG PO SCH (09:52)
[2023-05-08] MEDS: ONDANSETRON 4 MG TAB PO SCH ×3 (09:52→22:35)
[2023-05-08] MEDS: busPIRone HCl 5 MG TAB PO SCH (09:52)
[2023-05-08] MEDS: NITROFURANTOIN MONOHYD/M-CRYST 100 MG CAP PO SCH (09:52)
[2023-05-08] MEDS ORDERED: PRENATAL VIT-IRON-FOLIC ACID 1 EACH TABLET PO SCH (10:00)
[2023-05-08 10:53] LABS: Amphetamine Screen,Urine Not Detected (NotDetected); Barbiturate Screen,Urine Not Detected (NotDetected); Benzodiazepines Screen,Urine Not Detected (NotDetected); Cocaine Screen,Urine Not Detected (NotDetected); Methadone Screen, Urine Not Detected (NotDetected); Opiate Screen,Urine Not Detected (NotDetected); Oxycodone Screen, Urine Not Detected (NotDetected); Phencyclidine Screen,Urine Not Detected (NotDetected); Tricyclic Antidepressant,Urine Not Detected (NotDetected); Urn Cannabinoid Scrn Not Detected (NotDetected)
[2023-05-08 12:57] LABS: Glucose,Whole Blood 119 mg/dL (70-110)
[2023-05-08 18:51] LABS: Glucose,Whole Blood 120 mg/dL (70-110)
--- NOTE | 2023-05-08 20:18 | CONS ---
CONSULTATION HISTORY OF PRESENT ILLNESS: A 27-year-old white female came to the emergency room for urinary tract infection for the past 2 months despite 5 rounds of antibiotics. She has been living for the last month. She has been kicked out of the house by her boyfriend. She is . Middle of the way through her , she has had no food to eat. She her car. She has no money. She has no food stamps. She is admitted for UTI, pyelonephritis in , failing 2 rounds of antibiotics over the last 2 weeks. She sees an LOSS PREVENTION OPERATIONS MANAGER and Dr. Thrasher in [place] for high risk. As mentioned, she has had 19 miscarriages. She is G25, para 4 asthma, diabetes, seizures. HOME MEDICATIONS: 1. BuSpar 5 mg daily. 2. Aspirin 81 daily. 3. Folic acid 1 mg daily. 4. Albuterol inhalers. REVIEW OF SYSTEMS: A 14-point review of systems otherwise negative. PAST MEDICAL HISTORY: Asthma, diabetes mellitus, seizure disorder, hypothyroidism, cerebral palsy, Guillain- Doyline, multiple miscarriages, anemia, 14 weeks . FAMILY HISTORY: Mother, diabetes mellitus, hypertension, seizures, SVT. Father, unclear. PHYSICAL EXAMINATION: VITAL SIGNS: Blood pressure 120s/60s, O2 saturation is 95%, pulse , respiratory rate 18 to 20, temperature 98.8. GENERAL: She is a white female. She is crying, emotional. She is obese. HEART: S1, S2. LUNGS: Some mild accessory use of muscles. Mild wheeze x4. GI: Distended, obesity. BACK: Some CVA tenderness, right and left. NEUROLOGIC: Alert and oriented x3. PSYCHIATRIC: Anxious and nervous. SKIN: Warm, dry. ASSESSMENT AND PLAN: Urinary tract infection with pyelonephritis, dehydration, sepsis, high-risk . She was told by LOSS PREVENTION OPERATIONS MANAGER in [place] to increase her BuSpar from 5 mg a day currently at this time. She has lost 20 pounds since April 14. She has been living in a car. She has not had a good meal in the long period of time over about a month. Allergies to sulfa Infectious Disease she has no safe place to go. She is malnourished. She has no money for food etc. Prognosis guarded. MMASH / MERLINEN: [id number] /
--- NOTE | 2023-05-08 22:13 | P.CONS ---
History of Present Illness - Reason for Consult Consult date: 05/08/23 - History of Present Illness Patient is a 27-year-old female with a past medical history significant for recurrent urinary tract infection who is currently 25 weeks and the patient mention since start of this the patient did have multiple episodes of UTI and has been treated with multiple courses of antibiotics patient describing her symptoms of UTI with burning of urine some suprapubic discomfort however the patient denies having any high-grade fever or any chills with this episode starting patient has been advised to go to the hospital for IV antibiotic therapy patient on presentation to the hospital was afebrile and no fever has been or subsequently she did have mild tachycardia white count was normal kidney function was normal urine was positive with large leukocyte esterase 25 WBC urine drug screen was negative patient was started on Macrobid infectious disease was consulted for further management of antibiotic therapy urine cultures currently pending Past Medical History Past Medical History: Asthma, Diabetes Mellitus, Seizure Disorder, Thyroid Disorder Additional Past Medical History / Comment(s): cerebral palsy, gullian barre in 2010, multiple miscarriages, anemia. Currently 14 weeks 02/21/2023 History of Any Multi-Drug Resistant Organisms: None Reported Past Surgical History: No Surgical Hx Reported Additional Past Surgical History / Comment(s): D&C Past Anesthesia/Blood Transfusion Reactions: No Reported Reaction Additional Past Anesthesia/Blood Transfusion Reaction / Comm: FATHER- TAKES LONGER TO WAKE UP WITH ANESTHESIA". "takes longer to wake up" Past Psychological History: Anxiety, Bipolar Smoking Status: Former smoker Past Alcohol Use History: None Reported Past Drug Use History: None Reported - Past Family History Mother Family Medical History: Diabetes Mellitus, Hypertension, Seizure Disorder, Supraventricular Tachycardia (SVT) Additional Family Medical History / Comment(s): SVT Father History Unknown: Yes Medications and Allergies Home Medications Medication Instructions Recorded Confirmed Type busPIRone HCl [Buspar] 5 mg PO DAILY 01/15/22 05/07/23 History Albuterol Sulfate [Albuterol 2 puff PO RT-BID PRN 05/07/23 05/07/23 History Sulfate Hfa] Ascorbic Acid [Vitamin C] 500 mg PO DAILY 05/07/23 05/07/23 History Aspirin EC [Ecotrin Low Dose] 81 mg PO DAILY 05/07/23 05/07/23 History Ergocalciferol (Vitamin D2) 1,250 mcg PO ALEXANDRA 05/07/23 05/07/23 History [Drisdol (50,000 Iu)] Folic Acid 1 mg PO DAILY 05/07/23 05/07/23 History Ondansetron [Zofran] 4 mg PO QID 05/07/23 05/07/23 History Pnv,Calcium 72/Iron/Folic Acid 1 tab PO DAILY 05/07/23 05/07/23 History [Westab Plus Tablet] Allergies Allergy/AdvReac Type Severity Reaction Status Date / Time nut - unspecified Allergy Anaphylaxis Verified 05/07/23 21:49 peanut Allergy Anaphylaxis Verified 05/07/23 21:49 Sulfa (Sulfonamide Allergy Rash/Hives Verified 05/07/23 21:49 Antibiotics) tree nut [Nut] Allergy Anaphylaxis Verified 05/07/23 21:49 Physical Exam Vitals: Vital Signs Temp Pulse Pulse Resp BP BP Pulse Ox 05/08/23 08:56 96.9 F L 101 H 16 116/66 98 05/07/23 22:23 98.1 F 88 16 116/68 98 05/07/23 21:55 97.8 F 90 16 115/77 98 05/07/23 17:14 98.8 F 58 L 20 126/69 95 Intake and Output 05/07/23 05/08/23 05/08/23 22:59 06:59 14:59 Other: # Voids 1 Weight 82.554 kg Results CBC & Chem 7: 05/07/23 20:03 05/07/23 20:03 Labs: Abnormal Lab Results - Last 24 Hours (Table) 05/07/23 05/07/23 05/07/23 Range/Units 20:03 20:03 20:03 Hgb 10.1 L (11.4-16.0) gm/dL Hct 33.0 L (34.0-46.0) % MCV 78.6 L (80.0-100.0) fL MCH 24.0 L (25.0-35.0) pg MCHC 30.5 L (31.0-37.0) g/dL RDW 18.8 H (11.5-15.5) % Sodium 135 L (137-145) mmol/L Creatinine 0.50 L (0.52-1.04) mg/dL Glucose 69 L (74-99) mg/dL Calcium 8.2 L (8.4-10.2) mg/dL Total Protein 6.2 L (6.3-8.2) g/dL Albumin 3.3 L (3.5-5.0) g/dL Urine Appearance Cloudy H (Clear) Urine Protein 1+ H (Negative) Urine Ketones 2+ H (Negative) Ur Leukocyte Esterase Large H (Negative) Urine WBC 25 H (0-5) /hpf Urine Bacteria Few H (None) /hpf Urine Mucus Few H (None) /hpf Assessment and Plan Plan: 1patient presenting to the hospital with urinary burning frequency suprapubic discomfort nausea but no vomiting no high-grade fever concern for symptomatic UTI in this patient who is in her first trimester of on the basis of the ultrasound and history of recurrent UTIs 2-discontinue Macrobid 3-start the patient on Rocephin 1 g daily 4-check ultrasound of the kidney bladder to make it evidence of any structural abnormality We will follow on clinical condition and cultures to further adjust medication if needed Thank you for this consultation we will follow the patient along with you Dictation was produced using [employer] dictation software. please excuse any grammatical, word or spelling errors. Time with Patient: Greater than 30
[2023-05-09] MEDS: ONDANSETRON 4 MG TAB PO SCH ×5 (07:35→22:43)
[2023-05-09] MEDS: PRENATAL VIT-IRON-FOLIC ACID 1 EACH TABLET PO SCH (08:12)
[2023-05-09] MEDS: busPIRone HCl 5 MG TAB PO SCH (08:12)
[2023-05-09] MEDS: CYANOCOBALAMIN 500 MCG TAB PO SCH (08:12)
[2023-05-09] MEDS: ASPIRIN 81 MG PO SCH (08:12)
[2023-05-09 10:08] LABS: Glucose,Whole Blood 127 mg/dL (70-110)
--- NOTE | 2023-05-09 10:43 | US ---
EXAMINATION TYPE: US kidneys/renal and bladder DATE OF EXAM: 05/09/2023 COMPARISON: US abd complete 06/12/2019 CLINICAL INDICATION: Female, 27 years old with history of uti and bacteremia; UTI since September. Pt. is 25 weeks EXAM MEASUREMENTS: Right Kidney: 9.7x3.5x3.9 cm Left Kidney: 11.5x6.2x4.9 cm No hydronephrosis on either side. Right Kidney: wnl Left Kidney: 7 mm echogenic cortical focus lateral lower pole. Bladder: wnl Bilateral Jets seen: Yes Rrt notes: Exam technically difficult due to limited scanning windows constrained by bowel, r ibs and body habitus. Small shadowing stones may be difficult to appreciate. IMPRESSION: 1. No hydronephrosis. 2. A small 7 mm echogenic area at the lateral lower pole left kidney. This could represent some inter posed fat, prominent vascular reflector, nonshadowing calculus, or a small AML. Recommend 6 month fol low-up ultrasound to reassess.
[2023-05-09 13:46] LABS: Glucose,Whole Blood 119 mg/dL (70-110)
--- NOTE | 2023-05-09 14:52 | P.PN ---
Subjective Progress Note Date: 05/09/23 Principal diagnosis: Recurrent urinary tract infection Patient is a 27-year-old female with a past medical history significant for recurrent urinary tract infection who is currently 25 weeks and the patient mention since start of this the patient did have multiple episodes of UTI and has been treated with multiple courses of antibiotics, admitted to hospital with another episode of UTI. On today's evaluation that is 05/09/2023 patient is afebrile patient is breathing comfortably on room air patient complaining of burning of urine however no significant suprapubic or flank pain did have some nausea but no vomiting and no diarrhea Objective - Vital Signs Vital signs: Vital Signs Temp 96.9 F L 05/09/23 08:00 Pulse 71 05/09/23 08:00 Resp 16 05/09/23 08:00 BP 102/56 05/09/23 08:00 Pulse Ox 95 05/09/23 08:00 FiO2 Intake & Output 05/08/23 05/09/23 05/09/23 18:59 06:59 18:59 Other: # Voids 1 - Exam GENERAL DESCRIPTION: A middle-aged female lying in bed in no distress RESPIRATORY SYSTEM: Unlabored breathing , decreased breath sounds at bases HEART: S1 S2 regular rate and rhythm , ABDOMEN: Soft , no tenderness EXTREMITIES: No edema feet - Labs CBC & Chem 7: 05/07/23 20:03 05/07/23 20:03 Labs: Abnormal Lab Results - Last 24 Hours (Table) 05/08/23 05/08/23 05/09/23 Range/Units 12:56 18:48 10:06 POC Glucose (mg/dL) 119 H 120 H 127 H (70-110) mg/dL Microbiology - Last 24 Hours (Table) 05/07/23 20:03 Urine Culture - Final Urine,Voided Assessment and Plan (1) Failure of outpatient treatment Current Visit: Yes Status: Acute Code(s): Z78.9 - OTHER SPECIFIED HEALTH STATUS SNOMED Code(s): 881352106 (2) UTI (urinary tract infection) in in second trimester Current Visit: Yes Status: Acute Code(s): O23.42 - UNSP INFCT OF URINARY TRACT IN , SECOND TRIMESTER SNOMED Code(s): 399293100 Plan: 1patient presenting to the hospital with urinary burning frequency suprapubic discomfort nausea but no vomiting no high-grade fever concern for symptomatic UTI in this patient who is in her first trimester of on the basis of the ultrasound and history of recurrent UTIs 2Patient did have ultrasound of the kidney bladder with no evidence of hydronephrosis or stone 3-cultures are so far negative patient still complaining of urinary symptom will repeat a UA and continue with Rocephin Dictation was produced using [employer] dictation software. please excuse any grammatical, word or spelling errors. Time with Patient: Less than 30
[2023-05-09 17:50] LABS: Mucus,Urine Occasional /hpf; RBC,Urine <1 /hpf (0-5); Squamous Epithelial Cell,Urine 9 /hpf (0-4); WBC,Urine 3 /hpf (0-5)
[2023-05-09 18:14] LABS: Glucose,Whole Blood 120 mg/dL (70-110)
[2023-05-09 18:26] LABS: Appearance,Urine Clear (Clear); Bilirubin,Urine Negative (Negative); Blood,Urine Negative (Negative); Color,Urine Yellow; Glucose,Urine (UA) Negative (Negative); Ketones,Urine Negative (Negative); Nitrite,Urine Negative (Negative); PH, Urine 7.5 (5.0-8.0); Protein,Urine Negative (Negative); Urobilinogen,Urine <2.0 mg/dL (<2.0)
[2023-05-09 18:27] LABS: Leukocyte Esterase,Urine Moderate (Negative)
[2023-05-10 00:41] VITALS: PULSE 70
[2023-05-10] MEDS: busPIRone HCl 5 MG TAB PO SCH (08:25)
[2023-05-10] MEDS: PRENATAL VIT-IRON-FOLIC ACID 1 EACH TABLET PO SCH (08:25)
[2023-05-10] MEDS: ASPIRIN 81 MG PO SCH (08:25)
[2023-05-10] MEDS: ONDANSETRON 4 MG TAB PO SCH (08:25)
[2023-05-10] MEDS: CYANOCOBALAMIN 500 MCG TAB PO SCH (08:26)
[2023-05-10 09:15] VITALS: BP 106/55; RESP 14; TEMP 96.6
[2023-05-10 09:20] LABS: Glucose,Whole Blood 127 mg/dL (70-110)
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
== END 2023-05-10 15:01 | disposition home or self-care (01) | DRG 566 ==
LOC: EC 17:10 → 4FBP 21:20
PROVIDERS: ADMIT Family Medicine; ATTEND Family Medicine
DX: O23.42 Unspecified infection of urinary tract in pregnancy, second trimester (principal); N39.0 Urinary tract infection, site not specified; Z87.440 Personal history of urinary (tract) infections; O99.282 Endocrine, nutritional and metabolic diseases complicating pregnancy, second trimester; O99.342 Other mental disorders complicating pregnancy, second trimester; O99.352 Diseases of the nervous system complicating pregnancy, second trimester; E03.9 Hypothyroidism, unspecified; G80.9 Cerebral palsy, unspecified; E11.9 Type 2 diabetes mellitus without complications; O99.012 Anemia complicating pregnancy, second trimester; D64.9 Anemia, unspecified; O26.22 Pregnancy care for patient with recurrent pregnancy loss, second trimester; O26.612 Liver and biliary tract disorders in pregnancy, second trimester; O26.832 Pregnancy related renal disease, second trimester; O99.612 Diseases of the digestive system complicating pregnancy, second trimester; G61.0 Guillain-Barre syndrome; G40.909 Epilepsy, unspecified, not intractable, without status epilepticus; J45.909 Unspecified asthma, uncomplicated; O99.412 Diseases of the circulatory system complicating pregnancy, second trimester; O99.512 Diseases of the respiratory system complicating pregnancy, second trimester; Z3A.25 25 weeks gestation of pregnancy; E86.0 Dehydration; F31.9 Bipolar disorder, unspecified; F41.9 Anxiety disorder, unspecified; Z79.82 Long term (current) use of aspirin; Z79.899 Other long term (current) drug therapy; Z87.891 Personal history of nicotine dependence; Z88.2 Allergy status to sulfonamides; Z91.018 Allergy to other foods; Z91.010 Allergy to peanuts
CPT/HCPCS: 36415; 76770; 80053; 80306; 81001; 82150; 83605; 83690; 84702; 85025; 87086; 96360; 96361; 99284

== ENCOUNTER 2023-05-11 17:26 | Emergency (ER) | payer OTHER ==
[2023-05-11 17:29] VITALS: RESP 18
[2023-05-11] MEDS ORDERED: SODIUM CHLORIDE 0.9% 1,000 ML IV STA (18:13)
--- NOTE | 2023-05-11 18:34 | ED ---
Dizziness HPI - General Chief Complaint: Syncope Stated Complaint: Near Syncope Time Seen by Provider: 05/11/23 17:52 Source: patient, EMS, RN notes reviewed Mode of arrival: EMS Limitations: no limitations - History of Present Illness Initial Comments: This is a 27-year-old female who presents to the emergency department for dizziness and near syncope. 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 She tried to sit down, but did not feel any better, prompting her to come to the emergency department. She is approximately 25 weeks and A19 due to multiple miscarriages. She is receiving obstetrics care, but it is not local to this area. Denies any vaginal bleeding or abdominal pain. She is still having regular movement. Believes that this is related to her blood sugar. Denies any fevers, chills, sore throat, cough, dyspnea, chest pain, palpita tions, abdominal pain, nausea, vomiting, diarrhea, back pain, or headaches. MD Complaint: dizziness, lightheadedness, near syncope - Related Data Home Medications Medication Instructions Recorded Confirmed busPIRone HCl [Buspar] 5 mg PO DAILY 01/15/22 05/07/23 Albuterol Sulfate [Albuterol 2 puff PO RT-BID PRN 05/07/23 05/07/23 Sulfate Hfa] Ascorbic Acid [Vitamin C] 500 mg PO DAILY 05/07/23 05/07/23 Aspirin EC [Ecotrin Low Dose] 81 mg PO DAILY 05/07/23 05/07/23 Ergocalciferol (Vitamin D2) 1,250 mcg PO ALEXANDRA 05/07/23 05/07/23 [Drisdol (50,000 Iu)] Folic Acid 1 mg PO DAILY 05/07/23 05/07/23 Ondansetron [Zofran] 4 mg PO QID 05/07/23 05/07/23 Pnv,Calcium 72/Iron/Folic Acid 1 tab PO DAILY 05/07/23 05/07/23 [[place] Plus Tablet] Previous Rx's Medication Instructions Recorded Cefdinir [Omnicef] 300 mg PO Q12HR #14 capsule 05/10/23 Cyanocobalamin [Vitamin B-12] 500 mcg PO DAILY #30 tab 05/10/23 Allergies Allergy/AdvReac Type Severity Reaction Status Date / Time nut - unspecified Allergy Anaphylaxis Verified 05/07/23 21:49 peanut Allergy Anaphylaxis Verified 05/07/23 21:49 Sulfa (Sulfonamide Allergy Rash/Hives Verified 05/07/23 21:49 Antibiotics) tree nut [Nut] Allergy Anaphylaxis Verified 05/07/23 21:49 Review of Systems ROS Statement: Those systems with pertinent positive or pertinent negative responses have been documented in the HPI. ROS Other: All systems not noted in ROS Statement are negative. Past Medical History Past Medical History: Asthma, Diabetes Mellitus, Seizure Disorder, Thyroid Disorder Additional Past Medical History / Comment(s): cerebral palsy, gullian barre in 2010, multiple miscarriages, anemia. Currently 14 weeks 02/21/2023 History of Any Multi-Drug Resistant Organisms: None Reported Past Surgical History: No Surgical Hx Reported Additional Past Surgical History / Comment(s): D&C Past Anesthesia/Blood Transfusion Reactions: No Reported Reaction Additional Past Anesthesia/Blood Transfusion Reaction / Comment(s): FATHER- TAKES LONGER TO WAKE UP WITH ANESTHESIA". "takes longer to wake up" Past Psychological History: Anxiety, Bipolar Smoking Status: Former smoker Past Alcohol Use History: None Reported Past Drug Use History: None Reported - Past Family History Mother Family Medical History: Diabetes Mellitus, Hypertension, Seizure Disorder, S upraventricular Tachycardia (SVT) Additional Family Medical History / Comment(s): SVT Father History Unknown: Yes General Exam Limitations: no limitations General appearance: alert, in no apparent distress Head exam: Present: atraumatic, normocephalic, normal inspection Eye exam: Present: normal appearance, PERRL, EOMI. Absent: scleral icterus, conjunctival injection, periorbital swelling Respiratory exam: Present: normal lung sounds bilaterally. Absent: respiratory distress, wheezes, rales, rhonchi, stridor Cardiovascular Exam: Present: regular rate, normal rhythm, normal heart sounds. Absent: systolic murmur, diastolic murmur, rubs, gallop, clicks Neurological exam: Present: alert, oriented X3, CN II-XII intact Psychiatric exam: Present: normal affect, normal mood Skin exam: Present: warm, dry, intact, normal color. Absent: rash Course Vital Signs 05/11/23 05/11/23 05/11/23 17:27 17:29 21:22 Temperature 98.3 F 97.9 F Pulse Rate 92 82 Pulse Rate [ 95 Pulse Oximetery ] Respiratory 18 18 Rate Blood Pressure 116/75 103/74 O2 Sat by Pulse 95 97 Oximetry Medical Decision Making - Medical Decision Making This is a 27-year-old female who presents to the emergency department for dizziness and near-syncope. Was pt. sent in by a medical professional or institution? @ -No Did you speak to anyone other than the patient for history? @ -No Did you review nursing and triage notes? @ -Yes, and I agree, it is accurate with regards to the patient's symptoms. Were old charts reviewed? @ -No Differential Diagnosis? @ -Differential Dizziness: Benign paroxysmal positional Vertigo, Menieres disease, otitis media, acoustic neuroma, vertebrobasilar insufficiency, cerebellar stroke, encephalitis, hypovolemic, arrhythmia, coronary artery syndrome, anemia, this is not meant to be an all-inclusive list EKG interpreted by me (3pts min.)? @ -EKG interpreted by me demonstrating the following: Sinus rhythm. Ventricular rate 73 beats per minute, NH interval 161 ms, QRS duration 88 ms, QTC 414 ms, X-rays interpreted by me (1pt min.)? @ -Not obtained CT interpreted by me (1pt min.)? @ -Not obtained U/S interpreted by me (1pt. min.)? @ -Not obtained What testing was considered but not performed? (CT, X-rays, U/S, labs)? Why? @ -None What meds were considered but not given? Why? @ -None Did you discuss the management of the patient with other professionals? @ -No Did you reconcile home meds? @ -No Was smoking cessation discussed for >3mins.? @ -No Was critical care preformed (if so, how long)? @ -No Were there social determinants of health that impacted care today? How? (Homelessness, low income, unemployed, alcoholism, drug addiction, transportation, low edu. Level, literacy, decrease access to med. care, correction, rehab)? @ -No Was there de-escalation of care discussed even if they declined? (Discuss DNR or withdrawal of care, Hospice)? @ -No What co-morbidities impacted this encounter? (DM, HTN, Smoking, COPD, CAD, Cancer, CVA, Hep., AIDS, mental health diagnosis, sleep apnea, morbid obesity)? @ - Was patient admitted / discharged? @ -Discharged. Lab work obtained and found to be nonactionable. Her low hemoglobin of 9.4 is consistent with prior values and her known history of anemia. States that anything above 9 is very good for her. Urinalysis consistent with contamination. She was given a 2 L bolus of IV fluids and Tylenol, and started to feel much better. heart tones were auscultated at 150-160 bpm without any decelerations. She has a follow-up appointment with her DOME[facility] VIOLENCE COUNSELOR, Dr. Yeung on [address] in 3 days. She is instructed to discuss her symptoms with him as well. Otherwise advised she remain well-hydrated and get plenty of rest. Undiagnosed new problem with uncertain prognosis? @ -None Drug Therapy requiring intensive monitoring for toxicity (Heparin, Nitro, Insulin, Cardizem)? @ -None Were any procedures done? @ -None Diagnosis/symptom? @ -Dizziness, near syncope Acute, or Chronic, or Acute on Chronic? @ -Acute Uncomplicated (without systemic symptoms) or Complicated (systemic symptoms)? @ -Uncomplicated Side effects of treatment? @ -None Exacerbation, Progression, or Severe Exacerbation] @ -Not applicable Poses a threat to life or bodily function? @ -No Return precautions reviewed in depth, the patient is instructed to return to the emergency department with any new, worsening, or concerning symptoms. Patient verbalized understanding. This case was discussed in detail with the attending ED physician, Dr. Read. Presentation, findings, and treatment plan discussed in detail as well. - Lab Data Result diagrams: 05/11/23 18:28 05/11/23 18:28 Lab Results 05/11/23 05/11/23 05/11/23 Range/Units 18:28 18:28 18:28 WBC 9.0 (3.8-10.6) k/uL RBC 3.82 (3.80-5.40) m/uL Hgb 9.4 L (11.4-16.0) gm/dL Hct 29.3 L (34.0-46.0) % MCV 76.8 L (80.0-100.0) fL MCH 24.6 L (25.0-35.0) pg MCHC 32.1 (31.0-37.0) g/dL RDW 19.1 H (11.5-15.5) % Plt Count 145 L (150-450) k/uL MPV 9.4 Neutrophils % 79 % Lymphocytes % 14 % Monocytes % 5 % Eosinophils % 1 % Basophils % 0 % Neutrophils # 7.1 (1.3-7.7) k/uL Lymphocytes # 1.2 (1.0-4.8) k/uL Monocytes # 0.5 (0-1.0) k/uL Eosinophils # 0.1 (0-0.7) k/uL Basophils # 0.0 (0-0.2) k/uL Hypochromasia Marked Anisocytosis Slight Microcytosis Moderate PT 9.7 (9.0-12.0) sec INR 0.9 (<1.2) APTT 23.9 (22.0-30.0) sec Sodium (137-145) mmol/L Potassium (3.5-5.1) mmol/L Chloride (98-107) mmol/L Carbon Dioxide (22-30) mmol/L Anion Gap mmol/L BUN (7-17) mg/dL Creatinine (0.52-1.04) mg/dL Est GFR (CKD-EPI)AfAm (>60 ml/min/1.73 sqM) Est GFR (CKD-EPI)NonAf (>60 ml/min/1.73 sqM) Glucose (74-99) mg/dL Calcium (8.4-10.2) mg/dL Total Bilirubin (0.2-1.3) mg/dL AST (14-36) U/L ALT (4-34) U/L Alkaline Phosphatase (38-126) U/L Troponin I (0.000-0.034) ng/mL Total Protein (6.3-8.2) g/dL Albumin (3.5-5.0) g/dL Urine Color Yellow Urine Appearance Slightly Cloudy H (Clear) Urine pH 6.5 (5.0-8.0) Ur Specific [place] 1.010 (1.001-1.035) Urine Protein Negative (Negative) Urine Glucose (UA) Negative (Negative) Urine Ketones Negative (Negative) Urine Blood Negative (Negative) Urine Nitrite Negative (Negative) Urine Bilirubin Negative (Negative) Urine Urobilinogen 0.2 (<2.0) mg/dL Ur Leukocyte Esterase Large H (Negative) Urine RBC 2 (0-5) /hpf Urine WBC 40 H (0-5) /hpf Ur Squamous Epith Cells 25 H (0-4) /hpf Urine Bacteria Few H (None) /hpf 05/11/23 05/11/23 Range/Units 18:28 18:28 WBC (3.8-10.6) k/uL RBC (3.80-5.40) m/uL Hgb (11.4-16.0) gm/dL Hct (34.0-46.0) % MCV (80.0-100.0) fL MCH (25.0-35.0) pg MCHC (31.0-37.0) g/dL RDW (11.5-15.5) % Plt Count (150-450) k/uL MPV Neutrophils % % Lymphocytes % % Monocytes % % Eosinophils % % Basophils % % Neutrophils # (1.3-7.7) k/uL Lymphocytes # (1.0-4.8) k/uL Monocytes # (0-1.0) k/uL Eosinophils # (0-0.7) k/uL Basophils # (0-0.2) k/uL Hypochromasia Anisocytosis Microcytosis PT (9.0-12.0) sec INR (<1.2) APTT (22.0-30.0) sec Sodium 134 L (137-145) mmol/L Potassium 3.7 (3.5-5.1) mmol/L Chloride 104 (98-107) mmol/L Carbon Dioxide 22 (22-30) mmol/L Anion Gap 8 mmol/L BUN 12 (7-17) mg/dL Creatinine 0.62 (0.52-1.04) mg/dL Est GFR (CKD-EPI)AfAm >90 (>60 ml/min/1.73 sqM) Est GFR (CKD-EPI)NonAf >90 (>60 ml/min/1.73 sqM) Glucose 87 (74-99) mg/dL Calcium 8.1 L (8.4-10.2) mg/dL Total Bilirubin 0.3 (0.2-1.3) mg/dL AST 24 (14-36) U/L ALT 24 (4-34) U/L Alkaline Phosphatase 98 (38-126) U/L Troponin I <0.012 (0.000-0.034) ng/mL Total Protein 6.1 L (6.3-8.2) g/dL Albumin 3.3 L (3.5-5.0) g/dL Urine Color Urine Appearance (Clear) Urine pH (5.0-8.0) Ur Specific [place] (1.001-1.035) Urine Protein (Negative) Urine Glucose (UA) (Negative) Urine Ketones (Negative) Urine Blood (Negative) Urine Nitrite (Negative) Urine Bilirubin (Negative) Urine Urobilinogen (<2.0) mg/dL Ur Leukocyte Esterase (Negative) Urine RBC (0-5) /hpf Urine WBC (0-5) /hpf Ur Squamous Epith Cells (0-4) /hpf Urine Bacteria (None) /hpf Disposition Clinical Impression: Dizziness, Near syncope Disposition: HOME SELF-CARE Instructions (If sedation given, give patient instructions): Near Syncope (ED), Dizziness (ED) Additional Instructions: Return to the emergency department with any new, worsening, or concerning symptoms. Take Tylenol as needed for pain relief. Make sure you remain well- hydrated. Follow up with your [facility]ENCE COUNSELOR as scheduled, sooner if needed. Follow up with your primary care provider in 1-2 days. Is patient prescribed a controlled substance at d/c from ED?: No Referrals: Garland Lopez MD [Primary Care Provider] - 1-2 days
[2023-05-11 18:42] LABS: Anisocytosis Slight; Basophils % (A) 0 %; Eosinophils # (A) 0.1 k/uL (0-0.7); Eosinophils % (A) 1 %; HCT 29.3 % (34.0-46.0); HGB 9.4 gm/dL (11.4-16.0); Hypochromasia Marked; Lymphocytes # (A) 1.2 k/uL (1.0-4.8); Lymphocytes % (A) 14 %; MCH 24.6 pg (25.0-35.0); MCHC 32.1 g/dL (31.0-37.0); MCV 76.8 fL (80.0-100.0); Mean Platelet Volume 9.4; Microcytosis Moderate; Monocytes # (A) 0.5 k/uL (0-1.0); Monocytes % (A) 5 %; Neutrophils # (A) 7.1 k/uL (1.3-7.7); Neutrophils % (A) 79 %; Platelet Count 145 k/uL (150-450); RBC 3.82 m/uL (3.80-5.40); RDW 19.1 % (11.5-15.5)
[2023-05-11 18:51] LABS: INR 0.9 (<1.2); Partial Thromboplastin Time 23.9 sec (22.0-30.0); Prothrombin Time 9.7 sec (9.0-12.0)
[2023-05-11 18:57] LABS: ALT 24 U/L (4-34); AST 24 U/L (14-36); African American GFR (CKD) >90 (>60 ml/min/1.73 sqM); Albumin 3.3 g/dL (3.5-5.0); Alkaline Phosphatase 98 U/L (38-126); Anion Gap 8 mmol/L; Blood Urea Nitrogen 12 mg/dL (7-17); Calcium 8.1 mg/dL (8.4-10.2); Carbon Dioxide 22 mmol/L (22-30); Chloride 104 mmol/L (98-107); Glucose 87 mg/dL (74-99); Non-African American GFR(CKD) >90 (>60 ml/min/1.73 sqM); Potassium 3.7 mmol/L (3.5-5.1); Sodium 134 mmol/L (137-145); Total Bilirubin 0.3 mg/dL (0.2-1.3); Total Protein 6.1 g/dL (6.3-8.2)
[2023-05-11 21:07] LABS: Appearance,Urine Slightly Cloudy (Clear); Color,Urine Yellow; PH, Urine 6.5 (5.0-8.0); Protein,Urine Negative (Negative)
[2023-05-11 21:08] LABS: Bacteria,Urine Few /hpf; Bilirubin,Urine Negative (Negative); Blood,Urine Negative (Negative); Glucose,Urine (UA) Negative (Negative); Ketones,Urine Negative (Negative); Leukocyte Esterase,Urine Large (Negative); Nitrite,Urine Negative (Negative); RBC,Urine 2 /hpf (0-5); Squamous Epithelial Cell,Urine 25 /hpf (0-4); Urobilinogen,Urine 0.2 mg/dL (<2.0); WBC,Urine 40 /hpf (0-5)
[2023-05-11 21:23] VITALS: BP 103/74; PULSE 82; TEMP 97.9
[2023-05-11] MEDS ORDERED: ACETAMINOPHEN TAB 325 MG TAB PO STA (21:29)
== END 2023-05-11 21:41 | disposition home or self-care (01) ==
LOC: EC 17:26
DX: O26.892 Other specified pregnancy related conditions, second trimester (principal); R55 Syncope and collapse; R42 Dizziness and giddiness; O99.512 Diseases of the respiratory system complicating pregnancy, second trimester; J45.909 Unspecified asthma, uncomplicated; O24.112 Pre-existing type 2 diabetes mellitus, in pregnancy, second trimester; Z87.891 Personal history of nicotine dependence; Z86.59 Personal history of other mental and behavioral disorders; Z79.82 Long term (current) use of aspirin; Z79.899 Other long term (current) drug therapy; Z88.2 Allergy status to sulfonamides; Z88.8 Allergy status to other drugs, medicaments and biological substances; Z91.018 Allergy to other foods; Z3A.25 25 weeks gestation of pregnancy
CPT/HCPCS: 36415; 80053; 81001; 84484; 85025; 85610; 85730; 87086; 93005; 96360; 99285

== ENCOUNTER 2023-10-26 07:56 | Emergency (ER) | payer OTHER ==
[2023-10-26] MEDS ORDERED: ONDANSETRON 4 MG/2 ML VIAL IVP STA (08:15)
[2023-10-26] MEDS ORDERED: SODIUM CHLORIDE 0.9% 1,000 ML IV STA (08:15)
[2023-10-26] MEDS ORDERED: KETOROLAC 15 MG/ML 1 ML VIAL IVP STA (08:15)
--- NOTE | 2023-10-26 08:28 | ED ---
Abdominal Pain HPI - General Chief Complaint: Abdominal Pain Stated Complaint: ABD PAIN Time Seen by Provider: 10/26/23 08:00 Source: patient Mode of arrival: EMS Limitations: no limitations - History of Present Illness Initial Comments: 27 year-old female presents emergency department reporting right upper quadrant abdominal pain. States the pain started approximately 30 minutes after she ate a donut for breakfast. States that the pain radiates up to her right shoulder. She denies taking anything for pain at home before calling EMS. Admits to sherri reynolds with an episode of vomiting. No shortness of breath. Denies any changes in her bowel or bladder habits. Currently on her menstrual cycle and denies concern for . Denies any fevers. No other alleviating, precipitating or modifying factors - Related Data Home Medications Medication Instructions Recorded Confirmed busPIRone HCl [Buspar] 5 mg PO DAILY 01/15/22 05/07/23 Albuterol Sulfate [Albuterol 2 puff PO RT-BID PRN 05/07/23 05/07/23 Sulfate Hfa] Ascorbic Acid [Vitamin C] 500 mg PO DAILY 05/07/23 05/07/23 Aspirin EC [Ecotrin Low Dose] 81 mg PO DAILY 05/07/23 05/07/23 Ergocalciferol (Vitamin D2) 1,250 mcg PO ALEXANDRA 05/07/23 05/07/23 [Drisdol (50,000 Iu)] Folic Acid 1 mg PO DAILY 05/07/23 05/07/23 Ondansetron [Zofran] 4 mg PO QID 05/07/23 05/07/23 Pnv,Calcium 72/Iron/Folic Acid 1 tab PO DAILY 05/07/23 05/07/23 [[place] Plus Tablet] Previous Rx's Medication Instructions Recorded Cefdinir [Omnicef] 300 mg PO Q12HR #14 capsule 05/10/23 Cyanocobalamin [Vitamin B-12] 500 mcg PO DAILY #30 tab 05/10/23 HYDROcodone/APAP 5-325MG [[place] 1 tab PO Q6HR PRN 3 Days #12 tab 10/26/23 5-325] Ondansetron Odt [Zofran Odt] 4 mg PO Q8HR PRN #15 tab 10/26/23 Allergies Allergy/AdvReac Type Severity Reaction Status Date / Time nut - unspecified Allergy Anaphylaxis Verified 10/26/23 08:04 peanut Allergy Anaphylaxis Verified 10/26/23 08:04 Penicillins Allergy Anaphylaxis Verified 10/26/23 08:04 Sulfa (Sulfonamide Allergy Rash/Hives Verified 10/26/23 08:04 Antibiotics) tree nut [Nut] Allergy Anaphylaxis Verified 10/26/23 08:04 Review of Systems ROS Statement: Those systems with pertinent positive or pertinent negative responses have been documented in the HPI. ROS Other: All systems not noted in ROS Statement are negative. Past Medical History Past Medical History: Asthma, Diabetes Mellitus, Seizure Disorder, Thyroid Disorder Additional Past Medical History / Comment(s): cerebral palsy, gullian barre in 2010, multiple miscarriages, anemia. Currently 14 weeks 02/21/2023 History of Any Multi-Drug Resistant Organisms: None Reported Past Surgical History: No Surgical Hx Reported Additional Past Surgical History / Comment(s): D&C Past Anesthesia/Blood Transfusion Reactions: No Reported Reaction Additional Past Anesthesia/Blood Transfusion Reaction / Comment(s): FATHER- TAKES LONGER TO WAKE UP WITH ANESTHESIA". "takes longer to wake up" Past Psychological History: Anxiety, Bipolar Smoking Status: Former smoker Past Alcohol Use History: None Reported Past Drug Use History: None Reported - Past Family History Mother Family Medical History: Diabetes Mellitus, Hypertension, Seizure Disorder, Alexandra praventricular Tachycardia (SVT) Additional Family Medical History / Comment(s): SVT Father History Unknown: Yes General Exam Limitations: no limitations General appearance: alert, in no apparent distress Head exam: Present: atraumatic, normocephalic, normal inspection Eye exam: Present: normal appearance, PERRL, EOMI. Absent: scleral icterus, conjunctival injection, periorbital swelling ENT exam: Present: normal exam, mucous membranes moist Neck exam: Present: normal inspection. Absent: tenderness, meningismus, lymphadenopathy Respiratory exam: Present: normal lung sounds bilaterally. Absent: respiratory distress, wheezes, rales, rhonchi, stridor Cardiovascular Exam: Present: regular rate, normal rhythm, normal heart sounds. Absent: systolic murmur, diastolic murmur, rubs, gallop, clicks GI/Abdominal exam: Present: soft, tenderness (ruq), normal bowel sounds. Absent: distended, guarding, rebound, rigid Extremities exam: Present: normal inspection, full ROM, normal capillary refill. Absent: tenderness, pedal edema, joint swelling, calf tenderness Back exam: Present: normal inspection Neurological exam: Present: alert, oriented X3, CN II-XII intact Psychiatric exam: Present: normal affect, normal mood Skin exam: Present: warm, dry, intact, normal color. Absent: rash Course Vital Signs 10/26/23 10/26/23 10/26/23 08:00 08:03 09:48 Temperature 98.5 F Pulse Rate 77 68 94 Respiratory 16 16 20 Rate Blood Pressure 112/76 112/76 106/63 O2 Sat by Pulse 98 95 98 Oximetry 10/26/23 12:04 Temperature 98.1 F Pulse Rate 83 Respiratory 18 Rate Blood Pressure 114/68 O2 Sat by Pulse 99 Oximetry Medical Decision Making - Medical Decision Making Was pt. sent in by a medical professional or institution (, PA, LAN MANAGER, urgent care, hospital, or half-way...) When possible be specific @ -No Did you speak to anyone other than the patient for history (EMS, parent, family, police, friend...)? What history was obtained from this source @ -EMS Did you review nursing and triage notes (agree or disagree)? Why? @ -I reviewed and agree with nursing and triage notes Were old charts reviewed (outside hosp., previous admission, EMS record, old EKG, old radiological studies, urgent care reports/EKG's, half-way records)? Report findings @ -No old charts were reviewed Differential Diagnosis (chest pain, altered mental status, abdominal pain women, abdominal pain men, vaginal bleeding, weakness, fever, dyspnea, syncope, headache, dizziness, GI bleed, back pain, seizure, CVA, palpatations, mental health, musculoskeletal)? @ -Differential Abdominal Pain Women: Appendicitis, Cholecystitis, diverticulosis, ischemic bowel, pancreatitis, hepatitis, UTI, gastroenteritis, AAA, incarcerated hernia, bowel obstruction, constipation, inflammatory bowel, hepatitis, peptic ulcer disease, splenic infarction, perforated viscus, vulvitis, ovarian torsion, PID, kidney stone, placenta abruption, this is not meant to be an all-inclusive list EKG interpreted by me (3pts min.). @ -yes and demonstrates sinus rhythm with a rate of 76. OH interval 182. QRS 84. QTC of 466. No acute ST segment elevations or depressions X-rays interpreted by me (1pt min.). @ -None done CT interpreted by me (1pt min.). @ -None done U/S interpreted by me (1pt. min.). @ -Yes and demonstrates gallstones What testing was considered but not performed or refused? (CT, X-rays, U/S, labs)? Why? @ -None What meds were considered but not given or refused? Why? @ -None Did you discuss the management of the patient with other professionals (professionals i.e. , PA, LAN MANAGER, lab, RT, psych nurse, medical social consultant, head inspector, teacher, fire information officer, returned case inspector)? Give summary @ -No Was smoking cessation discussed for >3mins.? @ -No Was critical care preformed (if so, how long)? @ -No Were there social determinants of health that impacted care today? How? (Homelessness, low income, unemployed, alcoholism, drug addiction, transportation, low edu. Level, literacy, decrease access to med. care, retirement, rehab)? @ -No Was there de-escalation of care discussed even if they declined (Discuss DNR or withdrawal of care, Hospice)? DNR status @ -No What co-morbidities impacted this encounter? (DM, HTN, Smoking, COPD, CAD, Ca ncer, CVA, ARF, Chemo, Hep., AIDS, mental health diagnosis, sleep apnea, morbid obesity)? @ -None Was patient admitted / discharged? Hospital course, mention meds given and route, prescriptions, significant lab abnormalities, going to OR and other pertinent info. @ -Upon arrival patient was placed in room 23. A thorough history and physical exam was performed. IV access was established. Patient was given Toradol for pain control. Laboratory studies are conducted. She does have an ultrasound performed which demonstrates gallstones. I did reevaluate the patient. Continues to have pain. She is given 4 of morphine and reevaluated. Pain is now controlled. I did discuss diagnosis, differential and treatment options. This time patient will be discharged home. Needs to follow-up with surgery for possible cholecystectomy. Recommend that she eat a bland diet. She'll be given medications to take at home for any pain control. Return for any new or worsening symptoms per patient was agreeable to the plan and was discharged in stable condition Undiagnosed new problem with uncertain prognosis? @ -No Drug Therapy requiring intensive monitoring for toxicity (Heparin, Nitro, Insulin, Cardizem)? @ -No Were any procedures done? @ -No Diagnosis/symptom? @ -Acute right upper quadrant abdominal pain, acute cholelithiasis Acute, or Chronic, or Acute on Chronic? @ -acute Uncomplicated (without systemic symptoms) or Complicated (systemic symptoms)? @ -complicated Side effects of treatment? @ -No Exacerbation, Progression, or Severe Exacerbation? @ -No Poses a threat to life or bodily function? How? (Chest pain, USA, OR, pneumonia, PE, COPD, DKA, ARF, appy, cholecystitis, CVA, Diverticulitis, Homicidal, Suicidal, threat to staff... and all critical care pts) @ -No - Lab Data Result diagrams: 10/26/23 08:15 10/26/23 08:15 Lab Results 10/26/23 10/26/23 10/26/23 Range/Units 08:15 08:15 08:15 WBC 6.9 (3.8-10.6) k/uL RBC 4.61 (3.80-5.40) m/uL Hgb 14.6 (11.4-16.0) gm/dL Hct 42.3 (34.0-46.0) % MCV 91.6 (80.0-100.0) fL MCH 31.6 (25.0-35.0) pg MCHC 34.5 (31.0-37.0) g/dL RDW 13.8 (11.5-15.5) % Plt Count 183 (150-450) k/uL MPV 8.8 Neutrophils % 61 % Lymphocytes % 30 % Monocytes % 5 % Eosinophils % 2 % Basophils % 1 % Neutrophils # 4.2 (1.3-7.7) k/uL Lymphocytes # 2.1 (1.0-4.8) k/uL Monocytes # 0.4 (0-1.0) k/uL Eosinophils # 0.1 (0-0.7) k/uL Basophils # 0.0 (0-0.2) k/uL Sodium (137-145) mmol/L Potassium (3.5-5.1) mmol/L Chloride (98-107) mmol/L Carbon Dioxide (22-30) mmol/L Anion Gap mmol/L BUN (7-17) mg/dL Creatinine (0.52-1.04) mg/dL Est GFR (CKD-EPI)AfAm (>60 ml/min/1.73 sqM) Est GFR (CKD-EPI)NonAf (>60 ml/min/1.73 sqM) Glucose (74-99) mg/dL Calcium (8.4-10.2) mg/dL Total Bilirubin (0.2-1.3) mg/dL AST (14-36) U/L ALT (4-34) U/L Alkaline Phosphatase (38-126) U/L Troponin I (0.000-0.034) ng/mL Total Protein (6.3-8.2) g/dL Albumin (3.5-5.0) g/dL Lipase (23-300) U/L Urine Color Colorless Urine Appearance Clear (Clear) Urine pH 6.0 (5.0-8.0) Ur Specific Pike 1.019 (1.001-1.035) Urine Protein Negative (Negative) Urine Glucose (UA) Negative (Negative) Urine Ketones Negative (Negative) Urine Blood Trace H (Negative) Urine Nitrite Negative (Negative) Urine Bilirubin Negative (Negative) Urine Urobilinogen <2.0 (<2.0) mg/dL Ur Leukocyte Esterase Moderate H (Negative) Urine RBC 1 (0-5) /hpf Urine WBC 4 (0-5) /hpf Ur Squamous Epith Cells 6 H (0-4) /hpf Urine Mucus Rare H (None) /hpf Urine HCG, Qual Not Detected (Not Detectd) 10/26/23 10/26/23 Range/Units 08:15 08:15 WBC (3.8-10.6) k/uL RBC (3.80-5.40) m/uL Hgb (11.4-16.0) gm/dL Hct (34.0-46.0) % MCV (80.0-100.0) fL MCH (25.0-35.0) pg MCHC (31.0-37.0) g/dL RDW (11.5-15.5) % Plt Count (150-450) k/uL MPV Neutrophils % % Lymphocytes % % Monocytes % % Eosinophils % % Basophils % % Neutrophils # (1.3-7.7) k/uL Lymphocytes # (1.0-4.8) k/uL Monocytes # (0-1.0) k/uL Eosinophils # (0-0.7) k/uL Basophils # (0-0.2) k/uL Sodium 139 (137-145) mmol/L Potassium 4.1 (3.5-5.1) mmol/L Chloride 102 (98-107) mmol/L Carbon Dioxide 24 (22-30) mmol/L Anion Gap 13 mmol/L BUN 23 H (7-17) mg/dL Creatinine 0.64 (0.52-1.04) mg/dL Est GFR (CKD-EPI)AfAm >90 (>60 ml/min/1.73 sqM) Est GFR (CKD-EPI)NonAf >90 (>60 ml/min/1.73 sqM) Glucose 138 H (74-99) mg/dL Calcium 9.3 (8.4-10.2) mg/dL Total Bilirubin 0.5 (0.2-1.3) mg/dL AST 35 (14-36) U/L ALT 31 (4-34) U/L Alkaline Phosphatase 113 (38-126) U/L Troponin I <0.012 (0.000-0.034) ng/mL Total Protein 6.8 (6.3-8.2) g/dL Albumin 4.1 (3.5-5.0) g/dL Lipase 103 (23-300) U/L Urine Color Urine Appearance (Clear) Urine pH (5.0-8.0) Ur Specific Pike (1.001-1.035) Urine Protein (Negative) Urine Glucose (UA) (Negative) Urine Ketones (Negative) Urine Blood (Negative) Urine Nitrite (Negative) Urine Bilirubin (Negative) Urine Urobilinogen (<2.0) mg/dL Ur Leukocyte Esterase (Negative) Urine RBC (0-5) /hpf Urine WBC (0-5) /hpf Ur Squamous Epith Cells (0-4) /hpf Urine Mucus (None) /hpf Urine HCG, Qual (Not Detectd) Disposition Clinical Impression: RUQ pain, Cholelithiasis Disposition: HOME SELF-CARE Condition: Stable Instructions (If sedation given, give patient instructions): Gallstones (ED) Additional Instructions: Take the pain medications only as needed for pain. Take the nausea medications as needed. Follow-up with the surgeon to talk about your gallstones. eat a bland diet Prescriptions: HYDROcodone/APAP 5-325MG [[place] 5-325] 1 tab PO Q6HR PRN 3 Days #12 tab PRN Reason: Severe Breakthrough Pain Ondansetron Odt [Zofran Odt] 4 mg PO Q8HR PRN #15 tab PRN Reason: Nausea Is patient prescribed a controlled substance at d/c from ED?: Yes When asked, does pt state using other controlled substances?: No If prescribed controlled substance>3 days was MAPS reviewed?: Prescribed <3 Days Referrals: Garland Lopez MD [Primary Care Provider] - 1-2 days Carmita Romano MD [STAFF PHYSICIAN] - 1-2 days Dionte Marr MD [STAFF PHYSICIAN] - 1-2 days Time of Disposition: 11:45
[2023-10-26 08:41] LABS: Basophils % (A) 1 %; Eosinophils # (A) 0.1 k/uL (0-0.7); Eosinophils % (A) 2 %; HCT 42.3 % (34.0-46.0); HGB 14.6 gm/dL (11.4-16.0); Lymphocytes # (A) 2.1 k/uL (1.0-4.8); Lymphocytes % (A) 30 %; MCH 31.6 pg (25.0-35.0); MCHC 34.5 g/dL (31.0-37.0); MCV 91.6 fL (80.0-100.0); Mean Platelet Volume 8.8; Monocytes # (A) 0.4 k/uL (0-1.0); Monocytes % (A) 5 %; Neutrophils # (A) 4.2 k/uL (1.3-7.7); Neutrophils % (A) 61 %; Platelet Count 183 k/uL (150-450); RBC 4.61 m/uL (3.80-5.40); RDW 13.8 % (11.5-15.5); WBC 6.9 k/uL (3.8-10.6)
[2023-10-26 09:00] LABS: Appearance,Urine Clear (Clear); Bilirubin,Urine Negative (Negative); Blood,Urine Trace (Negative); Color,Urine Colorless; Glucose,Urine (UA) Negative (Negative); Ketones,Urine Negative (Negative); Leukocyte Esterase,Urine Moderate (Negative); Mucus,Urine Rare /hpf; Nitrite,Urine Negative (Negative); Protein,Urine Negative (Negative); RBC,Urine 1 /hpf (0-5); Specific Gravity,Urine 1.019 (1.001-1.035); Squamous Epithelial Cell,Urine 6 /hpf (0-4); Urobilinogen,Urine <2.0 mg/dL (<2.0); WBC,Urine 4 /hpf (0-5)
--- NOTE | 2023-10-26 09:07 | US ---
EXAMINATION TYPE: US gallbladder DATE OF EXAM: 10/26/2023 COMPARISON: NONE CLINICAL INDICATION: Female, 27 years old with history of ruq pain; RUQ pain began this morning at 6a m after eating donut TECHNIQUE: Multiple sonographic images of the right upper quadrant are obtained. FINDINGS: EXAM MEASUREMENTS: Liver Length: 16.7 cm Gallbladder Wall: 0.2 cm CBD: 0.5 cm Right Kidney: 9.7x3.7x5.0 cm [employer] NOTES: Pancreas: Tail obscured by overlying bowel gas Liver: upper limits Gallbladder: distended, several small echogenic shadowing foci noted Evidence for sonographic Jorgensen's sign: No CBD: wnl Right Kidney: No hydronephrosis or masses seen exam limited by bowel and body habitus IMPRESSION: Small gallstones. No gallbladder wall thickening or pericholecystic fluid evident.
[2023-10-26 09:11] LABS: ALT 31 U/L (4-34); AST 35 U/L (14-36); African American GFR (CKD) >90 (>60 ml/min/1.73 sqM); Albumin 4.1 g/dL (3.5-5.0); Alkaline Phosphatase 113 U/L (38-126); Anion Gap 13 mmol/L; Blood Urea Nitrogen 23 mg/dL (7-17); Calcium 9.3 mg/dL (8.4-10.2); Carbon Dioxide 24 mmol/L (22-30); Chloride 102 mmol/L (98-107); Glucose 138 mg/dL (74-99); Lipase 103 U/L (23-300); Non-African American GFR(CKD) >90 (>60 ml/min/1.73 sqM); Potassium 4.1 mmol/L (3.5-5.1); Sodium 139 mmol/L (137-145); Total Bilirubin 0.5 mg/dL (0.2-1.3); Total Protein 6.8 g/dL (6.3-8.2)
[2023-10-26] MEDS ORDERED: MORPHINE SULFATE 4 MG/ML SYRINGE IVP STA (09:39)
[2023-10-26 12:09] VITALS: BP 114/68; PULSE 83; RESP 18; TEMP 98.1
== END 2023-10-26 12:07 | disposition home or self-care (01) ==
LOC: EC 07:56
DX: K80.20 Calculus of gallbladder without cholecystitis without obstruction (principal); E11.9 Type 2 diabetes mellitus without complications; J45.909 Unspecified asthma, uncomplicated; F31.9 Bipolar disorder, unspecified; F41.9 Anxiety disorder, unspecified; Z79.899 Other long term (current) drug therapy; Z87.891 Personal history of nicotine dependence; Z91.010 Allergy to peanuts; Z88.0 Allergy status to penicillin; Z88.2 Allergy status to sulfonamides
CPT/HCPCS: 36415; 93005; 80053; 83690; 84484; 85025; 81001; 81025; 76705; 99285; 96374; 96375 ×2; 96361; J2270; J2405; J1885

== ENCOUNTER 2023-11-10 11:44 | Observation (INO) | payer OTHER ==
[2023-11-10] MEDS ORDERED: SODIUM CHLORIDE 0.9% 1,000 ML IV STA (12:01)
[2023-11-10] MEDS ORDERED: ONDANSETRON 4 MG/2 ML VIAL IVP STA (12:01)
[2023-11-10] MEDS ORDERED: MORPHINE SULFATE 4 MG/ML SYRINGE IVP STA (12:03)
--- NOTE | 2023-11-10 12:05 | ED ---
General Adult HPI - General Chief complaint: Abdominal Pain Stated complaint: abd pain Time Seen by Provider: 11/10/23 11:49 Source: EMS Mode of arrival: EMS Limitations: no limitations - History of Present Illness Initial comments: 28-year-old female presents to the emergency department for evaluation of right upper quadrant pain radiating to bilateral shoulders. She states that this started around 11 AM this morning. She does admit to prior episodes of this that started about 2 weeks ago. She denies any known triggers. She states that she occasionally can manage these at home. She has not taken any pain medication today because she is concerned about taking her Gustine's at home while being alone. She admits to nausea with vomiting. Denies recent fever, chills. Patient reports that she is scheduled to have a cholecystectomy on 18 November. Patient also reports that she had a bilateral tubal ligation on November [address] Yeung at [facility]. She is currently breast-feeding. - Related Data Home Medications Medication Instructions Recorded Confirmed busPIRone HCl [Buspar] 5 mg PO BID 01/15/22 11/10/23 Albuterol Sulfate [Albuterol 2 puff INHALATION RT-Q4H PRN 05/07/23 11/10/23 Sulfate Hfa] Ascorbic Acid [Vitamin C] 500 mg PO DAILY 05/07/23 11/10/23 Folic Acid 1 mg PO DAILY 05/07/23 11/10/23 Pnv,Calcium 72/Iron/Folic Acid 1 tab PO DAILY 05/07/23 11/10/23 [Westab Plus Tablet] Ibuprofen [Motrin] 600 mg PO Q6H PRN 11/10/23 11/10/23 Midazolam [Nayzilam] 5 mg NASAL DIRECTED PRN 11/10/23 11/10/23 Allergies Allergy/AdvReac Type Severity Reaction Status Date / Time nut - unspecified Allergy Anaphylaxis Verified 11/10/23 16:18 peanut Allergy Anaphylaxis Verified 11/10/23 16:18 Penicillins Allergy Anaphylaxis Verified 11/10/23 16:18 Sulfa (Sulfonamide Allergy Rash/Hives Verified 11/10/23 16:18 Antibiotics) tree nut [Nut] Allergy Anaphylaxis Verified 11/10/23 16:18 diphenhydramine AdvReac Confusion Verified 11/10/23 16:18 Review of Systems ROS Statement: Those systems with pertinent positive or pertinent negative responses have been documented in the HPI. ROS Other: All systems not noted in ROS Statement are negative. Past Medical History Past Medical History: Asthma, Diabetes Mellitus, Seizure Disorder, Thyroid Disorder Additional Past Medical History / Comment(s): cerebral palsy, gullian barre in 2010, multiple miscarriages, anemia. Currently 14 weeks 02/21/2023 History of Any Multi-Drug Resistant Organisms: None Reported Past Surgical History: No Surgical Hx Reported Additional Past Surgical History / Comment(s): D&C Past Anesthesia/Blood Transfusion Reactions: No Reported Reaction Additional Past Anesthesia/Blood Transfusion Reaction / Comment(s): FATHER- TAKES LONGER TO WAKE UP WITH ANESTHESIA". "takes longer to wake up" Past Psychological History: Anxiety, Bipolar Smoking Status: Former smoker Past Alcohol Use History: None Reported Past Drug Use History: None Reported - Past Family History Mother Family Medical History: Diabetes Mellitus, Hypertension, Seizure Disorder, Supraventricular Tachycardia (SVT) Additional Family Medical History / Comment(s): SVT Father History Unknown: Yes General Exam Limitations: no limitations General appearance: alert, in distress (d/t pain) Head exam: Present: atraumatic, normocephalic, normal inspection Eye exam: Present: normal appearance, PERRL, EOMI. Absent: scleral icterus, conjunctival injection, periorbital swelling ENT exam: Present: normal exam, mucous membranes moist Neck exam: Present: normal inspection. Absent: tenderness, meningismus, lymphadenopathy Respiratory exam: Present: normal lung sounds bilaterally. Absent: respiratory distress, wheezes, rales, rhonchi, stridor Cardiovascular Exam: Present: regular rate, normal rhythm, normal heart sounds. Absent: systolic murmur, diastolic murmur, rubs, gallop, clicks GI/Abdominal exam: Present: soft, tenderness (Right upper quadrant), normal ashley l sounds, other (Positive Jorgensen sign, ecchymosis to surgical sites without drainage or significant erythema). Absent: distended Extremities exam: Present: normal inspection, full ROM, normal capillary refill. Absent: tenderness, pedal edema, joint swelling, calf tenderness Back exam: Present: normal inspection Neurological exam: Present: alert, oriented X3 Psychiatric exam: Present: normal affect, normal mood Course Vital Signs 11/10/23 11/10/23 11/10/23 11:47 18:26 20:00 Temperature 97.9 F 98.9 F 98.2 F Pulse Rate 69 79 Pulse Rate [ 65 Left] Respiratory 16 16 16 Rate Blood Pressure 121/78 Blood Pressure 111/71 [Left Arm] O2 Sat by Pulse 95 98 93 L Oximetry Medical Decision Making - Medical Decision Making Was pt. sent in by a medical professional or institution ([facility], SHOE [employer]BBLER, urgent care, hospital, or [facility]...) When possible be specific @ -No Did you speak to anyone other than the patient for history (EMS, parent, family, police, friend...)? What history was obtained from this source @ -No Did you review nursing and triage notes (agree or disagree)? Why? @ -I reviewed and agree with nursing and triage notes Were old charts reviewed (outside hosp., previous admission, EMS record, old EKG, old radiological studies, urgent care reports/EKG's, [facility] records)? Report findings @ -Old laboratory studies reviewed from 10-26-2023 Differential Diagnosis (chest pain, altered mental status, abdominal pain women, abdominal pain men, vaginal bleeding, weakness, fever, dyspnea, syncope, headache, dizziness, GI bleed, back pain, seizure, CVA, palpatations, mental health, musculoskeletal)? @ -Differential Abdominal Pain Women: Appendicitis, Cholecystitis, diverticulosis, ischemic bowel, pancreatitis, hepatitis, UTI, gastroenteritis, AAA, incarcerated hernia, bowel obstruction, constipation, inflammatory bowel, hepatitis, peptic ulcer disease, splenic infarction, perforated viscus, vulvitis, ovarian torsion, PID, kidney stone, placenta abruption, this is not meant to be an all-inclusive list EKG interpreted by me (3pts min.). @ -None X-rays interpreted by me (1pt min.). @ -None done CT interpreted by me (1pt min.). @ -None done U/S interpreted by me (1pt. min.). @ -Gallbladder ultrasound shows cholelithiasis, common bile duct and gallbladder wall size within normal limits, positive sonographic Jorgensen sign What testing was considered but not performed or refused? (CT, X-rays, U/S, labs)? Why? @ -None What meds were considered but not given or refused? Why? @ -None Did you discuss the management of the patient with other professionals (professionals i.e. [facility], SHOE COBBLER, lab, RT, psych nurse, social research assistant, park worker supervisor, teacher, airline pilot/first officer, shoe parts caser)? Give summary @ -Discussed with Dr. Reyes. Discussed findings of laboratory studies including increased LFTs from prior visit and results of gallbladder ultrasound. Discussed that patient is scheduled for surgery with Dr. Marr on 11/18/23. A dmission was advised to patient's surgeon. Was smoking cessation discussed for >3mins.? @ -No Was critical care preformed (if so, how long)? @ -No Were there social determinants of health that impacted care today? How? (Homelessness, low income, unemployed, alcoholism, drug addiction, transportati on, low edu. Level, literacy, decrease access to med. care, longterm, rehab)? @ -No Was there de-escalation of care discussed even if they declined (Discuss DNR or withdrawal of care, Hospice)? DNR status @ -No What co-morbidities impacted this encounter? (DM, HTN, Smoking, COPD, CAD, Cancer, CVA, ARF, Chemo, Hep., AIDS, mental health diagnosis, sleep apnea, morbid obesity)? @ -None Was patient admitted / discharged? Hospital course, mention meds given and route, prescriptions, significant lab abnormalities, going to OR and other pertinent info. @ -Admitted. Patient presented to the emergency department for evaluation of right upper quadrant abdominal pain radiating to bilateral shoulder blades. She does have a history of cholelithiasis and is scheduled for cholecystectomy on 11-18-2023. A repeat gallbladder ultrasound was obtained today which showed cholelithiasis, normal gallbladder wall size and common bile duct. Laboratory studies today show WBC 8.0, hemoglobin 14.4; normal coagulation studies; CMP shows sodium 142, potassium 3.8, creatinine 0.73; AST 75, ALT 58, alk phos 153, bilirubin 0.9; UA shows negative protein, negative ketones, negative nitrite, negative leukocyte esterase. Case was discussed with Dr. Reyes. Patient will be admitted for possible cholecystectomy. Patient placed n.p.o. after midnight. Patient understanding agreeable with plan. Patient stable at time of admission. Case discussed with Dr. Levin. Undiagnosed new problem with uncertain prognosis? @ -No Drug Therapy requiring intensive monitoring for toxicity (Heparin, Nitro, Insulin, Cardizem)? @ -No Were any procedures done? @ -No Diagnosis/symptom? @ -Cholelithiasis, biliary colic Acute, or Chronic, or Acute on Chronic? @ -Acute Uncomplicated (without systemic symptoms) or Complicated (systemic symptoms)? @ -Uncomplicated Side effects of treatment? @ -No Exacerbation, Progression, or Severe Exacerbation? @ -No Poses a threat to life or bodily function? How? (Chest pain, USA, LA, pneumonia, PE, COPD, DKA, ARF, appy, cholecystitis, CVA, Diverticulitis, Homicidal, Suicidal, threat to staff... and all critical care pts) @ -No - Lab Data Result diagrams: 11/11/23 09:05 11/11/23 09:05 Lab Results 11/10/23 11/10/23 11/10/23 Range/Units 12:34 12:34 12:34 WBC 8.0 (3.8-10.6) k/uL RBC 4.72 (3.80-5.40) m/uL Hgb 14.4 (11.4-16.0) gm/dL Hct 43.3 (34.0-46.0) % MCV 91.9 (80.0-100.0) fL MCH 30.6 (25.0-35.0) pg MCHC 33.3 (31.0-37.0) g/dL RDW 13.7 (11.5-15.5) % Plt Count 232 (150-450) k/uL MPV 8.8 Neutrophils % 78 % Lymphocytes % 14 % Monocytes % 4 % Eosinophils % 2 % Basophils % 0 % Neutrophils # 6.3 (1.3-7.7) k/uL Lymphocytes # 1.1 (1.0-4.8) k/uL Monocytes # 0.3 (0-1.0) k/uL Eosinophils # 0.2 (0-0.7) k/uL Basophils # 0.0 (0-0.2) k/uL PT 10.0 (10.0-12.5) sec INR 0.9 (<1.2) APTT 28.0 (22.0-30.0) sec Sodium 142 (137-145) mmol/L Potassium 3.8 (3.5-5.1) mmol/L Chloride 107 (98-107) mmol/L Carbon Dioxide 26 (22-30) mmol/L Anion Gap 9 mmol/L BUN 22 H (7-17) mg/dL Creatinine 0.73 (0.52-1.04) mg/dL Est GFR (CKD-EPI)AfAm >90 (>60 ml/min/1.73 sqM) Est GFR (CKD-EPI)NonAf >90 (>60 ml/min/1.73 sqM) Glucose 98 (74-99) mg/dL Plasma Lactic Acid Milad (0.7-2.0) mmol/L Calcium 9.3 (8.4-10.2) mg/dL Total Bilirubin 0.9 (0.2-1.3) mg/dL AST 75 H (14-36) U/L ALT 58 H (4-34) U/L Alkaline Phosphatase 153 H (38-126) U/L Total Protein 7.6 (6.3-8.2) g/dL Albumin 4.5 (3.5-5.0) g/dL Amylase 65 (30-110) U/L Lipase 109 (23-300) U/L Urine Color Urine Appearance (Clear) Urine pH (5.0-8.0) Ur Specific [place] (1.001-1.035) Urine Protein (Negative) Urine Glucose (UA) (Negative) Urine Ketones (Negative) Urine Blood (Negative) Urine Nitrite (Negative) Urine Bilirubin (Negative) Urine Urobilinogen (<2.0) mg/dL Ur Leukocyte Esterase (Negative) Urine HCG, Qual (Not Detectd) 11/10/23 11/10/23 11/10/23 Range/Units 12:34 14:36 14:37 WBC (3.8-10.6) k/uL RBC (3.80-5.40) m/uL Hgb (11.4-16.0) gm/dL Hct (34.0-46.0) % MCV (80.0-100.0) fL MCH (25.0-35.0) pg MCHC (31.0-37.0) g/dL RDW (11.5-15.5) % Plt Count (150-450) k/uL MPV Neutrophils % % Lymphocytes % % Monocytes % % Eosinophils % % Basophils % % Neutrophils # (1.3-7.7) k/uL Lymphocytes # (1.0-4.8) k/uL Monocytes # (0-1.0) k/uL Eosinophils # (0-0.7) k/uL Basophils # (0-0.2) k/uL PT (10.0-12.5) sec INR (<1.2) APTT (22.0-30.0) sec Sodium (137-145) mmol/L Potassium (3.5-5.1) mmol/L Chloride (98-107) mmol/L Carbon Dioxide (22-30) mmol/L Anion Gap mmol/L BUN (7-17) mg/dL Creatinine (0.52-1.04) mg/dL Est GFR (CKD-EPI)AfAm (>60 ml/min/1.73 sqM) Est GFR (CKD-EPI)NonAf (>60 ml/min/1.73 sqM) Glucose (74-99) mg/dL Plasma Lactic Acid Milad 0.8 (0.7-2.0) mmol/L Calcium (8.4-10.2) mg/dL Total Bilirubin (0.2-1.3) mg/dL AST (14-36) U/L ALT (4-34) U/L Alkaline Phosphatase (38-126) U/L Total Protein (6.3-8.2) g/dL Albumin (3.5-5.0) g/dL Amylase (30-110) U/L Lipase (23-300) U/L Urine Color Colorless Urine Appearance Clear (Clear) Urine pH 6.5 (5.0-8.0) Ur Specific [place] 1.012 (1.001-1.035) Urine Protein Negative (Negative) Urine Glucose (UA) Negative (Negative) Urine Ketones Negative (Negative) Urine Blood Negative (Negative) Urine Nitrite Negative (Negative) Urine Bilirubin Negative (Negative) Urine Urobilinogen <2.0 (<2.0) mg/dL Ur Leukocyte Esterase Negative (Negative) Urine HCG, Qual Not Detected (Not Detectd) Disposition Clinical Impression: Cholelithiasis, Elevated LFTs Disposition: ADMITTED IP TO THIS [facility] Condition: Stable Is patient prescribed a controlled substance at d/c from ED?: No
[2023-11-10 12:57] LABS: Basophils % (A) 0 %; Eosinophils # (A) 0.2 k/uL (0-0.7); Eosinophils % (A) 2 %; HCT 43.3 % (34.0-46.0); HGB 14.4 gm/dL (11.4-16.0); Lymphocytes # (A) 1.1 k/uL (1.0-4.8); Lymphocytes % (A) 14 %; MCH 30.6 pg (25.0-35.0); MCHC 33.3 g/dL (31.0-37.0); MCV 91.9 fL (80.0-100.0); Mean Platelet Volume 8.8; Monocytes # (A) 0.3 k/uL (0-1.0); Monocytes % (A) 4 %; Neutrophils # (A) 6.3 k/uL (1.3-7.7); Neutrophils % (A) 78 %; Platelet Count 232 k/uL (150-450); RBC 4.72 m/uL (3.80-5.40); RDW 13.7 % (11.5-15.5)
[2023-11-10 13:02] LABS: ALT 58 U/L (4-34); AST 75 U/L (14-36); African American GFR (CKD) >90 (>60 ml/min/1.73 sqM); Albumin 4.5 g/dL (3.5-5.0); Alkaline Phosphatase 153 U/L (38-126); Amylase 65 U/L (30-110); Anion Gap 9 mmol/L; Blood Urea Nitrogen 22 mg/dL (7-17); Calcium 9.3 mg/dL (8.4-10.2); Carbon Dioxide 26 mmol/L (22-30); Chloride 107 mmol/L (98-107); Glucose 98 mg/dL (74-99); Lipase 109 U/L (23-300); Non-African American GFR(CKD) >90 (>60 ml/min/1.73 sqM); Potassium 3.8 mmol/L (3.5-5.1); Sodium 142 mmol/L (137-145); Total Bilirubin 0.9 mg/dL (0.2-1.3); Total Protein 7.6 g/dL (6.3-8.2)
[2023-11-10 13:09] LABS: INR 0.9 (<1.2)
--- NOTE | 2023-11-10 13:55 | US ---
EXAMINATION TYPE: US gallbladder DATE OF EXAM: 11/10/2023 COMPARISON: Recent US CLINICAL INDICATION: Female, 28 years old with history of RUQ pain; RUQ pain TECHNIQUE: Multiple sonographic images of the right upper quadrant are obtained. 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 Cholelithiasis. There is a positive Jorgensen's sign which has high correlation with acute cholecysti tis.
[2023-11-10] MEDS ORDERED: MORPHINE SULFATE 2 MG/ML SYRINGE IVP STA (14:08)
[2023-11-10 14:49] LABS: Appearance,Urine Clear (Clear); Bilirubin,Urine Negative (Negative); Blood,Urine Negative (Negative); Color,Urine Colorless; Glucose,Urine (UA) Negative (Negative); Ketones,Urine Negative (Negative); Leukocyte Esterase,Urine Negative (Negative); Nitrite,Urine Negative (Negative); PH, Urine 6.5 (5.0-8.0); Protein,Urine Negative (Negative); Specific Gravity,Urine 1.012 (1.001-1.035); Urobilinogen,Urine <2.0 mg/dL (<2.0)
[2023-11-10] MEDS ORDERED: NALOXONE 0.4 MG/ML 1 ML VIAL IV PRN (15:34)
[2023-11-10] MEDS ORDERED: KETOROLAC 15 MG/ML 1 ML VIAL IVP PRN (15:35)
[2023-11-10] MEDS ORDERED: ACETAMINOPHEN TAB 325 MG TAB PO PRN (15:35)
[2023-11-10] MEDS ORDERED: ONDANSETRON 4 MG/2 ML VIAL IVP PRN (15:35)
[2023-11-10] MEDS ORDERED: MORPHINE SULFATE 4 MG/ML SYRINGE IV PRN (15:35)
[2023-11-10] MEDS: SODIUM CHLORIDE 0.9% 1,000 ML IV SCH (20:13)
[2023-11-10] MEDS ORDERED: MIDAZOLAM 5 MG/0.1 ML MISCELLANE PRN (20:25)
[2023-11-10] MEDS ORDERED: ALBUTEROL NEBULIZED 2.5 MG/3 ML INHALATION PRN (20:25)
[2023-11-10] MEDS: busPIRone HCl 5 MG TAB PO SCH (20:39)
[2023-11-11] MEDS: SODIUM CHLORIDE 0.9% 1,000 ML IV SCH ×4 (03:43→23:21)
[2023-11-11] MEDS: busPIRone HCl 5 MG TAB PO SCH ×2 (07:16→19:56)
[2023-11-11] MEDS: FOLIC ACID 1 MG TAB PO SCH (07:18)
[2023-11-11] MEDS: ASCORBIC ACID 500 MG TAB PO SCH (07:18)
[2023-11-11] MEDS: PRENATAL VIT-IRON-FOLIC ACID 1 EACH TABLET PO SCH (07:18)
[2023-11-11] MEDS ORDERED: LACTATED RINGERS 1,000 ML IV ONE (08:43)
[2023-11-11] MEDS ORDERED: ONDANSETRON 4 MG/2 ML VIAL IVP ONE (08:49)
[2023-11-11] MEDS ORDERED: DEXAMETHASONE SOD PHOSPHATE 4 MG/ML 1 ML VIAL IVP ONE (09:14)
[2023-11-11] MEDS ORDERED: FAMOTIDINE 20 MG/2 ML VIAL IVP ONE (09:14)
[2023-11-11 09:16] LABS: Basophils % (A) 1 %; Eosinophils # (A) 0.1 k/uL (0-0.7); Eosinophils % (A) 3 %; HGB 12.6 gm/dL (11.4-16.0); Lymphocytes # (A) 1.6 k/uL (1.0-4.8); Lymphocytes % (A) 30 %; MCH 31.3 pg (25.0-35.0); MCV 91.9 fL (80.0-100.0); Mean Platelet Volume 8.9; Monocytes # (A) 0.3 k/uL (0-1.0); Monocytes % (A) 5 %; Neutrophils # (A) 3.2 k/uL (1.3-7.7); Neutrophils % (A) 60 %; Platelet Count 203 k/uL (150-450); RBC 4.03 m/uL (3.80-5.40); RDW 13.9 % (11.5-15.5); WBC 5.4 k/uL (3.8-10.6)
[2023-11-11 09:24] LABS: Glucose,Whole Blood 88 mg/dL (70-110)
[2023-11-11 09:30] LABS: Chloride 110 mmol/L (98-107)
[2023-11-11 09:33] LABS: ALT 112 U/L (4-34); AST 60 U/L (14-36); African American GFR (CKD) >90 (>60 ml/min/1.73 sqM); Albumin 3.5 g/dL (3.5-5.0); Albumin/Globulin Ratio 1.3; Alkaline Phosphatase 128 U/L (38-126); Anion Gap 6 mmol/L; Blood Urea Nitrogen 14 mg/dL (7-17); Calcium 8.2 mg/dL (8.4-10.2); Carbon Dioxide 23 mmol/L (22-30); Globulin 2.6 g/dL; Glucose 83 mg/dL (74-99); Non-African American GFR(CKD) >90 (>60 ml/min/1.73 sqM); Potassium 3.9 mmol/L (3.5-5.1); Sodium 139 mmol/L (137-145); Total Bilirubin 0.7 mg/dL (0.2-1.3); Total Protein 6.1 g/dL (6.3-8.2)
[2023-11-11] MEDS ORDERED: ROCURONIUM 10 MG/ML (5 ML VIAL) IV ONE (09:54)
[2023-11-11] MEDS ORDERED: KETOROLAC 15 MG/ML 1 ML VIAL ONE (09:54)
[2023-11-11] MEDS ORDERED: fentaNYL (PF) 50 MCG/ML 2 ML AMP ONE (09:54)
[2023-11-11] MEDS ORDERED: SUGAMMADEX SODIUM 200 MG/2 ML SDV IV ONE (09:54)
[2023-11-11] MEDS ORDERED: PROPOFOL 10 MG/ML 20 ML VIAL IV ONE (09:54)
[2023-11-11] MEDS ORDERED: GLYCOPYRROLATE 0.2 MG/ML 2 ML VIAL ONE (09:54)
[2023-11-11] MEDS ORDERED: LIDOCAINE 1% INJ 10MG/ML (20 ML MDV) ONE (09:54)
[2023-11-11] MEDS: LEVOFLOXACIN 500MG-D5W PMX 500 MG in DEXTROSE/WATER 1 100ML.BAG IVPB SCH (09:59)
[2023-11-11] MEDS: metroNIDAZOLE-NS PMX 500 MG in SALINE 1 100ML.BAG IVPB SCH ×3 (09:59→23:16)
[2023-11-11] MEDS ORDERED: BUPIVACAINE (PF) 0.25% 10 ML VIAL SQ ONE (10:12)
--- NOTE | 2023-11-11 10:45 | P.GSHP ---
History of Present Illness H&P Date: 11/11/23 CHIEF COMPLAINT: Abdominal pain HISTORY OF PRESENT ILLNESS: This is a 28-year-old female who presented with right upper quadrant abdominal pain that radiated to the shoulders. Symptoms started at 11 AM this morning. Patient has had similar symptoms about 2 weeks ago. Patient reports having nausea and vomiting. She was initially scheduled outpatient for November 18 for cholecystectomy. She is status post tubal ligation on November 05 at [facility]. She is currently breast-feeding. Gallbladder ultrasound shows evidence of cholelithiasis and positive Jorgensen sign and correlation with acute cholecystitis. PAST MEDICAL HISTORY: Asthma, Diabetes Mellitus, Seizure Disorder, Thyroid Disorder, cerebral palsy, gullian barre in 2010, multiple miscarriages, anemia, anxiety and bipolar PAST SURGICAL HISTORY: MEDICATIONS: See below ALLERGIES: See below SOCIAL HISTORY: No illicit drug use. REVIEW OF SYSTEMS: CONSTITUTIONAL: Denies fever or chills. HEENT: Denies blurred vision, vision changes, or eye pain. Denies hemoptysis CARDIOVASCULAR: Denies chest pain or pressure. RESPIRATORY: No shortness of breath. GASTROINTESTINAL: See HPI for pertinent findings HEMATOLOGIC: Denies bleeding disorders. GENITOURINARY: Denies any blood in urine or increased urinary frequency. SKIN: Denies pruitis. Denies rash. PHYSICAL EXAM: VITAL SIGNS: Reviewed GENERAL: Well-developed in no acute distress. ABDOMEN: Soft. Nondistended. Right upper quadrant tenderness with palpation NEUROLOGIC: Alert and oriented. Cranial nerves II through XII grossly intact. LABORATORY DATA: WBC 5.4 Hgb 12.6 platelets 203 Sodium 139 potassium 3.9 creatinine 0.71 Total bili 0.7 AST 75 down to 60 ALT 58 up to 112 alk phos 153 down to 128 Urinalysis negative for infection urine hCG not detected IMAGING: Gallbladder ultrasound shows cholelithiasis. There is a positive Jorgensen sign which has high correlation with acute cholecystitis ASSESSMENT: 1. Acute cholecystitis 2. 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 Signing provider agrees with the documented findings, assessment, and plan of care. Past Medical History Past Medical History: Asthma, Diabetes Mellitus, Seizure Disorder, Thyroid Disorder Additional Past Medical History / Comment(s): cerebral palsy, gullian barre in 2010, multiple miscarriages, anemia. History of Any Multi-Drug Resistant Organisms: None Reported Past Surgical History: No Surgical Hx Reported Additional Past Surgical History / Comment(s): D&C Past Anesthesia/Blood Transfusion Reactions: No Reported Reaction Additional Past Anesthesia/Blood Transfusion Reaction / Comment(s): FATHER- TAKES LONGER TO WAKE UP WITH ANESTHESIA". "takes longer to wake up" Past Psychological History: Anxiety, Bipolar Additional Psychological History / Comment(s): lives with children Smoking Status: Former smoker Past Alcohol Use History: None Reported Additional Past Alcohol Use History / Comment(s): started smoking at Age 15 and quit age 16 ONLY SMOKED 2 CIG PER DAY Past Drug Use History: None Reported - Past Family History Mother Family Medical History: Diabetes Mellitus, Hypertension, Seizure Disorder, Supraventricular Tachycardia (SVT) Additional Family Medical History / Comment(s): SVT Father History Unknown: Yes Medications and Allergies Home Medications Medication Instructions Recorded Confirmed Type busPIRone HCl [Buspar] 5 mg PO BID 01/15/22 11/10/23 History Albuterol Sulfate [Albuterol 2 puff INHALATION RT-Q4H PRN 05/07/23 11/10/23 History Sulfate Hfa] Ascorbic Acid [Vitamin C] 500 mg PO DAILY 05/07/23 11/10/23 History Folic Acid 1 mg PO DAILY 05/07/23 11/10/23 History Pnv,Calcium 72/Iron/Folic Acid 1 tab PO DAILY 05/07/23 11/10/23 History [Westab Plus Tablet] Ibuprofen [Motrin] 600 mg PO Q6H PRN 11/10/23 11/10/23 History Midazolam [Nayzilam] 5 mg NASAL DIRECTED PRN 11/10/23 11/10/23 History Allergies Allergy/AdvReac Type Severity Reaction Status Date / Time nut - unspecified Allergy Anaphylaxis Verified 11/10/23 16:18 peanut Allergy Anaphylaxis Verified 11/10/23 16:18 Penicillins Allergy Anaphylaxis Verified 11/10/23 16:18 Sulfa (Sulfonamide Allergy Rash/Hives Verified 11/10/23 16:18 Antibiotics) tree nut [Nut] Allergy Anaphylaxis Verified 11/10/23 16:18 diphenhydramine AdvReac Confusion Verified 11/10/23 16:18 Surgical - Exam Vital Signs Temp Pulse Resp BP Pulse Ox 97.9 F 69 16 121/78 95 11/10/23 11:47 11/10/23 11:47 11/10/23 11:47 11/10/23 11:47 11/10/23 11:47 Results - Labs 11/11/23 09:05 11/11/23 09:05 Abnormal Lab Results - Last 24 Hours (Table) 11/10/23 Range/Units 12:34 BUN 22 H (7-17) mg/dL AST 75 H (14-36) U/L ALT 58 H (4-34) U/L Alkaline Phosphatase 153 H (38-126) U/L Diabetes panel 11/10/23 Range/Units 12:34 Sodium 142 (137-145) mmol/L Potassium 3.8 (3.5-5.1) mmol/L Chloride 107 (98-107) mmol/L Carbon Dioxide 26 (22-30) mmol/L BUN 22 H (7-17) mg/dL Creatinine 0.73 (0.52-1.04) mg/dL Glucose 98 (74-99) mg/dL Calcium 9.3 (8.4-10.2) mg/dL AST 75 H (14-36) U/L ALT 58 H (4-34) U/L Alkaline Phosphatase 153 H (38-126) U/L Total Protein 7.6 (6.3-8.2) g/dL Albumin 4.5 (3.5-5.0) g/dL Calcium panel 11/10/23 Range/Units 12:34 Calcium 9.3 (8.4-10.2) mg/dL Albumin 4.5 (3.5-5.0) g/dL Pituitary panel 11/10/23 Range/Units 12:34 Sodium 142 (137-145) mmol/L Potassium 3.8 (3.5-5.1) mmol/L Chloride 107 (98-107) mmol/L Carbon Dioxide 26 (22-30) mmol/L BUN 22 H (7-17) mg/dL Creatinine 0.73 (0.52-1.04) mg/dL Glucose 98 (74-99) mg/dL Calcium 9.3 (8.4-10.2) mg/dL Adrenal panel 11/10/23 Range/Units 12:34 Sodium 142 (137-145) mmol/L Potassium 3.8 (3.5-5.1) mmol/L Chloride 107 (98-107) mmol/L Carbon Dioxide 26 (22-30) mmol/L BUN 22 H (7-17) mg/dL Creatinine 0.73 (0.52-1.04) mg/dL Glucose 98 (74-99) mg/dL Calcium 9.3 (8.4-10.2) mg/dL Total Bilirubin 0.9 (0.2-1.3) mg/dL AST 75 H (14-36) U/L ALT 58 H (4-34) U/L Alkaline Phosphatase 153 H (38-126) U/L Total Protein 7.6 (6.3-8.2) g/dL Albumin 4.5 (3.5-5.0) g/dL
[2023-11-11] MEDS ORDERED: HYDROmorphone 1 MG/ML 1 ML SYRINGE IVP PRN (10:48)
--- NOTE | 2023-11-11 10:48 | P.OP ---
Date of Procedure: 11/11/23 Preoperative Diagnosis: L cholecystitis Cholelithiasis Postoperative Diagnosis: Cholecystitis Cholelithiasis Procedure(s) Performed: Laparoscopic cholecystectomy Anesthesia: ANIBALA Surgeon: Dionte Marr Estimated Blood Loss (ml): 5 Pathology: other (Gallbladder) Condition: stable Disposition: PACU Description of Procedure: The patient's placed on the operative table in the supine position. The patient received general endotracheal anesthesia. His abdomen was prepped with sterile fashion. An infraumbilical skin incision was made. The Veress needles positioned into the peritoneal cavity. Position of the Veress needle was confirmed with a positive drop test. The abdomen was then insufflated. After adequate insufflation a 5 mm trochars placed. Cavity. Next the laparoscope placed. Cavity. A 8 mm robotic trocar was placed in the left mid abdomen. A a 8 mm robotic trochars placed in the right lateral position and then the right mid abdomen position. The patient was then placed in reverse Trendelenburg. Patient with was docked to the robot. There were adhesions to the dome of the gallbladder. These were lysed using the hook cautery. The gallbladder fundus was then grasped with a pro-grasp grasper. And then the gallbladder was retracted cephalad. There were adhesions along the body of the gallbladder. These were lysed with sharp dissection. The fundus of the gallbladder was then grasped in the lateral traction was placed in the fundus. And then using blunt and sharp dissection the cystic duct was identified. Using firing applied the cystic duct was identified. A critical view of safety was achieved. The cystic duct was seen entering the common bile duct the common hepatic duct was seen. The cystic duct had been completely dissected and then the cystic duct was clipped and divided. The cystic artery was then identified and then clipped and divided. The gallbladder was then removed from liver bed using left cautery. The gallbladder was placed in a 5 mm Endo Catch bag. The liver bed was hemostasis. There is no bleeding seen. The abdomen was irrigated. No bleeding was seen. The patient was then undocked from the robot. The gallbladder was extracted through the umbilical port site. The umbilical port site was then closed with 0 Ethibond suture. The trochars withdrawn. Skin was closed interrupted 3-0 Monocryl suture. Dermabond dressing applied. Patient top she will was sent to recovery room in stable condition.
[2023-11-11] MEDS ORDERED: HYDROmorphone 0.5 MG/0.5 ML SYRINGE IVP ONE (11:05)
[2023-11-11 11:22] LABS: Glucose,Whole Blood 102 mg/dL (70-110)
[2023-11-11] MEDS ORDERED: HYDROcodone/APAP 5-325MG 1 EACH TAB PO PRN (14:13)
--- NOTE | 2023-11-11 14:20 | P.DS ---
Providers Date of admission: 11/10/23 15:17 Expected date of discharge: 11/11/23 Attending physician: Dionte Marr Consults: 11/10/23 15:34 Consult Physician Routine Consulting Provider: Garland Lopez Consult Reason/Comments: medical management Do you want consulting provider notified?: Yes, Notify in am Primary care physician: Garland Lopez Hospital Course: Discharge diagnosis 1. Cholecystitis and cholelithiasis status post laparoscopic cholecystectomy Hospital course This is a 28-year-old female presented with right upper quadrant abdominal pain. Gallbladder ultrasound showed evidence of cholelithiasis with positive Jorgensen sign and in correlation with acute cholecystitis. Patient is status post laparoscopic cholecystectomy. Her pain is controlled. She is afebrile. Patient will be discharged later this evening as long as her pain is controlled and she is tolerating diet. Please refer to chart for any further details. Physician Webbing Inspector note has been reviewed by physician. Signing provider agrees with the documented findings, assessment, and plan of care. Patient Condition at Discharge: Stable Plan - Discharge Summary New Discharge Prescriptions: New HYDROcodone/APAP 5-325MG [[place] 5-325] 1 tab PO Q6HR PRN 3 Days #12 tab PRN Reason: Pain Ibuprofen [Motrin] 600 mg PO Q8HR PRN #30 tab PRN Reason: Pain Continue Albuterol Sulfate [Albuterol Sulfate Hfa] 2 puff INHALATION RT-Q4H PRN PRN Reason: Shortness Of Breath busPIRone HCl [Buspar] 5 mg PO BID Pnv,Calcium 72/Iron/Folic Acid [Westab Plus Tablet] 1 tab PO DAILY Folic Acid 1 mg PO DAILY Ascorbic Acid [Vitamin C] 500 mg PO DAILY Midazolam [Nayzilam] 5 mg NASAL DIRECTED PRN PRN Reason: Seizures Discontinued Ibuprofen [Motrin] 600 mg PO Q6H PRN PRN Reason: Pain Discharge Medication List busPIRone HCl [Buspar] 5 mg PO BID 01/15/22 [History] Albuterol Sulfate [Albuterol Sulfate Hfa] 2 puff INHALATION RT-Q4H PRN 05/07/23 [History] Ascorbic Acid [Vitamin C] 500 mg PO DAILY 05/07/23 [History] Folic Acid 1 mg PO DAILY 05/07/23 [History] Pnv,Calcium 72/Iron/Folic Acid [Westab Plus Tablet] 1 tab PO DAILY 05/07/23 [History] Midazolam [Nayzilam] 5 mg NASAL DIRECTED PRN 11/10/23 [History] HYDROcodone/APAP 5-325MG [[place] 5-325] 1 tab PO Q6HR PRN 3 Days #12 tab 11/11/23 [Rx] Ibuprofen [Motrin] 600 mg PO Q8HR PRN #30 tab 11/11/23 [Rx] Follow up Appointment(s)/Referral(s): Garland Lopez MD [Primary Care Provider] - 1-2 days Dionte Marr MD [STAFF PHYSICIAN] - 1 Week Activity/Diet/Wound Care/Special Instructions: No driving while taking [place] No lifting over 10 pounds Shower daily. No soaking or tub baths for 2 weeks Very light activity until you are reevaluated at your follow up appointment with your surgeon Discharge Disposition: HOME SELF-CARE
[2023-11-11] MEDS: IBUPROFEN 400 MG TAB PO PRN (15:50)
[2023-11-11] MEDS ORDERED: IPRATROPIUM-ALBUTEROL 3 ML NEB INHALATION PRN (19:35)
[2023-11-11 20:53] VITALS: RESP 16
--- NOTE | 2023-11-12 01:55 | CONS ---
CONSULTATION HISTORY OF PRESENT ILLNESS: A 28-year-old white female, came into the hospital for cholelithiasis. She had a gallbladder removed. Consult was put in. Restart her home medicines. She has no bleeding possibly go home soon and home medications have been restarted. Medications are stable. PHYSICAL EXAMINATION: VITAL SIGNS: Temperature 98.1, blood pressure is 130s over 70s to 80s, pulse 60s to 70s, respiratory rate 12 to 14. ASSESSMENT: Home medicines to be ordered. Status post cholecystectomy and Levaquin, Flagyl. BuSpar for anxiety. Pain control. Prognosis guarded. MMODL / IJN: [id number] /
[2023-11-12 07:20] LABS: Glucose,Whole Blood 102 mg/dL (70-110)
[2023-11-12 07:49] VITALS: BP 115/78; TEMP 97.9
[2023-11-12] MEDS: SODIUM CHLORIDE 0.9% 1,000 ML IV SCH (08:05)
[2023-11-12] MEDS: busPIRone HCl 5 MG TAB PO SCH (08:05)
[2023-11-12] MEDS: ASCORBIC ACID 500 MG TAB PO SCH (08:05)
[2023-11-12] MEDS: FOLIC ACID 1 MG TAB PO SCH (08:05)
[2023-11-12] MEDS: PRENATAL VIT-IRON-FOLIC ACID 1 EACH TABLET PO SCH (08:05)
[2023-11-12] MEDS: metroNIDAZOLE-NS PMX 500 MG in SALINE 1 100ML.BAG IVPB SCH (08:05)
[2023-11-12] MEDS: IBUPROFEN 400 MG TAB PO PRN (08:10)
[2023-11-12] MEDS: LEVOFLOXACIN 500MG-D5W PMX 500 MG in DEXTROSE/WATER 1 100ML.BAG IVPB SCH (09:49)
[2023-11-12 10:44] VITALS: PULSE 62
[2023-11-12 12:08] LABS: Glucose,Whole Blood 103 mg/dL (70-110)
== END 2023-11-12 12:55 | disposition home or self-care (01) ==
LOC: EC 11:44 → 5NMEDONC 15:17
PROVIDERS: ADMIT Surgery; ATTEND Surgery
DX: K80.12 Calculus of gallbladder with acute and chronic cholecystitis without obstruction (principal); G80.9 Cerebral palsy, unspecified; G61.0 Guillain-Barre syndrome; J45.909 Unspecified asthma, uncomplicated; E07.9 Disorder of thyroid, unspecified; E11.9 Type 2 diabetes mellitus without complications; G40.909 Epilepsy, unspecified, not intractable, without status epilepticus; F31.9 Bipolar disorder, unspecified; F41.9 Anxiety disorder, unspecified; Z11.52 Encounter for screening for COVID-19; Z79.899 Other long term (current) drug therapy; Z88.0 Allergy status to penicillin; Z88.2 Allergy status to sulfonamides; Z88.8 Allergy status to other drugs, medicaments and biological substances; Z91.018 Allergy to other foods; Z91.010 Allergy to peanuts; Z98.51 Tubal ligation status
CPT/HCPCS: 47562; S2900; 36415; 76705; 80053; 81003; 81025; 82150; 83605; 83690; 85025; 85610; 85730; 87635; 88304; 94640; 96374; 96375; 96376; 99285

== ENCOUNTER 2024-01-03 14:56 | Emergency (ER) | payer OTHER ==
--- NOTE | 2024-01-03 15:30 | ED ---
General Adult HPI - General Chief complaint: Fall Stated complaint: Fall-Dizziness/vision issues Time Seen by Provider: 01/03/24 15:24 Source: patient Mode of arrival: wheelchair - History of Present Illness Initial comments: Dictation was produced using [employer] dictation software. please excuse any grammatical, word or spelling errors. Chief Complaint: 28-year-old female with head pain History of Present Illness: Patient 28-year-old female at this morning she fell. She landed sideways and hurt her right arm and hit the right side of her head. She was seen at [address] [place] [address]. They did not do a CT scan of her brain. When she got home she started to have some episodes of nausea and dizziness. The ROS documented in this emergency department record has been reviewed and confirmed by me. Those systems with pertinent positive or negative responses have been documented in the HPI. All other systems are other negative and/or noncontributory. - Related Data Home Medications Medication Instructions Recorded Confirmed busPIRone HCl [Buspar] 5 mg PO BID 01/15/22 11/10/23 Albuterol Sulfate [Albuterol 2 puff INHALATION RT-Q4H PRN 05/07/23 11/10/23 Sulfate Hfa] Ascorbic Acid [Vitamin C] 500 mg PO DAILY 05/07/23 11/10/23 Folic Acid 1 mg PO DAILY 05/07/23 11/10/23 Pnv,Calcium 72/Iron/Folic Acid 1 tab PO DAILY 05/07/23 11/10/23 [Westab Plus Tablet] Midazolam [Nayzilam] 5 mg NASAL DIRECTED PRN 11/10/23 11/10/23 Previous Rx's Medication Instructions Recorded HYDROcodone/APAP 5-325MG [Mobile 1 tab PO Q6HR PRN 3 Days #12 tab 11/11/23 5-325] Ibuprofen [Motrin] 600 mg PO Q8HR PRN #30 tab 11/11/23 Docusate [Colace] 100 mg PO BID #30 capsule 11/12/23 Allergies Allergy/AdvReac Type Severity Reaction Status Date / Time nut - unspecified Allergy Anaphylaxis Verified 01/03/24 15:13 peanut Allergy Anaphylaxis Verified 01/03/24 15:13 Penicillins Allergy Anaphylaxis Verified 01/03/24 15:13 Sulfa (Sulfonamide Allergy Rash/Hives Verified 01/03/24 15:13 Antibiotics) tree nut [Nut] Allergy Anaphylaxis Verified 01/03/24 15:13 diphenhydramine AdvReac Confusion Verified 01/03/24 15:13 Review of Systems ROS Statement: Those systems with pertinent positive or pertinent negative responses have been documented in the HPI. ROS Other: All systems not noted in ROS Statement are negative. Past Medical History Past Medical History: Asthma, Diabetes Mellitus, Seizure Disorder, Thyroid Disorder Additional Past Medical History / Comment(s): cerebral palsy, gullian barre in 2010, multiple miscarriages, anemia. History of Any Multi-Drug Resistant Organisms: None Reported Past Surgical History: No Surgical Hx Reported Additional Past Surgical History / Comment(s): D&C Past Anesthesia/Blood Transfusion Reactions: No Reported Reaction Additional Past Anesthesia/Blood Transfusion Reaction / Comment(s): FATHER- TAKES LONGER TO WAKE UP WITH ANESTHESIA". "takes longer to wake up" Past Psychological History: Anxiety, Bipolar Smoking Status: Former smoker Past Alcohol Use History: None Reported Past Drug Use History: None Reported - Past Family History Mother Family Medical History: Diabetes Mellitus, Hypertension, Seizure Disorder, Supraventricular Tachycardia (SVT) Additional Family Medical History / Comment(s): SVT Father History Unknown: Yes General Exam - General Exam Comments Initial Comments: PHYSICAL EXAM: General Impression: Alert and oriented x3, not in acute distress HEENT: Normocephalic atraumatic, extra-ocular movements intact, pupils equal and reactive to light bilaterally, dry mucous membranes Cardiovascular: Heart regular rate and rhythm Chest: Able to complete full sentences, no retractions, no tachypnea Abdomen: abdomen soft, non-tender, non-distended, no organomegaly Musculoskeletal: Pulses present and equal in all extremities, no peripheral edema Motor: no focal deficits noted Neurological: CN II-XII grossly intact, no focal motor or sensory deficits noted Skin: Intact with no visualized rashes Psych: Normal affect and mood Course Vital Signs 01/03/24 01/03/24 15:08 15:13 Temperature 97.9 F Pulse Rate 81 68 Respiratory 18 16 Rate Blood Pressure 126/80 120/60 O2 Sat by Pulse 97 98 Oximetry Medical Decision Making - Medical Decision Making Was pt. sent in by a medical professional or institution (, PA, COMMUNITY DEVELOPMENT OFFICER, urgent care, hospital, or [place] health care facility...) When possible be specific @ -No Did you speak to anyone other than the patient for history (EMS, parent, family, police, friend...)? What history was obtained from this source @ -No Did you review nursing and triage notes (agree or disagree)? Why? @ -I reviewed and agree with nursing and triage notes Were old charts reviewed (outside hosp., previous admission, EMS record, old EKG, old radiological studies, urgent care reports/EKG's, [place] health care facility records)? Report findings @ -No old charts were reviewed Differential Diagnosis (chest pain, altered mental status, abdominal pain women, abdominal pain men, vaginal bleeding, musculoskeletal, weakness, fever, dyspnea, syncope, headache, dizziness, GI bleed, back pain, seizure, CVA, palpatations, mental health)? @ -Differential Dizziness: Benign paroxysmal positional Vertigo, Menieres disease, otitis media, acoustic neuroma, vertebrobasilar insufficiency, cerebellar stroke, encephalitis, hypovolemic, arrhythmia, coronary artery syndrome, anemia, this is not meant to be an all-inclusive list EKG interpreted by me (3pts min.). @ -None done X-rays interpreted by me (1pt min.). @ -None done CT interpreted by me (1pt min.). @ -CT scan the brain and C-spine shows no acute processes U/S interpreted by me (1pt. min.). @ -None done What testing was considered but not performed or refused? (CT, X-rays, U/S, labs)? Why? @ -None What meds were considered but not given or refused? Why? @ -None Did you discuss the management of the patient with other professionals (professionals i.e. , PA, COMMUNITY DEVELOPMENT OFFICER, lab, RT, psych nurse, social media intern, family lawyer, teacher, bank compliance officer, case managers)? Give summary @ -No Was smoking cessation discussed for >3mins.? @ -No Was critical care preformed (if so, how long)? @ -No Were there social determinants of health that impacted care today? How? (Homelessness, low income, unemployed, alcoholism, drug addiction, transportation, low edu. Level, literacy, decrease access to med. care, retirement, rehab)? @ -No Was there de-escalation of care discussed even if they declined (Discuss DNR or withdrawal of care, Hospice)? DNR status @ -No What co-morbidities impacted this encounter? (DM, HTN, Smoking, COPD, CAD, Cancer, CVA, ARF, Chemo, Hep., AIDS, mental health diagnosis, sleep apnea, morbid obesity)? @ -None Was patient admitted / discharged? Hospital course, mention meds given and route, prescriptions, significant lab abnormalities, going to OR and other pertinent info. @ -28-year-old female presents to the emergency department concussion. Vital signs stable. CT imaging is negative. Patient discharged advised follow-up with primary care doctor given starter pack for Zofran. Patient told to avoid any exertional activity. Undiagnosed new problem with uncertain prognosis? @ -No Drug Therapy requiring intensive monitoring for toxicity (Heparin, Nitro, Insulin, Cardizem)? @ -No Were any procedures done? @ -No Diagnosis/symptom? Acute, or Chronic, or Acute on Chronic? Uncomplicated (without systemic symptoms) or Complicated (systemic symptoms)? @ -Concussion Side effects of treatment? @ -No Exacerbation, Progression, or Severe Exacerbation? @ -No Poses a threat to life or bodily function? How? (Chest pain, USA, MS, pneumonia, PE, COPD, DKA, ARF, appy, cholecystitis, CVA, Diverticulitis, Homicidal, Suicidal, threat to staff... and all critical care pts) @ -No Disposition Clinical Impression: Concussion Disposition: HOME SELF-CARE Condition: Good Instructions (If sedation given, give patient instructions): Concussion (ED) Is patient prescribed a controlled substance at d/c from ED?: No Referrals: Garland Lopez MD [Primary Care Provider] - 1-2 days Time of Disposition: 16:30
[2024-01-03 16:06] VITALS: BP 120/60; PULSE 68; RESP 16; TEMP 97.9
--- NOTE | 2024-01-03 16:24 | CT ---
EXAMINATION TYPE: CT brain cspine wo con CT DLP: 1460 mGycm, Automated exposure control for dose reduction was used. DATE OF EXAM: 01/03/2024 3:52 PM COMPARISON: 09/20/2017. CLINICAL INDICATION:Female, 28 years old with history of fall; fall, c/o dizziness and headache TECHNIQUE: Brain: Multiple axial CT images of the brain were obtained without IV contrast. Cspine: Axial CT images from the skull base to the inferior aspect of T2 we obtained without intraven ous contrast. Coronal and sagittal reformatted images were also reviewed. FINDINGS: Brain: Extra-axial spaces: No abnormal extra-axial fluid collections. Ventricular system: Within normal limits Cerebral parenchyma: No acute intraparenchymal hemorrhage or mass effect. The aguila-white junction is well differentiated. Cerebellum: Unremarkable. Mass effect: No evidence of midline shift. Intracranial vasculature: unremarkable Soft tissues: Normal. Calvarium/osseous structures: No depressed skull fracture. Paranasal sinuses and mastoid air cells: Mild scattered mucosal thickening and or secretions. Visualized orbits: Orbital contents are intact. Cervical spine: Fracture: None. Osseous structures: Unremarkable Vertebral alignment: Within normal limits. Spinal canal/Neural Foramina: No evidence of significant spinal canal narrowing. No evidence for sign ificant neural foraminal stenosis. Neck soft tissues: Prevertebral soft tissues are within normal limits. Other: The airway is patent. The lung apices are clear. IMPRESSION: 1. No acute intracranial process. 2. No evidence of cervical spine fracture.
[2024-01-03] MEDS: ONDANSETRON 4 MG ODT STARTER PACK 2 TAB BTL PO STA (16:38)
== END 2024-01-03 16:42 | disposition home or self-care (01) ==
LOC: EC 14:56
DX: S06.0X0A Concussion without loss of consciousness, initial encounter (principal); Z87.891 Personal history of nicotine dependence; Z88.2 Allergy status to sulfonamides; Z88.0 Allergy status to penicillin; Z88.8 Allergy status to other drugs, medicaments and biological substances; Z91.010 Allergy to peanuts; W18.09XA Striking against other object with subsequent fall, initial encounter
CPT/HCPCS: 72125; 70450; 99284; S0119

== ENCOUNTER 2024-01-22 17:51 | Emergency (ER) | payer OTHER ==
[2024-01-22] MEDS: SODIUM CHLORIDE 0.9% 1,000 ML IV STA (18:31)
[2024-01-22 18:32] VITALS: RESP 18; TEMP 97.6
--- NOTE | 2024-01-22 18:33 | ED ---
Dizziness HPI - General Chief Complaint: Dizziness Stated Complaint: Dizziness,nausea Time Seen by Provider: 01/22/24 18:29 Source: patient, RN notes reviewed Mode of arrival: ambulatory Limitations: no limitations - History of Present Illness Initial Comments: Patient is a 28 year old female presenting to the ER with a chief complaint of nausea and dizziness. She states she had a fall and recently underwent an MRI of her brain on 01-09-2024 and was found to have "water on the brain". She states she has been worked up outpatient for this. She states last night she felt fine and woke up this morning and felt extremely nauseous and dizzy. She also reports a posterior headache with radiation down her spine. She denies any double blurry vision, weakness, paresthesias. She also is reporting nausea, vomiting and diarrhea. She has tried taking Zofran as prescribed without relief. She states she has not been able to keep anything down. She does report congestion since Saturday. Denies any known fevers, chest pain, shortness of breath, abdominal pain, constipation, urinary complaints, peripheral edema. - Related Data Home Medications Medication Instructions Recorded Confirmed busPIRone HCl [Buspar] 5 mg PO BID 01/15/22 11/10/23 Albuterol Sulfate [Albuterol 2 puff INHALATION RT-Q4H PRN 05/07/23 11/10/23 Sulfate Hfa] Ascorbic Acid [Vitamin C] 500 mg PO DAILY 05/07/23 11/10/23 Folic Acid 1 mg PO DAILY 05/07/23 11/10/23 Pnv,Calcium 72/Iron/Folic Acid 1 tab PO DAILY 05/07/23 11/10/23 [[place] Plus Tablet] Midazolam [Nayzilam] 5 mg NASAL DIRECTED PRN 11/10/23 11/10/23 Previous Rx's Medication Instructions Recorded HYDROcodone/APAP 5-325MG [[place] 1 tab PO Q6HR PRN 3 Days #12 tab 11/11/23 5-325] Ibuprofen [Motrin] 600 mg PO Q8HR PRN #30 tab 11/11/23 Docusate [Colace] 100 mg PO BID #30 capsule 11/12/23 Allergies Allergy/AdvReac Type Severity Reaction Status Date / Time nut - unspecified Allergy Anaphylaxis Verified 01/22/24 17:58 peanut Allergy Anaphylaxis Verified 01/22/24 17:58 Penicillins Allergy Anaphylaxis Verified 01/22/24 17:58 Sulfa (Sulfonamide Allergy Rash/Hives Verified 01/22/24 17:58 Antibiotics) tree nut [Nut] Allergy Anaphylaxis Verified 01/22/24 17:58 diphenhydramine AdvReac Confusion Verified 01/22/24 17:58 Review of Systems ROS Statement: Those systems with pertinent positive or pertinent negative responses have been documented in the HPI. ROS Other: All systems not noted in ROS Statement are negative. Past Medical History Past Medical History: Asthma, Diabetes Mellitus, Seizure Disorder, Thyroid Disorder Additional Past Medical History / Comment(s): cerebral palsy, gullian barre in 2011, multiple miscarriages, anemia. History of Any Multi-Drug Resistant Organisms: None Reported Past Surgical History: No Surgical Hx Reported Additional Past Surgical History / Comment(s): D&C Past Anesthesia/Blood Transfusion Reactions: No Reported Reaction Additional Past Anesthesia/Blood Transfusion Reaction / Comment(s): FATHER- TAKES LONGER TO WAKE UP WITH ANESTHESIA". "takes longer to wake up" Past Psychological History: Anxiety, Bipolar Smoking Status: Former smoker Past Alcohol Use History: None Reported Past Drug Use History: None Reported - Past Family History Mother Family Medical History: Diabetes Mellitus, Hypertension, Seizure Disorder, Supraventricular Tachycardia (SVT) Additional Family Medical History / Comment(s): SVT Father History Unknown: Yes General Exam Limitations: no limitations General appearance: alert, in no apparent distress Head exam: Present: atraumatic, normocephalic, normal inspection Eye exam: Present: normal appearance, PERRL, EOMI. Absent: scleral icterus, conjunctival injection, periorbital swelling ENT exam: Present: normal exam, normal oropharynx, mucous membranes moist Neck exam: Present: normal inspection. Absent: tenderness, meningismus, lymphadenopathy Respiratory exam: Present: normal lung sounds bilaterally. Absent: respiratory distress, wheezes, rales, rhonchi, stridor Cardiovascular Exam: Present: regular rate, normal rhythm, normal heart sounds. Absent: systolic murmur, diastolic murmur, rubs, gallop, clicks GI/Abdominal exam: Present: soft, normal bowel sounds. Absent: distended, tenderness, guarding, rebound, rigid Extremities exam: Present: normal inspection, full ROM, normal capillary refill. Absent: tenderness, pedal edema, joint swelling, calf tenderness Neurological exam: Present: alert, oriented X3, CN II-XII intact Psychiatric exam: Present: normal affect, normal mood Skin exam: Present: warm, dry, intact, normal color. Absent: rash Course Vital Signs 01/22/24 01/22/24 17:54 21:25 Temperature 97.6 F Pulse Rate 83 75 Respiratory 18 18 Rate Blood Pressure 138/83 132/83 O2 Sat by Pulse 98 98 Oximetry - Reevaluation(s) Reevaluation #1: 01/22/24 20:24 Patient reevaluated. Patient states her symptoms have greatly improved and she would like to be discharged. Medical Decision Making - Medical Decision Making Was pt. sent in by a medical professional or institution (, PA, NUCLEAR REACTOR ENGINEER, urgent ca re, hospital, or care home...) When possible be specific @ -No Did you speak to anyone other than the patient for history (EMS, parent, family, police, friend...)? What history was obtained from this source @ -No Did you review nursing and triage notes (agree or disagree)? Why? @ -I reviewed and agree with nursing and triage notes Were old charts reviewed (outside hosp., previous admission, EMS record, old EKG, old radiological studies, urgent care reports/EKG's, care home records)? Report findings @ -No old charts were reviewed Differential Diagnosis (chest pain, altered mental status, abdominal pain women, abdominal pain men, vaginal bleeding, weakness, fever, dyspnea, syncope, headache, dizziness, GI bleed, back pain, seizure, CVA, palpatations, mental health, musculoskeletal)? @ -Differential Dizziness:Benign paroxysmal positional Vertigo, Menieres disease, otitis media, acoustic neuroma, vertebrobasilar insufficiency, cerebellar stroke, encephalitis, hypovolemic, arrhythmia, coronary artery syndrome, anemia, this is not meant to be an all-inclusive list EKG interpreted by me (3pts min.). @ -As above X-rays interpreted by me (1pt min.). @ -Chest x-ray interpreted by me negative for acute cardiopulmonary process. CT interpreted by me (1pt min.). @ -None done U/S interpreted by me (1pt. min.). @ -None done What testing was considered but not performed or refused? (CT, X-rays, U/S, labs)? Why? @ -None What meds were considered but not given or refused? Why? @ -Zofran prescription offered patient refused stating she had some at home. Did you discuss the management of the patient with other professionals (professionals i.e. , PA, NUCLEAR REACTOR ENGINEER, lab, RT, psych nurse, health care social worker, director prison, teacher, seismology technical officer, insurance case manager)? Give summary @ -No Was smoking cessation discussed for >3mins.? @ -No Was critical care preformed (if so, how long)? @ -No Were there social determinants of health that impacted care today? How? (Homelessness, low income, unemployed, alcoholism, drug addiction, transportation, low edu. Level, literacy, decrease access to med. care, halfway, rehab)? @ -No Was there de-escalation of care discussed even if they declined (Discuss DNR or withdrawal of care, Hospice)? DNR status @ -No What co-morbidities impacted this encounter? (DM, HTN, Smoking, COPD, CAD, Cancer, CVA, ARF, Chemo, Hep., AIDS, mental health diagnosis, sleep apnea, morbid obesity)? @ -Hydrocephalus Was patient admitted / discharged? Hospital course, mention meds given and route, prescriptions, significant lab abnormalities, going to OR and other pertinent info. @ -Discharge. Patient is a 28-year-old female presenting to the ER with a chief complaint of nausea and dizziness. History and physical exam completed. Vitals stable. Patient no signs of acute distress and nontoxic-appearing. No acute neurological findings on exam. Labs obtained unremarkable. Urine without signs of infection. Flu, RSV, COVID-negative. Chest x-ray negative for acute cardiopulmonary process. EKG showing sinus rhythm with T wave inversion in anterior leads. Patient received IV fluids, Zofran and Toradol with improvement of symptoms in the ER. Upon reevaluation, patient sleeping in exam room in no signs of acute distress. Results discussed with patient, all questions answered. I advised close follow-up with PCP. Return parameters discussed. Patient discharged stable condition with follow-up to PCP. Patient verbally expressed understanding and agreement with care plan. Case discussed with ED attending, Dr. Solis. Undiagnosed new problem with uncertain prognosis? @ -No Drug Therapy requiring intensive monitoring for toxicity (Heparin, Nitro, Insulin, Cardizem)? @ -No Were any procedures done? @ -No Diagnosis/symptom? @ -Nausea and vomiting/dizziness Acute, or Chronic, or Acute on Chronic? @ -Acute Uncomplicated (without systemic symptoms) or Complicated (systemic symptoms)? @ -Uncomplicated Side effects of treatment? @ -No Exacerbation, Progression, or Severe Exacerbation? @ -No Poses a threat to life or bodily function? How? (Chest pain, [place], [place], pneumonia, PE, COPD, DKA, ARF, appy, cholecystitis, CVA, Diverticulitis, Homicidal, Suicidal, threat to staff... and all critical care pts) @ -No - Lab Data Result diagrams: 01/22/24 18:38 01/22/24 18:38 Lab Results 01/22/24 01/22/24 01/22/24 Range/Units 18:38 18:38 18:38 WBC 7.6 (3.8-10.6) k/uL RBC 4.74 (3.80-5.40) m/uL Hgb 14.8 (11.4-16.0) gm/dL Hct 44.6 (34.0-46.0) % MCV 94.1 (80.0-100.0) fL MCH 31.1 (25.0-35.0) pg MCHC 33.1 (31.0-37.0) g/dL RDW 12.3 (11.5-15.5) % Plt Count 233 (150-450) k/uL MPV 9.2 Neutrophils % 77 % Lymphocytes % 16 % Monocytes % 5 % Eosinophils % 1 % Basophils % 0 % Neutrophils # 5.8 (1.3-7.7) k/uL Lymphocytes # 1.2 (1.0-4.8) k/uL Monocytes # 0.4 (0-1.0) k/uL Eosinophils # 0.0 (0-0.7) k/uL Basophils # 0.0 (0-0.2) k/uL Sodium 139 (137-145) mmol/L Potassium 3.9 (3.5-5.1) mmol/L Chloride 105 (98-107) mmol/L Carbon Dioxide 25 (22-30) mmol/L Anion Gap 9 mmol/L BUN 14 (7-17) mg/dL Creatinine 0.72 (0.52-1.04) mg/dL Est GFR (CKD-EPI)AfAm >90 (>60 ml/min/1.73 sqM) Est GFR (CKD-EPI)NonAf >90 (>60 ml/min/1.73 sqM) Glucose 92 (74-99) mg/dL Plasma Lactic Acid Milad 0.6 L (0.7-2.0) mmol/L Calcium 9.0 (8.4-10.2) mg/dL Total Bilirubin 0.4 (0.2-1.3) mg/dL AST 23 (14-36) U/L ALT 17 (4-34) U/L Alkaline Phosphatase 102 (38-126) U/L Total Protein 6.9 (6.3-8.2) g/dL Albumin 4.3 (3.5-5.0) g/dL Amylase 68 (30-110) U/L Lipase 86 (23-300) U/L Urine Color Urine Appearance (Clear) Urine pH (5.0-8.0) Ur Specific Cle[place] (1.001-1.035) Urine Protein (Negative) Urine Glucose (UA) (Negative) Urine Ketones (Negative) Urine Blood (Negative) Urine Nitrite (Negative) Urine Bilirubin (Negative) Urine Urobilinogen (<2.0) mg/dL Ur Leukocyte Esterase (Negative) Urine WBC (0-5) /hpf Ur Squamous Epith Cells (0-4) /hpf Urine Mucus (None) /hpf Urine HCG, Qual (Not Detectd) Influenza Type A (PCR) (Not Detectd) Influenza Type B (PCR) (Not Detectd) RSV (PCR) (Not Detectd) SARS-CoV-2 (PCR) (Not Detectd) 01/22/24 01/22/24 01/22/24 Range/Units 18:38 21:00 21:00 WBC (3.8-10.6) k/uL RBC (3.80-5.40) m/uL Hgb (11.4-16.0) gm/dL Hct (34.0-46.0) % MCV (80.0-100.0) fL MCH (25.0-35.0) pg MCHC (31.0-37.0) g/dL RDW (11.5-15.5) % Plt Count (150-450) k/uL MPV Neutrophils % % Lymphocytes % % Monocytes % % Eosinophils % % Basophils % % Neutrophils # (1.3-7.7) k/uL Lymphocytes # (1.0-4.8) k/uL Monocytes # (0-1.0) k/uL Eosinophils # (0-0.7) k/uL Basophils # (0-0.2) k/uL Sodium (137-145) mmol/L Potassium (3.5-5.1) mmol/L Chloride (98-107) mmol/L Carbon Dioxide (22-30) mmol/L Anion Gap mmol/L BUN (7-17) mg/dL Creatinine (0.52-1.04) mg/dL Est GFR (CKD-EPI)AfAm (>60 ml/min/1.73 sqM) Est GFR (CKD-EPI)NonAf (>60 ml/min/1.73 sqM) Glucose (74-99) mg/dL Plasma Lactic Acid Milad (0.7-2.0) mmol/L Calcium (8.4-10.2) mg/dL Total Bilirubin (0.2-1.3) mg/dL AST (14-36) U/L ALT (4-34) U/L Alkaline Phosphatase (38-126) U/L Total Protein (6.3-8.2) g/dL Albumin (3.5-5.0) g/dL Amylase (30-110) U/L Lipase (23-300) U/L Urine Color Colorless Urine Appearance Clear (Clear) Urine pH 6.0 (5.0-8.0) Ur Specific [place] 1.016 (1.001-1.035) Urine Protein Negative (Negative) Urine Glucose (UA) Negative (Negative) Urine Ketones Negative (Negative) Urine Blood Negative (Negative) Urine Nitrite Negative (Negative) Urine Bilirubin Negative (Negative) Urine Urobilinogen <2.0 (<2.0) mg/dL Ur Leukocyte Esterase Small H (Negative) Urine WBC 2 (0-5) /hpf Ur Squamous Epith Cells 3 (0-4) /hpf Urine Mucus Rare H (None) /hpf Urine HCG, Qual Not Detected (Not Detectd) Influenza Type A (PCR) Not Detected (Not Detectd) Influenza Type B (PCR) Not Detected (Not Detectd) RSV (PCR) Not Detected (Not Detectd) SARS-CoV-2 (PCR) Not Detected (Not Detectd) - EKG Data -: EKG Interpreted by Me EKG Comments: EKG taken at 18: 46 showing a sinus rhythm with inverted T waves in anterior l donavan. Ventricular rate 73, OH interval 187, QRS duration 85, QT/QTc 408/434. - Radiology Data Radiology results: report reviewed, image reviewed Disposition Clinical Impression: Nausea & vomiting, Dizziness Disposition: HOME SELF-CARE Condition: Stable Instructions (If sedation given, give patient instructions): Dizziness (ED) Additional Instructions: Follow-up as scheduled with specialist. You may take Zofran for nausea. Return to the ER for any new or worsening concerns. Is patient prescribed a controlled substance at d/c from ED?: No Referrals: Garland Lopez MD [Primary Care Provider] - 1-2 days Time of Disposition: 21:36
[2024-01-22] MEDS: KETOROLAC 15 MG/ML 1 ML VIAL IVP STA (18:34)
[2024-01-22] MEDS: ONDANSETRON 4 MG/2 ML VIAL IVP STA (18:35)
[2024-01-22 19:05] LABS: Basophils % (A) 0 %; Eosinophils % (A) 1 %; HCT 44.6 % (34.0-46.0); HGB 14.8 gm/dL (11.4-16.0); Lymphocytes # (A) 1.2 k/uL (1.0-4.8); Lymphocytes % (A) 16 %; MCH 31.1 pg (25.0-35.0); MCHC 33.1 g/dL (31.0-37.0); MCV 94.1 fL (80.0-100.0); Mean Platelet Volume 9.2; Monocytes # (A) 0.4 k/uL (0-1.0); Monocytes % (A) 5 %; Neutrophils # (A) 5.8 k/uL (1.3-7.7); Neutrophils % (A) 77 %; Platelet Count 233 k/uL (150-450); RBC 4.74 m/uL (3.80-5.40); RDW 12.3 % (11.5-15.5); WBC 7.6 k/uL (3.8-10.6)
[2024-01-22 19:06] LABS: ALT 17 U/L (4-34); AST 23 U/L (14-36); African American GFR (CKD) >90 (>60 ml/min/1.73 sqM); Albumin 4.3 g/dL (3.5-5.0); Alkaline Phosphatase 102 U/L (38-126); Amylase 68 U/L (30-110); Anion Gap 9 mmol/L; Blood Urea Nitrogen 14 mg/dL (7-17); Carbon Dioxide 25 mmol/L (22-30); Chloride 105 mmol/L (98-107); Glucose 92 mg/dL (74-99); Lipase 86 U/L (23-300); Non-African American GFR(CKD) >90 (>60 ml/min/1.73 sqM); Potassium 3.9 mmol/L (3.5-5.1); Sodium 139 mmol/L (137-145); Total Bilirubin 0.4 mg/dL (0.2-1.3); Total Protein 6.9 g/dL (6.3-8.2)
--- NOTE | 2024-01-22 19:40 | XR ---
EXAMINATION TYPE: XR chest 1V portable DATE OF EXAM: 01/22/2024 7:33 PM CLINICAL INDICATION:Female, 28 years old with history of dizziness; [facility] COMPARISON: Chest radiographs from 02/21/2023 TECHNIQUE: XR chest 1V portable Frontal view of the chest. FINDINGS: Lungs/Pleura: There is no evidence of pleural effusion, focal consolidation, or pneumothorax. Pulmonary vascularity: Unremarkable. Heart/mediastinum: Cardiomediastinal silhouette is unremarkable. Musculoskeletal: No acute osseous pathology. IMPRESSION: No acute cardiopulmonary disease/process.
[2024-01-22 21:30] LABS: Appearance,Urine Clear (Clear); Bilirubin,Urine Negative (Negative); Blood,Urine Negative (Negative); Color,Urine Colorless; Glucose,Urine (UA) Negative (Negative); Ketones,Urine Negative (Negative); Leukocyte Esterase,Urine Small (Negative); Mucus,Urine Rare /hpf; Nitrite,Urine Negative (Negative); Protein,Urine Negative (Negative); Specific Gravity,Urine 1.016 (1.001-1.035); Squamous Epithelial Cell,Urine 3 /hpf (0-4); Urobilinogen,Urine <2.0 mg/dL (<2.0); WBC,Urine 2 /hpf (0-5)
[2024-01-22 21:33] VITALS: BP 132/83; PULSE 75
== END 2024-01-22 21:40 | disposition home or self-care (01) ==
LOC: EC 17:51
DX: R42 Dizziness and giddiness (principal); R11.2 Nausea with vomiting, unspecified; G91.9 Hydrocephalus, unspecified; Z11.52 Encounter for screening for COVID-19; Z87.891 Personal history of nicotine dependence; Z91.010 Allergy to peanuts; Z88.0 Allergy status to penicillin; Z88.2 Allergy status to sulfonamides; Z91.018 Allergy to other foods; Z88.8 Allergy status to other drugs, medicaments and biological substances
CPT/HCPCS: 36415; 93005; 80053; 82150; 83605; 83690; 85025; 81001; 81025; 87636; 71045; 99284; 96374; 96375; 96361; J2405; J1885

== ENCOUNTER 2024-05-10 15:26 | Emergency (ER) | payer OTHER ==
[2024-05-10 15:36] VITALS: RESP 18
--- NOTE | 2024-05-10 16:02 | XR ---
EXAMINATION TYPE: XR knee complete LT DATE OF EXAM: 05/10/2024 3:47 PM CLINICAL INDICATION:Female, 28 years old with history of pain; [facility] COMPARISON: None. TECHNIQUE: Frontal lateral and oblique views of the knee. Findings/impression: Acute fracture the patella with 13 mm distraction. Associated soft tissue swelli ng also present.
--- NOTE | 2024-05-10 16:57 | ED ---
Lower Extremity Injury HPI - General Chief Complaint: Extremity Injury, Lower Stated Complaint: Knee pain Time Seen by Provider: 05/10/24 15:40 Source: patient, EMS, RN notes reviewed Mode of arrival: EMS Limitations: no limitations - History of Present Illness Initial Comments: Is a 28-year-old female with no significant past medical history who presents emergency department via EMS for chief complaint of knee pain. Patient states that she was ice-skating this afternoon when she fell landing on her left knee. Patient denies hitting her head or loss of consciousness at time of fall. Currently patient states the pain is localized over the anterior knee. She denies paresthesias to the left lower extremity. Patient states that she has pain with flexion and pain with bearing weight. No other acute complaints at this time. - Related Data Home Medications Medication Instructions Recorded Confirmed busPIRone HCl [Buspar] 5 mg PO BID 01/15/22 11/10/23 Albuterol Sulfate [Albuterol 2 puff INHALATION RT-Q4H PRN 05/07/23 11/10/23 Sulfate Hfa] Ascorbic Acid [Vitamin C] 500 mg PO DAILY 05/07/23 11/10/23 Folic Acid 1 mg PO DAILY 05/07/23 11/10/23 Pnv,Calcium 72/Iron/Folic Acid 1 tab PO DAILY 05/07/23 11/10/23 [Westab Plus Tablet] Midazolam [Nayzilam] 5 mg NASAL DIRECTED PRN 11/10/23 11/10/23 Previous Rx's Medication Instructions Recorded HYDROcodone/APAP 5-325MG [[place] 1 tab PO Q6HR PRN 3 Days #12 tab 11/11/23 5-325] Ibuprofen [Motrin] 600 mg PO Q8HR PRN #30 tab 11/11/23 Docusate [Colace] 100 mg PO BID #30 capsule 11/12/23 Allergies Allergy/AdvReac Type Severity Reaction Status Date / Time nut - unspecified Allergy Anaphylaxis Verified 05/10/24 15:36 peanut Allergy Anaphylaxis Verified 05/10/24 15:36 Penicillins Allergy Anaphylaxis Verified 05/10/24 15:36 Sulfa (Sulfonamide Allergy Rash/Hives Verified 05/10/24 15:36 Antibiotics) tree nut [Nut] Allergy Anaphylaxis Verified 05/10/24 15:36 diphenhydramine AdvReac Confusion Verified 05/10/24 15:36 Review of Systems ROS Statement: Those systems with pertinent positive or pertinent negative responses have been documented in the HPI. ROS Other: All systems not noted in ROS Statement are negative. Past Medical History Past Medical History: Asthma, Diabetes Mellitus, Seizure Disorder, Thyroid Disorder Additional Past Medical History / Comment(s): cerebral palsy, gullian barre in 2011, multiple miscarriages, anemia. History of Any Multi-Drug Resistant Organisms: None Reported Past Surgical History: No Surgical Hx Reported Additional Past Surgical History / Comment(s): D&C Past Anesthesia/Blood Transfusion Reactions: No Reported Reaction Additional Past Anesthesia/Blood Transfusion Reaction / Comment(s): FATHER- TAKES LONGER TO WAKE UP WITH ANESTHESIA". "takes longer to wake up" Past Psychological History: Anxiety, Bipolar Smoking Status: Former smoker Past Alcohol Use History: None Reported Past Drug Use History: None Reported - Past Family History Mother Family Medical History: Diabetes Mellitus, Hypertension, Seizure Disorder, Supraventricular Tachycardia (SVT) Additional Family Medical History / Comment(s): SVT Father History Unknown: Yes General Exam Limitations: no limitations General appearance: alert, in no apparent distress Head exam: Present: atraumatic, normocephalic, normal inspection Eye exam: Present: normal appearance, PERRL, EOMI. Absent: scleral icterus, conjunctival injection, periorbital swelling ENT exam: Present: normal exam, mucous membranes moist Neck exam: Present: normal inspection. Absent: tenderness, meningismus, lymphadenopathy Respiratory exam: Present: normal lung sounds bilaterally. Absent: respiratory distress, wheezes, rales, rhonchi, stridor Cardiovascular Exam: Present: regular rate, normal rhythm, normal heart sounds. Absent: systolic murmur, diastolic murmur, rubs, gallop, clicks GI/Abdominal exam: Present: soft, normal bowel sounds. Absent: distended, tenderness, guarding, rebound, rigid Left Knee exam: Present: tenderness, swelling, pain/laxity with valgus, pain/laxity with varus. Absent: full ROM Foot/Toe exam: Present: normal inspection, full ROM. Absent: tenderness, swelling Neurovascular tendon exam: Present: no vascular compromise. Absent: pulse d eficit, abnormal cap refill Gait: not tested/not observed Back exam: Present: normal inspection Neurological exam: Present: alert, oriented X3, CN II-XII intact Psychiatric exam: Present: normal affect, normal mood Skin exam: Present: warm, dry, intact, normal color. Absent: rash Course Vital Signs 05/10/24 05/10/24 15:34 17:58 Temperature 98 F 98.3 F Pulse Rate 80 69 Respiratory 18 18 Rate Blood Pressure 136/88 117/78 O2 Sat by Pulse 98 100 Oximetry Medical Decision Making - Medical Decision Making Was pt. sent in by a medical professional or institution (, BRIT, HAT BLOCKING MACHINE OPERATOR, urgent care, hospital, or alf...) When possible be specific @ -No Did you speak to anyone other than the patient for history (EMS, parent, family, police, friend...)? What history was obtained from this source @ -No Did you review nursing and triage notes (agree or disagree)? Why? @ -I reviewed and agree with nursing and triage notes Were old charts reviewed (outside hosp., previous admission, EMS record, old EKG, old radiological studies, urgent care reports/EKG's, alf records)? Report findings @ -No old charts were reviewed Differential Diagnosis (chest pain, altered mental status, abdominal pain women, abdominal pain men, vaginal bleeding, weakness, fever, dyspnea, syncope, headache, dizziness, GI bleed, back pain, seizure, CVA, palpatations, mental health, musculoskeletal)? @ -Differential Musculoskeletal Muscular strain, contusion, ligament sprain, fracture, arthritis, septic arthritis, bursitis, cellulitis, muscle spasm, nerve compression, DVT, arterial occlusion, herpes zoster, electrolyte abnormality, tumor.... This is not meant to be in all inclusive list EKG interpreted by me (3pts min.). @ -None X-rays interpreted by me (1pt min.). @ -XR of left knee reveals an acute fracture of the patella with 15 mm distraction, soft tissue swelling CT interpreted by me (1pt min.). @ -None done U/S interpreted by me (1pt. min.). @ -None done What testing was considered but not performed or refused? (CT, X-rays, U/S, labs)? Why? @ -None What meds were considered but not given or refused? Why? @ -None Did you discuss the management of the patient with other professionals (professionals i.e. , PA, HAT BLOCKING MACHINE OPERATOR, lab, RT, psych nurse, social media marketing analyst, industrial technologist, teacher, facility security officer, complex case manager)? Give summary @ -No Was smoking cessation discussed for >3mins.? @ -No Was critical care preformed (if so, how long)? @ -No Were there social determinants of health that impacted care today? How? (Homelessness, low income, unemployed, alcoholism, drug addiction, transportation, low edu. Level, literacy, decrease access to med. care, care home, rehab)? @ -No Was there de-escalation of care discussed even if they declined (Discuss DNR or withdrawal of care, Hospice)? DNR status @ -No What co-morbidities impacted this encounter? (DM, HTN, Smoking, COPD, CAD, Cancer, CVA, ARF, Chemo, Hep., AIDS, mental health diagnosis, sleep apnea, morbid obesity)? @ -None Was patient admitted / discharged? Hospital course, mention meds given and route, prescriptions, significant lab abnormalities, going to OR and other pertinent info. @ -discharge. 28-year-old female with left knee pain. On examination patient noted to have pain over the anterior knee. She is neurovascularly intact with a 2+ pedal pulse and is able to move the ankle without pain. Patient has no pain.. X-ray concerning for a fracture of the patella. Patient's pain is well- controlled and she will be placed in a knee immobilizer at this time and in structed to maintain nonweightbearing status until she is able to follow-up with facilities specialist on Saturday or Saturday for further evaluation. Patient states that she does have crutches at home. She was offered medication emergency department escalating this time. All questions answered at bedside and strict return parameters discussed with the patient she is verbalized understanding. Case discussed with Dr. James Undiagnosed new problem with uncertain prognosis? @ -No Drug Therapy requiring intensive monitoring for toxicity (Heparin, Nitro, Insulin, Cardizem)? @ -No Were any procedures done? @ -No Diagnosis/symptom? @ -patella Fracture Acute, or Chronic, or Acute on Chronic? @ -Acute Uncomplicated (without systemic symptoms) or Complicated (systemic symptoms)? @ -uncomplicated Side effects of treatment? @ -No Exacerbation, Progression, or Severe Exacerbation? @ -No Poses a threat to life or bodily function? How? (Chest pain, USA, VT, pneumonia, PE, COPD, DKA, ARF, appy, cholecystitis, CVA, Diverticulitis, Homicidal, Suicidal, threat to staff... and all critical care pts) @ -No Disposition Clinical Impression: Patellar fracture Disposition: HOME SELF-CARE Condition: Good Instructions (If sedation given, give patient instructions): Patellar Fracture (ED) Additional Instructions: Return to the emergency department for any new or worsening symptoms. Continue to wear a brace and taking nonweightbearing status with crutches until follow-up with facilities specialist. Follow-up with facilities specialist on Saturday or Saturday of next week for further evaluation. Continue rest, ice, elevate and cycle Tylenol Motrin at home for symptomatic relief. Is patient prescribed a controlled substance at d/c from ED?: No Referrals: Garland Lopez MD [Primary Care Provider] - 1-2 days Claudia Betancourt DO [Doctor of Osteopathic Medicine] - 1-2 days Time of Disposition: 16:57
[2024-05-10 18:12] VITALS: BP 117/78; PULSE 69; TEMP 98.3
== END 2024-05-10 18:05 | disposition home or self-care (01) ==
LOC: EC 15:26
DX: S82.002A Unspecified fracture of left patella, initial encounter for closed fracture (principal); Z88.0 Allergy status to penicillin; Z88.2 Allergy status to sulfonamides; Z91.010 Allergy to peanuts; Z91.018 Allergy to other foods; W01.198A Fall on same level from slipping, tripping and stumbling with subsequent striking against other object, initial encounter
CPT/HCPCS: 73562; 99284; L1830

== ENCOUNTER 2024-05-22 06:00 | Inpatient (IN) | payer OTHER ==
[2024-05-22] MEDS ORDERED: MIDAZOLAM 2 MG/2 ML VIAL ONE ×2 (11:25→12:58)
[2024-05-22] MEDS ORDERED: ONDANSETRON 4 MG/2 ML VIAL ONE (11:25)
[2024-05-22] MEDS ORDERED: DEXAMETHASONE SOD PHOSPHATE 4 MG/ML 1 ML VIAL ONE ×3 (11:25→12:58)
[2024-05-22] MEDS ORDERED: ROPIVACAINE 5 MG/ML 30 ML VIAL ONE ×3 (11:26→12:58)
[2024-05-22] MEDS ORDERED: fentaNYL (PF) 50 MCG/ML 2 ML AMP ONE ×2 (11:29→12:58)
[2024-05-22] MEDS ORDERED: PROPOFOL 10 MG/ML 20 ML VIAL IV ONE (12:58)
[2024-05-22] MEDS ORDERED: HYDROmorphone (PF) 1 MG/ML ONE (12:58)
[2024-05-22] MEDS ORDERED: LIDOCAINE 1% INJ 10MG/ML (20 ML MDV) ONE (12:58)
[2024-05-22] MEDS ORDERED: SODIUM CHLORIDE 0.9% (PF) 10 ML VIAL ONE (12:58)
[2024-05-22] MEDS ORDERED: HYDROmorphone 0.5 MG/0.5 ML SYRINGE ONE ×2 (15:21→15:57)
[2024-05-22] MEDS ORDERED: MEPERIDINE 50 MG/ML SYRINGE ONE (15:30)
[2024-05-22 17:56] LABS: Glucose,Whole Blood 122 mg/dL (70-110)
[2024-05-22 21:28] LABS: Glucose,Whole Blood 151 mg/dL (70-110)
[2024-05-22] MEDS ORDERED: HYDROcodone/APAP 5-325MG 1 EACH TAB ONE ×2 (21:52)
[2024-05-23] MEDS ORDERED: HYDROcodone/APAP 5-325MG 1 EACH TAB ONE ×2 (06:13)
[2024-05-23 06:20] LABS: Glucose,Whole Blood 110 mg/dL (70-110)
== END 2024-05-23 11:42 | disposition home health service (06) | DRG 320 ==
LOC: OR 06:00 → 4SSUR 06:30
PROVIDERS: ADMIT Orthopaedic Surgery; ATTEND Orthopaedic Surgery
PROC: 3E0T3BZ Introduction of Anesthetic Agent into Peripheral Nerves and Plexi, Percutaneous Approach (ICD-10-PCS; 2024-05-22)
PROC: 0QSF04Z Reposition Left Patella with Internal Fixation Device, Open Approach (ICD-10-PCS; principal; 2024-05-22 13:40)
DX: S82.032A Displaced transverse fracture of left patella, initial encounter for closed fracture (principal); E11.9 Type 2 diabetes mellitus without complications; E07.9 Disorder of thyroid, unspecified; G40.909 Epilepsy, unspecified, not intractable, without status epilepticus; F32.A Depression, unspecified; G80.9 Cerebral palsy, unspecified; Z88.6 Allergy status to analgesic agent; Z88.1 Allergy status to other antibiotic agents; Z88.0 Allergy status to penicillin; Z98.51 Tubal ligation status; Z90.49 Acquired absence of other specified parts of digestive tract; W19.XXXA Unspecified fall, initial encounter; Y93.21 Activity, ice skating; Z91.040 Latex allergy status; Z91.018 Allergy to other foods

== ENCOUNTER 2024-06-30 08:29 | Inpatient (IN) | payer OTHER ==
[2024-06-30] MEDS: ONDANSETRON 4 MG/2 ML VIAL IVP STA (08:51)
[2024-06-30] MEDS: HYDROmorphone 1 MG/ML 1 ML SYRINGE IVP STA (08:53)
--- NOTE | 2024-06-30 08:54 | ED ---
Fall HPI - General Chief Complaint: Fall Stated Complaint: knee injury Time Seen by Provider: 06/30/24 08:36 Source: patient, EMS, RN notes reviewed Mode of arrival: EMS Limitations: no limitations - History of Present Illness Initial Comments: This is a 28-year-old female who presents to the emergency department for fall. Patient had knee surgery on 05/22 for a left patellar fracture with Dr. Griffin. States that this morning she twisted her ankle and fell, landing directly on her knee. States that the incision split back open and there is a substantial amount of bleeding. She does have some discomfort to the left ankle, but not nearly as severe as the knee. Prior to this event, states that she had been healing well from the surgery and there were no problems. MD Complaint: fall - Related Data Home Medications Medication Instructions Recorded Confirmed Ascorbic Acid [Vitamin C] 1,000 mg PO DAILY 05/07/23 06/30/24 Acetaminophen Tab [Tylenol Tab] 500 mg PO Q6H PRN 06/30/24 06/30/24 Cholecalciferol (Vitamin D3) 50 mcg PO DAILY 06/30/24 06/30/24 [Vitamin D3 (50 Mcg = 2000 Iu)] Cyanocobalamin (Vitamin B-12) 1,000 mcg PO DAILY 06/30/24 06/30/24 [Vitamin B-12] Ferrous Sulfate [Feosol] 325 mg PO DAILY 06/30/24 06/30/24 L.acidoph,Paracasei, B.lactis 1 cap PO DAILY 06/30/24 06/30/24 [Probiotic] Montelukast [Singulair] 10 mg PO DAILY 06/30/24 06/30/24 Previous Rx's Medication Instructions Recorded Ibuprofen [Motrin] 600 mg PO Q8HR PRN #30 tab 11/11/23 Allergies Allergy/AdvReac Type Severity Reaction Status Date / Time amoxicillin Allergy Anaphylaxis Verified 06/30/24 11:27 latex Allergy Rash, red Verified 06/30/24 11:27 skin nut - unspecified Allergy Anaphylaxis Verified 06/30/24 11:27 peanut Allergy Anaphylaxis Verified 06/30/24 11:27 Penicillins Allergy Anaphylaxis Verified 06/30/24 11:27 Sulfa (Sulfonamide Allergy Rash/Hives, Verified 06/30/24 11:27 Antibiotics) Anaphylaxis sulfamethoxazole Allergy hives, Verified 06/30/24 11:27 [From Bactrim] Anaphylaxis tree nut [Nut] Allergy Anaphylaxis Verified 06/30/24 11:27 trimethoprim [From Bactrim] Allergy hives, Verified 06/30/24 11:27 Anaphylaxis diphenhydramine AdvReac Even Verified 06/30/24 11:27 smallest dose "knocks her out" Review of Systems ROS Statement: Those systems with pertinent positive or pertinent negative responses have been documented in the HPI. ROS Other: All systems not noted in ROS Statement are negative. Past Medical History Past Medical History: Asthma, Diabetes Mellitus, Seizure Disorder, Thyroid Disorder Additional Past Medical History / Comment(s): cerebral palsy, gullian barre in 2010, multiple miscarriages, anemia. diet controlled dm,uneractive thyroid no meds, last seizure medically induced 11/2023 otherwise no seizure since age 16, curretnly on anbx for uti starting anbx 05/14/24 History of Any Multi-Drug Resistant Organisms: None Reported Past Surgical History: Cholecystectomy, Tubal Ligation Additional Past Surgical History / Comment(s): D&C Past Anesthesia/Blood Transfusion Reactions: No Reported Reaction Additional Past Anesthesia/Blood Transfusion Reaction / Comment(s): FATHER- TAKES LONGER TO WAKE UP WITH ANESTHESIA". "takes longer to wake up" Past Psychological History: Anxiety, Bipolar Smoking Status: Former smoker - Past Family History Mother Family Medical History: Diabetes Mellitus, Hypertension, Seizure Disorder, Supraventricular Tachycardia (SVT) Additional Family Medical History / Comment(s): SVT Father History Unknown: Yes General Exam Limitations: no limitations General appearance: alert, in distress Head exam: Present: atraumatic, normocephalic, normal inspection Respiratory exam: Present: normal lung sounds bilaterally. Absent: respiratory distress, wheezes, rales, rhonchi, stridor Cardiovascular Exam: Present: regular rate, normal rhythm, normal heart sounds. Absent: systolic murmur, diastolic murmur, rubs, gallop, clicks Extremities exam: Present: other (Left knee incision is open and actively bleeding) Neurological exam: Present: alert, oriented X3, CN II-XII intact Psychiatric exam: Present: normal affect, normal mood Course Vital Signs 06/30/24 06/30/24 06/30/24 08:34 10:02 15:28 Temperature 98.1 F 97.6 F Pulse Rate 93 94 88 Respiratory 18 18 16 Rate Blood Pressure 149/98 134/84 103/67 O2 Sat by Pulse 97 96 97 Oximetry Medical Decision Making - Medical Decision Making This is a 28-year-old female who presents to the emergency department for a left knee injury. Was pt. sent in by a medical professional or institution? @ -No Did you speak to anyone other than the patient for history? @ -No Did you review nursing and triage notes? @ -Yes, and I agree, it is accurate with regards to the patient's symptoms. Were old charts reviewed? @ -No Differential Diagnosis? @ -Differential Musculoskeletal: Muscular strain, contusion, ligament sprain, fracture, arthritis, septic arthritis, bursitis, cellulitis, muscle spasm, nerve compression, DVT, arterial occlusion, herpes zoster, electrolyte abnormality, tumor.... This is not meant to be in all inclusive list EKG interpreted by me (3pts min.)? @ -Not obtained X-rays interpreted by me (1pt min.)? @ -X-ray of the left knee obtained. My interpretation identifies a patellar fracture. X-ray of the left ankle obtained. My interpretation identifies no ac mayra fractures. CT interpreted by me (1pt min.)? @ -Not obtained U/S interpreted by me (1pt. min.)? @ -Not obtained What testing was considered but not performed? (CT, X-rays, U/S, labs)? Why? @ -None What meds were considered but not given? Why? @ -None Did you discuss the management of the patient with other professionals? @ -Yes, Uriel Jose with [facility] who advised admission to orthopedics. Did you reconcile home meds? @ -Yes Was smoking cessation discussed for >3mins.? @ -No Was critical care preformed (if so, how long)? @ -No Were there social determinants of health that impacted care today? How? (Homelessness, low income, unemployed, alcoholism, drug addiction, transportation, low edu. Level, literacy, decrease access to med. care, detention, rehab)? @ -No Was there de-escalation of care discussed even if they declined? (Discuss DNR or withdrawal of care, Hospice)? @ -No What co-morbidities impacted this encounter? (DM, HTN, Smoking, COPD, CAD, Cancer, CVA, Hep., AIDS, mental health diagnosis, sleep apnea, morbid obesity)? @ -None Was patient admitted / discharged? @ -Admitted. X-ray of the left knee demonstrates retraction of the patellar screws with distraction of the patella 2.7 cm. There is also bending of the lateral screw. X-ray of the left ankle was unremarkable. The majority of her whole incision had a completely split open with active bleeding. 1 g of Rocephin was administered for infectious prophylaxis. Pain was managed and preoperative lab work was obtained. Case discussed with orthopedics, who advised that they will admit the patient and take her to the OR for repair. Patient kept NPO. Medicine consulted for medical management. Case discussed with ED attending Dr. Smith. Undiagnosed new problem with uncertain prognosis? @ -None Drug Therapy requiring intensive monitoring for toxicity (Heparin, Nitro, Insulin, Cardizem)? @ -None Were any procedures done? @ -None Diagnosis/symptom? @ -Dehiscence of incision, left patellar fracture, fall Acute, or Chronic, or Acute on Chronic? @ -Acute Uncomplicated (without systemic symptoms) or Complicated (systemic symptoms)? @ -Uncomplicated Side effects of treatment? @ -None Exacerbation, Progression, or Severe Exacerbation] @ -Not applicable Poses a threat to life or bodily function? @ -Yes, can lead to infection and disability if not repaired. - Lab Data Result diagrams: 06/30/24 09:38 06/30/24 09:38 Lab Results 06/30/24 06/30/24 06/30/24 Range/Units 09:38 09:38 11:01 WBC 9.2 (3.8-10.6) k/uL RBC 4.59 (3.80-5.40) m/uL Hgb 13.7 (11.4-16.0) gm/dL Hct 40.6 (34.0-46.0) % MCV 88.4 (80.0-100.0) fL MCH 29.9 (25.0-35.0) pg MCHC 33.8 (31.0-37.0) g/dL RDW 13.6 (11.5-15.5) % Plt Count 172 (150-450) k/uL MPV 9.3 Neutrophils % 81 % Lymphocytes % 12 % Monocytes % 4 % Eosinophils % 1 % Basophils % 0 % Neutrophils # 7.5 (1.3-7.7) k/uL Lymphocytes # 1.1 (1.0-4.8) k/uL Monocytes # 0.4 (0-1.0) k/uL Eosinophils # 0.1 (0-0.7) k/uL Basophils # 0.0 (0-0.2) k/uL PT 10.1 (10.0-12.5) sec INR 0.9 (<1.2) APTT 24.4 (22.0-30.0) sec Sodium 137 (137-145) mmol/L Potassium 4.3 (3.5-5.1) mmol/L Chloride 105 (98-107) mmol/L Carbon Dioxide 25 (22-30) mmol/L Anion Gap 7 mmol/L BUN 12 (7-17) mg/dL Creatinine 0.53 (0.52-1.04) mg/dL Est GFR (CKD-EPI)AfAm >90 (>60 ml/min/1.73 sqM) Est GFR (CKD-EPI)NonAf >90 (>60 ml/min/1.73 sqM) Glucose 125 H (74-99) mg/dL Calcium 8.6 (8.4-10.2) mg/dL Total Bilirubin 0.3 (0.2-1.3) mg/dL AST 27 (14-36) U/L ALT 20 (4-34) U/L Alkaline Phosphatase 87 (38-126) U/L Total Protein 6.4 (6.3-8.2) g/dL Albumin 3.9 (3.5-5.0) g/dL HCG, Qual Not Detected - Radiology Data Radiology results: report reviewed, image reviewed Disposition Clinical Impression: Dehiscence of incision, Fall, Left patella fracture Disposition: ADMITTED IP TO THIS HOSP
--- NOTE | 2024-06-30 09:31 | XR ---
EXAMINATION TYPE: XR knee complete LT DATE OF EXAM: 06/30/2024 9:17 AM CLINICAL INDICATION: Female, 28 years old with history of Injury; [facility] COMPARISON: None. TECHNIQUE: XR knee complete LT; examined in Frontal, lateral and oblique projections. FINDINGS/IMPRESSION: Retraction of the patellar screws with distraction of the patella to 2.7 cm. Screws appear intact. Th ere is bending of the lateral screw. [facility], , 06/30/2024 9:29 AM
--- NOTE | 2024-06-30 09:32 | XR ---
EXAMINATION TYPE: XR ankle complete LT DATE OF EXAM: 06/30/2024 9:18 AM CLINICAL INDICATION: Female, 28 years old with history of Injury; [facility] COMPARISON: None TECHNIQUE: XR ankle complete LT; ankle is imaged in frontal, lateral and oblique projections. FINDINGS: There is no evidence of acute osseous pathology. No evidence of subluxation or dislocation. Kager's fat pad is intact. Soft tissues are within normal limits. No radiopaque foreign bodies are identified . IMPRESSION: No evidence of acute fracture. [facility], , 06/30/2024 9:30 AM
[2024-06-30] MEDS: cefTRIAXone IN SWFI 1,000 MG/10 ML SYRINGE IVP STA (09:38)
[2024-06-30 09:52] LABS: Basophils % (A) 0 %; Eosinophils # (A) 0.1 k/uL (0-0.7); Eosinophils % (A) 1 %; HCT 40.6 % (34.0-46.0); HGB 13.7 gm/dL (11.4-16.0); Lymphocytes # (A) 1.1 k/uL (1.0-4.8); Lymphocytes % (A) 12 %; MCH 29.9 pg (25.0-35.0); MCHC 33.8 g/dL (31.0-37.0); MCV 88.4 fL (80.0-100.0); Mean Platelet Volume 9.3; Monocytes # (A) 0.4 k/uL (0-1.0); Monocytes % (A) 4 %; Neutrophils # (A) 7.5 k/uL (1.3-7.7); Neutrophils % (A) 81 %; Platelet Count 172 k/uL (150-450); RBC 4.59 m/uL (3.80-5.40); RDW 13.6 % (11.5-15.5); WBC 9.2 k/uL (3.8-10.6)
[2024-06-30 10:21] LABS: ALT 20 U/L (4-34); AST 27 U/L (14-36); African American GFR (CKD) >90 (>60 ml/min/1.73 sqM); Albumin 3.9 g/dL (3.5-5.0); Alkaline Phosphatase 87 U/L (38-126); Anion Gap 7 mmol/L; Blood Urea Nitrogen 12 mg/dL (7-17); Calcium 8.6 mg/dL (8.4-10.2); Carbon Dioxide 25 mmol/L (22-30); Chloride 105 mmol/L (98-107); Glucose 125 mg/dL (74-99); Non-African American GFR(CKD) >90 (>60 ml/min/1.73 sqM); Potassium 4.3 mmol/L (3.5-5.1); Sodium 137 mmol/L (137-145); Total Bilirubin 0.3 mg/dL (0.2-1.3); Total Protein 6.4 g/dL (6.3-8.2)
[2024-06-30 10:27] LABS: HCG,Qualitative Serum Not Detected
[2024-06-30] MEDS ORDERED: ACETAMINOPHEN TAB 325 MG TAB PO PRN (11:05)
[2024-06-30] MEDS ORDERED: KETOROLAC 15 MG/ML 1 ML VIAL IVP PRN (11:05)
[2024-06-30] MEDS ORDERED: NALOXONE 0.4 MG/ML 1 ML VIAL IV PRN ×2 (11:05→17:50)
[2024-06-30] MEDS ORDERED: IBUPROFEN 400 MG TAB PO PRN (11:05)
[2024-06-30 11:16] LABS: INR 0.9 (<1.2); Partial Thromboplastin Time 24.4 sec (22.0-30.0); Prothrombin Time 10.1 sec (10.0-12.5)
--- NOTE | 2024-06-30 13:30 | P.HPOR ---
History of Present Illness H&P Date: 06/30/24 Chief Complaint: Left Knee open surgical wound and refracture of patella S/P ORIF Patient is a 28-year-old female seen at bedside in the ED this morning. She is S/P ORIF left patella per Dr. Griffin on 05/22/24. She presented to the emergency department for fall. She states that this morning she twisted her ankle and fell, landing directly on her knee. She was not wearing her knee immobilizer. She States that the incision split back open and there was a substantial amount of bleeding. She does have some discomfort to the left ankle, but not nearly as severe as the knee. Prior to this event, she states that she had been healing well from the surgery and there were no problems. She has no other c/o. Review of Systems All systems: negative Constitutional: Denies chills, Denies fever Eyes: denies blurred vision, denies pain Ears, nose, mouth and throat: Denies headache, Denies sore throat Cardiovascular: Denies chest pain, Denies shortness of breath Respiratory: Denies cough Gastrointestinal: Denies abdominal pain, Denies diarrhea, Denies nausea, Denies vomiting Genitourinary: Denies dysuria, Denies hematuria Musculoskeletal: Denies myalgias Integumentary: Denies pruritus, Denies rash Neurological: Denies numbness, Denies weakness Psychiatric: Denies anxiety, Denies depression Endocrine: Denies fatigue, Denies weight change Past Medical History Past Medical History: Asthma, Diabetes Mellitus, Seizure Disorder, Thyroid Disorder Additional Past Medical History / Comment(s): cerebral palsy, gullian barre in 2010, multiple miscarriages, anemia. diet controlled dm,uneractive thyroid no meds, last seizure medically induced 11/2023 otherwise no seizure since age 16, curretnly on anbx for uti starting anbx 05/14/24 History of Any Multi-Drug Resistant Organisms: None Reported Past Surgical History: Cholecystectomy, Tubal Ligation Additional Past Surgical History / Comment(s): D&C Past Anesthesia/Blood Transfusion Reactions: No Reported Reaction Additional Past Anesthesia/Blood Transfusion Reaction / Comment(s): FATHER- LAUREN ES LONGER TO WAKE UP WITH ANESTHESIA". "takes longer to wake up" Past Psychological History: Anxiety, Bipolar Smoking Status: Former smoker - Past Family History Mother Family Medical History: Diabetes Mellitus, Hypertension, Seizure Disorder, Supraventricular Tachycardia (SVT) Additional Family Medical History / Comment(s): SVT Father History Unknown: Yes Medications and Allergies Home Medications Medication Instructions Recorded Confirmed Type Ascorbic Acid [Vitamin C] 1,000 mg PO DAILY 05/07/23 06/30/24 History Ibuprofen [Motrin] 600 mg PO Q8HR PRN #30 tab 11/11/23 06/30/24 Rx Acetaminophen Tab [Tylenol Tab] 500 mg PO Q6H PRN 06/30/24 06/30/24 History Cholecalciferol (Vitamin D3) 50 mcg PO DAILY 06/30/24 06/30/24 History [Vitamin D3 (50 Mcg = 2000 Iu)] Cyanocobalamin (Vitamin B-12) 1,000 mcg PO DAILY 06/30/24 06/30/24 History [Vitamin B-12] Ferrous Sulfate [Feosol] 325 mg PO DAILY 06/30/24 06/30/24 History L.acidoph,Paracasei, B.lactis 1 cap PO DAILY 06/30/24 06/30/24 History [Probiotic] Montelukast [Singulair] 10 mg PO DAILY 06/30/24 06/30/24 History Allergies Allergy/AdvReac Type Severity Reaction Status Date / Time amoxicillin Allergy Anaphylaxis Verified 06/30/24 11:27 latex Allergy Rash, red Verified 06/30/24 11:27 skin nut - unspecified Allergy Anaphylaxis Verified 06/30/24 11:27 peanut Allergy Anaphylaxis Verified 06/30/24 11:27 Penicillins Allergy Anaphylaxis Verified 06/30/24 11:27 Sulfa (Sulfonamide Allergy Rash/Hives, Verified 06/30/24 11:27 Antibiotics) Anaphylaxis sulfamethoxazole Allergy hives, Verified 06/30/24 11:27 [From Bactrim] Anaphylaxis tree nut [Nut] Allergy Anaphylaxis Verified 06/30/24 11:27 trimethoprim [From Bactrim] Allergy hives, Verified 06/30/24 11:27 Anaphylaxis diphenhydramine AdvReac Even Verified 06/30/24 11:27 smallest dose "knocks her out" Physical Examination Inspection of the left knee shows an open longitudinal surgical wound over the left patella measuring approximately 4-6 inches. There is minimal bleeding currently. The bleeding is controlled. There is no signs of infection or purulence. There is evidence of deep tissue healing and granulation. Range of motion of the knee is not tested due to fracture. There is no erythema in the superficial tissue. There is no deformity that is obvious. Calf is soft and nontender. Neurovascular status appears to be grossly intact throughout the left lower extremity with motor and sensation. She has 2+ dorsalis pedis pulse. Less than 2-second capillary refill is present in all toes. Results X-rays of the left knee are reviewed and show distraction and displacement of previous ORIF of left patella fracture. No other new or acute fractures are seen. - Labs Labs: Abnormal Lab Results - Last 24 Hours (Table) 06/30/24 Range/Units 09:38 Glucose 125 H (74-99) mg/dL H & H 06/30/24 Range/Units 09:38 Hgb 13.7 (11.4-16.0) gm/dL Hct 40.6 (34.0-46.0) % Coagulation 06/30/24 Range/Units 11:01 INR 0.9 (<1.2) Result Diagrams: 06/30/24 09:38 06/30/24 09:38 - Diagnostic results Knee x-ray: report reviewed, image reviewed Assessment and Plan (1) Left patella fracture Narrative/Plan: Patient has been discussed with Dr. Griffin. Tentative plan is to proceed with surgical intervention this afternoon including I&D of left knee wound, partial patellectomy, repair of patellar tendon, and hardware removal. The procedure and possible risks as well as benefits have been reviewed with the patient and her mother. They desire to proceed. She has been NPO. The procedure has been ordered to be boarded as well as I have discussed with the OR staff. She will resume routine postop orthopedic protocol after surgery. Current Visit: Yes Status: Acute Priority: Medium Code(s): S82.002A - UNSP FRACTURE OF LEFT PATELLA, INIT FOR CLOS FX SNOMED Code(s): 49875042 Plan: I agree with the above history and physical. I met with the patient and reviewed her imaging. She underwent open reduction and internal fixation of a patella fracture almost 6 weeks ago. She was doing well until this morning when she lost her balance, caught her ankle, and hyperflexed her knee. She had immediate pain and noted an open wound over the anterior knee. She presented to our ER. She has an open wound communicating with her patella and failure of her operative fixation. I also discussed her case with an orthopedic trauma surgeon Dr. Levi Jason. We both agree that she would be best served with revision open reduction and internal fixation with a combination of plates, screws, and cerclage fixation. This is outside of my scope of practice. Due to the open wound I'm going to wash out her knee, remove the hardware, and closed her wound. I have no plans for operative fixation or definitive treatment at this time. This was discussed with the patient. She understands this. We will attempt to transfer the patient to [facility] following surgery. Time with Patient: Less than 30
[2024-06-30] MEDS ORDERED: ACETAMINOPHEN TAB 500 MG TAB PO PRN (13:33)
[2024-06-30] MEDS ORDERED: IBUPROFEN 600 MG TAB PO PRN (13:33)
[2024-06-30] MEDS: HYDROmorphone 1 MG/ML 1 ML SYRINGE IVP PRN (13:55)
[2024-06-30] MEDS: LACTATED RINGERS 1,000 ML IV ONE (16:08)
[2024-06-30 16:14] LABS: Glucose,Whole Blood 88 mg/dL (70-110)
[2024-06-30] MEDS: ONDANSETRON 4 MG/2 ML VIAL IVP PRN (16:26)
[2024-06-30] MEDS: DEXAMETHASONE SOD PHOSPHATE 4 MG/ML 1 ML VIAL IVP PRN (16:26)
[2024-06-30] MEDS ORDERED: fentaNYL (PF) 50 MCG/ML 2 ML AMP ONE (17:00)
[2024-06-30] MEDS ORDERED: MIDAZOLAM 2 MG/2 ML VIAL ONE (17:00)
[2024-06-30] MEDS ORDERED: PROPOFOL 10 MG/ML 20 ML VIAL IV ONE (17:00)
[2024-06-30] MEDS ORDERED: LIDOCAINE 1% INJ 10MG/ML (20 ML MDV) ONE (17:00)
[2024-06-30] MEDS: ceFAZolin 3,000 MG in SODIUM CHLORIDE 0.9% IRRIGATIO 3,000 ML IRRIGATION ONE (17:30)
[2024-06-30] MEDS ORDERED: HYDROcodone/APAP 5-325MG 1 EACH TAB PO PRN (17:50)
[2024-06-30] MEDS ORDERED: hydrOXYzine pamoate 25 MG CAP PO PRN (17:50)
[2024-06-30] MEDS ORDERED: ONDANSETRON 4 MG/2 ML VIAL IVP PRN (17:50)
[2024-06-30] MEDS ORDERED: diazePAM 5 MG TAB PO PRN (17:50)
--- NOTE | 2024-06-30 17:50 | P.OP ---
Date of Procedure: 06/30/24 Preoperative Diagnosis: 1. Open left patella fracture 2. Failure fixation due to traumatic injury left patella 3. History of recent patella fracture, left, status post open reduction and internal fixation with cannulated screws and cerclage fiber tape 4. Cerebral Palsy Postoperative Diagnosis: Same Procedure(s) Performed: 1. Irrigation and debridement left open patella fracture as part of a staged treatment ( Definitive open reduction internal fixation by another surgeon) 2. Hardware removal left knee 3. Application of incisional wound VAC, less than 50 cm, left knee, incision measuring 13 cm Anesthesia: ANIBALA Surgeon: Nicanor Griffin Shell Sorter #1: Hussain Ferrer Estimated Blood Loss (ml): 200 IV fluids (ml): 500 Pathology: none sent Condition: stable Disposition: PACU Indications for Procedure: The patient is a very pleasant 28-year-old female with a medical history significant for cerebral palsy and mild developmental delay who underwent open reduction and internal fixation of a closed left patella fracture 6 weeks ago. She was doing well until earlier today when she fell on her left knee. She states she was doing exercises without her brace when her left ankle became caught and her full body weight landed on her left knee. There was immediate pain and a large open wound. She was brought to our ER were she was found to have an open fracture with fixation failure and her left patella. I met with the patient later this afternoon. I also reviewed her case with orthopedic trauma surgeon Dr. Jason Jason. We both agree that the patient would be best managed with attempts at revision open reduction internal fixation. This is outside scope of practice. Due to the open fracture my plan was to perform an irrigation debridement, hardware removal, and closure of her wound. She will be transferred to Dr. Jason for definitive treatment. We discussed the potential risks and Locations at length. The patient understands that this is part of a staged procedure. Operative Findings: There was an obvious open fracture with exposed hardware and bone. Description of Procedure: Patient was identified in preoperative holding and the correct left leg was marked with my initials. I reviewed the consent form with the patient and all of her questions were answered. The patient was then brought back to the operating room by anesthesia. She was positioned on the OR table where a general anesthetic and preoperative antibiotics were given. A nonsterile drape was applied occluding the left leg. A presurgical scrub was performed using a chlorhexidine scrub brush. The left leg was then prepped and draped in the standard sterile fashion. Prior to starting surgery timeout was performed identifying the correct patient, operative extremity, and procedure. I began by extending the open wound proximally and distally along the scar. There was an obvious open fracture with exposed bone and surgical hardware. I performed a hardware removal of both cannulated screws one of which was spent. All nonabsorbable suture was also removed. An excisional debridement of the open patella fracture was then performed using a scalpel of all nonviable skin, subcutaneous tissue, and fascia down to the level of the patella. An irrigation was then performed using 3 L of sterile saline and cystoscopy tubing. Once the wound had been thoroughly irrigated and appeared clean the wound was closed in layers. An incisional wound VAC was applied over the closed incision. Patient was placed back into a knee immobilizer. She was awoken from her anesthetic and transferred to the floor having tolerated the procedure well. Hussain Ferrer PA-C was required as a skilled health care legal assistant due to the complexity of surgery for patient positioning, draping, retraction, exposure, and closure of wound. PLAN: The patient should remain strictly nonweightbearing on her left lower extremity in a knee immobilizer at all times. Revision open reduction and internal fixation of a comminuted and 6 weeks old patella fracture is outside of my scope of practice. We will plan on working to arrange transfer to [facility] under the care of Dr. Jason Jason tomorrow.
[2024-06-30] MEDS: HYDROmorphone 0.5 MG/0.5 ML SYRINGE IVP PRN ×2 (18:13→18:31)
[2024-06-30] MEDS: IV FLUID CONTINUATION 1,000 ML IV ONE (18:15)
[2024-06-30 19:05] LABS: Glucose,Whole Blood 115 mg/dL (70-110)
[2024-06-30] MEDS: HYDROcodone/APAP 10-325MG 1 EACH TAB PO PRN (20:30)
[2024-06-30] MEDS: SODIUM CHLORIDE 0.9% 1,000 ML IV SCH (20:31)
[2024-06-30 22:18] LABS: Glucose,Whole Blood 130 mg/dL (70-110)
[2024-07-01 06:39] LABS: Glucose,Whole Blood 148 mg/dL (70-110)
--- NOTE | 2024-07-01 09:32 | P.PN ---
Subjective Progress Note Date: 07/01/24 Principal diagnosis: Left patella re-fracture and wound dehiscence status post fall 06/30/2024 S/P ORIF left patella per Dr. Griffin on 05/22/24 Patient states they are doing okay this morning. They have been taking pain medication. They state their left knee pain is 7/10. No acute events overnight. Objective - Vital Signs Vital signs: Vital Signs Temp 98.1 F 07/01/24 08:35 Pulse 82 07/01/24 08:35 Resp 16 07/01/24 08:35 BP 145/83 07/01/24 08:35 Pulse Ox 95 07/01/24 08:35 FiO2 Intake & Output 06/30/24 07/01/24 07/01/24 18:59 06:59 18:59 Intake Total 1101 Output Total 200 950 Balance 901 -950 Weight 85.185 kg 85.185 kg Intake: IV 1101 Output: Urine 950 Estimated Blood Loss 200 Other: Voiding Method External Catheter - Exam Patient was examined at bedside this morning. Patient was resting in bed with head of bed raised. Patient was awake and alert and able to answer questions. Initially on inspection a left knee immobilizer was in place and there was an Norberto bandage on the left lower extremity. The knee immobilizer was opened and the Norberto bandage was partially removed. There was a surgical wound VAC in place over the anterior aspect of the left knee. The surgical wound VAC dressing is intact, the dressing is compressed. There is no surrounding erythema or drain age. The patient's anterior thigh and calf compartments are soft. The left foot appears well-perfused with capillary refill under 2 seconds in all toes. Patient reports gross sensation to light touch of the left foot. Patient is able to plantar and dorsiflex left ankle. The Norberto bandage was reapplied and the knee immobilizer was reapplied. - Labs CBC & Chem 7: 06/30/24 09:38 06/30/24 09:38 Labs: Abnormal Lab Results - Last 24 Hours (Table) 06/30/24 06/30/24 06/30/24 Range/Units 09:38 19:03 22:17 Glucose 125 H (74-99) mg/dL POC Glucose (mg/dL) 115 H 130 H (70-110) mg/dL 07/01/24 Range/Units 06:38 Glucose (74-99) mg/dL POC Glucose (mg/dL) 148 H (70-110) mg/dL Assessment and Plan Assessment: - POD#1 1. Irrigation and debridement left open patella fracture as part of a staged treatment ( Definitive open reduction internal fixation by another surgeon). 2. Hardware removal left knee. 3. Application of incisional wound VAC, less than 50 cm, left knee, incision measuring 13 cm. - Left patella re-fracture and wound dehiscence status post fall 06/30/2024 - S/P ORIF left patella per Dr. Griffin on 05/22/24 Plan: - The patient should remain strictly nonweightbearing on her left lower extremity in a knee immobilizer at all times. - Revision open reduction and internal fixation of a comminuted and 6 weeks old patella fracture to be done by another surgeon. - We will plan on working to arrange transfer to [facility] under the care of Dr. Jason Jason today.
[2024-07-01] MEDS: LACTOBACILLUS ACIDOPHILUS/PECT 1 EACH CAPSULE PO SCH (09:50)
[2024-07-01] MEDS: CHOLECALCIFEROL 25 MCG (1000 IU) TABLET PO SCH (09:50)
[2024-07-01] MEDS: ASCORBIC ACID 500 MG TAB PO SCH (09:51)
[2024-07-01] MEDS: MONTELUKAST 10 MG TAB PO SCH (09:52)
[2024-07-01] MEDS: FERROUS SULFATE 325 MG TAB PO SCH (09:52)
[2024-07-01] MEDS: CYANOCOBALAMIN 500 MCG TAB PO SCH (09:52)
[2024-07-01 12:08] LABS: Glucose,Whole Blood 113 mg/dL (70-110)
[2024-07-01 14:33] VITALS: BP 121/76; PULSE 90; RESP 17; TEMP 98.4
[2024-07-01] MEDS: HYDROmorphone 0.5 MG/0.5 ML SYRINGE IVP PRN (15:23)
[2024-07-01 16:52] LABS: Glucose,Whole Blood 113 mg/dL (70-110)
[2024-07-01 20:05] LABS: Glucose,Whole Blood 125 mg/dL (70-110)
--- NOTE | 2024-07-02 02:22 | CONS ---
CONSULTATION 28-year-old white female, status post knee operation due to her foot turning in for multiple sclerosis. She had irrigation and debridement of left open patella fracture. She is supposed to get definitive open reduction and internal fixation by another surgeon. Hardware removal from left knee, application of incisional wound VAC, 13 cm. She is in severe pain. Home medication had been reordered. PAST MEDICAL HISTORY: Reviewed. FAMILY HISTORY: Reviewed. Her mom is here in the room discussing the case with her. OBJECTIVE: VITAL SIGNS: Blood pressure 121/76, O2 is 96% on room air, temp 98.4, pulse 90s, respiratory rate 16-18. CARDIOVASCULAR: S1, S2. LUNGS: Transmitted upper sounds. GI: Soft. EXTREMITIES: She has a bandage and a brace on her left knee. Sugar is in the 80s to 113. ASSESSMENT: Status post knee surgery due to severe knee lacerations, status post fall; history of cerebral palsy; asthma; acute on chronic anemia. Continue home medications. She is stable from medical standpoint with home medications. She is 98% on 2 L. Continue current treatments. Transferred down to the [facility] per Orthopedics. Prognosis guarded. MMODL / IJN: [id number] /
== END 2024-07-01 23:24 | disposition short-term general hospital (02) | DRG 489 ==
LOC: EC 08:29 → 4SSUR 11:02
PROVIDERS: ADMIT Orthopaedic Surgery; ATTEND Orthopaedic Surgery
PROC: 0SPD04Z Removal of Internal Fixation Device from Left Knee Joint, Open Approach (ICD-10-PCS; 2024-06-30)
PROC: 3E0T3BZ Introduction of Anesthetic Agent into Peripheral Nerves and Plexi, Percutaneous Approach (ICD-10-PCS; 2024-06-30)
PROC: 0QSF04Z Reposition Left Patella with Internal Fixation Device, Open Approach (ICD-10-PCS; principal; 2024-06-30 11:50)
DX: S82.002B Unspecified fracture of left patella, initial encounter for open fracture type I or II (principal); S99.919A Unspecified injury of unspecified ankle, initial encounter; G80.9 Cerebral palsy, unspecified; G40.909 Epilepsy, unspecified, not intractable, without status epilepticus; F31.9 Bipolar disorder, unspecified; W01.0XXA Fall on same level from slipping, tripping and stumbling without subsequent striking against object, initial encounter; Z88.0 Allergy status to penicillin; Z91.040 Latex allergy status; Z88.1 Allergy status to other antibiotic agents
CPT/HCPCS: 36415; 80053; 84703; 85025; 85610; 85730; 96374; 96375; 96376; 99285

== ENCOUNTER 2024-09-12 15:07 | Emergency (ER) | payer OTHER ==
--- NOTE | 2024-09-12 15:43 | ED ---
URI HPI - General Source: patient, RN notes reviewed Mode of arrival: wheelchair Limitations: no limitations <Kelly Silvestre - Last Filed: 09/12/24 15:41> - General Source: patient, RN notes reviewed, old records reviewed <Ashu Watson - Last Filed: 09/12/24 17:56> - General Chief Complaint: Upper Respiratory Infection Stated Complaint: Fever Time Seen by Provider: 09/12/24 15:35 - History of Present Illness Initial Comments: Quick Note: This is a 28-year-old female who presents to the emergency department for URI symptoms. States that overnight she began to develop fevers with coughing and congestion. She does report multiple sick contacts with family members. (Kelly Silvestre) Patient is a 28-year-old female originally seen as a quick note. Presents emergency department URI symptoms for 1 day. Has been having low-grade fevers with nonproductive cough and congestion. Has a history of asthma. Has multiple sick contacts. No nausea or vomiting. No diarrhea. Presents for further evaluation at this time. (Ashu Watson) - Related Data Home Medications Medication Instructions Recorded Confirmed Ascorbic Acid [Vitamin C] 1,000 mg PO DAILY 05/07/23 06/30/24 Acetaminophen Tab [Tylenol Tab] 500 mg PO Q6H PRN 06/30/24 06/30/24 Cholecalciferol (Vitamin D3) 50 mcg PO DAILY 06/30/24 06/30/24 [Vitamin D3 (50 Mcg = 2000 Iu)] Cyanocobalamin (Vitamin B-12) 1,000 mcg PO DAILY 06/30/24 06/30/24 [Vitamin B-12] Ferrous Sulfate [Feosol] 325 mg PO DAILY 06/30/24 06/30/24 L.acidoph,Paracasei, B.lactis 1 cap PO DAILY 06/30/24 06/30/24 [Probiotic] Montelukast [Singulair] 10 mg PO DAILY 06/30/24 06/30/24 Previous Rx's Medication Instructions Recorded Ibuprofen [Motrin] 600 mg PO Q8HR PRN #30 tab 11/11/23 Albuterol Inhaler [Ventolin Hfa 1 - 2 puff INHALATION Q6H PRN #1 09/12/24 Inhaler] each Azithromycin [Zithromax] 250 mg PO DAILY 4 Days #4 tab 09/12/24 predniSONE [Deltasone] 40 mg PO DAILY 5 Days #10 tab 09/12/24 Allergies Allergy/AdvReac Type Severity Reaction Status Date / Time amoxicillin Allergy Anaphylaxis Verified 09/12/24 15:29 latex Allergy Rash, red Verified 09/12/24 15:29 skin nut - unspecified Allergy Anaphylaxis Verified 09/12/24 15:29 peanut Allergy Anaphylaxis Verified 09/12/24 15:29 Penicillins Allergy Anaphylaxis Verified 09/12/24 15:29 Sulfa (Sulfonamide Allergy Rash/Hives, Verified 09/12/24 15:29 Antibiotics) Anaphylaxis sulfamethoxazole Allergy hives, Verified 09/12/24 15:29 [From Bactrim] Anaphylaxis tree nut [Nut] Allergy Anaphylaxis Verified 09/12/24 15:29 trimethoprim [From Bactrim] Allergy hives, Verified 09/12/24 15:29 Anaphylaxis diphenhydramine AdvReac Even Verified 09/12/24 15:29 smallest dose "knocks her out" Review of Systems ROS Other: All systems not noted in ROS Statement are negative. <Kelly Silvestre - Last Filed: 09/12/24 15:41> ROS Other: All systems not noted in ROS Statement are negative. <Ashu Watson - Last Filed: 09/12/24 17:56> ROS Statement: Those systems with pertinent positive or pertinent negative responses have been documented in the HPI. Review of Systems: CONST: Endorses fever EYES: Denies blurry vision ENT: Endorses cough, congestion C/V: Denies Chest pain RESP: Denies shortness of breath GI: Denies abdominal pain : Denies dysuria SKIN: Denies rash. MSK: Denies joint pain. NEURO: Denies headache (Ashu Watson) Past Medical History Past Medical History: Asthma, Diabetes Mellitus, Seizure Disorder, Thyroid Disorder Additional Past Medical History / Comment(s): cerebral palsy, gullian barre in 2010, multiple miscarriages, anemia. diet controlled dm,uneractive thyroid no meds, last seizure medically induced 11/2023 otherwise no seizure since age 16, curretnly on anbx for uti starting anbx 05/14/24 History of Any Multi-Drug Resistant Organisms: None Reported Past Surgical History: Cholecystectomy, Tubal Ligation Additional Past Surgical History / Comment(s): D&C Past Anesthesia/Blood Transfusion Reactions: No Reported Reaction Additional Past Anesthesia/Blood Transfusion Reaction / Comment(s): TAKES LONGER TO WAKE UP WITH ANESTHESIA". "takes longer to wake up" Past Psychological History: Anxiety, Bipolar Smoking Status: Former smoker Past Alcohol Use History: None Reported Past Drug Use History: None Reported - Past Family History Mother Family Medical History: Diabetes Mellitus, Hypertension, Seizure Disorder, Supraventricular Tachycardia (SVT) Additional Family Medical History / Comment(s): SVT Father History Unknown: Yes <Kelly Silvestre - Last Filed: 09/12/24 15:41> General Exam Limitations: no limitations <Kelly Silvestre - Last Filed: 09/12/24 15:41> <Ashu Watson - Last Filed: 09/12/24 17:56> - General Exam Comments Initial Comments: Visual Physical Exam Vital signs reviewed General: Well-appearing, nontoxic, no acute distress. Head: Normocephalic, atraumatic Eyes: PERRLA, EOMI ENT: Airway patent Chest: Nonlabored breathing Skin: No visual rash, normal skin tone Neuro: Alert and oriented 3 Musculoskeletal: No gross abnormalities (Kelly Silvestre) General: Appears in no acute distress. Low-grade fever HEAD: Normal with no signs of head trauma. EYES: EOMI ENT: Hearing grossly intact, normal oropharynx. RESPIRATORY: Clear breath sounds bilaterally. No wheezes, rales, or rhonchi. Previous wheezing. No hypoxia. No significant increased work of breathing. C/V: Regular rate and rhythm. Peripheral pulses 2+ intact throughout. S1 and S2 auscultated. ABD: Abd is soft, nontender, nondistended EXT: No obvious deformity SKIN: No rashes or lesions observed on exposed skin. NEURO: Alert and oriented x 4. (Ashu Watson) Course Vital Signs 09/12/24 09/12/24 15:25 17:16 Temperature 99.9 F H 99.8 F H Pulse Rate 99 98 Respiratory 20 19 Rate Blood Pressure 124/71 124/70 O2 Sat by Pulse 98 98 Oximetry Medical Decision Making <Kelly Silvestre - Last Filed: 09/12/24 15:41> <Ashu Watson - Last Filed: 09/12/24 17:56> - Medical Decision Making I performed the QuickNote portion of this chart. Signed Kelly Silvestre PA-C. (Kelly Silvestre) Was pt. sent in by a medical professional or institution ([facility], GR[facility]ERY SPECIALIST, urgent care, hospital, or group home...) When possible be specific @ -No Did you speak to anyone other than the patient for history (EMS, parent, family, police, friend...)? What history was obtained from this source @ -No Did you review nursing and triage notes (agree or disagree)? Why? @ -I reviewed and agree with nursing and triage notes Were old charts reviewed (outside hosp., previous admission, EMS record, old EKG , old radiological studies, urgent care reports/EKG's, group home records)? Report findings @ -No old charts were reviewed Differential Diagnosis (chest pain, altered mental status, abdominal pain women, abdominal pain men, vaginal bleeding, weakness, fever, dyspnea, syncope, headache, dizziness, GI bleed, back pain, seizure, CVA, palpatations, mental health, musculoskeletal)? @ -COVID, flu, RSV, pneumonia, asthma. This list is not all inclusive EKG interpreted by me (3pts min.). @ -None done X-rays interpreted by me (1pt min.). @ -Left basilar pneumonia on chest x-ray CT interpreted by me (1pt min.). @ -None done U/S interpreted by me (1pt. min.). @ -None done What testing was considered but not performed or refused? (CT, X-rays, U/S, labs)? Why? @ -None What meds were considered but not given or refused? Why? @ -None Did you discuss the management of the patient with other professionals (professionals i.e. [facility], GROCERY SPECIALIST, lab, RT, psych nurse, social security specialist, clinical interviewer, teacher, patrol officer, continuous pillowcase cutter)? Give summary @ -No Was smoking cessation discussed for >3mins.? @ -No Was critical care preformed (if so, how long)? @ -No Were there social determinants of health that impacted care today? How? (Homelessness, low income, unemployed, alcoholism, drug addiction, transportation, low edu. Level, literacy, decrease access to med. care, prison, rehab)? @ -No Was there de-escalation of care discussed even if they declined (Discuss DNR or withdrawal of care, Hospice)? DNR status @ -No What co-morbidities impacted this encounter? (DM, HTN, Smoking, COPD, CAD, Cancer, CVA, ARF, Chemo, Hep., AIDS, mental health diagnosis, sleep apnea, morbid obesity)? @ -Asthma Was patient admitted / discharged? Hospital course, mention meds given and route, prescriptions, significant lab abnormalities, going to OR and other pertinent info. @ -Based on the patient's presentation and physical exam, presents with upper respiratory symptoms and low-grade fevers. He has a history of asthma but exam not significant for an asthma exacerbation at this time. Vitals are within acceptable limits. No hypoxia. I evaluate the patient after workup was completed as she was originally seen as a quick note. Viral swabs are negative. Chest x-ray shows a left basilar pneumonia. After the patient at this time. She will be started on antibiotics. I will also provide her with a dose of ibuprofen as well as IM Solu-Medrol here in the department. She will be given prednisone as well as azithromycin for home. Patient was in agreement this plan. Strict return precautions discussed. I will provide the patient with a prescription for prednisone, albuterol, azithromycin. I instructed the patient to follow up with their PCP in the next 1-3 days.. I explained that the patient should return to the emergency department if they experience any worsening symptoms. Strict return precautions were discussed with the patient. The patient expressed understanding of these instructions. I answered all questions that the patient had. The patient was discharged home in good condition with their prescriptions and follow up information. Undiagnosed new problem with uncertain prognosis? @ -No Drug Therapy requiring intensive monitoring for toxicity (Heparin, Nitro, Insulin, Cardizem)? @ -No Were any procedures done? @ -No Diagnosis/symptom? @ -Pneumonia Acute, or Chronic, or Acute on Chronic? @ -Acute Uncomplicated (without systemic symptoms) or Complicated (systemic symptoms)? @ -Complicated Side effects of treatment? @ -No Exacerbation, Progression, or Severe Exacerbation? @ -No Poses a threat to life or bodily function? How? (Chest pain, USA, [place], pneumonia, PE, COPD, DKA, ARF, appy, cholecystitis, CVA, Diverticulitis, Homicidal, Suicidal, threat to staff... and all critical care pts) @ -Unlikely at this time (Ashu Watson) - Lab Data Lab Results 09/12/24 Range/Units 15:30 Influenza Type A (PCR) Not Detected (Not Detectd) Influenza Type B (PCR) Not Detected (Not Detectd) RSV (PCR) Not Detected (Not Detectd) SARS-CoV-2 (PCR) Not Detected (Not Detectd) Disposition <Kelly Silvestre - Last Filed: 09/12/24 15:41> Is patient prescribed a controlled substance at d/c from ED?: No Time of Disposition: 16:40 <Ashu Watson - Last Filed: 09/12/24 17:56> Clinical Impression: Pneumonia, Asthma Disposition: HOME SELF-CARE Condition: Good Instructions (If sedation given, give patient instructions): Community Acquired Pneumonia (ED) Additional Instructions: You have a left lower lobe pneumonia that is developing. Continue antibiotics. Complete entire course. Use steroids as you have the history of asthma. Use your normal breathing treatments as well as inhalers. Return to the emergency department if worsening symptoms. Follow-up with your PCP in the next 1 to 3 days. Prescriptions: predniSONE [Deltasone] 40 mg PO DAILY 5 Days #10 tab Albuterol Inhaler [Ventolin Hfa Inhaler] 1 - 2 puff INHALATION Q6H PRN #1 each PRN Reason: Wheezing Azithromycin [Zithromax] 250 mg PO DAILY 4 Days #4 tab Referrals: Garland Lopez MD [Primary Care Provider] - 1-2 days
--- NOTE | 2024-09-12 15:57 | XR ---
EXAMINATION TYPE: XR chest 2V DATE OF EXAM: 09/12/2024 3:49 PM COMPARISON: Chest radiographs from CLINICAL INDICATION: Female, 28 years old with history of Cough, , TECHNIQUE: PA and lateral views FINDINGS: The cardiomediastinal silhouette, aorta, and pulmonary vasculature are within normal limits. Patchy l eft basilar opacity. IMPRESSION: Findings highly suspicious for developing left basilar pneumonia. [facility], , 09/12/2024 3:55 PM
[2024-09-12] MEDS: AZITHROMYCIN 500 MG TAB PO STA (17:02)
[2024-09-12] MEDS: IBUPROFEN 800 MG TAB PO STA (17:02)
[2024-09-12] MEDS: methylPREDNISolone SOD SUCCI 125 MG/2 ML VIAL IM ONE (17:03)
[2024-09-12 17:17] VITALS: BP 124/70; PULSE 98; RESP 19; TEMP 99.8
== END 2024-09-12 17:17 | disposition home or self-care (01) ==
LOC: EC 15:07
DX: J18.9 Pneumonia, unspecified organism (principal); J45.909 Unspecified asthma, uncomplicated; Z87.891 Personal history of nicotine dependence; Z88.0 Allergy status to penicillin; Z91.040 Latex allergy status; Z88.2 Allergy status to sulfonamides; Z88.1 Allergy status to other antibiotic agents; Z91.010 Allergy to peanuts; Z88.8 Allergy status to other drugs, medicaments and biological substances
CPT/HCPCS: 87636; 71046; 99283; 96372; J2919

== ENCOUNTER 2024-10-11 22:14 | Emergency (ER) | payer OTHER ==
[2024-10-11 22:30] VITALS: BP 128/85; PULSE 82; RESP 16; TEMP 98.8
--- NOTE | 2024-10-11 22:45 | ED ---
General Adult HPI - General Chief complaint: Recheck/Abnormal Lab/Rx Stated complaint: Lft leg post op complications Time Seen by Provider: 10/11/24 22:25 Source: patient, RN notes reviewed Mode of arrival: wheelchair Limitations: no limitations - History of Present Illness Initial comments: This is a 28-year-old female presenting with possible left knee infection. Patient states she had her most recent left knee surgery in July when a vertical incision was made following an injury. Patient states that the incision site has healed well except on the superior aspect where a small opening and suture remains. Patient states she recently noticed pus bubbling from opening, causing her concern. Onset/Timin -: days(s) Location: left, lower extremity Radiation: non-radiation Associated Symptoms: denies other symptoms Treatments Prior to Arrival: none - Related Data Home Medications Medication Instructions Recorded Confirmed Ascorbic Acid [Vitamin C] 1,000 mg PO DAILY 05/07/23 06/30/24 Acetaminophen Tab [Tylenol Tab] 500 mg PO Q6H PRN 06/30/24 06/30/24 Cholecalciferol (Vitamin D3) 50 mcg PO DAILY 06/30/24 06/30/24 [Vitamin D3 (50 Mcg = 2000 Iu)] Cyanocobalamin (Vitamin B-12) 1,000 mcg PO DAILY 06/30/24 06/30/24 [Vitamin B-12] Ferrous Sulfate [Feosol] 325 mg PO DAILY 06/30/24 06/30/24 L.acidoph,Paracasei, B.lactis 1 cap PO DAILY 06/30/24 06/30/24 [Probiotic] Montelukast [Singulair] 10 mg PO DAILY 06/30/24 06/30/24 Previous Rx's Medication Instructions Recorded Ibuprofen [Motrin] 600 mg PO Q8HR PRN #30 tab 11/11/23 Albuterol Inhaler [Ventolin Hfa 1 - 2 puff INHALATION Q6H PRN #1 09/12/24 Inhaler] each Azithromycin [Zithromax] 250 mg PO DAILY 4 Days #4 tab 09/12/24 predniSONE [Deltasone] 40 mg PO DAILY 5 Days #10 tab 09/12/24 clindamycin HCL 300 mg PO QID 7 Days #28 cap 10/11/24 Allergies Allergy/AdvReac Type Severity Reaction Status Date / Time amoxicillin Allergy Anaphylaxis Verified 10/11/24 22:30 latex Allergy Rash, red Verified 10/11/24 22:30 skin nut - unspecified Allergy Anaphylaxis Verified 10/11/24 22:30 peanut Allergy Anaphylaxis Verified 10/11/24 22:30 Penicillins Allergy Anaphylaxis Verified 10/11/24 22:30 Sulfa (Sulfonamide Allergy Rash/Hives, Verified 10/11/24 22:30 Antibiotics) Anaphylaxis sulfamethoxazole Allergy hives, Verified 10/11/24 22:30 [From Bactrim] Anaphylaxis tree nut [Nut] Allergy Anaphylaxis Verified 10/11/24 22:30 trimethoprim [From Bactrim] Allergy hives, Verified 10/11/24 22:30 Anaphylaxis diphenhydramine AdvReac Even Verified 10/11/24 22:30 smallest dose "knocks her out" Review of Systems ROS Statement: Those systems with pertinent positive or pertinent negative responses have been documented in the HPI. ROS Other: All systems not noted in ROS Statement are negative. Past Medical History Past Medical History: Asthma, Diabetes Mellitus, Seizure Disorder, Thyroid Disorder Additional Past Medical History / Comment(s): cerebral palsy, gullian barre in 2010, multiple miscarriages, anemia. diet controlled dm,uneractive thyroid no meds, last seizure medically induced 11/2023 otherwise no seizure since age 16, curretnly on anbx for uti starting anbx 05/14/24 History of Any Multi-Drug Resistant Organisms: None Reported Past Surgical History: Cholecystectomy, Tubal Ligation Additional Past Surgical History / Comment(s): D&C Past Anesthesia/Blood Transfusion Reactions: No Reported Reaction Additional Past Anesthesia/Blood Transfusion Reaction / Comment(s): TAKES LONGER TO WAKE UP WITH ANESTHESIA". "takes longer to wake up" Past Psychological History: Anxiety, Bipolar Smoking Status: Former smoker Past Alcohol Use History: None Reported Past Drug Use History: None Reported - Past Family History Mother Family Medical History: Diabetes Mellitus, Hypertension, Seizure Disorder, Supraventricular Tachycardia (SVT) Additional Family Medical History / Comment(s): SVT Father History Unknown: Yes General Exam Limitations: no limitations General appearance: alert, in no apparent distress Head exam: Present: atraumatic, normocephalic, normal inspection Eye exam: Present: normal appearance, PERRL, EOMI. Absent: scleral icterus, conjunctival injection, periorbital swelling ENT exam: Present: normal exam, mucous membranes moist Neck exam: Present: normal inspection. Absent: tenderness, meningismus, lymphadenopathy Respiratory exam: Present: normal lung sounds bilaterally. Absent: respiratory distress, wheezes, rales, rhonchi, stridor Cardiovascular Exam: Present: regular rate, normal rhythm, normal heart sounds. Absent: systolic murmur, diastolic murmur, rubs, gallop, clicks GI/Abdominal exam: Present: soft, normal bowel sounds. Absent: distended, tenderness, guarding, rebound, rigid Extremities exam: Present: normal inspection, full ROM, normal capillary refill. Absent: tenderness, pedal edema, joint swelling, calf tenderness Back exam: Present: normal inspection Neurological exam: Present: alert, oriented X3, CN II-XII intact Psychiatric exam: Present: normal affect, normal mood Skin exam: Present: warm, dry, intact (20 cm vertical incision site over left knee appears to be healed well with good adherence of laceration edges and no incision site erythema.), normal color, other ( Superior aspect of incision appears to show opening to incision site with bordering erythema but no obvious purulent discharge at this time. Suture is partially visible/palpable). Absent: rash Course Vital Signs 10/11/24 22:27 Temperature 98.8 F Pulse Rate 82 Respiratory 16 Rate Blood Pressure 128/85 O2 Sat by Pulse 97 Oximetry Medical Decision Making - Medical Decision Making Was pt. sent in by a medical professional or institution ([facility], BALLO[facility] TESTER, urgent care, hospital, or fpc...) When possible be specific @ -No Did you speak to anyone other than the patient for history (EMS, parent, family, police, friend...)? What history was obtained from this source @ -No Did you review nursing and triage notes (agree or disagree)? Why? @ -I reviewed and agree with nursing and triage notes Were old charts reviewed (outside hosp., previous admission, EMS record, old EKG, old radiological studies, urgent care reports/EKG's, fpc records)? Report findings @ -No old charts were reviewed Differential Diagnosis (chest pain, altered mental status, abdominal pain women, abdominal pain men, vaginal bleeding, weakness, fever, dyspnea, syncope, headache, dizziness, GI bleed, back pain, seizure, CVA, palpatations, mental health, musculoskeletal)? @ -Cellulitis, MRSA, incomplete healing of incision site EKG interpreted by me (3pts min.). @ -Not done X-rays interpreted by me (1pt min.). @ -None done CT interpreted by me (1pt min.). @ -None done U/S interpreted by me (1pt. min.). @ -None done What testing was considered but not performed or refused? (CT, X-rays, U/S, labs)? Why? @ -None What meds were considered but not given or refused? Why? @ -None Did you discuss the management of the patient with other professionals (professionals i.e. [employer], PA, BALLOON TESTER, lab, RT, psych nurse, mental health social worker, reworker, teacher, digital controls technical officer, case briefer)? Give summary @ -No Was smoking cessation discussed for >3mins.? @ -No Was critical care preformed (if so, how long)? @ -No Were there social determinants of health that impacted care today? How? (Homelessness, low income, unemployed, alcoholism, drug addiction, transportation, low edu. Level, literacy, decrease access to med. care, custodial, rehab)? @ -No Was there de-escalation of care discussed even if they declined (Discuss DNR or withdrawal of care, Hospice)? DNR status @ -No What co-morbidities impacted this encounter? (DM, HTN, Smoking, COPD, CAD, Cancer, CVA, ARF, Chemo, Hep., AIDS, mental health diagnosis, sleep apnea, morbid obesity)? @ -None Was patient admitted / discharged? Hospital course, mention meds given and route, prescriptions, significant lab abnormalities, going to OR and other pertinent info. @ -Suture removed. Aerobic wound culture ordered and Band-Aid applied. Clindamycin sent to pharmacy. Advised to keep area clean with antibacterial soap and water ice twice daily. Undiagnosed new problem with uncertain prognosis? @ -No Drug Therapy requiring intensive monitoring for toxicity (Heparin, Nitro, Insulin, Cardizem)? @ -No Were any procedures done? @ -No Diagnosis/symptom? @ -Cellulitis Acute, or Chronic, or Acute on Chronic? @ -Acute Uncomplicated (without systemic symptoms) or Complicated (systemic symptoms)? @ -Uncomplicated Side effects of treatment? @ -No Exacerbation, Progression, or Severe Exacerbation? @ -No Poses a threat to life or bodily function? How? (Chest pain, [place], [place], pneumonia, PE, COPD, DKA, ARF, appy, cholecystitis, CVA, Diverticulitis, Homicidal, Suicidal, threat to staff... and all critical care pts) @ -No Disposition Clinical Impression: Cellulitis of knee, left Disposition: HOME SELF-CARE Condition: Good Prescriptions: clindamycin HCL 300 mg PO QID 7 Days #28 cap Is patient prescribed a controlled substance at d/c from ED?: No Referrals: Garland Lopez MD [Primary Care Provider] - 1-2 days Time of Disposition: 22:46
== END 2024-10-12 00:01 | disposition home or self-care (01) ==
LOC: EC 22:14
DX: L03.116 Cellulitis of left lower limb (principal); Z87.891 Personal history of nicotine dependence; Z88.0 Allergy status to penicillin; Z91.040 Latex allergy status; Z91.010 Allergy to peanuts; Z88.2 Allergy status to sulfonamides; Z88.1 Allergy status to other antibiotic agents; Z91.018 Allergy to other foods; Z88.8 Allergy status to other drugs, medicaments and biological substances
CPT/HCPCS: 87070; 87205; 99282

== ENCOUNTER 2025-01-11 21:18 | Emergency (ER) | payer OTHER ==
--- NOTE | 2025-01-11 21:20 | ED ---
Seizure HPI - General Stated Complaint: Seizures Time Seen by Provider: 01/11/25 21:20 Source: RN notes reviewed, old records reviewed Mode of arrival: ambulatory Limitations: no limitations - History of Present Illness Initial Comments: This is a 29-year-old female to the ER for evaluation this patient presents today for evaluation regards to seizures recurrent seizures history of seizures has not had a seizure in years but admits to increased stress does not currently take seizure medications but currently feels well the seizure was witnessed and witnessed by EMS MD Complaint: seizure -: minutes(s) Description of Episode: loss of consciousness, tonic-clonic movement -: second(s) Witnessed: yes - by bystander, yes - by EMS Seizure History: known seizure disorder Possible Precipitating Event: none Associated Symptoms: denies other symptoms Treatments Prior to Arrival: none - Related Data Home Medications Medication Instructions Recorded Confirmed Ascorbic Acid [Vitamin C] 1,000 mg PO DAILY 05/07/23 06/30/24 Acetaminophen Tab [Tylenol Tab] 500 mg PO Q6H PRN 06/30/24 06/30/24 Cholecalciferol (Vitamin D3) 50 mcg PO DAILY 06/30/24 06/30/24 [Vitamin D3 (50 Mcg = 2000 Iu)] Cyanocobalamin (Vitamin B-12) 1,000 mcg PO DAILY 06/30/24 06/30/24 [Vitamin B-12] Ferrous Sulfate [Feosol] 325 mg PO DAILY 06/30/24 06/30/24 L.acidoph,Paracasei, B.lactis 1 cap PO DAILY 06/30/24 06/30/24 [Probiotic] Montelukast [Singulair] 10 mg PO DAILY 06/30/24 06/30/24 Previous Rx's Medication Instructions Recorded Ibuprofen [Motrin] 600 mg PO Q8HR PRN #30 tab 11/11/23 Albuterol Inhaler [Ventolin Hfa 1 - 2 puff INHALATION Q6H PRN #1 09/12/24 Inhaler] each Azithromycin [Zithromax] 250 mg PO DAILY 4 Days #4 tab 09/12/24 predniSONE [Deltasone] 40 mg PO DAILY 5 Days #10 tab 09/12/24 clindamycin HCL 300 mg PO QID 7 Days #28 cap 10/11/24 Allergies Allergy/AdvReac Type Severity Reaction Status Date / Time amoxicillin Allergy Anaphylaxis Verified 10/11/24 22:30 latex Allergy Rash, red Verified 10/11/24 22:30 skin nut - unspecified Allergy Anaphylaxis Verified 10/11/24 22:30 peanut Allergy Anaphylaxis Verified 10/11/24 22:30 Penicillins Allergy Anaphylaxis Verified 10/11/24 22:30 Sulfa (Sulfonamide Allergy Rash/Hives, Verified 10/11/24 22:30 Antibiotics) Anaphylaxis sulfamethoxazole Allergy hives, Verified 10/11/24 22:30 [From Bactrim] Anaphylaxis tree nut [Nut] Allergy Anaphylaxis Verified 10/11/24 22:30 trimethoprim [From Bactrim] Allergy hives, Verified 10/11/24 22:30 Anaphylaxis diphenhydramine AdvReac Even Verified 10/11/24 22:30 smallest dose "knocks her out" Review of Systems ROS Statement: Those systems with pertinent positive or pertinent negative responses have been documented in the HPI. ROS Other: All systems not noted in ROS Statement are negative. Past Medical History Past Medical History: Asthma, Diabetes Mellitus, Seizure Disorder, Thyroid Disorder Additional Past Medical History / Comment(s): cerebral palsy, gullian barre in 2010, multiple miscarriages, anemia. diet controlled dm,uneractive thyroid no meds, last seizure medically induced 11/2023 otherwise no seizure since age 16, curretnly on anbx for uti starting anbx 05/14/24 History of Any Multi-Drug Resistant Organisms: None Reported Past Surgical History: Cholecystectomy, Tubal Ligation Additional Past Surgical History / Comment(s): D&C Past Anesthesia/Blood Transfusion Reactions: No Reported Reaction Additional Past Anesthesia/Blood Transfusion Reaction / Comment(s): TAKES LONGER TO WAKE UP WITH ANESTHESIA". "takes longer to wake up" Past Psychological History: Anxiety, Bipolar Smoking Status: Former smoker Past Alcohol Use History: None Reported Past Drug Use History: None Reported - Past Family History Mother Family Medical History: Diabetes Mellitus, Hypertension, Seizure Disorder, Supraventricular Tachycardia (SVT) Additional Family Medical History / Comment(s): SVT Father History Unknown: Yes General Exam General appearance: alert, in no apparent distress Head exam: Present: atraumatic, normocephalic, normal inspection Eye exam: Present: normal appearance, PERRL, EOMI. Absent: scleral icterus, conjunctival injection, periorbital swelling ENT exam: Present: normal exam, mucous membranes moist Neck exam: Present: normal inspection. Absent: tenderness, meningismus, lymphadenopathy Respiratory exam: Present: normal lung sounds bilaterally. Absent: respiratory distress, wheezes, rales, rhonchi, stridor Cardiovascular Exam: Present: regular rate, normal rhythm, normal heart sounds. Absent: systolic murmur, diastolic murmur, rubs, gallop, clicks GI/Abdominal exam: Present: soft, normal bowel sounds. Absent: distended, tenderness, guarding, rebound, rigid Extremities exam: Present: normal inspection, full ROM, normal capillary refill. Absent: tenderness, pedal edema, joint swelling, calf tenderness Back exam: Present: normal inspection Neurological exam: Present: alert, oriented X3, CN II-XII intact Psychiatric exam: Present: normal affect, normal mood Skin exam: Present: warm, dry, intact, normal color. Absent: rash Course Vital Signs 01/11/25 01/11/25 21:26 23:27 Temperature 97.7 F Pulse Rate 106 H 100 Respiratory 18 20 Rate Blood Pressure 148/67 140/70 O2 Sat by Pulse 98 98 Oximetry - Reevaluation(s) Reevaluation #1: 01/12/25 00:37 Medical records reviewed Reevaluation #2: 01/12/25 00:37 No recurrent seizures here in the ER Reevaluation #3: 01/12/25 00:38 Patient informed of results questions answered Reevaluation #4: Was pt. sent in by a medical professional or institution (, PA, RECRUITING TEAM LEAD, urgent care, hospital, or snf...) When possible be specific @ -no Did you speak to anyone other than the patient for history (EMS, parent, family, police, friend...)? What history was obtained from this source @ -no Did you review nursing and triage notes (agree or disagree)? Why? @ -agree Are old charts reviewed (outside hosp., previous admission, EMS record, old EKG, old radiological studies, urgent care reports/EKG's, snf records)? Report findings @ -yes Differential Diagnosis (chest pain, altered mental status, abdominal pain women, abdominal pain men, vaginal bleeding, weakness, fever, dyspnea, syncope, headache, dizziness, GI bleed, back pain, seizure, CVA, palpatations, mental health, musculoskeletal)? @ -prior EKG interpreted by me (3pts min.). @ -no X-rays interpreted by me (1pt min.). @ -no CT interpreted by me (1pt min.). @ -no U/S interpreted by me (1pt. min.). @ -no What testing was considered but not performed or refused? (CT, X-rays, U/S, labs)? Why? @ -none What meds were considered but not given or refused? Why? @ -none Did you discuss the management of the patient with other professionals (professionals i.e. DrJamaica, PA, RECRUITING TEAM LEAD, lab, RT, psych nurse, group social worker, residential remodeling subcontractor, teacher, intelligence officer basic, egg caser)? Give summary @ -no Was smoking cessation discussed for >3mins.? @ -no Was critical care preformed (if so, how long)? @ -no Were there social determinants of health that impacted care today? How? (Homelessness, low income, unemployed, alcoholism, drug addiction, transportation, low edu. Level, literacy, decrease access to med. care, fci, rehab)? @ -none Was there de-escalation of care discussed even if they declined (Discuss DNR or withdrawal of care, Hospice)? DNR status @ -no What co-morbidities impacted this encounter? (DM, HTN, Smoking, COPD, CAD, Cancer, CVA, ARF, Chemo, Hep., AIDS, mental health diagnosis, sleep apnea, morbid obesity)? @ -none Was patient admitted / discharged? Hospital course, mention meds given and route, prescriptions, significant lab abnormalities, going to OR and other pertinent info. @ - 29 female to ER with recurrent seizure this is a seizure from place and time of last seizure she does not currently take seizure medications will follow-up with neurology as an outpatient no recurrent seizure activity here in the ER Discharged Undiagnosed new problem with uncertain prognosis? @ -no Drug Therapy requiring intensive monitoring for toxicity (Heparin, Nitro, Insulin, Cardizem)? @ -no Were any procedures done? @ -no Diagnosis/symptom? @ -Seizure recurrent seizure Acute, or Chronic, or Acute on Chronic? @ -Acute Uncomplicated (without systemic symptoms) or Complicated (systemic symptoms)? @ -Complicated Side effects of treatment? @ -no Exacerbation, Progression, or Severe Exacerbation? @ -exacerbation Poses a threat to life or bodily function? How? (Chest pain, [place], [place], pneumonia, PE, COPD, DKA, ARF, appy, cholecystitis, CVA, Diverticulitis, Homicidal, Suicida l, threat to staff... and all critical care pts) @ -yes seizure with status epilepticus possible Reevaluation #5: Differential Seizure: Recurrent seizure disorder, febrile seizure, alcohol withdrawal, stimulants, meningitis, encephalitis, intercranial hemorrhage, intracranial tumor, stroke, eclampsia, thyrotoxicosis, hypocalcemia, hyponatremia, hypernatremia, hypomagnes emia, psychogenic, this is not meant to be an all-inclusive list. Medical Decision Making - Medical Decision Making 29 female to ER with recurrent seizure this is a seizure from place and time of last seizure she does not currently take seizure medications will follow-up with neurology as an outpatient no recurrent seizure activity here in the ER - Lab Data Result diagrams: 01/11/25 22:04 01/11/25 22:04 Lab Results 01/11/25 01/11/25 01/11/25 Range/Units 22:04 22:04 22:20 WBC 10.0 (3.8-10.6) k/uL RBC 4.74 (3.80-5.40) m/uL Hgb 11.9 (11.4-16.0) gm/dL Hct 38.1 (34.0-46.0) % MCV 80.4 (80.0-100.0) fL MCH 25.1 (25.0-35.0) pg MCHC 31.2 (31.0-37.0) g/dL RDW 16.0 H (11.5-15.5) % Plt Count 287 (150-450) k/uL MPV 8.7 Neutrophils % 80 % Lymphocytes % 12 % Monocytes % 4 % Eosinophils % 2 % Basophils % 0 % Neutrophils # 8.1 H (1.3-7.7) k/uL Lymphocytes # 1.2 (1.0-4.8) k/uL Monocytes # 0.4 (0-1.0) k/uL Eosinophils # 0.2 (0-0.7) k/uL Basophils # 0.0 (0-0.2) k/uL Hypochromasia Marked Sodium 139 (137-145) mmol/L Potassium 3.8 (3.5-5.1) mmol/L Chloride 104 (98-107) mmol/L Carbon Dioxide 26 (22-30) mmol/L Anion Gap 9 mmol/L BUN 13 (7-17) mg/dL Creatinine 0.75 (0.52-1.04) mg/dL Est GFR (CKD-EPI)AfAm >90 (>60 ml/min/1.73 sqM) Est GFR (CKD-EPI)NonAf >90 (>60 ml/min/1.73 sqM) Glucose 117 H (74-99) mg/dL Calcium 8.9 (8.4-10.2) mg/dL Magnesium 1.8 (1.6-2.3) mg/dL Total Bilirubin 0.3 (0.2-1.3) mg/dL AST 24 (14-36) U/L ALT 32 (4-34) U/L Alkaline Phosphatase 105 (38-126) U/L Total Protein 7.0 (6.3-8.2) g/dL Albumin 4.1 (3.5-5.0) g/dL Urine Color Yellow Urine Appearance Clear (Clear) Urine pH 6.0 (5.0-8.0) Ur Specific [place] 1.031 (1.001-1.035) Urine Protein Trace H (Negative) Urine Glucose (UA) Negative (Negative) Urine Ketones Negative (Negative) Urine Blood Negative (Negative) Urine Nitrite Negative (Negative) Urine Bilirubin Negative (Negative) Urine Urobilinogen <2.0 (<2.0) mg/dL Ur Leukocyte Esterase Negative (Negative) Urine HCG, Qual (Not Detectd) Salicylates <1.0 mg/dL Urine Opiates Screen Not Detected (NotDetected) Ur Oxycodone Screen Not Detected (NotDetected) Urine Methadone Screen Not Detected (NotDetected) Acetaminophen <10.0 ug/mL Ur Barbiturates Screen Not Detected (NotDetected) U Tricyclic Antidepress Not Detected (NotDetected) Ur Phencyclidine Scrn Not Detected (NotDetected) Ur Amphetamines Screen Not Detected (NotDetected) U Methamphetamines Scrn Not Detected (NotDetected) U Benzodiazepines Scrn Not Detected (NotDetected) Urine Cocaine Screen Not Detected (NotDetected) U Marijuana (THC) Screen Not Detected (NotDetected) Serum Alcohol <10 mg/dL 01/11/25 Range/Units 22:20 WBC (3.8-10.6) k/uL RBC (3.80-5.40) m/uL Hgb (11.4-16.0) gm/dL Hct (34.0-46.0) % MCV (80.0-100.0) fL MCH (25.0-35.0) pg MCHC (31.0-37.0) g/dL RDW (11.5-15.5) % Plt Count (150-450) k/uL MPV Neutrophils % % Lymphocytes % % Monocytes % % Eosinophils % % Basophils % % Neutrophils # (1.3-7.7) k/uL Lymphocytes # (1.0-4.8) k/uL Monocytes # (0-1.0) k/uL Eosinophils # (0-0.7) k/uL Basophils # (0-0.2) k/uL Hypochromasia Sodium (137-145) mmol/L Potassium (3.5-5.1) mmol/L Chloride (98-107) mmol/L Carbon Dioxide (22-30) mmol/L Anion Gap mmol/L BUN (7-17) mg/dL Creatinine (0.52-1.04) mg/dL Est GFR (CKD-EPI)AfAm (>60 ml/min/1.73 sqM) Est GFR (CKD-EPI)NonAf (>60 ml/min/1.73 sqM) Glucose (74-99) mg/dL Calcium (8.4-10.2) mg/dL Magnesium (1.6-2.3) mg/dL Total Bilirubin (0.2-1.3) mg/dL AST (14-36) U/L ALT (4-34) U/L Alkaline Phosphatase (38-126) U/L Total Protein (6.3-8.2) g/dL Albumin (3.5-5.0) g/dL Urine Color Urine Appearance (Clear) Urine pH (5.0-8.0) Ur Specific [place] (1.001-1.035) Urine Protein (Negative) Urine Glucose (UA) (Negative) Urine Ketones (Negative) Urine Blood (Negative) Urine Nitrite (Negative) Urine Bilirubin (Negative) Urine Urobilinogen (<2.0) mg/dL Ur Leukocyte Esterase (Negative) Urine HCG, Qual Not Detected (Not Detectd) Salicylates mg/dL Urine Opiates Screen (NotDetected) Ur Oxycodone Screen (NotDetected) Urine Methadone Screen (NotDetected) Acetaminophen ug/mL Ur Barbiturates Screen (NotDetected) U Tricyclic Antidepress (NotDetected) Ur Phencyclidine Scrn (NotDetected) Ur Amphetamines Screen (NotDetected) U Methamphetamines Scrn (NotDetected) U Benzodiazepines Scrn (NotDetected) Urine Cocaine Screen (NotDetected) U Marijuana (THC) Screen (NotDetected) Serum Alcohol mg/dL Disposition Clinical Impression: Generalized seizure, Epileptic seizure, generalized Disposition: HOME SELF-CARE Condition: Fair Instructions (If sedation given, give patient instructions): Seizure/Epilepsy Discharge Instructions & Follow-Up, Recurrent Seizures in Adults (ED) Is patient prescribed a controlled substance at d/c from ED?: No Referrals: Garland Lopez MD [Primary Care Provider] - 1-2 days Elliott Garcia MD [STAFF PHYSICIAN] - 1-2 days Gene Cortez MD [REFERRING] - 1-2 days Time of Disposition: 22:30
[2025-01-11 21:40] VITALS: TEMP 97.7
[2025-01-11 22:09] LABS: Basophils % (A) 0 %; Eosinophils # (A) 0.2 k/uL (0-0.7); Eosinophils % (A) 2 %; HCT 38.1 % (34.0-46.0); HGB 11.9 gm/dL (11.4-16.0); Hypochromasia Marked; Lymphocytes # (A) 1.2 k/uL (1.0-4.8); Lymphocytes % (A) 12 %; MCH 25.1 pg (25.0-35.0); MCHC 31.2 g/dL (31.0-37.0); MCV 80.4 fL (80.0-100.0); Mean Platelet Volume 8.7; Monocytes # (A) 0.4 k/uL (0-1.0); Monocytes % (A) 4 %; Neutrophils # (A) 8.1 k/uL (1.3-7.7); Neutrophils % (A) 80 %; Platelet Count 287 k/uL (150-450); RBC 4.74 m/uL (3.80-5.40)
[2025-01-11 22:20] LABS: ALT 32 U/L (4-34); AST 24 U/L (14-36); Acetaminophen <10.0 ug/mL; African American GFR (CKD) >90 (>60 ml/min/1.73 sqM); Albumin 4.1 g/dL (3.5-5.0); Alcohol <10 mg/dL; Alkaline Phosphatase 105 U/L (38-126); Anion Gap 9 mmol/L; Blood Urea Nitrogen 13 mg/dL (7-17); Calcium 8.9 mg/dL (8.4-10.2); Carbon Dioxide 26 mmol/L (22-30); Chloride 104 mmol/L (98-107); Glucose 117 mg/dL (74-99); Magnesium 1.8 mg/dL (1.6-2.3); Non-African American GFR(CKD) >90 (>60 ml/min/1.73 sqM); Potassium 3.8 mmol/L (3.5-5.1); Salicylate <1.0 mg/dL; Sodium 139 mmol/L (137-145); Total Bilirubin 0.3 mg/dL (0.2-1.3)
[2025-01-11] MEDS: ONDANSETRON 4 MG/2 ML VIAL IVP STA (23:09)
[2025-01-11 23:12] LABS: Appearance,Urine Clear (Clear); Bilirubin,Urine Negative (Negative); Blood,Urine Negative (Negative); Color,Urine Yellow; Glucose,Urine (UA) Negative (Negative); Ketones,Urine Negative (Negative); Leukocyte Esterase,Urine Negative (Negative); Nitrite,Urine Negative (Negative); Protein,Urine Trace (Negative); Specific Gravity,Urine 1.031 (1.001-1.035); Urobilinogen,Urine <2.0 mg/dL (<2.0)
[2025-01-11] MEDS: LORazepam 2 MG/ML INJ IV STA (23:12)
[2025-01-11] MEDS: SODIUM CHLORIDE 0.9% 1,000 ML IV STA (23:26)
[2025-01-11] MEDS: SODIUM CHLORIDE 0.9% 500 ML 500 ML IV STA (23:27)
[2025-01-11 23:29] VITALS: BP 140/70; PULSE 100; RESP 20
[2025-01-11 23:29] LABS: Amphetamine Screen,Urine Not Detected (NotDetected); Barbiturate Screen,Urine Not Detected (NotDetected); Benzodiazepines Screen,Urine Not Detected (NotDetected); Cocaine Screen,Urine Not Detected (NotDetected); Methadone Screen, Urine Not Detected (NotDetected); Opiate Screen,Urine Not Detected (NotDetected); Oxycodone Screen, Urine Not Detected (NotDetected); Phencyclidine Screen,Urine Not Detected (NotDetected); Tricyclic Antidepressant,Urine Not Detected (NotDetected); Urn Cannabinoid Scrn Not Detected (NotDetected)
== END 2025-01-11 23:50 | disposition home or self-care (01) ==
LOC: EC 21:18
DX: G40.409 Other generalized epilepsy and epileptic syndromes, not intractable, without status epilepticus (principal); Z87.891 Personal history of nicotine dependence; Z88.0 Allergy status to penicillin; Z88.1 Allergy status to other antibiotic agents; Z88.2 Allergy status to sulfonamides; Z91.010 Allergy to peanuts; Z91.018 Allergy to other foods; Z91.040 Latex allergy status; Z88.8 Allergy status to other drugs, medicaments and biological substances
CPT/HCPCS: 36415; 80053; 83735; 85025; 81003; 81025; 80306; 80143; 80179; 99284; 96374; 96375; G0480; J2060; J2405; 80320

== ENCOUNTER 2025-02-28 21:06 | Emergency (ER) | payer OTHER ==
--- NOTE | 2025-02-28 22:24 | ED ---
Back Pain HPI <Vasiliy Burgess Juana - Last Filed: 02/28/25 23:31> - General Source: patient, RN notes reviewed Mode of arrival: ambulatory Limitations: no limitations - History of Present Illness MD Complaint: back pain Onset/Timin -: days(s) Place: home Radiation: left leg, right leg Severity scale (1-10): 10 Quality: stabbing Consistency: constant Improves With: immobilization, other (Prone) Worsens With: movement, supine, sitting upright, walking Associated Symptoms: numbness (Bilateral pedal paresthesia) <Scout Hong - Last Filed: 03/01/25 21:08> - General Chief Complaint: Back Pain/Injury Stated Complaint: Back pain Time Seen by Provider: 02/28/25 21:20 - History of Present Illness Initial Comments: This is a 29-year-old female with history including DM, cerebral palsy and Guillain Snyder syndrome presenting for low back pain (07/23) x 1 day. Patient states symptoms started suddenly after sitting in her kitchen, finding she was unable to stand afterwards with significant pain in her right lower back. Patient states any movement, sitting, standing, walking and lying supine makes pain/symptoms worse, finding that lying prone is the only comfortable position for her. States that she has collapsed while standing due to the pain. Denies striking head, loss of consciousness, neck pain or any other significant injury at that time. Endorses associated bilateral pedal paresthesia and bilateral pain in lower extremities. Denies saddle paresthesia, urinary incontinence/retention. 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 Denies recent viral illness, vaccination, trauma. Denies fever, chills, neck stiffness, dyspnea, altered mental status, abdominal pain, N/V/D, urinary symptoms. (Scout Hong) - Related Data Home Medications Medication Instructions Recorded Confirmed Ascorbic Acid [Vitamin C] 1,000 mg PO DAILY 05/07/23 06/30/24 Acetaminophen Tab [Tylenol Tab] 500 mg PO Q6H PRN 06/30/24 06/30/24 Cholecalciferol (Vitamin D3) 50 mcg PO DAILY 06/30/24 06/30/24 [Vitamin D3 (50 Mcg = 2000 Iu)] Cyanocobalamin (Vitamin B-12) 1,000 mcg PO DAILY 06/30/24 06/30/24 [Vitamin B-12] Ferrous Sulfate [Feosol] 325 mg PO DAILY 06/30/24 06/30/24 L.acidoph,Paracasei, B.lactis 1 cap PO DAILY 06/30/24 06/30/24 [Probiotic] Montelukast [Singulair] 10 mg PO DAILY 06/30/24 06/30/24 Previous Rx's Medication Instructions Recorded Ibuprofen [Motrin] 600 mg PO Q8HR PRN #30 tab 11/11/23 Albuterol Inhaler [Ventolin Hfa 1 - 2 puff INHALATION Q6H PRN #1 09/12/24 Inhaler] each Azithromycin [Zithromax] 250 mg PO DAILY 4 Days #4 tab 09/12/24 predniSONE [Deltasone] 40 mg PO DAILY 5 Days #10 tab 09/12/24 clindamycin HCL 300 mg PO QID 7 Days #28 cap 10/11/24 Allergies Allergy/AdvReac Type Severity Reaction Status Date / Time amoxicillin Allergy Anaphylaxis Verified 02/28/25 21:10 latex Allergy Rash, red Verified 02/28/25 21:10 skin nut - unspecified Allergy Anaphylaxis Verified 02/28/25 21:10 peanut Allergy Anaphylaxis Verified 02/28/25 21:10 Penicillins Allergy Anaphylaxis Verified 02/28/25 21:10 Sulfa (Sulfonamide Allergy Rash/Hives, Verified 02/28/25 21:10 Antibiotics) Anaphylaxis sulfamethoxazole Allergy hives, Verified 02/28/25 21:10 [From Bactrim] Anaphylaxis tree nut [Nut] Allergy Anaphylaxis Verified 02/28/25 21:10 trimethoprim [From Bactrim] Allergy hives, Verified 02/28/25 21:10 Anaphylaxis diphenhydramine AdvReac Even Verified 02/28/25 21:10 smallest dose "knocks her out" Review of Systems ROS Other: All systems not noted in ROS Statement are negative. <Vasiliy Burgess - Last Filed: 02/28/25 23:31> ROS Other: All systems not noted in ROS Statement are negative. <Scout Hong - Last Filed: 03/01/25 21:08> ROS Statement: Those systems with pertinent positive or pertinent negative responses have been documented in the HPI. Past Medical History Past Medical History: Asthma, Diabetes Mellitus, Seizure Disorder, Thyroid Disorder Additional Past Medical History / Comment(s): cerebral palsy, gullian barre in 2011, multiple miscarriages, anemia. diet controlled dm,uneractive thyroid no meds, last seizure medically induced 11/2023 otherwise no seizure since age 16, curretnly on anbx for uti starting anbx 05/14/24 History of Any Multi-Drug Resistant Organisms: None Reported Past Surgical History: Cholecystectomy, Orthopedic Surgery, Tubal Ligation Additional Past Surgical History / Comment(s): D&C Past Anesthesia/Blood Transfusion Reactions: No Reported Reaction Additional Past Anesthesia/Blood Transfusion Reaction / Comment(s): TAKES LONGER TO WAKE UP WITH ANESTHESIA". "takes longer to wake up" Past Psychological History: Anxiety, Bipolar Smoking Status: Former smoker Past Alcohol Use History: None Reported Past Drug Use History: None Reported - Past Family History Mother Family Medical History: Diabetes Mellitus, Hypertension, Seizure Disorder, Lamas praventricular Tachycardia (SVT) Additional Family Medical History / Comment(s): SVT Father History Unknown: Yes <Scout Hong - Last Filed: 03/01/25 21:08> General Exam Limitations: no limitations General appearance: alert, anxious, in distress Head exam: Present: atraumatic, normocephalic, normal inspection Eye exam: Present: normal appearance, PERRL, EOMI. Absent: scleral icterus, conjunctival injection, periorbital swelling ENT exam: Present: normal exam, mucous membranes moist Neck exam: Present: normal inspection. Absent: tenderness, meningismus, lymphadenopathy Respiratory exam: Present: normal lung sounds bilaterally. Absent: respiratory distress, wheezes, rales, rhonchi, stridor Cardiovascular Exam: Present: regular rate, normal rhythm, normal heart sounds. Absent: systolic murmur, diastolic murmur, rubs, gallop, clicks GI/Abdominal exam: Present: soft, normal bowel sounds. Absent: distended, tenderness, guarding, rebound, rigid Extremities exam: Present: full ROM, tenderness (Positive diffuse tenderness in BLE), normal capillary refill, other (Patient notes bilateral pedal paresthesia. Bilateral posterior tibialis pulse +2. Bilateral dorsi/plantarflexion 4/5. DTR +1 bilaterally). Absent: pedal edema, joint swelling, calf tenderness Back exam: Present: normal inspection, muscle spasm, paraspinal tenderness (Positive right paralumbar muscle spasm and point tenderness causing increased RLE paresthesia with compression), vertebral tenderness (Positive lumbar tenderness without crepitus or step-off) Neurological exam: Present: alert, oriented X3, CN II-XII intact Psychiatric exam: Present: normal affect, normal mood Skin exam: Present: warm, dry, intact, normal color. Absent: rash <GelyScout - Last Filed: 03/01/25 21:08> Course Vital Signs 02/28/25 02/28/25 21:07 23:59 Temperature 98.2 F 98.3 F Pulse Rate 105 H 75 Respiratory 18 16 Rate Blood Pressure 152/89 114/74 O2 Sat by Pulse 96 98 Oximetry Medical Decision Making <Scout Hong - Filed: 03/01/25 21:08> - Medical Decision Making Was pt. sent in by a medical professional or institution (, PA, COFFEE HOST, urgent care, hospital, or retirement...) When possible be specific @ -No Did you speak to anyone other than the patient for history (EMS, parent, family, police, friend...)? What history was obtained from this source @ -No Did you review nursing and triage notes (agree or disagree)? Why? @ -I reviewed and agree with nursing and triage notes Were old charts reviewed (outside hosp., previous admission, EMS record, old EKG, old radiological studies, urgent care reports/EKG's, retirement records)? Report findings @ -No old charts were reviewed Differential Diagnosis (chest pain, altered mental status, abdominal pain women, abdominal pain men, vaginal bleeding, weakness, fever, dyspnea, syncope, headache, dizziness, GI bleed, back pain, seizure, CVA, palpatations, mental health, musculoskeletal)? @ -Differential Back Pain: Strain, zoster, cauda equina syndrome, epidural abscess, vertebral osteomyelitis, discitis, fracture, subluxation, disc herniation, DJD, spinal stenosis, dissection, AAA, pancreatitis, peptic ulcer disease, pyelonephritis, kidney stone, this is not meant to be an all-inclusive list. EKG interpreted by me (3pts min.). @ -Not done X-rays interpreted by me (1pt min.). @ -None done CT interpreted by me (1pt min.). @ -None done U/S interpreted by me (1pt. min.). @ -None done What testing was considered but not performed or refused? (CT, X-rays, U/S, labs)? Why? @ -Lumbar CT was considered due to patient's complaint of being unable to walk/stand due to pain and patient mentioning collapse, yet patient was able to ambulate to ER room from triage, demonstrating ability to ambulate. What meds were considered but not given or refused? Why? @ -None Did you discuss the management of the patient with other professionals (professionals i.e. DrJamaica, PA, COFFEE HOST, lab, RT, psych nurse, psychiatric social worker, chicken boner, teacher, correction officer, business case analyst)? Give summary @ -No Was smoking cessation discussed for >3mins.? @ -No Was critical care preformed (if so, how long)? @ -No Were there social determinants of health that impacted care today? How? (Homelessness, low income, unemployed, alcoholism, drug addiction, transportation, low edu. Level, literacy, decrease access to med. care, residential, rehab)? @ -No Was there de-escalation of care discussed even if they declined (Discuss DNR or withdrawal of care, Hospice)? DNR status @ -No What co-morbidities impacted this encounter? (DM, HTN, Smoking, COPD, CAD, Cancer, CVA, ARF, Chemo, Hep., AIDS, mental health diagnosis, sleep apnea, morbid obesity)? @ -None Was patient admitted / discharged? Hospital course, mention meds given and route, prescriptions, significant lab abnormalities, going to OR and other pertinent info. @ -Patient initially provided IM Toradol, Norflex, p.o. Tylenol and lidocaine patch. Patient notes some relief of pain afterwards. Patient care handed off to Dr. Burgess after providing HPI and physical exam findings. Patient provided IM Dilaudid for additional pain management and discharged with tramadol starter pack. Discussed patient with Dr. Burgess. Undiagnosed new problem with uncertain prognosis? @ -No Drug Therapy requiring intensive monitoring for toxicity (Heparin, Nitro, Insulin, Cardizem)? @ -No Were any procedures done? @ -No Diagnosis/symptom? @ -Mechanical back pain, lumbar strain Acute, or Chronic, or Acute on Chronic? @ -Acute Uncomplicated (without systemic symptoms) or Complicated (systemic symptoms)? @ -Uncomplicated Side effects of treatment? @ -No Exacerbation, Progression, or Severe Exacerbation? @ -Exacerbation Poses a threat to life or bodily function? How? (Chest pain, [place], [place], pneumonia, PE, COPD, DKA, ARF, appy, cholecystitis, CVA, Diverticulitis, Homicidal, Suicidal, threat to staff... and all critical care pts) @ -No (Scout Hong) Disposition Is patient prescribed a controlled substance at d/c from ED?: No Time of Disposition: 23:30 <Vasiliy Burgess - Last Filed: 02/28/25 23:31> Is patient prescribed a controlled substance at d/c from ED?: No <Scout Hong - Last Filed: 03/01/25 21:08> Clinical Impression: Strain of lumbar region, Mechanical back pain, Mid back pain, Lumbar radiculopathy Disposition: HOME SELF-CARE Condition: Fair Instructions (If sedation given, give patient instructions): Acute Low Back Pain (ED) Referrals: Garland Lopez MD [Primary Care Provider] - 1-2 days
[2025-02-28] MEDS: ORPHENADRINE 30 MG/ML 2 ML VIAL IM STA (22:48)
[2025-02-28] MEDS: KETOROLAC 15 MG/ML 1 ML VIAL IM STA (22:48)
[2025-02-28] MEDS: ACETAMINOPHEN TAB 500 MG TAB PO STA (22:49)
[2025-02-28] MEDS: LIDOCAINE 4% PATCH TOPICAL ONE (22:50)
[2025-02-28] MEDS: traMADol 50 MG STARTER PACK 3 TAB BTL PO STA (23:53)
[2025-02-28] MEDS: HYDROmorphone 1 MG/ML 1 ML SYRINGE IM STA (23:54)
[2025-03-01 00:08] VITALS: BP 114/74; PULSE 75; RESP 16; TEMP 98.3
== END 2025-02-28 23:59 | disposition home or self-care (01) ==
LOC: EC 21:06
DX: S39.012A Strain of muscle, fascia and tendon of lower back, initial encounter (principal); M54.16 Radiculopathy, lumbar region; Z88.0 Allergy status to penicillin; Z88.1 Allergy status to other antibiotic agents; Z88.2 Allergy status to sulfonamides; Z91.040 Latex allergy status; Z91.018 Allergy to other foods; Z88.6 Allergy status to analgesic agent; Z87.891 Personal history of nicotine dependence; X58.XXXA Exposure to other specified factors, initial encounter
CPT/HCPCS: 99283; 96372 ×3; J2360; J1171; J1885

== ENCOUNTER → 2025-03-04 | Outpatient (CLI) | payer OTHER ==
--- NOTE | 2025-03-04 09:20 | CT ---
EXAMINATION TYPE: CT lumbar spine wo con DATE OF EXAM: 03/04/2025 9:09 AM COMPARISON: None. CLINICAL INDICATION: Female, 29 years old with history of M54.5 lumbago; PHH, lower back pain, no kno wn injury TECHNIQUE: CT of the lumbar spine without IV contrast. Coronal and sagittal reconstructions performed . CT DLP: 894 mGycm, Automated exposure control for dose reduction was used. FINDINGS: Vertebral body heights are preserved and alignment is maintained. Minimal bulging disc L4-L5 and L5-S1. No large focal disc herniation or significant spinal canal stenosis identified by CT. Changes result in mild bilateral neuroforaminal stenoses at L5-S1 and on the left at L4-L5. No prevertebral paravertebral soft tissue abnormality seen. IMPRESSION: 1. No vertebral compression collapse or malalignment. 2. Mild degenerative with disc bulging L4-L5 and L5-S1. 3. This contributes to mild bilateral neural foraminal stenoses at L5-S1 and on the left at L4-L5. 4. No large focal disc herniation or spinal canal stenosis seen by CT. [facility], Workstation: [employer], 03/04/2025 9:18 AM
== END | disposition home or self-care (01) ==
LOC: RADCTMAIN 08:47
PROVIDERS: ATTEND Family Medicine
DX: M51.370 Other intervertebral disc degeneration, lumbosacral region with discogenic back pain only (principal); M99.73 Connective tissue and disc stenosis of intervertebral foramina of lumbar region
CPT/HCPCS: 72131